=== PATIENT | female | born 1960 | race Hispanic/Latino ===

== ENCOUNTER 2018-12-27 07:14 | Emergency (ER) | payer OTHER ==
--- OUTSIDE RECORDS SUMMARY | 2018-12-27 07:17 | XMS REPORT | Clinical Summary ---
:1960 Author Organization [facility] Address [address] [place] [address] Care Team Providers Name Role Phone Terry Stapleton MD Primary Care Provider Allergies No Known Allergies Medications Medication Sig Dispensed Refills Start End Status Date Date insulin aspart U-100 Inject 15 Units 10 mL 0 Active (NOVOLOG) 100 unit/mL subcutaneously 3 018 injection (three) times daily before meals. metFORMIN (GLUCOPHAGE) Take 500 mg by 0 Active 500 MG tablet mouth 2 (two) times daily with breakfast and dinner. insulin glargine Inject 55 Units 45 mL 2 Active (LANTUS) 100 unit/mL subcutaneously 018 (3 mL) InPn every morning. zolpidem (AMBIEN) 10 Take 1 tablet (10 30 tablet 0 Active mg tablet mg total) by 018 mouth every night as needed for Insomnia. hydroCHLOROthiazide Take 1 tablet (25 90 tablet 0 12/23/2 12/23/ Active (HYDRODIURIL) 25 MG mg total) by 019 2020 tablet mouth daily. carvedilol (COREG) 25 Take 1 tablet (25 180 tablet 1 12/23/2 Active MG tablet mg total) by 019 mouth 2 (two) times daily with breakfast and dinner. valsartan (DIOVAN) 160 Take 1 tablet 90 tablet 0 12/23/2 Active MG tablet (160 mg total) by 019 mouth daily. isosorbide mononitrate Take 1 tablet (60 90 tablet 1 12/23/2 Active (IMDUR) 60 MG 24 hr mg total) by 019 tablet mouth daily. gabapentin (NEURONTIN) Take 1 capsule 90 capsule 0 Active 300 MG capsule (300 mg total) by 019 mouth 3 (three) times daily. glipiZIDE (GLUCOTROL Take 1 tablet (10 30 tablet 3 Active XL) 10 MG 24 hr tablet mg total) by 019 mouth daily. atorvastatin (LIPITOR) Take 1 tablet (20 90 tablet 3 Active 20 MG tablet mg total) by 019 mouth every evening. promethazine Take 1 tablet (25 15 tablet 0 12/28/11/23/ Discontinued (PHENERGAN) 25 MG mg total) by 2017 tablet mouth every 6 (six) hours as needed for Nausea for up to 15 doses. insulin aspart Inject 10 Units 10 mL 0 05/03/2 06/06/ Discontinued (NOVOLOG) 100 unit/mL subcutaneously 3 2017 injection (three) times daily before meals. insulin glargine Inject 45 Units 10 mL 0 05/03/2 06/06/ Discontinued (LANTUS) 100 unit/mL subcutaneously 2 2017 injection (two) times daily Use as directed. valsartan (DIOVAN) 160 Take 1 tablet 90 tablet 0 05/03/2 05/03/ MG tablet (160 mg total) by 2017 mouth daily. gabapentin (NEURONTIN) Take 1 capsule 90 capsule 0 07/30/2 02/15/ Discontinued 100 MG capsule (100 mg total) by 2017 mouth 3 (three) times daily. carvedilol (COREG) 25 Take 1 tablet (25 180 tablet 0 08/04/2 02/23/ Discontinued MG tablet mg total) by 2017 mouth 2 (two) times daily with breakfast and dinner. glipiZIDE (GLUCOTROL Take 1 tablet (10 30 tablet 3 08/04/2 02/03/ Discontinued XL) 10 MG 24 hr tablet mg total) by 2017 mouth daily. atorvastatin (LIPITOR) Take 1 tablet (20 90 tablet 3 06/06/ Discontinued 20 MG tablet mg total) by 2017 mouth every evening. torsemide (DEMADEX) 10 TAKE ONE TABLET 60 tablet 0 10/15/12/29/ Discontinued MG tablet BY MOUTH ONCE 2017 DAILY IN THE EVENING zolpidem (AMBIEN) 10 Take 1 tablet (10 30 tablet 0 10/18/01/24/ Discontinued mg tablet mg total) by 2017 mouth every night as needed for Insomnia. valsartan (DIOVAN) 160 TAKE ONE TABLET 90 tablet 0 11/03/2 01/27/ Discontinued MG tablet BY MOUTH ONCE 2017 DAILY isosorbide mononitrate TAKE ONE TABLET 90 tablet 0 11/15/2 02/05/ Discontinued (IMDUR) 60 MG 24 hr BY MOUTH ONCE 2017 tablet DAILY torsemide (DEMADEX) 10 TAKE ONE TABLET 60 tablet 0 01/03/2 03/04/ Discontinued MG tablet BY MOUTH ONCE 2017 DAILY IN THE EVENING benzonatate (TESSALON) Take 1 capsule 20 capsule 0 01/31/ 200 MG capsule (200 mg total) by 2017 mouth 3 (three) times daily as needed for Cough for up to 7 days. azithromycin Please give Z 6 tablet 0 06/06/ Discontinued (ZITHROMAX) 250 MG Pack. 2017 tablet mometasone (NASONEX) 2 sprays by Nasal 17 g 12 Discontinued 50 mcg/actuation nasal route daily. 2017 spray zolpidem (AMBIEN) 10 Take 1 tablet (10 30 tablet 0 06/06/ Discontinued mg tablet mg total) by 2017 mouth every night as needed for Insomnia. valsartan (DIOVAN) 160 TAKE ONE TABLET 90 tablet 0 01/27/2 04/26/ Discontinued MG tablet BY MOUTH ONCE 2017 DAILY glipiZIDE (GLUCOTROL Take 1 tablet (10 90 tablet 2 02/07/06/06/ Discontinued XL) 10 MG 24 hr tablet mg total) by 2017 mouth daily. isosorbide mononitrate TAKE ONE TABLET 90 tablet 0 02/07/04/07/ Discontinued (IMDUR) 60 MG 24 hr BY MOUTH ONCE 2017 tablet DAILY gabapentin (NEURONTIN) TAKE ONE CAPSULE 180 capsule 1 06/06/ Discontinued 100 MG capsule BY MOUTH THREE 2017 TIMES DAILY carvedilol (COREG) 25 Take 1 tablet (25 180 tablet 1 02/23/2 03/11/ Discontinued MG tablet mg total) by 2017 mouth 2 (two) times daily with breakfast and dinner. torsemide (DEMADEX) 10 TAKE 1 TABLET BY 60 tablet 0 03/08/2 06/06/ Discontinued MG tablet MOUTH ONCE DAILY 2017 IN THE EVENING carvedilol (COREG) 25 Take 1 tablet (25 180 tablet 1 06/06/ Discontinued MG tablet mg total) by 2017 mouth 2 (two) times daily with breakfast and dinner. isosorbide mononitrate TAKE 1 TABLET BY 90 tablet 0 2 06/06/ Discontinued (IMDUR) 60 MG 24 hr MOUTH ONCE DAILY 2017 tablet glipiZIDE (GLUCOTROL TAKE ONE TABLET 30 tablet 3 06/06/ Discontinued XL) 10 MG 24 hr tablet BY MOUTH ONCE 2017 DAILY valsartan (DIOVAN) 160 TAKE 1 TABLET BY 90 tablet 0 04/29/06/06/ Discontinued MG tablet MOUTH ONCE DAILY 2017 glipiZIDE (GLUCOTROL Take 1 tablet (10 30 tablet 3 12/23/ Discontinued XL) 10 MG 24 hr tablet mg total) by 2018 mouth daily. insulin glargine Inject 50 Units 10 mL 2 09/04/ (LANTUS) 100 unit/mL subcutaneously 2 2017 injection (two) times daily for 90 days Use as directed. carvedilol (COREG) 25 Take 1 tablet (25 180 tablet 1 12/23/ Discontinued MG tablet mg total) by 2018 mouth 2 (two) times daily with breakfast and dinner. valsartan (DIOVAN) 160 Take 1 tablet 90 tablet 0 10/26/ Discontinued MG tablet (160 mg total) by 2017 mouth daily. isosorbide mononitrate Take 1 tablet (60 90 tablet 0 10/17/ Discontinued (IMDUR) 60 MG 24 hr mg total) by 2017 tablet mouth daily. gabapentin (NEURONTIN) Take 1 capsule 180 capsule 1 09/16/ Discontinued 100 MG capsule (100 mg total) by 2017 mouth 3 (three) times daily. glipiZIDE (GLUCOTROL Take 1 tablet (10 90 tablet 2 09/16/ Discontinued XL) 10 MG 24 hr tablet mg total) by 2017 mouth daily. atorvastatin (LIPITOR) Take 1 tablet (20 90 tablet 3 12/23/ Discontinued 20 MG tablet mg total) by 2018 mouth every evening. torsemide (DEMADEX) 10 Take 1 tablet (10 90 tablet 2 11/23/ Discontinued MG tablet mg total) by 2017 mouth every evening. insulin aspart U-100 Inject 10 Units 10 mL 0 Discontinued (NOVOLOG) 100 unit/mL subcutaneously 3 2017 injection (three) times daily before meals. zolpidem (AMBIEN) 10 Take 1 tablet (10 30 tablet 0 11/23/ Discontinued mg tablet mg total) by 2017 mouth every night as needed for Insomnia. gabapentin (NEURONTIN) Take 1 capsule 90 capsule 0 Discontinued 300 MG capsule (300 mg total) by 2018 mouth 3 (three) times daily. metFORMIN (GLUCOPHAGE) Take 1 tablet 180 tablet 3 Discontinued 1000 MG tablet (1,000 mg total) 2017 by mouth 2 (two) times daily with breakfast and dinner. insulin glargine Inject 55 Units 0 Discontinued (LANTUS) 100 unit/mL subcutaneously 2 2017 (3 mL) InPn (two) times daily. insulin glargine Inject 55 Units 45 mL 2 Discontinued (LANTUS) 100 unit/mL subcutaneously 2 2017 (3 mL) InPn (two) times daily. isosorbide mononitrate Take 1 tablet (60 90 tablet 1 Discontinued (IMDUR) 60 MG 24 hr mg total) by 2018 tablet mouth daily. valsartan (DIOVAN) 160 Take 1 tablet 90 tablet 1 10/31/ Discontinued MG tablet (160 mg total) by 2017 mouth daily. valsartan (DIOVAN) 320 Take 0.5 tablets 90 tablet 0 11/23/ Discontinued MG tablet (160 mg total) by 2017 mouth daily. valsartan (DIOVAN) 160 Take 160 mg by 0 12/23/ Discontinued MG tablet mouth daily. 2019 Active Problems Problem Noted Date Chronic systolic congestive heart failure 01/10/2016 Ingrowing nail with infection 01/10/2016 Pancreatitis 12/06/2014 CHF (congestive heart failure) 07/05/2013 Chest pain 07/05/2013 HTN (hypertension) 07/05/2013 DM type 2 (diabetes mellitus, type 2) 07/05/2013 Encounters Date Type Specialty Care Team Description 12/23/2018 Office Visit Cardiology Sincere Monte MD 12/19/2018 Telephone Cardiology Eleanor Miner, RN 11/23/2018 Office Visit Cardiology Sincere Monte MD Type 2 diabetes mellitus without complication, with long-term current use of insulin (HCC) ( Primary Dx); Type 2 diabetes mellitus with complication, unspecified whether nursing home insulin use (HCC) 11/23/2018 Orders Only Cardiology Sincere Monte MD Type 2 diabetes mellitus with complication, unspecified whether rat exterminator insulin use (HCC) (Primary Dx) 10/31/2018 Refill Cardiology Sincere Monte MD 10/28/2018 Telephone Cardiology Eleanor Miner RN 10/26/2018 Refill Cardiology Sincere Monte MD 10/21/2018 Refill Cardiology Sincere Monte MD 10/17/2018 Refill Cardiology Sincere Monte MD 10/11/2018 Refill Cardiology Sincere Monte MD 09/19/2018 Telephone Cardiology Eleanor Miner, RN 09/16/2018 Office Visit Cardiology Sincere Monte MD Type 2 diabetes mellitus without complication, with long-term current use of insulin (HCC) ( Primary Dx); Essential hypertension with goal blood pressure less than 130/80; Obesity, unspecified obesity severity, unspecified obesity type; Chronic systolic congestive heart failure (HCC); MARITZA (obstructive sleep apnea) 09/15/2018 Abstract Cardiology Eleanor Miner, RN 06/06/2018 Office Visit Cardiology Sincere Monte MD Type 2 diabetes mellitus without complication, with long-term current use of insulin (HCC) ( Primary Dx); Essential hypertension with goal blood pressure less than 130/80; Obesity, unspecified obesity severity, unspecified obesity type; Chronic systolic congestive heart failure (HCC) 06/06/2018 Refill Cardiology Sincere Monte MD 06/03/2018 Refill Cardiology Sincere Monte MD 05/24/2018 Refill Cardiology Sincere Monte MD 04/26/2018 Refill Cardiology Sincere Monte MD 04/19/2018 Refill Cardiology Sincere Monte MD 04/07/2018 Refill Cardiology Sincere Monte MD 03/18/2018 Refill Cardiology Sincere Monte MD 03/11/2018 Refill Cardiology Sincere Monte MD 03/04/2018 Refill Cardiology Sincere Monte MD 02/23/2018 Refill Cardiology Sincere Monte MD 02/15/2018 Refill Cardiology Sincere Monte MD 02/05/2018 Refill Cardiology Sincere Monte MD 02/03/2018 Refill Cardiology Sincere Monte MD 01/27/2018 Refill Cardiology Sincere Monte MD 01/24/2018 Office Visit Cardiology Sincere Monte MD Type 2 diabetes mellitus without complication, without long-term current use of insulin (HCC) ( Primary Dx); Essential hypertension with goal blood pressure less than 130/80; Obesity, unspecified obesity severity, unspecified obesity type; MARITZA (obstructive sleep apnea); Chronic systolic congestive heart failure (HCC) 12/29/2017 Refill Cardiology Sincere Monte MD after 12/26/2017 Immunizations Name Dates Previously Given Next Due Influenza TIV (IM) 09/14/2018, 10/30/2017 Pneumococcal Polysaccharide (Pneumovax) 09/14/2018, 12/07/2014 Family History Medical History Relation Name Comments Diabetes Brother Diabetes Father Heart disease Father Diabetes Sister Relation Name Status Comments Brother Father Sister Social History Tobacco Use Types Packs/Day Years Used Date Never Smoker Smokeless Tobacco: Never Used Alcohol Use Drinks/Week oz/Week Comments No Sex Assigned at Date Recorded Not on file Job Start Date Occupation Industry Not on file Not on file Not on file Travel History Travel Start Travel End No recent travel history available. Last Filed Vital Signs Vital Sign Reading Time Taken Blood Pressure 178/84 12/23/2018 10:41 AM [employer] Pulse 66 12/23/2018 9:52 AM [employer] Temperature 36.9 C (98.4 F) 12/23/2018 9:52 AM [employer]ER Respiratory Rate 14 12/23/2018 9:52 AM [employer] DES[employer]ER Oxygen Saturation 97% 12/23/2018 9:52 AM [employer] DES[employer]ER Inhaled Oxygen Concentration - - Weight 105.7 kg (233 lb) 12/23/2018 9:52 AM [employer] Height 165.1 cm (5' 5") 12/23/2018 9:52 AM [employer] Body Mass Index 38.77 12/23/2018 9:52 AM [employer] Plan of Treatment Date Type Specialty Care Team Description 02/20/2019 Office Visit Cardiology Sincere Monte MD [address] [facility] [place] [address] Health Maintenance Due Date Last Done Comments INFLUENZA VACCINE 08/29/2018 Procedures Procedure Name Priority Date/Time Associated Comments Diagnosis HEMOGLOBIN A1C STAT 11/23/2018 9:50 Type 2 diabetes Results for this AM [employer] mellitus with procedure are in complication, the results unspecified whether section. rat exterminator insulin use ([facility]) COMPREHENSIVE STAT 06/06/2018 11:29 Type 2 diabetes Results for this METABOLIC PANEL AM CDT mellitus without procedure are in complication, with the results long-term current section. use of insulin ([facility]) LIPID PANEL STAT 06/06/2018 11:29 Type 2 diabetes Results for this AM CDT mellitus without procedure are in complication, with the results long-term current section. use of insulin ([facility]) HEMOGLOBIN A1C Routine 06/06/2018 11:29 Type 2 diabetes Results for this AM CDT mellitus without procedure are in complication, with the results long-term current section. use of insulin ([facility]) TSH/FREE T4 IF Routine 06/06/2018 11:29 Type 2 diabetes Results for this INDICATED AM CDT mellitus without procedure are in complication, with the results long-term current section. use of insulin ([facility]) HEMOGLOBIN A1C Routine 01/24/2018 11:41 Type 2 diabetes Results for this AM [employer] mellitus without procedure are in complication, the results without long-term section. 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 Hemoglobin A1C 8.5 (H) 4.3 - 6.1 % [facility] Specimen Blood Performing Organization Address City/State/Zipcode Phone Number [address] [address] [place] TSH/Free T4 If Indicated (06/06/2018 11:29 AM CDT) TSH 2.33 0.35 - 4.94 uIU/mL [facility] Specimen Blood Performing Organization Address City/[facility] Phone Number [address] [address] [place] Lipid panel (06/06/2018 11:29 AM CDT) Triglycerides 116 mg/dL [facility] Cholesterol 130 mg/dL [facility] HDL 34 mg/dL [facility] LDL Calculated 73 mg/dL [facility] Specimen Blood Narrative Performed At [facility] Triglyceride Reference Range: Low Risk <150 [id number] High Risk 200-499 Very High Risk>=500 Cholesterol Reference Range: Low Risk <200 [id number] High Risk>240 HDL Cholesterol Reference Range: Low Risk >=60 High Risk <40 LDL Cholesterol Reference Range: Optimal<100 Near [id number] Very High >=190 Performing Organization Address City/[facility] Phone Number [address] [address] [phone] [place] Comprehensive metabolic panel (06/06/2018 11:29 AM CDT) Protein, Total 7.2 6.0 - 8.3 gm/dL [facility] Albumin 3.8 3.5 - 5.0 g/dL [facility] Alkaline Phosphatase 141 40 - 150 U/L [facility] Total Bilirubin 0.7 0.2 - 1.2 mg/dL [facility] Sodium 133 (L) 136 - 145 meq/L [facility] Potassium 4.1 3.5 - 5.1 meq/L [facility] Chloride 100 98 - 107 meq/L [facility] CO2 27 22 - 29 meq/L [facility] BUN 21 7 - 21 mg/dL [facility] Creatinine 1.22 0.57 - 1.25 mg/dL [facility] Glucose 293 (H) 70 - 105 mg/dL [facility] Calcium 9.3 8.4 - 10.2 mg/dL [facility] AST 16 5 - 34 U/L [facility] ALT 16 6 - 55 U/L [facility] EGFR 45Comment: ESTIMATED GFR mL/min/1.73 sq m [facility] IS NOT ACCURATE [facility] CREATININE CLEARANCE IN PREDICTING GLOMERULAR FILTRATION RATE. ESTIMATED GFR IS NOT APPLICABLE FOR DIALYSIS PATIENTS. Specimen Blood Performing Organization Address City/State/Zipcode Phone Number [facility] [address] [place] [phone] CENTER after 12/26/2017 Insurance Payer Benefit Plan / Group Subscriber ID Type Phone Address MEDICARE MEDICARE A B xxxxxxxxxxx Medicare Advance Directives For more information, please contact:[address] [phone] Code Status Date Activated Date Inactivated Comments Full Code 12/06/2014 8:09 AM 12/11/2014 5:51 PM This code status was determined by: Patient Code ONE 07/05/2013 10:30 AM 07/07/2013 6:37 PM All possible means of support, including: cardiac massage, mechanical ventilation, and defibrillation will be used to support life.
--- OUTSIDE RECORDS SUMMARY | 2018-12-27 07:18 | XMS REPORT ---
:1960 Author Organization [facility] Address [address] [place] [address] Dr. Paredes [address] [place] [id number] Care Team Providers Name Role Phone RADHA WADE Unavailable Unavailable ELSA AVITIA Unavailable Unavailable Problems This patient has no known problems. Allergies, Adverse Reactions, Alerts This patient has no known allergies or adverse reactions. Medications This patient has no known medications. Results Test Description Test Time Test Comments Text Results Atomic Results Result Comments HEMOGLOBIN A1C 2018-11-23 11:30:00 Test Item Value Reference Range Comments HEMOGLOBIN A1C (BEAKER) (test tgfj=251) 8.5 % 4.3-6.1 HEMOGLOBIN [id number] 13:33:00 Test Item Value Reference Range Comments HEMOGLOBIN A1C (BEAKER) (test fycs=723) 10.9 % 4.3-6.1 TSH/FREE T4 IF [id number] 12:27:00 Test Item Value Reference Range Comments THYROID STIMULATING HORMONE (BEAKER) (test 2.33 uIU/mL 0.35-4.94 chom=874) LIPID [id number] 12:10:00 Test Item Value Reference Range Comments TRIGLYCERIDES (BEAKER) (test octi=072) 116 mg/dL CHOLESTEROL (BEAKER) (test mtkr=060) 130 mg/dL HDL CHOLESTEROL (BEAKER) (test kfde=597) 34 mg/dL LDL CHOLESTEROL CALCULATED (BEAKER) (test 73 mg/dL gtrq=163) Triglyceride Reference Range: Low Risk <150 Borderline 150- 199 High Risk 200-499 Very High Risk >=500Cholesterol Reference Range: Low Risk <200 Borderline 200-239 High Risk > 240HDL Cholesterol Reference Range: Low Risk >=60 High Risk <40LDL Cholesterol Reference Range: Optimal <100 Near Optimal 100-129 Borderline 130-159 High 160-189 Very High >=190COMPREHENSIVE METABOLIC [id number] 12:10:00 Test Item Value Reference Range Comments TOTAL PROTEIN (BEAKER) 7.2 gm/dL 6.0-8.3 (test uftb=128) ALBUMIN (BEAKER) (test 3.8 g/dL 3.5-5.0 irti=2028) ALKALINE PHOSPHATASE 141 U/L 40-150 (BEAKER) (test fjej=555) BILIRUBIN TOTAL (BEAKER) 0.7 mg/dL 0.2-1.2 (test sjnd=691) SODIUM (BEAKER) (test 133 meq/L 136-145 hizp=538) POTASSIUM (BEAKER) (test 4.1 meq/L 3.5-5.1 ylvz=189) CHLORIDE (BEAKER) (test 100 meq/L 98-107 thiu=186) CO2 (BEAKER) (test 27 meq/L 22-29 rghs=703) BLOOD UREA NITROGEN 21 mg/dL 7-21 (BEAKER) (test mhlv=505) CREATININE (BEAKER) (test 1.22 mg/dL 0.57-1.25 bagd=058) GLUCOSE RANDOM (BEAKER) 293 mg/dL 70-105 (test zqpl=583) CALCIUM (BEAKER) (test 9.3 mg/dL 8.4-10.2 tcwo=398) AST (SGOT) (BEAKER) (test 16 U/L 5-34 urpe=769) ALT (SGPT) (BEAKER) (test 16 U/L 6-55 dmrh=470) EGFR (BEAKER) (test 45 mL/min/1.73 sq m ESTIMATED GFR IS NOT dqma=1134) ACCURATE CREATININE CLEARANCE IN PREDICTING GLOMERULAR FILTRATION RATE. ESTIMATED GFR IS NOT APPLICABLE FOR DIALYSIS PATIENTS. HEMOGLOBIN [id number] 13:44:00 Test Item Value Reference Range Comments HEMOGLOBIN A1C (BEAKER) (test tmda=393) 10.8 % 4.3-6.1 HEMOGLOBIN [id number] 09:58:00 Test Item Value Reference Range Comments HEMOGLOBIN A1C (BEAKER) (test wpsp=445) 8.3 % 4.3-6.1 TSH/FREE T4 IF [id number] 13:49:00 Test Item Value Reference Range Comments THYROID STIMULATING HORMONE (BEAKER) (test 1.94 uIU/mL 0.35-4.94 guui=518) HEMOGLOBIN [id number] 12:27:00 Test Item Value Reference Range Comments HEMOGLOBIN A1C (BEAKER) (test hbcw=244) 11.3 % 4.3-6.1 LIPID [id number] 11:56:00 Test Item Value Reference Range Comments TRIGLYCERIDES (BEAKER) (test ical=520) 162 mg/dL CHOLESTEROL (BEAKER) (test xpno=134) 136 mg/dL HDL CHOLESTEROL (BEAKER) (test vuyg=805) 33 mg/dL LDL CHOLESTEROL CALCULATED (BEAKER) (test 71 mg/dL ubjb=553) Triglyceride Reference Range: Low Risk <150 Borderline 150- 199 High Risk 200-499 Very High Risk >=500Cholesterol Reference Range: Low Risk <200 Borderline 200-239 High Risk > 240HDL Cholesterol Reference Range: Low Risk >=60 High Risk <40LDL Cholesterol Reference Range: Optimal <100 Near Optimal 100-129 Borderline 130-159 High 160-189 Very High >=190COMPREHENSIVE METABOLIC [id number] 11:56:00 Test Item Value Reference Range Comments TOTAL PROTEIN (BEAKER) 6.8 gm/dL 6.0-8.3 (test tfmm=967) ALBUMIN (BEAKER) (test 3.6 g/dL 3.5-5.0 ovvh=6190) ALKALINE PHOSPHATASE 138 U/L 40-150 (BEAKER) (test gfwk=790) BILIRUBIN TOTAL (BEAKER) 0.5 mg/dL 0.2-1.2 (test zvwb=981) SODIUM (BEAKER) (test 135 meq/L 136-145 jbjr=085) POTASSIUM (BEAKER) (test 4.5 meq/L 3.5-5.1 biby=401) CHLORIDE (BEAKER) (test 103 meq/L 98-107 meot=992) CO2 (BEAKER) (test 25 meq/L 22-29 jfnb=459) BLOOD UREA NITROGEN 25 mg/dL 7-21 (BEAKER) (test qpqv=042) CREATININE (BEAKER) (test 1.16 mg/dL 0.57-1.25 kceq=194) GLUCOSE RANDOM (BEAKER) 341 mg/dL 70-105 (test nzmr=234) CALCIUM (BEAKER) (test 8.8 mg/dL 8.4-10.2 axbv=101) AST (SGOT) (BEAKER) (test 15 U/L 5-34 jmoi=106) ALT (SGPT) (BEAKER) (test 15 U/L 6-55 xyyn=437) EGFR (BEAKER) (test 48 mL/min/1.73 sq m ESTIMATED GFR IS NOT zjzg=5423) ACCURATE CREATININE CLEARANCE IN PREDICTING GLOMERULAR FILTRATION RATE. ESTIMATED GFR IS NOT APPLICABLE FOR DIALYSIS PATIENTS. [id number] 09:01:00 Test Item Value Reference Range Comments D-DIMER QUANTITATIVE (BEAKER) (test owdw=643) < MG/L FEU <0.50 Intended Use: The D-Dimer Assay can be used to aid in the diagnosis of Deep Vein Thrombosis (DVT) and Pulmonary Embolism Disease (PED).In patients with low pre-test probability, various studies concerning STA Liatest D-dimer test have reported that with a cutoff value of 0.50 MG/L FEU, the Negative Predictive Value (NPV) regarding the exclusion of thrombosis is within 95-100% range.CREATINE KINASE (CK), TOTAL AND [id number] 09:01:00 Test Item Value Reference Range Comments CREATINE KINASE TOTAL (BEAKER) (test jggf=474) 43 U/L 29-200 CREATINE KINASE-MB (BEAKER) (test zkfw=803) 0.7 ng/mL 0.0-6.6 CREATINE KINASE-MB INDEX (BEAKER) (test buvk=979) 1.6 % Effective 10/16/2014: CK-MB Reference Range ChangeNew: 0.0-6.6 Previous: 0.0- 4.9CK-MB Reference Range:<6.7 Normal6.7-10.0 Borderline>10.0 AbnormalTROPONIN [id number] 09:01:00 Test Item Value Reference Range Comments TROPONIN I (BEAKER) (test ulsz=338) 0.02 ng/mL 0.00-0.03 Effective 10/16/2014: Reference Range ChangeNew: 0.00-0.03 Previous 0.00- 0.15Troponin I (TnI) levels must be interpreted in the context of the presenting symptoms and the clinical findings. Elevated TnI levels indicate myocardial damage, but are not specific for ischemic heart disease. Elevated TnI levels are seen in patients with other cardiac conditions (including myocarditis and congestive heartfailure), and slight TnI elevations occur in patients with other conditions, including sepsis, renalfailure, acidosis, acute neurological disease, and persistent tachyarrhythmia.BASIC METABOLIC [id number] 08:53:00 Test Item Value Reference Range Comments SODIUM (BEAKER) (test 136 meq/L 136-145 zioz=486) POTASSIUM (BEAKER) (test 4.1 meq/L 3.5-5.1 ssqp=959) CHLORIDE (BEAKER) (test 102 meq/L 98-107 pgrg=473) CO2 (BEAKER) (test 25 meq/L 22-29 ohfw=816) BLOOD UREA NITROGEN 16 mg/dL 7-21 (BEAKER) (test qemw=133) CREATININE (BEAKER) (test 1.00 mg/dL 0.57-1.25 bkvq=354) GLUCOSE RANDOM (BEAKER) 186 mg/dL 70-105 (test tkjh=852) CALCIUM (BEAKER) (test 9.4 mg/dL 8.4-10.2 unpl=949) EGFR (BEAKER) (test 57 mL/min/1.73 sq m ESTIMATED GFR IS NOT paan=6717) ACCURATE CREATININE CLEARANCE IN PREDICTING GLOMERULAR FILTRATION RATE. ESTIMATED GFR IS NOT APPLICABLE FOR DIALYSIS PATIENTS. CBC W/PLT COUNT & AUTO [id number] 08:30:00 Test Item Value Reference Range Comments WHITE BLOOD CELL COUNT (BEAKER) (test crdb=314) 9.2 K/ L 4.0-10.0 RED BLOOD CELL COUNT (BEAKER) (test xvkz=673) 4.74 M/ L 4.00-5.00 HEMOGLOBIN (BEAKER) (test ctbc=734) 14.5 GM/DL 12.0-15.0 HEMATOCRIT (BEAKER) (test kknj=293) 43.7 % 36.0-45.0 MEAN CORPUSCULAR VOLUME (BEAKER) (test kqot=746) 92.2 fL 82.0-99.0 MEAN CORPUSCULAR HEMOGLOBIN (BEAKER) (test 30.7 pg 27.0-33.0 pltx=371) MEAN CORPUSCULAR HEMOGLOBIN CONC (BEAKER) (test 33.3 GM/DL 32.0-36.0 gwya=676) RED CELL DISTRIBUTION WIDTH (BEAKER) (test 12.0 % 10.3-14.2 jmaq=044) PLATELET COUNT (BEAKER) (test gtzb=364) 247 K/CU MM 150-430 MEAN PLATELET VOLUME (BEAKER) (test wvqx=045) 7.8 fL 6.5-10.5 NUCLEATED RED BLOOD CELLS (BEAKER) (test 0 /100 WBC 0-0 fkny=313) NEUTROPHILS RELATIVE PERCENT (BEAKER) (test 57 % tulj=127) LYMPHOCYTES RELATIVE PERCENT (BEAKER) (test 35 % vtra=512) MONOCYTES RELATIVE PERCENT (BEAKER) (test 6 % ztjr=922) EOSINOPHILS RELATIVE PERCENT (BEAKER) (test 2 % aqeo=806) BASOPHILS RELATIVE PERCENT (BEAKER) (test 0 % zing=678) NEUTROPHILS ABSOLUTE COUNT (BEAKER) (test 5.30 K/ L 1.80-8.00 uzuj=983) LYMPHOCYTES ABSOLUTE COUNT (BEAKER) (test 3.21 K/ L 1.48-4.50 sdri=685) MONOCYTES ABSOLUTE COUNT (BEAKER) (test 0.51 K/ L 0.00-1.30 hvzs=455) EOSINOPHILS ABSOLUTE COUNT (BEAKER) (test 0.19 K/ L 0.00-0.50 xlxr=018) BASOPHILS ABSOLUTE COUNT (BEAKER) (test 0.03 K/ L 0.00-0.20 bovc=555) 0.00
[2018-12-27] MEDS ORDERED: METOCLOPRAMIDE 10 MG/2mL INJ ONE (07:45)
[2018-12-27] MEDS ORDERED: KETOROLAC 30 MG/ML INJ ONE (07:46)
[2018-12-27] MEDS ORDERED: NA CHLORIDE 0.9% 1,000 ML ONE (07:46)
[2018-12-27] MEDS ORDERED: DIPHENHYDRAMINE 50 MG/ML VIAL ONE (07:46)
--- NOTE | 2018-12-27 08:52 | EDPHYS ---
Physician Documentation [facility] Name: Terese Alaniz Age: 58 yrs Sex: Female : 1960 Arrival Date: 12/27/2018 Time: 07:18 Bed 7 Private MD: Out, of [facility], [facility] ED Physician Tahira De Los Santos HPI: 12/27 07:33 This 58 yrs old Female presents to ER via Ambulatory with complaints of High ma2 Blood Pressure. 07:33 The patient has elevated blood pressure and discovered this at home. Modifying factors: ma2 The symptoms are alleviated by remaining still, OTC meds, prescription meds. Associated signs and symptoms: Pertinent positives: mild constant headache that is gradual x 1 week has had this before no other symptoms no weakness . Severity of symptoms: At its worst the blood pressure was moderate, in the emergency department the blood pressure is unchanged. The patient has experienced similar episodes in the past. Historical: - Allergies: 07:28 No Known Allergies; ss - PMHx: 07:20 CHF; Hypertension; tw2 07:28 High Cholesterol; Diabetes - IDDM; ss - PSHx: 07:20 ; Cholecystectomy; tw2 - Immunization history:: Adult Immunizations. - Social history:: Smoking status: Patient/guardian denies using alcohol, street drugs, The patient lives with family. - Ebola Screening: : Patient denies travel to an Ebola-affected area in the 21 days before illness onset. - Family history:: not pertinent. ROS: 07:33 Constitutional: Negative for fever, chills, and weight loss, Cardiovascular: Negative ma2 for chest pain, palpitations, and edema, Respiratory: Negative for shortness of breath, cough, wheezing, and pleuritic chest pain, Back: Negative for injury and pain. 07:33 Neuro: Positive for headache, Negative for altered mental status, dizziness, gait disturbance, hearing loss, loss of consciousness, numbness, seizure activity, speech changes, syncope, near syncope, tinnitus, tremor, visual changes. 07:33 All other systems are negative. Exam: 07:33 Constitutional: This is a well developed, well nourished patient who is awake, alert, ma2 and in no acute distress. Chest/axilla: Normal chest wall appearance and motion. Nontender with no deformity. No lesions are appreciated. Cardiovascular: Regular rate and rhythm with a normal S1 and S2. No gallops, murmurs, or rubs. Normal PMI, no JVD. No pulse deficits. Respiratory: Lungs have equal breath sounds bilaterally, clear to auscultation and percussion. No rales, rhonchi or wheezes noted. No increased work of breathing, no retractions or nasal flaring. Abdomen/GI: Soft, non-tender, with normal bowel sounds. No distension or tympany. No guarding or rebound. No evidence of tenderness throughout. MS/ Extremity: Pulses equal, no cyanosis. Neurovascular intact. Full, normal range of motion. Neuro: Awake and alert, GCS 15, oriented to person, place, time, and situation. Cranial nerves II-XII grossly intact. Motor strength 5/5 in all extremities. Sensory grossly intact. Cerebellar exam normal. Normal gait. Vital Signs: 07:22 BP 180 / 91; Pulse 69; Resp 17; Pulse Ox 99% on R/A; tw2 07:25 Temp 97.5(O); Weight 104.33 kg; Height 5 ft. 5 in. (165.10 cm); Pain 7/10; ss 07:57 BP 175 / 87; Pulse 70; Resp 17; Pulse Ox 100% on R/A; tw2 08:54 BP 152 / 77; Pulse 69; Resp 17; Pulse Ox 98% on R/A; tw2 09:45 BP 147 / 68; Pulse 63; Resp 17; Pulse Ox 99% on R/A; tw2 07:25 Body Mass Index 38.27 (104.33 kg, 165.10 cm) ss MDM: 07:24 Patient medically screened. cp 07:33 Differential diagnosis: migraine headache vs tension vs cluster headache. [facility] 08:51 Data reviewed: vital signs, nurses notes. Counseling: I had a detailed discussion with [facility] the patient and/or guardian regarding: the historical points, exam findings, and any diagnostic results supporting the discharge/admit diagnosis, the presence of at least one elevated blood pressure reading (>120/80) during this emergency department visit, the need for outpatient follow up. Response to treatment: the patient's symptoms have resolved after treatment. 12/27 07:45 Order name: IV Start; Complete Time: 07:56 tw2 Administered Medications: 07:52 Drug: Benadryl 50 mg Route: IVP; Site: right wrist; jl7 08:30 Follow up: Response: No adverse reaction; Pain is decreased jl7 07:55 Drug: Reglan 10 mg Route: IVP; Site: right wrist; jl7 08:30 Follow up: Response: No adverse reaction; Pain is decreased jl7 07:55 Drug: TORadol 30 mg Route: IVP; Site: right wrist; jl7 08:30 Follow up: Response: No adverse reaction; Pain is decreased jl7 07:56 Drug: NS 0.9% 1000 ml Route: IV; Rate: 1 bolus; Site: right wrist; jl7 09:50 Follow up: Response: No adverse reaction; IV Status: Completed infusion; IV Intake: tw2 1000ml Disposition: 12/27/18 08:52 Discharged to Home. Impression: Tension-type headache. - Condition is Stable. - Discharge Instructions: General Headache Without Cause. - Prescriptions for Reglan 10 mg Oral Tablet - take 1 tablet by ORAL route every 6 hours take 30 minutes before meals and at bedtime; 20 tablet. - Medication Reconciliation Form, Thank You Letter, Antibiotic Education, Prescription Opioid Use form. - Follow up: Private Physician; When: Tomorrow; Reason: If symptoms return, Continuance of care. Signatures: Clotilde Miguel RN RN Akash Sevilla PA PA cp Wise, Tara, RN RN tw2 Alva Greenwood RN RN jl7 Tahira De Los Santos MD MD ma2 Corrections: (The following items were deleted from the chart) 07:28 07:20 PMHx: Diabetes - NIDDM; tw2 09:49 08:52 12/27/2018 08:52 Discharged to Home. Impression: Tension-type headache. Condition tw2 is Stable. Forms are Medication Reconciliation Form, Thank You Letter, Antibiotic Education, Prescription Opioid Use. Follow up: Private Physician; When: Tomorrow; Reason: If symptoms return, Continuance of care. ma2
--- NOTE | 2018-12-27 08:52 | ER ---
Nurse's Notes [facility] Name: Terese Alaniz Age: 58 yrs Sex: Female : 1960 Arrival Date: 12/27/2018 Time: 07:18 Bed 7 Private MD: Out, [facility] Diagnosis: Tension-type headache Presentation: 12/27 07:21 Initial Sepsis Screen: Does the patient meet any 2 criteria? No. Patient's initial tw2 sepsis screen is negative. Does the patient have a suspected source of infection? No. Patient's initial sepsis screen is negative. 07:22 Risk Assessment: Do you want to hurt yourself or someone else? Patient reports no tw2 desire to harm self or others. 07:22 Acuity: VISHUN 3 tw2 07:25 Presenting complaint: Patient states: High blood pressure x several days despite taking ss medication. Pt also c/o headache that began last night, 06/07. Transition of care: patient was not received from another setting of care. Onset of symptoms is unknown. Care prior to arrival: None. 07:25 Method Of Arrival: Ambulatory ss 07:25 Note Pt reports she has not taken her daily medication yet today. ss Historical: - Allergies: 07:28 No Known Allergies; ss - PMHx: 07:20 CHF; Hypertension; tw2 07:28 High Cholesterol; Diabetes - IDDM; ss - PSHx: 07:20 ; Cholecystectomy; tw2 - Immunization history:: Adult Immunizations. - Social history:: Smoking status: Patient/guardian denies using alcohol, street drugs, The patient lives with family. - Ebola Screening: : Patient denies travel to an Ebola-affected area in the 21 days before illness onset. - Family history:: not pertinent. Screenin:20 Abuse screen: Denies threats or abuse. Nutritional screening: No deficits noted. tw2 Tuberculosis screening: No symptoms or risk factors identified. Fall Risk None identified. Assessment: 07:25 Reassessment: Dr. De Los Santos at bedside at this time. General: Appears in no apparent tw2 distress. obese, Behavior is calm, cooperative, appropriate for age. Pain: Complains of pain in "headache". Neuro: Level of Consciousness is awake, alert, obeys commands, Oriented to person, place, time, situation. Cardiovascular: Heart tones S1 S2 Patient's skin is warm and dry. Respiratory: Airway is patent Respiratory effort is even, unlabored, Respiratory pattern is regular, symmetrical, Breath sounds are clear bilaterally. GI: No signs and/or symptoms were reported involving the gastrointestinal system. Abdomen is round non-distended, obese, Bowel sounds present X 4 quads. : No signs and/or symptoms were reported regarding the genitourinary system. EENT: No signs and/or symptoms were reported regarding the EENT system. Derm: No signs and/or symptoms reported regarding the dermatologic system. Musculoskeletal: Range of motion: intact in all extremities. 08:54 Reassessment: Patient appears in no apparent distress at this time. Patient and/or tw2 family updated on plan of care and expected duration. Pain level reassessed. Patient is alert, oriented x 3, equal unlabored respirations, skin warm/dry/pink. 09:46 Reassessment: Patient appears in no apparent distress at this time. Patient and/or tw2 family updated on plan of care and expected duration. Pain level reassessed. Patient is alert, oriented x 3, equal unlabored respirations, skin warm/dry/pink. Vital Signs: 07:22 BP 180 / 91; Pulse 69; Resp 17; Pulse Ox 99% on R/A; tw2 07:25 Temp 97.5(O); Weight 104.33 kg; Height 5 ft. 5 in. (165.10 cm); Pain 7/10; ss 07:57 BP 175 / 87; Pulse 70; Resp 17; Pulse Ox 100% on R/A; tw2 08:54 BP 152 / 77; Pulse 69; Resp 17; Pulse Ox 98% on R/A; tw2 09:45 BP 147 / 68; Pulse 63; Resp 17; Pulse Ox 99% on R/A; tw2 07:25 Body Mass Index 38.27 (104.33 kg, 165.10 cm) ss ED Course: 07:18 Patient arrived in ED. dl4 07:19 Out, [facility] is Private Physician. dl4 07:19 Bobbi Esposito, JEWELL is Primary Nurse. tw2 07:19 Arm band placed on. tw2 07:20 Bed in low position. Call light in reach. residential monitor on. Pulse ox on. NIBP on. tw2 07:22 Triage completed. tw2 07:24 Akash Sevilla PA is PHCP. cp 07:31 Tahira De Los Santos MD is Attending Physician. ma2 07:42 No provider procedures requiring assistance completed. Missed attempt(s): 22 gauge in tw2 left antecubital area. Bleeding controlled, band aid applied, catheter tip intact. Missed attempt(s): 24 gauge in left hand. Bleeding controlled, band aid applied, catheter tip intact. Missed attempt(s): 24 gauge in right hand. per JEWELL Calle. Bleeding controlled, band aid applied, catheter tip intact. 07:47 Missed attempt(s): 22 gauge in right forearm. per Astrid Mcnamara. Bleeding controlled, band tw2 aid applied, catheter tip intact. 07:50 Inserted saline lock: 22 gauge in right wrist, using aseptic technique. ms 08:55 Awaiting: completion of IV fluids PRIOR to discharge. tw2 09:49 IV discontinued, intact, bleeding controlled, No redness/swelling at site. Pressure tw2 dressing applied. Administered Medications: 07:52 Drug: Benadryl 50 mg Route: IVP; Site: right wrist; jl7 08:30 Follow up: Response: No adverse reaction; Pain is decreased jl7 07:55 Drug: Reglan 10 mg Route: IVP; Site: right wrist; jl7 08:30 Follow up: Response: No adverse reaction; Pain is decreased jl7 07:55 Drug: TORadol 30 mg Route: IVP; Site: right wrist; jl7 08:30 Follow up: Response: No adverse reaction; Pain is decreased jl7 07:56 Drug: NS 0.9% 1000 ml Route: IV; Rate: 1 bolus; Site: right wrist; jl7 09:50 Follow up: Response: No adverse reaction; IV Status: Completed infusion; IV Intake: tw2 1000ml Intake: 09:50 IV: 1000ml; Total: 1000ml. tw2 Outcome: 08:52 Discharge ordered by . ma2 09:49 Discharged to home ambulatory, with family. tw2 09:49 Condition: stable 09:49 Discharge instructions given to patient, family, Instructed on discharge instructions, follow up and referral plans. no drinking with medication, no driving heavy equipment, medication usage, Demonstrated understanding of instructions, follow-up care, medications, Prescriptions given X 1. 09:49 Patient left the ED. tw2 Signatures: Naima Mcginnis ms, Shelby, RN RN ss Akash Sevilla PA PA cp Wise, Tara, RN RN tw2 Alva Greenwood RN RN jl7 Tahira De Los Santos MD MD ma2 Obinna Posey dl4 Corrections: (The following items were deleted from the chart) 07:20 PMHx: Diabetes - NIDDM; tw2 ss
== END 2018-12-27 09:49 | disposition home or self-care (01) ==
LOC: ER 07:14
DX: G44.209 Tension-type headache, unspecified, not intractable (principal); R03.0 Elevated blood-pressure reading, without diagnosis of hypertension; E78.00 Pure hypercholesterolemia, unspecified; E11.9 Type 2 diabetes mellitus without complications; Z79.4 Long term (current) use of insulin
CPT/HCPCS: 96361; 96374; 96375; 99284; J2765; J7030

== ENCOUNTER 2019-06-04 17:46 | Emergency (ER) | payer OTHER ==
--- OUTSIDE RECORDS SUMMARY | 2019-06-04 17:49 | XMS REPORT | Clinical Summary ---
:1960 Author Organization [facility] Address [address] [place] [address] Care Team Providers Name Role Phone Terry [...] subcutaneously 018 (3 mL) InPn every morning. carvedilol (COREG) 25 Take 1 tablet (25 180 tablet 1 02/20/2 Active MG tablet mg total) by 019 mouth 2 (two) times daily with breakfast and dinner. isosorbide mononitrate Take 1 tablet (60 90 tablet 1 02/20/2 Active (IMDUR) 60 MG 24 hr mg total) by 019 tablet mouth daily. gabapentin (NEURONTIN) Take 1 capsule 90 capsule 0 02/20/2 Active 300 MG capsule (300 mg total) by 019 mouth 3 (three) times daily. atorvastatin (LIPITOR) Take 1 tablet (20 90 tablet 3 02/20/2 Active 20 MG tablet mg total) by 019 mouth every evening. glipiZIDE (GLUCOTROL Take 1 tablet (10 90 tablet 1 02/20/2 Active XL) 10 MG 24 hr tablet mg total) by 019 mouth daily. ENTRESTO 49-51 mg Tab Take 1 tablet by 0 05/18/2 Active mouth 2 (two) 019 times daily. torsemide (DEMADEX) 10 Take 10 mg by 2 Active MG tablet mouth daily. 019 spironolactone Take 25 mg by 3 Active (ALDACTONE) 25 MG mouth daily. 019 tablet promethazine Take 1 tablet (25 15 tablet 0 12/28/11/23/ Discontinued (PHENERGAN) 25 MG mg total) by 2017 tablet mouth every 6 (six) hours as needed for Nausea for up to 15 doses. insulin aspart Inject 10 Units 10 mL 0 06/06/ Discontinued (NOVOLOG) 100 unit/mL subcutaneously 3 2017 injection (three) times daily before meals. insulin glargine Inject 45 Units 10 mL 0 06/06/ Discontinued (LANTUS) 100 unit/mL subcutaneously 2 2017 injection (two) times daily Use as directed. atorvastatin (LIPITOR) Take 1 tablet (20 90 tablet 3 06/06/ Discontinued 20 MG tablet mg total) by 2017 mouth every evening. azithromycin Please give Z 6 tablet 0 06/06/ Discontinued (ZITHROMAX) 250 MG Pack. 2017 tablet mometasone (NASONEX) 2 sprays by Nasal 17 g 12 Discontinued 50 mcg/actuation nasal route daily. 2017 spray zolpidem (AMBIEN) 10 Take 1 tablet (10 30 tablet 0 06/06/ Discontinued mg tablet mg total) by 2017 mouth every night as needed for Insomnia. glipiZIDE (GLUCOTROL Take 1 tablet (10 90 tablet 2 06/06/ Discontinued XL) 10 MG 24 hr tablet mg total) by 2017 mouth daily. gabapentin (NEURONTIN) TAKE ONE CAPSULE 180 capsule 1 06/06/ Discontinued 100 MG capsule BY MOUTH THREE 2017 TIMES DAILY torsemide (DEMADEX) 10 TAKE 1 TABLET BY 60 tablet 0 06/06/ Discontinued MG tablet MOUTH ONCE DAILY 2017 IN THE EVENING carvedilol (COREG) 25 Take 1 tablet (25 180 tablet 1 06/06/ Discontinued MG tablet mg total) by 2017 mouth 2 (two) times daily with breakfast and dinner. isosorbide mononitrate TAKE 1 TABLET BY 90 tablet 0 04/08/2 06/06/ Discontinued (IMDUR) 60 MG 24 hr MOUTH ONCE DAILY 2017 tablet glipiZIDE (GLUCOTROL TAKE ONE TABLET 30 tablet 3 04/29/2 06/06/ Discontinued XL) 10 MG 24 hr tablet BY MOUTH ONCE 2017 DAILY valsartan (DIOVAN) 160 TAKE 1 TABLET BY 90 tablet 0 04/29/2 06/06/ Discontinued MG tablet MOUTH ONCE DAILY [...] Take 1 tablet (10 90 tablet 2 2 11/23/ Discontinued MG tablet mg total) by 2017 mouth every evening. insulin aspart U-100 Inject 10 Units 10 mL 0 09/16/ Discontinued (NOVOLOG) 100 unit/mL subcutaneously 3 2017 [...] (GLUCOPHAGE) Take 1 tablet 180 tablet 3 11/23/ Discontinued 1000 MG tablet (1,000 mg total) [...] Take 1 tablet (60 90 tablet 1 12/23/ Discontinued (IMDUR) 60 MG 24 hr mg [...] 12/23/ Discontinued MG tablet mouth daily. 2019 zolpidem (AMBIEN) 10 Take 1 tablet (10 30 tablet 0 02/20/ Discontinued mg tablet mg total) by 2018 mouth every night as needed for Insomnia. hydroCHLOROthiazide Take 1 tablet (25 90 tablet 0 12/23/2 02/20/ Discontinued (HYDRODIURIL) 25 MG mg total) by 2018 tablet mouth daily. carvedilol (COREG) 25 Take 1 tablet (25 180 tablet 1 12/23/2 02/20/ Discontinued MG tablet mg total) by 2018 mouth 2 (two) times daily with breakfast and dinner. valsartan (DIOVAN) 160 Take 1 tablet 90 tablet 0 12/23/2 02/20/ Discontinued MG tablet (160 mg total) by 2018 mouth daily. isosorbide mononitrate Take 1 tablet (60 90 tablet 1 12/23/2 02/20/ Discontinued (IMDUR) 60 MG 24 hr mg total) by 2018 tablet mouth daily. gabapentin (NEURONTIN) Take 1 capsule 90 capsule 0 12/23/2 02/20/ Discontinued 300 MG capsule (300 mg total) by 2018 mouth 3 (three) times daily. glipiZIDE (GLUCOTROL Take 1 tablet (10 30 tablet 3 12/23/2 02/20/ Discontinued XL) 10 MG 24 hr tablet mg total) by 2018 mouth daily. atorvastatin (LIPITOR) Take 1 tablet (20 90 tablet 3 12/23/2 02/20/ Discontinued 20 MG tablet mg total) by 2018 mouth every evening. amLODIPine (NORVASC) Take 1 tablet (10 90 tablet 0 12/28/2 02/20/ Discontinued 10 MG tablet mg total) by 2018 mouth daily. hydroCHLOROthiazide Take 1 tablet (25 90 tablet 0 02/20/2 05/03/ Discontinued (HYDRODIURIL) 25 MG mg total) by 2018 tablet mouth daily. valsartan (DIOVAN) 160 Take 1 tablet 90 tablet 0 02/20/2 05/01/ Discontinued MG tablet (160 mg total) by 2018 mouth daily. glipiZIDE (GLUCOTROL Take 1 tablet (10 30 tablet 3 02/20/2 02/20/ Discontinued XL) 10 MG 24 hr tablet mg total) by 2018 mouth daily. zolpidem (AMBIEN) 10 Take 1 tablet (10 60 tablet 0 02/20/2 04/21/ mg tablet mg total) by 2018 mouth every night as needed for Insomnia for up to 60 days. valsartan (DIOVAN) 320 Take 1 tablet 0 05/01/2 05/26/ Discontinued MG tablet (320 mg total) by 2018 mouth daily. azithromycin Please give Z 6 tablet 0 05/01/2 05/06/ (ZITHROMAX) 250 MG pack. 2018 tablet benzonatate (TESSALON) Take 1 capsule 20 capsule 0 2 05/08/ 100 MG capsule (100 mg total) by 019 2019 mouth 3 (three) times daily as needed for Cough for up to 7 days. Active Problems Problem Noted Date Chronic systolic congestive heart failure 01/10/2016 Ingrowing nail with infection 01/10/2016 Pancreatitis 12/06/2014 CHF (congestive heart failure) 07/05/2013 Chest pain 07/05/2013 HTN (hypertension) 07/05/2013 DM type 2 (diabetes mellitus, type 2) 07/05/2013 Encounters Date Type Specialty Care Team Description 05/26/2019 Orders Only Cardiology Sincere Monte MD 05/03/2019 Telephone Cardiology Sincere Monte MD 05/01/2019 Office Visit Cardiology Sincere Monte, Type 2 diabetes mellitus without complication, with long-term current use of insulin (HCC) ( Primary Dx); Essential hypertension with goal blood pressure less than 130/80; Obesity, unspecified obesity severity, unspecified obesity type; MARITZA (obstructive sleep apnea); Chronic systolic congestive heart failure (HCC) 03/02/2019 Orders Only Masood Ospina Pre-operative cardiovascular examination (Primary Dx); MD Robert Chronic systolic heart failure (HCC); Angina decubitus (HCC) 02/20/2019 Office Visit Cardiology Sincere Monte, Type 2 diabetes mellitus without complication, with long-term current use of insulin (HCC) ( Primary Dx); Type 2 diabetes mellitus with complication, unspecified whether natural gas inspector insulin use (HCC); Essential hypertension with goal blood pressure less than 130/80; Obesity, unspecified obesity severity, unspecified obesity type; MARITZA (obstructive sleep apnea) 02/20/2019 Refill Cardiology Sincere Monte MD 02/20/2019 Refill Cardiology Sincere Monte MD 01/27/2019 Telephone Cardiology Eleanor Miner RN 01/02/2019 Telephone Cardiology Eleanor Miner RN 12/29/2018 Telephone Cardiology Elenaor Miner RN 12/28/2018 Orders Only Sincere Mckeon MD 12/23/2018 Office Visit Cardiology Sincere Monte, Type 2 diabetes mellitus with complication, unspecified whether senior living insulin use (HCC) ( Primary Dx); Essential hypertension with goal blood pressure less than 130/80; Obesity, unspecified obesity severity, unspecified obesity type; Chronic systolic congestive heart failure (HCC); MARITZA (obstructive sleep apnea) 12/19/2018 Telephone Cardiology Eleanor Miner, RN 11/23/2018 Office Visit Cardiology Sincere Monte, Type 2 diabetes mellitus without complication, with long-term current use of insulin (HCC) ( Primary Dx); Type 2 diabetes mellitus with complication, unspecified whether natural gas inspector insulin use (HCC) 11/23/2018 Orders Only Cardiology Sincere Monte, Type 2 diabetes mellitus with MD complication, unspecified whether natural gas inspector insulin use (HCC) (Primary Dx) 10/31/2018 Refill Cardiology Sincere Monte MD 10/28/2018 Telephone Cardiology Eleanor Miner RN 10/26/2018 Refill Cardiology Sincere Monte MD 10/21/2018 Refill Cardiology Sincere Monte MD 10/17/2018 Refill Cardiology Sincere Monte MD 10/11/2018 Refill Cardiology Sincere Monte MD 09/19/2018 Telephone Cardiology Eleanor Miner RN 09/16/2018 Office Visit Cardiology Sincere Monte, Type 2 diabetes mellitus without complication, with long-term current use of insulin (HCC) ( Primary Dx); Essential hypertension with goal blood pressure less than 130/80; Obesity, unspecified obesity severity, unspecified obesity type; Chronic systolic congestive heart failure (HCC); MARITZA (obstructive sleep apnea) 09/15/2018 Abstract Cardiology Eleanor Miner RN 06/06/2018 Office Visit Cardiology Sincere Monte, Type 2 diabetes mellitus without complication, with long-term current use of insulin (HCC) ( Primary Dx); Essential hypertension with goal blood pressure less than 130/80; Obesity, unspecified obesity severity, unspecified obesity type; Chronic systolic congestive heart failure (HCC) 06/06/2018 Refill Cardiology Sincere Monte MD 06/03/2018 Refill Cardiology Sincere Monte MD after 06/03/2018 Immunizations Name Dates Previously Given Next Due [...] Vital Sign Reading Time Taken Blood Pressure 163/72 05/01/2019 10:34 AM CDT Pulse 48 05/01/2019 10:34 AM CDT Temperature 36.3 C (97.3 F) 05/01/2019 10:34 AM CDT Respiratory Rate 14 05/01/2019 10:34 AM CDT Oxygen Saturation 98% 05/01/2019 10:34 AM CDT Inhaled Oxygen Concentration - - Weight 105.7 kg (233 lb) 05/01/2019 10:34 AM CDT Height 165.1 cm (5' 5") 05/01/2019 10:34 AM CDT Body Mass Index 38.77 05/01/2019 10:34 AM CDT Plan of Treatment Not on file Procedures Procedure Name Priority Date/Time Associated Diagnosis Comments CBC W/PLT COUNT & Routine 03/02/2019 1:18 Pre-operative Results for this AUTO DIFFERENTIAL PM CDT cardiovascular procedure are in examination the results Chronic systolic heart section. failure (HCC) Angina decubitus (HCC) CBC W/PLT COUNT & Routine 03/02/2019 1:18 Pre-operative Results for this AUTO DIFFERENTIAL PM CDT cardiovascular procedure are in examination the results Chronic systolic heart section. failure (HCC) Angina decubitus (HCC) BASIC METABOLIC PANEL Routine 03/02/2019 1:18 Pre-operative Results for this (7) PM CDT cardiovascular procedure are in examination the results Chronic systolic heart section. failure (HCC) Angina decubitus (HCC) CBC W/PLT COUNT & STAT 02/20/2019 10:46 Type 2 diabetes Results for this AUTO DIFFERENTIAL AM CDT mellitus without procedure are in complication, with the results long-term current use section. of insulin (HCC) LIPID PANEL STAT 02/20/2019 10:46 Type 2 diabetes Results for this AM CDT mellitus without procedure are in complication, with the results long-term current use section. of insulin ([facility]) COMPREHENSIVE STAT 02/20/2019 10:46 Type 2 diabetes Results for this METABOLIC PANEL AM CDT mellitus without procedure are in complication, with the results long-term current use section. of insulin ([facility]) CBC W/PLT COUNT & STAT 02/20/2019 10:46 Type 2 diabetes Results for this AUTO DIFFERENTIAL AM CDT mellitus without procedure are in complication, with the results long-term current use section. of insulin ([facility]) HEMOGLOBIN A1C Routine 02/20/2019 10:46 Type 2 diabetes Results for this AM CDT mellitus without procedure are in complication, with the results long-term current use section. of insulin ([facility]) TSH/FREE T4 IF Routine 02/20/2019 10:46 Type 2 diabetes Results for this INDICATED AM CDT mellitus without procedure are in complication, with the results long-term current use section. of insulin ([facility]) HEMOGLOBIN A1C STAT 11/23/2018 9:50 Type 2 diabetes Results for this AM ENDOSCOPY REGISTERED NURSE mellitus with procedure are in complication, the results unspecified whether section. natural gas inspector insulin use ([facility]) COMPREHENSIVE STAT 06/06/2018 11:29 Type 2 diabetes Results for this METABOLIC PANEL AM CDT mellitus without procedure are in complication, with the results long-term current use section. of insulin ([facility]) LIPID PANEL STAT 06/06/2018 11:29 Type 2 diabetes Results for this AM CDT mellitus without procedure are in complication, with the results long-term current use section. of insulin ([facility]) HEMOGLOBIN A1C Routine 06/06/2018 11:29 Type 2 diabetes Results for this AM CDT mellitus without procedure are in complication, with the results long-term current use section. of insulin ([facility]) TSH/FREE T4 IF Routine 06/06/2018 11:29 Type 2 diabetes Results for this INDICATED AM CDT mellitus without procedure are in complication, with the results long-term current use section. of insulin ([facility]) after 06/03/2018 Results CBC with platelet count + automated diff (03/02/2019 1:18 PM CDT)Only the most recent of2 resultswithin the time period is included. WBC 10.1 3.5 - 10.5 K/L [facility] RBC 3.86 (L) 3.93 - 5.22 M/L [facility] Hemoglobin 11.7 11.2 - 15.7 GM/DL [facility] Hematocrit 36.0 34.1 - 44.9 % [facility] MCV 93.3 79.4 - 94.8 fL [facility] MCH 30.3 25.6 - 32.2 pg [facility] MCHC 32.5 32.2 - 35.5 GM/DL [facility] RDW 12.8 11.7 - 14.4 % [facility] Platelets 235 150 - 450 K/CU MM [facility] MPV 10.7 9.4 - 12.3 fL [facility] nRBC 0 0 - 0 /100 WBC [facility] % Neutros 61 % [facility] % Lymphs 27 % [facility] % Monos 8 % [facility] % Eos 3 % [facility] % Baso 1 % [facility] # Neutros 6.17 (H) 1.56 - 6.13 K/L [facility] # Lymphs 2.71 1.18 - 3.74 K/L [facility] # Monos 0.82 (H) 0.24 - 0.36 K/L [facility] # Eos 0.31 0.04 - 0.36 K/L [facility] # Baso 0.05 0.01 - 0.08 K/L [facility] Immature Granulocytes-Relative 0 0 - 1 % [facility] Specimen Blood Performing Organization Address City/State/Zipcode Phone Number [address] [address] CENTER Basic Metabolic Panel (03/02/2019 1:18 PM CDT) Sodium 138 136 - 145 meq/L [facility] Potassium 4.7 3.5 - 5.1 meq/L [facility] Chloride 106 98 - 107 meq/L [facility] CO2 24 22 - 29 meq/L [facility] BUN 35 (H) 7 - 21 mg/dL [facility] Creatinine 1.44 (H) 0.57 - 1.25 mg/dL [facility] Glucose 146 (H) 70 - 105 mg/dL [facility] Calcium 9.3 8.4 - 10.2 mg/dL [facility] EGFR 37Comment: ESTIMATED GFR IS mL/min/1.73 sq m [facility] NOT ACCURATE [facility] CLEARANCE IN PREDICTING GLOMERULAR FILTRATION RATE. ESTIMATED GFR IS NOT APPLICABLE FOR DIALYSIS PATIENTS. Specimen Blood Performing Organization Address City/[facility]/Zipcode Phone Number [address] [address] [place] TSH/Free T4 If Indicated (02/20/2019 10:46 AM CDT)Only the most recent of2 resultswithin the time period is included. TSH 2.71 0.35 - 4.94 uIU/mL [facility] Specimen Blood Performing Organization Address City/State/Zipcode Phone Number [address] [phone] CENTER Hemoglobin A1c (02/20/2019 10:46 AM CDT)Only the most recent of3 resultswithin the time period is included. Hemoglobin A1C 7.9 (H) 4.3 - 6.1 % [facility] Specimen Blood Performing Organization Address City/State/Zipcode Phone Number [facility] [address] [place] [address] [phone] [place] Lipid panel (02/20/2019 10:46 AM CDT)Only the most recent of2 resultswithin the time period is included. Triglycerides 158 mg/dL [facility] Cholesterol 108 mg/dL [facility] HDL 27 mg/dL [facility] LDL Calculated 49 mg/dL [facility] Specimen Blood Narrative Performed At Triglyceride Reference Range: [facility] Low Risk <150 [id number] High Risk 200-499 Very High Risk>=500 Cholesterol Reference Range: Low Risk <200 [id number] High Risk>240 HDL Cholesterol Reference Range: Low Risk >=60 High Risk <40 LDL Cholesterol Reference Range: Optimal<100 Near [id number] Very High >=190 Performing Organization Address City/State/[facility] Phone Number [facility] [address] [place] [address] [place] Comprehensive metabolic panel (02/20/2019 10:46 AM CDT)Only the most recent of2 resultswithin the time period is included. Protein, Total 7.2 6.0 - 8.3 gm/dL [facility] Albumin 3.9 3.5 - 5.0 g/dL [facility] Alkaline Phosphatase 113 40 - 150 U/L [facility] Total Bilirubin 0.4 0.2 - 1.2 mg/dL [facility] Sodium 135 (L) 136 - 145 meq/L [facility] Potassium 4.4 3.5 - 5.1 meq/L [facility] Chloride 102 98 - 107 meq/L [facility] CO2 24 22 - 29 meq/L [facility] BUN 51 (H) 7 - 21 mg/dL [facility] Creatinine 1.30 (H) 0.57 - 1.25 mg/dL [facility] Glucose 247 (H) 70 - 105 mg/dL [facility] Calcium 9.9 8.4 - 10.2 mg/dL [facility] AST 15 5 - 34 U/L [facility] ALT 24 6 - 55 U/L [facility] EGFR 42Comment: ESTIMATED GFR mL/min/1.73 sq m [facility] IS NOT ACCURATE [facility] CREATININE CLEARANCE IN PREDICTING GLOMERULAR FILTRATION RATE. ESTIMATED GFR IS NOT APPLICABLE FOR DIALYSIS PATIENTS. Specimen Blood Performing Organization Address City/State/Zipcode Phone Number [facility] [address] [place], [place] [phone] CENTER after 06/03/2018 Insurance Payer Benefit Plan / Group Subscriber ID Type Phone Address MEDICARE MEDICARE A B xxxxxxxxxxx Medicare Advance Directives For more information, please contact:[facility] [place], [place] [phone] Code Status Date Activated Date Inactivated Comments Full Code 12/06/2014 8:09 AM 12/11/2014 5:51 PM This code status was determined by: Patient Code ONE 07/05/2013 10:30 AM 07/07/2013 6:37 PM All possible means of support, including: cardiac massage, mechanical ventilation, and defibrillation will be used to support life.
--- OUTSIDE RECORDS SUMMARY | 2019-06-04 17:50 | XMS REPORT ---
:1960 [facility] Address [address] [place] [address] Care Team Providers Name Role Phone MARYSOLMOUSTAPHA POWELL GUSTAVO Unavailable Unavailable RADHA WADE Unavailable Unavailable ELSA AVITIA Unavailable Unavailable Problems This patient has no known problems. Allergies, Adverse Reactions, Alerts This patient has no known allergies or adverse reactions. Medications This patient has no known medications. Results Test Description Test Time Test Comments Text Results Atomic Results Result Comments BASIC METABOLIC PANEL 2019-03-02 13:57:00 Test Item Value Reference Range Comments SODIUM (BEAKER) (test 138 meq/L 136-145 yigd=530) POTASSIUM (BEAKER) (test 4.7 meq/L 3.5-5.1 tctt=270) CHLORIDE (BEAKER) (test 106 meq/L 98-107 whko=022) CO2 (BEAKER) (test xkau=437) 24 meq/L 22-29 BLOOD UREA NITROGEN (BEAKER) 35 mg/dL 7-21 (test mzrh=794) CREATININE (BEAKER) (test 1.44 mg/dL 0.57-1.25 dgah=608) GLUCOSE RANDOM (BEAKER) 146 mg/dL 70-105 (test fjng=617) CALCIUM (BEAKER) (test 9.3 mg/dL 8.4-10.2 hdhh=369) EGFR (BEAKER) (test 37 mL/min/1.73 sq m ESTIMATED GFR IS NOT rtje=4480) ACCURATE CREATININE CLEARANCE IN PREDICTING GLOMERULAR FILTRATION RATE. ESTIMATED GFR IS NOT APPLICABLE FOR DIALYSIS PATIENTS. CBC W/PLT COUNT & AUTO [id number] 13:35:00 Test Item Value Reference Range Comments WHITE BLOOD CELL COUNT (BEAKER) (test innf=254) 10.1 K/ L 3.5-10.5 RED BLOOD CELL COUNT (BEAKER) (test uycr=795) 3.86 M/ L 3.93-5.22 HEMOGLOBIN (BEAKER) (test soca=905) 11.7 GM/DL 11.2-15.7 HEMATOCRIT (BEAKER) (test oygp=246) 36.0 % 34.1-44.9 MEAN CORPUSCULAR VOLUME (BEAKER) (test whic=845) 93.3 fL 79.4-94.8 MEAN CORPUSCULAR HEMOGLOBIN (BEAKER) (test 30.3 pg 25.6-32.2 trvf=168) MEAN CORPUSCULAR HEMOGLOBIN CONC (BEAKER) (test 32.5 GM/DL 32.2-35.5 rfca=684) RED CELL DISTRIBUTION WIDTH (BEAKER) (test 12.8 % 11.7-14.4 tpik=918) PLATELET COUNT (BEAKER) (test wzak=196) 235 K/CU MM 150-450 MEAN PLATELET VOLUME (BEAKER) (test ixzz=036) 10.7 fL 9.4-12.3 NUCLEATED RED BLOOD CELLS (BEAKER) (test 0 /100 WBC 0-0 qgyy=104) NEUTROPHILS RELATIVE PERCENT (BEAKER) (test 61 % pygf=213) LYMPHOCYTES RELATIVE PERCENT (BEAKER) (test 27 % vhjz=568) MONOCYTES RELATIVE PERCENT (BEAKER) (test 8 % pyfu=057) EOSINOPHILS RELATIVE PERCENT (BEAKER) (test 3 % plgu=278) BASOPHILS RELATIVE PERCENT (BEAKER) (test 1 % ruyd=059) NEUTROPHILS ABSOLUTE COUNT (BEAKER) (test 6.17 K/ L 1.56-6.13 qncd=253) LYMPHOCYTES ABSOLUTE COUNT (BEAKER) (test 2.71 K/ L 1.18-3.74 kvkq=893) MONOCYTES ABSOLUTE COUNT (BEAKER) (test 0.82 K/ L 0.24-0.36 mfzm=991) EOSINOPHILS ABSOLUTE COUNT (BEAKER) (test 0.31 K/ L 0.04-0.36 sdcw=417) BASOPHILS ABSOLUTE COUNT (BEAKER) (test 0.05 K/ L 0.01-0.08 ogie=566) IMMATURE GRANULOCYTES-RELATIVE PERCENT (BEAKER) 0 % 0-1 (test arxx=9710) HEMOGLOBIN [id number] 13:45:00 Test Item Value Reference Range Comments HEMOGLOBIN A1C (BEAKER) (test fzpr=757) 7.9 % 4.3-6.1 TSH/FREE T4 IF [id number] 12:54:00 Test Item Value Reference Range Comments THYROID STIMULATING HORMONE (BEAKER) (test 2.71 uIU/mL 0.35-4.94 rclb=566) LIPID [id number] 11:16:00 Test Item Value Reference Range Comments TRIGLYCERIDES (BEAKER) (test jlpj=188) 158 mg/dL CHOLESTEROL (BEAKER) (test obrg=316) 108 mg/dL HDL CHOLESTEROL (BEAKER) (test djum=818) 27 mg/dL LDL CHOLESTEROL CALCULATED (BEAKER) (test 49 mg/dL lpta=951) Triglyceride Reference Range: Low Risk <150 Borderline 150- 199 High Risk 200-499 Very High Risk >=500Cholesterol Reference Range: Low Risk <200 Borderline 200-239 High Risk > 240HDL Cholesterol Reference Range: Low Risk >=60 High Risk <40LDL Cholesterol Reference Range: Optimal <100 Near Optimal 100-129 Borderline 130-159 High 160-189 Very High >=190COMPREHENSIVE METABOLIC [id number] 11:16:00 Test Item Value Reference Range Comments TOTAL PROTEIN (BEAKER) 7.2 gm/dL 6.0-8.3 (test ulcu=070) ALBUMIN (BEAKER) (test 3.9 g/dL 3.5-5.0 lqbg=0368) ALKALINE PHOSPHATASE 113 U/L 40-150 (BEAKER) (test jmor=407) BILIRUBIN TOTAL (BEAKER) 0.4 mg/dL 0.2-1.2 (test ankh=355) SODIUM (BEAKER) (test 135 meq/L 136-145 oqsn=300) POTASSIUM (BEAKER) (test 4.4 meq/L 3.5-5.1 jpbt=178) CHLORIDE (BEAKER) (test 102 meq/L 98-107 mpep=368) CO2 (BEAKER) (test 24 meq/L 22-29 awzh=533) BLOOD UREA NITROGEN 51 mg/dL 7-21 (BEAKER) (test dngv=512) CREATININE (BEAKER) (test 1.30 mg/dL 0.57-1.25 fidt=730) GLUCOSE RANDOM (BEAKER) 247 mg/dL 70-105 (test uwyk=718) CALCIUM (BEAKER) (test 9.9 mg/dL 8.4-10.2 wyoz=925) AST (SGOT) (BEAKER) (test 15 U/L 5-34 ojyb=119) ALT (SGPT) (BEAKER) (test 24 U/L 6-55 uent=363) EGFR (BEAKER) (test 42 mL/min/1.73 sq m ESTIMATED GFR IS NOT tkgy=9327) ACCURATE CREATININE CLEARANCE IN PREDICTING GLOMERULAR FILTRATION RATE. ESTIMATED GFR IS NOT APPLICABLE FOR DIALYSIS PATIENTS. CBC W/PLT COUNT & AUTO [id number] 10:52:00 Test Item Value Reference Range Comments WHITE BLOOD CELL COUNT (BEAKER) (test qtph=644) 9.0 K/ L 3.5-10.5 RED BLOOD CELL COUNT (BEAKER) (test cjfr=941) 3.89 M/ L 3.93-5.22 HEMOGLOBIN (BEAKER) (test jakk=343) 12.0 GM/DL 11.2-15.7 HEMATOCRIT (BEAKER) (test smki=935) 35.5 % 34.1-44.9 MEAN CORPUSCULAR VOLUME (BEAKER) (test lsfa=682) 91.3 fL 79.4-94.8 MEAN CORPUSCULAR HEMOGLOBIN (BEAKER) (test 30.8 pg 25.6-32.2 fijy=844) MEAN CORPUSCULAR HEMOGLOBIN CONC (BEAKER) (test 33.8 GM/DL 32.2-35.5 pqzd=015) RED CELL DISTRIBUTION WIDTH (BEAKER) (test 12.4 % 11.7-14.4 rxfm=301) PLATELET COUNT (BEAKER) (test smfc=527) 221 K/CU MM 150-450 MEAN PLATELET VOLUME (BEAKER) (test vcil=519) 10.7 fL 9.4-12.3 NUCLEATED RED BLOOD CELLS (BEAKER) (test 0 /100 WBC 0-0 fjjv=093) NEUTROPHILS RELATIVE PERCENT (BEAKER) (test 59 % ccjg=017) LYMPHOCYTES RELATIVE PERCENT (BEAKER) (test 33 % nfvm=055) MONOCYTES RELATIVE PERCENT (BEAKER) (test 4 % bvav=104) EOSINOPHILS RELATIVE PERCENT (BEAKER) (test 2 % cfwf=426) BASOPHILS RELATIVE PERCENT (BEAKER) (test 0 % ocxd=650) NEUTROPHILS ABSOLUTE COUNT (BEAKER) (test 5.31 K/ L 1.56-6.13 deja=205) LYMPHOCYTES ABSOLUTE COUNT (BEAKER) (test 2.99 K/ L 1.18-3.74 siii=061) MONOCYTES ABSOLUTE COUNT (BEAKER) (test 0.39 K/ L 0.24-0.36 jyga=695) EOSINOPHILS ABSOLUTE COUNT (BEAKER) (test 0.21 K/ L 0.04-0.36 mjsn=184) BASOPHILS ABSOLUTE COUNT (BEAKER) (test 0.03 K/ L 0.01-0.08 fitj=411) IMMATURE GRANULOCYTES-RELATIVE PERCENT (BEAKER) 1 % 0-1 (test dirp=6771) HEMOGLOBIN [id number] 11:30:00 Test Item Value Reference Range Comments HEMOGLOBIN A1C (BEAKER) (test iiul=747) 8.5 % 4.3-6.1 HEMOGLOBIN [id number] 13:33:00 Test Item Value Reference Range Comments HEMOGLOBIN A1C (BEAKER) (test bcgj=932) 10.9 % 4.3-6.1 TSH/FREE T4 IF [id number] 12:27:00 Test Item Value Reference Range Comments THYROID STIMULATING HORMONE (BEAKER) (test 2.33 uIU/mL 0.35-4.94 pbnw=663) LIPID [id number] 12:10:00 Test Item Value Reference Range Comments TRIGLYCERIDES (BEAKER) (test xmfr=231) 116 mg/dL CHOLESTEROL (BEAKER) (test vajd=940) 130 mg/dL HDL CHOLESTEROL (BEAKER) (test jyty=431) 34 mg/dL LDL CHOLESTEROL CALCULATED (BEAKER) (test 73 mg/dL sgur=686) Triglyceride Reference Range: Low Risk <150 Borderline 150- 199 High Risk 200-499 Very High Risk >=500Cholesterol Reference Range: Low Risk <200 Borderline 200-239 High Risk > 240HDL Cholesterol Reference Range: Low Risk >=60 High Risk <40LDL Cholesterol Reference Range: Optimal <100 Near Optimal 100-129 Borderline 130-159 High 160-189 Very High >=190COMPREHENSIVE METABOLIC [id number] 12:10:00 Test Item Value Reference Range Comments TOTAL PROTEIN (BEAKER) 7.2 gm/dL 6.0-8.3 (test mfog=307) ALBUMIN (BEAKER) (test 3.8 g/dL 3.5-5.0 duck=7838) ALKALINE PHOSPHATASE 141 U/L 40-150 (BEAKER) (test fuzw=942) BILIRUBIN TOTAL (BEAKER) 0.7 mg/dL 0.2-1.2 (test lfqw=620) SODIUM (BEAKER) (test 133 meq/L 136-145 akmx=924) POTASSIUM (BEAKER) (test 4.1 meq/L 3.5-5.1 liwu=041) CHLORIDE (BEAKER) (test 100 meq/L 98-107 jrcw=252) CO2 (BEAKER) (test 27 meq/L 22-29 lkdk=166) BLOOD UREA NITROGEN 21 mg/dL 7-21 (BEAKER) (test eahd=561) CREATININE (BEAKER) (test 1.22 mg/dL 0.57-1.25 ofpa=082) GLUCOSE RANDOM (BEAKER) 293 mg/dL 70-105 (test jmcx=046) CALCIUM (BEAKER) (test 9.3 mg/dL 8.4-10.2 xtof=196) AST (SGOT) (BEAKER) (test 16 U/L 5-34 jhht=146) ALT (SGPT) (BEAKER) (test 16 U/L 6-55 nswy=463) EGFR (BEAKER) (test 45 mL/min/1.73 sq m ESTIMATED GFR IS NOT xudl=5357) ACCURATE CREATININE CLEARANCE IN PREDICTING GLOMERULAR FILTRATION RATE. ESTIMATED GFR IS NOT APPLICABLE FOR DIALYSIS PATIENTS. HEMOGLOBIN [id number] 13:44:00 Test Item Value Reference Range Comments HEMOGLOBIN A1C (BEAKER) (test rtky=919) 10.8 % 4.3-6.1 HEMOGLOBIN [id number] 09:58:00 Test Item Value Reference Range Comments HEMOGLOBIN A1C (BEAKER) (test zrqs=028) 8.3 % 4.3-6.1 TSH/FREE T4 IF [id number] 13:49:00 Test Item Value Reference Range Comments THYROID STIMULATING HORMONE (BEAKER) (test 1.94 uIU/mL 0.35-4.94 wxlr=302) HEMOGLOBIN [id number] 12:27:00 Test Item Value Reference Range Comments HEMOGLOBIN A1C (BEAKER) (test hymp=125) 11.3 % 4.3-6.1 LIPID [id number] 11:56:00 Test Item Value Reference Range Comments TRIGLYCERIDES (BEAKER) (test ccme=331) 162 mg/dL CHOLESTEROL (BEAKER) (test xlci=752) 136 mg/dL HDL CHOLESTEROL (BEAKER) (test xkic=036) 33 mg/dL LDL CHOLESTEROL CALCULATED (BEAKER) (test 71 mg/dL dtre=871) Triglyceride Reference Range: Low Risk <150 Borderline 150- 199 High Risk 200-499 Very High Risk >=500Cholesterol Reference Range: Low Risk <200 Borderline 200-239 High Risk > 240HDL Cholesterol Reference Range: Low Risk >=60 High Risk <40LDL Cholesterol Reference Range: Optimal <100 Near Optimal 100-129 Borderline 130-159 High 160-189 Very High >=190COMPREHENSIVE METABOLIC [id number] 11:56:00 Test Item Value Reference Range Comments TOTAL PROTEIN (BEAKER) 6.8 gm/dL 6.0-8.3 (test bvch=705) ALBUMIN (BEAKER) (test 3.6 g/dL 3.5-5.0 tgdv=0309) ALKALINE PHOSPHATASE 138 U/L 40-150 (BEAKER) (test ewnu=372) BILIRUBIN TOTAL (BEAKER) 0.5 mg/dL 0.2-1.2 (test tgkc=825) SODIUM (BEAKER) (test 135 meq/L 136-145 scqk=866) POTASSIUM (BEAKER) (test 4.5 meq/L 3.5-5.1 sfkp=922) CHLORIDE (BEAKER) (test 103 meq/L 98-107 qcyf=695) CO2 (BEAKER) (test 25 meq/L 22-29 vxri=824) BLOOD UREA NITROGEN 25 mg/dL 7-21 (BEAKER) (test aotj=055) CREATININE (BEAKER) (test 1.16 mg/dL 0.57-1.25 daba=431) GLUCOSE RANDOM (BEAKER) 341 mg/dL 70-105 (test qkfo=754) CALCIUM (BEAKER) (test 8.8 mg/dL 8.4-10.2 izek=195) AST (SGOT) (BEAKER) (test 15 U/L 5-34 kmxq=981) ALT (SGPT) (BEAKER) (test 15 U/L 6-55 suan=467) EGFR (BEAKER) (test 48 mL/min/1.73 sq m ESTIMATED GFR IS NOT gbds=4002) ACCURATE CREATININE CLEARANCE IN PREDICTING GLOMERULAR FILTRATION RATE. ESTIMATED GFR IS NOT APPLICABLE FOR DIALYSIS PATIENTS. [id number] 09:01:00 Test Item Value Reference Range Comments D-DIMER QUANTITATIVE (LetsmakeAKER) (test obuo=135) < MG/L FEU <0.50 Intended Use: The [...] within 95-100% range.CREATINE KINASE (CK), TOTAL AND [id number] 09:01:00 Test Item Value Reference Range Comments CREATINE KINASE TOTAL (LetsmakeAKER) (test anyf=694) 43 U/L 29-200 CREATINE KINASE-MB (BEAKER) (test ucbn=658) 0.7 ng/mL 0.0-6.6 CREATINE KINASE-MB INDEX (BEAKER) (test isxj=138) 1.6 % Effective 10/16/2014: CK-MB Reference Range ChangeNew: 0.0-6.6 Previous: 0.0- 4.9CK-MB Reference Range:<6.7 Normal6.7-10.0 Borderline>10.0 AbnormalTROPONIN [id number] 09:01:00 Test Item Value Reference Range Comments TROPONIN I (BEAKER) (test gedq=255) 0.02 ng/mL 0.00-0.03 Effective 10/16/2014: Reference Range [...] acute neurological disease, and persistent tachyarrhythmia.BASIC METABOLIC [id number] 08:53:00 Test Item Value Reference Range Comments SODIUM (BEAKER) (test 136 meq/L 136-145 yvwx=358) POTASSIUM (BEAKER) (test 4.1 meq/L 3.5-5.1 vsfo=238) CHLORIDE (BEAKER) (test 102 meq/L 98-107 lske=452) CO2 (BEAKER) (test 25 meq/L 22-29 fsov=643) BLOOD UREA NITROGEN 16 mg/dL 7-21 (BEAKER) (test ixke=669) CREATININE (BEAKER) (test 1.00 mg/dL 0.57-1.25 zang=914) GLUCOSE RANDOM (BEAKER) 186 mg/dL 70-105 (test lgzk=156) CALCIUM (BEAKER) (test 9.4 mg/dL 8.4-10.2 jzdx=582) EGFR (BEAKER) (test 57 mL/min/1.73 sq m ESTIMATED GFR IS NOT vtcg=2537) ACCURATE CREATININE CLEARANCE IN PREDICTING GLOMERULAR FILTRATION RATE. ESTIMATED GFR IS NOT APPLICABLE FOR DIALYSIS PATIENTS. CBC W/PLT COUNT & AUTO [id number] 08:30:00 Test Item Value Reference Range Comments WHITE BLOOD CELL COUNT (BEAKER) (test hkkn=301) 9.2 K/ L 4.0-10.0 RED BLOOD CELL COUNT (BEAKER) (test upbv=100) 4.74 M/ L 4.00-5.00 HEMOGLOBIN (BEAKER) (test kbbg=039) 14.5 GM/DL 12.0-15.0 HEMATOCRIT (BEAKER) (test fwkl=500) 43.7 % 36.0-45.0 MEAN CORPUSCULAR VOLUME (BEAKER) (test yvyr=154) 92.2 fL 82.0-99.0 MEAN CORPUSCULAR HEMOGLOBIN (BEAKER) (test 30.7 pg 27.0-33.0 tedg=971) MEAN CORPUSCULAR HEMOGLOBIN CONC (BEAKER) (test 33.3 GM/DL 32.0-36.0 jkvr=912) RED CELL DISTRIBUTION WIDTH (BEAKER) (test 12.0 % 10.3-14.2 gdye=682) PLATELET COUNT (BEAKER) (test xcwr=738) 247 K/CU MM 150-430 MEAN PLATELET VOLUME (BEAKER) (test bgec=375) 7.8 fL 6.5-10.5 NUCLEATED RED BLOOD CELLS (BEAKER) (test 0 /100 WBC 0-0 dykk=115) NEUTROPHILS RELATIVE PERCENT (BEAKER) (test 57 % mifk=325) LYMPHOCYTES RELATIVE PERCENT (BEAKER) (test 35 % ctwk=123) MONOCYTES RELATIVE PERCENT (BEAKER) (test 6 % pxnb=829) EOSINOPHILS RELATIVE PERCENT (BEAKER) (test 2 % mfro=308) BASOPHILS RELATIVE PERCENT (BEAKER) (test 0 % ucgd=180) NEUTROPHILS ABSOLUTE COUNT (BEAKER) (test 5.30 K/ L 1.80-8.00 axkf=113) LYMPHOCYTES ABSOLUTE COUNT (BEAKER) (test 3.21 K/ L 1.48-4.50 ngvo=354) MONOCYTES ABSOLUTE COUNT (BEAKER) (test 0.51 K/ L 0.00-1.30 qzaj=760) EOSINOPHILS ABSOLUTE COUNT (BEAKER) (test 0.19 K/ L 0.00-0.50 uzya=722) BASOPHILS ABSOLUTE COUNT (BEAKER) (test 0.03 K/ L 0.00-0.20 qscb=736) 0.00
[2019-06-04] MEDS ORDERED: NA CHLORIDE 0.9% 0 ML ONE (18:26)
[2019-06-04 18:31] LABS: Absolute Lymphocytes (CBC) 2.5 K/uL (0.7-4.9); Basophils % 0.5 % (0-1.3); Eosinophils % 2.5 % (0-4.4); Hematocrit 38.7 % (36.0-45.0); MPV 9.7 fL (7.6-11.3); Monocytes % 6.9 % (3.3-12.3)
[2019-06-04 18:51] LABS: ALT/SGPT 16 U/L (12-78); AST/SGOT 11 U/L (15-37); Albumin 3.6 g/dL (3.4-5.0); Alkaline Phosphatase 120 U/L (45-117); BUN Blood Urea Nitrogen 40 mg/dL (7-18); Bicarbonate 27 mmol/L (21-32); Bilirubin Direct 0.1 mg/dL (0-0.2); Bilirubin Total 0.4 mg/dL (0.2-1.0); Glucose Level 148 mg/dL (74-106); Magnesium 2.1 mg/dL (1.8-2.4); NT PRO-BNP 1282 pg/mL (<125); Potassium 4.8 mmol/L (3.5-5.1); Protein, Total 7.6 g/dL (6.4-8.2); Sodium Level 136 mmol/L (136-145); Troponin (Emerg Dept Use Only) < 0.02 ng/mL (0.0-0.045)
[2019-06-04] MEDS ORDERED: PROMETHAZINE 25 MG/ML VIAL ONE (19:26)
[2019-06-04] MEDS ORDERED: NA CHLORIDE 0.9% 1,000 ML ONE (19:26)
--- NOTE | 2019-06-04 19:53 | RAD REPORT ---
EXAM DESCRIPTION: RAD - Chest Single View - 06/04/2019 7:32 pm CLINICAL HISTORY: Abdominal pain COMPARISON: September 2017 TECHNIQUE: AP portable chest image was obtained 1929 hours . FINDINGS: Lungs are clear. Heart and vasculature are normal. No measurable pleural effusion and no p neumothorax. No acute bony abnormality seen. No acute aortic findings suspected. IMPRESSION: No acute cardiopulmonary process.
--- NOTE | 2019-06-04 19:53 | RAD REPORT ---
EXAM DESCRIPTION: CT - Stone Protocol - 06/04/2019 7:24 pm CLINICAL HISTORY: Abdominal pain, nausea, diarrhea COMPARISON: None. TECHNIQUE: Axial 5 mm thick images were obtained without oral or IV contrast. The kphif-dc-vlxr span s the entirety of the system including uppermost abdomen and lung bases. All CT scans are performed using dose optimization technique as appropriate and may include automated exposure control or mA/KV adjustment according to patient size. FINDINGS: No hydronephrosis is present and no obstructing ureteral calculi. No suspicious renal mass es. Isodense masses and pyelonephritis are not excluded on a stone protocol CT scan. No urinary bladd er suspicious finding. No significant adrenal finding. Patient has an enlarged lobulated multi fibroid uterus. Fibroids are partially calcified and measure up to 6 cm in size. No suspicion for an ovarian process. Imaged portions of the liver, spleen and pancreas show no suspicious findings on non-contrast imaging . Cholecystectomy clips are present. No biliary tree dilatation. No suspicious bowel findings. No appendicitis. No hernia, mass or bulky lymphadenopathy noted. No free air, free fluid or inflammatory stranding. No significant bony abnormality. IMPRESSION: Noncontrast CT abdomen and pelvis imaging shows no acute finding. Nonacute findings are detailed in the body of the report. Isodense masses and pyelonephritis are not excluded on noncontrast imaging. Overall exam sensitivity is diminished in the absence of contrast.
[2019-06-04 19:55] LABS: Urine Blood NEGATIVE (NEG); Urine Glucose NEGATIVE (NEG); Urine Protein TRACE (NEG); Urine Specific Gravity <1.005 (1.005-1.030); Urine pH 5.5 (5.0-7.0)
[2019-06-04 19:57] LABS: Urine Bacteria <20 /HPF (<20); Urine Culture Reflex Order NOT NEEDED; Urine RBC NONE SEEN /HPF (NONE SEEN)
[2019-06-04 20:02] LABS: Protime INR 0.95
--- NOTE | 2019-06-04 21:40 | ER ---
Nurse's Notes [facility] Name: Terese Alaniz Age: 59 yrs Sex: Female : 1960 Arrival Date: 06/04/2019 Time: 17:49 Bed 5 Private MD: Diagnosis: Hypoglycemia, unspecified;Diarrhea, unspecified;Volume depletion Presentation: 06/04 17:55 Presenting complaint: Patient states: I have been having nausea, diarrhea, and low la1 blood sugar since yesterday, BGL in the 60s to 80s, feeling lightheaded. Transition of care: patient was not received from another setting of care. Onset of symptoms was June 04, 2019. Risk Assessment: Do you want to hurt yourself or someone else? Patient reports no desire to harm self or others. Initial Sepsis Screen: Does the patient meet any 2 criteria? No. Patient's initial sepsis screen is negative. Does the patient have a suspected source of infection? No. Patient's initial sepsis screen is negative. Care prior to arrival: None. 17:55 Method Of Arrival: Ambulatory la1 17:55 Acuity: VISHNU 2 la1 Historical: - Allergies: 17:56 No Known Allergies; la1 - PMHx: 17:56 Diabetes - IDDM; CHF; High Cholesterol; Hypertension; la1 - Immunization history:: Adult Immunizations up to date. - Social history:: Smoking status: Patient/guardian denies using tobacco. - Ebola Screening: : No symptoms or risks identified at this time. Screenin:25 Abuse screen: Denies threats or abuse. Denies injuries from another. Nutritional aj screening: No deficits noted. Tuberculosis screening: No symptoms or risk factors identified. Fall Risk None identified. Assessment: 18:25 General: Appears in no apparent distress. comfortable, obese, Behavior is calm, aj cooperative, appropriate for age. Pain: Denies pain. Neuro: Level of Consciousness is awake, alert, obeys commands, Oriented to person, place, time, situation, Appropriate for age. Respiratory: Airway is patent Respiratory effort is even, unlabored, Respiratory pattern is regular, symmetrical. GI: Abdomen is obese. GI: Reports diarrhea. Derm: Skin is intact, is healthy with good turgor, Skin is pink, warm \\T\\ dry. normal. 19:24 Reassessment: Patient appears in no apparent distress at this time. Patient and/or ch family updated on plan of care and expected duration. Pain level reassessed. Patient is alert, oriented x 3, equal unlabored respirations, skin warm/dry/pink. pt c/o nausea, pt medicated per orders. no s/s of distress. provider reviews pt tele rhythm with me, pt rhythm remains unchanged during her stay. pt has pvc, uni and multi focal that cause some sindi. pt states "I have and irregular heart rhythm.". Pain: Denies pain. Neuro: No deficits noted. Cardiovascular: Heart tones S1 S2 present Capillary refill < 3 seconds in bilateral fingers Clubbing of nail beds is absent Patient's skin is warm and dry. Pulses are all present. Rhythm is irregular. Respiratory: Airway is patent Respiratory effort is even, unlabored, Respiratory pattern is regular, symmetrical, Breath sounds are clear bilaterally. GI: Abdomen is non-distended, obese, Bowel sounds present X 4 quads. Abd is soft and non tender X 4 quads. Reports diarrhea, nausea, upset stomach. : EENT: No signs and/or symptoms were reported regarding the EENT system. Musculoskeletal: Circulation, motion, and sensation intact. 20:37 Reassessment: Patient appears in no apparent distress at this time. Patient and/or ch family updated on plan of care and expected duration. Pain level reassessed. Patient is alert, oriented x 3, equal unlabored respirations, skin warm/dry/pink. Patient states feeling better. Patient states symptoms have improved. Vital Signs: 17:56 BP 138 / 77; Pulse 48; Resp 16; Temp 97.2; Pulse Ox 98% on R/A; Weight 93.44 kg; Height la1 5 ft. 4 in. (162.56 cm); 18:28 BP 154 / 71; Pulse 76; Resp 19; Pulse Ox 96% on R/A; aj 19:15 BP 140 / 75; Pulse 64; Resp 15; Pulse Ox 98% on R/A; lp1 20:00 BP 122 / 54; Pulse 77; Resp 18; Pulse Ox 99% on R/A; lp1 20:30 BP 150 / 76; Pulse 75; Resp 14; Pulse Ox 98% on R/A; Pain 0/10; lp1 17:56 Body Mass Index 35.36 (93.44 kg, 162.56 cm) la1 ED Course: 17:49 Patient arrived in ED. mr 17:56 Triage completed. la1 17:57 Arm band placed on left wrist. la1 18:01 Apolonia Navarro F[facility]-C [facility]. snw 18:01 Tahira De Los Santos MD is Attending Physician. snw 18:09 EKG done, by ED staff, reviewed by Apolonia GAMEZ. dh3 18:10 Marily England, RN is Primary Nurse. aj 18:25 Patient has correct armband on for positive identification. aj 18:25 Inserted saline lock: 20 gauge in right antecubital area, using aseptic technique. aj Blood collected. 19:25 CT Stone Protocol In Process Unspecified. EDMS 19:26 CT completed. Patient tolerated procedure well. Patient moved to radiology. mw3 19:31 Chest Single View XRAY In Process Unspecified. EDMS 19:40 Urine collected: clean catch specimen, clear, helen colored. jp3 19:55 Urine Culture Sent. jp3 19:55 Urine Culture Sent. jp3 19:55 Urine Microscopic Only Sent. jp3 22:08 Primary Nurse role handed off by Marily England, RN 22:08 Ann Marie Epps, RN is Primary Nurse. Administered Medications: 18:27 Drug: NS 0.9% 1000 ml Route: IV; Rate: 50 ml/hr; Site: left antecubital; aj 19:45 Follow up: Rate change 75 ml/hr lp1 19:18 Drug: Phenergan 6.25 mg Route: IVP; Site: right antecubital; lp1 20:39 Follow up: Response: Nausea is decreased lp1 19:45 Drug: NS 0.9% 1000 ml Route: IV; Rate: 75 ml/hr; Site: right antecubital; lp1 21:08 Drug: NS 0.9% 500 ml Volume: 500 ml; Route: IV; Rate: 1 bolus; Site: right antecubital; lp1 21:49 Follow up: IV Status: Completed infusion; IV Intake: 500ml lp1 Point of Care Testing: Blood Glucose: 18:09 Blood Glucose: 158 mg/dL; la1 20:46 Blood Glucose: 139 mg/dL; lp1 Ranges: Intake: 21:49 IV: 500ml; Total: 500ml. lp1 Outcome: 21:39 Discharge ordered by MD. batres 22:09 Patient left the ED. Signatures: Dispatcher [employer] EDMS Ann Marie Epps, RN Marily Blank ch, RN RN aj Therrien, Shelly, GREEN END WORKER-C [facility] Tish Tellez mr CaiYi RN RN lp1 Link Jackson RN RN sd1 Brandy Crowder 3 Cathy Burk 3 Hugo Duffy 3
--- NOTE | 2019-06-04 21:41 | EDPHYS ---
Physician Documentation [facility] Name: Terese Alaniz Age: 59 yrs Sex: Female : 1960 Arrival Date: 06/04/2019 Time: 17:49 Bed 5 Private MD: ED Physician Tahira De Los Santos HPI: 06/04 18:39 This 59 yrs old Female presents to ER via Ambulatory with complaints of Low snw Blood Sugar, Diarrhea. 18:39 The patient or guardian reports hypoglycemia, that was potentially precipitated by snw Nausea and diarrhea. Onset: The symptoms/episode began/occurred suddenly, last night, x 3 episodes. Associated signs and symptoms: Pertinent positives: diarrhea, nausea. Current symptoms: In the emergency department the patient's symptoms have improved. sees PCP and Cardiology in [place] at [facility]. Historical: - Allergies: 17:56 No Known Allergies; la1 - PMHx: 17:56 Diabetes - IDDM; CHF; High Cholesterol; Hypertension; la1 - Immunization history:: Adult Immunizations up to date. - Social history:: Smoking status: Patient/guardian denies using tobacco. - Ebola Screening: : No symptoms or risks identified at this time. ROS: 18:38 Constitutional: Negative for fever, chills, and weight loss, Eyes: Negative for injury, snw pain, redness, and discharge, ENT: Negative for injury, pain, and discharge, Neck: Negative for injury, pain, and swelling, Cardiovascular: Negative for chest pain, palpitations, and edema, Respiratory: Negative for shortness of breath, cough, wheezing, and pleuritic chest pain, Back: Negative for injury and pain, : Negative for injury, bleeding, discharge, and swelling, MS/Extremity: Negative for injury and deformity, Skin: Negative for injury, rash, and discoloration, Neuro: Negative for headache, weakness, numbness, tingling, and seizure. 18:38 Abdomen/GI: Positive for nausea, diarrhea, Negative for vomiting, hematemesis, black/tarry stool, rectal pain, rectal bleeding. Exam: 18:37 Constitutional: This is a well developed, well nourished patient who is awake, alert, snw and in no acute distress. Head/Face: Normocephalic, atraumatic. Eyes: Pupils equal round and reactive to light, extra-ocular motions intact. Lids and lashes normal. Conjunctiva and sclera are non-icteric and not injected. Cornea within normal limits. Periorbital areas with no swelling, redness, or edema. ENT: Nares patent. No nasal discharge, no septal abnormalities noted. Tympanic membranes are normal and external auditory canals are clear. Oropharynx with no redness, swelling, or masses, exudates, or evidence of obstruction, uvula midline. Mucous membranes moist. Neck: Trachea midline, no thyromegaly or masses palpated, and no cervical lymphadenopathy. Supple, full range of motion without nuchal rigidity, or vertebral point tenderness. No Meningismus. Chest/axilla: Normal chest wall appearance and motion. Nontender with no deformity. No lesions are appreciated. Cardiovascular: Regular rate and rhythm with a normal S1 and S2. No gallops, murmurs, or rubs. Normal PMI, no JVD. No pulse deficits. Respiratory: Lungs have equal breath sounds bilaterally, clear to auscultation and percussion. No rales, rhonchi or wheezes noted. No increased work of breathing, no retractions or nasal flaring. Abdomen/GI: Soft, non-tender, with normal bowel sounds. No distension or tympany. No guarding or rebound. No evidence of tenderness throughout. describes nausea Back: No spinal tenderness. No costovertebral tenderness. Full range of motion. Skin: Warm, dry with normal turgor. Normal color with no rashes, no lesions, and no evidence of cellulitis. MS/ Extremity: Pulses equal, no cyanosis. Neurovascular intact. Full, normal range of motion. Neuro: Awake and alert, GCS 15, oriented to person, place, time, and situation. Cranial nerves II-XII grossly intact. Motor strength 5/5 in all extremities. Sensory grossly intact. Cerebellar exam normal. Normal gait. Psych: Awake, alert, with orientation to person, place and time. Behavior, mood, and affect are within normal limits. Vital Signs: 17:56 BP 138 / 77; Pulse 48; Resp 16; Temp 97.2; Pulse Ox 98% on R/A; Weight 93.44 kg; Height la1 5 ft. 4 in. (162.56 cm); 18:28 BP 154 / 71; Pulse 76; Resp 19; Pulse Ox 96% on R/A; aj 19:15 BP 140 / 75; Pulse 64; Resp 15; Pulse Ox 98% on R/A; lp1 20:00 BP 122 / 54; Pulse 77; Resp 18; Pulse Ox 99% on R/A; lp1 20:30 BP 150 / 76; Pulse 75; Resp 14; Pulse Ox 98% on R/A; Pain 0/10; lp1 17:56 Body Mass Index 35.36 (93.44 kg, 162.56 cm) la1 MDM: 18:01 Patient medically screened. snw 21:40 Data reviewed: vital signs, nurses notes. Data interpreted: Pulse oximetry: on room air snw is 98 %. Interpretation: normal. Counseling: I had a detailed discussion with the patient and/or guardian regarding: the historical points, exam findings, and any diagnostic results supporting the discharge/admit diagnosis, the presence of at least one elevated blood pressure reading (>120/80) during this emergency department visit, lab results, radiology results, the need for outpatient follow up, to return to the emergency department if symptoms worsen or persist or if there are any questions or concerns that arise at home. Special discussion: Based on the history and exam findings, there is no indication for further emergent testing or inpatient evaluation. I discussed with the patient/guardian the need to see the primary care provider for further evaluation of the symptoms. 21:43 Response to treatment: the patient's symptoms have markedly improved after treatment. snw 21:44 Special discussion: I have referred the patient to see his PCP for further evaluation snw of high blood pressure. 06/04 18:03 Order name: Chem 7; Complete Time: 19:02 snw 06/04 18:03 Order name: CBC with Diff; Complete Time: 18:36 snw 06/04 18:03 Order name: TSH; Complete Time: 19:02 snw 06/04 18:03 Order name: Blood Culture Adult (2) snw 06/04 18:13 Order name: PT-INR; Complete Time: 20:03 snw 06/04 18:16 Order name: Glucose, Ancillary Testing; Complete Time: 18:19 EDMS 06/04 18:29 Order name: Liver (Hepatic) Function; Complete Time: 19:02 EDMS 06/04 18:29 Order name: Troponin (Emerg Dept Use Only); Complete Time: 19:02 EDMS 06/04 18:29 Order name: NT PRO-BNP; Complete Time: 19:02 EDMS 06/04 18:29 Order name: Magnesium; Complete Time: 19:02 EDMS 06/04 18:02 Order name: EKG; Complete Time: 18:04 la1 06/04 18:02 Order name: EKG - Nurse/Tech; Complete Time: 18:09 la1 06/04 18:02 Order name: Blood Glucose Level; Complete Time: 18:09 nm1 06/04 18:03 Order name: FSBS; Complete Time: 18:09 snw 06/04 18:13 Order name: Cardiac monitoring; Complete Time: 18:14 snw 06/04 18:13 Order name: IV Saline Lock; Complete Time: 18:27 snw 06/04 19:03 Order name: Chest Single View XRAY; Complete Time: 20:01 snw 06/04 19:03 Order name: Urine Culture [facility] 06/04 19:03 Order name: Urine Microscopic Only; Complete Time: 20:01 snw 06/04 19:04 Order name: Urine Culture [facility] 06/04 19:05 Order name: CT Stone Protocol; Complete Time: 20:01 snw 06/04 19:49 Order name: Urine Dipstick--Ancillary (enter results); Complete Time: 20:01 ar5 06/04 18:13 Order name: Labs collected and sent; Complete Time: 18:27 snw 06/04 18:13 Order name: O2 Per Protocol; Complete Time: 18:27 snw 06/04 18:13 Order name: O2 Sat Monitoring; Complete Time: 18:27 snw 06/04 19:03 Order name: Urine Dipstick-Ancillary (obtain specimen); Complete Time: 19:55 snw Administered Medications: 18:27 Drug: NS 0.9% 1000 ml Route: IV; Rate: 50 ml/hr; Site: left antecubital; aj 19:45 Follow up: Rate change 75 ml/hr lp1 19:18 Drug: Phenergan 6.25 mg Route: IVP; Site: right antecubital; lp1 20:39 Follow up: Response: Nausea is decreased lp1 19:45 Drug: NS 0.9% 1000 ml Route: IV; Rate: 75 ml/hr; Site: right antecubital; lp1 21:08 Drug: NS 0.9% 500 ml Volume: 500 ml; Route: IV; Rate: 1 bolus; Site: right antecubital; lp1 21:49 Follow up: IV Status: Completed infusion; IV Intake: 500ml lp1 Point of Care Testing: Blood Glucose: 18:09 Blood Glucose: 158 mg/dL; la1 20:46 Blood Glucose: 139 mg/dL; lp1 Ranges: Critical Glucose Levels:Adult <50 mg/dl or >400 mg/dl <40 mg/dl or >180 mg/dl Disposition: 06/04/19 21:39 Discharged to Home. Impression: Hypoglycemia, unspecified, Diarrhea, unspecified, Volume depletion. - Condition is Stable. - Discharge Instructions: Food Choices to Help Relieve Diarrhea, Adult, Diarrhea, Adult, Hypoglycemia, Blood Glucose Monitoring, Adult, Rehydration, Adult. - Medication Reconciliation Form, Thank You Letter, Antibiotic Education, Prescription Opioid Use form. - Follow up: Private Physician; When: 1 - 2 days; Reason: Recheck today's complaints, Continuance of care, Re-evaluation by your physician. Follow up: Emergency Department; When: As needed; Reason: Worsening of condition. Addendum: 06/08/2019 02:13 Co-signature as Attending Physician, Tahira De Los Santos MD. m a2 Signatures: Dispatcher [employer] EDAnn Marie Egan RN RN ch Myers, Amanda RN Apolonia Shabazz, INTEGRATION ANALYST-C INTEGRATION ANALYST-Csnw Yi Cai RN RN [facility] Link Jackson RN RN [facility] Tahira De Los Santos MD MD ia2 Corrections: (The following items were deleted from the chart) 06/04 18:29 18:22 PROBNP+C.LAB.BRZ ordered. EDLA EDMS 18:29 18:22 TROPONIN (EMERG DEPT USE ONLY)+C.LAB.BRZ ordered. EDLA EDMS 18:29 18:22 MAGNESIUM+C.LAB.BRZ ordered. EDLA EDMS 18:29 18:22 HEPATIC FUNCTION+C.LAB.BRZ ordered. EDLA EDMS 22:09 21:39 06/04/2019 21:39 Discharged to Home. Impression: Hypoglycemia, unspecified; ch Diarrhea, unspecified; Volume depletion. Condition is Stable. Forms are Medication Reconciliation Form, Thank You Letter, Antibiotic Education, Prescription Opioid Use. Follow up: Private Physician; When: 1 - 2 days; Reason: Recheck today's complaints, Continuance of care, Re-evaluation by your physician. Follow up: Emergency Department; When: As needed; Reason: Worsening of condition. snw
--- NOTE | 2019-06-05 12:53 | EKG ---
Test Date: 2019-06-04 Test Time: 18:07:22 Fretted Instrument Inspector: BLANCA MEASUREMENT RESULTS: Intervals: Rate: 72 MO: 184 QRSD: 124 QT: 450 QTc: 492 [place]: P: 38 MO: 184 QRS: -52 T: 78 INTERPRETIVE STATEMENTS: Sinus rhythm with occasional premature ventricular complexes Left axis deviation Anteroseptal infarct, age undetermined Abnormal ECG Compared to ECG 10/03/2017 09:12:35 Ventricular premature complex(es) now present T-wave abnormality no longer present Possible ischemia no longer present Myocardial infarct finding still present Electronically Signed On 06-05-19 12:49:48 CDT by Demetrius Reyes
== END 2019-06-04 22:09 | disposition home or self-care (01) ==
LOC: ER 17:46
DX: E86.9 Volume depletion, unspecified (principal); R19.7 Diarrhea, unspecified; I10 Essential (primary) hypertension
CPT/HCPCS: 96361; 93005; 87040 ×2; 87088; 85025; 87086; 80048; 36415; 83735; 85610; 82962 ×2; 80076; 84443; 84484; 83880; 76377; 74176; 71045; 96374; 99284; J2550; J7030; 81003; 81015

== ENCOUNTER 2021-03-27 07:17 | Emergency (ER) | payer OTHER ==
--- OUTSIDE RECORDS SUMMARY | 2021-03-27 07:24 | XMS REPORT | Continuity of Care Document ---
:1960 Author Organization [facility] t Address [address] [place] [address] Care Team Providers Name Role Phone Terry Stapleton MD Primary Care Physician Sincere Wade MD Attending Clinician SINCERE WADE Attending Clinician Unavailable Pcp, Patient Does Not Have A Attending Clinician [phone] Cam CASTAÑEDA, A Attending Clinician Lab, Fam Pob I Attending Clinician Unavailable Kristofer CORCORAN, S Attending Clinician Unavailable Zeus GILLESPIE, E Attending Clinician Pob, Lab Main Attending Clinician Unavailable Doctor Unassigned, Name Attending Clinician Unavailable Nellie GILLESPIE Attending Clinician Anam GILLESPIE, R Attending Clinician Al GILLESPIE, Siomara Attending Clinician Anna GILLESPIE Attending Clinician Yfn Henriquez MD Attending Clinician ZEINALI Attending Clinician Unavailable Lb Mcgrath MD Attending Clinician Only, Test Attending Clinician Unavailable GUSTAVO KENNEDY Attending Clinician Unavailable Jose AVITIA Attending Clinician Unavailable SIOMARA MELENDEZ Admitting Clinician Unavailable Lb Mcgrath MD Admitting Clinician Payers Payer Name Policy Type Policy Effective Date Expiration Date Sour ce Number MEDICAREMEDICARE A [id number] [address] [facility] [id number] 2011[facility]P 00[facility]00[facility] Problems Condition Condition Condition Status Onset Resolution Last Treating Co mments Source Name Details Category Date Date Treatment Clinician Date Acute deep Acute deep Disease Active [facility] 8 [facility] - thrombosis thrombosis 00:00: Me dical (DVT) of (DVT) of 00 Center left lower left lower extremity, extremity, unspecifie unspecifie d vein d vein Chronic Chronic Disease Active [facility] systolic systolic 212 [facility] - congestive congestive 00:00: Me dical heart heart 00 Center failure failure Ingrowing Ingrowing Disease Active [facility] nail with nail with 2-12 [facility] - infection infection 00:00: Medi vidhya 00 Center Pancreatit Pancreatit Disease Active [facility] is is 1-08 [facility] - 00:00: Medical 00 Center CHF CHF Disease Active [facility] (congestiv (congestiv 07-05 [facility] - e heart e heart 00:00: Medical failure) failure) 00 Center Chest pain Chest pain Disease Active [facility] - 00:[facility] Medical 00 Center HTN HTN Disease Active [facility] (hypertens (hypertens 8- [facility] - ion) ion) 00:00: Medical 00 Center DM type 2 DM type [address] [facility] (diabetes (diabetes 07-05 [facility] - mellitus, mellitus, 00:00: Medi vidhya type 2) type 2) 00 Center Allergies, Adverse Reactions, Alerts This patient has no known allergies or adverse reactions. Family History Family Member Diagnosis Comments Start Date Stop Date Source Natural brother Diabetes [facility] Natural father Diabetes [facility] Natural father Heart disease [facility] Natural sister Diabetes [facility] Social History Social Habit Start Date Stop Date Quantity Comments Source Sex Assigned At [facility] Tobacco use and 2020-12-18 2020-12-18 Never used [facility] - exposure 00:00:00 00:00:00 [facility] Alcohol intake 2020-12-18 2020-12-[address] [facility] 00:00:00 00:00:00 non-drinker of Medical Ce nter alcohol (finding) Smoking Status Start Date Stop Date Source Never smoker [facility] Medications Ordered Filled Start Stop Current Ordering Indication Dosage Frequency Signature Comments Components Source Medication Medication Date Date Medication? Clinician (SIG) Name Name zolpidem Yes TAKE [address] [facility] [address] (AMBIEN) 10 4-15 TABLET BY [facility] - mg tablet 00:00: MOUTH AT [facility] 00 NIGHT Center NEEDED FOR INSOMNIA , MAX 10 MG PER DAY carvediloL Yes TAKE 1 [facility] (COREG) 25 4-09 TABLET BY [facility] - MG tablet 00:00: [facility] 00 TWICE Center DAILY WITH BREAKFAST AND DINNER Entresto Yes Take [address] [facility] 97-103 mg 3-05 tablet by [facility] - Tab 00:00: [facility] 00 twice Center daily Eliquis 5 Yes TAKE [address] [facility] MG tablet 2-03 TABLET BY [facility] - 00:00: [facility] 00 TWICE Center DAILY FOR 6 DAYS, THEN TAKE 1 TABLET TWICE A DAY insulin Yes 60U Q.5D Inject 60 [facility] glargine 1-20 Units [facility] - (LANTUS) 10:16: subcutaneo Med ical 100 unit/mL 54 usly 2 Center injection (two) times daily. SITagliptin No 100mg QD Take [address] (Januvia) 1-20 04-20 tablet [facility] - 100 MG 00:00: 23:59 (100 mg Medical tablet 00 :00 total) by Center mouth daily for 90 days. zolpidem 2020- No 10mg Take [address] [facility] (AMBIEN) 10 1-20 04-15 tablet (10 L [facility] - mg tablet 00:00: 00:00 mg total) Me dical 00 :00 by mouth Center every night as needed for Insomnia. Max Daily Amount: 10 mg glipiZIDE Yes Take [address] [facility] (GLUCOTROL 1-13 tablet by [facility] - XL) 10 MG 00:00: mouth once Me dical 24 hr 00 daily Center tablet glipiZIDE 2020- No 10mg QD Take 1 [facility] (GLUCOTROL 1-13 01-20 tablet (10 [facility] - XL) 10 MG 00:00: 00:00 mg total) Me dical 24 hr 00 :00 by mouth Center tablet daily. glipiZIDE No 10mg QD Take 1 [facility] (GLUCOTROL 1-12 01-20 tablet (10 [facility] - XL) 10 MG 00:00: 00:00 mg total) Me dical 24 hr 00 :00 by mouth Center tablet daily. zolpidem 2019-11 10mg Take [address] [facility] (AMBIEN) 10 2-21 -20 tablet (10 [facility] - mg tablet 00:00: 00:00 mg total) Me dical 00 :00 by mouth Center every night as needed for Insomnia. Max Daily Amount: 10 mg Ventolin 2019-11 Yes INHALE 1 [facility] HFA 90 2-20 TO 2 PUFFS [facility] - mcg/actuati 00:00: BY MOUTH Me dical on inhaler 00 EVERY [address] 6 HOURS NEEDED FOR DIFFICULY BREATHING Entresto 2019-11- No Take [address] [facility] 97-103 mg 2-07 03-05 tablet by Luke [facility] - Tab 00:00: 00:00 mouth Medical 00 :00 twice Center daily apixaban 2019-11 No 5mg Q.5D Take [address] [facility] (ELIQUIS) 5 0-07 02-03 tablet (5 [facility] - mg Tab 00:00: 00:00 mg total) Medic al tablet 00 :00 by mouth 2 Center (two) times daily 10mg twice a day for 6 days then 5mg twice a day AFTER THAT. metoclopram No 10mg Take [address] mallorie HCl 07-29 08- by mouth 4 [facility] - (REGLAN) 10 10:23: 00:00 (four) Med ical MG tablet 58 :00 times Center daily as needed for Nausea. sacubitriL- 2019-0 2020- No chronic 1{tbl} Q.5D Take [address] [facility] valsartan 07-29 08-31 heart tablet by [facility] - (ENTRESTO) 10:23: 00:00 failure mouth 2 Medical 97-103 mg 58 :00 (two) Center Tab times daily. metFORMIN 2019-0 2020- No 500mg Take [address] (GLUCOPHAGE 8 08-31 mg by [facility] - ) 500 MG 10:19: 00:00 mouth 2 Medic al tablet 34 :00 (two) Center times daily with breakfast and dinner. isosorbide 2020-0 Yes 60mg QD Take 1 [facility] mononitrate 8-31 tablet (60 [facility] - (IMDUR) 60 00:00: mg total) Me dical MG 24 hr 00 by mouth Center tablet daily. gabapentin 2020-0 Yes 300mg [id number] Take [address] [facility] (NEURONTIN) 8 [id number] capsule [facility] - 300 MG 00:00: 3D (300 mg Medical capsule 00 total) by Center mouth 3 (three) times daily. atorvastati 2020-0 Yes 20mg QD Take [address] [facility] n (LIPITOR) 8- tablet (20 [facility] - 20 MG 00:00: mg total) Medical tablet 00 by mouth Center every evening. torsemide 2020-0 Yes 10mg QD Take [address] [facility] (DEMADEX) 8-31 tablet (10 [facility] - 10 MG 00:00: mg total) Medical tablet 00 by mouth Center every evening. metoclopram 2020-0 Yes 10mg Take [address] [facility] mallorie HCl 8-31 tablet (10 [facility] - (REGLAN) 10 00:00: mg total) M edical MG tablet 00 by mouth 4 Cent er (four) times daily as needed for Nausea. insulin 2019-0 Yes 15U Inject 15 [facility] aspart 8- Units [facility] - U-100 00:00: subcutaneo Medica l (NOVOLOG) 00 usly 3 Center 100 unit/mL (three) injection times daily before meals. carvediloL 2019-0 2020- No 25mg Take [address] [facility] (COREG) 25 8 04-09 tablet (25 [facility] - MG tablet 00:00: 00:00 mg total) Me dical 00 :00 by mouth 2 Center (two) times daily with breakfast and dinner BREAKFAST AND DINNER. glipiZIDE No 10mg QD Take 1 [facility] (GLUCOTROL 07-29 01-12 tablet (10 [facility] - XL) 10 MG 00:00: 00:00 mg total) Me dical 24 hr 00 :00 by mouth Center tablet daily. zolpidem 2019- No 10mg Take [address] [facility] (AMBIEN) 10 07-29 12-18 tablet (10 [facility] - mg tablet 00:00: 00:00 mg total) Me dical 00 :00 by mouth Center every night as needed for Insomnia. Max Daily Amount: 10 mg sacubitriL- 2019- No chronic 1{tbl} Q.5D Take [address] [facility] valsartan 07-29 heart tablet by [facility] - (ENTRESTO) 00:00: 00:00 failure mouth 2 Medical 97-103 mg 00 :00 (two) Center Tab times daily for 90 days. insulin 2019- No 60U QD Inject [address] [address] glargine 07-29 11-29 Units [facility]ukes - (LANTUS) 00:00: 23:59 subcutaneo Me dical 100 unit/mL 00 :00 usly every Ce nter (3 mL) InPn morning for 90 days. cyclobenzap 2019- No 10mg Take [address] [facility] rine 07-29 09-10 tablet (10 [facility] - (FLEXERIL) 00:00: 23:59 mg total) M edical 10 MG 00 :00 by mouth 3 Center tablet (three) times daily as needed for Muscle spasms for up to 10 days. mupirocin 2019-2019- No 1g Q.5D Apply [address] (BACTROBAN) 07-29 topically [facility] - 2 % 00:00: 23:59 2 (two) Medical ointment 00 :00 times Center daily for 7 days. apixaban 2019-2019- No 10mg Q.5D Take [address] [facility] [address] (ELIQUIS) 5 07-20 10-07 tablets [facility] - mg Tab 00:00: 00:00 (10 mg Medical tablet 00 :00 total) by Center mouth 2 (two) times daily 10mg twice a day for 6 days then 5mg twice a day AFTER THAT. rivaroxaban 2020- No 15mg Take [address] [facility] (XARELTO) 07-20 tablet (15 [facility] - 15 mg Tab 00:00: 00:00 mg total) Me dical tablet 00 :00 by mouth 2 Center (two) times daily with breakfast and dinner for 21 days. rivaroxaban 2019- No 20mg Take [address] [facility] (XARELTO) 07-20 tablet (20 [facility] - 20 mg Tab 00:00: 00:00 mg total) Me dical tablet 00 :00 by mouth Center daily with dinner for 30 days. rivaroxaban 2019- No 15mg PO [facility] (XARELTO) 07-20 twice a [facility] - 15 mg (42)- 00:00: 00:00 day for 21 Medical 20 mg (9) 00 :00 DAYS then Cente r DsPk 20mg ONCE A DAY WITH DINNER AFTER THAT. enoxaparin 2019- No 110mg Inject 0.[address] [facility] (LOVENOX) 07-20 mLs (110 [facility] - 120 mg/0.8 00:00: 00:00 mg total) M edical mL Syrg 00 :00 subcutaneo Center usly every 12 (twelve) hours for 30 days. gabapentin 2019- No 300mg Q.[id number] Take [address] [facility] (NEURONTIN) 07-04- [id number] capsule [facility] - 300 MG 00:00: 00:00 3D (300 mg Medical capsule 00 :00 total) by Center mouth 3 (three) times daily. zolpidem 2019- No TAKE [address] [facility] (AMBIEN) 10 7-06 05- TABLET BY [facility] - mg tablet 00:00: 00:00 MOUTH AT Med ical 00 :00 NIGHT Center NEEDED FOR INSOMNIA MAX DAILY AMOUNT 10 MG insulin 2019- No 15U Inject [address] [facility] aspart 5-11 08-31 Units [facility]ukes - U-100 00:00: 00:00 subcutaneo Medic al (NOVOLOG) 00 :00 usly 3 Center 100 unit/mL (three) injection times daily before meals. carvediloL 2019-2019- No 25mg Take [address] [facility] (COREG) 25 04-08 tablet (25 [facility] - MG tablet 00:00: 00:00 mg total) Me dical 00 :00 by mouth 2 Center (two) times daily with breakfast and dinner BREAKFAST AND DINNER. isosorbide 2019- No 60mg QD Take [address] [facility] [address] mononitrate 04-08 tablet (60 [facility] - (IMDUR) 60 00:00: 00:00 mg total) M edical MG 24 hr 00 :00 by mouth Center tablet daily. glipiZIDE 2019- No 10mg QD Take 1 [facility] (GLUCOTROL 04-08 tablet (10 [facility] - XL) 10 MG 00:00: 00:00 mg total) Me dical 24 hr 00 :00 by mouth Center tablet daily. atorvastati 2019-2019- No 20mg QD Take [address] [facility] [address] n (LIPITOR) 04-08 tablet (20 [facility]kes - 20 MG 00:00: 00:00 mg total) Medica l tablet 00 :00 by mouth Center every evening. torsemide 2019-2019- No 10mg QD Take 1 [facility] (DEMADEX) 04-08 tablet (10 [facility] - 10 MG 00:00: 00:00 mg total) Medica l tablet 00 :00 by mouth Center every evening. insulin 2019-2019- No 55U QD Inject [address] glargine 04-08-31 Units [facility]ukes - (LANTUS) 00:00: 00:00 subcutaneo Me dical 100 unit/mL 00 :00 usly every Ce nter (3 mL) InPn morning. spironolact 2019- 2020- No 25mg QD Take [address] [facility] one 04-08- tablet (25 [facility] - (ALDACTONE) 00:00: 23:59 mg total) Medical 25 MG 00 :00 by mouth Center tablet daily for 90 days. ENTRESTO 2019- 2020- No 1{tbl} Q.5D Take [address] [facility] 97-103 mg 04-08- tablet by Luke [facility] - Tab 00:00: 23:59 mouth 2 Medical 00 :00 (two) Center times daily for 90 days. gabapentin 2019- 300mg Q.[id number] Take [address] [facility] (NEURONTIN) 5-11 08-06 [id number] capsule [facility] - 300 MG 00:00: 00:00 3D (300 mg Medical capsule 00 :00 total) by Center mouth 3 (three) times daily. zolpidem 2019- No 10mg Take [address] [facility] (AMBIEN) 10 5-11 07-07 tablet (10 L [facility]kes - mg tablet 00:00: 00:00 mg total) Me dical 00 :00 by mouth Center every night as needed for Insomnia. Max Daily Amount: 10 mg ENTRESTO 2019- No 1{tbl} Q.5D Take [address] [facility] 97-103 mg 4-29 05-11 tablet by [facility] - Tab 00:00: 00:00 mouth 2 Medical 00 :00 (two) Center times daily. zolpidem 2019- No TAKE [address] [facility] (AMBIEN) 10 4-22 05-11 TABLET BY [facility] - mg tablet 00:00: 00:00 MOUTH ONCE M edical 00 :00 DAILY AT Center NIGHT NEEDED FOR INSOMNIA carvediloL 2019- No TAKE [address] [facility] (COREG) 25 4-13 05-11 TABLET BY [facility] - MG tablet 00:00: 00:00 MOUTH Medica l 00 :00 TWICE Center DAILY WITH BREAKFAST AND DINNER glipiZIDE 2019- No Take 1 [facility] (GLUCOTROL 3-29 05-11 tablet by [facility] - XL) 10 MG 00:00: 00:00 mouth once M edical 24 hr 00 :00 daily Center tablet gabapentin 2019- No TAKE [address] [facility] (NEURONTIN) 1-24 05-11 CAPSULE BY L ukes - 300 MG 00:00: 00:00 MOUTH Medical capsule 00 :00 THREE Center TIMES DAILY metFORMIN 2018-11- No TAKE 1 [facility] (GLUCOPHAGE 2-06 05-11 TABLET BY [facility] - ) 1000 MG 00:00: 00:00 MOUTH Medica l tablet 00 :00 TWICE Center DAILY WITH BREAKFAST AND DINNER gabapentin 2019- No TAKE [address] [facility] [address] (NEURONTIN) 9-16 05-11 CAPSULE BY L ukes - 300 MG 00:00: 00:00 MOUTH Medical capsule 00 :00 THREE Center TIMES DAILY torsemide 2020- No TAKE 1 [facility] (DEMADEX) 7-12 05-11 TABLET BY [facility] - 10 MG 00:00: 00:00 MOUTH IN Medical tablet 00 :00 THE Center EVENING spironolact 2020- No 25mg QD Take [address] one 6-19 05-11 by mouth [facility] - (ALDACTONE) 00:00: 00:00 daily. Med ical 25 MG 00 :00 Center tablet ENTRESTO 2020- No 1{tbl} Q.5D Take [address] [facility] 49-51 mg 5-18 05-11 tablet by [facility] - Tab 00:00: 00:00 mouth 2 Medical 00 :00 (two) Center times daily. isosorbide 2019- No 60mg QD Take [address] [facility] mononitrate 3-25 05-11 tablet (60 [facility] - (IMDUR) 60 00:00: 00:00 mg total) M edical MG 24 hr 00 :00 by mouth Center tablet daily. atorvastati 2019- No 20mg QD Take [address] [facility] n (LIPITOR) 3-25 05-11 tablet (20 [facility] - 20 MG 00:00: 00:00 mg total) Medica l tablet 00 :00 by mouth Center every evening. insulin 2017-11- No 55U QD Inject [address] glargine 2-26 05-11 Units [facility]ukes - (LANTUS) 00:00: 00:00 subcutaneo Me dical 100 unit/mL 00 :00 usly every Ce nter (3 mL) InPn morning. insulin 2017-11- No 15U Inject [address] [facility] aspart 0-19 05-11 Units [facility]ukes - U-100 00:00: 00:00 subcutaneo Medic al (NOVOLOG) 00 :00 usly 3 Center 100 unit/mL (three) injection times daily before meals. Immunizations Ordered Immunization Filled Immunization Date Status Commen ts Source Name Name (Shingrix, 2020-10-[address] [facility] - Recombinant, 00:00:00 Medical Cent er Adjuvanted) Zoster Vaccine IM Influenza TIV (IM) 2020-07-[address] [facility] - 00:[facility]:00 Medical Center SHINGLES VARICELLA 2020-06-[address] [facility] - (ZOSTAVAX) ZOSTER 00:00:00 [facility] Influenza TIV (IM) 2018-09-[address] [facility] - 00:00:00 [facility] Pneumococcal 2018-09-[address] [facility] - Polysaccharide 00:00:00 Medical Ce nter (Pneumovax) Influenza TIV (IM) 2017-10-[address] [facility] - 00:00:00 [facility] Pneumococcal 2014-12-[address] [facility] - Polysaccharide 00:00:00 Medical Ce nter (Pneumovax) Vital Signs Vital Name Observation Time Observation Value Comments Source Systolic blood 2020-12-18 10:03:00 144 mm[Hg] [facility] Diastolic blood 2020-12-18 10:03:00 64 mm[Hg] [facility] Heart rate 2020-12-18 10:03:00 94 /min [facility] Body temperature 2020-12-18 10:03:00 36.11 Debbi [facility] Respiratory rate 2020-12-18 10:03:00 18 /min [facility] Body height 2020-12-18 10:03:00 160 cm [facility] Body weight 2020-12-18 10:03:00 122.063 kg [facility] BMI 2020-12-18 10:03:00 47.67 kg/m2 [facility] Oxygen saturation in 2020-12-18 10:03:00 96 /min room air [facility] Arterial blood by Medical Ce nter Pulse oximetry Procedures Procedure Date / Time Performed Performing Clinician Sourlester e VITAMIN D, 25-HYDROXY 2020-12-18 10:56:00 Sincere Wade [facility] BASIC METABOLIC PANEL (7) 2020-12-18 10:56:00 Sincere Wade [facility] CBC W/PLT COUNT & AUTO 2020-11-15 11:16:00 Sincere Wade CH I [facility] COMPREHENSIVE METABOLIC 2020-11-15 11:16:00 Sincere Wade [facility] HEMOGLOBIN A1C 2020-11-15 11:16:00 Sincere Wade [facility] IRON, TIBC, % SAT. 2020-11-15 11:15:00 Sincere Wade [facility] (WITHOUT FERRITIN) [facility] B12 AND FOLATE 2020-11-15 11:15:00 Sincere Wade CH [facility] B-TYPE NATRIURETIC FACTOR 2020-11-15 11:15:00 Sincere Wade [facility] (BNP) [facility] TSH/FREE T4 IF INDICATED 2020-11-15 11:15:00 Sincere Wade [facility] CT LOWER EXTREMITY 2020-07-29 13:51:00 Sincere Wade [facility] WITHOUT IV CONTRAST [facility] CARDIAC CATH REPORT - 2020-07-23 10:40:10 Provider, Default [facility] SCAN [facility] VASCULAR DIAGRAM -SCAN 2020-07-23 10:40:08 Provider, Default [facility] POCT-GLUCOSE METER 2020-07-20 11:38:00 Adan Castillo [facility] POCT-GLUCOSE METER 2020-07-20 07:41:00 Anna [facility] B-TYPE NATRIURETIC FACTOR 2020-07-20 04:21:00 Bucky Alaniz [facility] (BNP) [facility] CALCIUM, IONIZED 2020-07-20 04:21:00 Bucky Alaniz [facility] CBC W/PLT COUNT & AUTO 2020-07-20 04:21:00 Bucky Alaniz [facility] DIFFERENTIAL [facility] MAGNESIUM 2020-07-20 04:21:00 Bucky Alaniz [facility] PHOSPHORUS 2020-07-20 04:21:00 Bucky Alaniz [facility] COMPREHENSIVE METABOLIC 2020-07-20 04:21:00 Murphy Osullivan [facility] FACTOR 5 LEIDEN PCR 2020-07-20 04:21:00 Omari Barrientos [facility] (THROMBOTIC RISK) [facility] PROTHROMBIN GENE MUTATION 2020-07-20 04:21:[address] [facility] POCT-GLUCOSE METER 2020-07-19 21:05:00 Anna [facility] POCT-GLUCOSE METER 2020-07-19 16:58:00 Anna [facility] BASIC METABOLIC PANEL (7) 2020-07-19 12:53:00 Bucky Alaniz [facility] CALCIUM, IONIZED 2020-07-19 12:53:00 Bucky Alaniz [facility] CBC W/PLT COUNT & AUTO 2020-07-19 12:53:00 Bucky Alaniz [facility] MAGNESIUM 2020-07-19 12:53:00 Bucky Alaniz [facility] PHOSPHORUS 2020-07-19 12:53:00 Bucky Alaniz [facility] POCT-GLUCOSE METER 2020-07-19 12:05:00 Anna [facility] POCT-GLUCOSE METER 2020-07-19 10:40:00 Anna [facility] POCT-ACT 2020-07-19 09:26:00 Anna [facility] POCT-ACT 2020-07-19 08:31:00 Anna [facility] THROMBOLYSIS VENOUS - 2020-07-19 07:11:00 Terry Henriquez [facility] - INITIAL DAY [facility] - [facility] C enter PROC ONLY POCT-GLUCOSE METER 2020-07-18 21:14:00 Anna [facility] SARS-COV2/RT-PCR ([facility] & 2020-07-18 16:36:00 Terry Henriquez [facility] - REF LABS) [facility] POCT-GLUCOSE METER 2020-07-18 15:52:00 [facility] APTT 2020-07-18 14:38:00 Tonie Melendez [facility] POCT-GLUCOSE METER 2020-07-18 11:22:00 Anna [facility] POCT-GLUCOSE METER 2020-07-18 07:47:00 Anna [facility] CBC W/PLT COUNT & AUTO 2020-07-18 05:55:00 Bucky Alaniz CH I [facility] MAGNESIUM 2020-07-18 05:55:00 Bucky Alaniz [facility] PHOSPHORUS 2020-07-18 05:55:00 Rochelle Alanizo A [facility] CALCIUM, IONIZED 2020-07-18 05:55:00 Abran [facility] COMPREHENSIVE METABOLIC 2020-07-18 05:55:00 [facility]INR 2020-07-18 05:55:00 Al [facility] APTT 2020-07-18 05:55:00 Anny Mendieta [facility] APTT 2020-07-17 22:15:00 [facility]17 20:27[facility]00 [facility] PO[facility]UCOSE METER 2020-07-17 19:57:00 Anna [facility] CT ABDOMEN/PELVIS WITH & 2020-07-17 16:51:00 Anna [facility] WITHOUT IV CONTRAST Medical Cent er POCT-GLUCOSE METER 2020-07-17 15:24:00 Anna [facility] APTT 2020-07-17 12:24:00 Anny Mendieta [facility] POCT-GLUCOSE METER 2020-07-17 11:21:00 Anna [facility] POCT-GLUCOSE METER 2020-07-17 07:29:00 Anna [facility] B-TYPE NATRIURETIC FACTOR 2020-07-17 06:21:00 Bucky Alaniz [facility] (BNP) [facility] CALCIUM, IONIZED 2020-07-17 06:21:00 Bucky Alaniz [facility] CBC W/PLT COUNT & AUTO 2020-07-17 06:21:00 Bucky Alaniz I [facility] MAGNESIUM 2020-07-17 06:21:00 Bucky Alaniz [facility] PHOSPHORUS 2020-07-17 06:21:00 Bucky Alaniz [facility] CREATINE KINASE (CK) 2020-07-17 06:21:00 Bucky Alaniz [facility] URIC ACID 2020-07-17 06:21:00 Rochelle Alanizo A [facility] COMPREHENSIVE METABOLIC 2020-07-17 06:21:00 Murphy Osullivan [facility] PROTHROMBIN TIME/INR 2020-07-17 06:21:00 Tonie Melendez [facility] APTT 2020-07-17 06:21:00 Anny Mendieta [facility] APTT 2020-07-16 22:45:00 Anny Mendieta [facility] POCT-GLUCOSE METER 2020-07-16 20:41:00 Adan Castillo [facility] US RENAL COMPLETE 2020-07-16 19:27:[address] [facility] POCT-GLUCOSE METER 2020-07-16 16:48:00 Adan Castillo [facility] CREATININE, RANDOM URINE 2020-07-16 16:29:00 Bucky Alaniz [facility] SODIUM, RANDOM URINE 2020-07-16 16:29:00 Bucky Alaniz [facility] PROTEIN, RANDOM URINE 2020-07-16 16:29:00 Bucky Alaniz [facility] URINALYSIS W/ MICROSCOPIC 2020-07-16 16:29:00 Bucky Alaniz [facility] APTT 2020-07-16 16:28:00 Anny Mendieta [facility] XR CHEST 1 VIEW 2020-07-16 15:36:00 Bucky Alaniz [facility] PORTABLE/BEDSIDE Medical Center POCT-GLUCOSE METER 2020-07-16 13:18:00 Adan Castillo [facility] 2D ECHO W/ DOPPLER 2020-07-16 11:58:12 [facility] NM LUNG PERFUSION SCAN 2020-07-16 11:36:00 [facility] 2020-07-16 09:18:00 Anny Mendieta [facility] POCT-GLUCOSE METER 2020-07-16 07:39:00 [facility] 2020-07-16 06:47:00 Al [facility] CBC (HEMOGRAM ONLY) 2020-07-16 05:18:00 Anny Mendieta [facility] APTT 2020-07-16 05:18:00 Anny Mendieta [facility] BASIC METABOLIC PANEL (7) 2020-07-16 05:18:00 Tonie Melendez [facility] HEMOGLOBIN A1C 2020-07-16 05:18:00 Al [facility] CBC W/PLT COUNT & AUTO 2020-07-16 05:18:00 Tonie Melendez [facility] PROTHROMBIN TIME/INR 2020-07-16 05:18:00 Al [facility] SODIUM, RANDOM URINE 2020-07-16 03:05:00 Al [facility] CREATININE, RANDOM URINE 2020-07-16 03:05:00 [facility] 2020-07-15 21:07:56 Anny Mendieta [facility] VENOUS DOPPLER LEG, LEFT 2020-07-15 18:20:00 Anny Mendieta [facility] CBC W/PLT COUNT & AUTO 2020-07-15 15:07:[address] [facility] PROTHROMBIN TIME/INR 2020-07-15 15:07:00 Anny Mendieta [facility] APTT 2020-07-15 15:07:00 Anny Mendieta [facility] COMPREHENSIVE METABOLIC 2020-07-15 15:07:00 Anny Mendieta [facility] HEMOGLOBIN A1C 2020-04-08 11:19[facility]00 [facility]FREE T4 IF INDICATED 2020-04-08 11:19:00 Sincere Wade [facility] COMPREHENSIVE METABOLIC 2020-04-08 11:19:00 Sincere Wade [facility] LIPID PANEL 2020-04-08 11:19:00 [facility] Plan of Care Planned Activity Planned Date Details Comments Source Future Scheduled 2023-04-[address] [facility]00 (procedure) [code = [facility] 76183119] Future Scheduled 2021-02-[address] [facility] [facility] (procedure) [code = 19287622] Future Scheduled 2020-12-10 SHINGLES VACCINES ([address] [facility] - Test 00:00:00 of 3) [code = [facility] SHINGLES VACCINES (3 of 3)] Future Scheduled 2020-11-[address] [facility] - Test 00:00:00 (12+) [code = [facility] DEPRESSION SCREENING (12+)] Future Scheduled 2013-02-[address] [facility] [facility] - Test 00:00:00 WELLNESS (YEAR 2 or Medical Center FIRST YEAR if no IPPE) [code = MEDICARE ANNUAL WELLNESS (YEAR 2 or FIRST YEAR if no IPPE)] Future Scheduled [address] [facility] 00:[facility]:00 malignant neoplasm of [facility] Center cervix (procedure) [code = 393037861] Future Scheduled 1977 DTAP/TDAP/TD VACCINES [facility] Test 00:[facility]:00 (1 - Tdap) [code = Medical C enter DTAP/TDAP/TD VACCINES (1 - Tdap)] Future Scheduled 1976 HEPATITIS C [facility]CRE[facility]ING [facility] Test 00:[facility]:00 [code = HEPATITIS C Medical Center SCREENING] Future Scheduled 1968 DIABETIC EYE EXAM [facility] - Test 00:00:00 [code = DIABETIC EYE Medical Center EXAM] Future Scheduled [address] [facility]:00 examination Medical Center (regime/therapy) [code = 443940408] Future Scheduled 1968 Urine screening for [facility] Test 00:00:00 protein (procedure) [facility] Center [code = 199575533] Future Scheduled [address] [facility] 00:00:00 [facility] breast (procedure) [code = 283220225] Future Scheduled [address] [facility] Test 00:00:00 [facility] colon (procedure) [code = 337979420] Encounters Start End Encounter Admission Attending Care Care Encounter Source Date/Time Date/Time Type Type Clinicians Facility Department ID 2020-12-11 2020-12-11 Letter Pcp, [facility] 1.2.840.114 [id number] 00:00:00 00:00:00 (Out) Patient Health [id number] Does Not [place] 4.2.7.2.686 Have A Professio [phone] nal 0[address] One 2020-12-09 2020-12-09 Telephone Cam, [facility] [id number] 00:00:00 00:00:00 Martita A Health [id number] [place] 4.2.7.2.686 Professio [phone] nal 044 Office Building One 2020-12-04 2020-12-04 Laboratory Lab, [facility] 1.2.840.114 [id number] 09:55:41 10:15:41 Only Fam Pob I Health [id number] [place] 4.2.7.2.686 Professio [phone] nal 044 Office Building One 2020-10-28 2020-10-28 Office Link, [facility] 1.2.840.114 [id number] 12:18:08 12:48:08 Visit Lb Bowman AMBULATOR 350.1.13.21 Y 0.2.7.2.686 [id number] 2020-08-30 2020-08-30 Wastewater Engineer Roddy, Adc [facility] 1.2.840.114 [id number] 10:48:02 11:03:02 Visit Lab Main [place] 350.1.13.10 [place] 4.2.7.2.686 Professio [phone] [address] 2020-08-30 2020-08-30 Orders Doctor LAYLA 1.2.840.114 [id number] 00:00:00 00:00:00 Only Unassigned, ALEYDA 350.1.13.10 [facility] 4.2.7.2.686 [id number] [id number] 2020-08-27 2020-08-27 Wastewater Engineer Roddy, Adc [facility] 1.2.840.114 [id number] 13:39:21 13:54:21 Visit Lab Main [place] 350.1.13.10 [place] 4.2.7.2.686 Professio [phone] [address] 2020-08-22 2020-08-22 Wastewater Engineer Roddy, Adc [facility] 1.2.840.114 [id number] 15:26:34 15:41:34 Visit Lab Main [place] 350.1.13.10 [place] 4.2.7.2.686 Professio [phone] [address] 2020-08-20 2020-08-20 Wastewater Engineer Roddy, Adc [facility] 1.2.840.114 [id number] 10:58:50 11:13:50 Visit Lab Main [place] 350.1.13.10 [place] 4.2.7.2.686 Professio [phone] [address] 2020-08-20 2020-08-20 Orders Doctor LAYLA 1.2.840.114 [id number] 00:00:00 00:00:00 Only Unassigned, ALEYDA 350.1.13.10 [place] [facility] 4.2.7.2.686 [phone] 009 2020-05-09 2020-05-09 [facility], [facility] 1.2.840.114 [id number] 07:32:53 09:40:00 Encounter Mack Meza 350.1.13.10 Lb [place] 4.2.7.2.686 Surgical [phone] [place] 071 2020-05-08 2020-05-08 Laboratory Only, [facility] 1.2.840.114 [id number] 11:03:41 11:18:41 Only Test Derrick 350.1.13.10 Ren[place] 4.2.7.2.686 [place] [phone] 353 2020-04-25 2020-04-25 [facility] 1.2.840.114 [id number] 07:13:00 09:44:00 Encounter Mack Meza 350.1.13.10 Lb [place] 4.2.7.2.686 Surgical [phone] [place] 07 2020-04-25 2020-04-25 Orders Doctor LAYLA 1.2.840.114 [id number] 00:00:00 00:00:00 Only Unassigned, ALEYDA 350.1.13.10 [place] [facility] 4.2.7.2.686 [id number] 009 2020-04-24 2020-04-24 Laboratory Only, [facility] 1.2.840.114 [id number] 15:22:54 15:37:54 Only Test Derrick 350.1.13.10 [place] 4.2.7.2.686 Professio [phone] [facility] [address] [facility] 2020-04-18 2020-04-18 Wastewater Engineer Roddy, [facility] 1.2.840.114 [id number] 16:47:22 17:02:22 Visit Lab Main Derrick 350.1.13.10 [place] 4.2.7.2.686 Professio [phone] [facility] 353 [facility] Results Test Description Test Time Test Comments Results Result Comments Source Vitamin D 2020-12-18 11:46:00 Test Item Value Reference Range Interpretation Comme nts Vitamin D 25-Hydroxy (test code = 15.9 ng/mL 6.6-49.9 2764) ANTHONY (test code = ANTHONY) Effective 09/08/2017: Reference Range ChangeNew: 6.6-49.9 ng/mL Previous: 13.0-47.8 ng/mL Recommended Vitamin D Target Range: 30.0-40.0 ng/mLOperator CARRIE Hernandez Lab Interpretation (test code = Normal 54574-5) [facility] [id number] 11:46:00 Test Item Value Reference Range Interpretation Comments VITAMIN D 25-OH (BEAKER) (test 15.9 ng/mL 6.6-49.9 code = 2764) Effective 09/08/2017: Reference Range ChangeNew: 6.6-49.9 ng/mL Previous: 13.0-47.8 ng/mLRecommended Vitamin D Target Range: 30.0-40.0 ng/mLOperator CARRIE MELGARasic Metabolic [id number] 11:28:00 Test Item Value Reference Range Interpretation Comments Sodium (test code = 136 meq/L 892-463 4809-2) Potassium (test code = 4.3 meq/L 3.5-5.1 2823-3) Chloride (test code = 101 meq/L 98-107 2075-0) CO2 (test code = 30 meq/L 22-29 H 2028-9) BUN (test code = 19 mg/dL 7-21 3094-0) Creatinine (test code 1.34 mg/dL 0.57-1.25 H = 2160-0) Glucose (test code = 339 mg/dL 70-105 H 2345-7) Calcium (test code = 9.0 mg/dL 8.4-10.2 40543-4) EGFR (test code = 40 mL/min/1.73 [place] [address]-7) NOT ACCURATE CREATININE CLEARANCE IN PREDICTING GLOMERULAR FILTRATION RATE . ESTIMATED GFR I S NOT APPLICABLE FOR DIALYSIS PATIENTS. ANTHONY (test code = ANTHONY) Document Clerk CARRIE Hernandez Lab Interpretation Abnormal (test code = 56735-8) [facility] [id number] 11:28:00 Test Item Value Reference Range Interpretation Comments SODIUM (BEAKER) 136 meq/L 136-145 (test code = 381) POTASSIUM (BEAKER) 4.3 meq/L 3.5-5.1 (test code = 379) CHLORIDE (BEAKER) 101 meq/L 98-107 (test code = 382) CO2 (BEAKER) (test 30 meq/L 22-29 H code = 355) BLOOD UREA NITROGEN 19 mg/dL 7-21 (BEAKER) (test code = 354) CREATININE (BEAKER) 1.34 mg/dL 0.57-1.25 H (test code = 358) GLUCOSE RANDOM 339 mg/dL 70-105 H (BEAKER) (test code = 652) CALCIUM (BEAKER) 9.0 mg/dL 8.4-10.2 (test code = 697) EGFR (BEAKER) (test 40 mL/min/1.73 [place] GFR IS code = 1092) sq m NOT ACCURATE CREATININE CLEARANCE IN PREDICTING GLOMERULAR FILTRATION RATE . ESTIMATED GFR I S NOT APPLICABLE FOR DIALYSIS PATIEN TS. Document Clerk ID - [place] FB-type Natriuretic Factor (BNP)2020-11-15 14:51:00 Test Item Value Reference Range Interpretation Comments BNP (test code = 29688-7) 119 pg/mL 0-100 H Lab Interpretation (test code = Abnormal 97903-0) [facility] NATRIURET[facility] FACTOR (BNP)2020-11-15 14:51:00 Test Item Value Reference Range Interpretation Comments B-TYPE NATRIURETIC PEPTIDE (BEAKER) 119 pg/mL 0-100 H (test code = 700) TSH/Free T4 If [id number] 12:42:00 Test Item Value Reference Range Interpretation Comments TSH (test code = 2.524 See_Comment [Automated 38268-6) message] The system which generated this result transmit layne reference range : 0.350 - 4.940 uIU/mL. The reference range was not used to interpret this result as normal/abnormal . ANTHONY (test code = ANTOHNY) Document Clerk ID - ADMIN Lab Interpretation Normal (test code = 21621-6) [facility]12 and [id number] 12:42:00 Test Item Value Reference Range Interpretation Comments Vitamin B12 (test 307 pg/mL 213-816 code = 2132-9) Folate (test code = 11.90 ng/mL See_Comment [Automa layne 2284-8) message] The system which generated this result transmit layne reference range : >=7.00. The reference range was not used to interpret this result as normal/abnormal . ANTHONY (test code = ANTHONY) Document Clerk ID - ADMIN Lab Interpretation Normal (test code = 97363-6) [facility] T4 IF [id number] 12:42:00 Test Item Value Reference Range Interpretation Comments THYROID STIMULATING HORMONE 2.524 uIU/mL 0.350-4.940 (BEAKER) (test code = 772) Document Clerk ID - ADMINVITAMIN B12 AND [id number] 12:42:00 Test Item Value Reference Range Interpretation Comments VITAMIN B12 (BEAKER) (test code = 307 pg/mL 213-816 774) FOLATE (BEAKER) (test code = 362) 11.90 ng/mL >=7.00 Document Clerk ID - ADMINHemoglobin [id number] 12:22:00 Test Item Value Reference Range Interpretation Comments Hemoglobin A1C (test code = 4548-4) 9.7 % 4.3-6.1 H Lab Interpretation (test code = Abnormal 73414-2) [facility] [id number] 12:22:00 Test Item Value Reference Range Interpretation Comments HEMOGLOBIN A1C (BEAKER) (test code = 9.7 % 4.3-6.1 H 368) Iron, TIBC, % sat. (without ferritin)2020-11-15 12:07:00 Test Item Value Reference Range Interpretation Comments Iron (test code = 2498-4) 33.0 ug/dL 40-160 L TIBC (test code = 2500-7) 286 ug/dL 250-450 Iron % Saturation (test 12 % 20-55 L code = 2502-3) ANTHONY (test code = ANTHONY) Document Clerk ID - ADMIN Lab Interpretation (test Abnormal code = 82321-7) [facility], % SAT. (WITHOUT FERRITIN)2020-11-15 12:07:00 Test Item Value Reference Range Interpretation Comments IRON (BEAKER) (test code = 547) 33.0 ug/dL 40.0-160.0 L TOTAL IRON BINDING CAPACITY 286 ug/dL 250-450 (BEAKER) (test code = 769) IRON % SATURATION (2) (BEAKER) 12 % 20-55 L (test code = 2590) Document Clerk ID - ADMINComprehensive metabolic [id number] 11:41:00 Test Item Value Reference Range Interpretation Comments Protein, Total (test 6.8 See_Comment [Autom ated code = 2885-2) message] The system which generated this result transmit layne reference range : 6.0 - 8.3 gm/dL . The reference range was not u sed to interpret th is result as normal/abnormal . Albumin (test code = 3.5 g/dL 3.5-5 25057-7) Alkaline Phosphatase 123 U/L 40-150 (test code = 6768-6) Total Bilirubin (test 0.3 mg/dL 0.2-1.2 code = 1975-2) Sodium (test code = 134 meq/L 136-145 L 2951-2) Potassium (test code 4.4 meq/L 3.5-5.1 = 2823-3) Chloride (test code = 103 meq/L 98-107 2075-0) CO2 (test code = 22 meq/L 22-29 2028-9) BUN (test code = 32 mg/dL 7-21 H 3094-0) Creatinine (test code 1.40 mg/dL 0.57-1.25 H = 2160-0) Glucose (test code = 312 mg/dL 70-105 H 2345-7) Calcium (test code = 8.9 mg/dL 8.4-10.2 93943-1) AST (test code = 19 U/L 5-34 1920-8) ALT (test code = 21 U/L 6-55 1742-6) EGFR (test code = 38 mL/min/1.[place] [address]-2) NOT ACCURATE CREATININE CLEARANCE IN PREDICTING GLOMERULAR FILTRATION RATE . ESTIMATED GFR I S NOT APPLICABLE FOR DIALYSIS PATIEN TSShmuel ANTHONY (test code = ANTHONY) Document Clerk ID - PIAYA L Lab Interpretation Abnormal (test code = 45511-6) [facility] [id number] 11:41:00 Test Item Value Reference Range Interpretation Comments TOTAL PROTEIN 6.8 gm/dL 6.0-8.3 (BEAKER) (test code = 770) ALBUMIN (BEAKER) 3.5 g/dL 3.5-5.0 (test code = 1145) ALKALINE PHOSPHATASE 123 U/L 40-150 (BEAKER) (test code = 346) BILIRUBIN TOTAL 0.3 mg/dL 0.2-1.2 (BEAKER) (test code = 377) SODIUM (BEAKER) (test 134 meq/L 136-145 L code = 381) POTASSIUM (BEAKER) 4.4 meq/L 3.5-5.1 (test code = 379) CHLORIDE (BEAKER) 103 meq/L 98-107 (test code = 382) CO2 (BEAKER) (test 22 meq/L 22-29 code = 355) BLOOD UREA NITROGEN 32 mg/dL 7-21 H (BEAKER) (test code = 354) CREATININE (BEAKER) 1.40 mg/dL 0.57-1.25 H (test code = 358) GLUCOSE RANDOM 312 mg/dL 70-105 H (BEAKER) (test code = 652) CALCIUM (BEAKER) 8.9 mg/dL 8.4-10.2 (test code = 697) AST (SGOT) (BEAKER) 19 U/L 5-34 (test code = 353) ALT (SGPT) (BEAKER) 21 U/L 6-55 (test code = 347) EGFR (BEAKER) (test 38 mL/min/1.73 ESTIMA LAYNE GFR IS code = 1092) sq m NOT ACCURATE CREATININE CLEARANCE IN PREDICTING GLOMERULAR FILTRATION RATE . ESTIMATED GFR I S NOT APPLICABLE FOR DIALYSIS PATIEN TS. Document Clerk ID - PIAYA LCBC with platelet count + automated [id number] 11:22:00 Test Item Value Reference Range Interpretation Comments WBC (test code = 6690-2) 5.9 See_Comment [A utomated message] The system [employer] generated this result transmitted ref erence range: 3.5 - 10 .5 K/L. The refe rence range was not u sed to interpret this result as normal/abnor mal. RBC (test code = 789-8) 4.34 See_Comment [Au tomated message] The system [employer] generated this result transmitted ref erence range: 3.93 - 5 .22 M/L. The refe rence range was not u sed to interpret this result as normal/abnor mal. MCHC (test code = 786-4) 32.2 See_Comment [A utomated message] The system [employer] generated this result transmitted ref erence range: 32.2 - 3 5.5 GM/DL. The refe rence range was not u sed to interpret this result as normal/abnor mal. Hematocrit (test code = 40.4 % 34.1-44.9 4544-3) MCV (test code = 787-2) 93.1 fL 79.4-94.8 MCH (test code = 785-6) 30.0 pg 25.6-32.2 RDW (test code = 788-0) 12.9 % 11.7-14.4 Platelets (test code = 154 See_Comment [Aut omated message] 777-3) The system [employer] generated this result transmitted ref erence range: 150 - 45 0 K/CU MM. The referen ce range was not u sed to interpret this result as normal/abnor mal. MPV (test code = 10.4 fL 9.4-12.3 98403-1) nRBC (test code = 413) 0 See_Comment [Aut omated message] The system [employer] generated this result transmitted ref erence range: 0 - 0 /1 00 WBC. The refere nce range was not u sed to interpret this result as normal/abnor mal. % Neutros (test code = 68 % 429) % Lymphs (test code = 23 % 430) % Monos (test code = 7 % 431) % Eos (test code = 432) 2 % % Baso (test code = 437) 0 % # Neutros (test code = 3.99 See_Comment [Aut omated message] 670) The system [employer] generated this result transmitted ref erence range: 1.56 - 6 .13 K/L. The refe rence range was not u sed to interpret this result as normal/abnor mal. # Lymphs (test code = 1.34 See_Comment [Auto mated message] 414) The system [employer] generated this result transmitted ref erence range: 1.18 - 3 .74 K/L. The refe rence range was not u sed to interpret this result as normal/abnor mal. # Monos (test code = 0.42 See_Comment H [Autom ated message] 415) The system [employer] generated this result transmitted ref erence range: 0.24 - 0 .36 K/L. The refe rence range was not u sed to interpret this result as normal/abnor mal. # Eos (test code = 416) 0.10 See_Comment [Au tomated message] The system [employer] generated this result transmitted ref erence range: 0.04 - 0 .36 K/L. The refe rence range was not u sed to interpret this result as normal/abnor mal. # Baso (test code = 417) 0.01 See_Comment [A utomated message] The system [employer] generated this result transmitted ref erence range: 0.01 - 0 .08 K/L. The refe rence range was not u sed to interpret this result as normal/abnor mal. Immature 0 % 0-1 Granulocytes-Relative (test code = 2801) Lab Interpretation (test Abnormal code = 62871-7) [facility] W/PLT COUNT & AUTO [id number] 11:22:00 Test Item Value Reference Range Interpretation Comments WHITE BLOOD CELL COUNT (BEAKER) 5.9 K/ L 3.5-10.5 (test code = 775) RED BLOOD CELL COUNT (BEAKER) 4.34 M/ L 3.93-5.22 (test code = 761) HEMOGLOBIN (BEAKER) (test code = 13.0 GM/DL 11.2-15.7 410) HEMATOCRIT (BEAKER) (test code = 40.4 % 34.1-44.9 411) MEAN CORPUSCULAR VOLUME (BEAKER) 93.1 fL 79.4-94.8 (test code = 753) MEAN CORPUSCULAR HEMOGLOBIN 30.0 pg 25.6-32.2 (BEAKER) (test code = 751) MEAN CORPUSCULAR HEMOGLOBIN CONC 32.2 GM/DL 32.2-35.5 (BEAKER) (test code = 752) RED CELL DISTRIBUTION WIDTH 12.9 % 11.7-14.4 (BEAKER) (test code = 412) PLATELET COUNT (BEAKER) (test 154 K/CU MM 150-450 code = 756) MEAN PLATELET VOLUME (BEAKER) 10.4 fL 9.4-12.3 (test code = 754) NUCLEATED RED BLOOD CELLS 0 /100 WBC 0-0 (BEAKER) (test code = 413) NEUTROPHILS RELATIVE PERCENT 68 % (BEAKER) (test code = 429) LYMPHOCYTES RELATIVE PERCENT 23 % (BEAKER) (test code = 430) MONOCYTES RELATIVE PERCENT 7 % (BEAKER) (test code = 431) EOSINOPHILS RELATIVE PERCENT 2 % (BEAKER) (test code = 432) BASOPHILS RELATIVE PERCENT 0 % (BEAKER) (test code = 437) NEUTROPHILS ABSOLUTE COUNT 3.99 K/ L 1.56-6.13 (BEAKER) (test code = 670) LYMPHOCYTES ABSOLUTE COUNT 1.34 K/ L 1.18-3.74 (BEAKER) (test code = 414) MONOCYTES ABSOLUTE COUNT (BEAKER) 0.42 K/ L 0.24-0.36 H (test code = 415) EOSINOPHILS ABSOLUTE COUNT 0.10 K/ L 0.04-0.36 (BEAKER) (test code = 416) BASOPHILS ABSOLUTE COUNT (BEAKER) 0.01 K/ L 0.01-0.08 (test code = 417) IMMATURE GRANULOCYTES-RELATIVE 0 % 0-1 PERCENT (BEAKER) (test code = 2801) CT, EXTREMITY, LOWER WITHOUT CONTRAST, [id number] 15:05:00Unlisted Reason for Exam - Click Yes and Enter Reason Below->YesUnlisted Reason for Exam->right thigh hematomaFINAL REPORT CT of the right thigh without contrast History: Unlisted Reasonfor Examright thigh hematoma Comparisons: No priors Technique: CT of the right thigh was performed without contrast. Axial images were generated as were multiplanar reformatted images in the coronal and sagittal planes. This exam was performed according to our departmental dose optimization program which includes automated exposure control, adjustment of the mA and/or kV according to patient's size and/or use of iterative reconstructive technique. Findings: No evidence of acute fracture, or dislocation. Degenerative changes are noted in the lower lumbar spine. No suspicious bony lesion is identified. There is mild degenerative change at the right knee and symphysis pubis. No significant right hip,or knee joint effusion. There is full-thickness versus high-grade partial thickness tear of the right hamstring tendon from the ischial tuberosity, with a small amount of adjacent fluid as well as mildfat stranding. The right thigh musculature demonstrates normal bulk, and appearance. There is mild peripheral vascular calcification. No discrete hematoma is identified. Within the partially imaged pelvis, uterus contains multiple calcified fibroids. Bladder is unremarkable. No mass, lymphadenopathy, or ascites. IMPRESSION: Full-thickness versus high-grade partial thickness tear of the right hamstring tendons from ischial tuberosity, associated with a small amount of adjacent fluid. Mild osteoarthritis. Fibroid uterus. Signed: Thang Obrieneport Verified Date/Time: 07/29/2020 15:05:00 Reading Location: [facility] C013X Ortho Consult Reading Room CT lower extremity without IV contrast [id number] 15:05:00Interface, External Ris In - 07/29/2020 3:[address] of the right thigh without contrast History: Unlisted Reason for Examright thigh hematoma Comparisons: No priors Technique: CT of the right thigh was performed without contrast. Axial images were generated as were multiplanar reformatted images in the coronal and sagittal planes. This exam was performed according to our departmental dose optimization program which includes automated exposure control, adjustment of the mA and/or kV according to patient's size and/or use of iterative reconstructive technique. Findings: No evidence of acute fracture, or dislocation. Degenerative changes are noted in the lower lumbar spine. No suspicious bony lesion is identified. There is mild degenerative change at the rightknee and symphysis pubis. No significant right hip, or knee joint effusion. There is full-thickness versus high-grade partial thickness tear of the right hamstring tendon from the ischial tuberosity, with a small amount of adjacent fluid as well as mild fat stranding. The right thigh musculature demonstrates normal bulk, and appearance. There is mild peripheral vascular calcification. No discrete hematoma is identified. Within the partially imaged pelvis, uterus contains multiple calcified fibroids.Bladder is unremarkable. No mass, lymphadenopathy, or ascites. IMPRESSION: Full-thickness versus high-grade partial thickness tear of the right hamstring tendons from ischial tuberosity, associated with a small amount of adjacent fluid. Mild osteoarthritis. Fibroid uterus. Signed: Thang Obrieneport Verified Date/Time: 07/29/2020 15:05:00 Reading Location: [facility] B1 C013X Ortho Consult Reading Room [facility] Prothrombin Gene [id number] 20:10:00 Test Item Value Reference Interpretation Comments Range PROTHROMBIN GENE SEE BELOW RESULT: G20 210A ANALYSIS (test code variant not detected = [id number]) Interpretation SEE BELOW INTERPRETATIO N: This (test code = individual is n egative [id number]) (normal) for th e D68193H variant in the Prothrombin/Fac tor II gene. Increased risk of thrombophili a can becaused by a v ariety of genetic and non-genetic fac tors not screened fo r bythis assay. Laboratory test ing supervised and results monitored by Zonia Vyas, Ph.D.,D [facility]. The G20 210A mutation [AF478 696.1: g.45708J>A (c.* 97G>A)] in theProthrombin/ Factor II gene is the second most common inh erited risk factorfor thrombosis occu rring in approximatel y 2% of Caucasians. Pre sence of themutation is associated with an elevation of prothrombin lev els to about 30%above normal in heterozygote s and to 70% above no rmal in homozygotes. Prothrombin (G2 0210A) mutations are d etected by amplificatio n of theirselected g glen regions by poly merase chain reaction (PCR) and fluorescent probe hybridization t o the targeted region , followed by joao ting curveanalysis w ith a real time PCR s ystem. Although rare, false positive or falsenegative r esults may occur. All results should be inter preted in context ofcl inical findings, relev ant history, and ot her laboratory data . Health care pro viders, please contact your local [facility] geneticcounselo r or call [phone] [employer] ([phone]) for assistance withinterpretat ion of these results. This test was shalondao gregg and its analytical performance characteristics havebeen determ ined by [facility] [place] .It has not been cleare d or approved by FDA . This assay has been validatedpursua nt to the CLIA regula tions and is used for clinical purpos es. ANTHONY (test code = Performing Lab ANTHONY) EZ [facility] [address] [address] Evan Gonzalez MD, PhD, KATHIE [facility]ano[facility] 5 Leiden PCR (thrombotic risk)2020-07-24 18:04:00 Test Item Value Reference Interpretation Comments Range Factor V Leiden SEE BELOW RESULT: FACT OR V Mutation (test code LEIDEN ( R506Q) VARIANT = [id number]) NOT DETECTED Interpretation SEE BELOW INTERPRETATIO N: This (test code = individual is n egative [id number]) (normal) for th e Factor V Leiden (R506Q) variant in the Factor V gene. Increas ed risk of thrombophili a can becaused by a v ariety of genetic and non-genetic fac tors not screened fo r bythis assay. Laboratory test ing supervised and results monitored by Francnie Mejia MD, PhD, FACMG, [facility]. MUTATI ON ANALYSIS:The Fa ctor V Leiden (R506Q) mutation [NM 00 0130.2: c.1601G>A (p.R5 34Q)] inthe Factor V gene is one of the most common causes of inheritedthromb ophilia . This mutation causes resistance to degradation of activatedFactor V protein by acti vated protein C (APC) . The Factor V Leiden (R506Q)mutation is detected by amplification o f the selected region of Factor V geneby polymerase maddie n reaction (PCR) and fluorescent pro be hybridization t o thetargeted reg ion, followed by joao ting curve analysis with a real time PCRsy stem. Although rare, false positive or fal se negative result s may occur.All resul ts should be inter preted in context of c linical findings, relevanthistory , and other laborator y data. This test was developed and i ts analytical perf ormance characteristics havebeen determ ined by [facility] [employer] te [place] .It has not been cleare d or approved by FDA . This assay has been validatedpursua nt to the CLIA regula tions and is used for clinical purpos es. Health care pro viders, please contact your local [facility] geneticcounselo r or call [phone] [employer] ([phone]) for assistance withinterpretat ion of these results. ANTHONY (test code = Performing Lab ANTHONY) EZ [facility] [address] [place] [address] Evan Gonzalez MD, PhD, KATHIE [facility] DelanoPOC-Glucose [id number] 12:07:00 Test Item Value Reference Range Interpretation Comments POC-Glucose Meter (test 259 mg/dL 70-110 H : TE STED AT [facility] code = 1538) 6720 [facility], 770 30: Document Clerk/Techni kate ID = [id number] for CORONA DUMONT Lab Interpretation (test Abnormal code = 51296-6) [facility]anoPOCT-GLUCOSE [id number] 12:07:00 Test Item Value Reference Range Interpretation Comments POC-GLUCOSE METER 259 mg/dL 70-110 H : [facility] (BEAKER[facility] (test code = [facility], 1538) [address]: Document Clerk/Techni kate ID = [id number] for [place]ONA VILLA POCT-GLUCOSE [id number] 08:02:00 Test Item Value Reference Range Interpretation Comments POC-GLUCOSE METER 206 mg/dL 70-110 H : TESTED A T [facility] 6720 (BEAKER) (test code = [facility], 1538) [address]: Document Clerk/Techni kate ID = [id number] for [place]A [id number] 05:38:00 Test Item Value Reference Range Interpretation Comments Magnesium (test code = 1.8 mg/dL 1.6-2.6 37127-6) ANTHONY (test code = ANTHONY) Document Clerk ID - AMIRAH M Lab Interpretation (test Normal code = 58731-9) [facility]ano[facility]osphorus2020-08-22 05:38:00 Test Item Value Reference Range Interpretation Comments Phosphorus (test code = 2.8 mg/dL 2.3-4.7 2777-1) ANTHONY (test code = ANTHONY) Document Clerk ID - AMIRAH M Lab Interpretation (test Normal code = 45807-0) [facility]anoPHOSPHORUS2020-08-22 05:38:00 Test Item Value Reference Range Interpretation Comments PHOSPHORUS (BEAKER) (test code = 2.8 mg/dL 2.3-4.7 604) Document Clerk ID - AMIRAH [id number] 05:38:00 Test Item Value Reference Range Interpretation Comments MAGNESIUM (BEAKER) (test code = 1.8 mg/dL 1.6-2.6 627) Document Clerk ID - AMIRAH MCOMPREHENSIVE METABOLIC [id number] 05:38:00 Test Item Value Reference Range Interpretation Comments TOTAL PROTEIN 6.7 gm/dL 6.0-8.3 (BEAKER) (test code = 770) ALBUMIN (BEAKER) 3.7 g/dL 3.5-5.0 (test code = 1145) ALKALINE PHOSPHATASE 120 U/L 40-150 (BEAKER) (test code = 346) BILIRUBIN TOTAL 0.6 mg/dL 0.2-1.2 (BEAKER) (test code = 377) SODIUM (BEAKER) (test 136 meq/L 136-145 code = 381) POTASSIUM (BEAKER) 4.5 meq/L 3.5-5.1 (test code = 379) CHLORIDE (BEAKER) 107 meq/L 98-107 (test code = 382) CO2 (BEAKER) (test 20 meq/L 22-29 L code = 355) BLOOD UREA NITROGEN 22 mg/dL 7-21 H (BEAKER) (test code = 354) CREATININE (BEAKER) 1.22 mg/dL 0.57-1.25 (test code = 358) GLUCOSE RANDOM 217 mg/dL 70-105 H (BEAKER) (test code = 652) CALCIUM (BEAKER) 9.2 mg/dL 8.4-10.2 (test code = 697) AST (SGOT) (BEAKER) 18 U/L 5-34 (test code = 353) ALT (SGPT) (BEAKER) 21 U/L 6-55 (test code = 347) EGFR (BEAKER) (test 45 mL/min/1.73 ESTIMA LAYNE GFR IS code = 1092) sq m NOT ACCURATE CREATININE CLEARANCE IN PREDICTING GLOMERULAR FILTRATION RATE . ESTIMATED GFR I S NOT APPLICABLE FOR DIALYSIS PATIEN TS. Document Clerk ID - AMIRAH MB-TYPE NATRIURETIC FACTOR (BNP)2020-07-20 05:34:00 Test Item Value Reference Range Interpretation Comments B-TYPE NATRIURETIC PEPTIDE (BEAKER) 213 pg/mL 0-100 H (test code = 700) Document Clerk ID - AMIRAH MCBC W/PLT COUNT & AUTO [id number] 05:16:00 Test Item Value Reference Range Interpretation Comments WHITE BLOOD CELL COUNT (BEAKER) 9.9 K/ L 3.5-10.5 (test code = 775) RED BLOOD CELL COUNT (BEAKER) 3.52 M/ L 3.93-5.22 L (test code = 761) HEMOGLOBIN (BEAKER) (test code = 11.1 GM/DL 11.2-15.7 L 410) HEMATOCRIT (BEAKER) (test code = 32.9 % 34.1-44.9 L 411) MEAN CORPUSCULAR VOLUME (BEAKER) 93.5 fL 79.4-94.8 (test code = 753) MEAN CORPUSCULAR HEMOGLOBIN 31.5 pg 25.6-32.2 (BEAKER) (test code = 751) MEAN CORPUSCULAR HEMOGLOBIN CONC 33.7 GM/DL 32.2-35.5 (BEAKER) (test code = 752) RED CELL DISTRIBUTION WIDTH 12.9 % 11.7-14.4 (BEAKER) (test code = 412) PLATELET COUNT (BEAKER) (test 198 K/CU MM 150-450 code = 756) MEAN PLATELET VOLUME (BEAKER) 11.2 fL 9.4-12.3 (test code = 754) NUCLEATED RED BLOOD CELLS 0 /100 WBC 0-0 (BEAKER) (test code = 413) NEUTROPHILS RELATIVE PERCENT 64 % (BEAKER) (test code = 429) LYMPHOCYTES RELATIVE PERCENT 25 % (BEAKER) (test code = 430) MONOCYTES RELATIVE PERCENT 7 % (BEAKER) (test code = 431) EOSINOPHILS RELATIVE PERCENT 3 % (BEAKER) (test code = 432) BASOPHILS RELATIVE PERCENT 1 % (BEAKER) (test code = 437) NEUTROPHILS ABSOLUTE COUNT 6.31 K/ L 1.56-6.13 H (BEAKER) (test code = 670) LYMPHOCYTES ABSOLUTE COUNT 2.49 K/ L 1.18-3.74 (BEAKER) (test code = 414) MONOCYTES ABSOLUTE COUNT (BEAKER) 0.71 K/ L 0.24-0.36 H (test code = 415) EOSINOPHILS ABSOLUTE COUNT 0.27 K/ L 0.04-0.36 (BEAKER) (test code = 416) BASOPHILS ABSOLUTE COUNT (BEAKER) 0.06 K/ L 0.01-0.08 (test code = 417) IMMATURE GRANULOCYTES-RELATIVE 1 % 0-1 PERCENT (BEAKER) (test code = 2801) Calcium, [id number] 04:56:00 Test Item Value Reference Range Interpretation Comments Calcium, Ion (test code = 1993-3) 1.16 mmol/L 1.12-1.27 pH, Blood (test code = 68248-8) 7.37 [facility] [id number] 04:56:00 Test Item Value Reference Range Interpretation Comments CALCIUM IONIZED (BEAKER) (test 1.16 mmol/L 1.12-1.27 code = 698) PH, BLOOD (BEAKER) (test code = 7.37 1810) POCT-GLUCOSE [id number] 21:18:00 Test Item Value Reference Range Interpretation Comments POC-GLUCOSE METER 333 mg/dL 70-110 H : TESTED A T [facility] 6720 (BEAKER) (test code = [facility], 1538) [address]: Document Clerk/Techni kate ID = [id number] for MAYELA DEMARCO POCT-GLUCOSE [id number] 17:10:00 Test Item Value Reference Range Interpretation Comments POC-GLUCOSE METER 286 mg/dL 70-110 H : TESTED A T [facility] 6720 (BEAKER) (test code = [facility], 1538) [address]: Document Clerk/Techni kate ID = [id number] for [place] [id number] 14:08:00 Test Item Value Reference Range Interpretation Comments PHOSPHORUS (BEAKER) (test code = 2.9 mg/dL 2.3-4.7 604) Document Clerk ID - [id number] 14:08:00 Test Item Value Reference Range Interpretation Comments MAGNESIUM (BEAKER) (test code = 1.9 mg/dL 1.6-2.6 627) Document Clerk ID - NTPBASIC METABOLIC [id number] 14:08:00 Test Item Value Reference Range Interpretation Comments SODIUM (BEAKER) 135 meq/L 136-145 L (test code = 381) POTASSIUM (BEAKER) 4.8 meq/L 3.5-5.1 (test code = 379) CHLORIDE (BEAKER) 107 meq/L 98-107 (test code = 382) CO2 (BEAKER) (test 20 meq/L 22-29 L code = 355) BLOOD UREA NITROGEN 21 mg/dL 7-21 (BEAKER) (test code = 354) CREATININE (BEAKER) 1.23 mg/dL 0.57-1.25 (test code = 358) GLUCOSE RANDOM 206 mg/dL 70-105 H (BEAKER) (test code = 652) CALCIUM (BEAKER) 8.9 mg/dL 8.4-10.2 (test code = 697) EGFR (BEAKER) (test 44 mL/min/1.73 ESTIMA LAYNE GFR IS code = 1092) sq m NOT ACCURATE CREATININE CLEARANCE IN PREDICTING GLOMERULAR FILTRATION RATE . ESTIMATED GFR I S NOT APPLICABLE FOR DIALYSIS PATIEN TS. Document Clerk ID - NTPCALCIUM, [id number] 13:10:00 Test Item Value Reference Range Interpretation Comments CALCIUM IONIZED (BEAKER) (test 1.15 mmol/L 1.12-1.27 code = 698) PH, BLOOD (BEAKER) (test code = 7.37 1810) CBC W/PLT COUNT & AUTO [id number] 13:10:00 Test Item Value Reference Range Interpretation Comments WHITE BLOOD CELL COUNT (BEAKER) 10.5 K/ L 3.5-10.5 (test code = 775) RED BLOOD CELL COUNT (BEAKER) 3.88 M/ L 3.93-5.22 L (test code = 761) HEMOGLOBIN (BEAKER) (test code = 12.2 GM/DL 11.2-15.7 410) HEMATOCRIT (BEAKER) (test code = 36.7 % 34.1-44.9 411) MEAN CORPUSCULAR VOLUME (BEAKER) 94.6 fL 79.4-94.8 (test code = 753) MEAN CORPUSCULAR HEMOGLOBIN 31.4 pg 25.6-32.2 (BEAKER) (test code = 751) MEAN CORPUSCULAR HEMOGLOBIN CONC 33.2 GM/DL 32.2-35.5 (BEAKER) (test code = 752) RED CELL DISTRIBUTION WIDTH 13.0 % 11.7-14.4 (BEAKER) (test code = 412) PLATELET COUNT (BEAKER) (test 204 K/CU MM 150-450 code = 756) MEAN PLATELET VOLUME (BEAKER) 11.1 fL 9.4-12.3 (test code = 754) NUCLEATED RED BLOOD CELLS 0 /100 WBC 0-0 (BEAKER) (test code = 413) NEUTROPHILS RELATIVE PERCENT 66 % (BEAKER) (test code = 429) LYMPHOCYTES RELATIVE PERCENT 26 % (BEAKER) (test code = 430) MONOCYTES RELATIVE PERCENT 6 % (BEAKER) (test code = 431) EOSINOPHILS RELATIVE PERCENT 2 % (BEAKER) (test code = 432) BASOPHILS RELATIVE PERCENT 1 % (BEAKER) (test code = 437) NEUTROPHILS ABSOLUTE COUNT 6.86 K/ L 1.56-6.13 H (BEAKER) (test code = 670) LYMPHOCYTES ABSOLUTE COUNT 2.69 K/ L 1.18-3.74 (BEAKER) (test code = 414) MONOCYTES ABSOLUTE COUNT (BEAKER) 0.58 K/ L 0.24-0.36 H (test code = 415) EOSINOPHILS ABSOLUTE COUNT 0.24 K/ L 0.04-0.36 (BEAKER) (test code = 416) BASOPHILS ABSOLUTE COUNT (BEAKER) 0.05 K/ L 0.01-0.08 (test code = 417) IMMATURE GRANULOCYTES-RELATIVE 0 % 0-1 PERCENT (BEAKER) (test code = 2801) POCT-GLUCOSE [id number] 12:39:00 Test Item Value Reference Range Interpretation Comments POC-GLUCOSE METER 152 mg/dL 70-110 H : TESTED A T [facility] 6720 ([facility]) (test code = [facility], 1538) [address]: Document Clerk/Techni kate ID = [id number] for [place] V[place]A POCT-GLUCOSE [id number] 10:52:00 Test Item Value Reference Range Interpretation Comments POC-GLUCOSE METER 164 mg/dL 70-110 H : TESTED A T [facility] 6720 ([facility]) (test code = [facility], 153) [address]: Document Clerk/Techni kate ID = [id number] for IRINEO ROONEY POC ACTIVATED CLOTTING [id number] 09:42:00 Test Item Value Reference Range Interpretation Comments Activated Clotting Time 219 sec : 74 -137 seconds, (test code = 441) Baseline: TESTED AT [facility] 6720 [facility], 770 30: Document Clerk/Techni kate ID = [id number] for HI ZAINABMARINO [facility]PO[facility][id number] 09:42:00 Test Item Value Reference Range Interpretation Comments ACTIVATED CLOTTING TIME 219 sec : 74 -137 seconds, (BEAKER) (test code = Baseli ne: TESTED AT 441) [facility] [address] [place] [address], 770 30: Document Clerk/Techni kate ID = [id number] for HI MARINO LAMB [id number] 08:51:00 Test Item Value Reference Range Interpretation Comments ACTIVATED CLOTTING TIME 263 sec : 74 -137 seconds, (BEAKER) (test code = Baseli ne: TESTED AT 441) [address], 770 30: Document Clerk/Techni kate ID = [id number] for MARINO OLMEDO SARS-CoV2/RT-PCR (Asymptomatic ONLY)2020-07-19 00:30:00 Test Item Value Reference Range Interpretation Comments SARS-COV2/RT-PCR Negative Not Detected, (test code = Negative, See 40551-0) external report for linked test SARS-COV-2 [facility] KAY PERFORMING LAB (test code = 00098-5) ANTHONY (test code = Negative result for this ANTHONY) test determines that SARS-CoV-2 RNA was not present in the specimen above the Limit of Detection (LOD). However, Negative results do not preclude SARS-CoV-2 infection and should not be used as the sole basis for treatment or patient management decisions. Negative results must be combined with clinical observations, patient history, and epidemiological information. A false negative result may occur if a specimen is improperly collected, transported or handled. A false negative result should be considered if patient's recent exposures or clinical presentation indicate that COVID-19 (SARS-CoV-2) is likely and diagnostic tests for other causes of illness are negative. Re-testing should be considered in cases of suspected false negatives. The limit of detection for this assay is 800 copies/mL. This SARS CoV-2 test is a real-time RT-PCR test intended for the qualitative detection of nucleic acid from SARS-CoV-2 in a nasopharyngeal swab specimen collected from individuals suspected of COVID-19 by their healthcare provider. This test has not been Food and Drug Administration (FDA) cleared or approved. This is a modified version of an approved Emergency Use Authorization (EUA) and is in the process of review by the FDA. Once authorized by the FDA, the issued EUA will be effective until the declaration that circumstances exist justifying the authorization of the emergency use of in vitro diagnostic tests for detection and/or diagnosis of COVID-19 is terminated under Section 564(b)(2) of the Act or the EUA is revoked under Section 564(g) of the Act. Fact Sheet for Healthcare Providers:https://www.Badoo/sites/default/f arnoldo/product/documents/F act_Sheet_HC_Providers_L wbo_AYMJ-IhO-7.pdf Fact Sheet for Healthcare Patients:https://www.Collaaj/sites/default/fi les/product/documents/Fa ct_Sheet_Patients_Lyra_S ARS-CoV-2.pdf Performing Laboratory:[facility]ARS-COV2/RT-PCR ([facility])2020-07-19 00:30:00 Test Item Value Reference Range Interpretation Comments SARS-COV2/RT-PCR (test Negative Not Detected, Negative, code = 7419740) See external report for linked test SARS-COV-2 PERFORMING LAB [facility] KAY (test code = 8264199) Negative result for this test determines that SARS-CoV-2 RNA was not present in the specimen above the Limit of Detection (LOD). However, Negative results do not preclude SARS-CoV-2 infection and should not be used as the sole basis for treatment or patient management decisions. Negative results mustbe combined with clinical observations, patient history, and epidemiological information. A false negative result may occur if a specimen is improperly collected, transported or handled. A false negative result should be considered if patient's recent exposures or clinical presentation indicate that COVID-19 (SARS-CoV-2) is likely and diagnostic tests for other causes of illness are negative. Re-testing should be considered in cases of suspected false negatives.The limit of detection for this assay is 800 copies/mL.This SARS CoV-2 test is a real-time RT-PCR test intended for the qualitative detection of nucleic acid from SARS-CoV-2 in a nasopharyngeal swab specimen collected from individuals susp ected of COVID-19 by their healthcare provider.This test has not been Food and Drug Administration (FDA) cleared or approved. This is a modified version of an approved Emergency Use Authorization (EUA) and is in the process of review by the FDA. Once authorized by the FDA, the issued EUA will be effective until the declaration that circumstances exist justifying the authorization of the emergency use of in vitro diagnostic tests for detection and/or diagnosis of COVID-19 is terminated under Section 564(b)(2) of the Act or the EUA is revoked under Section 564(g) of the Act.Fact Sheet for Healthcare Providers:https://www.Tristar/sites/default/files/product/documents/Fact_Shee c_BX_Fexiglwjy_Xvwx_VWHQ-OrY-9.pdfFact Sheet for Healthcare Patients:https://www.Tristar/sites/default/files/product/ documents/Zbyz_Udtmc_Fedwghgc_Avgj_COYV-OpO-9.pdfPerforming Laboratory:[facility], [place] [address]UFIC-CWFKMES METER 2020-07-18 21:25:00 Test Item Value Reference Range Interpretation Comments POC-GLUCOSE METER 111 mg/dL 70-110 H : TESTED A T [facility] 6720 (BEAKER) (test code = [facility] Deonte [facility], 1538) [address]: Document Clerk/Techni kate ID = [id number] for LORI CALLAHAN POCT-GLUCOSE [id number] 16:05:00 Test Item Value Reference Range Interpretation Comments POC-GLUCOSE METER 265 mg/dL 70-110 H : TESTED A T [facility] 6720 (BEAKER) (test code = [facility] Deonte [facility], 1538) [address]: Document Clerk/Techni kate ID = [id number] for QUEEN WHITING [id number] 15:06:00 Test Item Value Reference Range Interpretation Comments PTT (test code = 57.6 See_Comment H [Automated message] 96321-5) The system [employer] Inside generated this result transmitted ref erence range: 22.5 - 3 6.0 seconds. The reference range was not used to int erpret this result as normal/abnormal . Lab Interpretation (test Abnormal code = 59802-3) [facility]APTT2020-[facility] 15:06:00 Test Item Value Reference Range Interpretation Comments PARTIAL THROMBOPLASTIN TIME 57.6 seconds 22.5-36.0 H (BEAKER) (test code = 760) POCT-GLUCOSE [id number] 11:35:00 Test Item Value Reference Range Interpretation Comments POC-GLUCOSE METER 255 mg/dL 70-110 H : TESTED A T [facility] 6720 (BEAKER) (test code = [facility], 1538) [address]: Document Clerk/Techni kate ID = [id number] for QUEEN WHITING CT, [id number] 09:48:00Unlisted Reason for Exam - Click Yes and Enter Reason Below->Yesextensive DVTUnlisted Reason for Exam->extensive DVT, extent of clot, any cause for extensive DVT?Addendum BeginsREPORT STATUS:A I agree with the nonvascular findings detailedby Dr. Schafer. Additional nonvascular finding includes: 1.5 x 1.4 cm hypodense parapelvic lesion in the anterior right interpolar region with apparent enhancement is suspicious for renal neoplasm such as renal cell carcinoma. Abdomen MRI with and without intravenous contrast (renal mass protocol) may be obtained for further evaluation. Signed: Steven Benites MDReport Verified Date/Time: 07/18/2020 09:48:22 Reading Location: [address] Radiology Reading RoomAddendum EndsFINAL REPORT CT venography of the abdominal aorta and pelvic arteries, 17-Jul-20 INDICATION: This is a 60 year old female with DVT, presents for assessment, to assess the extent of the thrombus in the deep veins. TECHNIQUE: Spiral acquisition before and during intravenous contrast administration using a Siemens multidetector CT scanner. Images were obtained before and during the dynamic passage of intravenous contrast material. Multi-planar 3-D volume-rendering reconstruction was performed using an Oravel workstation interactively by the interpreting physician as well as the 3-D specialist for optimal visualisation of the abdominal aorta, pelvic arteries, and its proximal branches. Please referto the contrast sheet scanned in the EPIC system for the amount and route of contrast given. This exam was performed according to our departmental dose-optimisation programme, which includes automated exposure control, adjustment of the mA and/or kV according to patient size and/or use of iterative reconstruction technique. Dose modulation, iterative reconstruction, and/or weight based adjustment of the mA/kV was utilized to reduce the radiation dose to as low as reasonably achievable. FINDINGS: VASCULAR: The abdominal aorta is normal in course, calibre and contour. Scattered calcification is seen. No ectasia or aneurysmal dilation is identified. There is no evidence of acute aortic pathology, specifically, there is no dissection, intramural hematoma, or contained rupture. Quantitative dimensions of the abdominal aorta are as follows: 2.3 cm at the mesenteric segment; 1.9 cm at the renal segment,; and 1.5 cm at the aortic bifurcation. The common iliac, external iliac, common femoral, and the visualised superficial femoral arteries are widely patent. Minimal calcification is seen in the common iliac level, bilaterally. In the available images, the coeliac axis and SMA are patent. The IMAis also patent. Single left and right renal arteries are seen in eccentric nonobstructive calcific lesion is seen at takeoff of the left renal artery. Single left and right renal veins are seen draining normally into the IVC. Of note, the left renal vein is circumaortic, a normal anatomical variant. No venous thrombus is identified. The associated mesenteric veins also patent with no venous thrombusidentified. In the second dynamic data set, the IVC is well enhanced by contrast with no venous thrombus identified. This examination, this study is negative for May Thurner syndrome where at the distal left common unit vein is not being compressed by the vertebral body and the origin of the right common iliac artery. In the right, the right common iliac, right external iliac and the right common femoral vein are seen to be patent. By Hounsfield unit measurement, adequate enhancement is seen, and nothrombus is identified. In contrary, persistent reduction in enhancement is identified in the LEFT common femoral vein and the left external iliac vein when compared to the right counterpart, raised concern for venous thrombus despite the veins are not dilated and no obvious inflammatory changes are seen. Adequate enhancement is identified in the left common iliac vein indicating the absence of thrombus. NON-VASCULAR: Lung bases are unremarkable. No pleural effusion is identified. In the abdomen, the liver and spleen appears unremarkable. The liver edge is smooth. No abnormal enhancing structure isidentified. Patient is post cholecystectomy. The adrenal glands are not enlarged. The pancreas appears unremarkable. No acute renal pathology seen and no hydronephrosis or perirenal fluid collection is identified. Subcentimeter hypodensities are seen in the left kidney, too small to characterise. Hypodensities are seen in the right kidney with no enhancement after contrast demonstration indicating simple in nature. The largest one is identified at image 101, measure 12 mm in diameter. Bowel is not well assessed by CT angiography as enteric contrast is not given. No obvious bowel dilation is identified. The uterus is present. At least 3-4 uterine fibroids are seen, and the largest one at image 23 measures at least 5.6 x 5.1 cm in diameter. The uterus is not compressing the adjacent pelvic veins. No abnormal and axial mass is seen. The bladder appears grossly unremarkable. No free air or free fluid is identified abdomen and pelvis and no significant retroperitoneal adenopathy is identified. Small lymph nodes are seen in both groins, considered nonspecific in nature. In the bony windows, no acute bony pathology is identified. Some degenerative changes is noted. Sclerotic focus is identified in the right femoral head at image 234, suggesting bone island. Small lymph nodes are seen in both groins with fatty hilum, consider nonspecific in nature. CONCLUSIONS: 1. The abdominal aorta is normal in course, calibre and contour. There is no evidence of acute aortic pathology, specifically, there is no dissection, intramural hematoma, or contained rupture. Quantitative dimension of the abdominalaorta are as noted. The pelvic arteries, bilaterally, widely patent. 2. Patient has known DVT. 3. The IVC is unremarkable; no venous thrombus is identified. The right pelvic veins are determined to be u nremarkable. Suboptimal enhancement is identified in the LEFT EXTERNAL ILIAC and the LEFT COMMON FEMORAL vein, when compared to the adjacent right pelvic veins, suggesting the presence of venous thrombus, despite the absence of obvious inflammatory changes of venous dilation. The left common iliac vein has adequate enhancement and no thrombus is present. This study is negative for May Thurner syndrome. The uterus is not compressing the pelvic veins. 4. Other findings as described above. 5. An addendum will be dictated regarding the non-vascular findings by the Pick Pulling Machine Operator Radiologist. Pertinent findings were discussed with the Pick Pulling Machine Operator Chain Mender at the time of dictation. Signed: Hanh Trenton MDReport Verified Date/Time: 07/17/2020 17:23:49 Reading Location: [address] Reading Room CALCIUM, [id number] 08:20:00 Test Item Value Reference Range Interpretation Comments CALCIUM IONIZED (BEAKER) (test 1.15 mmol/L 1.12-1.27 code = 698) PH, BLOOD (BEAKER) (test code = 7.34 1810) POCT-GLUCOSE [id number] 08:01:00 Test Item Value Reference Range Interpretation Comments POC-GLUCOSE METER 184 mg/dL 70-110 H : TESTED A T [facility] 6720 (BEAKER) (test code = [place], 1538) [id number]: Document Clerk/Techni kate ID = [id number] for QUEEN WHITING CBC W/PLT COUNT & AUTO [id number] 07:17:00 Test Item Value Reference Range Interpretation Comments WHITE BLOOD CELL COUNT (BEAKER) 9.0 K/ L 3.5-10.5 (test code = 775) RED BLOOD CELL COUNT (BEAKER) 3.47 M/ L 3.93-5.22 L (test code = 761) HEMOGLOBIN (BEAKER) (test code = 10.6 GM/DL 11.2-15.7 L 410) HEMATOCRIT (BEAKER) (test code = 32.8 % 34.1-44.9 L 411) MEAN CORPUSCULAR VOLUME (BEAKER) 94.5 fL 79.4-94.8 (test code = 753) MEAN CORPUSCULAR HEMOGLOBIN 30.5 pg 25.6-32.2 (BEAKER) (test code = 751) MEAN CORPUSCULAR HEMOGLOBIN CONC 32.3 GM/DL 32.2-35.5 (BEAKER) (test code = 752) RED CELL DISTRIBUTION WIDTH 13.0 % 11.7-14.4 (BEAKER) (test code = 412) PLATELET COUNT (BEAKER) (test 181 K/CU MM 150-450 code = 756) MEAN PLATELET VOLUME (BEAKER) 11.6 fL 9.4-12.3 (test code = 754) NUCLEATED RED BLOOD CELLS 0 /100 WBC 0-0 (BEAKER) (test code = 413) NEUTROPHILS RELATIVE PERCENT 61 % (BEAKER) (test code = 429) LYMPHOCYTES RELATIVE PERCENT 28 % (BEAKER) (test code = 430) MONOCYTES RELATIVE PERCENT 7 % (BEAKER) (test code = 431) EOSINOPHILS RELATIVE PERCENT 3 % (BEAKER) (test code = 432) BASOPHILS RELATIVE PERCENT 1 % (BEAKER) (test code = 437) NEUTROPHILS ABSOLUTE COUNT 5.42 K/ L 1.56-6.13 (BEAKER) (test code = 670) LYMPHOCYTES ABSOLUTE COUNT 2.55 K/ L 1.18-3.74 (BEAKER) (test code = 414) MONOCYTES ABSOLUTE COUNT (BEAKER) 0.63 K/ L 0.24-0.36 H (test code = 415) EOSINOPHILS ABSOLUTE COUNT 0.29 K/ L 0.04-0.36 (BEAKER) (test code = 416) BASOPHILS ABSOLUTE COUNT (BEAKER) 0.05 K/ L 0.01-0.08 (test code = 417) IMMATURE GRANULOCYTES-RELATIVE 0 % 0-1 PERCENT (BEAKER) (test code = 2801) [id number] 07:07:00 Test Item Value Reference Range Interpretation Comments PHOSPHORUS (BEAKER) (test code = 3.0 mg/dL 2.3-4.7 604) Document Clerk ID - [id number] 07:07:00 Test Item Value Reference Range Interpretation Comments MAGNESIUM (BEAKER) (test code = 1.8 mg/dL 1.6-2.6 627) Document Clerk ID - EDASICOMPREHENSIVE METABOLIC [id number] 07:07:00 Test Item Value Reference Range Interpretation Comments TOTAL PROTEIN 6.7 gm/dL 6.0-8.3 (BEAKER) (test code = 770) ALBUMIN (BEAKER) 3.7 g/dL 3.5-5.0 (test code = 1145) ALKALINE PHOSPHATASE 110 U/L 40-150 (BEAKER) (test code = 346) BILIRUBIN TOTAL 0.6 mg/dL 0.2-1.2 (BEAKER) (test code = 377) SODIUM (BEAKER) (test 135 meq/L 136-145 L code = 381) POTASSIUM (BEAKER) 4.1 meq/L 3.5-5.1 (test code = 379) CHLORIDE (BEAKER) 107 meq/L 98-107 (test code = 382) CO2 (BEAKER) (test 20 meq/L 22-29 L code = 355) BLOOD UREA NITROGEN 30 mg/dL 7-21 H (BEAKER) (test code = 354) CREATININE (BEAKER) 1.17 mg/dL 0.57-1.25 (test code = 358) GLUCOSE RANDOM 137 mg/dL 70-105 H (BEAKER) (test code = 652) CALCIUM (BEAKER) 8.9 mg/dL 8.4-10.2 (test code = 697) AST (SGOT) (BEAKER) 13 U/L 5-34 (test code = 353) ALT (SGPT) (BEAKER) 10 U/L 6-55 (test code = 347) EGFR (BEAKER) (test 47 mL/min/1.73 ESTIMA LAYNE GFR IS code = 1092) sq m NOT ACCURATE CREATININE CLEARANCE IN PREDICTING GLOMERULAR FILTRATION RATE . ESTIMATED GFR I S NOT APPLICABLE FOR DIALYSIS PATIEN TS. Document Clerk ID - [id number] 06:26:00 Test Item Value Reference Range Interpretation Comments PARTIAL THROMBOPLASTIN TIME 60.2 seconds 22.5-36.0 H (BEAKER) (test code = 760) While on warfarin.Daily Prothrombin time/INR while on [id number] 06:24:00 Test Item Value Reference Interpretation Comments Range Protime (test code = 14.2 See_Comment [Autom ated 3322-2) message] The system which generated this result transmitted reference range : 11.9 - 14.2 seconds. The reference range was not used to interpret this result as normal/abnormal . INR (test code = 1.14 See_Comment [Automated 3761-6) message] The system which generated this result transmitted reference range : <=5.90. The reference range was not used to interpret this result as normal/abnormal . ANTHONY (test code = Effective 04/26/2019: ANTHONY) PT Reference Range ChangeNew: 11.9-14.2 Previous: 11.7-14.7 RECOMMENDED COUMADIN/WARFARIN INR THERAPY RANGESSTANDARD DOSE: 2.0-3.0 Includes: PROPHYLAXIS for venous thrombosis, systemic embolization; TREATMENT for venous thrombosis and/or pulmonary embolus.HIGH RISK: Target INR is 2.5-3.5 for patients wiht mechanical heart valves. While on warfarin. Lab Interpretation Normal (test code = 53571-5) [facility]anoPROTHROMBIN TIME/[id number] 06:24:00 Test Item Value Reference Range Interpretation Comments PROTIME (BEAKER) (test code = 14.2 seconds 11.9-14.2 759) INR (BEAKER) (test code = 370) 1.14 <=5.90 Effective 04/26/2019: PT Reference Range ChangeNew: 11.9-14.2 Previous: 11.7- 14.7RECOMMENDED COUMADIN/WARFARIN INR THERAPY RANGESSTANDARD DOSE: 2.0-3.0 Includes: PROPHYLAXIS for venous thrombosis, systemic embolization; TREATMENT for venous thrombosis and/or pulmonary embolus.HIGH RISK: Target INR is2.5-3.5 for patients wiht mechanical heart valves.While on warfarin.[id number] 23:06:00 Test Item Value Reference Range Interpretation Comments PARTIAL THROMBOPLASTIN TIME 49.8 seconds 22.5-36.0 H (BEAKER) (test code = 760) [id number] 21:00:00 Test Item Value Reference Range Interpretation Comments PARTIAL THROMBOPLASTIN TIME 117.2 seconds 22.5-36.0 H (BEAKER) (test code = 760) POCT-GLUCOSE [id number] 20:08:00 Test Item Value Reference Range Interpretation Comments POC-GLUCOSE METER 182 mg/dL 70-110 H : TESTED A T [facility] 6720 (BEAKER) (test code = [place], 1538) [address]: Document Clerk/Techni kate ID = [id number] for LUCIE OLIVEIRAA CT abdomen/pelvis without & with IV [id number] 17:23:00Interface, External Ris In - 07/18/2020 9:50 AM CDTAddendum BeginsREPORT STATUS:A I agree with the nonvascular findings detailed by Dr. Schafer. Additional nonvascular finding includes: 1.5 x 1.4 cm hypodense parapelvic lesion in the anterior right interpolar region with apparent enhancement is suspicious for renal neoplasm such as renal cell carcinoma. Abdomen MRI with and without intravenous contrast (renal mass protocol) may be obtained for further evaluation. Signed: Steven Benites MDReport Verified Date/Time: 07/18/2020 09:48:22 Reading Location: [address] Radiology Reading RoomAddendum EndsFINAL REPORT CT venography of the abdominal aorta and pelvic arteries, 17-Jul-20 INDICATION: This is a 60 year old female with DVT, presents for assessment, to assess the extent of the thrombus in the deep veins. TECHNIQUE: Spiral acquisition before andduring intravenous contrast administration using a Siemens multidetector CT scanner. Images were obtained before and during the dynamic passage of intravenous contrast material. Multi- planar 3-D volume-rendering reconstruction was performed using an independent workstation interactively by the interpreting physician as well as the 3-D specialist for optimal visualisation of the abdominal aorta, pelvic arteries, and its proximal branches. Please refer to the contrast sheet scanned in the EPIC systemfor the amount and route of contrast given. This exam was performed according to our departmental dose-optimisation programme, which includes automated exposure control, adjustment of the mA and/or kV according to patient size and/or use of iterative reconstruction technique. Dose modulation, iterative reconstruction, and/or weight based adjustment of the mA/kV was utilized to reduce the radiation dose to as low as reasonably achievable. FINDINGS: VASCULAR: The abdominal aorta is normal in course, calibre and contour. Scattered calcification is seen. No ectasia or aneurysmal dilation is identified. There is no evidence of acute aortic pathology, specifically, there is no dissection, intramural hematoma, or contained rupture. Quantitative dimensions of the abdominal aorta are as follows: 2.3 cm at the mesenteric segment; 1.9 cm at the renal segment,; and 1.5 cm at the aortic bifurcation. The common iliac, external iliac, common femoral, and the visualised superficial femoral arteries are widely patent. Minimal calcification is seen in the common iliac level, bilaterally. In the available images, the coeliac axis and SMA are patent. The SERGE is also patent. Single left and right renal arteries are seen in eccentric nonobstructive calcific lesion is seen at takeoff of the left renal artery. Single left and right renal veins are seen draining normally into the IVC. Of note, the left renalvein is circumaortic, a normal anatomical variant. No venous thrombus is identified. The associated mesenteric veins also patent with no venous thrombus identified. In the second dynamic data set, the IVC is well enhanced by contrast with no venous thrombus identified. This examination, this study is negative for May Thurner syndrome where at the distal left common unit vein is not being compressed by the vertebral body and the origin of the right common iliac artery. In the right, the right common iliac, right external iliac and the right common femoral vein are seen to be patent. By Hounsfield uni t measurement, adequate enhancement is seen, and no thrombus is identified. In contrary, persistent reduction in enhancement is identified in the LEFT common femoral vein and the left external iliac vein when compared to the right counterpart, raised concern for venous thrombus despite the veins are not dilated and no obvious inflammatory changes are seen. Adequate enhancement is identified in the left common iliac vein indicating the absence of thrombus. NON-VASCULAR: Lung bases are unremarkable. No pleural effusion is identified. In the abdomen, the liver and spleen appears unremarkable. The liver edge is smooth. No abnormal enhancing structure is identified. Patient is post cholecystectomy. The adrenal glands are not enlarged. The pancreas appears unremarkable. No acute renal pathology seen and no hydronephrosis or perirenal fluid collection is identified. Subcentimeter hypodensities are seen in the left kidney, too small to characterise. Hypodensities are seen in the right kidney with no enhancement after contrast demonstration indicating simple in nature. The largest one is identified atimage 101, measure 12 mm in diameter. Bowel is not well assessed by CT angiography as enteric contrast is not given. No obvious bowel dilation is identified. The uterus is present. At least 3-4 uterine fibroids are seen, and the largest one at image 23 measures at least 5.6 x 5.1 cm in diameter. The uterus is not compressing the adjacent pelvic veins. No abnormal and axial mass is seen. The bladder appears grossly unremarkable. No free air or free fluid is identified abdomen and pelvis and no significant retroperitoneal adenopathy is identified. Small lymph nodes are seen in both groins, considerednonspecific in nature. In the bony windows, no acute bony pathology is identified. Some degenerativechanges is noted. Sclerotic focus is identified in the right femoral head at image 234, suggesting bone island. Small lymph nodes are seen in both groins with fatty hilum, consider nonspecific in nature. CONCLUSIONS: 1. The abdominal aorta is normal in course, calibre and contour. There is no evidence of acute aortic pathology, specifically, there is no dissection, intramural hematoma, or contained rupture. Quantitative dimension of the abdominal aorta are as noted. The pelvic arteries, bilaterally, widely patent. 2. Patient has known DVT. 3. The IVC is unremarkable; no venous thrombus is identified. The right pelvic veins are determined to be unremarkable. Suboptimal enhancement is identified in the LEFT EXTERNAL ILIAC and the LEFT COMMON FEMORAL vein, when compared to the adjacent right pelvic veins, suggesting the presence of venous thrombus, despite the absence of obvious inflammatory changes of venous dilation. The left common iliac vein has adequate enhancement and no thrombus is present. This study is negative for May Thurner syndrome. The uterus is not compressing the pelvic veins. 4. Other findings as described above. 5. An addendum will be dictated regarding the non- vascular findings by the Pick Pulling Machine Operator Radiologist. Pertinent findings were discussed with the Pick Pulling Machine Operator Chain Mender at the time of dictation. Signed: Trenton Schafer Verified Date/Time: 07/17/2020 17:23:49 Reading Location: [place] [address] [address] Reading Room [facility] 2020-07-17 15:38:00 Test Item Value Reference Range Interpretation Comments POC-GLUCOSE METER 233 mg/dL 70-110 H : [facility] (test code = [facility]) [address]: Document Clerk/Techni kate ID = [id number] for QUEEN WHITING [id number] 12:55:00 Test Item Value Reference Range Interpretation Comments PARTIAL THROMBOPLASTIN TIME 98.3 seconds 22.5-36.0 H (AKER) (test code = 760) POCT-GLUCOSE [id number] 11:33:00 Test Item Value Reference Range Interpretation Comments POC-GLUCOSE METER 253 mg/dL 70-110 H : TESTED A T [facility] 6720 ([facility]) (test code = [facility], 1538) [address]: Document Clerk/Techni kate ID = [id number] for QUEEN WHITING ECG 12 [id number] 08:31:32Interface, External Ris In - 07/17/2020 8:31 AM CDTVentricular Rate 69 BPMAtrial Rate 69 BPMP-R Interval 188 msQRS Duration 120 msQ-T Interval 444 msQTC Calculation(Bazett) 475 msP [place] 12 degreesR [place] -48 degreesT [place] 84 degreesSinus rhythm with frequent Premature ventricular complexesLeft axis deviationLeft bundle branch blockAbnormal ECGWhen compared with ECG of 25-FEB-2017 07:18,Premature ventricular complexes are now PresentQRS duration has decreasedAnterolateral infarct is now PresentT waveinversion no longer evident in Inferior leadsLeft axis deviation now presentConfirmed by Michael Coyle ([id number]) on 07/17/2020 8:31:30 [facility] [id number] 07:41:00 Test Item Value Reference Range Interpretation Comments POC-GLUCOSE METER 203 mg/dL 70-110 H : TESTED A T [facility] 6720 (BEAKER) (test code = [place], 1538) [address]: Document Clerk/Techni kate ID = [id number] for [place] BRIAN LEROY Creatine Kinase (CK)2020-07-17 07:18:00 Test Item Value Reference Range Interpretation Comments Total CK (test code = 48 U/L 29-200 2157-6) ANTHONY (test code = ANTHONY) Document Clerk ID - NTP Lab Interpretation (test Normal code = 66132-1) [facility]anoUric [id number] 07:18:00 Test Item Value Reference Range Interpretation Comments Uric Acid (test code = 9.5 mg/dL 2.6-7.2 H 3084-1) ANTHONY (test code = ANTHONY) Document Clerk ID - NTP Lab Interpretation (test Abnormal code = 80935-0) [facility]anoURIC [id number] 07:18:00 Test Item Value Reference Range Interpretation Comments URIC ACID (BEAKER) (test code = 9.5 mg/dL 2.6-7.2 H 773) Document Clerk ID - [id number] 07:18:00 Test Item Value Reference Range Interpretation Comments MAGNESIUM (BEAKER) (test code = 1.8 mg/dL 1.6-2.6 627) Document Clerk ID - [id number] 07:18:00 Test Item Value Reference Range Interpretation Comments PHOSPHORUS (BEAKER) (test code = 3.2 mg/dL 2.3-4.7 604) Document Clerk ID - NTPCOMPREHENSIVE METABOLIC [id number] 07:18:00 Test Item Value Reference Range Interpretation Comments TOTAL PROTEIN 6.9 gm/dL 6.0-8.3 (BEAKER) (test code = 770) ALBUMIN (BEAKER) 3.8 g/dL 3.5-5.0 (test code = 1145) ALKALINE PHOSPHATASE 115 U/L 40-150 (BEAKER) (test code = 346) BILIRUBIN TOTAL 0.7 mg/dL 0.2-1.2 (BEAKER) (test code = 377) SODIUM (BEAKER) (test 134 meq/L 136-145 L code = 381) POTASSIUM (BEAKER) 4.2 meq/L 3.5-5.1 (test code = 379) CHLORIDE (BEAKER) 104 meq/L 98-107 (test code = 382) CO2 (BEAKER) (test 22 meq/L 22-29 code = 355) BLOOD UREA NITROGEN 46 mg/dL 7-21 H (BEAKER) (test code = 354) CREATININE (BEAKER) 1.60 mg/dL 0.57-1.25 H (test code = 358) GLUCOSE RANDOM 219 mg/dL 70-105 H (BEAKER) (test code = 652) CALCIUM (BEAKER) 8.7 mg/dL 8.4-10.2 (test code = 697) AST (SGOT) (BEAKER) 9 U/L 5-34 (test code = 353) ALT (SGPT) (BEAKER) 9 U/L 6-55 (test code = 347) EGFR (BEAKER) (test 33 mL/min/1.73 ESTIMA LAYNE GFR IS code = 1092) sq m NOT ACCURATE CREATININE CLEARANCE IN PREDICTING GLOMERULAR FILTRATION RATE . ESTIMATED GFR I S NOT APPLICABLE FOR DIALYSIS PATIEN TS. Document Clerk ID - NTPCREATINE KINASE (CK)2020-07-17 07:18:00 Test Item Value Reference Range Interpretation Comments CREATINE KINASE TOTAL (BEAKER) (test 48 U/L 29-200 code = 380) Document Clerk ID - NTPB-TYPE NATRIURETIC FACTOR (BNP)2020-07-17 07:05:00 Test Item Value Reference Range Interpretation Comments B-TYPE NATRIURETIC PEPTIDE (BEAKER) 55 pg/mL 0-100 (test code = 700) Document Clerk ID - NTPCALCIUM, [id number] 06:53:00 Test Item Value Reference Range Interpretation Comments CALCIUM IONIZED (BEAKER) (test 1.17 mmol/L 1.12-1.27 code = 698) PH, BLOOD (BEAKER) (test code = 7.33 1810) [id number] 06:41:00 Test Item Value Reference Range Interpretation Comments PARTIAL THROMBOPLASTIN TIME 84.5 seconds 22.5-36.0 H (BEAKER) (test code = 760) While on warfarin.PROTHROMBIN TIME/[id number] 06:40:00 Test Item Value Reference Range Interpretation Comments PROTIME (BEAKER) (test code = 14.6 seconds 11.9-14.2 H 759) INR (BEAKER) (test code = 370) 1.17 <=5.90 Effective 04/26/2019: PT Reference Range ChangeNew: 11.9-14.2 Previous: 11.7- 14.7RECOMMENDED COUMADIN/WARFARIN INR THERAPY RANGESSTANDARD DOSE: 2.0-3.0 Includes: PROPHYLAXIS for venous thrombosis, systemic embolization; TREATMENT for venous thrombosis and/or pulmonary embolus.HIGH RISK: Target INR is2.5-3.5 for patients wiht mechanical heart valves.While on warfarin.CBC W/PLT COUNT & AUTO [id number] 06:34:00 Test Item Value Reference Range Interpretation Comments WHITE BLOOD CELL COUNT (BEAKER) 8.9 K/ L 3.5-10.5 (test code = 775) RED BLOOD CELL COUNT (BEAKER) 3.54 M/ L 3.93-5.22 L (test code = 761) HEMOGLOBIN (BEAKER) (test code = 10.8 GM/DL 11.2-15.7 L 410) HEMATOCRIT (BEAKER) (test code = 33.0 % 34.1-44.9 L 411) MEAN CORPUSCULAR VOLUME (BEAKER) 93.2 fL 79.4-94.8 (test code = 753) MEAN CORPUSCULAR HEMOGLOBIN 30.5 pg 25.6-32.2 (BEAKER) (test code = 751) MEAN CORPUSCULAR HEMOGLOBIN CONC 32.7 GM/DL 32.2-35.5 (BEAKER) (test code = 752) RED CELL DISTRIBUTION WIDTH 12.7 % 11.7-14.4 (BEAKER) (test code = 412) PLATELET COUNT (BEAKER) (test 185 K/CU MM 150-450 code = 756) MEAN PLATELET VOLUME (BEAKER) 10.5 fL 9.4-12.3 (test code = 754) NUCLEATED RED BLOOD CELLS 0 /100 WBC 0-0 (BEAKER) (test code = 413) NEUTROPHILS RELATIVE PERCENT 62 % (BEAKER) (test code = 429) LYMPHOCYTES RELATIVE PERCENT 27 % (BEAKER) (test code = 430) MONOCYTES RELATIVE PERCENT 8 % (BEAKER) (test code = 431) EOSINOPHILS RELATIVE PERCENT 3 % (BEAKER) (test code = 432) BASOPHILS RELATIVE PERCENT 1 % (BEAKER) (test code = 437) NEUTROPHILS ABSOLUTE COUNT 5.50 K/ L 1.56-6.13 (BEAKER) (test code = 670) LYMPHOCYTES ABSOLUTE COUNT 2.39 K/ L 1.18-3.74 (BEAKER) (test code = 414) MONOCYTES ABSOLUTE COUNT (BEAKER) 0.68 K/ L 0.24-0.36 H (test code = 415) EOSINOPHILS ABSOLUTE COUNT 0.27 K/ L 0.04-0.36 (BEAKER) (test code = 416) BASOPHILS ABSOLUTE COUNT (BEAKER) 0.06 K/ L 0.01-0.08 (test code = 417) IMMATURE GRANULOCYTES-RELATIVE 0 % 0-1 PERCENT (BEAKER) (test code = 2801) [id number] 23:42:00 Test Item Value Reference Range Interpretation Comments PARTIAL THROMBOPLASTIN TIME 68.6 seconds 22.5-36.0 H (BEAKER) (test code = 760) POCT-GLUCOSE [id number] 20:54:00 Test Item Value Reference Range Interpretation Comments POC-GLUCOSE METER 206 mg/dL 70-110 H : [facility] ([facility]) (test code = [place], 1538) [address]: Document Clerk/Techni kate ID = [id number] for BELLA, FREDDIE TTE U/S, RENAL, [id number] 20:34:00Reason for exam:->AKIFINAL REPORT Ultrasound of the Kidneys Clinical History: ROBERT Comparison: None. Discussion: Sonographic evaluation of the kidneys was performed. Right kidney: 10.5 x 4.2 x 4 cm,with cortical thickness of 0.9 cm. Normal cortical echogenicity. No mass. No shadowing calculus. No hydronephrosis. Left kidney: 11.1 x 5 x 4.3 cm, with cortical thickness of 1.5 cm. Normal cortical echogenicity. No mass. No shadowing calculus. No hydronephrosis. Limited doppler evaluation of bilateral main renal arteries and veins demonstrate patency. Bladder: Underdistended but otherwise unremarkable. Impression: No hydronephrosis. Signed: Kiki Galo Verified Date/Time: 07/16/2020 20:34:22 US renal [id number] 20:34:00Interface, External Ris In - 07/16/2020 8:36 PM CDTFINAL REPORT Ultrasound of the Kidneys Clinical History: ROBERT Comparison: None. Discussion: Sonographic evaluation of the kidneys was performed. Right kidney: 10.5 x 4.2 x 4 cm, with cortical thickness of 0.9 cm. Normal cortical echogenicity. No mass. No shadowing calculus. No hydronephrosis. Left kidney: 11.1 x 5 x 4.3 cm, with cortical thickness of 1.5 cm. Normal cortical echogenicity. No mass. No shadowing calculus. No hydronephrosis. Limited doppler evaluation of bilateral main renal arteries and veins demonstrate patency. Bladder: Underdistended but otherwise unremarkable. Impression: No hydronephrosis. Signed: Kiki Galo Verified Date/Time: 07/16/2020 20:34:22 [facility] Creatinine, random [id number] 18:48:00 Test Item Value Reference Range Interpretation Comments Creatinine, Ur 180.8 mg/dL (test code = 2161-8) ANTHONY (test code = Reference Range: No ANTHONY) NormalsOperator ID - [facility]anoProtein, random [id number] 18:48:00 Test Item Value Reference Range Interpretation Comments Protein, Urine (test code = 27 mg/dL 0-14 H 2888-6) ANTHONY (test code = ANTHONY) Document Clerk ID - Lab Interpretation (test Abnormal code = 85152-1) [facility]odium, random [id number] 18:48:00 Test Item Value Reference Range Interpretation Comments Sodium Urine (test 28 meq/L code = 2955-3) ANTHONY (test code = Reference Range: No ANTHONY) NormalsOperator ID - [facility]anoCREATININE, RANDOM [id number] 18:48:00 Test Item Value Reference Range Interpretation Comments CREATININE URINE (BEAKER) (test 180.8 mg/dL code = 375) Reference Range: No NormalsOperator ID - ASPROTEIN, RANDOM [id number] 18:48:00 Test Item Value Reference Range Interpretation Comments PROTEIN, URINE (BEAKER) (test code = 27 mg/dL 0-14 H 1569) Document Clerk ID - ASSODIUM, RANDOM [id number] 18:48:00 Test Item Value Reference Range Interpretation Comments SODIUM URINE (BEAKER) (test code = 28 meq/L 243) Reference Range: No NormalsOperator ID - ASUrinalysis w/[id number] 17:19:00 Test Item Value Reference Range Interpretation Comments Color, UA (test code Yellow = 5778-6) Clarity, UA (test Clear code = 5767-9) Specific [place], UA 1.019 1.001-1.035 (test code = 5811-5) pH, UA (test code = 5.5 5.0-8.0 5803-2) Protein, UA (test 10 mg/dL Negative A code = 87662-4) Glucose, UA (test Negative Negative code = 365) Ketones, UA (test Negative Negative code = 2514-8) Bilirubin, UA (test Negative Negative code = 52024-9) Blood, UA (test code Negative Negative = 22641-9) Nitrite, UA (test Negative Negative code = 5802-4) Leukocytes, UA (test Negative Negative code = 5799-2) Urobilinogen, UA 0.2 mg/dL 0.2-1 (test code = 07316-4) RBC, UA (test code = <1 See_Comment [Autom ated 94897-0) message] The system which generated this result transmit layne reference range : /HPF. The reference range was not used to interpret this result as normal/abnormal . WBC, UA (test code = 1 See_Comment [Autom ated 5821-4) message] The system which generated this result transmit layne reference range : /HPF. The reference range was not used to interpret this result as normal/abnormal . Bacteria, UA (test Few code = 52871-3) Squam Epithel, UA 4 See_Comment [Automate d (test code = 93709-9) messag e] The system which generated this result transmit layne reference range : /HPF. The reference range was not used to interpret this result as normal/abnormal . Hyaline Casts, UA 7 See_Comment [Automate d (test code = 13884-7) messag e] The system which generated this result transmit layne reference range : /LPF. The reference range was not used to interpret this result as normal/abnormal . Specimen Source (test code = 2795) ANTHONY (test code = ANTHONY) Document Clerk ID - [auto]Document Clerk ID - nidia Lab Interpretation Abnormal (test code = 41781-5) [facility] [id number] 17:19:00 Test Item Value Reference Range Interpretation Comments COLOR (BEAKER) (test code = 470) Yellow CLARITY (BEAKER) (test code = 469) Clear SPECIFIC GRAVITY UA (BEAKER) (test 1.019 1.001-1.035 code = 468) PH UA (BEAKER) (test code = 467) 5.5 5.0-8.0 PROTEIN UA (BEAKER) (test code = 10 mg/dL Negative A 464) GLUCOSE UA (BEAKER) (test code = Negative Negative 365) KETONES UA (BEAKER) (test code = Negative Negative 371) BILIRUBIN UA (BEAKER) (test code = Negative Negative 462) BLOOD UA (BEAKER) (test code = 461) Negative Negative NITRITE UA (BEAKER) (test code = Negative Negative 465) LEUKOCYTE ESTERASE UA (BEAKER) Negative Negative (test code = 466) UROBILINOGEN UA (BEAKER) (test code 0.2 mg/dL 0.2-1.0 = 463) RBC UA (BEAKER) (test code = 519) < /HPF WBC UA (BEAKER) (test code = 520) 1 /HPF BACTERIA (BEAKER) (test code = 517) Few SQUAMOUS EPITHELIAL (BEAKER) (test 4 /HPF code = 516) HYALINE CASTS (BEAKER) (test code = 7 /LPF 514) SOURCE(BEAKER) (test code = 2795) Document Clerk ID - [auto]Document Clerk ID - [id number] 17:07:00 Test Item Value Reference Range Interpretation Comments PARTIAL THROMBOPLASTIN TIME 88.9 seconds 22.5-36.0 H (BEAKER) (test code = 760) POCT-GLUCOSE [id number] 16:59:00 Test Item Value Reference Range Interpretation Comments POC-GLUCOSE METER 199 mg/dL 70-110 H : TESTED A T [facility] 6720 (BEAKER) (test code = MENA Clemons [facility], 1538) [address]: Document Clerk/Techni kate ID = [id number] for BAHMAN KNAPP RAD, CHEST, 1 VIEW, NON [id number] 15:56:00Reason for exam:->Fluid overloadShould this be performed at the bedside?->YesFINAL REPORT CLINICAL HISTORY: Fluid overload TECHNIQUE: 1 view of the chest. COMPARISON: 02/25/2017 IMPRESSION: There are no focal infiltrates or effusions. The cardiomediastinal silhouette is magnified by technique. The osseous structures appear intact. Signed: Petar Sidhu MDReport Verified Date/Time: 07/16/2020 15:56:06 Reading Location: [facility] Reading Room XR chest 1 view portable / [id number] 15:56:00Interface, External Ris In - 07/16/2020 3:58 PM CDTFINAL REPORT CLINICAL HISTORY: Fluid overload TECHNIQUE: 1 view of the chest. COMPARISON: 02/25/2017 IMPRESSION: There are no focal infiltrates or effusions. The cardiomediastinal silhouette is magnified by technique. The osseous structures appear intact. Signed: Petar Sidhu MDReport Verified Date/Time: 07/16/2020 15:56:06 Reading Location: [facility] Reading [facility] [id number] 13:35:00 Test Item Value Reference Range Interpretation Comments POC-GLUCOSE METER 249 mg/dL 70-110 H : TESTED A T [facility] 6720 (BEAKER) (test code = [place], 1538) [address]: Document Clerk/Techni kate ID = [id number] for YENIFER MOSLEY 2D Echo W/Doppler(CW/PW/Color)2020-07-16 13:16:55Ejection FractionSLEH ECHO HEARTLAB MKCKESSON CPACSInterface, External Ris In - 07/16/2020 1:17 PM C DTTransthoracic Echocardiography Report (TTE) Demographics Patient Name SHELTON, Date of Study 07/16/2020 AME Gender Female Visit Number [id number] Race Unknown Room Number 914 Number Date of 1960 Referring Tonie Melendez MD Physician Age 60 year(s) Shake Out Worker Max Rascon, SANGEETHA, RDCS,RVT,RDMS Interpreting Michael Coyle MD Physician Procedure Type of Study TTE procedure:2DECHO W DOPPLER(CW/PW/COLOR) (Routine) Indications:Shortness of breath.Clinical HistoryHGB 11.4HCT 34.7 %DM, HTN, REMOTE HX R. DVT (2017), OBESE, MARITZA, CHRONIC HFrEFContrast Medium: Definity.Height: 63 inches Weight: 112.04 kg (247 lbs) BSA: 2.12 m^2 BMI: 43.75kg/m^2HR: 71 bpm BP: 120/60 mmHg Summary 1. The left ventricle is chamber size (by vol index) is normal with no evidence of LV hypertrophy. LVEF by Lara's method of disk assessment is mildly reduced (40- 44%) . Grade 2 diastolic dysfunction (moderately increased LA pressure). 2. Mild right ventricular dilation with normal systolic function. 3. LA size is moderately enlarged . 4. No significant valvular abnormality. 5. Estimated peak systolic PA pressure is 30-35 mmHg (normal range) . Previous Study In comparison with the prior exam11/2014 the following changes are noted: EF is now 40-44% . Signature Findings Rhy thm/BP Frequent ventricular ectopic beats present. Left Ventricle The left ventricle is chamber size (by vol index) is normal. No evidence of LV hypertrophy. All of the LV segments are mildly hypokinetic . LVEF by Lara's method of disk assessment is mildly reduced (40-44%) . Grade 2 diastolic dysfunction (moderately increased LA pressure). Left Atrium LA size is moderately enlarged . Right Ventricle Mild right ventricular dilation with normal systolic function. Right Atrium RA size is normal. Aortic Valve Mild AoV cusp thickening. Mitral Valve Mild MV leaflet thickening. Trace mitral regurgitation. Tricuspid Valve Normal TV structure and function by available views and Doppler. Mild tricuspid regurgitation. Estimated peak systolic PA pressure is 30-35 mmHg (normal range) . Pulmonic Valve Normal PV structure and function by limited views and Doppler. A trace ofpulmonary regurgitation. Aorta Aortic root size (SInus of Valsalva diameter) is normal . Pericardium No significant pericardial effusion is visualized. IVC/SVC/PA/PV/Pleural The estimated RA pressure by IVC dynamics 0-5mmHg . Chambers/Structures Left Atrium LA Volume: 91.66 ml LA Area: 26.97 cm^2 LA Vol. Index: 43 ml/m^2 Left Ventricle LVIDd: 5.11 cm LV Septum Diastolic: 0.97 cm LV PW Diastolic: 0.93 cm LVEDV Lara's:100.81 ml LVESV Lara's:54.51 ml LVEF Lara's: 42.9 % LVEDVI: 48 ml/m^2 LVESVI: 26 ml/m^2 LVOT Diameter: 2.01 cm Right Atrium RA Area: 17.26 cm^2 Right Ventricle RV Diast Dim.: 4.16 cm TAPSE: 1.75 cm Aorta Ao Root S of Joyce.: 3.16 cm Doppler/Quantitative Measurements Mitral Valve MV Peak E-Wave: 0.74 m/s MV Peak A-Wave: 0.98 m/s E/A Ratio: 0.75 Peak Gradient: 2.16 mmHg MV Vic. Peak: Tissue Doppler E' Lateral Velocity: 0.04 m/s E/E': 16.58 Aortic Valve Peak Velocity: 1.21 m/s Mean Velocity: 0.78 m/s Peak Gradient: 5.87 mmHg Mean Gradient: 2.97 mmHg AV Area (continuity): 1.77 cm^2 AV VTI: 20.68 cm AV DVI: 0.56 LVOT Peak Velocity: 0.7 m/s Peak Gradient: 1.98 mmHg Mean Velocity: 0.51 m/s Mean Gradient: 1.26 mmHg LVOT Diameter: 2.01 cm LVOT VTI: 11.53 cm LVOT Area: 3.17 cm^2 LVOT SV:36.57 ml LVOT CO: 2.6 l/min LVOT CI: 1.23 l/min/m^2 Tricuspid Valve TR Velocity: 2.58 m/s TR Gradient: 26.62 mmHgCHI Kentfield HospitalPUL PERF IMAGING, [id number] 11:47:00Unlisted Reason for Exam - Click Yes and Enter Reason Below->Yes Unlisted Reason for Exam->Positive extensive LLE DVT, dyspneaFINAL REPORT PROCEDURE: LUNG SCAN - perfusion only CPT CODE: 78012 INDICATION: PE suspected, high pretest probability, positive DVT, treated with heparin PROTOCOL: 2.17 mCi of Tc-99m MAA was injected intravenously, and static perfusion images were obtained in standard eight projections. Ventilation imaging was not performed due to Covid 19 precautions. FINDINGS: Tracer distribution is heterogeneous, worse in the lung bases.. IMPRESSION: Abnormal perfusion lung scan. The findings are atypical for acute pulmonary embolus but subacute embolus cannot be excluded Signed: Nicko Maynard MDReport Verified Date/Time: 07/16/2020 11:47:57 Reading Locat ion: [address] [address] [facility] [place] Electronically signed by: NICKO MAYNARD MD on07/16/2020 11:47 AMNM lung perfusion [id number] 11:47:00Interface, External Ris In - 07/16/2020 11:50 AM CDTFINAL REPORT PROCEDURE: LUNG SCAN - perfusion only CPT CODE: 47700 INDICATION: PE suspected, high pretest probability, positive DVT, treated with heparin PROTOCOL: 2.17 mCi of Tc-99m MAA was injected intravenously, and static perfusion images were obtained in standard eight projections. Ventilation imaging was not performed due to Covid 19 precautions. FINDINGS: Tracer distribution is heterogeneous, worse in the lung bases.. IMPRESSION: Abnormal perfusion lung scan. The findings are atypicalfor acute pulmonary embolus but subacute embolus cannot be excluded Signed: Nicko Maynard MDRkatrinort Verified Date/Time: 07/16/2020 11:47:57 Reading Location: [address] [address] [id number] 11:33:00 Test Item Value Reference Range Interpretation Comments HEMOGLOBIN A1C (BEAKER) (test code = 9.6 % 4.3-6.1 H 368) Venous doppler leg, [id number] 10:46:03Ejection FractionSLEH ECHO HEARTLAB MKCKESSON [facility] Left Impression1. There is total mildly echogenic and echolucent deep venous obstruction inthe common femoral, profunda femoral, femoral, popliteal, posterior tibialand peroneal veins.2. There is total echolucent superficial venous obstruction in thegreatsaphenous vein. Conclusions Summary Venous duplex imaging and compression of the left lower extremity were performed. The veins were adequately visualized. The left deep venous system was consistent with acute thrombus. The left superficial venous system was consistent with acute thrombus. Signature Velocities are measured in cm/s ; Diameters are measured in cm Interface, External Ris In - 07/16/2020 10:46 AM CDTPV LAB - Lower Extremities DVT Study Demographics Patient Name SHELTON, Date of Study 07/15/2020 AME Age 60 Visit Number [id number] Gender Female Accession Number [id number] Date of 1960 Referring Anny Mendieta Room Number 914 Physician Shake Out Worker Pineda Chua Interpreting Aurora Araiza MD RVS Physician ProcedureType of Study: Veins: Lower Extremities DVT Study, VENOUS DOPPLER LEG, LEFT. Indications for Study:Leg swelling and Redness .Patient Status:STAT.Study Location:Portable.Technical Quality:Adequate visualization. - Results were reported to: Dr. Mendieta @ 18:30.Risk FactorsHistory of Disease+ +----+------ +!Diagnosis !Date!Comments !+ +----+ +!Hi story/Risk ! !Previous history of DVT as per patient, !!Factors: ! !Morbid obesity !+ +----+ +ImpressionsLeft Impression1. There is total mildly echogenic and echolucent deepvenous obstruction inthe common femoral, profunda femoral, femoral, popliteal, posterior tibialand peroneal veins.2. There is total echolucent superficial venous obstruction in the greatsaphenous vein.Conclusions Summary Venous duplex imaging and compression of the left lower extremity were performed. The veins were adequately visualized. The left deep venous system was consistent with acute thrombus. The left superficial venous system was consistent with acute thrombus. Signature Velocities are measured in cm/s ; Diameters are measured in [facility]AP[facility] 2020-07-16 09:43:00 Test Item Value Reference Range Interpretation Comments PARTIAL THROMBOPLASTIN TIME 91.3 seconds 22.5-36.0 H (DiObex) (test code = 760) [id number] 08:48:00 Test Item Value Reference Range Interpretation Comments PARTIAL THROMBOPLASTIN TIME > seconds 22.5-36.0 HH (DiObex) (test code = 760) POCT-GLUCOSE [id number] 07:50:00 Test Item Value Reference Range Interpretation Comments POC-GLUCOSE METER 179 mg/dL 70-110 H : TESTED A T [facility] 6720 (DiObex) (test code = [place], 1538) [address]: Document Clerk/Techni kate ID = [id number] for BAHMAN KNAPP BASIC METABOLIC [id number] 06:44:00 Test Item Value Reference Range Interpretation Comments SODIUM (BEAKER) 132 meq/L 136-145 L (test code = 381) POTASSIUM (BEAKER) 4.6 meq/L 3.5-5.1 (test code = 379) CHLORIDE (BEAKER) 103 meq/L 98-107 (test code = 382) CO2 (BEAKER) (test 21 meq/L 22-29 L code = 355) BLOOD UREA NITROGEN 44 mg/dL 7-21 H (BEAKER) (test code = 354) CREATININE (BEAKER) 1.75 mg/dL 0.57-1.25 H (test code = 358) GLUCOSE RANDOM 182 mg/dL 70-105 H (BEAKER) (test code = 652) CALCIUM (BEAKER) 8.9 mg/dL 8.4-10.2 (test code = 697) EGFR (BEAKER) (test 29 mL/min/1.73 ESTIMA LAYNE GFR IS code = 1092) sq m NOT ACCURATE CREATININE CLEARANCE IN PREDICTING GLOMERULAR FILTRATION RATE . ESTIMATED GFR I S NOT APPLICABLE FOR DIALYSIS PATIEN TS. Document Clerk ID - [id number] 06:36:00 Test Item Value Reference Range Interpretation Comments PARTIAL THROMBOPLASTIN TIME > seconds 22.5-36.0 HH (BEAKER) (test code = 760) PROTHROMBIN TIME/[id number] 06:17:00 Test Item Value Reference Range Interpretation Comments PROTIME (BEAKER) (test code = 16.0 seconds 11.9-14.2 H 759) INR (BEAKER) (test code = 370) 1.32 <=5.90 Effective 04/26/2019: PT Reference Range ChangeNew: 11.9-14.2 Previous: 11.7- 14.7RECOMMENDED COUMADIN/WARFARIN INR THERAPY RANGESSTANDARD DOSE: 2.0-3.0 Includes: PROPHYLAXIS for venous thrombosis, systemic embolization; TREATMENT for venous thrombosis and/or pulmonary embolus.HIGH RISK: Target INR is2.5-3.5 for patients wiht mechanical heart valves.Prior to initiating heparinWhile on warfarin.CBC (Hemogram only)2020-07-16 05:37:00 Test Item Value Reference Range Interpretation Comments WBC (test code = 6690-2) 11.2 See_Comment H [A utomated message] The system [employer] generated this result transmitted ref erence range: 3.5 - 10 .5 K/L. The refe rence range was not u sed to interpret this result as normal/abnor mal. RBC (test code = 789-8) 3.73 See_Comment L [Au tomated message] The system [employer] generated this result transmitted ref erence range: 3.93 - 5 .22 M/L. The refe rence range was not u sed to interpret this result as normal/abnor mal. MCHC (test code = 786-4) 32.9 See_Comment [A utomated message] The system [employer] generated this result transmitted ref erence range: 32.2 - 3 5.5 GM/DL. The refe rence range was not u sed to interpret this result as normal/abnor mal. Hematocrit (test code = 34.7 % 34.1-44.9 4544-3) MCV (test code = 787-2) 93.0 fL 79.4-94.8 MCH (test code = 785-6) 30.6 pg 25.6-32.2 RDW (test code = 788-0) 12.8 % 11.7-14.4 Platelets (test code = 204 See_Comment [Aut omated message] 777-3) The system [employer] generated this result transmitted ref erence range: 150 - 45 0 K/CU MM. The referen ce range was not u sed to interpret this result as normal/abnor mal. MPV (test code = 10.5 fL 9.4-12.3 16928-0) nRBC (test code = 413) 0 See_Comment [Aut omated message] The system [employer] generated this result transmitted ref erence range: 0 - 0 /1 00 WBC. The refere nce range was not u sed to interpret this result as normal/abnor mal. Lab Interpretation (test Abnormal code = 55589-6) [facility] W/PLT COUNT & AUTO [id number] 05:37:00 Test Item Value Reference Range Interpretation Comments WHITE BLOOD CELL COUNT (BEAKER) 11.2 K/ L 3.5-10.5 H (test code = 775) RED BLOOD CELL COUNT (BEAKER) 3.73 M/ L 3.93-5.22 L (test code = 761) HEMOGLOBIN (BEAKER) (test code = 11.4 GM/DL 11.2-15.7 410) HEMATOCRIT (BEAKER) (test code = 34.7 % 34.1-44.9 411) MEAN CORPUSCULAR VOLUME (BEAKER) 93.0 fL 79.4-94.8 (test code = 753) MEAN CORPUSCULAR HEMOGLOBIN 30.6 pg 25.6-32.2 (BEAKER) (test code = 751) MEAN CORPUSCULAR HEMOGLOBIN CONC 32.9 GM/DL 32.2-35.5 (BEAKER) (test code = 752) RED CELL DISTRIBUTION WIDTH 12.8 % 11.7-14.4 (BEAKER) (test code = 412) PLATELET COUNT (BEAKER) (test 204 K/CU MM 150-450 code = 756) MEAN PLATELET VOLUME (BEAKER) 10.5 fL 9.4-12.3 (test code = 754) NUCLEATED RED BLOOD CELLS 0 /100 WBC 0-0 (BEAKER) (test code = 413) NEUTROPHILS RELATIVE PERCENT 64 % (BEAKER) (test code = 429) LYMPHOCYTES RELATIVE PERCENT 25 % (BEAKER) (test code = 430) MONOCYTES RELATIVE PERCENT 7 % (BEAKER) (test code = 431) EOSINOPHILS RELATIVE PERCENT 3 % (BEAKER) (test code = 432) BASOPHILS RELATIVE PERCENT 0 % (BEAKER) (test code = 437) NEUTROPHILS ABSOLUTE COUNT 7.17 K/ L 1.56-6.13 H (BEAKER) (test code = 670) LYMPHOCYTES ABSOLUTE COUNT 2.82 K/ L 1.18-3.74 (BEAKER) (test code = 414) MONOCYTES ABSOLUTE COUNT (BEAKER) 0.80 K/ L 0.24-0.36 H (test code = 415) EOSINOPHILS ABSOLUTE COUNT 0.35 K/ L 0.04-0.36 (BEAKER) (test code = 416) BASOPHILS ABSOLUTE COUNT (BEAKER) 0.05 K/ L 0.01-0.08 (test code = 417) IMMATURE GRANULOCYTES-RELATIVE 0 % 0-1 PERCENT (BEAKER) (test code = 2801) CBC (HEMOGRAM ONLY)2020-07-16 05:37:00 Test Item Value Reference Range Interpretation Comments WHITE BLOOD CELL COUNT (BEAKER) 11.2 K/ L 3.5-10.5 H (test code = 775) RED BLOOD CELL COUNT (BEAKER) 3.73 M/ L 3.93-5.22 L (test code = 761) HEMOGLOBIN (BEAKER) (test code = 11.4 GM/DL 11.2-15.7 410) HEMATOCRIT (BEAKER) (test code = 34.7 % 34.1-44.9 411) MEAN CORPUSCULAR VOLUME (BEAKER) 93.0 fL 79.4-94.8 (test code = 753) MEAN CORPUSCULAR HEMOGLOBIN 30.6 pg 25.6-32.2 (BEAKER) (test code = 751) MEAN CORPUSCULAR HEMOGLOBIN CONC 32.9 GM/DL 32.2-35.5 (BEAKER) (test code = 752) RED CELL DISTRIBUTION WIDTH 12.8 % 11.7-14.4 (BEAKER) (test code = 412) PLATELET COUNT (BEAKER) (test 204 K/CU MM 150-450 code = 756) MEAN PLATELET VOLUME (BEAKER) 10.5 fL 9.4-12.3 (test code = 754) NUCLEATED RED BLOOD CELLS 0 /100 WBC 0-0 (BEAKER) (test code = 413) CREATININE, RANDOM [id number] 04:55:00 Test Item Value Reference Range Interpretation Comments CREATININE URINE (BEAKER) (test 135.0 mg/dL code = 375) Reference Range: No NormalsOperator ID - DBSODIUM, RANDOM [id number] 04:55:00 Test Item Value Reference Range Interpretation Comments SODIUM URINE (BEAKER) (test code = 34 meq/L 243) Reference Range: No NormalsOperator ID - DBCOMPREHENSIVE METABOLIC PANEL 2020-07-15 15:31:00 Test Item Value Reference Range Interpretation Comments TOTAL PROTEIN 7.4 gm/dL 6.0-8.3 (BEAKER) (test code = 770) ALBUMIN (BEAKER) 4.2 g/dL 3.5-5.0 (test code = 1145) ALKALINE PHOSPHATASE 123 U/L 40-150 (BEAKER) (test code = 346) BILIRUBIN TOTAL 0.5 mg/dL 0.2-1.2 (BEAKER) (test code = 377) SODIUM (BEAKER) (test 133 meq/L 136-145 L code = 381) POTASSIUM (BEAKER) 5.3 meq/L 3.5-5.1 H (test code = 379) CHLORIDE (BEAKER) 104 meq/L 98-107 (test code = 382) CO2 (BEAKER) (test 18 meq/L 22-29 L code = 355) BLOOD UREA NITROGEN 41 mg/dL 7-21 H (BEAKER) (test code = 354) CREATININE (BEAKER) 1.71 mg/dL 0.57-1.25 H (test code = 358) GLUCOSE RANDOM 351 mg/dL 70-105 H (BEAKER) (test code = 652) CALCIUM (BEAKER) 9.2 mg/dL 8.4-10.2 (test code = 697) AST (SGOT) (BEAKER) 12 U/L 5-34 (test code = 353) ALT (SGPT) (BEAKER) 11 U/L 6-55 (test code = 347) EGFR (BEAKER) (test 30 mL/min/1.73 ESTIMA LAYNE GFR IS code = 1092) sq m NOT ACCURATE CREATININE CLEARANCE IN PREDICTING GLOMERULAR FILTRATION RATE . ESTIMATED GFR I S NOT APPLICABLE FOR DIALYSIS PATIEN TS. Document Clerk ID - [id number] 15:22:00 Test Item Value Reference Range Interpretation Comments PARTIAL THROMBOPLASTIN TIME 27.9 seconds 22.5-36.0 (BEAKER) (test code = 760) PROTHROMBIN TIME/[id number] 15:21:00 Test Item Value Reference Range Interpretation Comments PROTIME (BEAKER) (test code = 13.8 seconds 11.9-14.2 759) INR (BEAKER) (test code = 370) 1.09 <=5.90 Effective 04/26/2019: PT Reference Range ChangeNew: 11.9-14.2 Previous: 11.7- 14.7RECOMMENDED COUMADIN/WARFARIN INR THERAPY RANGESSTANDARD DOSE: 2.0-3.0 Includes: PROPHYLAXIS for venous thrombosis, systemic embolization; TREATMENT for venous thrombosis and/or pulmonary embolus.HIGH RISK: Target INR is2.5-3.5 for patients wiht mechanical heart valves.CBC W/PLT COUNT & AUTO [id number] 15:16:00 Test Item Value Reference Range Interpretation Comments WHITE BLOOD CELL COUNT (BEAKER) 11.3 K/ L 3.5-10.5 H (test code = 775) RED BLOOD CELL COUNT (BEAKER) 3.79 M/ L 3.93-5.22 L (test code = 761) HEMOGLOBIN (BEAKER) (test code = 11.8 GM/DL 11.2-15.7 410) HEMATOCRIT (BEAKER) (test code = 35.2 % 34.1-44.9 411) MEAN CORPUSCULAR VOLUME (BEAKER) 92.9 fL 79.4-94.8 (test code = 753) MEAN CORPUSCULAR HEMOGLOBIN 31.1 pg 25.6-32.2 (BEAKER) (test code = 751) MEAN CORPUSCULAR HEMOGLOBIN CONC 33.5 GM/DL 32.2-35.5 (BEAKER) (test code = 752) RED CELL DISTRIBUTION WIDTH 12.8 % 11.7-14.4 (BEAKER) (test code = 412) PLATELET COUNT (BEAKER) (test 219 K/CU MM 150-450 code = 756) MEAN PLATELET VOLUME (BEAKER) 11.1 fL 9.4-12.3 (test code = 754) NUCLEATED RED BLOOD CELLS 0 /100 WBC 0-0 (BEAKER) (test code = 413) NEUTROPHILS RELATIVE PERCENT 71 % (BEAKER) (test code = 429) LYMPHOCYTES RELATIVE PERCENT 21 % (BEAKER) (test code = 430) MONOCYTES RELATIVE PERCENT 5 % (BEAKER) (test code = 431) EOSINOPHILS RELATIVE PERCENT 3 % (BEAKER) (test code = 432) BASOPHILS RELATIVE PERCENT 0 % (BEAKER) (test code = 437) NEUTROPHILS ABSOLUTE COUNT 7.97 K/ L 1.56-6.13 H (BEAKER) (test code = 670) LYMPHOCYTES ABSOLUTE COUNT 2.36 K/ L 1.18-3.74 (BEAKER) (test code = 414) MONOCYTES ABSOLUTE COUNT (BEAKER) 0.58 K/ L 0.24-0.36 H (test code = 415) EOSINOPHILS ABSOLUTE COUNT 0.28 K/ L 0.04-0.36 (BEAKER) (test code = 416) BASOPHILS ABSOLUTE COUNT (BEAKER) 0.04 K/ L 0.01-0.08 (test code = 417) IMMATURE GRANULOCYTES-RELATIVE 0 % 0-1 PERCENT (BEAKER) (test code = 2801) HEMOGLOBIN [id number] 14:11:00 Test Item Value Reference Range Interpretation Comments HEMOGLOBIN A1C (BEAKER) (test code = 9.4 % 4.3-6.1 H 368) TSH/FREE T4 IF [id number] 12:24:00 Test Item Value Reference Range Interpretation Comments THYROID STIMULATING HORMONE 1.808 uIU/mL 0.350-4.940 (BEAKER) (test code = 772) Document Clerk ID - ADMINLipid [id number] 12:05:00 Test Item Value Reference Range Interpretation Comments Triglycerides (test 135 mg/dL code = 2571-8) Cholesterol (test code 111 mg/dL = 2093-3) HDL (test code = 31 mg/dL 2085-9) LDL Calculated (test 53 mg/dL code = 59902-2) ANTHONY (test code = ANTHONY) Triglyceride Reference Range: Low Risk <150 Borderline 150-199 High Risk 200-499 Very High Risk >=500 Cholesterol Reference Range: Low Risk <200 Borderline 200-239 High Risk >240 HDL Cholesterol Reference Range: Low Risk >=60 High Risk <40 LDL Cholesterol Reference Range: Optimal <100 Near Optimal 100-129 Borderline 130-159 High 160-189 Very High >=190 Document Clerk ID - ADMIN [facility]anoLIPID [id number] 12:05:00 Test Item Value Reference Range Interpretation Comments TRIGLYCERIDES (BEAKER) (test code = 135 mg/dL 540) CHOLESTEROL (BEAKER) (test code = 111 mg/dL 631) HDL CHOLESTEROL (BEAKER) (test code 31 mg/dL = 976) LDL CHOLESTEROL CALCULATED (BEAKER) 53 mg/dL (test code = 633) Triglyceride Reference Range: Low Risk <150 Borderline 150-199 High Risk 200-499 Very High Risk >=500Cholesterol Reference Range: Low Risk <200 Borderline 200-239 High Risk >240HDL Cholesterol Reference Range: Low Risk >=60 High Risk <40LDL Cholesterol Reference Range: Optimal <100 Near Optimal 100-129 Borderline 130-159 High 160-189 Very High >=190 Document Clerk ID - ADMINCOMPREHENSIVE METABOLIC [id number] 12:05:00 Test Item Value Reference Range Interpretation Comments TOTAL PROTEIN 6.8 gm/dL 6.0-8.3 (BEAKER) (test code = 770) ALBUMIN (BEAKER) 3.9 g/dL 3.5-5.0 (test code = 1145) ALKALINE PHOSPHATASE 112 U/L 40-150 (BEAKER) (test code = 346) BILIRUBIN TOTAL 0.4 mg/dL 0.2-1.2 (BEAKER) (test code = 377) SODIUM (BEAKER) (test 134 meq/L 136-145 L code = 381) POTASSIUM (BEAKER) 5.2 meq/L 3.5-5.1 H (test code = 379) CHLORIDE (BEAKER) 103 meq/L 98-107 (test code = 382) CO2 (BEAKER) (test 23 meq/L 22-29 code = 355) BLOOD UREA NITROGEN 35 mg/dL 7-21 H (BEAKER) (test code = 354) CREATININE (BEAKER) 1.56 mg/dL 0.57-1.25 H (test code = 358) GLUCOSE RANDOM 314 mg/dL 70-105 H (BEAKER) (test code = 652) CALCIUM (BEAKER) 9.0 mg/dL 8.4-10.2 (test code = 697) AST (SGOT) (BEAKER) 12 U/L 5-34 (test code = 353) ALT (SGPT) (BEAKER) 8 U/L 6-55 (test code = 347) EGFR (BEAKER) (test 34 mL/min/1.73 ESTIMA LAYNE GFR IS code = 1092) sq m NOT ACCURATE CREATININE CLEARANCE IN PREDICTING GLOMERULAR FILTRATION RATE . ESTIMATED GFR I S NOT APPLICABLE FOR DIALYSIS PATIEN TS. Document Clerk ID - ADMINHEMOGLOBIN [id number] 12:22:00 Test Item Value Reference Range Interpretation Comments HEMOGLOBIN A1C (BEAKER) (test code = 8.2 % 4.3-6.1 H 368) TSH/FREE T4 IF [id number] 11:50:00 Test Item Value Reference Range Interpretation Comments THYROID STIMULATING HORMONE 2.52 uIU/mL 0.35-4.94 (BEAKER) (test code = 772) COMPREHENSIVE METABOLIC [id number] 11:34:00 Test Item Value Reference Range Interpretation Comments TOTAL PROTEIN 8.0 gm/dL 6.0-8.3 (BEAKER) (test code = 770) ALBUMIN (BEAKER) 4.3 g/dL 3.5-5.0 (test code = 1145) ALKALINE PHOSPHATASE 123 U/L 40-150 (BEAKER) (test code = 346) BILIRUBIN TOTAL 0.7 mg/dL 0.2-1.2 (BEAKER) (test code = 377) SODIUM (BEAKER) (test 137 meq/L 136-145 code = 381) POTASSIUM (BEAKER) 5.1 meq/L 3.5-5.1 (test code = 379) CHLORIDE (BEAKER) 103 meq/L 98-107 (test code = 382) CO2 (BEAKER) (test 26 meq/L 22-29 code = 355) BLOOD UREA NITROGEN 35 mg/dL 7-21 H (BEAKER) (test code = 354) CREATININE (BEAKER) 1.50 mg/dL 0.57-1.25 H (test code = 358) GLUCOSE RANDOM 148 mg/dL 70-105 H (BEAKER) (test code = 652) CALCIUM (BEAKER) 10.6 mg/dL 8.4-10.2 H (test code = 697) AST (SGOT) (BEAKER) 12 U/L 5-34 (test code = 353) ALT (SGPT) (BEAKER) 14 U/L 6-55 (test code = 347) EGFR (BEAKER) (test 35 mL/min/1.73 ESTIMA LAYNE GFR IS code = 1092) sq m NOT ACCURATE CREATININE CLEARANCE IN PREDICTING GLOMERULAR FILTRATION RATE . ESTIMATED GFR I S NOT APPLICABLE FOR DIALYSIS PATIEN TS. CBC W/PLT COUNT & AUTO [id number] 11:15:00 Test Item Value Reference Range Interpretation Comments WHITE BLOOD CELL COUNT (BEAKER) 9.7 K/ L 3.5-10.5 (test code = 775) RED BLOOD CELL COUNT (BEAKER) 4.16 M/ L 3.93-5.22 (test code = 761) HEMOGLOBIN (BEAKER) (test code = 13.0 GM/DL 11.2-15.7 410) HEMATOCRIT (BEAKER) (test code = 38.5 % 34.1-44.9 411) MEAN CORPUSCULAR VOLUME (BEAKER) 92.5 fL 79.4-94.8 (test code = 753) MEAN CORPUSCULAR HEMOGLOBIN 31.3 pg 25.6-32.2 (BEAKER) (test code = 751) MEAN CORPUSCULAR HEMOGLOBIN CONC 33.8 GM/DL 32.2-35.5 (BEAKER) (test code = 752) RED CELL DISTRIBUTION WIDTH 12.6 % 11.7-14.4 (BEAKER) (test code = 412) PLATELET COUNT (BEAKER) (test 234 K/CU MM 150-450 code = 756) MEAN PLATELET VOLUME (BEAKER) 10.3 fL 9.4-12.3 (test code = 754) NUCLEATED RED BLOOD CELLS 0 /100 WBC 0-0 (BEAKER) (test code = 413) NEUTROPHILS RELATIVE PERCENT 60 % (BEAKER) (test code = 429) LYMPHOCYTES RELATIVE PERCENT 31 % (BEAKER) (test code = 430) MONOCYTES RELATIVE PERCENT 6 % (BEAKER) (test code = 431) EOSINOPHILS RELATIVE PERCENT 3 % (BEAKER) (test code = 432) BASOPHILS RELATIVE PERCENT 1 % (BEAKER) (test code = 437) NEUTROPHILS ABSOLUTE COUNT 5.78 K/ L 1.56-6.13 (BEAKER) (test code = 670) LYMPHOCYTES ABSOLUTE COUNT 2.96 K/ L 1.18-3.74 (BEAKER) (test code = 414) MONOCYTES ABSOLUTE COUNT (BEAKER) 0.55 K/ L 0.24-0.36 H (test code = 415) EOSINOPHILS ABSOLUTE COUNT 0.28 K/ L 0.04-0.36 (BEAKER) (test code = 416) BASOPHILS ABSOLUTE COUNT (BEAKER) 0.06 K/ L 0.01-0.08 (test code = 417) IMMATURE GRANULOCYTES-RELATIVE 0 % 0-1 PERCENT (BEAKER) (test code = 2801) BASIC METABOLIC [id number] 13:57:00 Test Item Value Reference Range Interpretation Comments SODIUM (BEAKER) 138 meq/L 136-145 (test code = 381) POTASSIUM (BEAKER) 4.7 meq/L 3.5-5.1 (test code = 379) CHLORIDE (BEAKER) 106 meq/L 98-107 (test code = 382) CO2 (BEAKER) (test 24 meq/L 22-29 code = 355) BLOOD UREA NITROGEN 35 mg/dL 7-21 H (BEAKER) (test code = 354) CREATININE (BEAKER) 1.44 mg/dL 0.57-1.25 H (test code = 358) GLUCOSE RANDOM 146 mg/dL 70-105 H (BEAKER) (test code = 652) CALCIUM (BEAKER) 9.3 mg/dL 8.4-10.2 (test code = 697) EGFR (BEAKER) (test 37 mL/min/1.73 ESTIMA LAYNE GFR IS code = 1092) sq m NOT ACCURATE CREATININE CLEARANCE IN PREDICTING GLOMERULAR FILTRATION RATE . ESTIMATED GFR I S NOT APPLICABLE FOR DIALYSIS PATIEN TS. CBC W/PLT COUNT & AUTO [id number] 13:35:00 Test Item Value Reference Range Interpretation Comments WHITE BLOOD CELL COUNT (BEAKER) 10.1 K/ L 3.5-10.5 (test code = 775) RED BLOOD CELL COUNT (BEAKER) 3.86 M/ L 3.93-5.22 L (test code = 761) HEMOGLOBIN (BEAKER) (test code = 11.7 GM/DL 11.2-15.7 410) HEMATOCRIT (BEAKER) (test code = 36.0 % 34.1-44.9 411) MEAN CORPUSCULAR VOLUME (BEAKER) 93.3 fL 79.4-94.8 (test code = 753) MEAN CORPUSCULAR HEMOGLOBIN 30.3 pg 25.6-32.2 (BEAKER) (test code = 751) MEAN CORPUSCULAR HEMOGLOBIN CONC 32.5 GM/DL 32.2-35.5 (BEAKER) (test code = 752) RED CELL DISTRIBUTION WIDTH 12.8 % 11.7-14.4 (BEAKER) (test code = 412) PLATELET COUNT (BEAKER) (test 235 K/CU MM 150-450 code = 756) MEAN PLATELET VOLUME (BEAKER) 10.7 fL 9.4-12.3 (test code = 754) NUCLEATED RED BLOOD CELLS 0 /100 WBC 0-0 (BEAKER) (test code = 413) NEUTROPHILS RELATIVE PERCENT 61 % (BEAKER) (test code = 429) LYMPHOCYTES RELATIVE PERCENT 27 % (BEAKER) (test code = 430) MONOCYTES RELATIVE PERCENT 8 % (BEAKER) (test code = 431) EOSINOPHILS RELATIVE PERCENT 3 % (BEAKER) (test code = 432) BASOPHILS RELATIVE PERCENT 1 % (BEAKER) (test code = 437) NEUTROPHILS ABSOLUTE COUNT 6.17 K/ L 1.56-6.13 H (BEAKER) (test code = 670) LYMPHOCYTES ABSOLUTE COUNT 2.71 K/ L 1.18-3.74 (BEAKER) (test code = 414) MONOCYTES ABSOLUTE COUNT (BEAKER) 0.82 K/ L 0.24-0.36 H (test code = 415) EOSINOPHILS ABSOLUTE COUNT 0.31 K/ L 0.04-0.36 (BEAKER) (test code = 416) BASOPHILS ABSOLUTE COUNT (BEAKER) 0.05 K/ L 0.01-0.08 (test code = 417) IMMATURE GRANULOCYTES-RELATIVE 0 % 0-1 PERCENT (BEAKER) (test code = 2801) HEMOGLOBIN [id number] 13:45:00 Test Item Value Reference Range Interpretation Comments HEMOGLOBIN A1C (BEAKER) (test code = 7.9 % 4.3-6.1 H 368) TSH/FREE T4 IF [id number] 12:54:00 Test Item Value Reference Range Interpretation Comments THYROID STIMULATING HORMONE 2.71 uIU/mL 0.35-4.94 (BEAKER) (test code = 772) LIPID [id number] 11:16:00 Test Item Value Reference Range Interpretation Comments TRIGLYCERIDES (BEAKER) (test code = 158 mg/dL 540) CHOLESTEROL (BEAKER) (test code = 108 mg/dL 631) HDL CHOLESTEROL (BEAKER) (test code 27 mg/dL = 976) LDL CHOLESTEROL CALCULATED (BEAKER) 49 mg/dL (test code = 633) Triglyceride Reference Range: Low Risk <150 Borderline 150-199 High Risk 200-499 Very High Risk >=500Cholesterol Reference Range: Low Risk <200 Borderline 200-239 High Risk >240HDL Cholesterol Reference Range: Low Risk >=60 High Risk <40LDL Cholesterol Reference Range: Optimal <100 Near Optimal 100-129 Borderline 130-159 High 160-189 Very High >=190COMPREHENSIVE METABOLIC [id number] 11:16:00 Test Item Value Reference Range Interpretation Comments TOTAL PROTEIN 7.2 gm/dL 6.0-8.3 (BEAKER) (test code = 770) ALBUMIN (BEAKER) 3.9 g/dL 3.5-5.0 (test code = 1145) ALKALINE PHOSPHATASE 113 U/L 40-150 (BEAKER) (test code = 346) BILIRUBIN TOTAL 0.4 mg/dL 0.2-1.2 (BEAKER) (test code = 377) SODIUM (BEAKER) (test 135 meq/L 136-145 L code = 381) POTASSIUM (BEAKER) 4.4 meq/L 3.5-5.1 (test code = 379) CHLORIDE (BEAKER) 102 meq/L 98-107 (test code = 382) CO2 (BEAKER) (test 24 meq/L 22-29 code = 355) BLOOD UREA NITROGEN 51 mg/dL 7-21 H (BEAKER) (test code = 354) CREATININE (BEAKER) 1.30 mg/dL 0.57-1.25 H (test code = 358) GLUCOSE RANDOM 247 mg/dL 70-105 H (BEAKER) (test code = 652) CALCIUM (BEAKER) 9.9 mg/dL 8.4-10.2 (test code = 697) AST (SGOT) (BEAKER) 15 U/L 5-34 (test code = 353) ALT (SGPT) (BEAKER) 24 U/L 6-55 (test code = 347) EGFR (BEAKER) (test 42 mL/min/1.73 ESTIMA LAYNE GFR IS code = 1092) sq m NOT ACCURATE CREATININE CLEARANCE IN PREDICTING GLOMERULAR FILTRATION RATE . ESTIMATED GFR I S NOT APPLICABLE FOR DIALYSIS PATIEN TS. CBC W/PLT COUNT & AUTO [id number] 10:52:00 Test Item Value Reference Range Interpretation Comments WHITE BLOOD CELL COUNT (BEAKER) 9.0 K/ L 3.5-10.5 (test code = 775) RED BLOOD CELL COUNT (BEAKER) 3.89 M/ L 3.93-5.22 L (test code = 761) HEMOGLOBIN (BEAKER) (test code = 12.0 GM/DL 11.2-15.7 410) HEMATOCRIT (BEAKER) (test code = 35.5 % 34.1-44.9 411) MEAN CORPUSCULAR VOLUME (BEAKER) 91.3 fL 79.4-94.8 (test code = 753) MEAN CORPUSCULAR HEMOGLOBIN 30.8 pg 25.6-32.2 (BEAKER) (test code = 751) MEAN CORPUSCULAR HEMOGLOBIN CONC 33.8 GM/DL 32.2-35.5 (BEAKER) (test code = 752) RED CELL DISTRIBUTION WIDTH 12.4 % 11.7-14.4 (BEAKER) (test code = 412) PLATELET COUNT (BEAKER) (test 221 K/CU MM 150-450 code = 756) MEAN PLATELET VOLUME (BEAKER) 10.7 fL 9.4-12.3 (test code = 754) NUCLEATED RED BLOOD CELLS 0 /100 WBC 0-0 (BEAKER) (test code = 413) NEUTROPHILS RELATIVE PERCENT 59 % (BEAKER) (test code = 429) LYMPHOCYTES RELATIVE PERCENT 33 % (BEAKER) (test code = 430) MONOCYTES RELATIVE PERCENT 4 % (BEAKER) (test code = 431) EOSINOPHILS RELATIVE PERCENT 2 % (BEAKER) (test code = 432) BASOPHILS RELATIVE PERCENT 0 % (BEAKER) (test code = 437) NEUTROPHILS ABSOLUTE COUNT 5.31 K/ L 1.56-6.13 (BEAKER) (test code = 670) LYMPHOCYTES ABSOLUTE COUNT 2.99 K/ L 1.18-3.74 (BEAKER) (test code = 414) MONOCYTES ABSOLUTE COUNT (BEAKER) 0.39 K/ L 0.24-0.36 H (test code = 415) EOSINOPHILS ABSOLUTE COUNT 0.21 K/ L 0.04-0.36 (BEAKER) (test code = 416) BASOPHILS ABSOLUTE COUNT (BEAKER) 0.03 K/ L 0.01-0.08 (test code = 417) IMMATURE GRANULOCYTES-RELATIVE 1 % 0-1 PERCENT (BEAKER) (test code = 2806) HEMOGLOBIN [id number] 11:30:00 Test Item Value Reference Range Interpretation Comments HEMOGLOBIN A1C (BEAKER) (test code = 8.5 % 4.3-6.1 H 368) HEMOGLOBIN [id number] 13:33:00 Test Item Value Reference Range Interpretation Comments HEMOGLOBIN A1C (BEAKER) (test code = 10.9 % 4.3-6.1 H 368) TSH/FREE T4 IF [id number] 12:27:00 Test Item Value Reference Range Interpretation Comments THYROID STIMULATING HORMONE 2.33 uIU/mL 0.35-4.94 (BEAKER) (test code = 772) LIPID [id number] 12:10:00 Test Item Value Reference Range Interpretation Comments TRIGLYCERIDES (BEAKER) (test code = 116 mg/dL 540) CHOLESTEROL (BEAKER) (test code = 130 mg/dL 631) HDL CHOLESTEROL (BEAKER) (test code 34 mg/dL = 976) LDL CHOLESTEROL CALCULATED (BEAKER) 73 mg/dL (test code = 633) Triglyceride Reference Range: Low Risk <150 Borderline 150-199 High Risk 200-499 Very High Risk >=500Cholesterol Reference Range: Low Risk <200 Borderline 200-239 High Risk >240HDL Cholesterol Reference Range: Low Risk >=60 High Risk <40LDL Cholesterol Reference Range: Optimal <100 Near Optimal 100-129 Borderline 130-159 High 160-189 Very High >=190COMPREHENSIVE METABOLIC [id number] 12:10:00 Test Item Value Reference Range Interpretation Comments TOTAL PROTEIN 7.2 gm/dL 6.0-8.3 (BEAKER) (test code = 770) ALBUMIN (BEAKER) 3.8 g/dL 3.5-5.0 (test code = 1145) ALKALINE PHOSPHATASE 141 U/L 40-150 (BEAKER) (test code = 346) BILIRUBIN TOTAL 0.7 mg/dL 0.2-1.2 (BEAKER) (test code = 377) SODIUM (BEAKER) (test 133 meq/L 136-145 L code = 381) POTASSIUM (BEAKER) 4.1 meq/L 3.5-5.1 (test code = 379) CHLORIDE (BEAKER) 100 meq/L 98-107 (test code = 382) CO2 (BEAKER) (test 27 meq/L 22-29 code = 355) BLOOD UREA NITROGEN 21 mg/dL 7-21 (BEAKER) (test code = 354) CREATININE (BEAKER) 1.22 mg/dL 0.57-1.25 (test code = 358) GLUCOSE RANDOM 293 mg/dL 70-105 H (BEAKER) (test code = 652) CALCIUM (BEAKER) 9.3 mg/dL 8.4-10.2 (test code = 697) AST (SGOT) (BEAKER) 16 U/L 5-34 (test code = 353) ALT (SGPT) (BEAKER) 16 U/L 6-55 (test code = 347) EGFR (BEAKER) (test 45 mL/min/1.73 ESTIMA LAYNE GFR IS code = 1092) sq m NOT ACCURATE CREATININE CLEARANCE IN PREDICTING GLOMERULAR FILTRATION RATE . ESTIMATED GFR I S NOT APPLICABLE FOR DIALYSIS PATIEN TS. HEMOGLOBIN [id number] 13:44:00 Test Item Value Reference Range Interpretation Comments HEMOGLOBIN A1C (BEAKER) (test code = 10.8 % 4.3-6.1 H 368) HEMOGLOBIN [id number] 09:58:00 Test Item Value Reference Range Interpretation Comments HEMOGLOBIN A1C (BEAKER) (test code = 8.3 % 4.3-6.1 H 368) TSH/FREE T4 IF [id number] 13:49:00 Test Item Value Reference Range Interpretation Comments THYROID STIMULATING HORMONE 1.94 uIU/mL 0.35-4.94 (BEAKER) (test code = 772) HEMOGLOBIN [id number] 12:27:00 Test Item Value Reference Range Interpretation Comments HEMOGLOBIN A1C (BEAKER) (test code = 11.3 % 4.3-6.1 H 368) LIPID [id number] 11:56:00 Test Item Value Reference Range Interpretation Comments TRIGLYCERIDES (BEAKER) (test code = 162 mg/dL 540) CHOLESTEROL (BEAKER) (test code = 136 mg/dL 631) HDL CHOLESTEROL (BEAKER) (test code 33 mg/dL = 976) LDL CHOLESTEROL CALCULATED (BEAKER) 71 mg/dL (test code = 633) Triglyceride Reference Range: Low Risk <150 Borderline 150-199 High Risk 200-499 Very High Risk >=500Cholesterol Reference Range: Low Risk <200 Borderline 200-239 High Risk >240HDL Cholesterol Reference Range: Low Risk >=60 High Risk <40LDL Cholesterol Reference Range: Optimal <100 Near Optimal 100-129 Borderline 130-159 High 160-189 Very High >=190COMPREHENSIVE METABOLIC [id number] 11:56:00 Test Item Value Reference Range Interpretation Comments TOTAL PROTEIN 6.8 gm/dL 6.0-8.3 (BEAKER) (test code = 770) ALBUMIN (BEAKER) 3.6 g/dL 3.5-5.0 (test code = 1145) ALKALINE PHOSPHATASE 138 U/L 40-150 (BEAKER) (test code = 346) BILIRUBIN TOTAL 0.5 mg/dL 0.2-1.2 (BEAKER) (test code = 377) SODIUM (BEAKER) (test 135 meq/L 136-145 L code = 381) POTASSIUM (BEAKER) 4.5 meq/L 3.5-5.1 (test code = 379) CHLORIDE (BEAKER) 103 meq/L 98-107 (test code = 382) CO2 (BEAKER) (test 25 meq/L 22-29 code = 355) BLOOD UREA NITROGEN 25 mg/dL 7-21 H (BEAKER) (test code = 354) CREATININE (BEAKER) 1.16 mg/dL 0.57-1.25 (test code = 358) GLUCOSE RANDOM 341 mg/dL 70-105 H (BEAKER) (test code = 652) CALCIUM (BEAKER) 8.8 mg/dL 8.4-10.2 (test code = 697) AST (SGOT) (BEAKER) 15 U/L 5-34 (test code = 353) ALT (SGPT) (BEAKER) 15 U/L 6-55 (test code = 347) EGFR (BEAKER) (test 48 mL/min/1.73 ESTIMA LAYNE GFR IS code = 1092) sq m NOT ACCURATE CREATININE CLEARANCE IN PREDICTING GLOMERULAR FILTRATION RATE . ESTIMATED GFR I S NOT APPLICABLE FOR DIALYSIS PATIEN TS. [id number] 09:01:00 Test Item Value Reference Range Interpretation Comments D-DIMER QUANTITATIVE (BEAKER) < MG/L FEU <0.50 (test code = 671) Intended Use: The D-Dimer Assay can be used to aid in the diagnosis of Deep Vein Thrombosis (DVT) and Pulmonary Embolism Disease (PED).In patients with low pre- test probability, various studies concerning STA Liatest D-dimer test have reported that with a cutoff value of 0.50 MG/L FEU, the Negative Predictive Value (NPV) regarding the exclusion of thrombosis is within 95-100% range. CREATINE KINASE (CK), TOTAL AND [id number] 09:01:00 Test Item Value Reference Range Interpretation Comments CREATINE KINASE TOTAL (BEAKER) 43 U/L 29-200 (test code = 380) CREATINE KINASE-MB (BEAKER) (test 0.7 ng/mL 0.0-6.6 code = 750) CREATINE KINASE-MB INDEX (BEAKER) 1.6 % (test code = 395) Effective 10/16/2014: CK-MB Reference Range ChangeNew: 0.0-6.6 Previous: 0.0-4.9CK-MB Reference Range:<6.7 Normal6.7-10.0 Borderline>10.0 AbnormalTROPONIN [id number] 09:01:00 Test Item Value Reference Range Interpretation Comments TROPONIN I (BEAKER) (test code = 0.02 ng/mL 0.00-0.03 397) Effective 10/16/2014: Reference Range ChangeNew: 0.00-0.03 Previous [...] acute neurological disease, and persistent tachyarrhythmia.BASIC METABOLIC [id number] 08:53:00 Test Item Value Reference Range Interpretation Comments SODIUM (BEAKER) 136 meq/L 136-145 (test code = 381) POTASSIUM (BEAKER) 4.1 meq/L 3.5-5.1 (test code = 379) CHLORIDE (BEAKER) 102 meq/L 98-107 (test code = 382) CO2 (BEAKER) (test 25 meq/L 22-29 code = 355) BLOOD UREA NITROGEN 16 mg/dL 7-21 (BEAKER) (test code = 354) CREATININE (BEAKER) 1.00 mg/dL 0.57-1.25 (test code = 358) GLUCOSE RANDOM 186 mg/dL 70-105 H (BEAKER) (test code = 652) CALCIUM (BEAKER) 9.4 mg/dL 8.4-10.2 (test code = 697) EGFR (BEAKER) (test 57 mL/min/1.73 ESTIMA LAYNE GFR IS code = 1092) sq m NOT ACCURATE CREATININE CLEARANCE IN PREDICTING GLOMERULAR FILTRATION RATE . ESTIMATED GFR I S NOT APPLICABLE FOR DIALYSIS PATIEN TS. CBC W/PLT COUNT & AUTO [id number] 08:30:00 Test Item Value Reference Range Interpretation Comments WHITE BLOOD CELL COUNT (BEAKER) 9.2 K/ L 4.0-10.0 (test code = 775) RED BLOOD CELL COUNT (BEAKER) 4.74 M/ L 4.00-5.00 (test code = 761) HEMOGLOBIN (BEAKER) (test code = 14.5 GM/DL 12.0-15.0 410) HEMATOCRIT (BEAKER) (test code = 43.7 % 36.0-45.0 411) MEAN CORPUSCULAR VOLUME (BEAKER) 92.2 fL 82.0-99.0 (test code = 753) MEAN CORPUSCULAR HEMOGLOBIN 30.7 pg 27.0-33.0 (BEAKER) (test code = 751) MEAN CORPUSCULAR HEMOGLOBIN CONC 33.3 GM/DL 32.0-36.0 (BEAKER) (test code = 752) RED CELL DISTRIBUTION WIDTH 12.0 % 10.3-14.2 (BEAKER) (test code = 412) PLATELET COUNT (BEAKER) (test 247 K/CU MM 150-430 code = 756) MEAN PLATELET VOLUME (BEAKER) 7.8 fL 6.5-10.5 (test code = 754) NUCLEATED RED BLOOD CELLS 0 /100 WBC 0-0 (BEAKER) (test code = 413) NEUTROPHILS RELATIVE PERCENT 57 % (BEAKER) (test code = 429) LYMPHOCYTES RELATIVE PERCENT 35 % (BEAKER) (test code = 430) MONOCYTES RELATIVE PERCENT 6 % (BEAKER) (test code = 431) EOSINOPHILS RELATIVE PERCENT 2 % (BEAKER) (test code = 432) BASOPHILS RELATIVE PERCENT 0 % (BEAKER) (test code = 437) NEUTROPHILS ABSOLUTE COUNT 5.30 K/ L 1.80-8.00 (BEAKER) (test code = 670) LYMPHOCYTES ABSOLUTE COUNT 3.21 K/ L 1.48-4.50 (BEAKER) (test code = 414) MONOCYTES ABSOLUTE COUNT (BEAKER) 0.51 K/ L 0.00-1.30 (test code = 415) EOSINOPHILS ABSOLUTE COUNT 0.19 K/ L 0.00-0.50 (BEAKER) (test code = 416) BASOPHILS ABSOLUTE COUNT (BEAKER) 0.03 K/ L 0.00-0.20 (test code = 417) 0.00
[2021-03-27] MEDS ORDERED: METHYLPREDNISOLONE 125 MG INJ ONE (08:05)
[2021-03-27] MEDS ORDERED: KETOROLAC 30 MG/ML INJ ONE (08:05)
--- NOTE | 2021-03-27 11:00 | RAD REPORT ---
EXAM DESCRIPTION: MRI - Lumbar Spine Rohan Marquez- 03/27/2021 10:48 am CLINICAL HISTORY: sciatic pain on right;Pain COMPARISON: No comparisons FINDINGS: Vertebral body heights are within normal limits. No aggressive marrow pattern is observed. No fracture is suspected. The conus medullaris terminates at a normal level. No thickening of the cauda equina or clumping of n erve roots seen. L1-2 level: Mild posterior disc bulge. L2-3 level: Mild posterior disc bulge. L3-4 level: Mild posterior disc bulge. L4-5 level: There is a significant disc protrusion with significant facet hypertrophy present resulti ng in significant central canal stenosis. Anterior inferior aspect of right left exit foramen is narr owed. L5-S1 level: Mild posterior disc bulge mild facet hypertrophy results in mild central canal narrowing . No significant exit foraminal stenosis. IMPRESSION: Significant spondylosis with central canal stenosis at L4-5.
--- NOTE | 2021-03-27 11:15 | ER ---
Nurse's Notes [facility] Name: Tersee Alaniz Age: 61 yrs Sex: Female : 1960 Arrival Date: 03/27/2021 Time: 07:22 Bed 4 Private MD: Diagnosis: Sciatica;Sciatica, right side Presentation: 03/27 07:40 Chief complaint: Patient states: RLE pain for about a week. Was seen at [facility] last sv week and was told it was arthritis and sent home with Tylenol prescription. Pt has reports at bedside for a CT, xray and US done at [facility]. Coronavirus screen: Client denies travel out of the [place] in the last 14 days. At this time, the client does not indicate any symptoms associated with coronavirus-19. Ebola Screen: No symptoms or risks identified at this time. Initial Sepsis Screen: Does the patient meet any 2 criteria? No. Patient's initial sepsis screen is negative. Does the patient have a suspected source of infection? No. Patient's initial sepsis screen is negative. Risk Assessment: Do you want to hurt yourself or someone else? Patient reports no desire to harm self or others. Onset of symptoms was February 2021. 07:40 Method Of Arrival: Wheelchair sv 07:40 Acuity: VISHNU 4 sv Triage Assessment: 07:40 General: Appears in no apparent distress. uncomfortable, obese, well developed, sv Behavior is calm, cooperative, appropriate for age. Pain: Complains of pain in right leg Pain currently is 9 out of 10 on a pain scale. Pain began about a week Is continuous. Neuro: Level of Consciousness is awake, alert, obeys commands, Oriented to person, place, time, situation, Moves all extremities. Full function Gait is steady. Respiratory: Respiratory effort is even, unlabored, Respiratory pattern is regular, symmetrical. Derm: Skin is intact, Skin is pink, warm \T\ dry. Historical: - Allergies: 07:42 No Known Allergies; sv - PMHx: :42 CHF; Diabetes - IDDM; High Cholesterol; Hypertension; sv - Immunization history:: Adult Immunizations. - Social history:: Smoking status: . Screenin:42 Abuse screen: Denies threats or abuse. Denies injuries from another. Nutritional sv screening: No deficits noted. Tuberculosis screening: No symptoms or risk factors identified. Fall Risk None identified. Assessment: 09:30 Reassessment: Patient appears in no apparent distress at this time. Patient and/or hb family updated on plan of care and expected duration. Pain level reassessed. Patient is alert, oriented x 3, equal unlabored respirations, skin warm/dry/pink. 10:13 Reassessment: Patient appears in no apparent distress at this time. Patient and/or sv family updated on plan of care and expected duration. Pain level reassessed. Patient is alert, oriented x 3, equal unlabored respirations, skin warm/dry/pink. 11:04 Reassessment: Patient appears in no apparent distress at this time. Patient and/or hb family updated on plan of care and expected duration. Pain level reassessed. Patient is alert, oriented x 3, equal unlabored respirations, skin warm/dry/pink. Vital Signs: 07:40 BP 139 / 107; Pulse 69; Resp 18; Temp 97.4; Pulse Ox 99% ; Weight 108.86 kg; Height 5 sv ft. 4 in. (162.56 cm); Pain 9/10; 07:53 BP 155 / 90; Pulse 86; Resp 20; Pulse Ox 98% ; sv 08:42 BP 140 / 50; Pulse 71; Resp 20; Pulse Ox 97% ; sv 11:04 BP 154 / 90; Pulse 73; Resp 16; Pulse Ox 100% ; hb 07:40 Body Mass Index 41.20 (108.86 kg, 162.56 cm) sv ED Course: 07:22 Patient arrived in ED. ds1 07:31 Carito Hionjosa RN is Primary Nurse. sv 07:36 Malcolm Ibarra MD is Attending Physician. kdr 07:42 Triage completed. sv 07:42 ED physician to see patient. sv 07:42 Arm band placed on. sv 07:42 Patient has correct armband on for positive identification. Bed in low position. Call sv light in reach. Side rails up X 1. Adult w/ patient. Pulse ox on. NIBP on. Door closed. Head of bed elevated. 07:45 Inserted saline lock: 20 gauge in right antecubital area, using aseptic technique. sv Flushed right antecubital with 2 ml normal saline. 08:00 Awaiting: MRI. sv 10:13 Patient moved to MRI via wheelchair. sv 10:27 MRI Lumbar Spine wo Con In Process Unspecified. EDMS 11:30 No provider procedures requiring assistance completed. IV discontinued, intact, sv bleeding controlled, No redness/swelling at site. Pressure dressing applied. Administered Medications: 07:51 Drug: SOLU-Medrol (methylPrednisoLONE) 125 mg Route: IVP; Site: right antecubital; sv 10:14 Follow up: Response: No adverse reaction sv 07:53 Drug: TORadol - (ketorolac) 15 mg Route: IVP; Site: right antecubital; sv 10:14 Follow up: Response: No adverse reaction sv Outcome: 11:14 Discharge ordered by . kdr 11:30 Discharged to home via wheelchair, with family. sv 11:30 Condition: stable 11:30 Condition: improved 11:30 Discharge instructions given to patient, family, Instructed on discharge instructions, follow up and referral plans. medication usage, Demonstrated understanding of instructions, follow-up care, medications, Prescriptions given X 3. 11:31 Patient left the ED. sv Signatures: Dispatcher [employer] EDCarito Louis, RN RN sv Malcolm Ibarra MD MD kdr Sanford, Demi ds1 Yodit Hoang RN RN
--- NOTE | 2021-03-27 11:15 | EDPHYS ---
Physician Documentation [facility] Name: Terese Alaniz Age: 61 yrs Sex: Female : 1960 Arrival Date: 03/27/2021 Time: 07:22 Bed 4 Private MD: ED Physician Malcolm Ibarra HPI: 03/27 07:42 This 61 yrs old Female presents to ER via Wheelchair with complaints of Leg kdr Pain. 07:42 The patient presents with an abrasion, pain, that is acute. The complaints affect the kdr right gluteal fold, right hamstring, posterior aspect of right knee, right calf, right Achilles and right heel. Context: The problem was sustained at home, resulted from an unknown cause, the patient can fully bear weight, the patient is able to ambulate, with mild difficulty, Problem is a result from a previous injury: No. Onset: The symptoms/episode began/occurred gradually, 1 week(s) ago. Modifying factors: The symptoms are alleviated by nothing. the symptoms are aggravated by movement, weight bearing. Associated signs and symptoms: The patient has no apparent associated signs or symptoms. Treatment prior to arrival includes: over the counter medications, Tylenol. Severity of symptoms: At their worst the symptoms were moderate, in the emergency department the symptoms are unchanged. The patient has not experienced similar symptoms in the past. The patient has been recently seen by a physician: Went to [place] last week and had full w/u and given Tylenol. Historical: - Allergies: 07:42 No Known Allergies; sv - PMHx: 07:42 CHF; Diabetes - IDDM; High Cholesterol; Hypertension; sv - Immunization history:: Adult Immunizations. - Social history:: Smoking status: . ROS: 07:42 Constitutional: Negative for fever, chills, and weight loss, Eyes: Negative for injury, kdr pain, redness, and discharge, ENT: Negative for injury, pain, and discharge, Neck: Negative for injury, pain, and swelling, Cardiovascular: Negative for chest pain, palpitations, and edema, Respiratory: Negative for shortness of breath, cough, wheezing, and pleuritic chest pain, Abdomen/GI: Negative for abdominal pain, nausea, vomiting, diarrhea, and constipation, Back: Negative for injury and pain, : Negative for injury, bleeding, discharge, and swelling, MS/Extremity: Negative for injury and deformity, Skin: Negative for injury, rash, and discoloration, Psych: Negative for depression, anxiety, suicide ideation, homicidal ideation, and hallucinations, Allergy/Immunology: Negative for hives, rash, and allergies, Endocrine: Negative for neck swelling, polydipsia, polyuria, polyphagia, and marked weight changes, Hematologic/Lymphatic: Negative for swollen nodes, abnormal bleeding, and unusual bruising. 07:42 Neuro: Positive for Pain from posterior buttock. Exam: 07:42 Constitutional: This is a well developed, well nourished patient who is awake, alert, kdr and in no acute distress. Head/Face: Normocephalic, atraumatic. Eyes: Pupils equal round and reactive to light, extra-ocular motions intact. Lids and lashes normal. Conjunctiva and sclera are non-icteric and not injected. Cornea within normal limits. Periorbital areas with no swelling, redness, or edema. Neck: Trachea midline, no thyromegaly or masses palpated, and no cervical lymphadenopathy. Supple, full range of motion without nuchal rigidity, or vertebral point tenderness. No Meningismus. Chest/axilla: Normal chest wall appearance and motion. Nontender with no deformity. No lesions are appreciated. Cardiovascular: Regular rate and rhythm with a normal S1 and S2. No gallops, murmurs, or rubs. Normal PMI, no JVD. No pulse deficits. Respiratory: Lungs have equal breath sounds bilaterally, clear to auscultation and percussion. No rales, rhonchi or wheezes noted. No increased work of breathing, no retractions or nasal flaring. Abdomen/GI: Soft, non-tender, with normal bowel sounds. No distension or tympany. No guarding or rebound. No evidence of tenderness throughout. Back: No spinal tenderness. No costovertebral tenderness. Full range of motion. Skin: Warm, dry with normal turgor. Normal color with no rashes, no lesions, and no evidence of cellulitis. MS/ Extremity: Pulses equal, no cyanosis. Neurovascular intact. Full, normal range of motion. Neuro: Awake and alert, GCS 15, oriented to person, place, time, and situation. Cranial nerves II-XII grossly intact. Motor strength 5/5 in all extremities. Sensory grossly intact. Cerebellar exam normal. Normal gait. Psych: Awake, alert, with orientation to person, place and time. Behavior, mood, and affect are within normal limits. Vital Signs: 07:40 BP 139 / 107; Pulse 69; Resp 18; Temp 97.4; Pulse Ox 99% ; Weight 108.86 kg; Height 5 sv ft. 4 in. (162.56 cm); Pain 9/10; 07:53 BP 155 / 90; Pulse 86; Resp 20; Pulse Ox 98% ; sv 08:42 BP 140 / 50; Pulse 71; Resp 20; Pulse Ox 97% ; sv 11:04 BP 154 / 90; Pulse 73; Resp 16; Pulse Ox 100% ; hb 07:40 Body Mass Index 41.20 (108.86 kg, 162.56 cm) sv MDM: 11:14 Patient medically screened. kdr 17:55 Data reviewed: vital signs, nurses notes, lab test result(s). Counseling: I had a kdr detailed discussion with the patient and/or guardian regarding: the historical points, exam findings, and any diagnostic results supporting the discharge/admit diagnosis, lab results, radiology results, the need for outpatient follow up. 03/27 07:42 Order name: MRI Lumbar Spine wo Con; Complete Time: 11:13 kdr Administered Medications: 07:51 Drug: SOLU-Medrol (methylPrednisoLONE) 125 mg Route: IVP; Site: right antecubital; sv 10:14 Follow up: Response: No adverse reaction sv 07:53 Drug: TORadol - (ketorolac) 15 mg Route: IVP; Site: right antecubital; sv 10:14 Follow up: Response: No adverse reaction sv Disposition: 03/27/21 11:14 Discharged to Home. Impression: Sciatica, Sciatica, right side. - Condition is Stable. - Discharge Instructions: Sciatica, [id number], Back Exercises, [id number], Radicular Pain. - Prescriptions for Ibuprofen 600 mg Oral Tablet - take 1 tablet by ORAL route every 6 hours As needed take with food; 30 tablet. Cyclobenzaprine 10 mg Oral Tablet - take 1 tablet by ORAL route every 8 hours As needed; 15 tablet. Medrol (Rodo) 4 mg Oral Tablets, Dose Pack - take 1 tablet by ORAL route as directed - follow package instructions; 1 packet. - Medication Reconciliation Form, Thank You Letter form. - Follow up: Private Physician; When: 2 - 3 days; Reason: If symptoms return, Further diagnostic work-up, Recheck today's complaints, Continuance of care, Re-evaluation by your physician. - Problem is an ongoing problem. - Symptoms have improved. Signatures: Dispatcher [employer] Carito Solitario RN RN Malcolm Ibarra MD MD [facility] Corrections: (The following items were deleted from the chart) 11:31 11:14 03/27/2021 11:14 Discharged to Home. Impression: Sciatica; Sciatica, right side. sv Condition is Stable. Forms are Medication Reconciliation Form, Thank You Letter, Antibiotic Education, Prescription Opioid Use. Follow up: Private Physician; When: 2 - 3 days; Reason: If symptoms return, Further diagnostic work-up, Recheck today's complaints, Continuance of care, Re-evaluation by your physician. Problem is an ongoing problem. Symptoms have improved. kdr
[2021-03-27 11:37] VITALS: TEMP 97.4
[2021-03-27 11:41] VITALS: BP 154/90; O2SAT 100
== END 2021-03-27 11:31 | disposition home or self-care (01) ==
LOC: ER 07:17
DX: M54.31 Sciatica, right side (principal); I10 Essential (primary) hypertension
CPT/HCPCS: 72148; 96375; 96374; 99284; J2930

== ENCOUNTER 2021-03-27 23:19 | Emergency (ER) | payer OTHER ==
--- OUTSIDE RECORDS SUMMARY | 2021-03-27 23:26 | XMS REPORT | Continuity of Care Document ---
:1960 Author Organization [facility] t Address [address] [place] [address] Care Team Providers Name Role Phone Terry [...] Expiration Date Sour ce Number MEDICAREMEDICARE A [id number] [id number]-P 00:00:00 - [facility] Problems Condition Condition Condition [...] Date Source Natural brother Diabetes [facility] Natural father Diabetes [facility] Natural father Heart disease [facility] Natural sister Diabetes [facility] Social History Social Habit Start Date Stop Date Quantity Comments Source Sex Assigned At [facility] Tobacco use and 2020-12-18 2020-12-18 Never used [facility] - exposure 00:00:00 00:00:00 [facility] Alcohol intake 2020-12-18 2020-12-18 Current [facility] 00:00:00 00:00:00 non-drinker of Medical Ce nter alcohol (finding) Smoking Status Start Date Stop Date Source Never smoker [facility] Medications Ordered Filled Start Stop Current Ordering Indication Dosage Frequency Signature Comments Components Source Medication Medication Date Date Medication? Clinician (SIG) Name Name insulin 60U Q.5D Inject [address] glargine 4-29 04-29 Units [facility]ukes - (LANTUS) 15:31: 00:00 subcutaneo Me dical 100 unit/mL 39 :00 usly 2 Center injection (two) times daily. insulin Yes 60U Q.5D Inject 60 [facility] glargine 4-29 [facility] - (LANTUS) 00:00: subcutaneo Med ical 100 unit/mL 00 usly 2 Center injection (two) times daily. zolpidem Yes TAKE [address] (AMBIEN) 10 4-15 TABLET BY Vipin es - mg tablet 00:00: MOUTH AT Medi vidhya 00 NIGHT Center NEEDED FOR INSOMNIA , MAX 10 MG PER DAY carvediloL Yes TAKE 1 [facility] (COREG) 25 4-09 TABLET BY Luke s - MG tablet 00:00: MOUTH Medical 00 TWICE Center DAILY WITH BREAKFAST AND DINNER Entresto Yes Take [address] [facility] 97-103 mg 3-05 tablet by [facility] - Tab 00:00: mouth Medical 00 twice Center daily Eliquis 5 Yes TAKE [address] [facility] [address] MG tablet 2-03 TABLET BY [facility] - 00:00: MOUTH Medical 00 TWICE Center DAILY FOR 6 DAYS, THEN TAKE 1 TABLET TWICE A DAY SITagliptin No 100mg QD Take 1 CH [...] by mouth Center tablet daily. zolpidem 2019-11 No 10mg Take [address] [facility] [address] (AMBIEN) 10 2-21 01-20 tablet (10 L ukes - mg tablet [...] Medical 00 :00 twice Center daily apixaban 2019-11- No 5mg Q.5D Take [address] (ELIQUIS) 5 0-07 02-03 tablet (5 Quin kes - mg Tab 00:00: 00:00 mg total) Medic al tablet 00 :00 by mouth 2 Center (two) times daily 10mg twice a day for 6 days then 5mg twice a day AFTER THAT. metoclopram 2020-0 2020- No 10mg Take [address] [address] mallorie HCl 8- 08-31 by mouth 4 [facility] - (REGLAN) 10 10:23: 00:00 (four) Med ical MG tablet 58 :00 times Center daily as needed for Nausea. sacubitriL- 2020-0 2020- No chronic 1{tbl} Q.5D Take 1 [...] [facility] t mononitrate 8-31 tablet (60 Uqin kes - (IMDUR) 60 00:00: mg total) Me dical MG 24 hr 00 by mouth Center tablet daily. gabapentin 2020-0 Yes 300mg [id number] Take [address] (NEURONTIN) 8- [id number] capsule [facility]ukes - 300 MG 00:00: 3D (300 mg Medical capsule 00 total) by Center mouth 3 (three) times daily. atorvastati 2020-0 Yes 20mg QD Take [address] [facility] n (LIPITOR) 8-31 tablet (20 Quin kes - 20 MG [...] times daily as needed for Nausea. insulin 2020-0 Yes 15U Inject 15 [facility] aspart 8-31 Units [facility]ukes - U-100 00:00: subcutaneo Medica l (NOVOLOG) 00 usly 3 Center 100 unit/mL (three) injection times daily before meals. carvediloL 2020- No 25mg Take [address] [facility] (COREG) 25 07-29 04-09 tablet (25 Quin kes - MG [...] times Center daily for 7 days. apixaban 2019- 2020- No 10mg Q.5D Take [address] (ELIQUIS) 5 07-20- tablets Luke s - mg Tab 00:00: 00:00 (10 mg Medical tablet 00 :00 total) by Center mouth 2 (two) times daily 10mg twice a day for 6 days then 5mg twice a day AFTER THAT. rivaroxaban 2019-0 2020- No 15mg Take [address] [facility] (XARELTO) 07-20 tablet (15 Vipin es - 15 mg Tab 00:00: 00:00 mg total) Me dical tablet 00 :00 by mouth 2 Center (two) times daily with breakfast and dinner for 21 days. rivaroxaban 2019-0 2020- No 20mg Take [address] [facility] (XARELTO) 07-20 tablet (20 Vipin es - 20 mg Tab 00:00: 00:00 mg total) Me dical tablet 00 :00 by mouth Center daily with dinner for 30 days. rivaroxaban 2019-0 2020- No 15mg PO [facility] (XARELTO) 07-20 twice a [facility]ukes - 15 mg (42)- 00:00: 00:00 day for 21 Medical 20 mg (9) 00 :00 DAYS then Cente r DsPk 20mg ONCE A DAY WITH DINNER AFTER THAT. enoxaparin 2019- 2020- No 110mg Inject 0.[address] (LOVENOX) 07-20 mLs (110 [facility]ukes - 120 mg/0.8 00:00: 00:00 mg total) M edical mL Syrg 00 :00 subcrustneo Center usly every 12 (twelve) hours for 30 days. gabapentin 2019- 2020- No 300mg Q.[id number] Take [address] (NEURONTIN) 07-04 [id number] capsule Lukes - 300 MG 00:00: 00:00 3D (300 mg Medical capsule 00 :00 total) by Center mouth 3 (three) times daily. zolpidem 2019-0 2020- No TAKE [address] [facility] (AMBIEN) 10 06-04 TABLET BY Quin kes - mg tablet 00:00: 00:00 MOUTH AT Med ical 00 :00 NIGHT Center NEEDED FOR INSOMNIA MAX DAILY AMOUNT 10 MG insulin 2019- No 55U QD Inject [address] glargine 04-08 Units [facility]ukes - (LANTUS) 00:00: 00:00 subcutaneo Me dical 100 unit/mL 00 :00 usly every Ce nter (3 mL) InPn morning. insulin 2019- No 15U Inject [address] aspart 04-08 Units [facility]ukes - U-100 00:00: 00:00 subcutaneo Medic al (NOVOLOG) 00 :00 usly 3 Center 100 unit/mL (three) injection times daily before meals. carvediloL 2019- No 25mg Take [address] [facility] (COREG) [...] 00 :00 by mouth Center every evening. spironolact 2019- No 25mg QD Take [address] [facility] one 04-08 tablet (25 [facility]ukes - (ALDACTONE) 00:00: 23:59 mg total) Medical 25 MG 00 :00 by mouth Center tablet daily for 90 days. ENTRESTO 2019- No 1{tbl} Q.5D Take [address] 97-103 mg 5-11 08-09 tablet by Luke s - Tab 00:00: 23:59 mouth 2 Medical 00 :00 (two) Center times daily for 90 days. gabapentin 2019- No 300mg Q.[id number] Take [address] (NEURONTIN) 5-11 08-06 [id number] capsule [facility]ukes - 300 MG 00:00: 00:00 [...] t (GLUCOPHAGE 2-06 05-11 TABLET BY Quin tolberts - ) 1000 MG 00:00: 00:00 MOUTH Medica l tablet 00 :00 TWICE Center DAILY WITH BREAKFAST AND DINNER gabapentin 2019- No TAKE [address] [facility] (NEURONTIN) 9-16 05-11 CAPSULE BY L ukes - 300 MG 00:00: 00:00 MOUTH Medical capsule 00 :00 THREE Center TIMES DAILY torsemide 2019- No TAKE 1 [facility] (DEMADEX) 7-12 05-11 TABLET BY Donaldo s - 10 MG 00:00: 00:00 MOUTH [...] :00 by mouth Center every evening. insulin 2017-11 2020- No 55U QD Inject [address] [...] ts Source Name Name (Shingrix, 2020-10-15 [facility] Medical Cent er Adjuvanted) Zoster Vaccine IM Influenza TIV (IM) 2020-07-[address] [facility] - 00:00:00 [facility] SHINGLES VARICELLA 2020-06-[address] [facility] - (ZOSTAVAX) ZOSTER 00:00:00 [facility] Influenza TIV (IM) 2018-09-[address] [facility] - 00:00:00 [facility] Pneumococcal 2018-09-[address] [facility] - Polysaccharide 00:00:00 Medical Ce nter (Pneumovax) Influenza TIV (IM) 2017-10-[address] [facility] - 00:00:00 [facility] Pneumococcal 2014-12-[address] [facility] - Polysaccharide 00:00:00 Medical Ce nter (Pneumovax) Vital Signs Vital Name Observation Time Observation Value Comments Source Systolic blood 2020-12-18 10:03:00 144 mm[Hg] [facility] Diastolic blood 2020-12-18 10:03:00 64 mm[Hg] [facility] Heart rate 2020-12-18 10:03:00 94 /min [facility] Body temperature 2020-12-18 10:03:00 36.11 Debbi [facility] Respiratory rate 2020-12-18 10:03:00 18 /min [facility] Body height 2020-12-18 10:03:00 160 cm [facility] Body weight 2020-12-18 10:03:00 122.063 kg [facility] BMI 2020-12-18 10:03:00 47.67 kg/m2 [facility] Oxygen saturation in 2020-12-18 10:03:00 96 /min room air [facility] Arterial blood by Medical Ce nter Pulse oximetry Procedures Procedure Date / Time Performed Performing Clinician [place] hu VITAMIN D, 25-HYDROXY 2020-12-18 10:56:00 Sincere Wade [facility] BASIC METABOLIC PANEL (7) 2020-12-18 10:56:00 Sincere Wade [facility] CBC W/PLT COUNT & AUTO 2020-11-15 11:16:[address] [facility] COMPREHENSIVE METABOLIC 2020-11-15 11:16:00 Sincere Wade [facility] HEMOGLOBIN A1C 2020-11-15 11:16:00 Sincere Wade [facility] IRON, TIBC, % SAT. 2020-11-15 11:15:[address] [facility]WITHOUT FERRITIN[facility] FOLATE 2020-11-15 11:15:00 Sincere Wade [facility] B-TYPE NATRIURETIC FACTOR 2020-11-15 11:15:00 [facility] TSH/FREE T4 IF INDICATED 2020-11-15 11:15:00 Sincere Wade [facility] CT LOWER EXTREMITY 2020-07-29 13:51:[address] [facility] WITHOUT IV CONTRAST RIGHT [facility] CARDIAC CATH REPORT - 2020-07-23 10:40:10 Provider, Default [facility] VASCULAR DIAGRAM -SCAN 2020-07-23 10:40:08 Provider, Default [facility] POCT-GLUCOSE METER 2020-07-20 11:38:00 Adan Castillo [facility] POCT-GLUCOSE METER 2020-07-20 07:41:00 Anna [facility] B-TYPE NATRIURETIC FACTOR 2020-07-20 04:21:[address] [facility] (BNP) [facility] CALCIUM, IONIZED 2020-07-20 04:21:00 Bucky Alaniz [facility] CBC W/PLT COUNT & AUTO 2020-07-20 04:21:00 Bucky Alaniz [facility] MAGNESIUM 2020-07-20 04:21:00 Bucky Alaniz [facility] PHOSPHORUS 2020-07-20 04:21:00 Bucky Alaniz [facility] COMPREHENSIVE METABOLIC 2020-07-20 04:21:00 Murphy Osullivan [facility] FACTOR 5 LEIDEN PCR 2020-07-20 04:21:00 Omari Barrienots [facility] (THROMBOTIC RISK) [facility] PROTHROMBIN GENE MUTATION 2020-07-20 04:21:00 Omari Barrientos [facility] POCT-GLUCOSE METER 2020-07-19 21:05:00 Anna [facility] POCT-GLUCOSE METER 2020-07-19 16:58:00 Anna [facility] BASIC METABOLIC PANEL (7) 2020-07-19 12:53:00 Bucky Alaniz [facility] CALCIUM, IONIZED 2020-07-19 12:53:00 Bucky Alaniz [facility] CBC W/PLT COUNT & AUTO 2020-07-19 12:53:[address] [facility] MAGNESIUM 2020-07-19 12:53:00 Bucky Alaniz [facility] PHOSPHORUS 2020-07-19 12:53:00 Bucky Alaniz [facility] POCT-GLUCOSE METER 2020-07-19 12:05:00 Anna [facility] POCT-GLUCOSE METER 2020-07-19 10:40:00 Anna [facility] POCT-ACT 2020-07-19 09:26:00 Anna [facility] POCT-ACT 2020-07-19 08:31:00 Anna [facility] THROMBOLYSIS VENOUS - 2020-07-19 07:11:00 Terry Henriquez [facility] - INITIAL DAY [facility] - [facility] C enter PROC ONLY POCT-GLUCOSE METER 2020-07-18 21:14:00 Anna [facility] SARS-COV2/RT-PCR ([facility] & 2020-07-18 16:36:00 Terry Henriquez [facility] - REF LABS) [facility] POCT-GLUCOSE METER 2020-07-18 15:52:00 Anna [facility] APTT 2020-07-18 14:38:00 Al [facility] POCT-GLUCOSE METER 2020-07-18 11:22:00 Anna [facility] POCT-GLUCOSE METER 2020-07-18 07:47:00 Anna [facility] CBC W/PLT COUNT & AUTO 2020-07-18 05:55:[address] [facility] MAGNESIUM 2020-07-18 05:55:00 Bucky Alaniz [facility] PHOSPHORUS 2020-07-18 05:55:00 Bucky Alaniz [facility] CALCIUM, IONIZED 2020-07-18 05:55:00 Abran [facility] COMPREHENSIVE METABOLIC 2020-07-18 05:55:00 Abran [facility] PROTHROMBIN TIME/INR 2020-07-18 05:55:00 Al [facility] APTT 2020-07-18 05:55:00 Anny Mendieta [facility] APTT 2020-07-17 22:15:00 Anny Mendieta [facility] APTT 2020-07-17 20:27:00 Anny Mendieta [facility] POCT-GLUCOSE METER 2020-07-17 19:57:00 Anna [facility] CT ABDOMEN/PELVIS WITH & 2020-07-17 16:51:00 Anna [facility] - WITHOUT IV CONTRAST Medical Cent er POCT-GLUCOSE METER 2020-07-17 15:24:00 Anna [facility] APTT 2020-07-17 12:24:00 Anny Mendieta [facility] POCT-GLUCOSE METER 2020-07-17 11:21:00 Anna [facility] POCT-GLUCOSE METER 2020-07-17 07:29:00 Anna Adan [facility] B-TYPE NATRIURETIC FACTOR 2020-07-17 06:21:[address] [facility] (BNP) [facility] CALCIUM, IONIZED 2020-07-17 06:21:00 Bucky Alaniz [facility] CBC W/PLT COUNT & AUTO 2020-07-17 06:21:[address] [facility] MAGNESIUM 2020-07-17 06:21:00 Bucky Alaniz [facility] PHOSPHORUS 2020-07-17 06:21:00 Bucky Alaniz [facility] CREATINE KINASE (CK) 2020-07-17 06:21:00 Bucky Alaniz [facility] URIC ACID 2020-07-17 06:21:00 Bucky Alaniz [facility] COMPREHENSIVE METABOLIC 2020-07-17 06:21:00 Murphy Osullivan [facility] PROTHROMBIN TIME/INR 2020-07-17 06:21:00 Tonie Melendez [facility] APTT 2020-07-17 06:21:00 Socorro Mendietaha Deonte [facility] APTT 2020-07-16 22:45:00 Anny Mendieta [facility] POCT-GLUCOSE METER 2020-07-16 20:41:00 Anna Adan [facility] US RENAL COMPLETE 2020-07-16 19:27:00 Tonie Melendez [facility] POCT-GLUCOSE METER 2020-07-16 16:48:00 Adan Castillo [facility] CREATININE, RANDOM URINE 2020-07-16 16:29:00 Bucky Alnaiz [facility] SODIUM, RANDOM URINE 2020-07-16 16:29:00 Bucky Alaniz [facility] PROTEIN, RANDOM URINE 2020-07-16 16:29:00 Bucky Alaniz [facility] URINALYSIS W/ MICROSCOPIC 2020-07-16 16:29:00 Bucky Alaniz [facility] APTT 2020-07-16 16:28:00 Anny Mendieta [facility] XR CHEST 1 VIEW 2020-07-16 15:36:[address] [facility] PORTABLE/BEDSIDE Medical Center POCT-GLUCOSE METER 2020-07-16 13:18:00 Adan Castillo [facility] 2D ECHO W/ DOPPLER 2020-07-16 11:58:12 Al [facility] (CW/PW/COLOR) [facility] NM LUNG PERFUSION SCAN 2020-07-16 11:36:00 Tonie Melendez [facility] APTT 2020-07-16 09:18:00 Anny Mendieta [facility] POCT-GLUCOSE METER 2020-07-16 07:39:00 [facility] 2020-07-16 06:47:00 Al [facility] CBC (HEMOGRAM ONLY) 2020-07-16 05:18:00 Anny Mendieta [facility] APTT 2020-07-16 05:18:00 Anny Mendieta [facility] BASIC METABOLIC PANEL (7) 2020-07-16 05:18:[address] [facility] HEMOGLOBIN A1C 2020-07-16 05:18:00 [facility] CBC W/PLT COUNT & AUTO 2020-07-16 05:18:00 Tonie Melendez [facility] PROTHROMBIN TIME/INR 2020-07-16 05:18:00 Tonie Melendez [facility] SODIUM, RANDOM URINE 2020-07-16 03:05:00 Tonie Melendez [facility] CREATININE, RANDOM URINE 2020-07-16 03:05:00 Tonie Melendez [facility] ECG 12-LEAD 2020-07-15 21:07:56 Anny Mendieta [facility] VENOUS DOPPLER LEG, LEFT 2020-07-15 18:20:00 Anny Mendieta [facility] CBC W/PLT COUNT & AUTO 2020-07-15 15:07:00 Anny Mendieta [facility] PROTHROMBIN TIME/INR 2020-07-15 15:07:00 Anny Mendieta [facility] APTT 2020-07-15 15:07:00 Anny Mendieta [facility] COMPREHENSIVE METABOLIC 2020-07-15 15:07:00 Anny Mendieta [facility] HEMOGLOBIN A1C 2020-04-08 11:19:00 [facility] TSH/FREE T4 IF INDICATED 2020-04-08 11:19:00 Sincere Wade [facility] COMPREHENSIVE METABOLIC 2020-04-08 11:19:00 Sincere Wade [facility] LIPID PANEL 2020-04-08 11:19:00 [facility] Sincere [facility] Plan of Care Planned Activity Planned Date Details Comments Source Future Scheduled 2023-04-[address] [facility] - Test 00:00:00 (procedure) [code = [facility] 67659594] Future Scheduled 2021-02-[address] [facility] - Test 00:00:00 measurement [facility] Center (procedure) [code = 86923975] Future Scheduled 2020-12-10 SHINGLES VACCINES ([address] [facility] - Test 00:00:00 of 3) [code = [facility] SHINGLES VACCINES (3 of 3)] Future Scheduled 2020-11-[address] [facility] - Test 00:00:00 (12+) [code = Medical Center DEPRESSION SCREENING (12+)] Future Scheduled 2013-02-[address] [facility] - Test 00:00:00 WELLNESS (YEAR 2 or Medical Center FIRST YEAR if no IPPE) [code = MEDICARE ANNUAL WELLNESS (YEAR 2 or FIRST YEAR if no IPPE)] Future Scheduled [address] [facility] - Test 00:00:[address] [facility] cervix (procedure) [code = 601835904] Future Scheduled 1977 DTAP/TDAP/TD VACCINES CH I [...] 00:00:00 examination Medical Center (regime/therapy) [code = 762827467] Future Scheduled 1968 Urine screening for [facility] - Test 00:00:00 protein (procedure) Medical Center [code = 988808253] Future Scheduled [address] [facility] - Test 00:00:[address] [facility] breast (procedure) [code = 416428876] Future Scheduled [address] [facility] - Test 00:00:[address] [facility] colon (procedure) [code = 312345850] Encounters Start End Encounter Admission Attending Care Care Encounter Source Date/Time Date/Time Type Type Clinicians Facility Department ID 2020-12-11 2020-12-11 Letter [facility], [facility] [id number] 00:00:00 00:00:00 (Out) Patient Health [id number] Does Not [place] [id number] Have A Professio [phone] nal [address] 2020-12-09 2020-12-09 Telephone Cam, [facility] [id number] 00:00:00 00:00:00 Martita A Health [id number] [place] [id number] Professio [phone] nal [address] 2020-12-04 2020-12-04 Laboratory Lab, Adc [facility] [id number] 09:55:41 10:15:41 Only Fam Pob I Health [id number] [place] [id number] Professio [phone] formerly [facility] [address] 2020-10-28 2020-10-28 Office Link, [facility] [id number] 12:18:08 12:48:08 Visit Lb Hu AMBULATOR [id number] Y 0.2.7.2.686 [id number] [id number] 2020-08-30 2020-08-30 Base Brander Roddy, [facility] [id number] 10:48:02 11:03:02 Visit Lab Main [place] [id number] [place] [id number] Professio [phone] [address] 2020-08-30 2020-08-30 Orders Doctor LAYLA [id number] 00:00:00 00:00:00 Only Unassigned, ALEYDA [id number] [facility] 4.2.7.2.686 [phone] 009 2020-08-27 2020-08-27 Base Brander Roddy, [facility] [id number] 13:39:21 13:54:21 Visit Lab Main [place] [id number] [place] [id number] Professio [id number] [address] 2020-08-22 2020-08-22 Base Brander Roddy, [facility] [id number] 15:26:34 15:41:34 Visit Lab Main [place] [id number] [place] [id number] Professio [phone] [address] 2020-08-20 2020-08-20 Base Brander Roddy, [facility] [id number] 10:58:50 11:13:50 Visit Lab Main [place] [id number] [place] [id number] Professio [phone] [address] 2020-08-20 2020-08-20 Orders Doctor LAYLA [id number] 00:00:00 00:00:00 Only Unassigned, ALEYDA [id number] [place] [facility] 4.2.7.2.686 [id number] 009 2020-05-09 2020-05-09 [facility] [id number] 07:32:53 09:40:00 Encounter Mack Derrick [id number] [place] 4.2.7.2.686 Surgical [id number] [place] [address] 2020-05-08 2020-05-08 Laboratory Only, [facility] [id number] 11:03:41 11:18:41 Only Test [place] [id number] [place] 4.2.7.2.686 [place] [phone] [facility] 2020-04-25 2020-04-25 [facility] [id number] 07:13:00 09:44:00 Encounter Mack Derrick [id number] [place] 4.2.7.2.686 Surgical [id number] [place] [address] 2020-04-25 2020-04-25 Orders Doctor LAYLA [id number] 00:00:00 00:00:00 Only Unassigned, ALEYDA [id number] [place] [facility] 4.2.7.2.686 [phone] 009 2020-04-24 2020-04-24 Laboratory Only, [facility] [id number] 15:22:54 15:37:54 Only Test [place] [id number] [place] 4.2.7.2.686 Professio [phone] [address] 2020-04-18 2020-04-18 Base Brander Roddy, [facility] [id number] 16:47:22 17:02:22 Visit Lab Main [place] [id number] René 4.2.7.2.686 Professio [phone] [address] Results Test Description Test Time Test Comments Results Result Comments Source Vitamin D 2020-12-18 11:46:00 Test Item Value Reference Range Interpretation Comme nts Vitamin D 25-Hydroxy (test code = 15.9 ng/mL 6.6-49.9 2764) ANTHONY (test code = ANTHONY) Effective 09/08/2017: Reference Range ChangeNew: 6.6-49.9 ng/mL Previous: 13.0-47.8 ng/mL Recommended Vitamin D Target Range: 30.0-40.0 ng/mLOperator ID [employer] Lab Interpretation (test code = Normal 97812-4) [facility], [id number] 11:46:00 Test Item Value Reference Range Interpretation Comments VITAMIN D 25-OH (BEAKER) (test 15.9 ng/mL 6.6-49.9 code = 2764) Effective 09/08/2017: Reference Range ChangeNew: 6.6-49.9 ng/mL Previous: 13.0-47.8 ng/mLRecommended Vitamin D Target Range: 30.0-40.0 ng/mLOperator [place] [employer] SARANYA FBasic Metabolic [id number] 11:28:00 Test Item Value Reference Range Interpretation Comments Sodium (test code = 136 meq/L 980-399 2183-2) Potassium (test code = 4.3 meq/L 3.5-5.1 2823-3) Chloride (test code = 101 meq/L 98-107 2075-0) CO2 (test code = 30 meq/L 22-29 H 2028-9) BUN (test code = 19 mg/dL 7-21 3094-0) Creatinine (test code 1.34 mg/dL 0.57-1.25 H = 2160-0) Glucose (test code = 339 mg/dL 70-105 H 2345-7) Calcium (test code = 9.0 mg/dL 8.4-10.2 48388-8) EGFR (test code = 40 mL/min/1.73 [place] [address]-7) NOT ACCURATE CREATININE CLEARANCE IN PREDICTING GLOMERULAR FILTRATION RATE . ESTIMATED GFR I S NOT APPLICABLE FOR DIALYSIS PATIENTS. ANTHONY (test code = ANTHONY) [facility]y M[facility] ID [employer] [facility] Hernandez Lab Interpretation Abnormal (test code = 33299-4) [facility]OLIC [id number] 11:28:00 Test Item Value Reference Range Interpretation [...] S NOT APPLICABLE FOR DIALYSIS PATIEN TS. Hosiery Mater ID - [place] FB-type Natriuretic Factor (BNP)2020-11-15 14:51:00 Test Item Value Reference Range Interpretation Comments BNP (test code = 60519-0) 119 pg/mL 0-100 H Lab Interpretation (test code = Abnormal 00497-2) [facility] NAT[facility] FACTOR (BNP)2020-11-15 14:51:00 Test Item Value Reference Range Interpretation Comments B-TYPE NATRIURETIC PEPTIDE (BEAKER) 119 pg/mL 0-100 H (test code = 700) TSH/Free T4 If [id number] 12:42:00 Test Item Value Reference Range Interpretation Comments TSH (test code = 2.524 See_Comment [Automated 93244-0) message] The system which generated this result transmit layne reference range : 0.350 - 4.940 uIU/mL. The reference range was not used to interpret this result as normal/abnormal . ANTHONY (test code = ANTHONY) Hosiery Mater ID - ADMIN Lab Interpretation Normal (test code = 55417-1) [facility] and [id number] 12:42:00 Test Item Value Reference Range Interpretation Comments Vitamin B12 (test 307 pg/mL 213-816 code = 2132-9) Folate (test code = 11.90 ng/mL See_Comment [Automa layne 2284-8) message] The system which generated this result transmit layne reference range : >=7.00. The reference range was not used to interpret this result as normal/abnormal . ANTHONY (test code = ANTHONY) Hosiery Mater ID - ADMIN Lab Interpretation Normal (test code = 29083-4) [facility] T4 IF [id number] 12:42:00 Test Item Value Reference Range Interpretation Comments THYROID STIMULATING HORMONE 2.524 uIU/mL 0.350-4.940 (BEAKER) (test code = 772) Hosiery Mater ID - ADMINVITAMIN B12 AND [id number] 12:42:00 Test Item Value Reference Range Interpretation Comments VITAMIN B12 (BEAKER) (test code = 307 pg/mL 213-816 774) FOLATE (BEAKER) (test code = 362) 11.90 ng/mL >=7.00 Hosiery Mater ID - ADMINHemoglobin [id number] 12:22:00 Test Item Value Reference Range Interpretation Comments Hemoglobin A1C (test code = 4548-4) 9.7 % 4.3-6.1 H Lab Interpretation (test code = Abnormal 10519-1) [facility]HEMOGLOBIN [id number] 12:22:00 Test Item Value Reference Range Interpretation [...] = 2502-3) ANTHONY (test code = ANTHONY) Hosiery Mater ID - ADMIN Lab Interpretation (test Abnormal code = 21921-0) [facility] Center[facility], TIBC, % SAT. (WITHOUT FERRITIN)2020-11-15 12:07:00 Test Item Value Reference Range Interpretation Comments IRON (BEAKER) (test code = 547) 33.0 ug/dL 40.0-160.0 L TOTAL IRON BINDING CAPACITY 286 ug/dL 250-450 (BEAKER) (test code = 769) IRON % SATURATION (2) (BEAKER) 12 % 20-55 L (test code = 2590) Hosiery Mater ID - ADMINComprehensive metabolic [id number] 11:41:00 Test Item Value Reference Range Interpretation Comments Protein, Total (test 6.8 See_Comment [Autom ated code = 2885-2) message] The system which generated this result transmit layne reference range : 6.0 - 8.3 gm/dL . The reference range was not u sed to interpret th is result as normal/abnormal . Albumin (test code = 3.5 g/dL 3.5-5 03612-2) Alkaline Phosphatase 123 U/L 40-150 (test code [...] Calcium (test code = 8.9 mg/dL 8.4-10.2 57358-4) AST (test code = 19 U/L 5-34 1920-8) ALT (test code = 21 U/L 6-55 1742-6) EGFR (test code = 38 mL/min/1.73 [place] [address]-9) NOT ACCURATE CREATININE CLEARANCE IN PREDICTING GLOMERULAR FILTRATION RATE . ESTIMATED GFR I S NOT APPLICABLE FOR DIALYSIS PATIEN ANTHONY (test code = ANTHONY) Hosiery Mater ID - PIAYA L Lab Interpretation Abnormal (test code = 33225-5) [facility] CenterCOMPREHENSIVE METABOLIC [id number] 11:41:00 Test Item Value Reference Range Interpretation [...] S NOT APPLICABLE FOR DIALYSIS PATIEN TS. Hosiery Mater ID - PIAYA LCBC with platelet count + automated [id number] 11:22:00 Test Item Value Reference Range Interpretation Comments WBC (test code = 6690-2) 5.9 See_Comment [A utomated message] The system CloudBase[employer] generated this result transmitted ref erence range: 3.5 - 10 .5 K/L. The refe rence range was not u sed to interpret this result as normal/abnor mal. RBC (test code = 789-8) 4.34 See_Comment [Au tomated message] The system [employer]Base[employer] generated this result transmitted ref erence range: 3.93 - 5 .22 M/L. The refe rence range was not u sed to interpret this result as normal/abnor mal. MCHC (test code = 786-4) 32.2 See_Comment [A utomated message] The system CloudBase[employer] generated this result transmitted ref erence range: [...] See_Comment [Aut omated message] 777-3) The system [employer]Base[employer] generated this result transmitted ref erence range: 150 - 45 0 K/CU MM. The referen ce range was not u sed to interpret this result as normal/abnor mal. MPV (test code = 10.4 fL 9.4-12.3 21780-2) nRBC (test code = 413) 0 See_Comment [Aut omated message] The system [employer]Base3 generated this result transmitted ref erence range: [...] See_Comment [Aut omated message] 670) The system CloudBase3 generated this result transmitted ref erence range: 1.56 - 6 .13 K/L. The refe rence range was not u sed to interpret this result as normal/abnor mal. # Lymphs (test code = 1.34 See_Comment [Auto mated message] 414) The system [employer]Base3 generated this result transmitted ref erence range: 1.18 - 3 .74 K/L. The refe rence range was not u sed to interpret this result as normal/abnor mal. # Monos (test code = 0.42 See_Comment H [Autom ated message] 415) The system CloudBase3 generated this result transmitted ref erence range: 0.24 - 0 .36 K/L. The refe rence range was not u sed to interpret this result as normal/abnor mal. # Eos (test code = 416) 0.10 See_Comment [Au tomated message] The system CloudBase3 generated this result transmitted ref erence range: 0.04 - 0 .36 K/L. The refe rence range was not u sed to interpret this result as normal/abnor mal. # Baso (test code = 417) 0.01 See_Comment [A utomated message] The system CloudBase3 generated this result transmitted ref erence range: 0.01 - 0 .08 K/L. The refe rence range was not u sed to interpret this result as normal/abnor mal. Immature 0 % 0-1 Granulocytes-Relative (test code = 2801) Lab Interpretation (test Abnormal code = 47998-7) [facility] W/PLT COUNT & AUTO [id number] 11:22:00 Test Item Value Reference Range Interpretation [...] = 2801) CT, EXTREMITY, LOWER WITHOUT CONTRAST, [id number] 15:05:00Unlisted Reason for Exam - Click Yes [...] fluid. Mild osteoarthritis. Fibroid uterus. Signed: Thang Obrien MDReport Verified Date/Time: 07/29/2020 15:05:00 Reading Location: [facility] B1 C013X Ortho Consult Reading Room CT lower extremity without IV contrast [id number] 15:05:00Interface, External Ris In - 07/29/2020 3:07 [...] fluid. Mild osteoarthritis. Fibroid uterus. Signed: Thang Obrien MDReport Verified Date/Time: 07/29/2020 15:05:00 Reading Location: [facility] B1 C013X Ortho Consult Reading Room [facility] Prothrombin Gene [id number] 20:10:00 Test Item Value Reference Interpretation Comments Range PROTHROMBIN GENE SEE BELOW RESULT: G20 210A ANALYSIS (test code variant not detected = [id number]) Interpretation SEE BELOW INTERPRETATIO N: This (test code = individual is n egative 4863300) (normal) for th e [id number] variant in the Prothrombin/Fac tor II gene. Increased risk of thrombophili a can becaused by a v ariety of genetic and non-genetic fac tors not screened fo r bythis assay. Laboratory test ing supervised and results monitored by Zonia Vyas, Ph.D.,D ABMGG, [facility]. 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 Although rare, false positive or falsenegative r esults may occur. All results should be inter preted in context ofcl inical findings, relev ant history, and ot her laboratory data . Health care pro viders, please contact your local [employer]' geneticcounselo r or call [phone] ([phone]) for assistance withinterpretat ion of these results. This test was develo ped and its analytical performance characteristics havebeen determ ined by [employer] [facility] .It has not been cleare d or approved by FDA . This assay has been validatedpursua nt to the CLIA regula tions and is used for clinical purpos es. ANTHONY (test code = Performing Lab ANTHONY) EZ [employer] [facility] [address] [address] Eusebia Gonzalez MD, PhD, KATHIE [facility] CenterFactor 5 Leiden PCR (thrombotic risk)2020-07-24 18:04:00 Test Item Value Reference Interpretation Comments Range Factor V Leiden SEE BELOW RESULT: FACT OR V Mutation (test code LEIDEN ( R506Q) VARIANT = [id number]) NOT DETECTED Interpretation SEE BELOW INTERPRETATIO N: This (test code = individual is n egative 8673739) (normal) for th e Factor V Leiden (R506Q) variant in the Factor V gene. Increas ed risk of thrombophili a can becaused by a v ariety of genetic and non-genetic fac tors not screened fo r bythis assay. Laboratory test ing supervised and results monitored by Francine Mejia MD, PhD, FACMG, CGMBS. MUTATI ON ANALYSIS:The Fa ctor V Leiden [...] perf ormance characteristics havebeen determ ined by [employer] [facility] .It has not been cleare d or approved by FDA . This assay has been validatedpursua nt to the CLIA regula tions and is used for clinical purpos es. Health care pro viders, please contact your local [employer] geneticcounselo r or call [phone] ([phone]) for assistance withinterpretat ion of these results. ANTHONY (test code = Performing Lab ANTHONY) [employer] [facility] [address] [place] [address] Eusebia Gonzalez MD, PhD, KATHIE [facility] CenterPOC-Glucose [id number] 12:07:00 Test Item Value Reference Range Interpretation Comments POC-Glucose Meter (test 259 mg/dL 70-110 H : TE STED AT [facility] code = 1538) [address] [facility], 770 30: Hosiery Mater/Techni kate ID = [id number] for CORONA DUMONT Lab Interpretation (test Abnormal code = 37839-9) [facility] CenterPOCT-GLUCOSE [id number] 12:07:00 Test Item Value Reference Range Interpretation Comments POC-GLUCOSE METER 259 mg/dL 70-110 H : [facility] (BEAKER[facility] (test code = [facility], 1538) 227[address]: Hosiery Mater/Techni kate ID = [id number] for [place] POCT-GLUCOSE [id number] 08:02:00 Test Item Value Reference Range Interpretation Comments POC-GLUCOSE METER 206 mg/dL 70-110 H : TESTED A T [facility] 6720 (BEAKER) (test code = [facility], 1538) 30968: Hosiery Mater/Techni kate ID = [id number] for [place] [id number] 05:38:00 Test Item Value Reference Range Interpretation Comments Magnesium (test code = 1.8 mg/dL 1.6-2.6 51280-5) ANTHONY (test code = ANTHONY) Hosiery Mater ID - AMIRAH Das Lab Interpretation (test Normal code = 64495-9) [facility] Center[facility]osphorus2020-08-22 05:38:00 Test Item Value Reference Range Interpretation Comments Phosphorus (test code = 2.8 mg/dL 2.3-4.7 2777-1) ANTHONY (test code = ANTHONY) Hosiery Mater ID - AMIRAH Das Lab Interpretation (test Normal code = 83338-2) [facility] CenterPHOSPHORUS2020-08-22 05:38:00 Test Item Value Reference Range Interpretation Comments PHOSPHORUS (BEAKER) (test code = 2.8 mg/dL 2.3-4.7 604) Hosiery Mater ID - AMIRAH [id number] 05:38:00 Test Item Value Reference Range Interpretation Comments MAGNESIUM (BEAKER) (test code = 1.8 mg/dL 1.6-2.6 627) Hosiery Mater ID - AMIRAH MCOMPREHENSIVE METABOLIC [id number] 05:38:00 Test Item Value Reference Range Interpretation [...] S NOT APPLICABLE FOR DIALYSIS PATIEN TS. Hosiery Mater ID - AMIRAH MB-TYPE NATRIURETIC FACTOR (BNP)2020-07-20 05:34:00 Test Item Value Reference Range Interpretation Comments B-TYPE NATRIURETIC PEPTIDE (BEAKER) 213 pg/mL 0-100 H (test code = 700) Hosiery Mater ID - AMIRAH [facility] W/PLT COUNT & AUTO [id number] 05:16:00 Test Item Value Reference Range Interpretation [...] PERCENT (BEAKER) (test code = 2801) Calcium, [id number] 04:56:00 Test Item Value Reference Range Interpretation Comments Calcium, Ion (test code = 1993-) 1.16 mmol/L 1.12-1.27 pH, Blood (test code = 81957-3) 7.37 [facility], [id number] 04:56:00 Test Item Value Reference Range Interpretation Comments CALCIUM IONIZED (BEAKER) (test 1.16 mmol/L 1.12-1.27 code = 698) PH, BLOOD (BEAKER) (test code = 7.37 1810) POCT-GLUCOSE [id number] 21:18:00 Test Item Value Reference Range Interpretation Comments POC-GLUCOSE METER 333 mg/dL 70-110 H : TESTED A T [facility] 6720 (BEAKER) (test code = [facility], 153) 616[address]: Hosiery Mater/Techni kate ID = [id number] for SANDOVAL DEMARCOU POCT-GLUCOSE [id number] 17:10:00 Test Item Value Reference Range Interpretation Comments POC-GLUCOSE METER 286 mg/dL 70-110 H : TESTED A T [facility] 6720 (BEAKER) (test code = [facility], 153) 33946: Hosiery Mater/Techni kate ID = [id number] for [place] [id number] 14:08:00 Test Item Value Reference Range Interpretation Comments PHOSPHORUS (BEAKER) (test code = 2.9 mg/dL 2.3-4.7 604) Hosiery Mater ID - [id number] 14:08:00 Test Item Value Reference Range Interpretation Comments MAGNESIUM (BEAKER) (test code = 1.9 mg/dL 1.6-2.6 627) Hosiery Mater ID - NTPBASIC METABOLIC [id number] 14:08:00 Test Item Value Reference Range Interpretation [...] S NOT APPLICABLE FOR DIALYSIS PATIEN TS. Hosiery Mater ID - NTPCALCIUM, [id number] 13:10:00 Test Item Value Reference Range Interpretation Comments CALCIUM IONIZED (BEAKER) (test 1.15 mmol/L 1.12-1.27 code = 698) PH, BLOOD (BEAKER) (test code = 7.37 1810) CBC W/PLT COUNT & AUTO [id number] 13:10:00 Test Item Value Reference Range Interpretation [...] PERCENT (BEAKER) (test code = 2801) POCT-GLUCOSE [id number] 12:39:00 Test Item Value Reference Range Interpretation Comments POC-GLUCOSE METER 152 mg/dL 70-110 H : [facility] T [facility] (Growlife) (test code = [facility] 1538) [address]: Hosiery Mater/Techni kate ID = [id number] for [place] POCT-GLUCOSE [id number] 10:52:00 Test Item Value Reference Range Interpretation Comments POC-GLUCOSE METER 164 mg/dL 70-110 H : TESTED A T [facility] 6720 (Growlife) (test code = MENA Clemons [facility], 1538) [address]: Hosiery Mater/Techni kate ID = [id number] for IRINEO ROONEY POC ACTIVATED CLOTTING [id number] 09:42:00 Test Item Value Reference Range Interpretation Comments Activated Clotting Time 219 sec : 74 -137 seconds, (test code = 441) Baseline: TESTED AT [facility] [address] [place] [address], 770 [address]: Hosiery Mater/Techni kate ID = [id number] for MARINO OLMEDO [facility]POCT-[id number] 09:42:00 Test Item Value Reference Range Interpretation Comments ACTIVATED CLOTTING TIME 219 sec : 74 -137 seconds, (BEAKER) (test code = Baseli ne: TESTED AT 441) [address], 770 [address]: Hosiery Mater/Techni kate ID = [id number] for AMRINO OLMEDO [id number] 08:51:00 Test Item Value Reference Range Interpretation Comments ACTIVATED CLOTTING TIME 263 sec : 74 -137 seconds, (BEAKER) (test code = Baseli ne: TESTED AT 441) [address], 770 30: Hosiery Mater/Techni kate ID = [id number] for MARINO OLMEDO SARS-CoV2/RT-PCR (Asymptomatic ONLY)2020-07-19 00:30:00 Test Item Value Reference Range Interpretation Comments SARS-COV2/RT-PCR Negative Not Detected, (test code = Negative, See 42081-2) external report for linked test SARS-COV-2 [facility] KAY PERFORMING LAB (test code = 64612-6) ANTHONY (test code = Negative result for [...] of the Act. Fact Sheet for Healthcare Providers:https://www.[employer]/sites/default/f arnoldo/product/documents/F act_Sheet_HC_Providers_L tll_LXTM-ErZ-5.pdf Fact Sheet for Healthcare Patients:https://www.[employer]/sites/default/fi les/product/documents/Fa ct_Sheet_Patients_Lyra_S ARS-CoV-2.pdf Performing Laboratory:[place] [address] [address]ARS-[address]OV2/RT-PCR ([facility])2020-07-19 00:30:00 Test Item Value Reference Range Interpretation Comments SARS-COV2/RT-PCR (test Negative Not Detected, Negative, code = 5004264) See external report for linked test SARS-COV-[address] [facility] KAY (test code = 6990232) Negative result for this test determines that [...] 564(g) of the Act.Fact Sheet for Healthcare Providers:https://www.[employer].Parrut/sites/default/files/product/documents/Fact_Shee u_BM_Pqguccqvt_Avfj_EGBO-TxR-2.pdfFact Sheet for Healthcare Patients:https://www.[employer]arrut/sites/default/files/product/ documents/Bbht_Mbxsb_Ociybexa_Mnjc_ATJD-XfX-0.pdfPerforming Laboratory:[facility], [place] [address]MWSU-RJIKDTR METER 2020-07-18 21:25:00 Test Item Value Reference Range Interpretation Comments POC-GLUCOSE METER 111 mg/dL 70-110 H : TESTED A T [facility] 6720 (BEAKER) (test code = [facility], 153) [address]: Hosiery Mater/Techni kate ID = [id number] for LORI CALLAHAN POCT-GLUCOSE [id number] 16:05:00 Test Item Value Reference Range Interpretation Comments POC-GLUCOSE METER 265 mg/dL 70-110 H : TESTED A T [facility] 6720 (BEAKER) (test code = [facility], 153) [address]: Hosiery Mater/Techni kate ID = [id number] for FATOUMATA QUEEN TORRES [id number] 15:06:00 Test Item Value Reference Range Interpretation Comments PTT (test code = 57.6 See_Comment H [Automated message] 04823-0) The system CloudBase3 generated this result transmitted ref erence range: 22.5 - 3 6.0 seconds. The reference range was not used to int erpret this result as normal/abnormal . Lab Interpretation (test Abnormal code = 52126-1) [facility] CenterAPTT2020-[facility] 15:06:00 Test Item Value Reference Range Interpretation Comments PARTIAL THROMBOPLASTIN TIME 57.6 seconds 22.5-36.0 H (BEAKER) (test code = 760) POCT-GLUCOSE [id number] 11:35:00 Test Item Value Reference Range Interpretation Comments POC-GLUCOSE METER 255 mg/dL 70-110 H : TESTED A T [facility] 6720 (TIANAAKER) (test code = [place], 1538) [address]: Hosiery Mater/Techni kate ID = [id number] for QUEEN WHITING CT, [id number] 09:48:00Unlisted Reason for Exam - Click Yes [...] MDReport Verified Date/Time: 07/18/2020 09:48:22 Reading Location: [address] Radiology Reading RoomAddendum EndsFINAL REPORT CT [...] 3-D volume-rendering reconstruction was performed using an ind epForkforce workstation interactively by the interpreting physician as [...] dictated regarding the non-vascular findings by the Training And Development Manager Radiologist. Pertinent findings were discussed with the Training And Development Manager Ux Developer at the time of dictation. Signed: Trenton Schafer MDReport Verified Date/Time: 07/17/2020 17:23:49 Reading Location: [place] [address] [address] Reading Room CALCIUM, [id number] 08:20:00 Test Item Value Reference Range Interpretation Comments CALCIUM IONIZED (BEAKER) (test 1.15 mmol/L 1.12-1.27 code = 698) PH, BLOOD (BEAKER) (test code = 7.34 1810) POCT-GLUCOSE [id number] 08:01:00 Test Item Value Reference Range Interpretation Comments POC-GLUCOSE METER 184 mg/dL 70-110 H : TESTED A T [facility] 6720 (BEAKER) (test code = [facility], 1538) [address]: Hosiery Mater/Techni kate ID = [id number] for QUEEN WHITING CBC W/PLT COUNT & AUTO [id number] 07:17:00 Test Item Value Reference Range Interpretation [...] 0-1 PERCENT (BEAKER) (test code = 2801) [id number] 07:07:00 Test Item Value Reference Range Interpretation Comments PHOSPHORUS (BEAKER) (test code = 3.0 mg/dL 2.3-4.7 604) Hosiery Mater ID - [id number] 07:07:00 Test Item Value Reference Range Interpretation Comments MAGNESIUM (BEAKER) (test code = 1.8 mg/dL 1.6-2.6 627) Hosiery Mater ID - EDASICOMPREHENSIVE METABOLIC [id number] 07:07:00 Test Item Value Reference Range Interpretation [...] S NOT APPLICABLE FOR DIALYSIS PATIEN TS. Hosiery Mater ID - [id number] 06:26:00 Test Item Value Reference Range Interpretation Comments PARTIAL THROMBOPLASTIN TIME 60.2 seconds 22.5-36.0 H (BEAKER) (test code = 760) While on warfarin.Daily Prothrombin time/INR while on [id number] 06:24:00 Test Item Value Reference Interpretation Comments Range Protime (test code = 14.2 See_Comment [Autom ated 1252-2) message] The system which generated this result transmitted reference range : 11.9 - 14.2 seconds. The reference range was not used to interpret this result as normal/abnormal . INR (test code = 1.14 See_Comment [Automated 8311-6) message] The system which generated this result [...] warfarin. Lab Interpretation Normal (test code = 84349-0) [facility] CenterPROTHROMBIN TIME/[id number] 06:24:00 Test Item Value Reference Range Interpretation [...] for patients wiht mechanical heart valves.While on warfarin.[id number] 23:06:00 Test Item Value Reference Range Interpretation Comments PARTIAL THROMBOPLASTIN TIME 49.8 seconds 22.5-36.0 H (BEAKER) (test code = 760) [id number] 21:00:00 Test Item Value Reference Range Interpretation Comments PARTIAL THROMBOPLASTIN TIME 117.2 seconds 22.5-36.0 H (BEAKER) (test code = 760) POCT-GLUCOSE [id number] 20:08:00 Test Item Value Reference Range Interpretation Comments POC-GLUCOSE METER 182 mg/dL 70-110 H : TESTED A T [facility] 6720 (BEAKER) (test code = [facility] [place], 1538) [address]: Hosiery Mater/Techni kate ID = [id number] for [place] LMORE, KHALIDA CT abdomen/pelvis without & with IV [id number] 17:23:00Interface, External Ris In - 07/18/2020 9:50 [...] may be obtained for further evaluation. Signed: Lee Anneusebia Chemayong MDReport Verified Date/Time: 07/18/2020 09:48:22 Reading Location: [address] Radiology Reading RoomAddendum EndsFINAL REPORT CT [...] regarding the non- vascular findings by the Training And Development Manager Radiologist. Pertinent findings were discussed with the Training And Development Manager Ux Developer at the time of dictation. Signed: Trenton Schafer Verified Date/Time: 07/17/2020 17:23:49 Reading Location: [place] [address] [address] Reading Room [facility] 2020-07-17 15:38:00 Test Item Value Reference Range Interpretation Comments POC-GLUCOSE METER 233 mg/dL 70-110 H : TESTED A T [facility] 6720 (BEAKER) (test code = [facility]SELMODAILY Clemons [facility], 1538) [address]: Hosiery Mater/Techni kate ID = [id number] for QUEEN WHITING [id number] 12:55:00 Test Item Value Reference Range Interpretation Comments PARTIAL THROMBOPLASTIN TIME 98.3 seconds 22.5-36.0 H (BEAKER) (test code = 760) POCT-GLUCOSE [id number] 11:33:00 Test Item Value Reference Range Interpretation Comments POC-GLUCOSE METER 253 mg/dL 70-110 H : TESTED A T [facility] 6720 (BEAKER) (test code = [place], 1538) [address]: Hosiery Mater/Techni kate ID = [id number] for QUEEN WHITING ECG 12 [id number] 08:31:32Interface, External Ris In - 07/17/2020 8:31 AM CDTVentricular Rate 69 BPMAtrial Rate 69 BPMP-R Interval 188 msQRS Duration 120 msQ-T Interval 444 msQTC Calculation(Bazett) 475 msP [place] 12 degreesR [place] -48 degreesT [place] 84 degreesSinus rhythm with frequent Premature ventricular complexesLeft axis deviationLeft bundle branch blockAbnormal ECGWhen compared with ECG of 25-FEB-2017 07:18,Premature ventricular complexes are now PresentQRS duration has decreasedAnterolateral infarct is now PresentT waveinversion no longer evident in Inferior leadsLeft axis deviation now presentConfirmed by Michael Coyle ([id number]) on 07/17/2020 8:31:30 [facility] CenterPO[facility]- GLUCOSE [id number] 07:41:00 Test Item Value Reference Range Interpretation Comments POC-GLUCOSE METER 203 mg/dL 70-110 H : TESTED A T [facility] 6720 (TIANAAKER) (test code = [place], 1538) [address]: Hosiery Mater/Techni kate ID = [id number] for QUEEN WHITING Creatine Kinase (CK)2020-07-17 07:18:00 Test Item Value Reference Range Interpretation Comments Total CK (test code = 48 U/L 29-200 2157-6) ANTHONY (test code = ANTHONY) Hosiery Mater ID - NTP Lab Interpretation (test Normal code = 49829-2) [facility] CenterUric [id number] 07:18:00 Test Item Value Reference Range Interpretation Comments Uric Acid (test code = 9.5 mg/dL 2.6-7.2 H 3084-1) ANTHONY (test code = ANTHONY) Hosiery Mater ID - NTP Lab Interpretation (test Abnormal code = 78826-9) [facility] CenterURIC [id number] 07:18:00 Test Item Value Reference Range Interpretation Comments URIC ACID (BEAKER) (test code = 9.5 mg/dL 2.6-7.2 H 773) Hosiery Mater ID - [id number] 07:18:00 Test Item Value Reference Range Interpretation Comments MAGNESIUM (BEAKER) (test code = 1.8 mg/dL 1.6-2.6 627) Hosiery Mater ID - [id number] 07:18:00 Test Item Value Reference Range Interpretation Comments PHOSPHORUS (BEAKER) (test code = 3.2 mg/dL 2.3-4.7 604) Hosiery Mater ID - NTPCOMPREHENSIVE METABOLIC [id number] 07:18:00 Test Item Value Reference Range Interpretation [...] S NOT APPLICABLE FOR DIALYSIS PATIEN TS. Hosiery Mater ID - NTPCREATINE KINASE (CK)2020-07-17 07:18:00 Test Item Value Reference Range Interpretation Comments CREATINE KINASE TOTAL (BEAKER) (test 48 U/L 29-200 code = 380) Hosiery Mater ID - NTPB-TYPE NATRIURETIC FACTOR (BNP)2020-07-17 07:05:00 Test Item Value Reference Range Interpretation Comments B-TYPE NATRIURETIC PEPTIDE (BEAKER) 55 pg/mL 0-100 (test code = 700) Hosiery Mater ID - NTPCALCIUM, [id number] 06:53:00 Test Item Value Reference Range Interpretation Comments CALCIUM IONIZED (BEAKER) (test 1.17 mmol/L 1.12-1.27 code = 698) PH, BLOOD (BEAKER) (test code = 7.33 1810) [id number] 06:41:00 Test Item Value Reference Range Interpretation Comments PARTIAL THROMBOPLASTIN TIME 84.5 seconds 22.5-36.0 H (BEAKER) (test code = 760) While on warfarin.PROTHROMBIN TIME/[id number] 06:40:00 Test Item Value Reference Range Interpretation [...] valves.While on warfarin.CBC W/PLT COUNT & AUTO [id number] 06:34:00 Test Item Value Reference Range Interpretation [...] 0-1 PERCENT (BEAKER) (test code = 2801) [id number] 23:42:00 Test Item Value Reference Range Interpretation Comments PARTIAL THROMBOPLASTIN TIME 68.6 seconds 22.5-36.0 H (BEAKER) (test code = 760) POCT-GLUCOSE [id number] 20:54:00 Test Item Value Reference Range Interpretation Comments POC-GLUCOSE METER 206 mg/dL 70-110 H : TESTED A T [facility] 6720 (RAQUEL) (test code = [place], 1538) [address]: Hosiery Mater/Techni kate ID = [id number] for FREDDIE BELLA TTE U/S, RENAL, [id number] 20:34:00Reason for exam:->AKIFINAL REPORT Ultrasound of the [...] Galo Verified Date/Time: 07/16/2020 20:34:22 US renal [id number] 20:34:00Interface, External Ris In - 07/16/2020 8:36 [...] Signed: Kiki Galo Verified Date/Time: 07/16/2020 20:34:22 [facility] Creatinine, random [id number] 18:48:00 Test Item Value Reference Range Interpretation Comments Creatinine, Ur 180.8 mg/dL (test code = 2161-8) ANTHONY (test code = Reference Range: No ANTHONY) NormalsOperator ID - [facility] CenterProtein, random [id number] 18:48:00 Test Item Value Reference Range Interpretation Comments Protein, Urine (test code = 27 mg/dL 0-14 H 2888-6) ANTHONY (test code = ANTHONY) Hosiery Mater ID - Lab Interpretation (test Abnormal code = 83985-6) [facility] [id number] 18:48:00 Test Item Value Reference Range Interpretation Comments Sodium Urine (test 28 meq/L code = 2955-3) ANTHONY (test code = Reference Range: No ANTHONY) NormalsOperator ID - [facility] CenterCREATININE, RANDOM [id number] 18:48:00 Test Item Value Reference Range Interpretation Comments CREATININE URINE (BEAKER) (test 180.8 mg/dL code = 375) Reference Range: No NormalsOperator ID - ASPROTEIN, RANDOM [id number] 18:48:00 Test Item Value Reference Range Interpretation Comments PROTEIN, URINE (BEAKER) (test code = 27 mg/dL 0-14 H 1569) Hosiery Mater ID - ASSODIUM, RANDOM [id number] 18:48:00 Test Item Value Reference Range Interpretation Comments SODIUM URINE (BEAKER) (test code = 28 meq/L 243) Reference Range: No NormalsOperator ID - ASUrinalysis w/[id number] 17:19:00 Test Item Value Reference Range Interpretation Comments Color, UA (test code Yellow = 5778-6) Clarity, UA (test Clear code = 5767-9) Specific [place], UA 1.019 1.001-1.035 (test code = 5811-5) pH, UA (test code = 5.5 5.0-8.0 5803-2) Protein, UA (test 10 mg/dL Negative A code = 99155-5) Glucose, UA (test Negative Negative code = 365) Ketones, UA (test Negative Negative code = 2514-8) Bilirubin, UA (test Negative Negative code = 35101-1) Blood, UA (test code Negative Negative = 72937-6) Nitrite, UA (test Negative Negative code = 5802-4) Leukocytes, UA (test Negative Negative code = 5799-2) Urobilinogen, UA 0.2 mg/dL 0.2-1 (test code = 36809-4) RBC, UA (test code = <1 See_Comment [Autom ated 81959-8) message] The system which generated this result [...] . Bacteria, UA (test Few code = 22071-6) Squam Epithel, UA 4 See_Comment [Automate d (test code = 84455-1) messag e] The system which generated this result transmit layne reference range : /HPF. The reference range was not used to interpret this result as normal/abnormal . Hyaline Casts, UA 7 See_Comment [Automate d (test code = 70212-9) messag e] The system which generated this result transmit layne reference range : /LPF. The reference range was not used to interpret this result as normal/abnormal . Specimen Source (test code = 2795) ANTHONY (test code = ANTHONY) Hosiery Mater ID - [auto]Hosiery Mater ID - nidia Lab Interpretation Abnormal (test code = 24912-0) [facility] CenterURINALYSIS W/ [id number] 17:19:00 Test Item Value Reference Range Interpretation [...] /LPF 514) SOURCE(BEAKER) (test code = 2795) Hosiery Mater ID - [auto]Hosiery Mater ID - [id number] 17:07:00 Test Item Value Reference Range Interpretation Comments PARTIAL THROMBOPLASTIN TIME 88.9 seconds 22.5-36.0 H (BEAKER) (test code = 760) POCT-GLUCOSE [id number] 16:59:00 Test Item Value Reference Range Interpretation Comments POC-GLUCOSE METER 199 mg/dL 70-110 H : TESTED A T [facility] 6720 (BEAKER) (test code = [place] [facility], 1538) [address]: Hosiery Mater/Techni kate ID = [id number] for BAHMAN KNAPP RAD, CHEST, 1 VIEW, NON [id number] 15:56:00Reason for exam:->Fluid overloadShould this be performed at the bedside?->YesFINAL REPORT CLINICAL HISTORY: Fluid overload TECHNIQUE: 1 view of the chest. COMPARISON: 02/25/2017 IMPRESSION: There are no focal infiltrates or effusions. The cardiomediastinal silhouette is magnified by technique. The osseous structures appear intact. Signed: Petar Sidhueport Verified Date/Time: 07/16/2020 15:56:06 Reading Location: [facility] Radiology Reading Room XR chest 1 view portable / [id number] 15:56:00Interface, External Ris In - 07/16/2020 3:58 PM CDTFINAL REPORT CLINICAL HISTORY: Fluid overload TECHNIQUE: 1 view of the chest. COMPARISON: 02/25/2017 IMPRESSION: There are no focal infiltrates or effusions. The cardiomediastinal silhouette is magnified by technique. The osseous structures appear intact. Signed: Petar Sidhu MDReport Verified Date/Time: 07/16/2020 15:56:06 Reading Location: [facility] Radiology Reading Room [facility] CenterPOCT- GLU[facility]SE [id number] 13:35:00 Test Item Value Reference Range Interpretation Comments POC-GLUCOSE METER 249 mg/dL 70-110 H : TESTED A T [facility] 6720 ([employer]) (test code = MENA [place] [facility], 1538) [address]: Hosiery Mater/Techni kate ID = [id number] for YENIFER MOSLEY 2D Echo W/Doppler(CW/PW/Color)2020-07-16 13:16:55Ejection FractionSLEH ECHO HEARTLAB MKCKESSON CPACSInterface, External Ris In - 07/16/2020 1:17 PM C DTTransthoracic Echocardiography Report (TTE) Demographics Patient Name SHELTON, Date of Study 07/16/2020 AME Gender Female Visit Number [id number] Race Unknown Room Number 914 Number Date of 1960 Referring Tonie Melendez MD Physician Age 60 year(s) [employer] Worker SANGEETHA Christianson, RDCS,RVT,RDMS Interpreting Michael Coyle MD Physician Procedure [...] Velocity: 2.58 m/s TR Gradient: 26.62 mmHgCHI Woodland [facility] HospitalPUL PERF IMAGING, [id number] 11:47:00Unlisted Reason for Exam - Click Yes and Enter Reason Below->Yes Unlisted Reason for Exam->Positive extensive LLE DVT, dyspneaFINAL REPORT PROCEDURE: LUNG SCAN - perfusion only CPT CODE: 27368 INDICATION: PE suspected, high pretest probability, positive [...] embolus cannot be excluded Signed: Nicko Maynard MDRdaniel Verified Date/Time: 07/16/2020 11:47:57 Reading Locat ion: [address] [address] Med Reading Room Electronically signed by: NICKO MAYNARD MD on07/16/2020 11:47 AMNM lung perfusion [id number] 11:47:00Interface, External Ris In - 07/16/2020 11:50 AM CDTFINAL REPORT PROCEDURE: LUNG SCAN - perfusion only CPT CODE: 51449 INDICATION: PE suspected, high pretest probability, positive [...] embolus cannot be excluded Signed: Nicko Maynard Verified Date/Time: 07/16/2020 11:47:57 Reading Location: [address] Med Reading Room [facility]HEMO[facility] [id number] 11:33:00 Test Item Value Reference Range Interpretation Comments HEMOGLOBIN A1C (BEAKER) (test code = 9.6 % 4.3-6.1 H 368) Venous doppler leg, [id number] 10:46:03Ejection FractionSLEH ECHO HEARTLAB MKCKESSON CPACS Left Impression1. There is total mildly echogenic [...] Study 07/15/2020 AME Age 60 Visit Number [id number] Gender Female Accession Number [id number] Date of 1960 Referring Anny Mendieta Room Number 914 Physician Bridge [employer] Worker Pineda Chua Interpreting Aurora Araiza MD RVS Physician ProcedureType of Study: Veins: Lower Extremities DVT Study, VENOUS DOPPLER LEG, LEFT. Indications for Study:Leg swelling and Redness .Patient Status:STAT.Study Location:Portable.Technical Quality:Adequate visualization. - Results were reported to: Dr. Mendieta @ 18:30.Risk FactorsHistory of Disease+ +----+------ +!Diagnosis !Date!Comments !+ +----+ +!Hi story/Risk ! !Previous history of DVT'2008 as per patient, !!Factors: ! !Morbid obesity [...] in cm/s ; [facility] 2020-[facility]-16 09:43:00 Test Item Value Reference Range Interpretation Comments PARTIAL THROMBOPLASTIN TIME 91.3 seconds 22.5-36.0 H (BEAKER) (test code = 760) [id number] 08:48:00 Test Item Value Reference Range Interpretation Comments PARTIAL THROMBOPLASTIN TIME > seconds 22.5-36.0 HH (BEAKER) (test code = 760) POCT-GLUCOSE [id number] 07:50:00 Test Item Value Reference Range Interpretation Comments POC-GLUCOSE METER 179 mg/dL 70-110 H : TESTED A T [facility] 6720 (BEAKER) (test code = [place], 1538) [address]: Hosiery Mater/Techni kate ID = [id number] for BAHMAN KNAPP BASIC METABOLIC [id number] 06:44:00 Test Item Value Reference Range Interpretation [...] S NOT APPLICABLE FOR DIALYSIS PATIEN TS. Hosiery Mater ID - [id number] 06:36:00 Test Item Value Reference Range Interpretation Comments PARTIAL THROMBOPLASTIN TIME > seconds 22.5-36.0 HH (BEAKER) (test code = 760) PROTHROMBIN TIME/[id number] 06:17:00 Test Item Value Reference Range Interpretation [...] See_Comment H [A utomated message] The system [employer] generated this result transmitted ref erence range: 3.5 - 10 .5 K/L. The refe rence range was not u sed to interpret this result as normal/abnor mal. RBC (test code = 789-8) 3.73 See_Comment L [Au tomated message] The system [employer] generated this result transmitted ref erence range: 3.93 - 5 .22 M/L. The refe rence range was not u sed to interpret this result as normal/abnor mal. MCHC (test code = 786-4) 32.9 See_Comment [A utomated message] The system [employer] generated this result transmitted ref erence range: [...] See_Comment [Aut omated message] 777-3) The system [employer] generated this result transmitted ref erence range: 150 - 45 0 K/CU MM. The referen ce range was not u sed to interpret this result as normal/abnor mal. MPV (test code = 10.5 fL 9.4-12.3 32887-7) nRBC (test code = 413) 0 See_Comment [Aut omated message] The system [employer] generated this result transmitted ref erence range: 0 - 0 /1 00 WBC. The refere nce range was not u sed to interpret this result as normal/abnor mal. Lab Interpretation (test Abnormal code = 73393-3) [facility] W/PLT COUNT & AUTO [id number] 05:37:00 Test Item Value Reference Range Interpretation [...] (BEAKER) (test code = 413) CREATININE, RANDOM [id number] 04:55:00 Test Item Value Reference Range Interpretation Comments CREATININE URINE (BEAKER) (test 135.0 mg/dL code = 375) Reference Range: No NormalsOperator ID - DBSODIUM, RANDOM [id number] 04:55:00 Test Item Value Reference Range Interpretation [...] S NOT APPLICABLE FOR DIALYSIS PATIEN TS. Hosiery Mater ID - [id number] 15:22:00 Test Item Value Reference Range Interpretation Comments PARTIAL THROMBOPLASTIN TIME 27.9 seconds 22.5-36.0 (BEAKER) (test code = 760) PROTHROMBIN TIME/[id number] 15:21:00 Test Item Value Reference Range Interpretation [...] mechanical heart valves.CBC W/PLT COUNT & AUTO [id number] 15:16:00 Test Item Value Reference Range Interpretation [...] PERCENT (BEAKER) (test code = 2801) HEMOGLOBIN [id number] 14:11:00 Test Item Value Reference Range Interpretation Comments HEMOGLOBIN A1C (BEAKER) (test code = 9.4 % 4.3-6.1 H 368) TSH/FREE T4 IF [id number] 12:24:00 Test Item Value Reference Range Interpretation Comments THYROID STIMULATING HORMONE 1.808 uIU/mL 0.350-4.940 (BEAKER) (test code = 772) Hosiery Mater ID - ADMINLipid [id number] 12:05:00 Test Item Value Reference Range Interpretation Comments Triglycerides (test 135 mg/dL code = 2571-8) Cholesterol (test code 111 mg/dL = 2093-3) HDL (test code = 31 mg/dL 5-9) LDL Calculated (test 53 mg/dL code = 18000-9) ANTHONY (test code = ANTHONY) Triglyceride Reference Range: Low Risk <150 Borderline 150-199 High Risk 200-499 Very High Risk >=500 Cholesterol Reference Range: Low Risk <200 Borderline 200-239 High Risk >240 HDL Cholesterol Reference Range: Low Risk >=60 High Risk <40 LDL Cholesterol Reference Range: Optimal <100 Near Optimal 100-129 Borderline 130-159 High 160-189 Very High >=190 Hosiery Mater ID - ADMIN [facility] CenterLIPID [id number] 12:05:00 Test Item Value Reference Range Interpretation [...] Borderline 130-159 High 160-189 Very High >=190 Hosiery Mater ID - ADMINCOMPREHENSIVE METABOLIC [id number] 12:05:00 Test Item Value Reference Range Interpretation [...] S NOT APPLICABLE FOR DIALYSIS PATIEN TS. Hosiery Mater ID - ADMINHEMOGLOBIN [id number] 12:22:00 Test Item Value Reference Range Interpretation Comments HEMOGLOBIN A1C (BEAKER) (test code = 8.2 % 4.3-6.1 H 368) TSH/FREE T4 IF [id number] 11:50:00 Test Item Value Reference Range Interpretation Comments THYROID STIMULATING HORMONE 2.52 uIU/mL 0.35-4.94 (BEAKER) (test code = 772) COMPREHENSIVE METABOLIC [id number] 11:34:00 Test Item Value Reference Range Interpretation [...] PATIEN TS. CBC W/PLT COUNT & AUTO [id number] 11:15:00 Test Item Value Reference Range Interpretation [...] (BEAKER) (test code = 2801) BASIC METABOLIC [id number] 13:57:00 Test Item Value Reference Range Interpretation [...] PATIEN TS. CBC W/PLT COUNT & AUTO [id number] 13:35:00 Test Item Value Reference Range Interpretation [...] PERCENT (BEAKER) (test code = 2801) HEMOGLOBIN [id number] 13:45:00 Test Item Value Reference Range Interpretation Comments HEMOGLOBIN A1C (BEAKER) (test code = 7.9 % 4.3-6.1 H 368) TSH/FREE T4 IF [id number] 12:54:00 Test Item Value Reference Range Interpretation Comments THYROID STIMULATING HORMONE 2.71 uIU/mL 0.35-4.94 (BEAKER) (test code = 772) LIPID [id number] 11:16:00 Test Item Value Reference Range Interpretation [...] 130-159 High 160-189 Very High >=190COMPREHENSIVE METABOLIC [id number] 11:16:00 Test Item Value Reference Range Interpretation [...] PATIEN TS. CBC W/PLT COUNT & AUTO [id number] 10:52:00 Test Item Value Reference Range Interpretation [...] PERCENT (BEAKER) (test code = 2801) HEMOGLOBIN [id number] 11:30:00 Test Item Value Reference Range Interpretation Comments HEMOGLOBIN A1C (BEAKER) (test code = 8.5 % 4.3-6.1 H 368) HEMOGLOBIN [id number] 13:33:00 Test Item Value Reference Range Interpretation Comments HEMOGLOBIN A1C (BEAKER) (test code = 10.9 % 4.3-6.1 H 368) TSH/FREE T4 IF [id number] 12:27:00 Test Item Value Reference Range Interpretation Comments THYROID STIMULATING HORMONE 2.33 uIU/mL 0.35-4.94 (BEAKER) (test code = 772) LIPID [id number] 12:10:00 Test Item Value Reference Range Interpretation [...] 130-159 High 160-189 Very High >=190COMPREHENSIVE METABOLIC [id number] 12:10:00 Test Item Value Reference Range Interpretation [...] NOT APPLICABLE FOR DIALYSIS PATIEN TS. HEMOGLOBIN [id number] 13:44:00 Test Item Value Reference Range Interpretation Comments HEMOGLOBIN A1C (BEAKER) (test code = 10.8 % 4.3-6.1 H 368) HEMOGLOBIN [id number] 09:58:00 Test Item Value Reference Range Interpretation Comments HEMOGLOBIN A1C (BEAKER) (test code = 8.3 % 4.3-6.1 H 368) TSH/FREE T4 IF [id number] 13:49:00 Test Item Value Reference Range Interpretation Comments THYROID STIMULATING HORMONE 1.94 uIU/mL 0.35-4.94 (BEAKER) (test code = 772) HEMOGLOBIN [id number] 12:27:00 Test Item Value Reference Range Interpretation Comments HEMOGLOBIN A1C (BEAKER) (test code = 11.3 % 4.3-6.1 H 368) LIPID [id number] 11:56:00 Test Item Value Reference Range Interpretation [...] 130-159 High 160-189 Very High >=190COMPREHENSIVE METABOLIC [id number] 11:56:00 Test Item Value Reference Range Interpretation [...] S NOT APPLICABLE FOR DIALYSIS PATIEN TS. [id number] 09:01:00 Test Item Value Reference Range Interpretation [...] 95-100% range. CREATINE KINASE (CK), TOTAL AND [id number] 09:01:00 Test Item Value Reference Range Interpretation Comments CREATINE KINASE TOTAL (BEAKER) 43 U/L 29-200 (test code = 380) CREATINE KINASE-MB (BEAKER) (test 0.7 ng/mL 0.0-6.6 code = 750) CREATINE KINASE-MB INDEX (BEAKER) 1.6 % (test code = 395) Effective 10/16/2014: CK-MB Reference Range ChangeNew: 0.0-6.6 Previous: 0.0-4.9CK-MB Reference Range:<6.7 Normal6.7-10.0 Borderline>10.0 AbnormalTROPONIN [id number] 09:01:00 Test Item Value Reference Range Interpretation [...] acute neurological disease, and persistent tachyarrhythmia.BASIC METABOLIC [id number] 08:53:00 Test Item Value Reference Range Interpretation [...] PATIEN TS. CBC W/PLT COUNT & AUTO [id number] 08:30:00 Test Item Value Reference Range Interpretation [...]
[2021-03-28 02:30] LABS: Absolute Lymphocytes (CBC) 1.3 K/uL (0.7-4.9); Basophils % 0.2 % (0-1.3); Hematocrit 38.6 % (36.0-45.0); Lymphocytes % 10.9 % (15.3-44.8); MPV 9.5 fL (7.6-11.3); RBC Red Blood Cell Count 4.24 M/uL (3.86-4.86)
[2021-03-28 02:31] LABS: Protime INR 0.95
[2021-03-28 03:26] LABS: ALT/SGPT 24 U/L (12-78); AST/SGOT 16 U/L (15-37); Albumin 3.5 g/dL (3.4-5.0); Alkaline Phosphatase 120 U/L (45-117); BUN Blood Urea Nitrogen 32 mg/dL (7-18); Bicarbonate 27 mmol/L (21-32); Bilirubin Direct 0.1 mg/dL (0-0.2); Bilirubin Total 0.4 mg/dL (0.2-1.0); Magnesium 2.5 mg/dL (1.8-2.4); NT PRO-BNP 1204 pg/mL (<125); Potassium 4.3 mmol/L (3.5-5.1); Protein, Total 7.4 g/dL (6.4-8.2); Sodium Level 133 mmol/L (136-145); Troponin (Emerg Dept Use Only) < 0.02 ng/mL (0.0-0.045)
[2021-03-28 03:30] LABS: Glucose Level 425 mg/dL (74-106)
[2021-03-28] MEDS ORDERED: INSULIN -REGULAR HUMAN 50 UNIT/0.5 ML ML ONE (04:09)
[2021-03-28 05:12] LABS: Urine Blood Trace-intact (Negative); Urine Glucose 2+ (Negative); Urine Protein 2+ (Negative); Urine Specific Gravity 1.015 (1.005-1.030); Urine pH 5.5 (5.0-7.0)
--- NOTE | 2021-03-28 06:00 | EDPHYS ---
Physician Documentation [facility] – [place], [place] Name: Terese Alaniz Age: 61 yrs Sex: Female : 1960 Arrival Date: 03/27/2021 Time: 23:22 Bed 28 Private MD: ED Physician Hilario Francis HPI: 03/28 05:30 This 61 yrs old Female presents to ER via Ambulatory with complaints of High mh7 Blood Sugar. 05:30 The patient or guardian reports hyperglycemia, that was potentially precipitated by mh7 steroid medication, with the patient's symptoms witnessed by family, Treatment prior to arrival includes:. Onset: The symptoms/episode began/occurred last night. 05:31 Associated signs and symptoms: Pertinent positives: polydipsia, polyuria, Pertinent mh7 negatives: anorexia, constipation, decreased urine output, diaphoresis, diarrhea, dry skin, hair loss, ketones in urine, nausea, polyphagia, seizure activity, skin flushing, urinary incontinence, vomiting. Current symptoms: In the emergency department the patient's symptoms have improved, moderately. The patient has been recently seen at the [facility] Emergency Department, yesterday. Historical: - Allergies: 00:04 No Known Allergies; jb4 - PMHx: 00:04 CHF; Diabetes - IDDM; High Cholesterol; Hypertension; jb4 - Immunization history:: Adult Immunizations up to date. - Social history:: Smoking status: Patient denies any tobacco usage or history of. Patient/guardian denies using alcohol, street drugs. ROS: 05:31 Constitutional: Negative for fever, chills, and weight loss, Eyes: Negative for injury, mh7 pain, redness, and discharge, ENT: Negative for injury, pain, and discharge, Neck: Negative for injury, pain, and swelling, Cardiovascular: Negative for chest pain, palpitations, and edema, Respiratory: Negative for shortness of breath, cough, wheezing, and pleuritic chest pain, Abdomen/GI: Negative for abdominal pain, nausea, vomiting, diarrhea, and constipation, Back: Negative for injury and pain, : Negative for injury, bleeding, discharge, and swelling, MS/Extremity: Negative for injury and deformity, Skin: Negative for injury, rash, and discoloration, Neuro: Negative for headache, weakness, numbness, tingling, and seizure, Psych: Negative for depression, anxiety, suicide ideation, homicidal ideation, and hallucinations, Allergy/Immunology: Negative for hives, rash, and allergies, Hematologic/Lymphatic: Negative for swollen nodes, abnormal bleeding, and unusual bruising. Exam: 05:31 Constitutional: This is a well developed, well nourished patient who is awake, alert, mh7 and in no acute distress. Head/Face: Normocephalic, atraumatic. Eyes: Pupils equal round and reactive to light, extra-ocular motions intact. Lids and lashes normal. Conjunctiva and sclera are non-icteric and not injected. Cornea within normal limits. Periorbital areas with no swelling, redness, or edema. Neck: Trachea midline, no thyromegaly or masses palpated, and no cervical lymphadenopathy. Supple, full range of motion without nuchal rigidity, or vertebral point tenderness. No Meningismus. Chest/axilla: Normal chest wall appearance and motion. Nontender with no deformity. No lesions are appreciated. Cardiovascular: Regular rate and rhythm with a normal S1 and S2. No gallops, murmurs, or rubs. Normal PMI, no JVD. No pulse deficits. Respiratory: Lungs have equal breath sounds bilaterally, clear to auscultation and percussion. No rales, rhonchi or wheezes noted. No increased work of breathing, no retractions or nasal flaring. Abdomen/GI: Soft, non-tender, with normal bowel sounds. No distension or tympany. No guarding or rebound. No evidence of tenderness throughout. Back: No spinal tenderness. No costovertebral tenderness. Full range of motion. Skin: Warm, dry with normal turgor. Normal color with no rashes, no lesions, and no evidence of cellulitis. MS/ Extremity: Pulses equal, no cyanosis. Neurovascular intact. Full, normal range of motion. Neuro: Awake and alert, GCS 15, oriented to person, place, time, and situation. Cranial nerves II-XII grossly intact. Motor strength 5/5 in all extremities. Sensory grossly intact. Cerebellar exam normal. Normal gait. Psych: Awake, alert, with orientation to person, place and time. Behavior, mood, and affect are within normal limits. Vital Signs: 00:02 BP 144 / 69; Pulse 73; Resp 20; Temp 98.0(O); Pulse Ox 93% on R/A; Weight 108.86 kg; jb4 Height 5 ft. 4 in. (162.56 cm) (R); Pain 0/10; 02:42 BP 140 / 74; Pulse 74; Resp 22; Pulse Ox 95% on R/A; jm8 05:45 BP 133 / 50; Pulse 72; Resp 18; Pulse Ox 95% on 2 lpm NC; 8 00:02 Body Mass Index 41.20 (108.86 kg, 162.56 cm) jb4 MDM: 05:58 Differential diagnosis: DKA, hyperglycemia. Data reviewed: vital signs, nurses notes, [address] medical records, lab test result(s), cardiac enzymes, CBC, electrolytes, EKG, radiologic studies, plain films. Data interpreted: Pulse oximetry: on room air is 96 %. Interpretation: normal. Counseling: I had a detailed discussion with the patient and/or guardian regarding: the historical points, exam findings, and any diagnostic results supporting the discharge/admit diagnosis, lab results, radiology results, the need for outpatient follow up, to return to the emergency department if symptoms worsen or persist or if there are any questions or concerns that arise at home. Response to treatment: the patient's symptoms have markedly improved after treatment. 05:59 Patient medically screened. [facility] 03/28 01:03 Order name: Basic Metabolic Panel [facility] 03/28 01:03 Order name: CBC with Diff [facility] 03/28 01:03 Order name: LFT's [facility] 03/28 01:03 Order name: Magnesium [facility] 03/28 01:03 Order name: NT PRO-BNP [facility] 03/28 01:03 Order name: PT-INR; Complete Time: 03:32 [facility] 03/28 01:03 Order name: Troponin (emerg Dept Use Only); Complete Time: 03:32 [facility] 03/28 01:03 Order name: Basic Metabolic Panel; Complete Time: 03:32 [facility] 03/28 01:03 Order name: CBC with Automated Diff; Complete Time: 03:32 [facility] 03/28 01:03 Order name: Liver (Hepatic) Function; Complete Time: 03:32 [facility] 03/28 01:03 Order name: Magnesium; Complete Time: 03:32 [facility] 03/28 01:03 Order name: NT PRO-BNP; Complete Time: 03:32 [facility] 03/28 02:14 Order name: Glucose, Ancillary Testing; Complete Time: 02:30 EDMS 03/28 03:34 Order name: Ketone, Serum; Complete Time: 04:20 7 03/28 01:03 Order name: XRAY Chest (1 view) [facility] 03/28 01:03 Order name: EKG; Complete Time: 01:04 7 03/28 01:03 Order name: Cardiac monitoring; Complete Time: :58 7 03/28 01:03 Order name: EKG - Nurse/Tech; Complete Time: :58 7 03/28 01:03 Order name: IV Saline Lock; Complete Time: 02:31 7 03/28 01:03 Order name: Labs collected and sent; Complete Time: : 7 03/28 01:03 Order name: O2 Per Protocol; Complete Time: 01:13 7 03/28 01:03 Order name: O2 Sat Monitoring; Complete Time: 01:13 7 03/28 01:03 Order name: Accucheck Blood Glucose; Complete Time: 02:32 7 03/28 03:33 Order name: Urine Dipstick-Ancillary (obtain specimen); Complete Time: 05:12 7 03/28 05:12 Order name: Urine Dipstick-Ancillary; Complete Time: 05:28 MS 03/28 06:05 Order name: Glucose, Ancillary Testing [facility] Administered Medications: 03:51 Drug: Insulin Regular Human 10 units {Co-Signature: cr4 (Suellen Nicole RN).} Route: [facility] Sub-Q; Site: abdomen; 06:10 Follow up: Response: No adverse reaction; Blood sugar is lowered alfred Disposition: 03/28/21 05:59 Discharged to Home. Impression: Diabetes with Hyperglycemia. - Condition is Stable. - Discharge Instructions: Hyperglycemia, Wyzd-[id number], Type 2 Diabetes Mellitus, Diagnosis, Adult, Hhga-vp-Cuor. - Medication Reconciliation Form, Thank You Letter, Antibiotic Education, Prescription Opioid Use form. - Follow up: Private Physician; When: 1 - 2 days; Reason: Worsening of condition, Recheck today's complaints, Continuance of care, Re-evaluation by your physician. - Problem is new. - Symptoms have improved. Signatures: Dis[facility] Link Jackson FNP-C FNP-Cla1 Ministerio Craft, RN RN jb4 Hilario Francis MD MD mh7 Sharan Alonso, RN RN jm8 Suellen Nicole RN cr4 Corrections: (The following items were deleted from the chart) 06:13 05:59 03/28/2021 05:59 Discharged to Home. Impression: Diabetes with Hyperglycemia. jm8 Condition is Stable. Forms are Medication Reconciliation Form, Thank You Letter, Antibiotic Education, Prescription Opioid Use. Follow up: Private Physician; When: 1 - 2 days; Reason: Worsening of condition, Recheck today's complaints, Continuance of care, Re-evaluation by your physician. Problem is new. Symptoms have improved. mh7
--- NOTE | 2021-03-28 06:00 | ER ---
Nurse's Notes [facility] Name: Terese Alaniz Age: 61 yrs Sex: Female : 1960 Arrival Date: 03/27/2021 Time: 23:22 Bed 28 Private MD: Diagnosis: Diabetes with Hyperglycemia Presentation: 03/28 00:02 Chief complaint: Patient states: I was here earlier today for my leg and they gave me a jb4 medication and told me it would make my sugar go higher. I was not expecting it to go this high, my monitor at home says over 500. Coronavirus screen: Client denies travel out of the [place] in the last 14 days. At this time, the client does not indicate any symptoms associated with coronavirus-19. Ebola Screen: No symptoms or risks identified at this time. Initial Sepsis Screen: Does the patient meet any 2 criteria? No. Patient's initial sepsis screen is negative. Does the patient have a suspected source of infection? No. Patient's initial sepsis screen is negative. Risk Assessment: Do you want to hurt yourself or someone else? Patient reports no desire to harm self or others. Onset of symptoms was March 28, 2021. Transition of care: patient was not received from another setting of care. 00:02 Method Of Arrival: Ambulatory jb4 00:02 Acuity: VISHNU 3 jb4 Historical: - Allergies: 00:04 No Known Allergies; jb4 - PMHx: 00:04 CHF; Diabetes - IDDM; High Cholesterol; Hypertension; jb4 - Immunization history:: Adult Immunizations up to date. - Social history:: Smoking status: Patient denies any tobacco usage or history of. Patient/guardian denies using alcohol, street drugs. Screenin:41 Abuse screen: Denies threats or abuse. Denies injuries from another. Nutritional jm8 screening: No deficits noted. Tuberculosis screening: No symptoms or risk factors identified. Fall Risk None identified. Assessment: 01:39 General: Appears in no apparent distress. Behavior is calm, cooperative, appropriate jm8 for age. Pain: Denies pain. Neuro: No deficits noted. Level of Consciousness is awake, alert, obeys commands, Oriented to person, place, time. Cardiovascular: No deficits noted. Respiratory: No deficits noted. Airway is patent Trachea midline Respiratory effort is even, unlabored. GI: Reports high blood sugar this evening. : No deficits noted. EENT: No deficits noted. Derm: No deficits noted. Musculoskeletal: No deficits noted. Vital Signs: 00:02 BP 144 / 69; Pulse 73; Resp 20; Temp 98.0(O); Pulse Ox 93% on R/A; Weight 108.86 kg; jb4 Height 5 ft. 4 in. (162.56 cm) (R); Pain 0/10; 02:42 BP 140 / 74; Pulse 74; Resp 22; Pulse Ox 95% on R/A; jm8 05:45 BP 133 / 50; Pulse 72; Resp 18; Pulse Ox 95% on 2 lpm NC; jm8 00:02 Body Mass Index 41.20 (108.86 kg, 162.56 cm) jb4 ED Course: 03/27 23:22 Patient arrived in ED. es 03/28 00:04 Triage completed. jb4 00:04 Arm band placed on right wrist. jb4 00:44 Hilario Francis MD is Attending Physician. 7 01:30 Missed attempt(s): 20 gauge in right antecubital area. jm8 01:35 Missed attempt(s): 20 gauge in left antecubital area. jm8 01:41 Patient has correct armband on for positive identification. Bed in low position. Call [facility] light in reach. Side rails up X2. 01:41 No provider procedures requiring assistance completed. jm8 01:43 Missed attempt(s): 22 gauge in left forearm. sf 01:48 XRAY Chest (1 view) In Process Unspecified. EDMS 02:15 Initial lab(s) drawn, by me, sent to lab. Inserted saline lock: 18 gauge in right bb antecubital area, using aseptic technique. Blood collected. 06:08 IV discontinued, intact, bleeding controlled, No redness/swelling at site. [facility] Administered Medications: 03:51 Drug: Insulin Regular Human 10 units {Co-Signature: cr4 (Suellen Nicole RN).} Route: [facility] Sub-Q; Site: abdomen; 06:10 Follow up: Response: No adverse reaction; Blood sugar is lowered [facility] Outcome: 05:59 Discharge ordered by . [facility] 06:10 Discharged to home [facility] 06:10 Condition: good 06:10 Discharge instructions given to 06:10 Discharge instructions given to patient, Instructed on discharge instructions, follow up and referral plans. medication usage, Demonstrated understanding of instructions, follow-up care. 06:13 Patient left the ED. alfred Signatures: Dispatcher [employer] Caren Choudhary Brenda RN RN Ministerio Mcpherson RN RN jb4 Hilario Francis MD MD mh7 Ronny Otoole RN RN sf Malcaba, Joseph, RN RN jm8 Suellen Nicole RN cr4 Corrections: (The following items were deleted from the chart) 02:22 02:14 Inserted saline lock: 18 gauge in right antecubital area, using aseptic bb technique. alfred 06:09 05:34 heart tones: HR 148 alfred simon
[2021-03-28 06:20] VITALS: TEMP 98
[2021-03-28 06:21] VITALS: O2SAT 95
[2021-03-28 06:22] VITALS: BP 133/50
--- NOTE | 2021-03-28 08:44 | RAD REPORT ---
EXAM DESCRIPTION: RAD - Chest Single View - 03/28/2021 1:48 am CLINICAL HISTORY: CONGESTION Chest pain. COMPARISON: Chest Single View dated 06/04/2019; Chest Pa And Lat (2 Views) dated 10/03/2017; CHEST SING LE VIEW dated 12/29/2015; CHEST SINGLE VIEW dated 09/13/2009; Lumbar Spine Wo Con dated 03/27/2021 FINDINGS: Portable technique limits examination quality. The lungs are grossly clear. The heart is normal in size. No displaced fractures. IMPRESSION: No acute intrathoracic process suspected.
--- NOTE | 2021-03-29 07:25 | EKG ---
Test Date: 2021-03-28 Test Time: 01:52:12 Swing Saw Operator: JEWELL MEASUREMENT RESULTS: Intervals: Rate: 72 OK: 188 QRSD: 126 QT: 458 QTc: 501 [place]: P: 35 OK: 188 QRS: -55 T: 48 INTERPRETIVE STATEMENTS: * Pediatric ECG analysis * Sinus bradycardia with 1st degree AV block with premature atrial complexes with aberrant conduction Left axis deviation Left bundle branch block Compared to ECG 06/04/2019 18:07:22 Atrial premature complex(es) now present First degree AV block now present Aberrant conduction of supraventricular beat(s) now present Left bundle-branch block now present Sinus rhythm no longer present Ventricular premature complex(es) no longer present Myocardial infarct finding no longer present Electronically Signed On 03-29-21 07:22:15 CDT by Demetrius Reyes
== END 2021-03-28 06:13 | disposition home or self-care (01) ==
LOC: ER 23:19
DX: E11.65 Type 2 diabetes mellitus with hyperglycemia (principal); Z79.4 Long term (current) use of insulin; I11.0 Hypertensive heart disease with heart failure; I50.9 Heart failure, unspecified; E78.00 Pure hypercholesterolemia, unspecified
CPT/HCPCS: 36415; 71045; 80048; 80076; 81003; 82010; 82947; 83735; 83880; 84484; 85025; 85610; 93005; 96372; 99284

== ENCOUNTER 2023-07-02 10:51 | Emergency (ER) | payer OTHER ==
--- OUTSIDE RECORDS SUMMARY | 2023-07-02 11:05 | XMS REPORT | Continuity of Care Document ---
:1960 Author Organization [facility] t Address [address] [facility] [address] [place] [address] Care Team Providers Name Role Phone SINCERE WADE Primary Care Physician Unavailable VENITA MARES Attending Clinician Unavailable SINCERE WADE Attending Clinician Unavailable Moustapha Espinosa MD Attending Clinician Venita Dejesus MD Attending Clinician VENITA DEJESUS Attending Clinician Unavailable MAURA SCHMDI Attending Clinician Unavailable JEANE GODOY Attending Clinician Unavailable STEPHANIE DIXON Attending Clinician Unavailable KAT RANGEL Attending Clinician Unavailable Sincere Wade MD Attending Clinician Eleanor Miner RN Attending Clinician Unavailable Steffanie Puente MD Attending Clinician Aretha GILLESPIE, Shawn Gonzalez Attending Clinician [phone] Julia Cochran MD Attending Clinician [phone] JULIA COCHRAN Attending Clinician Unavailable Cindy Davis Attending Clinician Unavailable Iveth Aguayo Attending Clinician Unavailable Pranav Bradford Attending Clinician Unavailable PRITESH ROCKWELL Attending Clinician Unavailable Nurse, Adc Pob Immunization Attending Clinician Unavailable Pritesh Rockwell DO Attending Clinician Citlaly GILLESPIE, Aneta Burgos Attending Clinician Екатерина GILLESPIE, Stephanie Younger Attending Clinician Mike GILLESPIE, Keke Prabhakar Attending Clinician Jana Valdovinos MD Attending Clinician GUSTAVO ESPINOSA Attending Clinician Unavailable Elier GILLESPIE, Gavin Kay Attending Clinician PENG TAVARES Attending Clinician Unavailable Pcp, Patient Does Not Have A Attending Clinician [phone] Martita Hutson Attending Clinician Lab, Adc Fam Pob I Attending Clinician Unavailable Pob, Adc Lab Main Attending Clinician Unavailable Doctor Unassigned, [place] Attending Clinician Unavailable BRIAN HART Attending Clinician Unavailable Venita Mares MD Attending Clinician Only, Adc Test Attending Clinician Unavailable MOUSTAPHA ESPINOSA Attending Clinician Unavailable ELSA AVITIA Attending Clinician Unavailable VENITA MARES Admitting Clinician Unavailable VENITA DEJESUS Admitting Clinician Unavailable MAURA SCHMID Admitting Clinician Unavailable EVON HENSLEY Admitting Clinician Unavailable JULIA COCHRAN Admitting Clinician Unavailable JANA VALDOVINOS Admitting Clinician Unavailable ANDREW CHRISTIANSON Admitting Clinician Unavailable Venita Mares MD Admitting Clinician Payers Payer Name Policy Type Policy Number Effective Date Expiration Date S nikos MEDICARE PART A [id number] 2012 \\T\\ B 00:00:00 MEDICARE A B [id number] 2012 00:00:00 MEDICAID OF [place] [id number] 2023 00:00:00 CDC REVIEW [id number] 2020 00:00:00 Problems Condition Condition Condition Status Onset Resolution Last Treating Co mments Source Name Details Category Date Date Treatment Clinician Date History of History of Disease Active M ethodi cardiac cardiac 6-[address] [facility] radiofrequ radiofrequ 00:00: Ho spita ency ency 00 l ablation ablation (RFA) (RFA) PVC PVC Disease Active [facility] (premature (premature 6-[address] ventricula ventricula 00:00: Ho spita r r 00 l contractio contractio n) n) Hyperglyce Hyperglyce Disease Recurre 2021-[address] [facility] [address] alejandro due to alejandro due to nce 2-16 [facility] diabetes diabetes 00:00: Medica l mellitus mellitus 00 Center Hypotensio Hypotensio Disease Active 2021-[address] n n 2-16 [facility] Center Hyponatrem Hyponatrem Disease Active 2021-[address] ia ia 2-16 [facility] 00:[facility]: Medical 00 [place] Essential Essential Disease Active 2021-11 [facility] hypertensi hypertensi 0-14 st on on 00:00: Hospita 00 l Chronic Chronic Disease Active 2021-11 [facility] systolic systolic 0-14 st heart heart 00:00: Hospita failure failure 00 l 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 [facility] hyperlipid hyperlipid 0-14 st emia emia 00:00: Hospita 00 l Acute Acute Disease Recurre [facility] hypoxemic hypoxemic nce 5-15 [facility] respirator respirator 00:00: Me dical y failure y failure 00 Cent er ROBERT (acute ROBERT (acute Disease Recurre [facility] kidney kidney nce 5-15 [facility] injury) injury) 00:00: Medical 00 Center Stage 3 Stage [address] [facility] chronic chronic nce 5-15 [facility] kidney kidney 00:00: Medical disease disease 00 Center Chronic Chronic Disease Recurre [facility] combined combined nce 5-15 [facility] systolic systolic 00:00: Medica l (congestiv (congestiv 00 Ce nter e) and e) and diastolic diastolic (congestiv (congestiv e) heart e) heart failure failure Bilateral Bilateral Disease Active [facility] leg edema leg edema 5-14 [facility] 00:00: Medical 00 Center Lumbar Lumbar Disease Active [facility] stenosis stenosis 5-05 st with with 00:00: Hospita neurogenic neurogenic 00 l claudicati claudicati on on BMI BMI Disease Active [facility] 45.0-49.9, 45.0-49.9, 5-05 st adult adult 00:00: Hospita 00 l Acute deep Acute deep Disease Recurre [facility] vein vein nce 8-17 [facility] thrombosis thrombosis 00:00: Me dical (DVT) of (DVT) of 00 Center left lower left lower extremity, extremity, unspecifie unspecifie d vein d vein Chronic Chronic Disease Active [facility] systolic systolic 2-12 [facility] congestive congestive 00:00: Me dical heart heart 00 Center failure failure Ingrowing Ingrowing Disease Active [facility] nail with nail with 2-12 [facility] infection infection 00:00: Medi vidhya 00 Center Pancreatit Pancreatit Disease Active [facility] is is 1-08 [facility] 00:[facility]: Medical 00 Center CHF CHF Disease Active [facility] (congestiv (congestiv 8-07 [facility] e heart e heart 00:00: Medical failure) failure) 00 Center Chest pain Chest pain Disease Active [facility] 8[facility]07 [facility] 00[facility] Medical 00 Center HTN HTN Disease Active [facility] (hypertens (hypertens 8-07 [facility] ion) ion) 00:00: Medical 00 Center Type 2 Type 2 [address] [facility] diabetes diabetes nce 8-07 [facility] mellitus mellitus 00:00: Medica l with with 00 Center diabetic diabetic nephropath nephropath y y No known No known Disease Unive rs active active ity of problems problems [facility] Allergies, Adverse Reactions, Alerts Allergy Allergy Status Severity Reaction(s) Onset Inactive Treating Comm ents Source Name Type Date Date Clinician NO KNOWN Drug Active Univers ALLERGIE Class ity of S [facility] NO KNOWN Allergy Active [facility] ALLERGIE [facility] Family History Family Member Diagnosis Comments Start Date Stop Date Source Natural father Diabetes [facility] Natural father Heart attack [facility] Natural father Heart disease [facility] Natural father Diabetes [facility] Natural father Heart disease [facility] mother [facility] Natural brother Diabetes [facility] Natural sister Diabetes [facility] Social History Social Habit Start Date Stop Date Quantity Comments Source [facility] Exposure to Not sure University SARS-CoV-2 (event) [facility] Alcohol intake 2023-05-27 2023-05-27 Lifetime [facility] 00:[facility]:00 00:00:00 non-drinker Hospital (finding) History of Social 2023-05-27 2023-05-[address] function 00:00:00 00:00:00 Hospital Tobacco use and 2023-03-01 2023-03-[address] [facility] [facility] exposure 00:00:00 00:00:00 tobacco non-user [facility] Sex Assigned At [birth year] [facility] Smoking Status Start Date Stop Date Source Never smoked tobacco [facility] Unknown if ever smoked [facility] Medications Ordered Filled Start Stop Current Ordering Indication Dosage Frequency Signature Comments Components Source Medication Medication Date Date Medication? Clinician (SIG) Name Name calcium 2022- No 1{tbl} Q7D Take 1 Metho di carbonate-v 05-[address] itamin D3 11:38: 00:00 mouth once H ospita 500 mg-200 31 :00 a week. l unit per tablet aspirin Yes 81mg Take 1 [facility] (ECOTRIN) - tablet (81 st 81 MG 10:45: mg total) Hospita enteric 29 by mouth. l coated tablet metoprolol Yes TAKE 1 [facility]o di tartrate 75 6-[address] mg tablet 00:00: MOUTH IN Hosp evelin 00 THE l MORNING AND 1 BEFORE BEDTIME sildenafil, Yes 20mg Q8H Take 1 Meth mg for 6-19 tablet (20 st pulmonary 00:00: mg total) Hos fabiola hypertensio 00 by mouth l n, every 8 (REVATIO) (eight) 20 mg hours. tablet insulin Yes type 2 40U Q.5D Inject [address] glargine 4-03 diabetes Units [facility] (LANTUS, 11:01: mellitus subcutailo Medical [facility]) 29 usly in Center 100 unit/mL the injection morning and 40 Units before bedtime. Use as directed. cyclobenzap 2022- No 10mg Take [address] [facility] rine 4-03 04-03 by mouth 3 [facility] (FLEXERIL) 11:01: 00:00 (three) Med ical 10 MG 16 :00 times Center tablet daily as needed for Muscle spasms. acetaminoph 0 Yes 1{tbl} Take [address] en-codeine 4-03 tablet by Donaldo s (TYLENOL 10:57: mouth Medical #3) 300-30 54 every 4 Center mg per (four) tablet hours as needed for Pain. dapaglifloz 0 Yes 10mg QD Take [address] [facility] [facility] in 4-03 tablet (10 [facility] (FARXIGA) 10:57: mg total) Med ical 10 mg 54 by mouth Center tablet in the morning. metOLazone 0 Yes peripheral 2.5mg Take [address] (ZAROXOLYN) 03 edema due tablet L ukes 2.5 MG 10:57: to chronic (2.5 mg Me dical tablet 54 heart total) by Center failure mouth as needed Twice a week as needed, Wednesday and . pregabalin 0 Yes 75mg Take 1 Metho di (LYRICA) 75 4-[address] MG capsule 00:00: (75 mg Hospi ta 00 total) by l mouth. pregabalin 2022-0 2022- No 75mg Q.5D Take [address] (Lyrica) 75 4- 07-02 capsule [facility] MG capsule 00:00: 23:59 (75 mg Medi vidhya 00 :00 total) by Center mouth in the morning and 1 capsule (75 mg total) before bedtime. Do all this for 90 days. Max Daily Amount: 150 mg. semaglutide 0 2022- No 2mg Inject [address] (Ozempic) 2 4- 07-02 mg [facility] mg/dose (8 00:00: 23:59 subcutaneo Medical mg/3 mL) 00 :00 usly every Cente r PnIj 7 days for 90 days. Constulose 0 Yes TAKE [address] 10 gram/15 3-27 BY MOUTH [facility] mL solution 00:00: THREE Medic al 00 TIMES Center DAILY NEEDED zolpidem 2022-0 Yes 10mg Take [address] [facility] [address] (AMBIEN) 10 2-25 tablet (10 [facility] mg tablet 00:00: mg total) Med ical 00 by mouth Center every night as needed for Insomnia. Max Daily Amount: 10 mg zolpidem 2022- No TAKE [address] [facility] (AMBIEN) 10 2-25 04-03 TABLET BY [facility] mg tablet 00:00: 00:00 MOUTH Medica l 00 :00 NIGHTLY Center NEEDED FOR INSOMNIA carvediloL Yes TAKE 1 [facility] (COREG) 25 2-07 TABLET BY [facility] MG tablet 00:00: MOUTH Medical 00 TWICE Center DAILY WITH BREAKFAST AND WITH DINNER gabapentin Yes TAKE 1 [facility] (NEURONTIN) 1-23 CAPSULE BY [facility] 300 MG 00:00: MOUTH Medical capsule 00 THREE Center TIMES DAILY Constulose 2022- No TAKE [address] 10 gram/15 12-21 03-27 BY MOUTH [facility] mL solution 00:00: 14:47 THREE Medi vidhya 00 :57 TIMES Center DAILY NEEDED torsemide 2021-11 Yes 20mg QD Take [address] [facility] (DEMADEX) 2-19 tablet (20 [facility] 20 MG 00:00: mg total) Medical tablet 00 by mouth Center daily. insulin 2021-11- No 40U Q.5D Inject [address] glargine 12-21 04-03 Units [facility] (Basaglar 00:00: 00:00 subcutaneo M edical KwikPen 00 :00 usly 2 Center U-100 (two) Insulin) times 100 unit/mL daily. (3 mL) InPn lactulose 2021-11- No 10g Take [address] [facility] (Constulose 12-21-23 mLs (10 g [facility] ) 10 00:00: 00:00 total) by Medical gram/15 mL 00 :00 mouth 3 Center solution (three) times daily as needed. torsemide 2021-11 Yes 40mg Q.5D Take 2 Method i (DEMADEX) 1-[address] 20 MG 00:00: (40 mg Hospita tablet 00 total) by l mouth 2 (two) times a day. torsemide 2021-11- No 40mg Q.5D Take 2 Metho di (DEMADEX) 1-22 11-[address] 20 MG 00:00: 00:00 (40 mg Hospita tablet 00 :00 total) by l mouth 2 (two) times a day. metoclopram 2021-11 Yes 10mg Take [address] mallorie HCl -21 tablet (10 [facility] (REGLAN) 10 00:00: mg total) M edical MG tablet 00 by mouth 4 Cent er (four) times daily as needed for Nausea. insulin 2021-11 Yes 15U Inject 15 [facility] aspart -21 Units [facility] U-100 00:00: subcutaneo Medica l (NovoLOG) 00 usly 3 Center 100 unit/mL (three) injection times daily before meals. torsemide 2021-11- No 40mg QD Take 2 [facility] (DEMADEX) -18 11-19 tablets [facility] 20 MG 00:00: 00:00 (40 mg Medical tablet 00 :00 total) by Center mouth daily. sacubitriL- 2021-11- No 1{tbl} Q.5D Take [address] valsartan 12-19- tablet by [facility] (Entresto) 00:00: 00:00 mouth 2 Med ical 97-103 mg 00 :00 (two) Center tablet times daily. insulin 2021-11- No 40U Q.5D Inject [address] glargine 12-19-22 Units [facility] (LANTUS, 00:00: 00:00 subcutaneo Me dical SEMGLEE) 00 :00 usly 2 Center 100 unit/mL (two) injection times daily for 30 days. zolpidem 2021-11- No TAKE [address] [facility] (AMBIEN) 10 12-08 02-24 TABLET BY [facility] mg tablet 00:00: 00:00 MOUTH Medica l 00 :00 NIGHTLY Center NEEDED FOR INSOMNIA metOLazone 2021-11- No 2.5mg QD Take 1 Met hodi (ZAROXOLYN) 12-07- tablet st 2.5 MG 00:00: 05:59 (2.5 mg Hospita tablet 00 :00 total) by l mouth daily. Take 1/2 hour prior to morning torsemide. metOLazone 2021-11- No pulmonary 2.5mg Q.5W Take 2.[address] (ZAROXOLYN) 12-07 edema due mg by L ukes 2.5 MG 00:00: 00:00 to chronic mouth Med ical tablet 00 :00 heart twice a Center failure week Mondays and . torsemide 2021-11- No 40mg Q.5D Take 2 Metho di (DEMADEX) 0-14 11-[address] 20 MG 00:00: 00:00 (40 mg Hospita tablet 00 :00 total) by l mouth 2 (two) times a day. Farxiga 10 Yes 10mg QD Take 1 Metho di mg tablet 08-17 tablet (10 st 00:00: mg total) Hospita 00 by mouth l daily. gabapentin 2022- No TAKE [address] [facility] (NEURONTIN) 08-17 CAPSULE BY L ukes 300 MG 00:00: 00:00 MOUTH Medical capsule 00 :00 THREE Center TIMES DAILY zolpidem 2021- No TAKE [address] [facility] [facility] (AMBIEN) 10 08-17 11-10 TABLET BY [facility] mg tablet 00:00: 00:00 MOUTH Medica l 00 :00 NIGHTLY Center NEEDED FOR INSOMNIA torsemide 2021- No 40mg Q.5D Take 2 Metho di (DEMADEX) 08-16 10-[address] 20 MG 00:00: 00:00 (40 mg Hospita tablet 00 :00 total) by l mouth 2 (two) times a day. lactulose 2022- No once as Meth mg (CHRONULAC) 08-[address] 10 gram/15 00:00: 00:00 Hospit a mL solution 00 :00 l Constulose 2021- No TAKE 15ML [facility] 10 gram/15 08-04 BY MOUTH [facility] mL solution 00:00: 00:00 THREE Medi vidhya 00 :00 TIMES A Center DAY NEEDED sacubitriL- 2022- No 1{tbl} Q.5D Take 1 M ethodi valsartan 07-[address] (Entresto) 00:00: 00:00 mouth 2 Hos fabiola 97-103 mg 00 :00 (two) l tablet per times a tablet day. Entresto 2021- No Take [address] [facility] [facility] 97-103 mg 8- 12-16 tablet by [facility] tablet 00:00: 00:00 mouth Medical 00 :00 twice Center daily sacubitriL- 2021- No 1{tbl} Q.5D Take [address] valsartan 07-20 11-21 tablet by [facility] (Entresto) 00:00: 00:00 mouth 2 Med ical 97-103 mg 00 :00 (two) Center tablet times daily. sacubitriL- 2021- No 1{tbl} Q.5D Take [address] valsartan 8-21 tablet by Luke [facility] (Entresto) 00:00: 00:00 mouth 2 Med ical 97-103 mg 00 :00 (two) Center tablet times daily. zolpidem 2021- No TAKE [address] [facility] (AMBIEN) 10 -18 08-19 TABLET BY [facility] mg tablet 00:00: 00:00 MOUTH Medica l 00 :00 NIGHTLY Center NEEDED FOR INSOMNIA Constulose 2021- No TAKE [address] 10 gram/15 -18 08-06 (10 G [facility] mL solution 00:00: 00:00 TOTAL) BY Medical 00 :00 MOUTH Center THREE TIMES DAILY NEEDED FOR UP TO 10 DAYS torsemide 2021- No 40mg QD Take 2 [facility] (DEMADEX) 05-20-21 tablets [facility] 20 MG 00:00: 00:00 (40 mg Medical tablet 00 :00 total) by Center mouth daily. gabapentin 2021- No TAKE [address] [facility] (NEURONTIN) -20 08- CAPSULE BY L ukes 300 MG 00:00: 00:00 MOUTH Medical capsule 00 :00 THREE Center TIMES DAILY atorvastati 2021- Yes 20mg QD Take [address] [facility] [facility] n (LIPITOR) 5-27 tablet (20 [facility] 20 MG 00:00: mg total) Medical tablet 00 by mouth Center every evening. carvediloL 2022- No 25mg Take [address] [facility] (COREG) 25 5-27 02-07 tablet (25 [facility] MG tablet 00:00: 00:00 mg total) Me dical 00 :00 by mouth 2 Center (two) times daily with breakfast and dinner. isosorbide 2021- No 60mg QD Take [address] mononitrate 04-24 12-19 tablet (60 L [facility] (IMDUR) 60 00:00: 00:00 mg total) M edical MG 24 hr 00 :00 by mouth Center tablet daily. torsemide 2021- No 40mg QD Take 2 [facility] (DEMADEX) 04-24 06-22 tablets [facility] 20 MG 00:00: 00:00 (40 mg Medical tablet 00 :00 total) by Center mouth daily. Entresto 2021- No Take [address] [facility] 97-103 mg 04-20 08-22 tablet by [facility] Tab 00:00: 00:00 mouth Medical 00 :00 twice Center daily lactulose 2021- No 10g Take [address] [facility] (CHRONULAC) -20 07-20 mLs (10 g [facility] 10 gram/15 00:00: 00:00 total) by M edical mL solution 00 :00 mouth 3 Cente r (three) times daily as needed for up to 10 days. HYDROcodone 2021- No 1{tbl} Take [address] -acetaminop 04-09- tablet by Ronen sotelo hen ([facility]) 00:00: 23:59 mouth Medi vidhya 7.5-325 mg 00 :00 every 6 Center per tablet (six) hours as needed for Pain for up to 10 days. Max Daily Amount: 4 tablets lactulose 2021- No 10g [id number] Take [address] [facility] (CEPHULAC) 5-12 05-20 [id number] packet (10 [facility] 10 gram 00:00: 00:00 3D g total) Medic al packet 00 :00 by mouth 3 Center (three) times daily for 10 days. zolpidem 2021- No TAKE [address] [facility] [address] (AMBIEN) 10 5-11 07-20 TABLET BY [facility] mg tablet 00:00: 00:00 MOUTH Medica l 00 :00 NIGHTLY Center NEEDED FOR INSOMNIA zolpidem 2021- No TAKE [address] [facility] [address] (AMBIEN) 10 3-24 05-11 TABLET BY [facility] mg tablet 00:00: 00:00 MOUTH Medica l 00 :00 NIGHTLY Center NEEDED FOR INSOMNIA MAX DAILY AMOUNT 10 MG gabapentin 2021- No TAKE [address] [facility] (NEURONTIN) 3- 06-22 CAPSULE BY L ukes 300 MG 00:00: 00:00 MOUTH Medical capsule 00 :00 THREE Center TIMES DAILY zolpidem Yes TAKE [address] [facility] (AMBIEN) 10 -27 TABLET BY Vipin es mg tablet 00:00: MOUTH ONCE Me dical 00 NIGHTLY Center NEEDED FOR INSOMNIA. MAX DAILY AMOUNT: 10 MG Entresto Yes Take [address] [facility] 97-103 mg 1-22 tablet by [facility] Tab 00:00: mouth Medical 00 twice Center daily Entresto 2021- No Take [address] [facility] 97-103 mg -19 04-23 tablet by [facility] Tab 00:00: 00:00 mouth Medical 00 :00 twice Center daily gabapentin 2020-11 Yes TAKE 1 [facility] (NEURONTIN) 1-17 CAPSULE BY [facility]es 300 MG 00:00: MOUTH Medical capsule 00 THREE Center TIMES DAILY carvediloL 2020-11 Yes TAKE 1 [facility] (COREG) 25 1-02 TABLET BY [facility] MG tablet 00:00: MOUTH Medical 00 TWICE Center DAILY WITH BREAKFAST AND WITH SUPPER carvediloL 2020-11- No TAKE [address] [facility] [address] (COREG) 25 1- 05-27 TABLET BY Vipin es MG tablet 00:00: 00:00 MOUTH Medica l 00 :00 TWICE Center DAILY WITH BREAKFAST AND WITH SUPPER carvediloL 2020-11 Yes 25mg Take 1 [facility] (COREG) 25 1- tablet (25 Vipin es MG tablet 00:00: mg total) Med ical 00 by mouth 2 Center (two) times daily with breakfast and dinner. carvediloL 2020-11- No 25mg Take [address] [facility] (COREG) 25 1- 05-27 tablet (25 [facility] MG tablet 00:00: 00:00 mg total) Me dical 00 :00 by mouth 2 Center (two) times daily with breakfast and dinner. zolpidem 2021- No 10mg Take [address] [facility] (AMBIEN) 10 8-23 01-27 tablet (10 L [facility] mg tablet 00:00: 00:00 mg total) Me dical 00 :00 by mouth Center every night as needed for Insomnia. Max Daily Amount: 10 mg gabapentin 2020- No TAKE [address] [facility] (NEURONTIN) 07-15 CAPSULE BY L ukes 300 MG 00:00: 19:28 MOUTH Medical capsule 00 :14 THREE Center TIMES DAILY Entresto 2021- No Take [address] [facility] 97-103 mg 06-23 tablet by Luke s Tab 00:00: 00:00 mouth Medical 00 :00 twice Center daily carvediloL 2020- No TAKE [address] [facility] (COREG) 06-23 TABLET BY Vipin es MG tablet 00:00: 00:00 MOUTH Medica l 00 :00 TWICE Center DAILY WITH BREAKFAST AND WITH SUPPER acetaminoph 2020- No 2{tbl} 2 tablet, Univers en-codeine 7-04 07-04 Oral, ity of (TYLENOL 08:15: 07:35 ONCE, 1 [place] #3) 300-30 00 :00 dose, Sun Medi vidhya mg tablet 2 06/01/21 at [facility] tablet 0315, KEVIN acetaminoph Yes 4647 1{tbl} Take 1 Un anni en-codeine 7-04 tablet by ity of (TYLENOL-CO 00:00: mouth [place] DEINE #3) 00 every 6 Medical 300-30 mg (six) Branch tablet hours as needed for Pain (scale 7-10). Indication s: acute pain acetaminoph 0 Yes 4647 1{tbl} Take 1 Un anni en-codeine 7-04 tablet by ity of (TYLENOL-CO 00:00: mouth [place] DEINE #3) 00 every 6 Medical 300-30 mg (six) Branch tablet hours as needed for Pain (scale 7-10). Indication s: acute pain acetaminoph Yes 4647 1{tbl} Take 1 Un anni en-codeine 7-04 tablet by ity of (TYLENOL-CO 00:00: mouth [place] DEINE #3) 00 every 6 Medical 300-30 mg (six) Branch tablet hours as needed for Pain (scale 7-10). Indication s: acute pain insulin Yes 30U Q.5D Inject 30 [facility] glargine 6-01 [facility] (LANTUS) 00:00: subcutaneo Med ical 100 unit/mL 00 usly 2 Center injection (two) times daily. insulin 2021- No 30U Q.5D Inject [address] glargine 04-29 11-21 [facility] (LANTUS) 00:00: 00:00 subcutaneo Me dical 100 unit/mL 00 :00 usly 2 Center injection (two) times daily. acetaminoph Yes 1{tbl} Take [address] en-codeine 5-18 tablet by Donaldo burgos (TYLENOL 17:48: mouth Medical #3) 300-30 07 every 4 Center mg per (four) tablet hours as needed for Pain. cyclobenzap Yes 10mg Take [address] [facility] rine 5-18 by mouth 3 [facility] (FLEXERIL) 17:48: (three) Medi vidhya 10 MG 07 times Center tablet daily as needed for Muscle spasms. ibuprofen 2020- No 600mg Take [address] (ADVIL,MOTR 5-18 05-18 mg by [facility] IN) 600 MG 12:37: 00:00 mouth Medic al tablet 53 :00 every 6 Center (six) hours as needed for Pain. metOLazone 2020- No 5mg QD Take [address] (ZAROXOLYN) 5-18 05-18 by mouth Vipin es 5 MG tablet 12:34: 00:00 daily. Med ical 18 :00 Center isosorbide Yes 60mg QD Take 1 [facility] mononitrate 5-18 tablet (60 [facility] (IMDUR) 60 00:00: mg total) Me dical MG 24 hr 00 by mouth Center tablet daily. torsemide Yes 40mg QD Take [address] (DEMADEX) 5-18 tablets [facility] 20 MG 00:00: (40 mg Medical tablet 00 total) by Center mouth daily. isosorbide 0 2021- No 60mg QD Take [address] mononitrate 5-18 05-27 tablet (60 L ukes (IMDUR) 60 00:00: 00:00 mg total) M edical MG 24 hr 00 :00 by mouth Center tablet daily. torsemide 2021- No 40mg QD Take 2 [facility] (DEMADEX) 04-15 05-27 tablets [facility] 20 MG 00:00: 00:00 (40 mg Medical tablet 00 :00 total) by Center mouth daily. insulin 2020- No 30U Q.5D Inject [address] glargine 04-15 06- Units [facility] (LANTUS) 00:00: 00:00 subcutaneo Me dical 100 unit/mL 00 :00 usly 2 Center injection (two) times daily. gabapentin 2020- No TAKE [address] [facility] (NEURONTIN) 04-06-17 CAPSULE BY L ukes 300 MG 00:00: 00:00 MOUTH Medical capsule 00 :00 THREE Center TIMES DAILY insulin Yes 40U Q.5D Inject 0.4 Meth mg GLARGINE 4-30 mL (40 st (LANTUS) 00:00: Units Hospita 100 unit/mL 00 total) l injection under the (vial) skin 2 (two) times a day. insulin Yes 70U Inject 70 Metho di GLARGINE 4-[address] (LANTUS) 00:00: under the Hosp evelin 100 unit/mL 00 skin. l injection (vial) insulin Yes 70U Inject 70 Metho di GLARGINE 4-[address] (LANTUS) 00:00: under the Hosp evelin 100 unit/mL 00 skin. l injection (vial) SITagliptin 2020- No 100mg Take 100 [facility]i (JANUVIA) 4-30 07-[address] 100 MG 00:00: 04:59 mouth. Hospita tablet 00 :00 l torsemide 2020- No 20mg Take 20 mg M ethodi (DEMADEX) 4-30 07-[address] 20 MG 00:00: 04:59 Hospita tablet 00 :00 l SITagliptin 2020- No 100mg Take 100 [facility] (JANUVIA) 4-30 07-[address] 100 MG 00:00: 04:59 mouth. Hospita tablet 00 :00 l torsemide 2020- No 20mg Take 20 mg M ethodi (DEMADEX) 03-28-[address] 20 MG 00:00: 04:59 Hospita tablet 00 :00 l insulin 2020- No 70U Q.5D Inject [address] glargine 30 05-18 Units [facility] (LANTUS) 00:00: 00:00 subcutaneo Me dical 100 unit/mL 00 :00 usly 2 Center injection (two) times daily. SITagliptin 2020- No 100mg QD Take [address] (JANUVIA) 03-28-18 tablet [facility] 100 MG 00:00: 00:00 (100 mg Medical tablet 00 :00 total) by Center mouth daily for 90 days. torsemide 2020- No 20mg QD Take 1 [facility] (DEMADEX) 03-28-18 tablet (20 Vipin es 20 MG 00:00: 00:00 mg total) Medica l tablet 00 :00 by mouth Center daily for 90 days. traMADoL 2020- No 50mg Take 50 mg Me thodi (ULTRAM) 50 4- 05-[address] mg tablet 00:00: 04:59 Hospita 00 :00 l traMADoL 2020- No 50mg Take 50 mg Me thodi (ULTRAM) 50 4-30 05-[address] mg tablet 00:00: 04:59 Hospita 00 :00 l traMADoL 2020- No 50mg Take [address] [facility] [facility] (ULTRAM) 50 4-30 05-10 tablet (50 L ukes mg tablet 00:00: 23:59 mg total) Me dical 00 :00 by mouth Center every 6 (six) hours as needed for Pain for up to 10 days. Max Daily Amount: 200 mg insulin 2020- No 60U Q.5D Inject [address] [facility] glargine 429 04-29 [facility] (LANTUS) 15:31: 00:00 subcutaneo Me dical 100 unit/mL 39 :00 usly 2 Center injection (two) times daily. insulin 2020- No 60U Q.5D Inject [address] [facility] glargine 4-29 04-30 [facility] (LANTUS) 00:00: 00:00 subcutaneo Me dical 100 unit/mL 00 :00 usly 2 Center injection (two) times daily. zolpidem 2020- No TAKE [address] [facility] (AMBIEN) 10 4-15 05-14 TABLET BY Ronen kes mg tablet 00:00: 00:00 MOUTH AT Med ical 00 :00 NIGHT Center NEEDED FOR INSOMNIA , MAX 10 MG PER DAY carvediloL 2020- No TAKE [address] [facility] (COREG) 25 4-09 07-26 TABLET BY Vipin es MG tablet 00:00: 00:00 MOUTH Medica l 00 :00 TWICE Center DAILY WITH BREAKFAST AND DINNER Entresto 2020- No Take [address] [facility] 97-103 mg 3-05 05-18 tablet by Luke s Tab 00:00: 00:00 mouth Medical 00 :00 twice Center daily Eliquis 5 2020- No TAKE 2 [facility] MG tablet 2-03 04-30 TABLET BY Luke s 00:00: 00:00 MOUTH Medical 00 :00 TWICE Center DAILY FOR 6 DAYS, THEN TAKE 1 TABLET TWICE A DAY SITagliptin 2020- No 100mg QD Take [address] (Januvia) 1-20 04-20 tablet [facility] 100 MG 00:00: 23:59 (100 mg Medical tablet 00 :00 total) by Center mouth daily for 90 days. zolpidem 2020- No 10mg Take [address] [facility] (AMBIEN) 10 1-20 04-15 tablet (10 L ukes mg tablet 00:00: 00:00 mg total) Me dical 00 :00 by mouth Center every night as needed for Insomnia. Max Daily Amount: 10 mg glipiZIDE 2020- No Take 1 [facility] (GLUCOTROL 1-13 05-18 tablet by Vipin es XL) 10 MG 00:00: 00:00 mouth once M edical 24 hr 00 :00 daily Center tablet Ventolin 2019-11 Yes INHALE 1 [facility] HFA 90 2-20 TO 2 [facility]S [facility] mcg/actuati 00:00: BY MOUTH Me dical on inhaler 00 EVERY [address] 6 HOURS NEEDED FOR DIFFICULY BREATHING albuterol 2019-11 Yes INHALE 1 Meth mg (PROAIR 2-[address] HFA) 90 00:00: BY MOUTH Hospit a mcg/actuati 00 EVERY 4 TO l on inhaler 6 HOURS NEEDED FOR DIFFICULY BREATHING albuterol 2019-11 Yes INHALE 1 Meth mg (Ventolin 2-[address] HFA) 90 00:00: BY MOUTH Hospit a mcg/actuati 00 EVERY 4 TO l on inhaler 6 HOURS NEEDED FOR DIFFICULY BREATHING albuterol 2019-11 Yes INHALE 1 Meth mg (Ventolin 2-[address] HFA) 90 00:00: BY MOUTH Hospit a mcg/actuati 00 EVERY 4 TO l on inhaler 6 HOURS NEEDED FOR DIFFICULY BREATHING Ventolin 2019-11- No INHALE [address] [facility] HFA 90 2-20 04-03 TO 2 PUFFS [facility] mcg/actuati 00:00: 00:00 BY MOUTH [place] villalobos on inhaler 00 :00 EVERY [address] 6 HOURS NEEDED FOR DIFFICULY BREATHING Entresto 2019-11- No Take [address] [facility] St 97-103 mg 2-07 03-05 tablet by Luke s Tab 00:00: 00:00 mouth Medical 00 :00 twice Center daily sacubitriL- 2019-11 Yes Take 1 Meth mg valsartan 1-[address] ([facility]) 00:00: mouth Hospit a 97-103 mg 00 twice l tablet per daily tablet sacubitriL- 2019-11 Yes Take 1 Meth mg valsartan 1-[address] ([facility]) 00:00: mouth Hospit a 97-103 mg 00 twice l tablet per daily tablet sacubitriL- 2019-2021- No Take 1 Met hodi valsartan 1-04 08-23 tablet by ([facility]) 00:00: 00:00 mouth Hospi ta 97-103 mg 00 :00 twice l tablet per daily tablet atorvastati 2020-0 Yes 20mg QD Take [address] [facility] St n (LIPITOR) 8-31 tablet (20 Ronen kes 20 MG 00:00: mg total) Medical tablet 00 by mouth Center every evening. metoclopram 2020-0 Yes 10mg Take [address] [facility] [address] mallorie HCl -31 tablet (10 [facility] (REGLAN) 10 00:00: mg total) M edical MG tablet 00 by mouth 4 Cent er (four) times daily as needed for Nausea. insulin 2019-0 Yes 15U Inject 15 [facility] aspart -31 Units [facility] U-100 00:00: subcutaneo Medica l (NOVOLOG) 00 usly 3 Center 100 unit/mL (three) injection times daily before meals. metoclopram 2021- No 10mg Take [address] [facility] [address] mallorie HCl 07-29 11-21 tablet (10 [facility] (REGLAN) 10 00:00: 00:00 mg total) Medical MG tablet 00 :00 by mouth 4 Cent er (four) times daily as needed for Nausea. insulin 2021- No 15U Inject [address] [facility] [address] aspart 07-29 11-21 Units [facility] U-100 00:00: 00:00 subcutaneo Medic al (NOVOLOG) 00 :00 usly 3 Center 100 unit/mL (three) injection times daily before meals. atorvastati 2021- No 20mg QD Take [address] [facility] [address] n (LIPITOR) 07-29 05-27 tablet (20 L ukes 20 MG 00:00: 00:00 mg total) Medica l tablet 00 :00 by mouth Center every evening. isosorbide 2020- No 60mg QD Take [address] [facility] [address] mononitrate 07-29 05-18 tablet (60 L ukes (IMDUR) 60 00:00: 00:00 mg total) M edical MG 24 hr 00 :00 by mouth Center tablet daily. gabapentin 2020- No 300mg [id number] Take [address] [facility] (NEURONTIN) 07-29 05-09 [id number] capsule [facility] 300 MG 00:00: 00:00 3D (300 mg Medical capsule 00 :00 total) by Center mouth 3 (three) times daily. torsemide 2020- No 10mg QD Take 1 [facility] (DEMADEX) 07-29 04-30 tablet (10 Vipin es 10 MG 00:00: 00:00 mg total) Medica l tablet 00 :00 by mouth Center every evening. carvediloL 2020- No 25mg Take [address] [facility] (COREG) 25 8-31 04-09 tablet (25 Ronen kes MG tablet 00:00: 00:00 mg total) Me dical 00 :00 by mouth 2 Center (two) times daily with breakfast and dinner BREAKFAST AND DINNER. metFORMIN 2020-0 Yes 500mg Take 500 Uni vers 500 mg 6-11 mg by ity of tablet 16:02: mouth. [address] metFORMIN 2020-0 Yes 500mg Take 500 Uni vers 500 mg 6-11 mg by ity of tablet 16:02: mouth. [address] metFORMIN 2020-0 Yes 500mg Take 500 Uni vers 500 mg 6-11 mg by ity of tablet 16:02: mouth. [address] metFORMIN 2020-0 Yes 500mg Take 500 Uni vers 500 mg 6-11 mg by ity of tablet 16:02: mouth. [address] metFORMIN 2020-0 Yes 500mg Take 500 Uni vers 500 mg 6-11 mg by ity of tablet 16:02: mouth. [address] metFORMIN 2020-0 Yes 500mg Take 500 Uni vers 500 mg 6-11 mg by ity of tablet 16:02: mouth. [address] metFORMIN 2020-0 Yes 500mg Take 500 Uni vers 500 mg 6-11 mg by ity of tablet 16:02: mouth. [address] metFORMIN 2020-0 Yes 500mg Take 500 Uni vers 500 mg 6-11 mg by ity of tablet 16:02: mouth. [address] metFORMIN 2020-0 Yes 500mg Take 500 Uni vers 500 mg 6-11 mg by ity of tablet 16:02: mouth. [address] metFORMIN 2020-0 Yes 500mg Take 500 Uni vers 500 mg 6-11 mg by ity of tablet 16:02: mouth. [address] metFORMIN 2020-0 Yes 500mg Take 500 Uni vers 500 mg 6-11 mg by ity of tablet 16:02: mouth. [address] lactated 2020-0 Yes 1000mL at 75 Univer s ringers IV 6-11 mL/hr, ity of infusion 14:15: 1,000 [place] 1[place]000 [place] 00 IV Medical Infusion, Branch CONTINUOUS , Starting Anya 05/09/20 at 0915, Until Discontinu ed, Routine, PACU water for 2020-0 Yes PRN, Univers irrigation 6-11 Starting ity o f irrigation 13:54: Anya [place] solution 00 6/11/20 at Medic al 0854, [place] Until Discontinu ed, Routine, Intra-op NaCl 0.9% 2020-0 Yes PRN, Univers (NS) 05-09 Starting ity of injection 13:54: Anya [place] 00 05/09/20 at [facility] 0854, Branch Until Discontinu ed, Routine, Intra-op neomycin-po 2020-0 Yes PRN, Univer s lymyxin-dex 05-09 Starting ity of amethasone 13:53: Anya [place] (MAXITROL) 05/09/20 at [facility] ical 3.5 0853, [place] mg/g-10,000 Until unit/g-0.1 Discontinu % ed, ophthalmic Routine, ointment Intra-op gentamicin 2020-0 Yes PRN, Univers injection 05-09 Starting ity of 13:53: Anya [place] 00 05/09/20 at [facility] 0853, [place] Until Discontinu ed, KEVIN, Intra-op EPINEPHrine 2020-0 Yes PRN, Univer s (PF) 05-09 Starting ity of 1:1,000 (1 13:53: Anya [place] mg/mL) 05/09/20 at [facility] (ADRENALIN 0853, [place] (PF)) Until injection Discontinu ed, Routine, Intra-op DUOVISC 2020-0 Yes PRN, Univers (DUOVISC 05-09 Starting ity of VISCO 13:53: Anya [place] ELASTIC) 3 05/09/20 at [facility] ical %-4 %(0.5 0853, [place] mL) 1 % Until (0.55 mL) Discontinu intraocular ed, injection Routine, Intra-op dexamethaso 2020-0 Yes PRN, Univer s ne 05-09 Starting ity of (DECADRON) 13:52: Anya [place] injection 05/09/20 at [facility] 0852, [place] Until Discontinu ed, Routine, Intra-op ceFAZolin 2020-0 Yes PRN, Univers (ANCEF) 05-09 Starting ity of injection 13:51: Anya [place] 05/09/20 at [facility] 0851, [place] Until Discontinu ed, KEVIN, Intra-op bupivacaine 2020-0 Yes PRN, Univer s (PF) 0.25% 05-09 Starting ity o f 5 13:51: Anya [place] mL-lidocain 00 05/09/20 at [place] dical e 2% (PF) 5 0851, [place] mL (EYE Until BLOCK) Discontinu syringe 10 ed, mL Intra-op balanced 2020-0 Yes PRN, Univers salt soln 05-09 Starting ity of no.2 irrig. 13:50: Anya [place] (BSS) 00 05/09/20 at [facility] ophthalmic 0850, [place] solution Until Discontinu ed, Routine, Intra-op tetracaine 2020-0 Yes PRN, [facility] (PONTOCAINE 05-09 Starting ity of ) 0.5 % 13:38: Anya [place] ophthalmic 00 05/09/20 at Med ical drops 0838, [place] Until Discontinu ed, Routine, Intra-op mydriatic 2020-0 2020- No .5mL 0.5 mL, [facility] ers #5 05-09 Left Eye, ity of ophthalmic 13:15: 13:01 ONCE, 1 Elder as solution 00 :00 dose, Anya Medica l 0.5 mL 05/09/20 at [place] syringe 0815, Routine, DSU Pre-op lactated 2020-0 2020- No 1000mL at 20 Unive rs ringers IV 05-09 06-11 mL/hr, ity of infusion 13:00: 13:09 1,000 mL, Elder as 1,000 mL 00 :00 IV Medical Infusion, [place] ONCE, 1 dose, Anya 05/09/20 at 0800, Routine, DSU Pre-op metFORMIN 2020-0 Yes 500mg Take 500 Uni vers 500 mg 6-11 mg by ity of tablet 11:02: mouth. [address] metFORMIN 2020-0 Yes 500mg Take 500 Uni vers 500 mg 6-11 mg by ity of tablet 11:02: mouth. [address] metFORMIN 2020-0 Yes 500mg Take 500 Uni vers 500 mg 5-28 mg by ity of tablet 14:49: mouth. [address] metFORMIN 2020-0 Yes 500mg Take 500 Uni vers 500 mg 5-28 mg by ity of tablet 14:49: mouth. [address] metFORMIN 2020-0 Yes 500mg Take 500 Uni vers 500 mg 5-28 mg by ity of tablet 14:49: mouth. [address] lactated 2020-0 Yes 500mL at 75 Univers ringers IV 5-28 mL/hr, 500 ity of infusion 14:15: mL, IV [place] 500 mL 00 Infusion, Medical CONTINUOUS Branch , Starting Anya 04/25/20 at 0915, Until Discontinu ed, Routine, PACU tetracaine 2020-0 Yes PRN, Univers (PONTOCAINE 04-25 Starting ity of ) 0.5 % 13:50: Anya [place] ophthalmic 04/25/20 at [facility] ical drops 0850, [place] Until Discontinu ed, Routine, Intra-op water for 2020-0 Yes PRN, Univers irrigation 04-25 Starting ity o f irrigation 13:50: Anya [place] solution 00 04/25/20 at Medic al 0850, [place] Until Discontinu ed, Routine, Intra-op NaCl 0.9% 2019-0 Yes PRN, Univers (NS) 04-25 Starting ity of injection 13:50: Anya [place] 00 04/25/20 at [facility] 0850, Branch Until Discontinu ed, Routine, Intra-op neomycin-po 2020-0 Yes PRN, Univer s lymyxin-dex 04-25 Starting ity of amethasone 13:50: Anya [place] (MAXITROL) 04/25/20 at [facility] ical 3.5 0850, [place] mg/g-10,000 Until unit/g-0.1 Discontinu % ed, ophthalmic Routine, ointment Intra-op gentamicin 2019-0 Yes PRN, Univers injection 04-25 Starting ity of 13:49: Anya [place] 00 04/25/20 at [facility] 0849, Branch Until Discontinu ed, KEVIN, Intra-op EPINEPHrine 2020-0 Yes PRN, Univer s (PF) 04-25 Starting ity of 1:1,000 (1 13:49: Anya [place] mg/mL) 04/25/20 at [facility] (ADRENALIN 0849, Branch (PF)) Until injection Discontinu ed, Routine, Intra-op DUOVISC 2020-0 Yes PRN, Univers (DUOVISC 04-25 Starting ity of VISCO 13:49: Anya [place] ELASTIC) 3 04/25/20 at [facility] %-4 %(0.5 0849, Branch mL) 1 % Until (0.55 mL) Discontinu intraocular ed, injection Routine, Intra-op ceFAZolin 2020-0 Yes PRN, Univers (ANCEF) 04-25 Starting ity of injection 13:48: Anya [place] 04/25/20 at [facility] 0848, Branch Until Discontinu ed, KEVIN, Intra-op bupivacaine 2020-0 Yes PRN, Univer s (PF) 0.25% 04-25 Starting ity o f 5 13:48: Anya [place] mL-lidocain 00 04/25/20 at [place] dical e 2% (PF) 5 847, Branch mL (EYE Until BLOCK) Discontinu syringe 10 ed, mL Intra-op balanced 2020-0 Yes PRN, Univers salt soln 04-25 Starting ity of no.2 irrig. 13:48: Anya [place] (BSS) 00 04/25/20 at [place] [facility] 0848, Branch solution Until Discontinu ed, Routine, Intra-op mydriatic 2019-0 2020- No .5mL 0.5 mL, Univ ers #5 04-25 Right Eye, ity of ophthalmic 12:15: 12:58 ONCE, 1 [facility] as solution 00 :00 dose, Anya Medica l 0.5 mL 04/25/20 at [place] syringe 0715, Routine, DSU Pre-op lactated 2020-0 2020- No 500[facility] 04-25 mL/hr, 500 it y of infusion 12:15: 12:43 mL, IV [place] 500 mL 00 :00 Infusion, [facility] ONCE, 1 Branch dose, Anya 04/25/20 at 0715, Routine, DSU Pre-op metFORMIN 2020-0 Yes 500mg Take 500 Uni vers 500 mg 5-26 mg by ity of tablet 17:58: mouth. [place] 45 [facility] ILEVRO 0.3 2020-0 Yes Univers % DrpS 5-21 ity of 00:00: 00 [facility] ofloxacin 2020-0 Yes Univers 0.3 % 5-21 ity of ophthalmic 00:00: [place] solution 00 [facility] DUREZOL 2020-0 Yes Univers 0.05 % Drop 5-21 ity of 00:00: 00 [facility] ILEVRO 0.3 2020-0 Yes Univers % DrpS 5-21 ity of 00:00: 00 [facility] ofloxacin 2020-0 Yes Univers 0.3 % 5-21 ity of ophthalmic 00:00: [place] solution 00 Medical Branch DUREZOL 2020-0 Yes Univers 0.05 % Drop 5-21 ity of 00:00: [place] 00 Medical Branch ILEVRO 0.3 2020-0 Yes Univers % DrpS 5-21 ity of 00:00: [place] 00 Medical Branch ofloxacin 2020-0 Yes Univers 0.3 % 5-21 ity of ophthalmic 00:00: [place] solution 00 Medical Branch DUREZOL 2020-0 Yes Univers 0.05 % Drop 5-21 ity of 00:00: [place] 00 Medical Branch ILEVRO 0.3 2020-0 Yes Univers % DrpS 5-21 ity of 00:00: [place] 00 Medical Branch ofloxacin 2020-0 Yes Univers 0.3 % 5-21 ity of ophthalmic 00:00: [place] solution 00 Medical Branch DUREZOL 2020-0 Yes Univers 0.05 % Drop 5-21 ity of 00:00: [place] 00 Medical Branch ILEVRO 0.3 2020-0 Yes Univers % DrpS 5-21 ity of 00:00: [place] 00 Medical Branch ofloxacin 2020-0 Yes Univers 0.3 % 5-21 ity of ophthalmic 00:00: [place] solution Medical Branch DUREZOL 2020-0 Yes Univers 0.05 % Drop 5-21 ity of 00:00: [place] 00 Medical Branch ILEVRO 0.3 2020-0 Yes Univers % DrpS 5-21 ity of 00:00: [place] 00 Medical Branch ofloxacin 2020-0 Yes Univers 0.3 % 5-21 ity of ophthalmic 00:00: [place] solution 00 Medical Branch DUREZOL 2020-0 Yes Univers 0.05 % Drop 5-21 ity of 00:00: [place] 00 Medical Branch ILEVRO 0.3 2020-0 Yes Univers % DrpS 5-21 ity of 00:00: [place] 00 Medical Branch ofloxacin 2020-0 Yes Univers 0.3 % 5-21 ity of ophthalmic 00:00: [place] solution 00 Medical Branch DUREZOL 2020-0 Yes Univers 0.05 % Drop 5-21 ity of 00:00: [place] 00 Medical Branch ILEVRO 0.3 2020-0 Yes Univers % DrpS 5-21 ity of 00:00: [place] 00 Medical Branch ofloxacin 2020-0 Yes Univers 0.3 % 5-21 ity of ophthalmic 00:00: [place] solution 00 Medical Branch DUREZOL 2020-0 Yes Univers 0.05 % Drop 5-21 ity of 00:00: [place] 00 Medical Branch ILEVRO 0.3 2020-0 Yes Univers % DrpS 5-21 ity of 00:00: [place] 00 Medical Branch ofloxacin 2020-0 Yes Univers 0.3 % 5-21 ity of ophthalmic 00:00: [place] solution 00 Medical Branch DUREZOL 2020-0 Yes Univers 0.05 % Drop 5-21 ity of 00:00: [place] 00 Medical Branch ILEVRO 0.3 2020-0 Yes Univers % DrpS 5-21 ity of 00:00: [place] 00 Medical Branch ofloxacin 2020-0 Yes Univers 0.3 % 5-21 ity of ophthalmic 00:00: [place] solution 00 Medical Branch DUREZOL 2020-0 Yes Univers 0.05 % Drop 5-21 ity of 00:00: [place] 00 Medical Branch ILEVRO 0.3 2020-0 Yes Univers % DrpS 5-21 ity of 00:00: [place] 00 Medical Branch ofloxacin 2020-0 Yes Univers 0.3 % 5-21 ity of ophthalmic 00:00: [place] solution Medical Branch DUREZOL 2020-0 Yes Univers 0.05 % Drop 5-21 ity of 00:00: [place] 00 Medical Branch ILEVRO 0.3 2020-0 Yes Univers % DrpS 5-21 ity of 00:00: [place] 00 Medical Branch ofloxacin 2020-0 Yes Univers 0.3 % 5-21 ity of ophthalmic 00:00: [place] solution 00 Medical Branch DUREZOL 2020-0 Yes Univers 0.05 % Drop 5-21 ity of 00:00: [place] 00 Medical Branch ILEVRO 0.3 2020-0 Yes Univers % DrpS 5-21 ity of 00:00: [place] 00 Medical Branch ofloxacin 2020-0 Yes Univers 0.3 % 5-21 ity of ophthalmic 00:00: [place] solution 00 Medical Branch DUREZOL 2020-0 Yes Univers 0.05 % Drop 5-21 ity of 00:00: [place] 00 Medical Branch ILEVRO 0.3 2020-0 Yes Univers % DrpS 5-21 ity of 00:00: [place] 00 Medical Branch ofloxacin 2020-0 Yes Univers 0.3 % 5-21 ity of ophthalmic 00:00: [place] solution 00 Medical Branch DUREZOL 2020-0 Yes Univers 0.05 % Drop 5-21 ity of 00:00: [place] 00 Medical Branch ILEVRO 0.3 2020-0 Yes Univers % DrpS 5-21 ity of 00:00: Medical Branch ofloxacin 2020-0 Yes Univers 0.3 % 5-21 ity of ophthalmic 00:00: [place] solution 00 Medical Branch DUREZOL 2020-0 Yes Univers 0.05 % Drop 5-21 ity of 00:00: Medical Branch ILEVRO 0.3 2020-0 Yes Univers % DrpS 5-21 ity of 00:00: Medical Branch ofloxacin 2020-0 Yes Univers 0.3 % 5-21 ity of ophthalmic 00:00: [place] solution Medical Branch DUREZOL 2020-0 Yes Univers 0.05 % Drop 5-21 ity of 00:00: Medical Branch ILEVRO 0.3 2020-0 Yes Univers % DrpS 5-21 ity of 00:00: Medical Branch ofloxacin 2020-0 Yes Univers 0.3 % 5-21 ity of ophthalmic 00:00: solution Medical Branch DUREZOL 2020-0 Yes Univers 0.05 % Drop 5-21 ity of 00:00: Medical Branch atorvastati 2019-0 Yes 20mg QD Take 1 Meth mg n (LIPITOR) 5-11 tablet (20 st 20 mg 00:00: mg total) Hospita tablet 00 by mouth l daily. insulin 2019-0 Yes 15U Q.5D Inject [facility] ASPART 5-[address] (NovoLOG) 00:00: (15 Units Hos fabiola 100 unit/mL 00 total) l injection under the skin 2 (two) times a day. zolpidem 2019-0 Yes TAKE 1 [facility] (AMBIEN) 10 5-[address] mg tablet 00:00: MOUTH AT Hosp evelin 00 NIGHT l NEEDED FOR INSOMNIA , MAX 10 MG PER DAY atorvastati 2019-0 Yes 20mg Take 20 mg Methodi n (LIPITOR) 5-[address] 20 mg 00:00: Hospita tablet 00 l glipiZIDE 2019-0 Yes Take 1 Method i (GLUCOTROL) 5-[address] 10 MG 24 hr 00:00: mouth once Hospita tablet 00 daily l carvediloL 2019-0 Yes TAKE 1 [facility]o di (COREG) 25 5-[address] MG tablet 00:00: MOUTH Hospita 00 TWICE l DAILY WITH BREAKFAST AND DINNER isosorbide 2020-0 Yes 60mg Take 60 mg M ethodi mononitrate 5-[address] (IMDUR) 60 00:00: Hospita MG 24 hr 00 l tablet gabapentin 2020-0 Yes 300mg Take 300 Un anni 300 mg 5-11 mg by ity of capsule 00:00: mouth. [place] [facility] glipiZIDE 2020-0 Yes 10mg Take 10 mg Un anni XL 10 mg 24 5-11 by mouth. ity of hr tablet 00:00: [place] [facility] insulin 2020-0 Yes 15U inject 15 Unive rs aspart 5-11 Units ity of RAPID 100 00:00: under the Elder as unit/mL 00 skin. Medical injection Branch isosorbide 2020-0 Yes 60mg Take 60 mg U nivers mononitrate 5-11 by mouth. ity of 60 mg 24 hr 00:00: [place] [address] Medical Branch torsemide 2020-0 Yes 10mg Take 10 mg Un anni 10 mg 5-11 by mouth. ity of tablet 00:00: [place] [facility] zolpidem 10 2020-0 Yes 10mg Take 10 mg Univers mg tablet 5-11 by mouth. ity o f 00:00: [place] [facility] atorvastati 2020-0 Yes 20mg Take 20 mg Univers n 20 mg 5-11 by mouth. ity of tablet 00:00: [place] [facility] carvediloL 2020-0 Yes 25mg Take 25 mg U nivers 25 mg 5-11 by mouth. ity of tablet 00:00: [place] [facility] gabapentin 2020-0 Yes 300mg Take 300 Un anni 300 mg 5-11 mg by ity of capsule 00:00: mouth. [place] [facility] glipiZIDE 2020-0 Yes 10mg Take 10 mg Un anni XL 10 mg 24 5-11 by mouth. ity of hr tablet 00:00: [place] [facility] insulin 2020-0 Yes 15U Inject 15 Metho di ASPART 5-[address] (NovoLOG) 00:00: under the Hos fabiola 100 unit/mL 00 skin. l injection insulin 2020-0 Yes 15U inject 15 Unive rs aspart 5-11 Units ity of RAPID 100 00:00: under the Elder as unit/mL 00 skin. Medical injection Branch isosorbide 2020-0 Yes 60mg Take 60 mg U nivers mononitrate 5-11 by mouth. ity of 60 mg 24 hr 00:00: [place] tablet Medical Branch torsemide 2020-0 Yes 10mg Take 10 mg Un anni 10 mg 5-11 by mouth. ity of tablet 00:00: Medical Branch zolpidem 10 2020-0 Yes 10mg Take 10 mg Univers mg tablet 5-11 by mouth. ity o f 00:00: Medical Branch atorvastati 2019-0 Yes 20mg Take 20 mg Univers n 20 mg 5-11 by mouth. ity of tablet 00:00: Medical Branch carvediloL 2019-0 Yes 25mg Take 25 mg U nivers 25 mg 5-11 by mouth. ity of tablet 00:00: Medical Branch gabapentin 2020-0 Yes 300mg Take 300 Un anni 300 mg 5-11 mg by ity of capsule 00:00: mouth. Medical Branch glipiZIDE 2019-0 Yes 10mg Take 10 mg Un anni XL 10 mg 24 5-11 by mouth. ity of hr tablet 00:00: Medical Branch insulin 2019-0 Yes 15U inject 15 Unive rs aspart 5-11 Units ity of RAPID 100 00:00: under the [facility] as unit/mL 00 skin. Medical injection Branch isosorbide 2020-0 Yes 60mg Take 60 mg U nivers mononitrate 5-11 by mouth. ity of 60 mg 24 hr 00:00: [place] tablet Medical Branch zolpidem 2020-0 Yes TAKE 1 [facility] (AMBIEN) 10 5-[address] mg tablet 00:00: MOUTH AT Hosp evelin 00 NIGHT l NEEDED FOR INSOMNIA , MAX 10 MG PER DAY torsemide 2020-0 Yes 10mg Take 10 mg Un anni 10 mg 5-11 by mouth. ity of tablet 00:00: Medical Branch zolpidem 10 2020-0 Yes 10mg Take 10 mg Univers mg tablet 5-11 by mouth. ity o f 00:00: Medical Branch atorvastati 2020-0 Yes 20mg Take 20 mg Univers n 20 mg 5-11 by mouth. ity of tablet 00:00: Medical Branch carvediloL 2020-0 Yes 25mg Take 25 mg U nivers 25 mg 5-11 by mouth. ity of tablet 00:00: [place] [facility] gabapentin 2020-0 Yes 300mg Take 300 Un anni 300 mg 5-11 mg by ity of capsule 00:00: mouth. [place] [facility] glipiZIDE 2020-0 Yes 10mg Take 10 mg Un anni XL 10 mg 24 5-11 by mouth. ity of hr tablet 00:00: Medical Branch insulin 2020-0 Yes 15U inject 15 Unive rs aspart 5-11 Units ity of RAPID 100 00:00: under the [facility] as unit/mL 00 skin. Medical injection Branch isosorbide 2020-0 Yes 60mg Take 60 mg U nivers mononitrate 5-11 by mouth. ity of 60 mg 24 hr 00:00: [facility] 00 Medical Branch torsemide 2020-0 Yes 10mg Take 10 mg Un anni 10 mg 5-11 by mouth. ity of tablet 00:00: [place] [facility] zolpidem 10 2019-0 Yes 10mg Take 10 mg Univers mg tablet 5-11 by mouth. ity o f 00:00: [place] [facility] atorvastati 2020-0 Yes 20mg Take 20 mg Methodi n (LIPITOR) 5-[address] 20 mg 00:00: Hospita tablet 00 l atorvastati 2020-0 Yes 20mg Take 20 mg Univers n 20 mg 5-11 by mouth. ity of tablet 00:00: [place] [facility] carvediloL 2020-0 Yes 25mg Take 25 mg U nivers 25 mg 5-11 by mouth. ity of tablet 00:00: [place] [facility] gabapentin 2020-0 Yes 300mg Take 300 Un anni 300 mg 5-11 mg by ity of capsule 00:00: mouth. [place] [facility] glipiZIDE 2020-0 Yes 10mg Take 10 mg Un anni XL 10 mg 24 5-11 by mouth. ity of hr tablet 00:00: [place] [facility] insulin 2020-0 Yes 15U inject 15 Unive rs aspart 5-11 Units ity of RAPID 100 00:00: under the [facility] as unit/mL 00 skin. Medical injection Branch isosorbide 2020-0 Yes 60mg Take 60 mg U nivers mononitrate 5-11 by mouth. ity of 60 mg 24 hr 00:00: [place] tablet 00 Medical Branch torsemide 2020-0 Yes 10mg Take 10 mg Un anni 10 mg 5-11 by mouth. ity of tablet 00:00: Medical Branch zolpidem 10 2020-0 Yes 10mg Take 10 mg Univers mg tablet 5-11 by mouth. ity o f 00:00: Medical Branch atorvastati 2020-0 Yes 20mg Take 20 mg Univers n 20 mg 5-11 by mouth. ity of tablet 00:00: Medical Branch carvediloL 2020-0 Yes 25mg Take 25 mg U nivers 25 mg 5-11 by mouth. ity of tablet 00:00: Medical Branch glipiZIDE 2019-0 Yes Take 1 [facility] i (GLUCOTROL) 5-[address] 10 MG 24 hr 00:00: mouth once Hospita tablet 00 daily l gabapentin 2020-0 Yes 300mg Take 300 Un anni 300 mg 5-11 mg by ity of capsule 00:00: mouth. Medical Branch glipiZIDE 2019-0 Yes 10mg Take 10 mg Un anni XL 10 mg 24 5-11 by mouth. ity of hr tablet 00:00: Medical Branch insulin 2019-0 Yes 15U inject 15 Unive rs aspart 5-11 Units ity of RAPID 100 00:00: under the [place] as unit/mL 00 skin. Medical injection Branch isosorbide 2019-0 Yes 60mg Take 60 mg U nivers mononitrate 5-11 by mouth. ity of 60 mg 24 hr 00:00: tablet Medical Branch torsemide 2020-0 Yes 10mg Take 10 mg Un anni 10 mg 5-11 by mouth. ity of tablet 00:00: [facility] Branch zolpidem 10 2019-0 Yes 10mg Take 10 mg [facility] mg tablet 5-11 by mouth. ity o f 00:00: [facility] atorvastati 2020-0 Yes 20mg Take 20 mg Univers n 20 mg 5-11 by mouth. ity of tablet 00:00: [facility] Branch carvediloL 2020-0 Yes 25mg Take 25 mg U nivers 25 mg 5-11 by mouth. ity of tablet 00:00: [facility] gabapentin 2020-0 Yes 300mg Take 300 Un anni 300 mg 5-11 mg by ity of capsule 00:00: mouth. [place] [facility] glipiZIDE 2020-0 Yes 10mg Take 10 mg Un anni XL 10 mg 24 5-11 by mouth. ity of hr tablet 00:00: [place] [facility] carvediloL 2020-0 Yes TAKE 1 Metho di (COREG) 25 5-[address] MG tablet 00:00: MOUTH [facility] 00 TWICE l DAILY WITH BREAKFAST AND DINNER insulin 2020-0 Yes 15U inject 15 Unive rs aspart 5-11 Units ity of RAPID 100 00:00: under the [facility] as unit/mL 00 skin. Medical injection Branch isosorbide 2020-0 Yes 60mg Take 60 mg U nivers mononitrate 5-11 by mouth. ity of 60 mg 24 hr 00:00: [place] tablet [facility] torsemide 2020-0 Yes 10mg Take 10 mg Un anni 10 mg 5-11 by mouth. ity of tablet 00:00: [place] [facility] zolpidem 10 2019-0 Yes 10mg Take 10 mg [facility] mg tablet 5-11 by mouth. ity o f 00:00: [place] [facility] atorvastati 2019-0 Yes 20mg Take 20 mg Univers n 20 mg 5-11 by mouth. ity of tablet 00:00: [place] [facility] carvediloL 2020-0 Yes 25mg Take 25 mg U nivers 25 mg 5-11 by mouth. ity of tablet 00:00: [place] [facility] gabapentin 2020-0 Yes 300mg Take 300 Un anni 300 mg 5-11 mg by ity of capsule 00:00: mouth. [place] [facility] glipiZIDE 2020-0 Yes 10mg Take 10 mg Un anni XL 10 mg 24 5-11 by mouth. ity of hr tablet 00:00: [place] [facility] insulin 2020-0 Yes 15U inject 15 Unive rs aspart 5-11 Units ity of RAPID 100 00:00: under the [facility] as unit/mL 00 skin. Medical injection Branch isosorbide 2020-0 Yes 60mg Take 60 mg U nivers mononitrate 5-11 by mouth. ity of 60 mg 24 hr 00:00: [place] tablet 00 [facility] Branch isosorbide 2020-0 Yes 60mg Take 60 mg M ethodi mononitrate 5-[address] (IMDUR) 60 00:00: [facility] MG 24 hr 00 l tablet torsemide 2020-0 Yes 10mg Take 10 mg Un anni 10 mg 5-11 by mouth. ity of tablet 00:00: [facility] zolpidem 10 2020-0 Yes 10mg Take 10 mg [facility] mg tablet 5-11 by mouth. ity o f 00:00: [facility] atorvastati 2020-0 Yes 20mg Take 20 mg [facility] n 20 mg 5-11 by mouth. ity of tablet 00:00: [facility] carvediloL 2020-0 Yes 25mg Take 25 mg U nivers 25 mg 5-11 by mouth. ity of tablet 00:00: [facility] gabapentin 2020-0 Yes 300mg Take 300 Un anni 300 mg 5-11 mg by ity of capsule 00:00: mouth. [facility] glipiZIDE 2020-0 Yes 10mg Take 10 mg Un anni XL 10 mg 24 5-11 by mouth. ity of hr tablet 00:00: [facility] insulin 2020-0 Yes 15U inject 15 Unive rs aspart 5-11 Units ity of RAPID 100 00:00: under the [facility] as unit/mL 00 skin. Medical injection Branch isosorbide 2020-0 Yes 60mg Take 60 mg U nivers mononitrate 5-11 by mouth. ity of 60 mg 24 hr 00:00: [facility] 00 Medical Branch torsemide 2020-0 Yes 10mg Take 10 mg Un anni 10 mg 5-11 by mouth. ity of tablet 00:00: [facility] Branch zolpidem 10 2020-0 Yes 10mg Take 10 mg Univers mg tablet 5-11 by mouth. ity o f 00:00: Medical Branch insulin 2020-0 Yes 15U Inject 15 Metho di ASPART 5-[address] (NovoLOG) 00:00: under the [facility] fabiola 100 unit/mL 00 skin. l injection atorvastati 2020-0 Yes 20mg Take 20 mg Univers n 20 mg 5-11 by mouth. ity of tablet 00:00: [facility] Branch carvediloL 2020-0 Yes 25mg Take 25 mg U nivers 25 mg 5-11 by mouth. ity of tablet 00:00: [facility] Branch gabapentin 2020-0 Yes 300mg Take 300 Un anni 300 mg 5-11 mg by ity of capsule 00:00: mouth. [facility] glipiZIDE 2020-0 Yes 10mg Take 10 mg Un anni XL 10 mg 24 5-11 by mouth. ity of hr tablet 00:00: [facility] insulin 2020-0 Yes 15U inject 15 Unive rs aspart 5-11 Units ity of RAPID 100 00:00: under the [facility] as unit/mL 00 skin. Medical injection Branch isosorbide 2020-0 Yes 60mg Take 60 mg U nivers mononitrate 5-11 by mouth. ity of 60 mg 24 hr 00:00: [place] tablet Medical [facility] torsemide 2020-0 Yes 10mg Take 10 mg Un anni 10 mg 5-11 by mouth. ity of tablet 00:00: [place] [facility] zolpidem 10 2020-0 Yes 10mg Take 10 mg [facility] mg tablet 5-11 by mouth. ity o f 00:00: [place] [facility] atorvastati 2020-0 Yes 20mg Take 20 mg Univers n 20 mg 5-11 by mouth. ity of tablet 00:00: [facility] carvediloL 2020-0 Yes 25mg Take 25 mg U nivers 25 mg 5-11 by mouth. ity of tablet 00:00: [place] [facility] zolpidem 2020-0 Yes TAKE 1 Methodi (AMBIEN) 10 5-[address] mg tablet 00:00: MOUTH AT [facility]osp evelin 00 NIGHT l NEEDED FOR INSOMNIA , MAX 10 MG PER DAY gabapentin 2020-0 Yes 300mg Take 300 Un anni 300 mg 5-11 mg by ity of capsule 00:00: mouth. [facility] Branch glipiZIDE 2020-0 Yes 10mg Take 10 mg Un anni XL 10 mg 24 5-11 by mouth. ity of hr tablet 00:00: [place] [facility] insulin 2020-0 Yes 15U inject 15 Unive rs aspart 5-11 Units ity of RAPID 100 00:00: under the [facility] as unit/mL 00 skin. Medical injection Branch isosorbide 2020-0 Yes 60mg Take 60 mg U nivers mononitrate 5-11 by mouth. ity of 60 mg 24 hr 00:00: [place] tablet 00 Medical Branch torsemide 2020-0 Yes 10mg Take 10 mg Un anni 10 mg 5-11 by mouth. ity of tablet 00:00: [facility] zolpidem 10 2020-0 Yes 10mg Take 10 mg [facility] mg tablet 5-11 by mouth. ity o f 00:00: [facility] atorvastati 2020-0 Yes 20mg Take 20 mg Univers n 20 mg 5-11 by mouth. ity of tablet 00:00: [facility] Branch carvediloL 2020-0 Yes 25mg Take 25 mg U nivers 25 mg 5-11 by mouth. ity of tablet 00:00: [facility] Branch gabapentin 2020-0 Yes 300mg Take 300 Un anni 300 mg 5-11 mg by ity of capsule 00:00: mouth. [facility] Branch glipiZIDE 2020-0 Yes 10mg Take 10 mg Un anni XL 10 mg 24 5-11 by mouth. ity of hr tablet 00:00: Medical Branch insulin 2020-0 Yes 15U inject 15 Unive rs aspart 5-11 Units ity of RAPID 100 00:00: under the [facility] as unit/mL 00 skin. Medical injection Branch isosorbide 2020-0 Yes 60mg Take 60 mg U nivers mononitrate 5-11 by mouth. ity of 60 mg 24 hr 00:00: [facility] 00 Medical Branch torsemide 2020-0 Yes 10mg Take 10 mg Un anni 10 mg 5-11 by mouth. ity of tablet 00:00: Medical Branch zolpidem 10 2020-0 Yes 10mg Take 10 mg Univers mg tablet 5-11 by mouth. ity o f 00:00: Medical Branch atorvastati 2020-0 Yes 20mg Take 20 mg Univers n 20 mg 5-11 by mouth. ity of tablet 00:00: Medical Branch atorvastati 2020-0 Yes 20mg Take 20 mg Univers n 20 mg 5-11 by mouth. ity of tablet 00:00: Medical Branch carvediloL 2020-0 Yes 25mg Take 25 mg U nivers 25 mg 5-11 by mouth. ity of tablet 00:00: Medical Branch gabapentin 2020-0 Yes 300mg Take 300 Un anni 300 mg 5-11 mg by ity of capsule 00:00: mouth. Medical Branch glipiZIDE 2020-0 Yes 10mg Take 10 mg Un anni XL 10 mg 24 5-11 by mouth. ity of hr tablet 00:00: Medical Branch carvediloL 2020-0 Yes 25mg Take 25 mg U nivers 25 mg 5-11 by mouth. ity of tablet 00:00: Medical Branch insulin 2020-0 Yes 15U inject 15 Unive rs aspart 5-11 Units ity of RAPID 100 00:00: under the [facility] as unit/mL 00 skin. Medical injection Branch isosorbide 2020-0 Yes 60mg Take 60 mg U nivers mononitrate 5-11 by mouth. ity of 60 mg 24 hr 00:00: [place] tablet Medical Branch torsemide 2020-0 Yes 10mg Take 10 mg Un anni 10 mg 5-11 by mouth. ity of tablet 00:00: Medical Branch zolpidem 10 2020-0 Yes 10mg Take 10 mg Univers mg tablet 5-11 by mouth. ity o f 00:00: [place] [facility] gabapentin 2020-0 Yes 300mg Take 300 Un anni 300 mg 5-11 mg by ity of capsule 00:00: mouth. [place] [facility] glipiZIDE 2020-0 Yes 10mg Take 10 mg Un anni XL 10 mg 24 5-11 by mouth. ity of hr tablet 00:00: Medical Branch insulin 2020-0 Yes 15U inject 15 Unive rs aspart 5-11 Units ity of RAPID 100 00:00: under the [facility] as unit/mL 00 skin. Medical injection Branch isosorbide 2020-0 Yes 60mg Take 60 mg U nivers mononitrate 5-11 by mouth. ity of 60 mg 24 hr 00:00: [place] tablet 00 Medical Branch atorvastati 2020-0 Yes 20mg Take 20 mg Univers n 20 mg 5-11 by mouth. ity of tablet 00:00: Medical Branch carvediloL 2020-0 Yes 25mg Take 25 mg U nivers 25 mg 5-11 by mouth. ity of tablet 00:00: Medical Branch gabapentin 2020-0 Yes 300mg Take 300 Un anni 300 mg 5-11 mg by ity of capsule 00:00: mouth. Medical Branch glipiZIDE 2020-0 Yes 10mg Take 10 mg Un anni XL 10 mg 24 5-11 by mouth. ity of hr tablet 00:00: Medical Branch insulin 2020-0 Yes 15U inject 15 Unive rs aspart 5-11 Units ity of RAPID 100 00:00: under the [facility] as unit/mL 00 skin. Medical injection Branch isosorbide 2020-0 Yes 60mg Take 60 mg U nivers mononitrate 5-11 by mouth. ity of 60 mg 24 hr 00:00: tablet 00 Medical Branch torsemide 2020-0 Yes 10mg Take 10 mg Un anni 10 mg 5-11 by mouth. ity of tablet 00:00: Medical Branch torsemide 2020-0 Yes 10mg Take 10 mg Un anni 10 mg 5-11 by mouth. ity of tablet 00:00: Medical Branch zolpidem 10 2020-0 Yes 10mg Take 10 mg Univers mg tablet 5-11 by mouth. ity o f 00:00: Medical Branch zolpidem 10 2020-0 Yes 10mg Take 10 mg Univers mg tablet 5-11 by mouth. ity o f 00:00: Medical Branch atorvastati 2020-0 Yes 20mg Take 20 mg Univers n 20 mg 5-11 by mouth. ity of tablet 00:00: Medical Branch carvediloL 2020-0 Yes 25mg Take 25 mg U nivers 25 mg 5-11 by mouth. ity of tablet 00:00: Medical Branch gabapentin 2020-0 Yes 300mg Take 300 Un anni 300 mg 5-11 mg by ity of capsule 00:00: mouth. Medical Branch glipiZIDE 2020-0 Yes 10mg Take 10 mg Un anni XL 10 mg 24 5-11 by mouth. ity of hr tablet 00:00: Medical Branch insulin 2020-0 Yes 15U inject 15 Unive rs aspart 5-11 Units ity of RAPID 100 00:00: under the [facility] as unit/mL 00 skin. Medical injection Branch isosorbide 2020-0 Yes 60mg Take 60 mg U nivers mononitrate 5-11 by mouth. ity of 60 mg 24 hr 00:00: [place] tablet 00 Medical Branch torsemide 2020-0 Yes 10mg Take 10 mg Un anni 10 mg 5-11 by mouth. ity of tablet 00:00: Medical Branch zolpidem 10 2020-0 Yes 10mg Take 10 mg Univers mg tablet 5-11 by mouth. ity o f 00:00: Medical Branch atorvastati 2020-0 Yes 20mg Take 20 mg Univers n 20 mg 5-11 by mouth. ity of tablet 00:00: Medical Branch carvediloL 2020-0 Yes 25mg Take 25 mg U nivers 25 mg 5-11 by mouth. ity of tablet 00:00: Medical Branch gabapentin 2020-0 Yes 300mg Take 300 Un anni 300 mg 5-11 mg by ity of capsule 00:00: mouth. [place] [facility] glipiZIDE 2020-0 Yes 10mg Take 10 mg Un anni XL 10 mg 24 5-11 by mouth. ity of hr tablet 00:00: Medical Branch insulin 2019-0 Yes 15U inject 15 Unive rs aspart 5-11 Units ity of RAPID 100 00:00: under the [facility] as unit/mL 00 skin. Medical injection Branch isosorbide 2019-0 Yes 60mg Take 60 mg U nivers mononitrate 5-11 by mouth. ity of 60 mg 24 hr 00:00: [facility] 00 Medical Branch torsemide 2019-0 Yes 10mg Take 10 mg Un anni 10 mg 5-11 by mouth. ity of tablet 00:00: Medical Branch zolpidem 10 2019-0 Yes 10mg Take 10 mg Univers mg tablet 5-11 by mouth. ity o f 00:00: Medical Branch atorvastati 2019-0 Yes 20mg Take 20 mg Univers n 20 mg 5-11 by mouth. ity of tablet 00:00: Medical Branch carvediloL 2020-0 Yes 25mg Take 25 mg U nivers 25 mg 5-11 by mouth. ity of tablet 00:00: Medical Branch glipiZIDE 2019-0 2022- No Take 1 Metho di (GLUCOTROL) 04-[address] 10 MG 24 hr 00:00: 00:00 mouth once [facility]ospita tablet 00 :00 daily l carvediloL 2019-2022- No TAKE 1 Meth mg (COREG) 25 04-[address] MG tablet 00:00: 00:00 MOUTH Hospit a 00 :00 TWICE l DAILY WITH BREAKFAST AND DINNER isosorbide 2019-2022- No 60mg QD Take 1 Meth mg mononitrate 04-08 tablet (60 s t (IMDUR) 60 00:00: 00:00 mg total) H [facility]spita MG 24 hr 00 :00 by mouth l tablet daily. gabapentin 2019-2022- No 300mg [id number] Take 1 [facility] (NEURONTIN) 04-[id number] 300 mg 00:00: 00:00 3D (300 mg Hospita capsule 00 :00 total) by l mouth 3 (three) times a day. sacubitril- 2020-0 2020- No 1{tbl} Take 1 U nivers valsartan - 08-10 tablet by ity of (ENTRESTO) 00:00: 04:[place] 97[place]103 [place] 00 :00 Medical tablet Branch spironolact 2019-0 2020- No 25mg Take 25 mg Univers one 25 mg 04-08 08-10 by mouth. ity of tablet 00:00: 04:59 [place] 00 :00 Medical Branch sacubitril- 2020-0 2020- No 1{tbl} Take 1 U nivers valsartan 5-11 08-10 tablet by ity of (ENTRESTO) 00:00: 04:[place] 97[place] 00 :00 Medical tablet Branch spironolact 2019-0 2020- No 25mg Take 25 mg Univers one 25 mg 04-08 08-10 by mouth. ity of tablet 00:00: 04:59 [place] 00 :00 Medical Branch sacubitril- 2020-0 2020- No 1{tbl} Take 1 U nivers valsartan 5-11 08-10 tablet by ity of (ENTRESTO) 00:00: 04:59 [place]. [place] 97[place] 00 :00 Medical tablet Branch spironolact 2019-0 2020- No 25mg Take 25 mg Univers one 25 mg 04-08 08-10 by mouth. ity of tablet 00:00: 04:59 [place] 00 :00 Medical Branch sacubitril- 2020-0 2020- No 1{tbl} Take 1 U nivers valsartan 5-11 08-10 tablet by ity of (ENTRESTO) 00:00: 04:59 [place]. [place] 97[place]103 mg 00 :00 Medical tablet Branch spironolact 2020-0 2020- No 25mg Take 25 mg Univers one 25 mg 04-08-10 by mouth. ity of tablet 00:00: 04:59 [place] 00 :00 Medical Branch sacubitril- 2020-0 2020- No 1{tbl} Take 1 U nivers valsartan 04-08-10 tablet by ity of (ENTRESTO) 00:00: 04:59 [place]. [place] 97[place]103 mg 00 :00 Medical tablet Branch spironolact 2019- No 25mg Take 25 mg Univers one 25 mg 04-08-10 by mouth. ity of tablet 00:00: 04:59 [place] 00 :00 Medical Branch acetaminoph 2017-11 Yes 1{tbl} Take 1 Un anni en-codeine 0-26 tablet by ity of (TYLENOL-CO 00:00: mouth [place] DEINE #3) 00 every 6 Medical 300-30 mg (six) Branch tablet hours as needed for Pain (scale 4-6). acetaminoph 2017-11 Yes 1{tbl} Take 1 Un anni en-codeine 0-26 tablet by ity of (TYLENOL-CO 00:00: mouth [place] DEINE #3) 00 every 6 Medical 300-30 mg (six) Branch tablet hours as needed for Pain (scale 4-6). acetaminoph 2017-11 Yes 1{tbl} Take 1 Un anni en-codeine 0-26 tablet by ity of (TYLENOL-CO 00:00: mouth [place] DEINE #3) 00 every 6 Medical 300-30 mg (six) Branch tablet hours as needed for Pain (scale 4-6). acetaminoph 2017-11 Yes 1{tbl} Take 1 Un anni en-codeine 0-26 tablet by ity of (TYLENOL-CO 00:00: mouth [place] DEINE #3) 00 every 6 Medical 300-30 mg (six) Branch tablet hours as needed for Pain (scale 4-6). acetaminoph 2017-11 Yes 1{tbl} Take 1 Un anni en-codeine 0-26 tablet by ity of (TYLENOL-CO 00:00: mouth [place] DEINE #3) 00 every 6 Medical 300-30 mg (six) Branch tablet hours as needed for Pain (scale 4-6). acetaminoph 2017-11 Yes 1{tbl} Take 1 Un anni en-codeine 0-26 tablet by ity of (TYLENOL-CO 00:00: mouth [place] DEINE #3) 00 every 6 Medical 300-30 mg (six) Branch tablet hours as needed for Pain (scale 4-6). acetaminoph 2017-11 Yes 1{tbl} Take 1 Un anni en-codeine 0-26 tablet by ity of (TYLENOL-CO 00:00: mouth [place] DEINE #3) 00 every 6 Medical 300-30 mg (six) Branch tablet hours as needed for Pain (scale 4-6). acetaminoph 2017-11 Yes 1{tbl} Take 1 Un anni en-codeine 0-26 tablet by ity of (TYLENOL-CO 00:00: mouth [place] DEINE #3) 00 every 6 Medical 300-30 mg (six) Branch tablet hours as needed for Pain (scale 4-6). acetaminoph 2017-11 Yes 1{tbl} Take 1 Un anni en-codeine 0-26 tablet by ity of (TYLENOL-CO 00:00: mouth [place] DEINE #3) 00 every 6 Medical 300-30 mg (six) Branch tablet hours as needed for Pain (scale 4-6). acetaminoph 2017-11 Yes 1{tbl} Take 1 Un anni en-codeine 0-26 tablet by ity of (TYLENOL-CO 00:00: mouth [place] DEINE #3) 00 every 6 Medical 300-30 mg (six) Branch tablet hours as needed for Pain (scale 4-6). acetaminoph 2017-11 Yes 1{tbl} Take 1 Un anni en-codeine 0-26 tablet by ity of (TYLENOL-CO 00:00: mouth [place] DEINE #3) 00 every 6 Medical 300-30 mg (six) Branch tablet hours as needed for Pain (scale 4-6). acetaminoph 2017-11 Yes 1{tbl} Take 1 Un anni en-codeine 0-26 tablet by ity of (TYLENOL-CO 00:00: mouth [place] DEINE #3) 00 every 6 Medical 300-30 mg (six) Branch tablet hours as needed for Pain (scale 4-6). acetaminoph 2017-11 Yes 1{tbl} Take 1 Un anni en-codeine 0-26 tablet by ity of (TYLENOL-CO 00:00: mouth [place] DEINE #3) 00 every 6 Medical 300-30 mg (six) Branch tablet hours as needed for Pain (scale 4-6). acetaminoph 2017-11 Yes 1{tbl} Take 1 Un anni en-codeine 0-26 tablet by ity of (TYLENOL-CO 00:00: mouth [place] DEINE #3) 00 every 6 Medical 300-30 mg (six) Branch tablet hours as needed for Pain (scale 4-6). acetaminoph 2017-11 Yes 1{tbl} Take 1 Un anni en-codeine 0-26 tablet by ity of (TYLENOL-CO 00:00: mouth [place] DEINE #3) 00 every 6 Medical 300-30 mg (six) Branch tablet hours as needed for Pain (scale 4-6). acetaminoph 2017-11 Yes 1{tbl} Take 1 Un anni en-codeine 0-26 tablet by ity of (TYLENOL-CO 00:00: mouth [place] DEINE #3) 00 every 6 Medical 300-30 mg (six) Branch tablet hours as needed for Pain (scale 4-6). acetaminoph 2017-11 Yes 1{tbl} Take 1 Un anni en-codeine 0-26 tablet by ity of (TYLENOL-CO 00:00: mouth [place] DEINE #3) 00 every 6 Medical 300-30 mg (six) Branch tablet hours as needed for Pain (scale 4-6). acetaminoph 2017-11 Yes 1{tbl} Take 1 Un anni en-codeine 0-26 tablet by ity of (TYLENOL-CO 00:00: mouth [place] DEINE #3) 00 every 6 Medical 300-30 mg (six) Branch tablet hours as needed for Pain (scale 4-6). Immunizations Ordered Immunization Filled Immunization Date Status Commen ts Source Name Name Influenza TIV (IM) 2022-08-20 Completed JAMES Renee 00:00:00 [facility] SARS-COV-2 COVID-19 2021-10-07 Completed Unive rsity of MODERNA BOOSTER 00:00:00 [facility] ica VACCINE Branch SARS-COV-2 COVID-19 2021-10-07 Completed Unive rsity of MODERNA 0.25ML 00:00:00 [facility] [place] [facility] VACCINE Branch Td 2021-06-01 Completed University 00:00:00 [facility] Td 2021-06-01 Completed University 00:00:00 [facility] TD, NOS 2021-06-01 Completed University of 00:00:00 [facility] SARS-COV-2 COVID-19 2021-01-28 Completed Unive rsity of MODERNA VACCINE 00:00:00 [facility] ical Branch SARS-COV-2 COVID-19 2021-01-28 Completed Unive rsity of MODERNA VACCINE 00:00:00 [facility] Branch SARS-COV-2 COVID-19 2021-01-28 Completed Unive rsity of MODERNA 12+ YRS 00:00:00 [facility] VACCINE Branch SARS-COV-2 COVID-19 2020-12-31 Completed Unive rsity of MODERNA VACCINE 00:00:00 [facility] SARS-COV-2 COVID-19 2020-12-31 Completed Unive rsity of MODERNA VACCINE 00:00:00 [facility] Branch SARS-COV-2 COVID-19 2020-12-31 Completed Unive rsity of MODERNA 12+ YRS 00:00:00 [facility] ical VACCINE Branch (Shingrix, 2020-10-[address] [facility] Recombinant, 00:00:00 [facility] Adjuvanted) Zoster Vaccine IM (Shingrix, 2020-10-[address] [facility] Recombinant, 00:00:00 [facility] Adjuvanted) Zoster Vaccine IM Influenza TIV (IM) 2020-07-[address] [facility] 00:00:00 [facility] Influenza TIV (IM) 2020-07-[address] [facility] 00:00:00 [facility] SHINGLES VARICELLA 2020-06-[address] [facility] (ZOSTAVAX) ZOSTER 00:00:00 [facility] SHINGLES VARICELLA 2020-06-[address] [facility] (ZOSTAVAX) ZOSTER 00:00:00 [facility] Influenza TIV (IM) 2018-09-[address] [facility] 00:00:00 [facility] Pneumococcal 2018-09-[address] [facility] Polysaccharide 00:00:00 Medical nter (Pneumovax) Influenza TIV (IM) 2018-09-[address] [facility] 00:00:00 [facility] Center Pneumococcal 2018-09-[address] [facility] Polysaccharide 00:00:00 Medical Ce nter (Pneumovax) Influenza TIV (IM) 2017-10-[address] [facility] 00:00:00 [facility] Influenza TIV (IM) 2017-10-[address] [facility] 00:00:00 [facility] Pneumococcal 2014-12-[address] [facility] Polysaccharide 00:00:00 Medical Ce nter (Pneumovax) Pneumococcal 2014-12-[address] [facility] Polysaccharide 00:00:00 Medical Ce nter (Pneumovax) Vital Signs Vital Name Observation Time Observation Value Comments Source HEIGHT 2023-06-11 10:49:00 157.5 cm WEIGHT 2023-06-11 10:49:00 115.667 kg HEIGHT 2023-04-02 05:33:00 157.5 cm WEIGHT 2023-04-02 05:33:00 115.214 kg HEIGHT 2023-04-02 05:33:00 157.5 cm WEIGHT 2023-04-02 05:33:00 115.214 kg WEIGHT 2023-03-30 03:39:00 117.482 kg WEIGHT 2023-03-29 06:27:00 117.618 kg WEIGHT 2023-03-28 06:47:00 116.983 kg WEIGHT 2023-03-27 11:00:00 117.346 kg WEIGHT 2023-03-26 04:50:00 116.166 kg WEIGHT 2023-03-25 05:48:00 118.026 kg WEIGHT 2023-03-24 09:51:00 118.071 kg WEIGHT 2023-03-22 06:45:00 115.577 kg WEIGHT 2023-03-21 10:00:00 121.11 kg WEIGHT 2023-03-19 05:00:00 124.059 kg WEIGHT 2023-03-18 11:00:00 123.56 kg HEIGHT 2023-03-16 10:00:00 157.5 cm WEIGHT 2023-03-16 10:00:00 123.242 kg WEIGHT 2023-03-13 04:00:00 123.197 kg WEIGHT 2023-03-30 03:39:00 117.482 kg WEIGHT 2023-03-29 06:27:00 117.618 kg WEIGHT 2023-03-28 06:47:00 116.983 kg WEIGHT 2023-03-27 11:00:00 117.346 kg WEIGHT 2023-03-26 04:50:00 116.166 kg WEIGHT 2023-03-25 05:48:00 118.026 kg WEIGHT 2023-03-24 09:51:00 118.071 kg WEIGHT 2023-03-22 06:45:00 115.577 kg WEIGHT 2023-03-21 10:00:00 121.11 kg WEIGHT 2023-03-19 05:00:00 124.059 kg WEIGHT 2023-03-18 11:00:00 123.56 kg HEIGHT 2023-03-16 10:00:00 157.5 cm WEIGHT 2023-03-16 10:00:00 123.242 kg WEIGHT 2023-03-13 04:00:00 123.197 kg HEIGHT 2023-03-12 11:05:00 160 cm WEIGHT 2023-03-12 11:05:00 122.925 kg HEIGHT 2023-03-09 10:14:00 160 cm WEIGHT 2023-03-09 10:14:00 122.471 kg HEIGHT 2023-03-09 10:14:00 160 cm WEIGHT 2023-03-09 10:14:00 122.471 kg HEIGHT 2023-03-01 10:45:00 160 cm WEIGHT 2023-03-01 10:45:00 123.378 kg HEIGHT 2023-03-01 10:45:00 160 cm WEIGHT 2023-03-01 10:45:00 123.378 kg WEIGHT 2022-11-16 05:00:00 120.43 kg WEIGHT 2022-11-15 03:00:00 119.75 kg WEIGHT 2022-11-14 05:00:00 119.795 kg HEIGHT 2022-11-13 23:31:00 160 cm WEIGHT 2022-11-13 23:31:00 119.795 kg WEIGHT 2022-11-13 12:01:00 119.75 kg WEIGHT 2022-11-16 05:00:00 120.43 kg WEIGHT 2022-11-15 03:00:00 119.75 kg WEIGHT 2022-11-14 05:00:00 119.795 kg HEIGHT 2022-11-13 23:31:00 160 cm WEIGHT 2022-11-13 23:31:00 119.795 kg WEIGHT 2022-11-13 12:01:00 119.75 kg HEIGHT 2022-11-13 10:59:00 160 cm WEIGHT 2022-11-13 10:59:00 119.75 kg HEIGHT 2022-11-13 10:59:00 160 cm WEIGHT 2022-11-13 10:59:00 119.75 kg HEIGHT 2022-10-19 10:39:00 160 cm WEIGHT 2022-10-19 10:39:00 124.286 kg HEIGHT 2022-10-19 10:39:00 160 cm WEIGHT 2022-10-19 10:39:00 124.286 kg HEIGHT 2022-04-03 10:42:00 160 cm WEIGHT 2022-04-03 10:42:00 124.059 kg HEIGHT 2022-04-03 10:42:00 160 cm WEIGHT 2022-04-03 10:42:00 124.059 kg Heart rate 2021-06-01 07:30:00 58 /min [facility] Respiratory rate 2021-06-01 07:30:00 21 /min [facility] Oxygen saturation in 2021-06-01 07:30:00 78 /min [facility] Arterial blood by [facility] Pulse oximetry Branch Systolic blood 2021-06-01 07:00:00 129 mm[Hg] Univer sity of pressure [facility] Diastolic blood 2021-06-01 07:00:00 49 mm[Hg] Unive rsity of pressure [facility] Body temperature 2021-06-01 04:47:00 37.22 Debbi [facility] Body height 2021-06-01 04:47:00 160 cm Universi ty [facility] Body weight 2021-06-01 04:47:00 118.389 kg Universi ty [facility] BMI 2021-06-01 04:47:00 [facility] 2021-04-14 06:00:00 120.9 kg WEIGHT 2021-04-12 06:00:00 119.1 kg HEIGHT 2021-04-11 03:06:00 160 cm WEIGHT 2021-04-11 03:06:00 113.399 kg WEIGHT 2021-04-14 06:00:00 120.9 kg WEIGHT 2021-04-12 06:00:00 119.1 kg HEIGHT 2021-04-11 03:06:00 160 cm WEIGHT 2021-04-11 03:06:00 113.399 kg HEIGHT 2021-03-28 12:03:00 160 cm WEIGHT 2021-03-28 12:03:00 124.83 kg HEIGHT 2021-03-28 12:03:00 160 cm WEIGHT 2021-03-28 12:03:00 124.83 kg HEIGHT 2020-12-18 10:03:00 160 cm WEIGHT 2020-12-18 10:03:00 122.063 kg HEIGHT 2020-12-18 10:03:00 160 cm WEIGHT 2020-12-18 10:03:00 122.063 kg HEIGHT 2020-11-15 09:59:00 160 cm WEIGHT 2020-11-15 09:59:00 118.389 kg HEIGHT 2020-11-15 09:59:00 160 cm WEIGHT 2020-11-15 09:59:00 118.389 kg HEIGHT 2020-07-29 00:00:00 160 cm WEIGHT 2020-07-29 00:00:00 114.306 kg WEIGHT 2020-07-15 00:00:00 112.3 kg HEIGHT 2020-07-15 00:00:00 160 cm WEIGHT 2020-07-15 00:00:00 112.3 kg HEIGHT 2020-07-15 00:00:00 160 cm Systolic blood 2020-05-09 14:25:00 109 mm[Hg] Univer sity of pressure [facility] Diastolic blood 2020-05-09 14:25:00 61 mm[Hg] Unive rsity of pressure [facility] Heart rate 2020-05-09 14:25:00 72 /min [facility] Respiratory rate 2020-05-09 14:25:00 18 /min [facility] Oxygen saturation in 2020-05-09 14:25:00 96 /min [facility] Arterial blood by [facility] Pulse oximetry Branch Body temperature 2020-05-09 14:03:00 35.72 Debbi [facility] Body height 2020-05-06 18:39:00 160 cm [facility] Body weight 2020-05-06 18:39:00 106.1 kg [facility] BMI 2020-05-06 18:39:00 41.45 kg/m2 [facility] Systolic blood 2020-05-09 14:25:00 109 mm[Hg] Univer [facility]ity of pressure [facility] Diastolic blood 2020-05-09 14:25:00 61 mm[Hg] Unive rsity of pressure [facility] Heart rate 2020-05-09 14:25:00 72 /min [facility] Respiratory rate 2020-05-09 14:25:00 18 /min [facility] Oxygen saturation in 2020-05-09 14:25:00 96 /min [facility] blood [facility] [place] [facility] P[facility] Body temperature 2020-05-09 14:03:00 35.72 Debib [facility] Body height 2020-05-06 18:39:00 160 cm [facility] Body weight 2020-05-06 18:39:00 106.1 kg [facility] BMI 2020-05-06 18:39:00 41.45 kg/m2 [facility] Systolic blood 2020-04-25 14:35:00 130 mm[Hg] Univer [facility]ity of [facility] Diastolic blood 2020-04-25 14:35:00 75 mm[Hg] Unive rsity of pressure [facility] Heart rate 2020-04-25 14:35:00 58 /min [facility] Respiratory rate 2020-04-25 14:35:00 13 /min [facility] Oxygen saturation in 2020-04-25 14:35:00 95 /min [facility] Arterial blood by [place] [facility] P[facility] oxim[facility] Body temperature 2020-04-25 14:07:00 36.17 Debbi [facility] Body height 2020-04-23 17:45:00 160 cm [facility] Body weight 2020-04-23 17:45:00 106.142 kg [facility] BMI 2020-04-23 17:45:00 41.45 kg/m2 Universi [facility] of [facility] Systolic blood 2020-04-25 14:35:00 130 mm[Hg] Univer sity of pressure [facility] Diastolic blood 2020-04-25 14:35:00 75 mm[Hg] Unive rsity of [facility] Heart rate 2020-04-25 14:35:00 58 /min Universi ty of [facility] Respiratory rate 2020-04-25 14:35:00 13 /min Univ [facility] Oxygen saturation in 2020-04-25 14:35:00 95 /min University Arterial blood by [facility] Pulse oximetry Branch Body temperature 2020-04-25 14:07:00 36.17 Debbi Univ [facility] Body height 2020-04-23 17:45:00 160 cm Universi ty [facility] Body weight 2020-04-23 17:45:00 106.142 [address] [facility] BMI 2020-04-23 17:45:00 41.45 kg/m2 [facility] HEIGHT 2020-04-08 00:00:00 165.1 cm WEIGHT 2020-04-08 00:00:00 106.414 kg HEIGHT 2020-04-08 00:00:00 165.1 cm WEIGHT 2020-04-08 00:00:00 106.414 kg Systolic blood 2023-05-27 15:34:00 117 mm[Hg] [facility] Diastolic blood 2023-05-27 15:34:00 63 mm[Hg] [facility] pressure Heart rate 2023-05-27 15:34:00 58 /min [facility] Respiratory rate 2023-05-27 15:34:00 12 /min [facility] Body height 2023-05-27 15:34:00 162.6 cm [facility] Body weight 2023-05-27 15:34:00 109.68 kg [facility] BMI 2023-05-27 15:34:00 41.50 kg/m2 [facility] Oxygen saturation in 2023-05-27 15:34:00 94 /min [facility] Arterial blood by Pulse oximetry Systolic blood 2023-03-01 10:45:00 135 mm[Hg] [facility] Diastolic blood 2023-03-01 10:45:00 63 mm[Hg] [facility] Heart rate 2023-03-01 10:45:00 44 /min [facility] Body temperature 2023-03-01 10:45:00 36 Debbi [facility] Respiratory rate 2023-03-01 10:45:00 20 /min [facility] Body height 2023-03-01 10:45:00 160 cm [facility] Body weight 2023-03-01 10:45:00 123.378 kg [facility] BMI 2023-03-01 10:45:00 48.18 kg/m2 [facility] Oxygen saturation in 2023-03-01 10:45:00 96 /min [facility] Arterial blood by Medical Ce nter Pulse oximetry Systolic blood 2021-04-15 14:51:00 115 mm[Hg] [facility] Diastolic blood 2021-04-15 14:51:00 56 mm[Hg] [facility] Heart rate 2021-04-15 14:51:00 69 /min [facility] Body temperature 2021-04-15 14:51:00 36 Debbi [facility] Respiratory rate 2021-04-15 14:51:00 18 /min [facility] Oxygen saturation in 2021-04-15 14:51:00 93 /min [facility] Arterial blood by Medical Ce nter Pulse oximetry Body weight 2021-04-14 06:00:00 120.9 kg [facility] BMI 2021-04-14 06:00:00 47.21 kg/m2 [facility] Body height 2021-04-11 03:06:00 160 cm [facility] Body height 2021-04-02 14:37:00 162.6 cm [facility] Body weight 2021-04-02 14:37:00 122.471 kg [facility] BMI 2021-04-02 14:37:00 46.35 kg/m2 [facility] Procedures Procedure Date / Time Performing Clinician Source Performed CV HOLTER MONITOR 48 HOUR 2023-06-04 18:05:19 [facility] 2023-05-27 15:49:00 Younis, [facility] POCT-GLUCOSE METER 2022-11-16 12:10:00 Sammie [facility] POCT-GLUCOSE METER 2022-11-16 06:17:00 Sammie [facility] BASIC METABOLIC PANEL 2022-11-16 04:29:00 Sammie [facility] POCT-GLUCOSE METER 2022-11-15 22:01:00 Sammie [facility] POCT-GLUCOSE METER 2022-11-15 16:51:00 Sammie, [facility] POCT-GLUCOSE METER 2022-11-15 11:01:00 Sammie [facility] BASIC METABOLIC PANEL 2022-11-15 08:59:00 Sammie [facility] POCT-GLUCOSE METER 2022-11-15 06:37:00 Sammie, [facility] POCT-GLUCOSE METER 2022-11-14 21:08:00 Sammie, [facility] 2D ECHO W/ DOPPLER 2022-11-14 17:03:33 Sen [facility] (CW/PW/COLOR) Jean-Pierre Sharif [place] POCT-GLUCOSE METER 2022-11-14 16:37:00 Sammie [facility] POCT-GLUCOSE METER 2022-11-14 10:53:00 Sammie [facility] POCT-GLUCOSE METER 2022-11-14 06:36:00 Shawn Carias [facility] CALCIUM, IONIZED 2022-11-14 04:31:00 Shawn Carias [facility] COMPREHENSIVE METABOLIC 2022-11-14 04:31:00 Shawn Carias [facility] PANEL [facility] MAGNESIUM 2022-11-14 04:31:00 Aretha, Shawn Wadesan [facility] PHOSPHORUS 2022-11-14 04:31:00 Aretha, Shawn [facility] CBC W/PLT COUNT & AUTO 2022-11-14 04:31:00 Aretha, Shawn [facility] DIFFERENTIAL [facility] CREATINE KINASE (CK) 2022-11-14 04:31:00 Aretha, [facility] CBC W/PLT COUNT & AUTO 2022-11-14 04:31:00 Aretha, Shawn [facility] PROTEIN, RANDOM URINE 2022-11-13 22:33:00 Aretha, [facility] CREATININE, RANDOM URINE 2022-11-13 22:33:00 Aretha, Shawndhiraj Brownn C [facility] US RENAL COMPLETE 2022-11-13 21:25:00 Aretha, Shawn [facility] POCT-GLUCOSE METER 2022-11-13 20:40:00 Aretha, [facility] SARS-COV2/INFLUENZA/RSV 2022-11-13 19:13:00 Steffanie Puente [facility] RT-PCR [facility] BLOOD GAS, VENOUS 2022-11-13 19:13:00 Steffanie Puente [facility] KETONE, BLOOD 2022-11-13 19:13:00 Steffanie Puente [facility] ED ECG INTERPRETATION 2022-11-13 18:19:20 Steffanie Puente [facility] URINALYSIS W/ REFLEX 2022-11-13 13:29:00 Steffanie Puente [facility] URINE CULTURE [facility] COMPREHENSIVE METABOLIC 2022-11-13 13:22:[address] [facility] PANEL [facility] MAGNESIUM 2022-11-13 13:22:00 Steffanie Puente JAMES [facility] PHOSPHORUS 2022-11-13 13:22:00 Steffanie Puente [facility] CBC W/PLT COUNT & AUTO 2022-11-13 13:21:00 Puente Steffanieanusha RAMIREZ [facility] DIFFERENTIAL [facility] HIGH SENSITIVITY TROPONIN 2022-11-13 13:21:00 Steffanie Puente CH I [facility] B-TYPE NATRIURETIC FACTOR 2022-11-13 13:21:[address] [facility] (BNP) [facility] CBC W/PLT COUNT & AUTO 2022-11-13 13:21:00 Puente Steffanie [facility] DIFFERENTIAL [facility] ECG 12-LEAD 2022-11-13 12:07:38 Unknown, [facility] ECG 12-LEAD 2022-11-13 12:07:38 Unknown, [facility] EKG-SCANNED 2022-11-13 00:00:00 Provider [facility] Scanning [place] B NATRIURETIC PEPTIDE 2022-10-09 14:39:00 [facility] HEM[facility] 2022-10-09 14:39:00 [facility] 2022-10-09 14:39:00 Taz [facility] PANEL TRANSTHORACIC 2022-10-08 16:41:[facility] W CONT STRAIN 3D IF NEEDED ECG 12-LEAD 2022-09-11 20:19:00 Jesús [facility] XR SHOULDER COMPLETE 2 2022-04-03 11:48:00 Sincere Wade CH, I [facility] MIN LEFT Center [facility] 2022-04-03 11:31:00 Sincere Wade [facility] HEMOGLOBIN A1C 2022-04-03 11:31:00 Sincere Wade [facility] CBC W/PLT COUNT & AUTO 2022-04-03 11:31:00 Sincere Wade CH, I [facility] TSH/FREE T4 IF INDICATED 2022-04-03 11:31:00 Sincere Wade [facility] URIC ACID 2022-04-03 11:31:00 Sincere Wade [facility] CBC W/PLT COUNT & AUTO 2022-04-03 11:31:00 Sincere Wade I [facility] SARS-COV-2 COVID-19 2021-10-07 17:00:36 Doctor Unassigned, [facility] VACCINE BOOSTER,0.25ML,IM [place] [facility] (MODERNA) CT KNEE RIGHT WO CONTRAST 2021-06-01 06:08:32 Aneta Boucher [facility] XR KNEE 3 VW RIGHT 2021-06-01 05:01:40 Aneta Boucher [facility] CONSENT/REFUSAL FOR 2021-06-01 04:40:38 Doctor Unassigned, [facility] DIAGNOSIS AND TREATMENT [place] [facility] POCT-GLUCOSE METER 2021-04-15 16:14:00 Jana Valdovinos [facility] POCT-GLUCOSE METER 2021-04-15 11:28:00 Jana Valdovinos [facility] POCT-GLUCOSE METER 2021-04-15 07:40:00 Jana Valdovinos [facility] BASIC METABOLIC PANEL (7) 2021-04-15 04:53:00 Jana Valdovinos [facility] MAGNESIUM 2021-04-15 04:53:00 Jana Valdovinos [facility] POCT-GLUCOSE METER 2021-04-14 19:54:00 Jana Valdovinos [facility] POCT-GLUCOSE METER 2021-04-14 16:17:00 Jana Valdovinos [facility] POCT-GLUCOSE METER 2021-04-14 11:25:00 Jana Valdovinos [facility] POCT-GLUCOSE METER 2021-04-14 07:38:00 Jana Valdovinos [facility] BASIC METABOLIC PANEL (7) 2021-04-14 03:43:00 Jana Valdovinos [facility] MAGNESIUM 2021-04-14 03:43:00 [facility] 2021-04-13 21:25:00 Jana Valdovinos [facility] POCT-GLUCOSE METER 2021-04-13 17:02:00 Jana Valdovinos [facility] URINE CULTURE 2021-04-13 12:57:00 [facility] POCT-GLUCOSE METER 2021-04-13 12:24:00 Jana Valdovinos [facility] POCT-GLUCOSE METER 2021-04-13 08:10:00 Jana Valdovinos [facility] CALCIUM, IONIZED 2021-04-13 04:49:00 [facility] COMPREHENSIVE METABOLIC 2021-04-13 04:49:00 [facility] PANEL Center MAGNESIUM 2021-04-13 04:49:00 [facility] PHOSPHORUS 2021-04-13 04:49:00 [facility] CBC W/PLT COUNT & AUTO 2021-04-13 04:49:00 [facility] DIFFERENTIAL [place] CBC W/PLT COUNT & AUTO 2021-04-13 04:49:00 [facility] POCT-GLUCOSE METER 2021-04-12 20:47:00 Jana Valdovinos [facility] POCT-GLUCOSE METER 2021-04-12 16:45:00 Jana Valdovinos [facility] POCT-GLUCOSE METER 2021-04-12 12:01:00 Jana Valdovinos [facility] 2D ECHO W/ DOPPLER 2021-04-12 10:13:56 Nicko Byrd [facility] (CW/PW/COLOR) Center APTT 2021-04-12 09:42:00 Jana Valdovinos [facility] POCT-GLUCOSE METER 2021-04-12 08:00:00 Jana Valdovinso [facility] MAGNESIUM 2021-04-12 04:02:00 Keke Mckeon [facility] PHOSPHORUS 2021-04-12 04:02:00 Keke Mckeon [facility] CBC W/PLT COUNT & AUTO 2021-04-12 04:02:00 Keke Mckeon CH [facility] CALCIUM, IONIZED 2021-04-12 04:02:00 [facility] COMPREHENSIVE METABOLIC 2021-04-12 04:02:00 [facility] CBC W/PLT COUNT & AUTO 2021-04-12 04:02:00 Keke Mckeon CH [facility] URINALYSIS W/ MICROSCOPIC 2021-04-12 01:59:00 Keke Mckeon [facility] SODIUM, RANDOM URINE 2021-04-12 01:59:00 Keke Mckeon [facility] CREATININE, RANDOM URINE 2021-04-12 01:59:00 Keke Mckeon [facility] PROTEIN, RANDOM URINE 2021-04-12 01:59:00 Keke Mckeon [facility] APTT 2021-04-11 23:33:00 Keke Mckeon [facility] APTT 2021-04-11 22:21:00 Keke Mckeon [facility] POCT-GLUCOSE METER 2021-04-11 21:33:00 Keke Mckeon [facility] VENOUS DOPPLER LEGS 2021-04-11 19:28:00 Keke Mckeon [facility] POCT-GLUCOSE METER 2021-04-11 17:08:00 Keke Mckeon [facility] CBC (HEMOGRAM ONLY) 2021-04-11 15:13:00 Keke Mckeon [facility] APTT 2021-04-11 15:13:00 Keke Mckeon [facility] NM LUNG PERFUSION SCAN 2021-04-11 13:12:00 Yi Luna [facility] POCT-GLUCOSE METER 2021-04-11 11:01:00 Keke Mckeon [facility] BLOOD GAS, ARTERIAL 2021-04-11 09:32:00 Keke Mckeon [facility] SARS-COV2/INFLUENZA/RSV 2021-04-11 08:26:00 Екатерина [facility] RT-PCR Center D-DIMER 2021-04-11 04:26:00 Екатерина analy [facility] XR CHEST 2 VIEWS 2021-04-11 03:49:00 Екатерина analy [facility] B-TYPE NATRIURETIC FACTOR 2021-04-11 03:32:00 Stephanie iDxon [facility] (BNP) Center CBC W/PLT COUNT & AUTO 2021-04-11 03:32:00 Stephanie Dixon [facility] DIFFERENTIAL [place] BASIC METABOLIC PANEL (7) 2021-04-11 03:32:[address] [facility] HIGH SENSITIVITY TROPONIN 2021-04-11 03:32:00 Stephanie Dixon [facility] I Center CBC W/PLT COUNT & AUTO 2021-04-11 03:32:00 Stephanie Dixon [facility] DIFFERENTIAL Center ECG 12-LEAD 2021-04-11 03:18:26 Dixon [facility] ECG 12-LEAD 2021-04-11 03:18:26 Unknown, Hl7 [facility] REPORT OF PROCEDURE - 2021-04-11 00:00:00 Provider, Kymberly [facility] ENDOSCOPY SCAN Scanning Center ASSIGNMENT OF BENEFITS 2020-08-30 15:44:02 Doctor Unassigned, [facility] [place] [facility] BASIC METABOLIC PANEL 2020-08-22 20:40:00 Venita Dejesus [facility] (NA, K, CL, CO2, GLUCOSE, Medica l Branch BUN, CREATININE, CA) ASSIGNMENT OF BENEFITS 2020-08-20 15:53:22 Doctor Unassigned, [facility] [place] [facility] CONSENT/REFUSAL FOR 2020-05-08 16:05:11 Doctor Unassalda, [facility] DIAGNOSIS AND TREATMENT [place] [facility] ASSIGNMENT OF BENEFITS 2020-05-08 16:04:49 Doctor Unassigned, [facility] [place] [facility] POTASSIUM SERUM 2020-04-25 12:38:00 Jose Marks [facility] [place] POCT GLUCOSE(AGE >30DAYS) 2020-04-25 12:32:00 Jose Marks [facility] [place] DAY SURGERY - ADC 2020-04-25 05:01:00 Doctor Min [facility] [place] [facility] CONSENT/REFUSAL FOR 2020-04-18 21:46:39 Doctor Unassalda, [facility] DIAGNOSIS AND TREATMENT [place] [facility] ASSIGNMENT OF BENEFITS 2020-04-18 21:44:48 Doctor Unassalda, [facility] [place] [facility] PHYSICIAN ORDERS 2020-04-18 05:01:00 Doctor Min [facility] [place] [facility] Plan of Care Planned Activity Planned Date Details Comments Source Future Scheduled 2023-11-[address] [facility] Test 00:00:00 Counseling and Medical Cente r Screening (12+) [code = Tobacco Cessation Counseling and Screening (12+)] Future Scheduled 2023-09-[address] [facility] Test 00:00:00 0-64 YRS (2 of 2 - Medical C enter PPSV23) [code = PNEUMOCOCCAL VACCINE 0-64 YRS (2 of 2 - PPSV23)] Future Scheduled 2023-06-05 Screening for [facility] Test 10:36:59 malignant neoplasm of colon (procedure) [code = 103831965] Future Scheduled 2023-06-05 Screening for [facility] Test 10:36:59 malignant neoplasm of colon (procedure) [code = 585905072] Future Scheduled 2023-06-05 65+ PNEUMOCOCCAL Methodi [facility] Test 10:36:59 VACCINE (3 - PCV) [code = 65+ PNEUMOCOCCAL VACCINE (3 - PCV)] Future Scheduled 2023-06-05 SHINGLES VACCINES (2 Met [facility] Test 10:36:59 of 3) [code = SHINGLES VACCINES (2 of 3)] Future Scheduled 2023-06-05 COVID-19 VACCINE (4 - [facility] Test 10:36:59 Moderna series) [code = COVID-19 VACCINE (4 - Moderna series)] Future Scheduled 2023-06-05 INFLUENZA VACCINE [facility] 10:36:59 [code = INFLUENZA VACCINE] Future Scheduled 2023-06-05 Screening for [facility] Test 10:36:59 malignant neoplasm of colon (procedure) [code = 655002742] Future Scheduled 2023-06-05 Screening for [facility] Test 10:36:59 malignant neoplasm of colon (procedure) [code = 808850993] Future Scheduled 2023-06-05 Screening for [facility] Test 10:36:59 malignant neoplasm of colon (procedure) [code = 056569779] Future Scheduled 2023-06-05 Hepatitis C screening [facility] Test 10:36:59 (procedure) [code = 713839327] Future Scheduled 2023-06-05 Screening for [facility] Test 10:36:59 malignant neoplasm of cervix (procedure) [code = 098137701] Future Scheduled 2023-06-05 BREAST CANCER [facility] Test 10:36:59 SCREENING [code = BREAST CANCER SCREENING] Future Scheduled 2023-04-[address] [facility] 00:[facility]:00 (procedure) [code = [facility] [id number]] Future Scheduled 2023-04-[address] [facility] Test 00:00:00 (procedure) [code = [facility] [id number]] Future Scheduled 2022-11-[address] [facility] Test 00:00:00 (12+) [code = [facility] DEPRESSION SCREENING (12+)] Future Scheduled 2021-12-02 COVID-19 VACCINE (4 - [facility]:00 Booster for [facility] series) [code = COVID-19 VACCINE (4 - Booster for Moderna series)] Future Scheduled 2021-11-20 Hepatitis C screening [facility] Test 13:15:23 (procedure) [code = 492006227] Future Scheduled 2021-11-20 Screening for [facility] Test 13:15:23 malignant neoplasm of cervix (procedure) [code = 958943458] Future Scheduled 2021-11-20 BREAST CANCER [facility] Test 13:15:23 SCREENING [code = BREAST CANCER SCREENING] Future Scheduled 2021-11-20 COLONOSCOPY SCREENING [facility] Test 13:15:23 [code = COLONOSCOPY SCREENING] Future Scheduled 2021-11-20 SHINGLES VACCINES (#2) [facility] Test 13:15:23 [code = SHINGLES VACCINES (#2)] Future Scheduled 2021-11-20 INFLUENZA VACCINE [facility] 13:15:23 [code = INFLUENZA VACCINE] Future Scheduled 2021-11-20 COVID-19 VACCINE (3 - [facility] Test 13:15:23 Booster for Moderna series) [code = COVID-19 VACCINE (3 - Booster for Moderna series)] Future Scheduled 2021-11-20 Hepatitis C screening [facility] Test 13:15:23 (procedure) [code = 685463127] Future Scheduled 2021-11-20 Screening for [facility] Test 13:15:23 malignant neoplasm of cervix (procedure) [code = 450971094] Future Scheduled 2021-11-20 BREAST CANCER [facility] Test 13:15:23 SCREENING [code = BREAST CANCER SCREENING] Future Scheduled 2021-11-20 COLONOSCOPY SCREENING [facility] Test 13:15:23 [code = COLONOSCOPY SCREENING] Future Scheduled 2021-11-20 SHINGLES VACCINES (#2) [facility] Test 13:15:23 [code = SHINGLES VACCINES (#2)] Future Scheduled 2021-11-20 INFLUENZA VACCINE [facility] Test 13:15:23 [code = INFLUENZA VACCINE] Future Scheduled 2021-11-20 COVID-19 VACCINE (3 - Me [facility] Test 13:15:23 Booster for Moderna series) [code = COVID-19 VACCINE (3 - Booster for Moderna series)] Future Scheduled 2021-07-30 INFLUENZA VACCINE (#1) [facility]00 [code = INFLUENZA Medical Ce nter VACCINE (#1)] Future Scheduled 2021-05-[address] [facility] Center (procedure) [code = 44551412] Future Scheduled 2021-02-[address] [facility] 00[facility]00 measurement Medical Center (procedure) [code = 63181735] Future Scheduled 2020-12-10 SHINGLES VACCINES ([address] [facility] Test 00:00:00 of 3) [code = SHINGLES Medic al Center VACCINES (3 of 3)] Future Scheduled 2020-12-10 SHINGLES VACCINES ([address] [facility] Test 00:00:00 of 3) [code = SHINGLES Medic al Center VACCINES (3 of 3)] Future Scheduled 2019-09-[address] [facility] Test 00:00:00 0-64 YRS (2 - PCV) Medical C enter [code = PNEUMOCOCCAL VACCINE 0-64 YRS (2 - PCV)] Future Scheduled 2013-02-[address] [facility] 00:00:00 WELLNESS (YEAR 2 or Medical Center FIRST YEAR if no IPPE) [code = MEDICARE ANNUAL WELLNESS (YEAR 2 or FIRST YEAR if no IPPE)] Future Scheduled 2013-02-[address] [facility] [facility] 00:00:00 WELLNESS (YEAR 2 or Medical Center FIRST YEAR if no IPPE) [code = MEDICARE ANNUAL WELLNESS (YEAR 2 or FIRST YEAR if no IPPE)] Future Scheduled [address] [facility] 00:[facility]00 [facility] (procedure) [code = 896270454] Future Scheduled [address] [facility] Test 00:00:00 malignant neoplasm of [facility] (procedure) [code = 314903067] Future Scheduled 1977 DTAP/TDAP/TD [facility]ACCINES [facility] 00:[facility]00 (1 - Tdap) [code = Medical C enter DTAP/TDAP/TD VACCINES (1 - Tdap)] Future Scheduled 1977 DTAP/TDAP/TD VACCINES [facility] 00:00:00 (1 - Tdap) [code = Medical C enter DTAP/TDAP/TD VACCINES (1 - Tdap)] Future Scheduled 1976 HEPATITIS C [facility]CRE[facility]ING [facility] 00:00[facility]00 [code = HEPATITIS C Medical Center SCREENING] Future Scheduled 1976 HEPATITIS C [facility] 00:00:00 [code = HEPATITIS C Medical Center SCREENING] Future Scheduled [address] DIABETIC EYE EXAM [facility] 00:00:00 [code = DIABETIC EYE Medical Center EXAM] Future Scheduled [address] [facility] examination Medical Center (regime/therapy) [code = 795247078] Future Scheduled 1968 Urine screening for [facility] 00:00:00 protein (procedure) [facility] Center [code = 539857469] Future Scheduled [address] DIABETIC EYE EXAM [facility] 00:00:00 [code = DIABETIC EYE Medical Center EXAM] Future Scheduled [address] [facility] 00[facility]:00 examination Medical Center (regime/therapy) [code = 096547355] Future Scheduled 1968 Urine screening for [facility] 00:00:00 protein (procedure) [facility] Center [code = 005060976] Future Scheduled [address] [facility] 00:[facility]:00 malignant neoplasm of [facility] breast (procedure) [code = 377133229] Future Scheduled [address] [facility] 00:00:00 malignant neoplasm of [facility] colon (procedure) [code = 880852017] Future Scheduled [address] [facility] 00:00:00 malignant neoplasm of [facility] breast (procedure) [code = 034838179] Future Scheduled [address] [facility] 00:00:00 (combo) [code = CT Medical C enter Colonography (combo)] Future Scheduled [address] [facility] 00:00:00 malignant neoplasm of [facility] colon (procedure) [code = 977436017] Future Scheduled [address] [facility] 00:00:00 malignant neoplasm of [facility] colon (procedure) [code = 400394441] Future Scheduled [address] [facility] 00:00:00 [facility] colon (procedure) [code = 827310652] Future Scheduled [address] [facility] 00:00:00 malignant neoplasm of [facility] colon (procedure) [code = 960684032] Future Scheduled 1958 Sigmoidoscopy [code = [facility] Sigmoidoscopy] Medical Cente r Encounters Start End Encounter Admission Attending Care Care Encounter Source Date/Time Date/Time Type Type Clinicians Facility Department ID 2021-09-29 Emergency [facility] [id number] Univers 05:48:34 [facility] 2021-09-26 Outpatient Deonte MARES [facility] YENNIFER [id number] Univers 00:01:23 [facility] 2021-09-25 Outpatient Deonte MARES [facility] YENNIFER [id number] Univers 21:30:16 [facility] 2023-06-11 2023-06-11 [facility] [id number] [facility] 10:39:25 10:39:25 S[facility] 2023-06-04 2023-06-04 Orders Younis, 1.2.840.1 [id number] Methodi 00:00:00 00:00:00 Only Moustapha Mckenzie 80371.1.[address] 3.430.2.7 Hospit a .3.573983 l .8 2023-05-27 2023-05-27 Office Younis, 1.2.840.1 [id number] 2099 [id number] Methodi 10:30:00 11:45:52 Visit Moustapha Mckenzie 02764.1.[address] 3.430.2.7 Hospit a .3.699359 l .8 2023-05-27 2023-05-27 Travel 1.2.840.1 1.2.147.977 9072 [id number] Methodi 00:00:00 00:00:[address] 3.430.2.7 0.2.7.3.698 Ho spita .3.821091 084.8 l .8 2023-05-27 2023-05-27 Outpatient YOUNIS, [facility] [id number] 00:00:00 00:00:00 MOUSTAPHA [address] 2023-05-27 2023-05-27 Outpatient [facility] [id number] 00:00:00 00:00:[address] 2023-05-10 2023-05-10 Travel 1.2.840.1 1.2.733.217 2592 [id number] Methodi 00:00:00 00:00:[address] 3.430.2.7 0.2.7.3.698 Ho spita .3.136226 084.8 l .8 2023-04-27 2023-04-27 [facility] MEAGHAN Dejesus 1.2.840.114 [id number] [facility] 16:36:00 23:59:00 Encounter Venita Clancy 350.1.13.10 ity [facility] 4.2.7.2.686 Elder as [phone] [address] 2023-04-27 2023-04-27 [facility] [id number] [facility] 00:00:00 23:59:00 VENITA turk [facility] 2023-04-02 2023-04-02 Outpatient MEEK [facility] Surgery [id number] SLE 05:14:00 15:12:00 MAURA WILDE 2023-03-12 2023-03-30 Inpatient ER JEANE GODOY [facility] Emergency [id number] SLE 12:21:00 14:49:00 2023-03-12 2023-03-12 Outpatient EL SHERI [facility] [id number] SLE 11:03:00 11:03:00 SINCERE 2023-03-09 2023-03-09 Emergency ER CLAIRE [facility] Emergency [id number] SLE 10:21:00 14:36:00 KAT 2023-03-01 2023-03-01 Office Sheri [facility] [id number] [facility] 11:15:00 11:30:00 Visit [facility] 2023-03-01 2023-03-01 Outpatient PIA WADE, [facility] SLE [id number] SLE 10:42:56 10:42:56 [facility] 2023-02-20 2023-02-20 Refill Karimerita, [facility] [id number] [id number] 00:00[facility]00 00:00:00 [facility] 2023-01-23 2023-01-23 Refill Karimerita, [facility] [id number] [id number] 00:00:00 00:00:00 [facility] 2023-01-22 2023-01-22 Refill Kristofer, [facility] [id number] 00:00:00 00:00:00 [facility] 2023-01-04 2023-01-04 Refill Sheri, [facility] [id number] 00:00:00 00:00:00 [facility] 2022-12-21 2022-12-21 Refill Sheri, [facility] [id number] [id number] 00:00:00 00:00:00 [facility] 2022-11-13 2022-11-16 Hospital ER Steffanie Puente [facility] [id number] 12:02:00 13:27:00 Encounter Shawn [facility] 2022-11-13 2022-11-16 [facility] [id number] SLE 12:02:00 13:27:00 [facility] 2022-11-14 2022-11-14 Travel [facility] [id number] [facility] 00:00:00 00:00:00 [facility] 2022-11-13 2022-11-13 Office Sheri, [facility] [id number] 11:00:00 11:15:00 Visit [facility] 2022-11-13 2022-11-13 Outpatient MOE JO SLE [id number] [id number] SLE 10:52:54 10:52:54 [facility] 2022-11-13 2022-11-13 Orders [facility] [id number] 00:00:00 00:00:00 Only [facility] 2022-11-13 2022-11-13 Travel [facility] [id number] [facility] 00:00:00 00:00:00 [facility] 2022-11-06 2022-11-06 Outpatient PIA WADE [facility] SLE 2052 [id number] SLE 00:00:00 00:00:00 [facility] 2022-10-21 2022-10-21 [facility] [id number] [facility] [address] 00:00:00 00:00:00 [facility] 2022-10-20 2022-10-20 Refbrianda Davis 1.2.840.1 [id number] 2100 [id number] Methodi 00:00:00 00:00:[address] 3.430.2.7 Hospit a .3.374198 l .8 2022-10-20 2022-10-20 Refill Kristofer [facility] [id number] [facility] St [facility]:00[facility] 2022-10-19 Office Sheri [facility] [id number] [id number] 10:30:00 10:45:00 Visit [facility] 2022-10-19 2022-10-19 Outpatient MOE JO SLE 2052 [id number] SLE 10:33:52 10:33:52 [facility] 2022-10-19 2022-10-19 Outpatient MOE JO SLE 2052 [id number] SLE 00:00:00 00:00:00 [facility] 2022-10-14 2022-10-14 Office Portia Espinosa2.840.1 [id number] 2100 [id number] Methodi 09:10:00 09:51:45 Visit Moustapha Mckenzie 29001.1.[address] 3.430.2.7 Hospit a .3.581351 l .8 2022-10-14 2022-10-14 Travel 1.2.840.1 1.2.732.992 7528 [id number] Methodi 00:00:00 00:00:[address] 3.430.2.7 0.2.7.3.698 Ho spita .3.178663 084.8 l .8 2022-10-14 2022-10-14 Outpatient YOUNIS, [facility] [id number] 00:00:00 00:00:00 MOUSTAPHA [facility] 2022-10-08 2022-10-08 Orders Younis, 1.2.840.1 [id number] 2099 [id number] Methodi 00:00:00 00:00:00 Only Moustapha Mckenzie 59201.1.[address] 3.430.2.7 Hospit a .3.624503 l .8 2022-10-08 2022-10-08 Refill Sheri, [facility] [id number] CHI 00:00:00 00:00:00 [facility] 2022-10-07 2022-10-07 Office Younis, 1.2.840.1 [id number] 2099 [id number] Methodi 11:10:00 12:11:21 Visit Moustapha Mckenzie 32046.1.[address] 3.430.2.7 Hospit a .3.412830 l .8 2022-10-07 2022-10-07 Travel 1.2.840.1 1.2.665.550 5429 [id number] Methodi 00:00:00 00:00:[address] 3.430.2.7 0.2.7.3.698 Ho spita .3.798306 084.8 l .8 2022-10-07 2022-10-07 Outpatient [facility] [id number] 00:00:00 00:00:[address] 2022-10-07 2022-10-07 Outpatient YOUNIS, [facility] [id number] 00:00:00 00:00:00 MOUSTAPHA [address] 2022-09-11 2022-09-11 Office Younis, 1.2.840.1 [id number] 2099 [id number] Methodi 14:50:00 16:06:05 Visit Moustapha MaiShmuel 85446.1.[address] 3.430.2.7 Hospit a .3.429787 l .8 2022-09-11 2022-09-11 Travel 1.2.840.1 1.2.971.418 7024 [id number] Methodi 00:00:00 00:00:[address] 3.430.2.7 0.2.7.3.698 Ho spita .3.074192 084.8 l .8 2022-09-11 2022-09-[address] [facility], [facility] [id number] 00:00:00 00:00:00 MOUSTAP[address] L[address] [facility] 2022-09-07 2022-09-07 Travel 1.2.840.1 1.2.847.187 8823 [id number] Methodi 00:00:00 00:00:[address] 3.430.2.7 0.2.7.3.698 Ho spita .3.718477 084.8 l .8 2022-08-19 2022-08-19 Travel 1.2.840.1 1.2.873.866 7312 170126 Methodi 00:00:00 00:00:[address] 3.430.2.7 0.2.7.3.698 Ho spita .3.620885 084.8 l .8 2022-08-16 2022-08-16 [facility] [id number] [id number] [facility] [address] 00:00:00 00:00:00 [facility] 2022-07-21 2022-07-21 RefIveth Adamson 1.2.840.1 [id number] [facility] 00:00:00 00:00:[address] [facility] st 3.430.2.7 Hospit a .3.607000 l .8 2022-07-21 2022-07-21 Refill Sheri, [facility] [id number] 00:00:00 00:00:00 [facility] 2022-07-20 2022-07-20 Refill Sheri, [facility] [id number] 00:00:00 00:00:00 [facility] 2022-07-17 2022-07-17 Refill Sheri, [facility] [id number] 00:00:00 00:00:00 [facility] 2022-07-14 2022-07-14 Refill Sheri, [facility] [id number] 00:00:00 00:00:00 [facility] 2022-06-16 2022-06-16 Refill Sheri, [facility] [id number] [id number] 00:00:00 00:00:00 [facility] 2022-05-20 2022-05-20 Refill Kristofer, [facility] [id number] 00:00:00 00:00:00 [facility] 2022-05-19 2022-05-19 Refill Sheri, [facility] [id number] [id number] 00:00:00 00:00:00 [facility] 2022-04-24 2022-04-24 Orders Miner, [facility] [id number] 00:00:00 00:00:00 Only [facility] 2022-04-17 2022-04-17 Refill Kristofer, [facility] [id number] 00:00:00 00:00:00 [facility] 2022-04-17 2022-04-17 Refill Kristofer, [facility] [id number] 00:00[facility]00 00:00[facility]00 [facility] 2022-04-16 2022-04-16 Refill Sheri, [facility] [id number] 00:00:00 00:00:00 [facility] 2022-04-09 2022-04-09 Telephone Sheri, [facility] [id number] 00:00:00 00:00:00 [facility] 2022-04-03 2022-04-03 [facility] [id number] 11:36:27 23:59:00 [facility] 2022-04-03 2022-04-03 Outpatient [facility] [id number] SLE 11:36:27 23:59:00 2022-04-03 2022-04-03 Office PIA Wade, [facility] [id number] 10:30:00 10:45:00 Visit [facility] 2022-04-03 2022-04-03 Outpatient PIA WADE [facility] [id number] SLE 10:29:07 10:29:07 [facility] 2022-04-03 2022-04-03 Orders Sanchez, [facility] [id number] 00:00:00 00:00:00 Only [facility] 2022-04-01 2022-04-01 Refill Sheri, [facility] [id number] [id number] 00:00:00 00:00:00 [facility] 2021-12-25 2021-12-25 Refill Sheri, [facility] [id number] 00:00:00 00:00:00 [facility] 2021-12-18 2021-12-18 Refill Ivanmagdalena, [facility] [id number] [id number] 00:00:00 00:00:00 [facility] 2021-10-14 2021-10-14 Uyen Wade [facility] [id number] 00:00:00 00:00:00 [facility] 2021-10-07 2021-10-07 Outpatient R RAYMUNDO, [facility] [id number] Univers 11:10:00 10:46:20 PRITESH turk [facility] 2021-10-07 2021-10-07 Imm/Inj Nurse, Adc Pob Immunization [facility] 1.2.840.114 [id number] Univers 10:46:10 10:46:20 Visit [facility]ritesh [facility].13 .[facility] 4.2.7.2.686 Elderpau burgos RILEY [phone] [address] 2021-09-29 2021-09-29 Refbrianda Miner [facility] [id number] [facility] 2021-09-28 2021-09-28 Refbrianda Wade, [facility] [id number] 00:00:00 00:00:00 [facility] 2021-07-17 2021-07-17 Uyen Wade, [facility] [id number] [id number] 00:00:00 00:00:00 [facility] 2021-07-15 2021-07-15 Refbrianda Wade, [facility] [id number] [id number] 00:00:00 00:00:00 [facility] 2021-07-09 2021-07-09 Uyen Wade, [facility] [id number] [id number] 00:00:00 00:00:00 [facility] 2021-06-21 2021-06-21 Uyen Wade [facility] [id number] [id number] 00:00:00 00:00:00 [facility] 2021-05-31 2021-06-01 Emergency [facility], [facility] 1.2.207.973 [id number] Univers 23:44:00 03:11:00 Aneta Meza 350.1.13.10 itEdgard 4.2.7.2.686 [facility] [phone] [facility] [address] 2021-05-20 2021-05-20 Travel 1.2.840.1 1.2.887.977 7866 [id number] Methodi 00:00:00 00:00:[address] 3.430.2.7 0.2.7.3.698 Ho spita .3.848080 084.8 l .8 2021-04-29 2021-04-29 [facility], [facility] [id number] 00:00:00 00:00:00 [facility] 2021-04-11 2021-04-15 [facility] [id number] 03:10:00 17:48:00 [facility] 2021-04-11 2021-04-11 Emergency ER [facility] Emergency [id number] [facility] 03:01:00 03:01:00 2021-04-11 2021-04-11 Outpatient [place] 9 [id number] [facility] 00:00:00 00:00:00 [facility] 2021-04-11 2021-04-11 Orders [facility] [id number] 00:00:00 00:00:00 Only [facility] 2021-04-11 2021-04-11 Travel [facility] [id number] [facility] 00:00:00 00:00:00 [facility] 2021-04-09 2021-04-09 Travel 1.2.840.1 1.2.199.115 [id number] Methodi 00:00:00 00:00:[address] 3.430.2.7 0.2.7.3.698 Ho spita .3.812447 084.8 l .8 2021-04-09 2021-04-09 Outpatient JESÚS, [facility] [id number] 00:00:00 00:00:00 GUSTAVO [address] 2021-04-03 2021-04-03 [facility] [id number] [id number] 00:00:00 00:00:00 [facility] 2021-04-02 2021-04-02 Office Elier, 1.2.840.1 [id number] Methodi 08:58:59 11:24:09 Visit Gavin Kay 53916.1.[address] 3.430.2.7 Hospit a .3.478335 l .8 2021-04-02 2021-04-02 Travel 1.2.840.1 1.2.464.550 6209 [id number] Methodi 00:00:00 00:00:[address] 3.430.2.7 0.2.7.3.698 Ho spita .3.071032 084.8 l .8 2021-03-28 2021-03-28 Office Sheri [facility] [id number] 12:00:47 12:15:47 Visit [facility] 2021-03-28 2021-03-28 [id number] [facility] 00:00:00 00:00:00 SINCERE 2021-03-27 2021-03-27 [facility] [id number] [id number] 00:00:00 00:00:00 [facility] 2021-03-12 2021-03-12 [facility] [id number] [id number] 00:00:00 00:00:00 [facility] 2021-03-04 2021-03-04 Uyen Wade [facility] [id number] [id number] 00:00:00 00:00:00 [facility] 2021-01-31 2021-01-31 Uyen Wade [facility] [id number] [id number] 00:00:00 00:00:00 [facility] 2021-01-28 2021-01-28 Outpatient Deonte TAVARES [facility] [id number] Univers 10:10:00 10:10:00 [facility] 2020-12-31 2020-12-31 [facility] [id number] Univers 10:10:00 10:10:00 [facility] 2020-12-18 2020-12-18 Outpatient PIA LEÓNSTORMY, [facility] [id number] [facility] 00:00:00 00:00:00 [facility] 2020-12-11 2020-12-11 Letter Pcp, [facility] 1.2.840.114 [id number] 00:00:00 00:00:00 (Out) Patient Health 350.1.13.10 Does Not [place] 4.2.7.2.686 Have A Professio [phone] [place] [address] [address] 2020-12-11 2020-12-11 Letter Pcp, [facility] 1.2.840.114 [id number] Univers 00:00:00 00:00:00 (Out) Patient Health 350.1.13.10 it y of Does Not [place] 4[place]2.7.2.686 [place] Have A Professio [phone] [place] dical [address] Office [address] [facility] 2020-12-09 2020-12-09 Telephone Cam, [facility] 1.2.904.601 [id number] 00:00:00 00:00:00 Martita A Health 350.1.13.10 [place] 4.2.7.2.686 Professio [phone] [place] [address] [address] 2020-12-09 2020-12-09 Telephone Cam, [facility] 1.2.554.654 [id number] Univers 00:00:00 00:00:00 Martita Mai Health 350.1.13.10 i ty of [place] 4.2.7.2.686 Elder as Professio [phone] [address] Office [facility] One 2020-12-04 2020-12-04 Laboratory Lab, [facility] 1.2.840.114 [id number] 09:55:41 10:15:41 Only Fam Pob I Health 350.1.13.10 [place] 4.2.7.2.686 Professio [phone] [place] [address] Office [facility] One 2020-12-04 2020-12-04 Laboratory Lab, [facility] Fam Pob I [facility] 1.2. 840.[id number] [facility] 09:55:41 10:15:41 Only Martita [facility] 350.1.13.10 ity of [place] 4.2.7.2.686 Elder as Professio [phone] [address] One 2020-12-04 2020-12-04 Outpatient R [facility] [id number] Univers 10:00:00 10:00:00 [facility] 2020-11-15 2020-11-15 Outpatient PIA WADE [facility] [id number] [facility] 00:00:00 00:00:00 SINCERE 2020-08-30 2020-08-30 Outpatient R ANJELICA [facility] [id number] Univers 11:15:00 11:15:00 VENITA [facility] 2020-08-30 2020-08-30 Boiler Tube Reamer Roddy, [facility] 1.2.840.114 [id number] 10:48:02 11:03:02 Visit Lab Main [place] 350.1.13.10 [place] 4.2.7.2.686 Professio [phone] [address] 2020-08-30 2020-08-30 Boiler Tube Reamer Roddy, [facility] Lab Main [facility] 1.2.8 40.[id number] [facility] 10:48:02 11:03:02 Visit Venita Dejesus 350.1.13.10 ity of [place] 4.2.7.2.686 [place] Professio [phone] Ok dic[address] 2020-08-30 2020-08-30 Orders Doctor LAYLA 1.2.840.114 [id number] 00:00:00 00:00:00 Only Unassigned, ALEYDA 350.1.13.10 [facility] 4.2.7.2.686 [phone] [facility] 2020-08-30 2020-08-30 Orders Doctor LAYLA 1.2.840.114 [id number] Univers 00:00:00 00:00:00 Only Unassigned, ALEYDA 350.1.13.10 ity of [place] [facility] 4.2.7.2.686 Elder as [phone] [address] 2020-08-27 2020-08-27 Outpatient Deonte DEJESUS, [facility] [id number] [facility] 14:15:00 14:15:00 VENITA turk [facility] 2020-08-27 2020-08-27 Boiler Tube Reamer Roddy, [facility] 1.2.840.114 [id number] 13:39:21 13:54:21 Visit Lab Main Derrick [id number] [place] [id number] Professio [phone] [address] 2020-08-27 2020-08-27 Boiler Tube Reamer Roddy, Adc Lab Main [facility] 1.2.8 40.114 [id number] [facility] 13:39:21 13:54:21 Visit Venita Dejesus 350.1.13.10 [facility] [place] 4.2.7.2.686 [place] [phone] [place] [address] 2020-08-22 2020-08-22 Boiler Tube Reamer Roddy, Adc [facility] 1.2.840.114 [id number] 15:26:34 15:41:34 Visit Lab Main [place] [id number] [place] 4.2.7.2.686 Professio [phone] [address] 2020-08-22 2020-08-22 Boiler Tube Reamer Roddy, Adc Lab Main [facility] 1.2.8 40.114 [id number] Univers 15:26:34 15:41:34 Visit Anjelica Venita Meza 350.1.13.10 [facility] [place] 4.2.7.2.686 [place] [phone] [address] 2020-08-22 2020-08-22 [facility] [id number] [facility] 15:30:00 15:30:00 VENITA turk [facility] 2020-08-20 2020-08-20 Boiler Tube Reamer Roddy, [facility] 1.2.840.114 [id number] 10:58:50 11:13:50 Visit Lab Main [place] [id number] [place] 4.2.7.2.686 Professio [phone] [address] 2020-08-20 2020-08-20 Boiler Tube Reamer Roddy, [facility] Lab Main [facility] 1.2.8 40.[id number] [facility] 10:58:50 11:13:50 Visit Alecashwinalyse Venita Meza [id number] [facility] [place] 4.2.7.2.686 [place] [phone] [address] 2020-08-20 2020-08-20 [facility] [id number] [facility] 11:00:00 11:00:00 VENITA turk [facility] 2020-08-20 2020-08-20 Orders Doctor RICH 1.2.840.114 [id number] 00:00:00 00:00:00 Only UnassignedALEYDA 350.1.13.10 [place] [facility] 4.2.7.2.686 [id number] [facility] 2020-08-20 2020-08-20 Orders Doctor RICH 1.2.840.[id number] [facility] 00:00:00 00:00:00 Only UnassignedALEYDA 350.1.13.10 ity of [place] [facility] 4.2.7.2.686 Elder as [id number] [address] 2020-07-29 2020-07-29 Outpatient SHERI [facility] [id number] [facility] 00:00:00 00:00:00 [place] 2020-07-29 2020-07-29 Outpatient PIA WADE, [facility] [id number] [facility] 00:00:00 00:00:00 [place] 2020-07-15 2020-07-15 Emergency ER [facility] Emergency [id number] [facility] 14:40:00 14:40:00 2020-05-09 2020-05-09 [facility] 1.2.840.114 [id number] 07:32:53 09:40:00 Encounter Venita Meza 350.1.13.10 [place] 4.2.7.2.686 Surgical [id number] [place] [address] 2020-05-09 2020-05-09 [facility] 1.2.840.114 [id number] [facility] 07:32:53 09:40:00 Encounter Venita Meza 350.1.13.10 ity of [place] 4.2.7.2.686 [place] [id number] [address] 2020-05-08 2020-05-08 Laboratory Only, [facility] 1.2.840.114 [id number] 11:03:41 11:18:41 Only Test Derrick 350.1.13.10 [place] 4.2.7.2.686 [place] [id number] [facility] 2020-05-08 2020-05-08 Laboratory Only, [facility] Test [facility] 1.2.840. [id number] [facility] 11:03:41 11:18:41 Only Venita Mares 350.1.1 3.10 ity joshua [place] 4.2.7.2.686 [place] [id number] [address] 2020-05-08 2020-05-08 Outpatient R [facility] [id number] [facility] 10:15:00 10:15:00 VENITA turk of [facility] 2020-04-25 2020-04-25 [facility] 1.2.840.114 [id number] 07:13:00 09:44:00 Encounter Venita Meza 350.1.13.10 [place] 4.2.7.2.686 Surgical [id number] [place] [address] 2020-04-25 2020-04-25 [facility] 1.2.840.114 [id number] Univers 07:13:00 09:44:00 Encounter Venita Meza 350.1.13.10 [place]y [place] 4[place]2.7.2.686 [place] [id number] [address] 2020-04-25 2020-04-25 Orders Doctor LAYLA 1.2.840.114 [id number] 00:00:00 00:00:00 Only Unassigned, ALEYDA 350.1.13.10 [place] [facility] 4.2.7.2.686 [id number] [facility] 2020-04-25 2020-04-25 Orders Doctor LAYLA 1.2.840.114 [id number] Univers 00:00:00 00:00:00 Only Unassigned, ALEYDA 350.1.13.10 ity of [place] [facility] 4.2.7.2.686 Elder as [id number] [address] 2020-04-24 2020-04-24 Laboratory Only, [facility] 1.2.840.114 7 [id number] 15:22:54 15:37:54 Only Test Derrick 350.1.13.10 René 4.2.7.2.686 Professio [id number] [address] 2020-04-24 2020-04-24 Laboratory Only, [facility] Test [facility] 1.2.840. 114 [id number] Univers 15:22:54 15:37:54 Only Suzan, Venita Meza 350.1.1 3.10 ity of [place] 4.2.7.2.686 [place] Profess[place] [id number] Ok dical [address] 2020-04-24 2020-04-24 Outpatient R [facility] [id number] Univers 15:30:00 15:30:00 ity of [facility] 2020-04-18 2020-04-18 Boiler Tube Reamer Josh Pereyra [facility] 1.2.840.114 [id number] 16:47:22 17:02:22 Visit Lab Main Derrick 350.1.13.10 René 4.2.7.2.686 Professio [id number] [address] 2020-04-18 2020-04-18 Boiler Tube Reamer Pob, Adc Lab Main [facility] 1.2.8 40.114 [id number] Univers 16:47:22 17:02:22 Visit Venita Mares 350.1.1 3.10 burke [facility] 4.2.7.2.686 Edwar Currie [id number] Ok dic[address] 2020-04-18 2020-04-18 Outpatient Deonte SUZAN [facility] [id number] Univers 17:00:00 17:00:00 VENITA itoumou [facility] 2020-04-08 2020-04-08 Outpatient [facility] [id number] 4-2 [facility] 00:00:00 00:00:00 [id number] 2020-04-08 2020-04-08 Outpatient PIA WADE, [facility] 2034 [id number] SLE 00:00:00 00:00:00 SINCERE 2020-04-08 2020-04-08 Outpatient EL [facility] [id number] SLE 00:00:00 00:00:00 Results Test Description Test Time Test Comments Results Result Comments Source POCT-ACT 2023-04-02 11:48:30 Test Item Value Reference Range Interpretation Comme nts ACTIVATED CLOTTING TIME ([facility] 161 sec : 74-137 seconds, Baseline: TESTED AT (test code = 441) [place] [id number]: Molasses Preparer/Techni kate ID = [id number] for Lexie Patrick POCT-GLUCOSE [id number] 11:11:46 Test Item Value Reference Range Interpretation Comments POC-GLUCOSE METER 165 mg/dL 70-110 H : Notified RN/MD: ([facility] (test code = TESTED AT [place] [address] 1538) [facility], [address]: Molasses Preparer/Techni kate ID = [id number] for JINA PATELMATILDADIMPLEIRINEO [id number] 10:16:09 Test Item Value Reference Range Interpretation Comments ACTIVATED CLOTTING TIME 305 sec : 74 -137 seconds, ([facility] (test code = Baseli ne: TESTED AT 441) [address], 770 30: Molasses Preparer/Techni kate ID = [id number] for CRISELDA COPELAND [id number] 09:54:59 Test Item Value Reference Range Interpretation Comments ACTIVATED CLOTTING TIME 317 sec : 74 -137 seconds, (BEAKER) (test code = Andrew ne: TESTED AT 441) [facility] [address] [place] [address], [facility] 30: Molasses Preparer/Techni kate ID = [id number] for CRISELDA COPELAND [id number] 09:54:58 Test Item Value Reference Range Interpretation Comments ACTIVATED CLOTTING TIME 287 sec : 74 -137 seconds, (BEAKER) (test code = Baseli ne: TESTED AT 441) [facility] [address] [place] [address], [facility] 30: Molasses Preparer/Techni kate ID = [id number] for CRISELDA COPELAND BASIC METABOLIC [id number] 07:12:47 Test Item Value Reference Range Interpretation Comments SODIUM (BEAKER) 134 meq/L 136-145 L (test code = 381) POTASSIUM 4.0 meq/L 3.5-5.1 Specimen slight ly (BEAKER) (test hemolyzed code = 379) CHLORIDE (BEAKER) 89 meq/L 98-107 L (test code = 382) CO2 (BEAKER) 31 meq/L 22-29 H (test code = 355) BLOOD UREA 61 mg/dL 7-21 H NITROGEN (BEAKER) (test code = 354) CREATININE 2.47 mg/dL 0.57-1.25 H Specimen slight ly (BEAKER) (test hemolyzed code = 358) GLUCOSE RANDOM 188 mg/dL 70-105 H (BEAKER) (test code = 652) CALCIUM (BEAKER) 10.3 mg/dL 8.4-10.2 H (test code = 697) EGFR (BEAKER) 21 Interpretatio n of eGFR (test code = mL/min/1.73 values Stage De scription 1092) sq m Result G1 Jade l or high >=90 G2 Mildly decreased 60-89 G3a Mildl y to moderately 45-5 9 G3b Moderately to s everely 30-44 G4 Severl y decreased 15-29 G5 Kidney failure <15Reported eGF R is based on the CKD-EPI 1 equation that d oes not use a race coefficientEsti mated GFR is not as accur ate as Creatinine Brenda gunnar in predicting glom erular filtration rate . Estimated GFR is not appl icable for dialysis patien ts Molasses Preparer ID - [id number] 07:09:36 Test Item Value Reference Range Interpretation Comments MAGNESIUM (BEAKER) 2.3 mg/dL 1.6-2.6 Specimen slightly (test code = 627) hemolyzed Molasses Preparer ID - [id number] 06:46:40 Test Item Value Reference Range Interpretation Comments PROTIME (BEAKER) (test code = 13.9 seconds 11.9-14.2 759) INR (BEAKER) (test code = 370) 1.13 <=5.90 RECOMMENDED COUMADIN/WARFARIN INR THERAPY RANGESSTANDARD DOSE: 2.0 - 3.0 Includes: PROPHYLAXIS for venous thrombosis, systemic embolization; TREATMENT for venous thrombosis and/or pulmonary embolus.HIGH RISK: Target INR is 2.5-3.5 for patients with mechanical heart valves.CBC W/PLT COUNT & AUTO [id number] 06:41:56 Test Item Value Reference Range Interpretation Comments WHITE BLOOD CELL COUNT (BEAKER) 9.0 K/ L 3.5-10.5 (test code = 775) RED BLOOD CELL COUNT (BEAKER) 4.34 M/ L 3.93-5.22 (test code = 761) HEMOGLOBIN (BEAKER) (test code = 13.5 GM/DL 11.2-15.7 410) HEMATOCRIT (BEAKER) (test code = 40.9 % 34.1-44.9 411) MEAN CORPUSCULAR VOLUME (BEAKER) 94 fL 79-95 (test code = 753) MEAN CORPUSCULAR HEMOGLOBIN 31.1 pg 25.6-32.2 (BEAKER) (test code = 751) MEAN CORPUSCULAR HEMOGLOBIN CONC 33.0 GM/DL 32.2-35.5 (BEAKER) (test code = 752) RED CELL DISTRIBUTION WIDTH 13.2 % 11.7-14.4 (BEAKER) (test code = 412) PLATELET COUNT (BEAKER) (test 267 K/CU MM 150-450 code = 756) MEAN PLATELET VOLUME (BEAKER) 11.1 fL 9.4-12.3 (test code = 754) NUCLEATED RED BLOOD CELLS 0 /100 WBC 0-0 (BEAKER) (test code = 413) NEUTROPHILS RELATIVE PERCENT 58 % (BEAKER) (test code = 429) LYMPHOCYTES RELATIVE PERCENT 28 % (BEAKER) (test code = 430) MONOCYTES RELATIVE PERCENT 10 % (BEAKER) (test code = 431) EOSINOPHILS RELATIVE PERCENT 2 % (BEAKER) (test code = 432) BASOPHILS RELATIVE PERCENT 1 % (BEAKER) (test code = 437) NEUTROPHILS ABSOLUTE COUNT 5.23 K/ L 1.56-6.13 (BEAKER) (test code = 670) LYMPHOCYTES ABSOLUTE COUNT 2.53 K/ L 1.18-3.74 (BEAKER) (test code = 414) MONOCYTES ABSOLUTE COUNT (BEAKER) 0.93 K/ L 0.24-0.36 H (test code = 415) EOSINOPHILS ABSOLUTE COUNT 0.22 K/ L 0.04-0.36 (BEAKER) (test code = 416) BASOPHILS ABSOLUTE COUNT (BEAKER) 0.07 K/ L 0.01-0.08 (test code = 417) IMMATURE GRANULOCYTES-RELATIVE 0.20 % 0.00-1.00 PERCENT (BEAKER) (test code = 2801) POCT-GLUCOSE [id number] 07:43:28 Test Item Value Reference Range Interpretation Comments POC-GLUCOSE METER 185 mg/dL 70-110 H : TESTED A T [facility] 6720 (BEAKER) (test code [facility], = 1538) [address]: Molasses Preparer/Techni kate ID = [id number] for Shameka (con tract)Janeen CALCIUM, [id number] 06:10:33 Test Item Value Reference Range Interpretation Comments CALCIUM IONIZED (BEAKER) (test 1.22 mmol/L 1.12-1.27 code = 698) PH, BLOOD (BEAKER) (test code = 7.35 1810) COMPREHENSIVE METABOLIC [id number] 04:23:46 Test Item Value Reference Range Interpretation Comments TOTAL PROTEIN 6.9 gm/dL 6.0-8.3 (BEAKER) (test code = 770) ALBUMIN (BEAKER) 3.5 g/dL 3.5-5.0 (test code = 1145) ALKALINE 96 U/L 40-150 PHOSPHATASE (BEAKER) (test code = 346) BILIRUBIN TOTAL 0.9 mg/dL 0.2-1.2 (BEAKER) (test code = 377) SODIUM (BEAKER) 132 meq/L 136-145 L (test code = 381) POTASSIUM (BEAKER) 3.9 meq/L 3.5-5.1 (test code = 379) CHLORIDE (BEAKER) 89 meq/L 98-107 L (test code = 382) CO2 (BEAKER) (test 31 meq/L 22-29 H code = 355) BLOOD UREA 55 mg/dL 7-21 H NITROGEN (BEAKER) (test code = 354) CREATININE 2.63 mg/dL 0.57-1.25 H (BEAKER) (test code = 358) GLUCOSE RANDOM 168 mg/dL 70-105 H (BEAKER) (test code = 652) CALCIUM (BEAKER) 10.5 mg/dL 8.4-10.2 H (test code = 697) AST (SGOT) 23 U/L 5-34 (BEAKER) (test code = 353) ALT (SGPT) 13 U/L 6-55 (BEAKER) (test code = 347) EGFR (BEAKER) 20 Interpretatio n of eGFR (test code = 1092) mL/min/1.[address] age Description sq m Result G1 Jade l or high >=90 G2 Mildly decreased 60-89 G3a Mildl y to moderately 45-5 9 G3b Moderately to s everely 30-44 G4 Severl y decreased 15-29 G5 Kidney failure <15Reported eGF R is based on the CKD-EPI 1 equation that d oes not use a race coefficientEsti mated GFR is not as accur ate as Creatinine Brenda maher in predicting glom erular filtration rate . Estimated GFR is not appl icable for dialysis patien ts Molasses Preparer ID Natalya BETHEA [id number] 04:22:53 Test Item Value Reference Range Interpretation Comments PHOSPHORUS (BEAKER) (test code = 4.5 mg/dL 2.3-4.7 604) Molasses Preparer ID Natalya BETHEA [id number] 04:22:52 Test Item Value Reference Range Interpretation Comments MAGNESIUM (BEAKER) (test code = 2.2 mg/dL 1.6-2.6 627) Molasses Preparer CARRIE BETHEA WCBC W/PLT COUNT & AUTO [id number] 04:01:13 Test Item Value Reference Range Interpretation Comments WHITE BLOOD CELL COUNT (BEAKER) 10.4 K/ L 3.5-10.5 (test code = 775) RED BLOOD CELL COUNT (BEAKER) 4.13 M/ L 3.93-5.22 (test code = 761) HEMOGLOBIN (BEAKER) (test code = 12.9 GM/DL 11.2-15.7 410) HEMATOCRIT (BEAKER) (test code = 39.9 % 34.1-44.9 411) MEAN CORPUSCULAR VOLUME (BEAKER) 97 fL 79-95 H (test code = 753) MEAN CORPUSCULAR HEMOGLOBIN 31.2 pg 25.6-32.2 (BEAKER) (test code = 751) MEAN CORPUSCULAR HEMOGLOBIN CONC 32.3 GM/DL 32.2-35.5 (BEAKER) (test code = 752) RED CELL DISTRIBUTION WIDTH 13.2 % 11.7-14.4 (BEAKER) (test code = 412) PLATELET COUNT (BEAKER) (test 252 K/CU MM 150-450 code = 756) MEAN PLATELET VOLUME (BEAKER) 10.8 fL 9.4-12.3 (test code = 754) NUCLEATED RED BLOOD CELLS 0 /100 WBC 0-0 (BEAKER) (test code = 413) NEUTROPHILS RELATIVE PERCENT 57 % (BEAKER) (test code = 429) LYMPHOCYTES RELATIVE PERCENT 31 % (BEAKER) (test code = 430) MONOCYTES RELATIVE PERCENT 9 % (BEAKER) (test code = 431) EOSINOPHILS RELATIVE PERCENT 3 % (BEAKER) (test code = 432) BASOPHILS RELATIVE PERCENT 1 % (BEAKER) (test code = 437) NEUTROPHILS ABSOLUTE COUNT 5.88 K/ L 1.56-6.13 (BEAKER) (test code = 670) LYMPHOCYTES ABSOLUTE COUNT 3.20 K/ L 1.18-3.74 (BEAKER) (test code = 414) MONOCYTES ABSOLUTE COUNT (BEAKER) 0.92 K/ L 0.24-0.36 H (test code = 415) EOSINOPHILS ABSOLUTE COUNT 0.28 K/ L 0.04-0.36 (BEAKER) (test code = 416) BASOPHILS ABSOLUTE COUNT (BEAKER) 0.07 K/ L 0.01-0.08 (test code = 417) IMMATURE GRANULOCYTES-RELATIVE 0.40 % 0.00-1.00 PERCENT (BEAKER) (test code = 2801) POCT-GLUCOSE [id number] 21:26:45 Test Item Value Reference Range Interpretation Comments POC-GLUCOSE METER 182 mg/dL 70-110 H : Notified RN/MD: ([facility] (test code = TESTED AT [facility] 6720 1538) [facility], [address]: Molasses Preparer/Techni kate ID = [id number] for Praneeth Lozada POCT-GLUCOSE [id number] 16:15:39 Test Item Value Reference Range Interpretation Comments POC-GLUCOSE METER 204 mg/dL 70-110 H : [facility] 6720 ([facility] (test code [facility], = 1538) [address]: Molasses Preparer/Techni kate ID = [id number] for Shameka (con tract), Janeen POCT-GLUCOSE [id number] 11:55:41 Test Item Value Reference Range Interpretation Comments POC-GLUCOSE METER 250 mg/dL 70-110 H : TESTED A T [facility] 6720 ([facility] (test code [facility], = 1538) [address]: Molasses Preparer/Techni kate ID = [id number] for Shameka (con tract), Janeen BASIC METABOLIC [id number] 08:57:34 Test Item Value Reference Range Interpretation Comments SODIUM (BEAKER) 132 meq/L 136-145 L (test code = 381) POTASSIUM 3.6 meq/L 3.5-5.1 (BEAKER) (test code = 379) CHLORIDE (BEAKER) 88 meq/L 98-107 L (test code = 382) CO2 (BEAKER) 36 meq/L 22-29 H (test code = 355) BLOOD UREA 55 mg/dL 7-21 H NITROGEN (BEAKER) (test code = 354) CREATININE 2.69 mg/dL 0.57-1.25 H (BEAKER) (test code = 358) GLUCOSE RANDOM 207 mg/dL 70-105 H (BEAKER) (test code = 652) CALCIUM (BEAKER) 10.2 mg/dL 8.4-10.2 (test code = 697) EGFR (BEAKER) 19 Interpretatio n of eGFR (test code = mL/min/1.73 values Stage De scription 1092) sq m Result G1 Jade l or high >=90 G2 Mildly decreased 60-89 G3a Mild ly to moderately 45-5 9 G3b Moderately to s everely 30-44 G4 Severl y decreased 15-29 G5 Kidney failure <15Reported eGF R is based on the CKD-EPI 2020 equation that d oes not use a race coefficientEsti mated GFR is not as accur ate as Creatinine Brenda gunnar in predicting glom erular filtration rate . Estimated GFR is not appl icable for dialysis patien ts Molasses Preparer ID - JSPOCT-GLUCOSE [id number] 07:43:39 Test Item Value Reference Range Interpretation Comments POC-GLUCOSE METER 213 mg/dL 70-110 H : TESTED A T [facility] 6720 ([place]) (test code [facility], = 1538) [address]: Molasses Preparer/Techni kate ID = [id number] for Shameka (con tract)Janeen POCT-GLUCOSE [id number] 21:32:40 Test Item Value Reference Range Interpretation Comments POC-GLUCOSE METER 169 mg/dL 70-110 H : TESTED A T [facility] 6720 ([place]) (test code = BANNERDAILY Clemons [facility], 1538) [address]: Molasses Preparer/Techni kate ID = [id number] for AVA SORENSON POCT-GLUCOSE [id number] 17:00:53 Test Item Value Reference Range Interpretation Comments POC-GLUCOSE METER 251 mg/dL 70-110 H : Notified RN/MD: (RAQUEL) (test code = TESTED AT [facility] 6720 1538) [facility], [address]: Molasses Preparer/Techni kate ID = [id number] for AN WHITLEY SILVA POCT-GLUCOSE [id number] 13:14:46 Test Item Value Reference Range Interpretation Comments POC-GLUCOSE METER 310 mg/dL 70-110 H : Notified RN/MD: ([facility] (test code = TESTED AT [facility] 6720 1538) [facility], [address]: Molasses Preparer/Techni kate ID = [id number] for AN WHITLEY SILVA BASIC METABOLIC [id number] 12:20:09 Test Item Value Reference Range Interpretation Comments [facility]UM [facility] 131 meq/L 136-145 L (test code = 381) POTASSIUM 3.4 meq/L 3.5-5.1 L Specimen slight ly (BEAKER) (test hemolyzed code = 379) CHLORIDE (BEAKER) 88 meq/L 98-107 L (test code = 382) CO2 (BEAKER) 30 meq/L 22-29 H (test code = 355) BLOOD UREA 51 mg/dL 7-21 H NITROGEN (BEAKER) (test code = 354) CREATININE 2.49 mg/dL 0.57-1.25 H Specimen slight ly (BEAKER) (test hemolyzed code = 358) GLUCOSE RANDOM 155 mg/dL 70-105 H (BEAKER) (test code = 652) CALCIUM (BEAKER) 9.8 mg/dL 8.4-10.2 (test code = 697) EGFR (BEAKER) 21 Interpretatio n of eGFR (test code = mL/min/1.73 values Stage De scription 1092) sq m Result G1 Jade l or high >=90 G2 Mildly decreased 60-89 G3a Mildl y to moderately 45-5 9 G3b Moderately to s everely 30-44 G4 Severl y decreased 15-29 G5 Kidney failure <15Reported eGF R is based on the CKD-EPI 2020 equation that d oes not use a race coefficientEsti mated GFR is not as accur ate as Creatinine Brenda maher in predicting glom erular filtration rate . Estimated GFR is not appl icable for dialysis patien ts Molasses Preparer ID - [id number] 12:18:19 Test Item Value Reference Range Interpretation Comments MAGNESIUM (BEAKER) 2.2 mg/dL 1.6-2.6 Specimen slightly (test code = 627) hemolyzed Molasses Preparer ID - EDPOCT-GLUCOSE [id number] 07:38:30 Test Item Value Reference Range Interpretation Comments POC-GLUCOSE METER 171 mg/dL 70-110 H : Notified RN/MD: (RAQUEL) (test code = TESTED AT [place] [address]) [facility], [address]: Molasses Preparer/Techni kate ID = [id number] for AN WHITLEY SILVA POCT-GLUCOSE [id number] 00:05:24 Test Item Value Reference Range Interpretation Comments POC-GLUCOSE METER 203 mg/dL 70-110 H : TESTED A T [facility] 6720 ([facility] (test code [facility], = 1538) [address]: Molasses Preparer/Techni kate ID = [id number] for Shameka (con tract)Janeen POCT-GLUCOSE [id number] 21:28:52 Test Item Value Reference Range Interpretation Comments POC-GLUCOSE METER 192 mg/dL 70-110 H : TESTED A T [facility] 6720 (BEAKER) (test code = [facility], 1538) [address]: Molasses Preparer/Techni kate ID = [id number] for Ts zoraida Malinda POCT-GLUCOSE [id number] 13:28:39 Test Item Value Reference Range Interpretation Comments POC-GLUCOSE METER 214 mg/dL 70-110 H : TESTED A T [facility] 6720 (BEAKER) (test code = [facility], 1538) [address]: Molasses Preparer/Techni kate ID = [id number] for Maia Jean POCT-GLUCOSE [id number] 07:48:12 Test Item Value Reference Range Interpretation Comments POC-GLUCOSE METER 146 mg/dL 70-110 H : TESTED A T [facility] 6720 (BEAKER) (test code = [facility], 1538) [address]: Molasses Preparer/Techni kate ID = [id number] for Robins rellmadeline COMPREHENSIVE METABOLIC [id number] 05:53:24 Test Item Value Reference Range Interpretation Comments TOTAL PROTEIN 7.1 gm/dL 6.0-8.3 (BEAKER) (test code = 770) ALBUMIN (BEAKER) 3.5 g/dL 3.5-5.0 (test code = 1145) ALKALINE 96 U/L 40-150 PHOSPHATASE (BEAKER) (test code = 346) BILIRUBIN TOTAL 0.9 mg/dL 0.2-1.2 (BEAKER) (test code = 377) SODIUM (BEAKER) 135 meq/L 136-145 L (test code = 381) POTASSIUM (BEAKER) 3.2 meq/L 3.5-5.1 L (test code = 379) CHLORIDE (BEAKER) 89 meq/L 98-107 L (test code = 382) CO2 (BEAKER) (test 33 meq/L 22-29 H code = 355) BLOOD UREA 47 mg/dL 7-21 H NITROGEN (BEAKER) (test code = 354) CREATININE 2.48 mg/dL 0.57-1.25 H (BEAKER) (test code = 358) GLUCOSE RANDOM 138 mg/dL 70-105 H (BEAKER) (test code = 652) CALCIUM (BEAKER) 9.8 mg/dL 8.4-10.2 (test code = 697) AST (SGOT) 21 U/L 5-34 (BEAKER) (test code = 353) ALT (SGPT) 11 U/L 6-55 (BEAKER) (test code = 347) EGFR (BEAKER) 21 Interpretatio n of eGFR (test code = 1092) mL/min/1.[address] age Description sq m Result G1 Jade l or high >=90 G2 Mildly decreased 60-89 G3a Mildl y to moderately 45-5 9 G3b Moderately to s everely 30-44 G4 Severl y decreased 15-29 G5 Kidney failure <15Reported eGF R is based on the CKD-EPI 2020 equation that d oes not use a race coefficientEsti mated GFR is not as accur ate as Creatinine Brenda gunnar in predicting glom erular filtration rate . Estimated GFR is not appl icable for dialysis patien ts Molasses Preparer ID - [id number] 05:52:38 Test Item Value Reference Range Interpretation Comments PHOSPHORUS (BEAKER) (test code = 4.3 mg/dL 2.3-4.7 604) Molasses Preparer ID - [id number] 05:52:37 Test Item Value Reference Range Interpretation Comments MAGNESIUM (BEAKER) (test code = 2.3 mg/dL 1.6-2.6 627) Molasses Preparer ID - ADMINCBC W/PLT COUNT & AUTO [id number] 05:25:03 Test Item Value Reference Range Interpretation Comments WHITE BLOOD CELL COUNT (BEAKER) 10.1 K/ L 3.5-10.5 (test code = 775) RED BLOOD CELL COUNT (BEAKER) 4.22 M/ L 3.93-5.22 (test code = 761) HEMOGLOBIN (BEAKER) (test code = 13.3 GM/DL 11.2-15.7 410) HEMATOCRIT (BEAKER) (test code = 40.5 % 34.1-44.9 411) MEAN CORPUSCULAR VOLUME (BEAKER) 96 fL 79-95 H (test code = 753) MEAN CORPUSCULAR HEMOGLOBIN 31.5 pg 25.6-32.2 (BEAKER) (test code = 751) MEAN CORPUSCULAR HEMOGLOBIN CONC 32.8 GM/DL 32.2-35.5 (BEAKER) (test code = 752) RED CELL DISTRIBUTION WIDTH 13.2 % 11.7-14.4 (BEAKER) (test code = 412) PLATELET COUNT (BEAKER) (test 266 K/CU MM 150-450 code = 756) MEAN PLATELET VOLUME (BEAKER) 10.6 fL 9.4-12.3 (test code = 754) NUCLEATED RED BLOOD CELLS 0 /100 WBC 0-0 (BEAKER) (test code = 413) NEUTROPHILS RELATIVE PERCENT 58 % (BEAKER) (test code = 429) LYMPHOCYTES RELATIVE PERCENT 32 % (BEAKER) (test code = 430) MONOCYTES RELATIVE PERCENT 7 % (BEAKER) (test code = 431) EOSINOPHILS RELATIVE PERCENT 2 % (BEAKER) (test code = 432) BASOPHILS RELATIVE PERCENT 1 % (BEAKER) (test code = 437) NEUTROPHILS ABSOLUTE COUNT 5.87 K/ L 1.56-6.13 (BEAKER) (test code = 670) LYMPHOCYTES ABSOLUTE COUNT 3.20 K/ L 1.18-3.74 (BEAKER) (test code = 414) MONOCYTES ABSOLUTE COUNT (BEAKER) 0.75 K/ L 0.24-0.36 H (test code = 415) EOSINOPHILS ABSOLUTE COUNT 0.18 K/ L 0.04-0.36 (BEAKER) (test code = 416) BASOPHILS ABSOLUTE COUNT (BEAKER) 0.07 K/ L 0.01-0.08 (test code = 417) IMMATURE GRANULOCYTES-RELATIVE 0.20 % 0.00-1.00 PERCENT (BEAKER) (test code = 2801) CALCIUM, [id number] 05:20:09 Test Item Value Reference Range Interpretation Comments CALCIUM IONIZED (BEAKER) (test 1.11 mmol/L 1.12-1.27 L code = 698) PH, BLOOD (BEAKER) (test code = 7.42 1810) POCT-GLUCOSE [id number] 22:04:28 Test Item Value Reference Range Interpretation Comments POC-GLUCOSE METER 135 mg/dL 70-110 H : TESTED A T [facility] 6720 (BEAKER) (test code = MENA Clemons [facility], 1538) [id number]: Molasses Preparer/Techni kate ID = [id number] for THOMAS JOHNSON RA POCT-GLUCOSE [id number] 17:36:31 Test Item Value Reference Range Interpretation Comments POC-GLUCOSE METER 210 mg/dL 70-110 H : TESTED A T [facility] 6720 (BEAKER) (test code TERESITA [facility], = 1538) [id number]: Molasses Preparer/Techni kate ID = [id number] for Hutchins (contract)Blanche ruben BASIC METABOLIC [id number] 16:14:58 Test Item Value Reference Range Interpretation Comments SODIUM (BEAKER) 136 meq/L 136-145 (test code = 381) POTASSIUM 3.6 meq/L 3.5-5.1 (BEAKER) (test code = 379) CHLORIDE (BEAKER) 88 meq/L 98-107 L (test code = 382) CO2 (BEAKER) 34 meq/L 22-29 H (test code = 355) BLOOD UREA 47 mg/dL 7-21 H NITROGEN (BEAKER) (test code = 354) CREATININE 2.31 mg/dL 0.57-1.25 H (BEAKER) (test code = 358) GLUCOSE RANDOM 192 mg/dL 70-105 H (BEAKER) (test code = 652) CALCIUM (BEAKER) 10.1 mg/dL 8.4-10.2 (test code = 697) EGFR (BEAKER) 23 Interpretatio n of eGFR (test code = mL/min/1.73 values Stage De scription 1092) sq m Result G1 Jade l or high >=90 G2 Mildly decreased 60-89 G3a Mildl y to moderately 45-5 9 G3b Moderately to s everely 30-44 G4 Severl y decreased 15-29 G5 Kidney failure <15Reported eGF R is based on the CKD-EPI 2021 equation that d oes not use a race coefficientEsti mated GFR is not as accur ate as Creatinine Brenda gunnar in predicting glom erular filtration rate . Estimated GFR is not appl icable for dialysis patien ts Molasses Preparer ID - MARCOPOCT-GLUCOSE [id number] 11:27:59 Test Item Value Reference Range Interpretation Comments POC-GLUCOSE METER 216 mg/dL 70-110 H : TESTED A T [facility] 6720 (BEAKER) (test code TERES[facility], = 1538) [address]: Molasses Preparer/Techni kate ID = [id number] for Cuong (contract)Blanche POCT-GLUCOSE [id number] 08:50:50 Test Item Value Reference Range Interpretation Comments POC-GLUCOSE METER 192 mg/dL 70-110 H : TESTED A T [facility] 6720 (BEAKER) (test code = MENA Clemons [facility], 1538) [address]: Molasses Preparer/Techni kate ID = [id number] for An Morales COMPREHENSIVE METABOLIC [id number] 04:24:05 Test Item Value Reference Range Interpretation Comments TOTAL PROTEIN 7.2 gm/dL 6.0-8.3 (BEAKER) (test code = 770) ALBUMIN (BEAKER) 3.6 g/dL 3.5-5.0 (test code = 1145) ALKALINE 100 U/L 40-150 PHOSPHATASE (BEAKER) (test code = 346) BILIRUBIN TOTAL 1.3 mg/dL 0.2-1.2 H (BEAKER) (test code = 377) SODIUM (BEAKER) 135 meq/L 136-145 L (test code = 381) POTASSIUM (BEAKER) 3.5 meq/L 3.5-5.1 (test code = 379) CHLORIDE (BEAKER) 89 meq/L 98-107 L (test code = 382) CO2 (BEAKER) (test 34 meq/L 22-29 H code = 355) BLOOD UREA 45 mg/dL 7-21 H NITROGEN (BEAKER) (test code = 354) CREATININE 2.42 mg/dL 0.57-1.25 H (BEAKER) (test code = 358) GLUCOSE RANDOM 187 mg/dL 70-105 H (BEAKER) (test code = 652) CALCIUM (BEAKER) 10.0 mg/dL 8.4-10.2 (test code = 697) AST (SGOT) 22 U/L 5-34 (BEAKER) (test code = 353) ALT (SGPT) 11 U/L 6-55 (BEAKER) (test code = 347) EGFR (BEAKER) 22 Interpretatio n of eGFR (test code = 1092) mL/min/1.[address] age Description sq m Result G1 Jade l or high >=90 G2 Mildly decreased 60-89 G3a Mildl y to moderately 45-5 9 G3b Moderately to s everely 30-44 G4 Severl y decreased 15-29 G5 Kidney failure <15Reported eGF R is based on the CKD-EPI 202 equation that d oes not use a race coefficientEsti mated GFR is not as accur ate as Creatinine Brenda maher in predicting glom erular filtration rate . Estimated GFR is not appl icable for dialysis patien ts Molasses Preparer ID - [id number] 04:22:34 Test Item Value Reference Range Interpretation Comments PHOSPHORUS (BEAKER) (test code = 4.1 mg/dL 2.3-4.7 604) Molasses Preparer ID - [id number] 04:22:33 Test Item Value Reference Range Interpretation Comments MAGNESIUM (BEAKER) (test code = 2.2 mg/dL 1.6-2.6 627) Molasses Preparer ID - MARCOCBC W/PLT COUNT & AUTO [id number] 04:07:09 Test Item Value Reference Range Interpretation Comments WHITE BLOOD CELL COUNT (BEAKER) 10.5 K/ L 3.5-10.5 (test code = 775) RED BLOOD CELL COUNT (BEAKER) 4.39 M/ L 3.93-5.22 (test code = 761) HEMOGLOBIN (BEAKER) (test code = 13.9 GM/DL 11.2-15.7 410) HEMATOCRIT (BEAKER) (test code = 42.3 % 34.1-44.9 411) MEAN CORPUSCULAR VOLUME (BEAKER) 96 fL 79-95 H (test code = 753) MEAN CORPUSCULAR HEMOGLOBIN 31.7 pg 25.6-32.2 (BEAKER) (test code = 751) MEAN CORPUSCULAR HEMOGLOBIN CONC 32.9 GM/DL 32.2-35.5 (BEAKER) (test code = 752) RED CELL DISTRIBUTION WIDTH 13.2 % 11.7-14.4 (BEAKER) (test code = 412) PLATELET COUNT (BEAKER) (test 266 K/CU MM 150-450 code = 756) MEAN PLATELET VOLUME (BEAKER) 10.9 fL 9.4-12.3 (test code = 754) NUCLEATED RED BLOOD CELLS 0 /100 WBC 0-0 (BEAKER) (test code = 413) NEUTROPHILS RELATIVE PERCENT 59 % (BEAKER) (test code = 429) LYMPHOCYTES RELATIVE PERCENT 29 % (BEAKER) (test code = 430) MONOCYTES RELATIVE PERCENT 9 % (BEAKER) (test code = 431) EOSINOPHILS RELATIVE PERCENT 2 % (BEAKER) (test code = 432) BASOPHILS RELATIVE PERCENT 1 % (BEAKER) (test code = 437) NEUTROPHILS ABSOLUTE COUNT 6.23 K/ L 1.56-6.13 H (BEAKER) (test code = 670) LYMPHOCYTES ABSOLUTE COUNT 3.09 K/ L 1.18-3.74 (BEAKER) (test code = 414) MONOCYTES ABSOLUTE COUNT (BEAKER) 0.91 K/ L 0.24-0.36 H (test code = 415) EOSINOPHILS ABSOLUTE COUNT 0.17 K/ L 0.04-0.36 (BEAKER) (test code = 416) BASOPHILS ABSOLUTE COUNT (BEAKER) 0.07 K/ L 0.01-0.08 (test code = 417) IMMATURE GRANULOCYTES-RELATIVE 0.40 % 0.00-1.00 PERCENT (BEAKER) (test code = 2801) CALCIUM, [id number] 03:52:07 Test Item Value Reference Range Interpretation Comments CALCIUM IONIZED (BEAKER) (test 1.09 mmol/L 1.12-1.27 L code = 698) PH, BLOOD (BEAKER) (test code = 7.43 1810) POCT-GLUCOSE [id number] 21:58:00 Test Item Value Reference Range Interpretation Comments POC-GLUCOSE METER 236 mg/dL 70-110 H : TESTED A T [facility] 6720 (BEAKER) (test code = MENA PINK [place], 1538) [address]: Molasses Preparer/Techni kate ID = [id number] for THOMAS JOHNSON RA BASIC METABOLIC [id number] 18:31:04 Test Item Value Reference Range Interpretation Comments SODIUM (BEAKER) 131 meq/L 136-145 L (test code = 381) POTASSIUM 4.5 meq/L 3.5-5.1 Specimen modera tely (BEAKER) (test hemolyzed code = 379) CHLORIDE (BEAKER) 89 meq/L 98-107 L (test code = 382) CO2 (BEAKER) 28 meq/L 22-29 (test code = 355) BLOOD UREA 41 mg/dL 7-21 H NITROGEN (BEAKER) (test code = 354) CREATININE 2.36 mg/dL 0.57-1.25 H Specimen modera tely (BEAKER) (test hemolyzed code = 358) GLUCOSE RANDOM 169 mg/dL 70-105 H (BEAKER) (test code = 652) CALCIUM (BEAKER) 9.7 mg/dL 8.4-10.2 (test code = 697) EGFR (BEAKER) 22 Interpretati on of eGFR (test code = mL/min/1.73 values Stage De scription 1092) sq m Result G1 Jade l or high >=90 G2 Mildly decreased 60-89 G3a Mildl y to moderately 45-5 9 G3b Moderately to s everely 30-44 G4 Severl y decreased 15-29 G5 Kidney failure <15Reported eGF R is based on the CKD-EPI 2020 equation that d oes not use a race coefficientEsti mated GFR is not as accur ate as Creatinine Brenda maher in predicting glom erular filtration rate . Estimated GFR is not appl icable for dialysis patien ts Molasses Preparer ID - ADMINPOCT-GLUCOSE [id number] 16:12:40 Test Item Value Reference Range Interpretation Comments POC-GLUCOSE METER 191 mg/dL 70-110 H : TESTED A T [facility] 6720 (BEAKER) (test code [facility], = 1538) [address]: Molasses Preparer/Techni kate ID = [id number] for Cuong (contract), LaT onya POCT-GLUCOSE [id number] 11:48:50 Test Item Value Reference Range Interpretation Comments POC-GLUCOSE METER 175 mg/dL 70-110 H : TESTED A T [facility] 6720 (BEAKER) (test code [facility], = 1538) [address]: Molasses Preparer/Techni kate ID = [id number] for Cuong (contract), LaT onya POCT-GLUCOSE [id number] 07:41:46 Test Item Value Reference Range Interpretation Comments POC-GLUCOSE METER 159 mg/dL 70-110 H : TESTED A T [facility] 6720 (BEAKER) (test code [facility], = 1538) [address]: Molasses Preparer/Techni kate ID = [id number] for Cuong (contract), LaT onya COMPREHENSIVE METABOLIC [id number] 04:27:57 Test Item Value Reference Range Interpretation Comments TOTAL PROTEIN 7.4 gm/dL 6.0-8.3 Specimen sligh tly (BEAKER) (test hemolyzed code = 770) ALBUMIN (BEAKER) 3.6 g/dL 3.5-5.0 Specimen sl ightly (test code = 1145) hemolyzed ALKALINE 100 U/L 40-150 PHOSPHATASE (BEAKER) (test code = 346) BILIRUBIN TOTAL 1.2 mg/dL 0.2-1.2 Specimen sli ghtly (BEAKER) (test hemolyzed code = 377) SODIUM (BEAKER) 136 meq/L 136-145 (test code = 381) POTASSIUM (BEAKER) 3.9 meq/L 3.5-5.1 Specimen slightly (test code = 379) hemolyzed CHLORIDE (BEAKER) 89 meq/L 98-107 L (test code = 382) CO2 (BEAKER) (test 34 meq/L 22-29 H code = 355) BLOOD UREA 41 mg/dL 7-21 H NITROGEN (BEAKER) (test code = 354) CREATININE 2.44 mg/dL 0.57-1.25 H Specimen slight ly (BEAKER) (test hemolyzed code = 358) GLUCOSE RANDOM 141 mg/dL 70-105 H (BEAKER) (test code = 652) CALCIUM (BEAKER) 10.0 mg/dL 8.4-10.2 (test code = 697) AST (SGOT) 30 U/L 5-34 Specimen slight ly (BEAKER) (test hemolyzed code = 353) ALT (SGPT) 11 U/L 6-55 Specimen slight ly (BEAKER) (test hemolyzed code = 347) EGFR (BEAKER) 21 Interpretatio n of eGFR (test code = 1092) mL/min/1.[address] age Description sq m Result G1 Jade l or high >=90 G2 Mildly decreased 60-89 G3a Mildl y to moderately 45-5 9 G3b Moderately to s everely 30-44 G4 Severl y decreased 15-29 G5 Kidney failure <15Reported eGF R is based on the CKD-EPI 2020 equation that d oes not use a race coefficientEsti mated GFR is not as accur ate as Creatinine Brenda maher in predicting glom erular filtration rate . Estimated GFR is not appl icable for dialysis patien ts Molasses Preparer ID - [id number] 04:27:08 Test Item Value Reference Range Interpretation Comments MAGNESIUM (BEAKER) 2.2 mg/dL 1.6-2.6 Specimen slightly (test code = 627) hemolyzed Molasses Preparer ID - [id number] 04:27:08 Test Item Value Reference Range Interpretation Comments PHOSPHORUS (BEAKER) 3.9 mg/dL 2.3-4.7 Specimen slightly (test code = 604) hemolyzed Molasses Preparer ID - MARCOCALCIUM, [id number] 04:13:07 Test Item Value Reference Range Interpretation Comments CALCIUM IONIZED (BEAKER) (test 1.15 mmol/L 1.12-1.27 code = 698) PH, BLOOD (BEAKER) (test code = 7.41 1810) CBC W/PLT COUNT & AUTO [id number] 04:06:02 Test Item Value Reference Range Interpretation Comments WHITE BLOOD CELL COUNT (BEAKER) 10.9 K/ L 3.5-10.5 H (test code = 775) RED BLOOD CELL COUNT (BEAKER) 4.60 M/ L 3.93-5.22 (test code = 761) HEMOGLOBIN (BEAKER) (test code = 14.4 GM/DL 11.2-15.7 410) HEMATOCRIT (BEAKER) (test code = 44.2 % 34.1-44.9 411) MEAN CORPUSCULAR VOLUME (BEAKER) 96 fL 79-95 H (test code = 753) MEAN CORPUSCULAR HEMOGLOBIN 31.3 pg 25.6-32.2 (BEAKER) (test code = 751) MEAN CORPUSCULAR HEMOGLOBIN CONC 32.6 GM/DL 32.2-35.5 (BEAKER) (test code = 752) RED CELL DISTRIBUTION WIDTH 13.2 % 11.7-14.4 (BEAKER) (test code = 412) PLATELET COUNT (BEAKER) (test 299 K/CU MM 150-450 code = 756) MEAN PLATELET VOLUME (BEAKER) 10.9 fL 9.4-12.3 (test code = 754) NUCLEATED RED BLOOD CELLS 0 /100 WBC 0-0 (BEAKER) (test code = 413) NEUTROPHILS RELATIVE PERCENT 59 % (BEAKER) (test code = 429) LYMPHOCYTES RELATIVE PERCENT 30 % (BEAKER) (test code = 430) MONOCYTES RELATIVE PERCENT 8 % (BEAKER) (test code = 431) EOSINOPHILS RELATIVE PERCENT 1 % (BEAKER) (test code = 432) BASOPHILS RELATIVE PERCENT 1 % (BEAKER) (test code = 437) NEUTROPHILS ABSOLUTE COUNT 6.46 K/ L 1.56-6.13 H (BEAKER) (test code = 670) LYMPHOCYTES ABSOLUTE COUNT 3.29 K/ L 1.18-3.74 (BEAKER) (test code = 414) MONOCYTES ABSOLUTE COUNT (BEAKER) 0.88 K/ L 0.24-0.36 H (test code = 415) EOSINOPHILS ABSOLUTE COUNT 0.15 K/ L 0.04-0.36 (BEAKER) (test code = 416) BASOPHILS ABSOLUTE COUNT (BEAKER) 0.07 K/ L 0.01-0.08 (test code = 417) IMMATURE GRANULOCYTES-RELATIVE 0.40 % 0.00-1.00 PERCENT (BEAKER) (test code = 2801) POCT-GLUCOSE [id number] 21:38:51 Test Item Value Reference Range Interpretation Comments POC-GLUCOSE METER 162 mg/dL 70-110 H : TESTED A T [facility] 6720 (BEAKER) (test code = [facility], 1538) [address]: Molasses Preparer/Techni kate ID = [id number] for TANGELA Kitchen BASIC METABOLIC [id number] 17:32:44 Test Item Value Reference Range Interpretation Comments SODIUM (BEAKER) 135 meq/L 136-145 L (test code = 381) POTASSIUM 4.6 meq/L 3.5-5.1 Specimen slight ly (BEAKER) (test hemolyzed code = 379) CHLORIDE (BEAKER) 91 meq/L 98-107 L (test code = 382) CO2 (BEAKER) 31 meq/L 22-29 H (test code = 355) BLOOD UREA 38 mg/dL 7-21 H NITROGEN (BEAKER) (test code = 354) CREATININE 2.46 mg/dL 0.57-1.25 H Specimen slight ly (BEAKER) (test hemolyzed code = 358) GLUCOSE RANDOM 176 mg/dL 70-105 H (BEAKER) (test code = 652) CALCIUM (BEAKER) 10.3 mg/dL 8.4-10.2 H (test code = 697) EGFR ([facility] 21 Interpretatio n of eGFR (test code = mL/min/1.73 values Stage De scription 1092) sq m Result G1 Jade l or high >=90 G2 Mildly decreased 60-89 G3a Mildl y to moderately 45-5 9 G3b Moderately to s everely 30-44 G4 Severl y decreased 15-29 G5 Kidney failure <15Reported eGF R is based on the CKD-EPI 2020 equation that d oes not use a race coefficientEsti mated GFR is not as accur ate as Creatinine Brenda gunnar in predicting glom erular filtration rate . Estimated GFR is not appl icable for dialysis patien ts Molasses Preparer ID - BSPOCT-GLUCOSE [id number] 16:47:27 Test Item Value Reference Range Interpretation Comments POC-GLUCOSE METER 200 mg/dL 70-110 H : Notified RN/MD: (RAQUEL) (test code = TESTED AT [place] [address] 153) [facility], [address]: Molasses Preparer/Techni kate ID = [id number] for AN WHITLEY SILVA POCT-GLUCOSE [id number] 12:07:51 Test Item Value Reference Range Interpretation Comments POC-GLUCOSE METER 267 mg/dL 70-110 H : Notified RN/MD: (RAQUEL) (test code = TESTED AT [place] [id number] 1538) [facility], [address]: Molasses Preparer/Techni kate ID = [id number] for AN WHITLEY SILVA POCT-GLUCOSE [id number] 08:38:05 Test Item Value Reference Range Interpretation Comments POC-GLUCOSE METER 192 mg/dL 70-110 H : TESTED A T [facility] 6720 ([facility] (test code = [facility], 1538) [address]: Molasses Preparer/Techni kate ID = [id number] for AN WHITLEY SILVA COMPREHENSIVE METABOLIC [id number] 06:53:24 Test Item Value Reference Range Interpretation Comments TOTAL PROTEIN 6.9 gm/dL 6.0-8.3 ([facility] (test code = 770) ALBUMIN ([facility] 3.5 g/dL 3.5-5.0 (test code = 1145) ALKALINE 95 U/L 40-150 PHOSPHATASE (BEAKER) (test code = 346) BILIRUBIN TOTAL 1.1 mg/dL 0.2-1.2 (BEAKER) (test code = 377) SODIUM (BEAKER) 134 meq/L 136-145 L (test code = 381) POTASSIUM (BEAKER) 3.5 meq/L 3.5-5.1 (test code = 379) CHLORIDE (BEAKER) 89 meq/L 98-107 L (test code = 382) CO2 (BEAKER) (test 34 meq/L 22-29 H code = 355) BLOOD UREA 37 mg/dL 7-21 H NITROGEN (BEAKER) (test code = 354) CREATININE 2.23 mg/dL 0.57-1.25 H (BEAKER) (test code = 358) GLUCOSE RANDOM 169 mg/dL 70-105 H (BEAKER) (test code = 652) CALCIUM (BEAKER) 9.7 mg/dL 8.4-10.2 (test code = 697) AST (SGOT) 21 U/L 5-34 (BEAKER) (test code = 353) ALT (SGPT) 10 U/L 6-55 (BEAKER) (test code = 347) EGFR (BEAKER) 24 Interpretatio n of eGFR (test code = 1092) mL/min/1.[address] age Description sq m Result G1 Jade l or high >=90 G2 Mildly decreased 60-89 G3a Mildl y to moderately 45-5 9 G3b Moderately to s everely 30-44 G4 Severl y decreased 15-29 G5 Kidney failure <15Reported eGF R is based on the CKD-EPI 202 equation that d oes not use a race coefficientEsti mated GFR is not as accur ate as Creatinine Brenda gunnar in predicting glom erular filtration rate . Estimated GFR is not appl icable for dialysis patien ts Molasses Preparer ID - [id number] 06:51:05 Test Item Value Reference Range Interpretation Comments MAGNESIUM (BEAKER) (test code = 2.1 mg/dL 1.6-2.6 627) Molasses Preparer ID - mmBLOOD GAS, [id number] 06:27:09 Test Item Value Reference Range Interpretation Comments PH VENOUS (BEAKER) (test code = 7.40 7.32-7.42 701) PCO2 VENOUS (BEAKER) (test code = 61 mm Hg 41-51 H 755) PO2 VENOUS (BEAKER) (test code = 73 mm Hg 25-40 H 702) O2 SATURATION VENOUS (BEAKER) 94.3 % 40.0-70.0 H (test code = 703) HCO3 VENOUS (BEAKER) (test code = 36 mmol/L 21-29 H 705) BASE EXCESS VENOUS (BEAKER) (test 9.2 mmol/L -2.0-3.0 H code = 704) PATIENT TEMPERATURE (BEAKER) (test 37.0 code = 1818) FIO2 (BEAKER) (test code = 1819) 21.0 CALCIUM, [id number] 06:25:33 Test Item Value Reference Range Interpretation Comments CALCIUM IONIZED (BEAKER) (test 1.15 mmol/L 1.12-1.27 code = 698) PH, BLOOD (BEAKER) (test code = 7.40 1810) CBC W/PLT COUNT & AUTO [id number] 06:22:42 Test Item Value Reference Range Interpretation Comments WHITE BLOOD CELL COUNT (BEAKER) 11.2 K/ L 3.5-10.5 H (test code = 775) RED BLOOD CELL COUNT (BEAKER) 4.29 M/ L 3.93-5.22 (test code = 761) HEMOGLOBIN (BEAKER) (test code = 13.6 GM/DL 11.2-15.7 410) HEMATOCRIT (BEAKER) (test code = 41.3 % 34.1-44.9 411) MEAN CORPUSCULAR VOLUME (BEAKER) 96 fL 79-95 H (test code = 753) MEAN CORPUSCULAR HEMOGLOBIN 31.7 pg 25.6-32.2 (BEAKER) (test code = 751) MEAN CORPUSCULAR HEMOGLOBIN CONC 32.9 GM/DL 32.2-35.5 (BEAKER) (test code = 752) RED CELL DISTRIBUTION WIDTH 13.3 % 11.7-14.4 (BEAKER) (test code = 412) PLATELET COUNT (BEAKER) (test 262 K/CU MM 150-450 code = 756) MEAN PLATELET VOLUME (BEAKER) 11.1 fL 9.4-12.3 (test code = 754) NUCLEATED RED BLOOD CELLS 0 /100 WBC 0-0 (BEAKER) (test code = 413) NEUTROPHILS RELATIVE PERCENT 59 % (BEAKER) (test code = 429) LYMPHOCYTES RELATIVE PERCENT 29 % (BEAKER) (test code = 430) MONOCYTES RELATIVE PERCENT 10 % (BEAKER) (test code = 431) EOSINOPHILS RELATIVE PERCENT 1 % (BEAKER) (test code = 432) BASOPHILS RELATIVE PERCENT 1 % (BEAKER) (test code = 437) NEUTROPHILS ABSOLUTE COUNT 6.62 K/ L 1.56-6.13 H (BEAKER) (test code = 670) LYMPHOCYTES ABSOLUTE COUNT 3.23 K/ L 1.18-3.74 (BEAKER) (test code = 414) MONOCYTES ABSOLUTE COUNT (BEAKER) 1.08 K/ L 0.24-0.36 H (test code = 415) EOSINOPHILS ABSOLUTE COUNT 0.16 K/ L 0.04-0.36 (BEAKER) (test code = 416) BASOPHILS ABSOLUTE COUNT (BEAKER) 0.06 K/ L 0.01-0.08 (test code = 417) IMMATURE GRANULOCYTES-RELATIVE 0.40 % 0.00-1.00 PERCENT (BEAKER) (test code = 2801) POCT-GLUCOSE [id number] 21:10:40 Test Item Value Reference Range Interpretation Comments POC-GLUCOSE METER 218 mg/dL 70-110 H : TESTED A T [facility] 6720 ([facility] (test code = BANNERDAILY Clemons [facility], 153) [address]: Molasses Preparer/Techni kate ID = [id number] for TANGELA Kitchen POCT-GLUCOSE [id number] 17:55:05 Test Item Value Reference Range Interpretation Comments POC-GLUCOSE METER 243 mg/dL 70-110 H : Notified RN/MD: ([facility] (test code = TESTED AT [facility] 6720 1538) [facility], [address]: Molasses Preparer/Techni kate ID = [id number] for WHITLEY COFFEY BASIC METABOLIC [id number] 17:06:19 Test Item Value Reference Range Interpretation Comments SODIUM (BEAKER) 133 meq/L 136-145 L (test code = 381) POTASSIUM 3.7 meq/L 3.5-5.1 (BEAKER) (test code = 379) CHLORIDE (BEAKER) 88 meq/L 98-107 L (test code = 382) CO2 (BEAKER) 35 meq/L 22-29 H (test code = 355) BLOOD UREA 33 mg/dL 7-21 H NITROGEN (BEAKER) (test code = 354) CREATININE 2.07 mg/dL 0.57-1.25 H (BEAKER) (test code = 358) GLUCOSE RANDOM 227 mg/dL 70-105 H (BEAKER) (test code = 652) CALCIUM (BEAKER) 10.4 mg/dL 8.4-10.2 H (test code = 697) EGFR (BEAKER) 26 Interpretatio n of eGFR (test code = mL/min/1.73 values Stage De scription 1092) sq m Result G1 Jade l or high >=90 G2 Mildly decreased 60-89 G3a Mild ly to moderately 45-5 9 G3b Moderately to s everely 30-44 G4 Severl y decreased 15-29 G5 Kidney failure <15Reported eGF R is based on the CKD-EPI 2020 equation that d oes not use a race coefficientEsti mated GFR is not as accur ate as Creatinine Brenda maher in predicting glom erular filtration rate . Estimated GFR is not appl icable for dialysis patien ts Molasses Preparer ID - BSPOCT-GLUCOSE [id number] 13:06:11 Test Item Value Reference Range Interpretation Comments POC-GLUCOSE METER 176 mg/dL 70-110 H : Notified RN/MD: (RAQUEL) (test code = TESTED AT [place] [address]38) [facility], [address]: Molasses Preparer/Techni kate ID = [id number] for AN WHITLEY SILVA POCT-GLUCOSE [id number] 09:02:49 Test Item Value Reference Range Interpretation Comments POC-GLUCOSE METER 178 mg/dL 70-110 H : Notified RN/MD: (RAQUEL) (test code = TESTED AT [facility] 67 1538) [facility], [address]: Molasses Preparer/Techni kate ID = [id number] for AN WHITLEY SLIVA COMPREHENSIVE METABOLIC [id number] 06:47:17 Test Item Value Reference Range Interpretation Comments TOTAL PROTEIN 7.0 gm/dL 6.0-8.3 ([facility] (test code = 770) ALBUMIN (AKER) 3.6 g/dL 3.5-5.0 (test code = 1145) ALKALINE 97 U/L 40-150 PHOSPHATASE (BEAKER) (test code = 346) BILIRUBIN TOTAL 1.0 mg/dL 0.2-1.2 (BEAKER) (test code = 377) SODIUM (BEAKER) 134 meq/L 136-145 L (test code = 381) POTASSIUM (BEAKER) 3.3 meq/L 3.5-5.1 L (test code = 379) CHLORIDE (BEAKER) 88 meq/L 98-107 L (test code = 382) CO2 (BEAKER) (test 35 meq/L 22-29 H code = 355) BLOOD UREA 31 mg/dL 7-21 H NITROGEN (BEAKER) (test code = 354) CREATININE 1.92 mg/dL 0.57-1.25 H (BEAKER) (test code = 358) GLUCOSE RANDOM 173 mg/dL 70-105 H (BEAKER) (test code = 652) CALCIUM (BEAKER) 9.9 mg/dL 8.4-10.2 (test code = 697) AST (SGOT) 21 U/L 5-34 (BEAKER) (test code = 353) ALT (SGPT) 11 U/L 6-55 (BEAKER) (test code = 347) EGFR (BEAKER) 29 Interpretatio n of eGFR (test code = 1092) mL/min/1.[address] age Description sq m Result G1 Jade l or high >=90 G2 Mildly decreased 60-89 G3a Mild ly to moderately 45-5 9 G3b Moderately to s everely 30-44 G4 Severl y decreased 15-29 G5 Kidney failure <15Reported eGF R is based on the CKD-EPI 202 equation that d oes not use a race coefficientEsti mated GFR is not as accur ate as Creatinine Brenda maher in predicting glom erular filtration rate . Estimated GFR is not appl icable for dialysis patien ts Molasses Preparer ID - [id number] 06:33:23 Test Item Value Reference Range Interpretation Comments MAGNESIUM (BEAKER) (test code = 2.1 mg/dL 1.6-2.6 627) Molasses Preparer ID - [id number] 06:33:23 Test Item Value Reference Range Interpretation Comments PHOSPHORUS (BEAKER) (test code = 3.7 mg/dL 2.3-4.7 604) Molasses Preparer ID - mmCBC W/PLT COUNT & AUTO [id number] 06:11:49 Test Item Value Reference Range Interpretation Comments WHITE BLOOD CELL COUNT (BEAKER) 9.9 K/ L 3.5-10.5 (test code = 775) RED BLOOD CELL COUNT (BEAKER) 4.30 M/ L 3.93-5.22 (test code = 761) HEMOGLOBIN (BEAKER) (test code = 13.6 GM/DL 11.2-15.7 410) HEMATOCRIT (BEAKER) (test code = 41.7 % 34.1-44.9 411) MEAN CORPUSCULAR VOLUME (BEAKER) 97 fL 79-95 H (test code = 753) MEAN CORPUSCULAR HEMOGLOBIN 31.6 pg 25.6-32.2 (BEAKER) (test code = 751) MEAN CORPUSCULAR HEMOGLOBIN CONC 32.6 GM/DL 32.2-35.5 (BEAKER) (test code = 752) RED CELL DISTRIBUTION WIDTH 13.3 % 11.7-14.4 (BEAKER) (test code = 412) PLATELET COUNT (BEAKER) (test 274 K/CU MM 150-450 code = 756) MEAN PLATELET VOLUME (BEAKER) 11.1 fL 9.4-12.3 (test code = 754) NUCLEATED RED BLOOD CELLS 0 /100 WBC 0-0 (BEAKER) (test code = 413) NEUTROPHILS RELATIVE PERCENT 62 % (BEAKER) (test code = 429) LYMPHOCYTES RELATIVE PERCENT 26 % (BEAKER) (test code = 430) MONOCYTES RELATIVE PERCENT 9 % (BEAKER) (test code = 431) EOSINOPHILS RELATIVE PERCENT 2 % (BEAKER) (test code = 432) BASOPHILS RELATIVE PERCENT 1 % (BEAKER) (test code = 437) NEUTROPHILS ABSOLUTE COUNT 6.13 K/ L 1.56-6.13 (BEAKER) (test code = 670) LYMPHOCYTES ABSOLUTE COUNT 2.56 K/ L 1.18-3.74 (BEAKER) (test code = 414) MONOCYTES ABSOLUTE COUNT (BEAKER) 0.90 K/ L 0.24-0.36 H (test code = 415) EOSINOPHILS ABSOLUTE COUNT 0.16 K/ L 0.04-0.36 (BEAKER) (test code = 416) BASOPHILS ABSOLUTE COUNT (BEAKER) 0.07 K/ L 0.01-0.08 (test code = 417) IMMATURE GRANULOCYTES-RELATIVE 0.50 % 0.00-1.00 PERCENT (BEAKER) (test code = 2801) CALCIUM, [id number] 06:10:48 Test Item Value Reference Range Interpretation Comments CALCIUM IONIZED (BEAKER) (test 1.13 mmol/L 1.12-1.27 code = 698) PH, BLOOD (BEAKER) (test code = 7.40 1810) POCT-GLUCOSE [id number] 22:03:13 Test Item Value Reference Range Interpretation Comments POC-GLUCOSE METER 181 mg/dL 70-110 H : TESTED A T [facility] 6720 (BEAKER) (test code = [place], 1538) [address]: Molasses Preparer/Techni kate ID = [id number] for THOMAS JOHNSON RA PROTEIN, RANDOM [id number] 19:55:44 Test Item Value Reference Range Interpretation Comments PROTEIN, URINE (BEAKER) (test code = < mg/dL 0-14 1569) Molasses Preparer ID - FSECREATININE, RANDOM [id number] 19:55:00 Test Item Value Reference Range Interpretation Comments CREATININE URINE (BEAKER) (test 28.5 mg/dL code = 375) Reference Range: No NormalsOperator ID - FSEBASIC METABOLIC [id number] 17:46:25 Test Item Value Reference Range Interpretation Comments SODIUM (BEAKER) 134 meq/L 136-145 L (test code = 381) POTASSIUM 3.9 meq/L 3.5-5.1 (BEAKER) (test code = 379) CHLORIDE (BEAKER) 91 meq/L 98-107 L (test code = 382) CO2 (BEAKER) 33 meq/L 22-29 H (test code = 355) BLOOD UREA 28 mg/dL 7-21 H NITROGEN (BEAKER) (test code = 354) CREATININE 1.88 mg/dL 0.57-1.25 H (BEAKER) (test code = 358) GLUCOSE RANDOM 179 mg/dL 70-105 H (BEAKER) (test code = 652) CALCIUM (BEAKER) 10.1 mg/dL 8.4-10.2 (test code = 697) EGFR (BEAKER) 29 Interpretati on of eGFR (test code = mL/min/1.73 values Stage De scription 1092) sq m Result G1 Jade l or high >=90 G2 Mildly decreased 60-89 G3a Mildl y to moderately 45-5 9 G3b Moderately to s everely 30-44 G4 Severl y decreased 15-29 G5 Kidney failure <15Reported eGF R is based on the CKD-EPI 1 equation that d oes not use a race coefficientEsti mated GFR is not as accur ate as Creatinine Brenda gunnar in predicting glom erular filtration rate . Estimated GFR is not appl icable for dialysis patien ts Molasses Preparer ID - MARIOPOCT-GLUCOSE [id number] 16:40:50 Test Item Value Reference Range Interpretation Comments POC-GLUCOSE METER 201 mg/dL 70-110 H : Notified RN/MD: (RAQUEL) (test code = TESTED AT [place] [address] 153) [facility], [address]: Molasses Preparer/Techni kate ID = [id number] for AN WHITLEY SILVA POCT-GLUCOSE [id number] 12:31:29 Test Item Value Reference Range Interpretation Comments POC-GLUCOSE METER 203 mg/dL 70-110 H : Notified RN/MD: (RAQUEL) (test code = TESTED AT [place] [address] 1538) [facility], [address]: Molasses Preparer/Techni kate ID = [id number] for AN WHITLEY SILVA URINALYSIS W/ [id number] 10:16:57 Test Item Value Reference Range Interpretation Comments COLOR (BEAKER) (test code Colorless = 470) CLARITY (BEAKER) (test Clear code = 469) SPECIFIC GRAVITY UA 1.007 1.001-1.035 (BEAKER) (test code = 468) PH UA (BEAKER) (test code 6.5 5.0-8.0 = 467) PROTEIN UA (BEAKER) (test Negative Negative code = 464) GLUCOSE UA (BEAKER) (test 200 mg/dL Negative A code = 365) KETONES UA (BEAKER) (test Negative Negative code = 371) BILIRUBIN UA (BEAKER) Negative Negative (test code = 462) BLOOD UA (BEAKER) (test Negative Negative code = 461) NITRITE UA (BEAKER) (test Negative Negative code = 465) LEUKOCYTE ESTERASE UA Negative Negative (BEAKER) (test code = 466) UROBILINOGEN UA (BEAKER) 0.2 0.2-1.0 (test code = 463) RBC UA (BEAKER) (test code 1 /HPF = 519) WBC UA (BEAKER) (test code 0 /HPF = 520) BACTERIA (BEAKER) (test Rare code = 517) SQUAMOUS EPITHELIAL 2 /HPF (BEAKER) (test code = 516) HYALINE CASTS (BEAKER) 1 /LPF (test code = 514) SOURCE(BEAKER) (test code Urine, Clean Catch = 2795) Molasses Preparer ID - [auto]Molasses Preparer ID - techPOCT-GLUCOSE [id number] 07:35:20 Test Item Value Reference Range Interpretation Comments POC-GLUCOSE METER 155 mg/dL 70-110 H : Notified RN/MD: (BEAKER) (test code = TESTED AT [facility] 6720 1385) [facility], [address]: Molasses Preparer/Techni kate ID = [id number] for AN WHITLEY SILVA BASIC METABOLIC [id number] 07:05:33 Test Item Value Reference Range Interpretation Comments SODIUM (BEAKER) 139 meq/L 136-145 (test code = 381) POTASSIUM 3.6 meq/L 3.5-5.1 (BEAKER) (test code = 379) CHLORIDE (BEAKER) 94 meq/L 98-107 L (test code = 382) CO2 (BEAKER) 34 meq/L 22-29 H (test code = 355) BLOOD UREA 27 mg/dL 7-21 H NITROGEN (BEAKER) (test code = 354) CREATININE 1.71 mg/dL 0.57-1.25 H (BEAKER) (test code = 358) GLUCOSE RANDOM 145 mg/dL 70-105 H (BEAKER) (test code = 652) CALCIUM (BEAKER) 9.7 mg/dL 8.4-10.2 (test code = 697) EGFR (BEAKER) 33 Interpretatio n of eGFR (test code = mL/min/1.73 values Stage De scription 1092) sq m Result G1 Jade l or high >=90 G2 Mildly decreased 60-89 G3a Mildl y to moderately 45-5 9 G3b Moderately to s everely 30-44 G4 Severl y decreased 15-29 G5 Kidney failure <15Reported eGF R is based on the CKD-EPI 2020 equation that d oes not use a race coefficientEsti mated GFR is not as accur ate as Creatinine Brenda maher in predicting glom erular filtration rate . Estimated GFR is not appl icable for dialysis patien ts Molasses Preparer ID - MARIOPOCT-GLUCOSE [id number] 21:48:45 Test Item Value Reference Range Interpretation Comments POC-GLUCOSE METER 155 mg/dL 70-110 H : TESTED A T [facility] 6720 (BEAKER) (test code = [facility], 1538) [address]: Molasses Preparer/Techni kate ID = [id number] for TANGELA Kitchen POCT-GLUCOSE [id number] 17:20:40 Test Item Value Reference Range Interpretation Comments POC-GLUCOSE METER 178 mg/dL 70-110 H : TESTED A T [facility] 6720 (BEAKER) (test code = [facility], 1538) [address]: Molasses Preparer/Techni kate ID = [id number] for Bobbi Lozada BASIC METABOLIC [id number] 17:01:44 Test Item Value Reference Range Interpretation Comments SODIUM (BEAKER) 134 meq/L 136-145 L (test code = 381) POTASSIUM 4.3 meq/L 3.5-5.1 Specimen slight ly (BEAKER) (test hemolyzed code = 379) CHLORIDE (BEAKER) 94 meq/L 98-107 L (test code = 382) CO2 (BEAKER) 29 meq/L 22-29 (test code = 355) BLOOD UREA 27 mg/dL 7-21 H NITROGEN (BEAKER) (test code = 354) CREATININE 1.81 mg/dL 0.57-1.25 H Specimen slight ly (BEAKER) (test hemolyzed code = 358) GLUCOSE RANDOM 188 mg/dL 70-105 H (BEAKER) (test code = 652) CALCIUM (BEAKER) 10.0 mg/dL 8.4-10.2 (test code = 697) EGFR (BEAKER) 31 Interpretatio n of eGFR (test code = mL/min/1.73 values Stage De scription 1092) sq m Result G1 Jade l or high >=90 G2 Mildly decreased 60-89 G3a Mildl y to moderately 45-5 9 G3b Moderately to s everely 30-44 G4 Severl y decreased 15-29 G5 Kidney failure <15Reported eGF R is based on the CKD-EPI 2020 equation that d oes not use a race coefficientEsti mated GFR is not as accur ate as Creatinine Brenda maher in predicting glom erular filtration rate . Estimated GFR is not appl icable for dialysis patien ts Molasses Preparer ID - RAMILA GPOCT-GLUCOSE [id number] 11:41:25 Test Item Value Reference Range Interpretation Comments POC-GLUCOSE METER 181 mg/dL 70-110 H : TESTED A T [facility] 6720 (BEAKER) (test code = [facility], 1538) [address]: Molasses Preparer/Techni kate ID = [id number] for Bobbi Lozada POCT-GLUCOSE [id number] 07:47:34 Test Item Value Reference Range Interpretation Comments POC-GLUCOSE METER 175 mg/dL 70-110 H : TESTED A T [facility] 6720 (BEAKER) (test code = [facility], 1538) [address]: Molasses Preparer/Techni kate ID = [id number] for Bobbi Lozada BASIC METABOLIC [id number] 05:34:08 Test Item Value Reference Range Interpretation Comments SODIUM (BEAKER) 135 meq/L 136-145 L (test code = 381) POTASSIUM 3.9 meq/L 3.5-5.1 (BEAKER) (test code = 379) CHLORIDE (BEAKER) 95 meq/L 98-107 L (test code = 382) CO2 (BEAKER) 30 meq/L 22-29 H (test code = 355) BLOOD UREA 28 mg/dL 7-21 H NITROGEN (BEAKER) (test code = 354) CREATININE 1.82 mg/dL 0.57-1.25 H (BEAKER) (test code = 358) GLUCOSE RANDOM 152 mg/dL 70-105 H (BEAKER) (test code = 652) CALCIUM (BEAKER) 9.7 mg/dL 8.4-10.2 (test code = 697) EGFR (BEAKER) 30 Interpretatio n of eGFR (test code = mL/min/1.73 values Stage De scription 1092) sq m Result G1 Jade l or high >=90 G2 Mildly decreased 60-89 G3a Mildl y to moderately 45-5 9 G3b Moderately to s everely 30-44 G4 Sever ly decreased 15-29 G5 Kidney failure <15Repo rted eGFR is based on the CKD-EPI 2020 equation t hat does not use a race coefficientEsti mated GFR is not as accur ate as Creatinine Brenda maher in predicting glom erular filtration rate . Estimated GFR is not appl icable for dialysis patien ts Molasses Preparer ID - RAMILA [id number] 05:34:08 Test Item Value Reference Range Interpretation Comments MAGNESIUM (BEAKER) (test code = 2.1 mg/dL 1.6-2.6 627) Molasses Preparer ID - RAMILA GCBC (HEMOGRAM ONLY)2023-03-21 04:58:49 Test Item Value Reference Range Interpretation Comments WHITE BLOOD CELL COUNT (BEAKER) 8.4 K/ L 3.5-10.5 (test code = 775) RED BLOOD CELL COUNT (BEAKER) 4.12 M/ L 3.93-5.22 (test code = 761) HEMOGLOBIN (BEAKER) (test code = 13.0 GM/DL 11.2-15.7 410) HEMATOCRIT (BEAKER) (test code = 40.8 % 34.1-44.9 411) MEAN CORPUSCULAR VOLUME (BEAKER) 99 fL 79-95 H (test code = 753) MEAN CORPUSCULAR HEMOGLOBIN 31.6 pg 25.6-32.2 (BEAKER) (test code = 751) MEAN CORPUSCULAR HEMOGLOBIN CONC 31.9 GM/DL 32.2-35.5 L (BEAKER) (test code = 752) RED CELL DISTRIBUTION WIDTH 13.3 % 11.7-14.4 (BEAKER) (test code = 412) PLATELET COUNT (BEAKER) (test 239 K/CU MM 150-450 code = 756) MEAN PLATELET VOLUME (BEAKER) 10.4 fL 9.4-12.3 (test code = 754) NUCLEATED RED BLOOD CELLS 0 /100 WBC 0-0 (BEAKER) (test code = 413) POCT-GLUCOSE [id number] 22:06:46 Test Item Value Reference Range Interpretation Comments POC-GLUCOSE METER 195 mg/dL 70-110 H : TESTED A T [facility] 6720 (BEAKER) (test code = [place], 1538) [address]: Molasses Preparer/Techni kate ID = [id number] for SUSU OROURKE BASIC METABOLIC [id number] 17:42:41 Test Item Value Reference Range Interpretation Comments SODIUM (BEAKER) 135 meq/L 136-145 L (test code = 381) POTASSIUM 4.0 meq/L 3.5-5.1 (BEAKER) (test code = 379) CHLORIDE (BEAKER) 92 meq/L 98-107 L (test code = 382) CO2 (BEAKER) 30 meq/L 22-29 H (test code = 355) BLOOD UREA 30 mg/dL 7-21 H NITROGEN (BEAKER) (test code = 354) CREATININE 1.93 mg/dL 0.57-1.25 H (BEAKER) (test code = 358) GLUCOSE RANDOM 173 mg/dL 70-105 H (BEAKER) (test code = 652) CALCIUM (BEAKER) 10.3 mg/dL 8.4-10.2 H (test code = 697) EGFR (BEAKER) 28 Interpretatio n of eGFR (test code = mL/min/1.73 values Stage De scription 1092) sq m Result G1 Jade l or high >=90 G2 Mildly decreased 60-89 G3a Mildl y to moderately 45-5 9 G3b Moderately to s everely 30-44 G4 Severl y decreased 15-29 G5 Kidney failure <15Reported eGF R is based on the CKD-EPI 2020 equation that d oes not use a race coefficientEsti mated GFR is not as accur ate as Creatinine Brenda gunnar in predicting glom erular filtration rate . Estimated GFR is not appl icable for dialysis patien ts Molasses Preparer ID - JUDYPOCT-GLUCOSE [id number] 16:13:27 Test Item Value Reference Range Interpretation Comments POC-GLUCOSE METER 193 mg/dL 70-110 H : TESTED A T [facility] 6720 (BEAKER) (test code = [facility], 1538) [address]: Molasses Preparer/Techni kate ID = [id number] for Bobbi Lozada POCT-GLUCOSE [id number] 11:56:21 Test Item Value Reference Range Interpretation Comments POC-GLUCOSE METER 175 mg/dL 70-110 H : TESTED A T [facility] 6720 (BEAKER) (test code = [facility], 1538) [address]: Molasses Preparer/Techni kate ID = [id number] for Bobbi Lozada POCT-GLUCOSE [id number] 08:03:43 Test Item Value Reference Range Interpretation Comments POC-GLUCOSE METER 148 mg/dL 70-110 H : TESTED A T [facility] 6720 (BEAKER) (test code = [place], 1538) [address]: Molasses Preparer/Techni kate ID = [id number] for Bobbi Lozada BASIC METABOLIC [id number] 06:26:05 Test Item Value Reference Range Interpretation Comments SODIUM (BEAKER) 133 meq/L 136-145 L (test code = 381) POTASSIUM 3.7 meq/L 3.5-5.1 (BEAKER) (test code = 379) CHLORIDE (BEAKER) 90 meq/L 98-107 L (test code = 382) CO2 (BEAKER) 34 meq/L 22-29 H (test code = 355) BLOOD UREA 29 mg/dL 7-21 H NITROGEN (BEAKER) (test code = 354) CREATININE 1.92 mg/dL 0.57-1.25 H (BEAKER) (test code = 358) GLUCOSE RANDOM 171 mg/dL 70-105 H (BEAKER) (test code = 652) CALCIUM (BEAKER) 9.5 mg/dL 8.4-10.2 (test code = 697) EGFR (BEAKER) 29 Interpretatio n of eGFR (test code = mL/min/1.73 values Stage De scription 1092) sq m Result G1 Jade l or high >=90 G2 Mildly decreased 60-89 G3a Mildl y to moderately 45-5 9 G3b Moderately to s everely 30-44 G4 Severl y decreased 15-29 G5 Kidney failure <15Reported eGF R is based on the CKD-EPI 2021 equation that d oes not use a race coefficientEsti mated GFR is not as accur ate as Creatinine Brenda maher in predicting glom erular filtration rate . Estimated GFR is not appl icable for dialysis patien ts Molasses Preparer ID - [id number] 06:10:39 Test Item Value Reference Range Interpretation Comments MAGNESIUM (BEAKER) (test code = 2.1 mg/dL 1.6-2.6 627) Molasses Preparer ID - ADMINPOCT-GLUCOSE [id number] 23:53:20 Test Item Value Reference Range Interpretation Comments POC-GLUCOSE METER 178 mg/dL 70-110 H : TESTED A T [facility] 6720 (BEAKER) (test code = MENA Clemons [facility], 1538) [address]: Molasses Preparer/Techni kate ID = [id number] for TANGELA Kitchen BASIC METABOLIC [id number] 16:49:22 Test Item Value Reference Range Interpretation Comments SODIUM (BEAKER) 135 meq/L 136-145 L (test code = 381) POTASSIUM 4.4 meq/L 3.5-5.1 (BEAKER) (test code = 379) CHLORIDE (BEAKER) 92 meq/L 98-107 L (test code = 382) CO2 (BEAKER) 32 meq/L 22-29 H (test code = 355) BLOOD UREA 28 mg/dL 7-21 H NITROGEN (BEAKER) (test code = 354) CREATININE 1.98 mg/dL 0.57-1.25 H (BEAKER) (test code = 358) GLUCOSE RANDOM 164 mg/dL 70-105 H (BEAKER) (test code = 652) CALCIUM (BEAKER) 10.1 mg/dL 8.4-10.2 (test code = 697) EGFR (BEAKER) 28 Interpretatio n of eGFR (test code = mL/min/1.73 values Stage De scription 1092) sq m Result G1 Jade l or high >=90 G2 Mildly decreased 60-89 G3a Mildl y to moderately 45-5 9 G3b Moderately to s everely 30-44 G4 Severl y decreased 15-29 G5 Kidney failure <15Reported eGF R is based on the CKD-EPI 1 equation that d oes not use a race coefficientEsti mated GFR is not as accur ate as Creatinine Brenda maher in predicting glom erular filtration rate . Estimated GFR is not appl icable for dialysis patien ts Molasses Preparer ID - JSPOCT-GLUCOSE [id number] 11:50:19 Test Item Value Reference Range Interpretation Comments POC-GLUCOSE METER 168 mg/dL 70-110 H : TESTED A T [facility] 6720 (BEAKER) (test code TERESITA [facility], = 1538) [address]: Molasses Preparer/Techni kate ID = [id number] for Cuong (contract), [facility] on POCT-GLUCOSE [id number] 07:36:28 Test Item Value Reference Range Interpretation Comments POC-GLUCOSE METER 124 mg/dL 70-110 H : TESTED A T [facility] 6720 (BEAKER) (test code TERESITA [facility], = 1538) [address]: Molasses Preparer/Techni kate ID = [id number] for Cuong (contract), [place] on[place] BASIC METABOLIC [id number] 05:07:47 Test Item Value Reference Range Interpretation Comments SODIUM (BEAKER) 138 meq/L 136-145 (test code = 381) POTASSIUM 4.2 meq/L 3.5-5.1 (BEAKER) (test code = 379) CHLORIDE (BEAKER) 96 meq/L 98-107 L (test code = 382) CO2 (BEAKER) 32 meq/L 22-29 H (test code = 355) BLOOD UREA 28 mg/dL 7-21 H NITROGEN (BEAKER) (test code = 354) CREATININE 1.78 mg/dL 0.57-1.25 H (BEAKER) (test code = 358) GLUCOSE RANDOM 121 mg/dL 70-105 H (BEAKER) (test code = 652) CALCIUM (BEAKER) 9.8 mg/dL 8.4-10.2 (test code = 697) EGFR (BEAKER) 31 Interpretatio n of eGFR (test code = mL/min/1.73 values Stage De scription 1092) sq m Result G1 Jade l or high >=90 G2 Mildly decreased 60-89 G3a Mildl y to moderately 45-5 9 G3b Moderately to s everely 30-44 G4 Sever ly decreased 15-29 G5 Kidney failure <15Repo rted eGFR is based on the CKD-EPI 2021 equation t hat does not use a race coefficientEsti mated GFR is not as accur ate as Creatinine Brenda maher in predicting glom erular filtration rate . Estimated GFR is not appl icable for dialysis patien ts Molasses Preparer ID - [id number] 05:07:47 Test Item Value Reference Range Interpretation Comments MAGNESIUM (BEAKER) (test code = 2.0 mg/dL 1.6-2.6 627) Molasses Preparer ID - marioPOCT-GLUCOSE [id number] 21:22:39 Test Item Value Reference Range Interpretation Comments POC-GLUCOSE METER 150 mg/dL 70-110 H : [facility] (test code = [facility], 1538) [address]: Molasses Preparer/Techni kate ID = [id number] for Praneeth Lozada POCT-GLUCOSE [id number] 17:31:26 Test Item Value Reference Range Interpretation Comments POC-GLUCOSE METER 179 mg/dL 70-110 H : Notified RN/MD: ([facility] (test code = TESTED AT [place] [id number] 1538) [facility], [address]: Molasses Preparer/Techni kate ID = [id number] for AN WHITLEY SILVA POCT-GLUCOSE [id number] 13:20:47 Test Item Value Reference Range Interpretation Comments POC-GLUCOSE METER 176 mg/dL 70-110 H : [facility] ([facility] (test code = [facility], 1538) [address]: Molasses Preparer/Techni kate ID = [id number] for AN WHITLEY SILVA B-TYPE NATRIURETIC FACTOR (BNP)2023-03-18 12:20:49 Test Item Value Reference Range Interpretation Comments B-TYPE NATRIURETIC PEPTIDE ([facility] 637 pg/mL 0-100 H (test code = 700) Molasses Preparer ID - ADMINPOCT-GLUCOSE [id number] 08:04:13 Test Item Value Reference Range Interpretation Comments POC-GLUCOSE METER 121 mg/dL 70-110 H : TESTED A T [facility] 6720 ([facility] (test code = [facility], 153) [address]: Molasses Preparer/Techni kate ID = [id number] for AN WHITLEY SILVA BASIC METABOLIC [id number] 04:53:40 Test Item Value Reference Range Interpretation Comments SODIUM (BEAKER) 136 meq/L 136-145 (test code = 381) POTASSIUM 4.9 meq/L 3.5-5.1 (BEAKER) (test code = 379) CHLORIDE (BEAKER) 98 meq/L 98-107 (test code = 382) CO2 (BEAKER) 28 meq/L 22-29 (test code = 355) BLOOD UREA 28 mg/dL 7-21 H NITROGEN (BEAKER) (test code = 354) CREATININE 1.75 mg/dL 0.57-1.25 H (BEAKER) (test code = 358) GLUCOSE RANDOM 100 mg/dL 70-105 (BEAKER) (test code = 652) CALCIUM (BEAKER) 9.7 mg/dL 8.4-10.2 (test code = 697) EGFR (BEAKER) 32 Interpretatio n of eGFR (test code = mL/min/1.73 values Stage De scription 1092) sq m Result G1 Jade l or high >=90 G2 Mildly decreased 60-89 G3a Mildl y to moderately 45-5 9 G3b Moderately to s everely 30-44 G4 Severl y decreased 15-29 G5 Kidney failure <15Reported eGF R is based on the CKD-EPI 2020 equation that d oes not use a race coefficientEsti mated GFR is not as accur ate as Creatinine Brenda gunnar in predicting glom erular filtration rate . Estimated GFR is not appl icable for dialysis patien ts Molasses Preparer ID - [id number] 04:53:40 Test Item Value Reference Range Interpretation Comments MAGNESIUM (BEAKER) (test code = 1.9 mg/dL 1.6-2.6 627) Molasses Preparer ID - ADMINCBC (HEMOGRAM ONLY)2023-03-18 04:32:37 Test Item Value Reference Range Interpretation Comments WHITE BLOOD CELL COUNT (BEAKER) 8.2 K/ L 3.5-10.5 (test code = 775) RED BLOOD CELL COUNT (BEAKER) 4.00 M/ L 3.93-5.22 (test code = 761) HEMOGLOBIN (BEAKER) (test code = 12.7 GM/DL 11.2-15.7 410) HEMATOCRIT (BEAKER) (test code = 39.5 % 34.1-44.9 411) MEAN CORPUSCULAR VOLUME (BEAKER) 99 fL 79-95 H (test code = 753) MEAN CORPUSCULAR HEMOGLOBIN 31.8 pg 25.6-32.2 (BEAKER) (test code = 751) MEAN CORPUSCULAR HEMOGLOBIN CONC 32.2 GM/DL 32.2-35.5 (BEAKER) (test code = 752) RED CELL DISTRIBUTION WIDTH 13.7 % 11.7-14.4 (BEAKER) (test code = 412) PLATELET COUNT (BEAKER) (test 262 K/CU MM 150-450 code = 756) MEAN PLATELET VOLUME (BEAKER) 10.9 fL 9.4-12.3 (test code = 754) NUCLEATED RED BLOOD CELLS 0 /100 WBC 0-0 ([facility] (test code = 413) POCT-GLUCOSE [id number] 21:49:26 Test Item Value Reference Range Interpretation Comments POC-GLUCOSE METER 139 mg/dL 70-110 H : [facility] ([facility] (test code = [facility], 153) [address]: Molasses Preparer/Techni kate ID = [id number] for TANGELA Kitchen POCT-GLUCOSE [id number] 18:03:00 Test Item Value Reference Range Interpretation Comments POC-GLUCOSE METER 155 mg/dL 70-110 H : [facility]ified RN/MD: [facility] (test code = TESTED AT [place] [address]37) [facility], [address]: Molasses Preparer/Techni kate ID = [id number] for AN WHITLEY SILVA POCT-GLUCOSE [id number] 11:34:28 Test Item Value Reference Range Interpretation Comments POC-GLUCOSE METER 160 mg/dL 70-110 H : Notified RN/MD: (RAQUEL) (test code = TESTED AT [place] [address] 1537) [facility], [address]: Molasses Preparer/Techni kate ID = [id number] for AN WHITLEY SILVA POCT-GLUCOSE [id number] 07:50:44 Test Item Value Reference Range Interpretation Comments POC-GLUCOSE METER 131 mg/dL 70-110 H : TESTED A T [facility] 6720 ([facility] (test code = [facility], 153) [address]: Molasses Preparer/Techni kate ID = [id number] for AN WHITLEY SILVA BASIC METABOLIC [id number] 06:13:40 Test Item Value Reference Range Interpretation Comments SODIUM (BEAKER) 138 meq/L 136-145 (test code = 381) POTASSIUM 5.0 meq/L 3.5-5.1 (BEAKER) (test code = 379) CHLORIDE (BEAKER) 100 meq/L 98-107 (test code = 382) CO2 (BEAKER) 30 meq/L 22-29 H (test code = 355) BLOOD UREA 27 mg/dL 7-21 H NITROGEN (BEAKER) (test code = 354) CREATININE 1.77 mg/dL 0.57-1.25 H (BEAKER) (test code = 358) GLUCOSE RANDOM 132 mg/dL 70-105 H (BEAKER) (test code = 652) CALCIUM (BEAKER) 9.7 mg/dL 8.4-10.2 (test code = 697) EGFR (BEAKER) 32 Interpretatio n of eGFR (test code = mL/min/1.73 values Stage De scription 1092) sq m Result G1 Jade l or high >=90 G2 Mildly decreased 60-89 G3a Mildl y to moderately 45-5 9 G3b Moderately to s everely 30-44 G4 Severl y decreased 15-29 G5 Kidney failure <15Reported eGF R is based on the CKD-EPI 2020 equation that d oes not use a race coefficientEsti mated GFR is not as accur ate as Creatinine Brenda gunnar in predicting glom erular filtration rate . Estimated GFR is not appl icable for dialysis patien ts Molasses Preparer ID - RAMILA [id number] 06:13:40 Test Item Value Reference Range Interpretation Comments MAGNESIUM (BEAKER) (test code = 2.0 mg/dL 1.6-2.6 627) Molasses Preparer ID - RAMILA GPOCT-GLUCOSE [id number] 21:06:45 Test Item Value Reference Range Interpretation Comments POC-GLUCOSE METER 177 mg/dL 70-110 H : TESTED A T [facility] ([place]) (test code = [facility], 153) [address]: Molasses Preparer/Techni kate ID = [id number] for EMILY QUINTERO HERLINDA POCT-GLUCOSE [id number] 16:59:00 Test Item Value Reference Range Interpretation Comments POC-GLUCOSE METER 147 mg/dL 70-110 H : TESTED A T [facility] ([place]) (test code = [facility], 1538) [address]: Molasses Preparer/Techni kate ID = [id number] for Zonia carrillo Mimi POCT-GLUCOSE [id number] 11:21:37 Test Item Value Reference Range Interpretation Comments POC-GLUCOSE METER 202 mg/dL 70-110 H : TESTED A T [facility] (test code = [facility] [place], 1538) [address]: Molasses Preparer/Techni kate ID = [id number] for We Brandy henriquez POCT-GLUCOSE [id number] 07:56:25 Test Item Value Reference Range Interpretation Comments POC-GLUCOSE METER 205 mg/dL 70-110 H : TESTED A T [facility] (BEAKER) (test code = [place], 1538) [address]: Molasses Preparer/Techni kate ID = [id number] for We Brandy henriquez [id number] 05:24:56 Test Item Value Reference Range Interpretation Comments MAGNESIUM (BEAKER) (test code = 2.1 mg/dL 1.6-2.6 627) Molasses Preparer ID - MARCOBASIC METABOLIC [id number] 05:24:55 Test Item Value Reference Range Interpretation Comments SODIUM (BEAKER) 139 meq/L 136-145 (test code = 381) POTASSIUM 4.4 meq/L 3.5-5.1 (BEAKER) (test code = 379) CHLORIDE (BEAKER) 98 meq/L 98-107 (test code = 382) CO2 (BEAKER) 31 meq/L 22-29 H (test code = 355) BLOOD UREA 29 mg/dL 7-21 H NITROGEN (BEAKER) (test code = 354) CREATININE 1.74 mg/dL 0.57-1.25 H (BEAKER) (test code = 358) GLUCOSE RANDOM 183 mg/dL 70-105 H (BEAKER) (test code = 652) CALCIUM (BEAKER) 9.8 mg/dL 8.4-10.2 (test code = 697) EGFR (BEAKER) 32 Interpretati on of eGFR (test code = mL/min/1.73 values Stage De scription 1092) sq m Result G1 Jade l or high >=90 G2 Mildly decreased 60-89 G3a Mildl y to moderately 45-5 9 G3b Moderately to s everely 30-44 G4 Severl y decreased 15-29 G5 Kidney failure <15Reported eGF R is based on the CKD-EPI 1 equation that d oes not use a race coefficientEsti mated GFR is not as accur ate as Creatinine Brenda gunnar in predicting glom erular filtration rate . Estimated GFR is not appl icable for dialysis patien ts Molasses Preparer ID - MARCOPOCT-GLUCOSE [id number] 21:27:31 Test Item Value Reference Range Interpretation Comments POC-GLUCOSE METER 180 mg/dL 70-110 H : TESTED A T [facility] 6720 (BEAKER) (test code = [facility], 1538) [address]: Molasses Preparer/Techni kate ID = [id number] for Malinda Haile POCT-GLUCOSE [id number] 17:56:46 Test Item Value Reference Range Interpretation Comments POC-GLUCOSE METER 202 mg/dL 70-110 H : TESTED A T [facility] 6720 (BEAKER) (test code = [facility], 1538) [address]: Molasses Preparer/Techni kate ID = [id number] for NAIMA CRYSTAL POCT-GLUCOSE [id number] 13:22:26 Test Item Value Reference Range Interpretation Comments POC-GLUCOSE METER 272 mg/dL 70-110 H : TESTED A T [facility] 6720 (BEAKER) (test code = [facility], 1538) [address]: Molasses Preparer/Techni kate ID = [id number] for NAIMA CRYSTAL POCT-GLUCOSE [id number] 08:22:48 Test Item Value Reference Range Interpretation Comments POC-GLUCOSE METER 197 mg/dL 70-110 H : TESTED A T [facility] 6720 (BEAKER) (test code = [facility], 1538) [address]: Molasses Preparer/Techni kate ID = [id number] for NAIMA CRYSTAL BASIC METABOLIC [id number] 04:26:11 Test Item Value Reference Range Interpretation Comments SODIUM (BEAKER) 138 meq/L 136-145 (test code = 381) POTASSIUM 3.9 meq/L 3.5-5.1 (BEAKER) (test code = 379) CHLORIDE (BEAKER) 97 meq/L 98-107 L (test code = 382) CO2 (BEAKER) 31 meq/L 22-29 H (test code = 355) BLOOD UREA 34 mg/dL 7-21 H NITROGEN (BEAKER) (test code = 354) CREATININE 1.95 mg/dL 0.57-1.25 H (BEAKER) (test code = 358) GLUCOSE RANDOM 206 mg/dL 70-105 H (BEAKER) (test code = 652) CALCIUM (BEAKER) 9.5 mg/dL 8.4-10.2 (test code = 697) EGFR (BEAKER) 28 Interpretatio n of eGFR (test code = mL/min/1.73 values Stage De scription 1092) sq m Result G1 Jade l or high >=90 G2 Mildly decreased 60-89 G3a Mildl y to moderately 45-5 9 G3b Moderately to s everely 30-44 G4 Severl y decreased 15-29 G5 Kidney failure <15Reported eGF R is based on the CKD-EPI 2020 equation that d oes not use a race coefficientEsti mated GFR is not as accur ate as Creatinine Brenda gunnar in predicting glom erular filtration rate . Estimated GFR is not appl icable for dialysis patien ts Molasses Preparer ID - MARCOCBC W/PLT COUNT & AUTO [id number] 04:04:24 Test Item Value Reference Range Interpretation Comments WHITE BLOOD CELL COUNT (BEAKER) 8.5 K/ L 3.5-10.5 (test code = 775) RED BLOOD CELL COUNT (BEAKER) 3.81 M/ L 3.93-5.22 L (test code = 761) HEMOGLOBIN (BEAKER) (test code = 12.3 GM/DL 11.2-15.7 410) HEMATOCRIT (BEAKER) (test code = 37.8 % 34.1-44.9 411) MEAN CORPUSCULAR VOLUME (BEAKER) 99 fL 79-95 H (test code = 753) MEAN CORPUSCULAR HEMOGLOBIN 32.3 pg 25.6-32.2 H (BEAKER) (test code = 751) MEAN CORPUSCULAR HEMOGLOBIN CONC 32.5 GM/DL 32.2-35.5 (BEAKER) (test code = 752) RED CELL DISTRIBUTION WIDTH 14.1 % 11.7-14.4 (BEAKER) (test code = 412) PLATELET COUNT (BEAKER) (test 233 K/CU MM 150-450 code = 756) MEAN PLATELET VOLUME (BEAKER) 10.7 fL 9.4-12.3 (test code = 754) NUCLEATED RED BLOOD CELLS 0 /100 WBC 0-0 (BEAKER) (test code = 413) NEUTROPHILS RELATIVE PERCENT 58 % (BEAKER) (test code = 429) LYMPHOCYTES RELATIVE PERCENT 30 % (BEAKER) (test code = 430) MONOCYTES RELATIVE PERCENT 9 % (BEAKER) (test code = 431) EOSINOPHILS RELATIVE PERCENT 2 % (BEAKER) (test code = 432) BASOPHILS RELATIVE PERCENT 1 % (BEAKER) (test code = 437) NEUTROPHILS ABSOLUTE COUNT 4.92 K/ L 1.56-6.13 (BEAKER) (test code = 670) LYMPHOCYTES ABSOLUTE COUNT 2.51 K/ L 1.18-3.74 (BEAKER) (test code = 414) MONOCYTES ABSOLUTE COUNT (BEAKER) 0.76 K/ L 0.24-0.36 H (test code = 415) EOSINOPHILS ABSOLUTE COUNT 0.18 K/ L 0.04-0.36 (BEAKER) (test code = 416) BASOPHILS ABSOLUTE COUNT (BEAKER) 0.07 K/ L 0.01-0.08 (test code = 417) IMMATURE GRANULOCYTES-RELATIVE 0.20 % 0.00-1.00 PERCENT (BEAKER) (test code = 2801) POCT-GLUCOSE [id number] 21:11:46 Test Item Value Reference Range Interpretation Comments POC-GLUCOSE METER 204 mg/dL 70-110 H : [facility] (test code = [facility], 153) [address]: Molasses Preparer/Techni kate ID = [id number] for Ts Malinda conway POCT-GLUCOSE [id number] 18:45:05 Test Item Value Reference Range Interpretation Comments POC-GLUCOSE METER 223 mg/dL 70-110 H : Notified RN/MD: ([facility] (test code = TESTED AT [place] [address] 153) [facility], [address]: Molasses Preparer/Techni kate ID = [id number] for AN WHITLEY SILVA POCT-GLUCOSE [id number] 12:23:39 Test Item Value Reference Range Interpretation Comments POC-GLUCOSE METER 175 mg/dL 70-110 H : [facility] ([facility] (test code = [facility], 153) [address]: Molasses Preparer/Techni kate ID = [id number] for AN WHITLEY SILVA POCT-GLUCOSE [id number] 07:37:40 Test Item Value Reference Range Interpretation Comments POC-GLUCOSE METER 161 mg/dL 70-110 H : [facility] ([facility] (test code = [facility], 1538) [address]: Molasses Preparer/Techni kate ID = [id number] for NAIMA CRYSTAL BASIC METABOLIC [id number] 06:11:37 Test Item Value Reference Range Interpretation Comments SODIUM (BEAKER) 136 meq/L 136-145 (test code = 381) POTASSIUM 3.4 meq/L 3.5-5.1 L (BEAKER) (test code = 379) CHLORIDE (BEAKER) 93 meq/L 98-107 L (test code = 382) CO2 (BEAKER) 31 meq/L 22-29 H (test code = 355) BLOOD UREA 37 mg/dL 7-21 H NITROGEN (BEAKER) (test code = 354) CREATININE 1.91 mg/dL 0.57-1.25 H (BEAKER) (test code = 358) GLUCOSE RANDOM 159 mg/dL 70-105 H (BEAKER) (test code = 652) CALCIUM (BEAKER) 9.3 mg/dL 8.4-10.2 (test code = 697) EGFR (BEAKER) 29 Interpretatio n of eGFR (test code = mL/min/1.73 values Stage D escription 1092) sq m Result G1 Jade l or high >=90 G2 Mildly decreased 60-89 G3a Mildl y to moderately 45-5 9 G3b Moderately to s everely 30-44 G4 Severl y decreased 15-29 G5 Kidney failure <15Reported eGF R is based on the CKD-EPI 2020 equation that d oes not use a race coefficientEsti mated GFR is not as accur ate as Creatinine Brenda maher in predicting glom erular filtration rate . Estimated GFR is not appl icable for dialysis patien ts Molasses Preparer ID - [id number] 06:10:07 Test Item Value Reference Range Interpretation Comments MAGNESIUM (BEAKER) (test code = 2.3 mg/dL 1.6-2.6 627) Molasses Preparer ID - BSCBC W/PLT COUNT & AUTO [id number] 05:35:38 Test Item Value Reference Range Interpretation Comments WHITE BLOOD CELL COUNT (BEAKER) 7.1 K/ L 3.5-10.5 (test code = 775) RED BLOOD CELL COUNT (BEAKER) 3.96 M/ L 3.93-5.22 (test code = 761) HEMOGLOBIN (BEAKER) (test code = 12.6 GM/DL 11.2-15.7 410) HEMATOCRIT (BEAKER) (test code = 38.4 % 34.1-44.9 411) MEAN CORPUSCULAR VOLUME (BEAKER) 97 fL 79-95 H (test code = 753) MEAN CORPUSCULAR HEMOGLOBIN 31.8 pg 25.6-32.2 (BEAKER) (test code = 751) MEAN CORPUSCULAR HEMOGLOBIN CONC 32.8 GM/DL 32.2-35.5 (BEAKER) (test code = 752) RED CELL DISTRIBUTION WIDTH 14.3 % 11.7-14.4 (BEAKER) (test code = 412) PLATELET COUNT (BEAKER) (test 245 K/CU MM 150-450 code = 756) MEAN PLATELET VOLUME (BEAKER) 10.6 fL 9.4-12.3 (test code = 754) NUCLEATED RED BLOOD CELLS 0 /100 WBC 0-0 (BEAKER) (test code = 413) NEUTROPHILS RELATIVE PERCENT 57 % (BEAKER) (test code = 429) LYMPHOCYTES RELATIVE PERCENT 30 % (BEAKER) (test code = 430) MONOCYTES RELATIVE PERCENT 10 % (BEAKER) (test code = 431) EOSINOPHILS RELATIVE PERCENT 2 % (BEAKER) (test code = 432) BASOPHILS RELATIVE PERCENT 1 % (BEAKER) (test code = 437) NEUTROPHILS ABSOLUTE COUNT 4.05 K/ L 1.56-6.13 (BEAKER) (test code = 670) LYMPHOCYTES ABSOLUTE COUNT 2.15 K/ L 1.18-3.74 (BEAKER) (test code = 414) MONOCYTES ABSOLUTE COUNT (BEAKER) 0.69 K/ L 0.24-0.36 H (test code = 415) EOSINOPHILS ABSOLUTE COUNT 0.13 K/ L 0.04-0.36 (BEAKER) (test code = 416) BASOPHILS ABSOLUTE COUNT (BEAKER) 0.05 K/ L 0.01-0.08 (test code = 417) IMMATURE GRANULOCYTES-RELATIVE 0.10 % 0.00-1.00 PERCENT (BEAKER) (test code = 2801) POCT-GLUCOSE [id number] 20:51:47 Test Item Value Reference Range Interpretation Comments POC-GLUCOSE METER 200 mg/dL 70-110 H : TESTED A T [facility] 6720 (BEAKER) (test code = MENA Clemons [facility], 1538) [address]: Molasses Preparer/Techni kate ID = [id number] for Ts Malinda conway POCT-GLUCOSE [id number] 16:50:37 Test Item Value Reference Range Interpretation Comments POC-GLUCOSE METER 201 mg/dL 70-110 H : Notified RN/MD: (BEAKER) (test code = TESTED AT [facility] 6720 1538) TERES[facility], [address]: Molasses Preparer/Techni kate ID = [id number] for WHITLEY COFFEY CBC W/PLT COUNT & AUTO [id number] 13:23:35 Test Item Value Reference Range Interpretation Comments WHITE BLOOD CELL COUNT (BEAKER) 7.2 K/ L 3.5-10.5 (test code = 775) RED BLOOD CELL COUNT (BEAKER) 3.88 M/ L 3.93-5.22 L (test code = 761) HEMOGLOBIN (BEAKER) (test code = 12.3 GM/DL 11.2-15.7 410) HEMATOCRIT (BEAKER) (test code = 37.3 % 34.1-44.9 411) MEAN CORPUSCULAR VOLUME (BEAKER) 96 fL 79-95 H (test code = 753) MEAN CORPUSCULAR HEMOGLOBIN 31.7 pg 25.6-32.2 (BEAKER) (test code = 751) MEAN CORPUSCULAR HEMOGLOBIN CONC 33.0 GM/DL 32.2-35.5 (BEAKER) (test code = 752) RED CELL DISTRIBUTION WIDTH 14.3 % 11.7-14.4 (BEAKER) (test code = 412) PLATELET COUNT (BEAKER) (test 243 K/CU MM 150-450 code = 756) MEAN PLATELET VOLUME (BEAKER) 10.4 fL 9.4-12.3 (test code = 754) NUCLEATED RED BLOOD CELLS 0 /100 WBC 0-0 (BEAKER) (test code = 413) NEUTROPHILS RELATIVE PERCENT 59 % (BEAKER) (test code = 429) LYMPHOCYTES RELATIVE PERCENT 28 % (BEAKER) (test code = 430) MONOCYTES RELATIVE PERCENT 10 % (BEAKER) (test code = 431) EOSINOPHILS RELATIVE PERCENT 2 % (BEAKER) (test code = 432) BASOPHILS RELATIVE PERCENT 1 % (BEAKER) (test code = 437) NEUTROPHILS ABSOLUTE COUNT 4.25 K/ L 1.56-6.13 (BEAKER) (test code = 670) LYMPHOCYTES ABSOLUTE COUNT 1.99 K/ L 1.18-3.74 (BEAKER) (test code = 414) MONOCYTES ABSOLUTE COUNT (BEAKER) 0.71 K/ L 0.24-0.36 H (test code = 415) EOSINOPHILS ABSOLUTE COUNT 0.16 K/ L 0.04-0.36 (BEAKER) (test code = 416) BASOPHILS ABSOLUTE COUNT (BEAKER) 0.05 K/ L 0.01-0.08 (test code = 417) IMMATURE GRANULOCYTES-RELATIVE 0.10 % 0.00-1.00 PERCENT (BEAKER) (test code = 2801) POCT-GLUCOSE [id number] 12:36:59 Test Item Value Reference Range Interpretation Comments POC-GLUCOSE METER 213 mg/dL 70-110 H : Notified RN/MD: ([facility]) (test code = TESTED AT [facility] 5182 5758) [facility], [address]: Molasses Preparer/Techni kate ID = [id number] for AN WHITLEY SILVA PUL PERF IMAGING, [id number] 11:43:00Unlisted Reason for Exam - Click Yes and Enter Reason Below->No [facility] 1960 Sex: FFINAL REPORT PROCEDURE: LUNG SCAN - perfusion only CPT CODE: 34027 INDICATION: Nonspecific chest pain PROTOCOL: 5.4 mCi of Tc-99m MAA was injected intravenously, and static perfusion images were obtained in multiple projections. Ventilation imaging was not performed due to COVID precautions. FINDINGS: Tracer distribution is mildly irregular in the lower lung good. There is mild prominence of the left oblique fissure. IMPRESSION: 1. Very low probability of acute pulmonary embolization.2. Mild parenchymal and/or pleural changes.3. There is no significant change from the study of 04/11/2021. Signed: Dean Molina MDReport Verified Date/Time: 03/13/2023 11:43:29 Electronically signedby: DEAN MOLINA MD on 03/13/2023 11:43 AMPROCALCITONIN 2023-03-13 10:49:19 Test Item Value Reference Range Interpretation Comments PROCALCITONIN (BEAKER) (test code 0.07 ng/mL <0.05 H = 3036) SEPSIS RISK (ng/mL)Low: 0.05-0.50Intermediate: 0.51-2.00High: >=2.01BASIC METABOLIC [id number] 10:38:03 Test Item Value Reference Range Interpretation Comments SODIUM (BEAKER) 135 meq/L 136-145 L (test code = 381) POTASSIUM 3.3 meq/L 3.5-5.1 L (BEAKER) (test code = 379) CHLORIDE (BEAKER) 91 meq/L 98-107 L (test code = 382) CO2 (BEAKER) 32 meq/L 22-29 H (test code = 355) BLOOD UREA 37 mg/dL 7-21 H NITROGEN (BEAKER) (test code = 354) CREATININE 2.03 mg/dL 0.57-1.25 H (BEAKER) (test code = 358) GLUCOSE RANDOM 185 mg/dL 70-105 H (BEAKER) (test code = 652) CALCIUM (BEAKER) 9.7 mg/dL 8.4-10.2 (test code = 697) EGFR (BEAKER) 27 Interpretatio n of eGFR (test code = mL/min/1.73 values Stage De scription 1092) sq m Result G1 Jade l or high >=90 G2 Mildly decreased 60-89 G3a Mildl y to moderately 45-5 9 G3b Moderately to s everely 30-44 G4 Severl y decreased 15-29 G5 Kidney failure <15Reported eGF R is based on the CKD-EPI 2020 equation that d oes not use a race coefficientEsti mated GFR is not as accur ate as Creatinine Brenda gunnar in predicting glom erular filtration rate . Estimated GFR is not appl icable for dialysis patien ts Molasses Preparer ID - MMC-REACTIVE [id number] 10:31:41 Test Item Value Reference Range Interpretation Comments C-REACTIVE PROTEIN (BEAKER) (test 5.95 mg/dL 0.00-0.50 H code = 676) Molasses Preparer ID - MMHEPATIC FUNCTION [id number] 10:31:40 Test Item Value Reference Range Interpretation Comments TOTAL PROTEIN (BEAKER) (test code = 6.9 gm/dL 6.0-8.3 770) ALBUMIN (BEAKER) (test code = 1145) 3.6 g/dL 3.5-5.0 BILIRUBIN TOTAL (BEAKER) (test code 1.2 mg/dL 0.2-1.2 = 377) BILIRUBIN DIRECT (BEAKER) (test 0.5 mg/dL 0.1-0.5 code = 706) ALKALINE PHOSPHATASE (BEAKER) (test 98 U/L 40-150 code = 346) AST (SGOT) (BEAKER) (test code = 26 U/L 5-34 353) ALT (SGPT) (BEAKER) (test code = 16 U/L 6-55 347) Molasses Preparer ID - [id number] 10:27:59 Test Item Value Reference Range Interpretation Comments D-DIMER QUANTITATIVE (BEAKER) 1.91 MG/L FEU <0.50 H (test code = 671) Intended Use: The [...] exclusion of thrombosis is within 95-100% range. HEMOGLOBIN [id number] 09:02:21 Test Item Value Reference Range Interpretation Comments HEMOGLOBIN A1C 10.6 % See_Comment H [Automated m essage] ELECTROPHORESIS (BEAKER) The system which (test code = 3811) generated this result transmitted ref erence range: <=5.6%. The reference range was not used to int erpret this result as normal/abnormal . "The A1c is measured using a NGSP-certified method. HbA1c value equal to or greater than 6.5% as thediagnosis cutoff for diabetes. An HbA1c value of 5.7- 6.4% indicates increased risk for diabetes (prediabetes)."Molasses Preparer ID - ADMPOCT- GLUCOSE [id number] 08:55:22 Test Item Value Reference Range Interpretation Comments POC-GLUCOSE METER 175 mg/dL 70-110 H : TESTED A T [facility] 6720 (BEAKER) (test code = [facility], 1538) [address]: Molasses Preparer/Techni kate ID = [id number] for WHITLEY COFFEY POCT-GLUCOSE [id number] 21:51:30 Test Item Value Reference Range Interpretation Comments POC-GLUCOSE METER 185 mg/dL 70-110 H : TESTED A T [facility] 6720 (BEAKER) (test code = [facility], 1538) [address]: Molasses Preparer/Techni kate ID = [id number] for AVA SORENSON POCT-GLUCOSE [id number] 19:20:32 Test Item Value Reference Range Interpretation Comments POC-GLUCOSE METER 198 mg/dL 70-110 H : TESTED A T [facility] 6720 (BEAKER) (test code = [facility], 1538) [address]: Molasses Preparer/Techni kate ID = [id number] for Ec by (contract)Kayla lsa HIGH SENSITIVITY TROPONIN [id number] 13:40:19 Test Item Value Reference Range Interpretation Comments HIGH SENSITIVITY TROPONIN I (test 15 pg/ml <=17 code = 6587017) Molasses Preparer ID - Will TUB OPERATOR STAT High Sensitivity Troponin-I results should be used in conjunction with other diagnostic information such as ECG, clinical observations and information, and patientsymptoms to aid in the diagnosis of CO. B-TYPE NATRIURETIC FACTOR (BNP)2023-03-12 13:38:20 Test Item Value Reference Range Interpretation Comments B-TYPE NATRIURETIC PEPTIDE (BEAKER) 360 pg/mL 0-100 H (test code = 700) Molasses Preparer ID - JAZMINERAD, CHEST, 1 VIEW, NON [id number] 13:36:00Reason for exam:- >SHORTNESS OF BREATHShould this be performed at the bedside?->Yes [facility] 1960 Sex: FFINAL REPORT INDICATION: SHORTNESS OF BREATH COMPARISON: None TECHNIQUE: Single frontal view of the chest. FINDINGS: Lungs and pleura: Clear lungs. No effusion.Heart and mediastinum: Normal heart size. Unremarkable mediastinal contours.Osseous structures: No acute abnormality.Other: None. IMPRESSION: No acute intrathoracic abnormality. Signed: [facility] Verified Date/Time: 03/12/2023 13:36:31 Reading Location: [address] Reading Room BASI METABOLIC [id number] 13:32:35 Test Item Value Reference Range Interpretation Comments SODIUM (BEAKER) 133 meq/L 136-145 L (test code = 381) POTASSIUM 3.1 meq/L 3.5-5.1 L (BEAKER) (test code = 379) CHLORIDE (BEAKER) 85 meq/L 98-107 L (test code = 382) CO2 (BEAKER) 38 meq/L 22-29 H (test code = 355) BLOOD UREA 39 mg/dL 7-21 H NITROGEN (BEAKER) (test code = 354) CREATININE 2.25 mg/dL 0.57-1.25 H (BEAKER) (test code = 358) GLUCOSE RANDOM 283 mg/dL 70-105 H (BEAKER) (test code = 652) CALCIUM (BEAKER) 9.5 mg/dL 8.4-10.2 (test code = 697) EGFR (BEAKER) 24 Interpretatio n of eGFR (test code = mL/min/1.73 values Stage De scription 1092) sq m Result G1 Jade l or high >=90 G2 Mildly decreased 60-89 G3a Mildl y to moderately 45-5 9 G3b Moderately to s everely 30-44 G4 Severl y decreased 15-29 G5 Kidney failure <15Reported eGF R is based on the CKD-EPI 2020 equation that d oes not use a race coefficientEsti mated GFR is not as accur ate as Creatinine Brenda gunnar in predicting glom erular filtration rate . Estimated GFR is not appl icable for dialysis patien ts Molasses Preparer ID - [id number] 13:32:03 Test Item Value Reference Range Interpretation Comments MAGNESIUM (BEAKER) (test code = 2.3 mg/dL 1.6-2.6 627) Molasses Preparer ID - MARIOLACTIC ACID, [id number] 13:27:54 Test Item Value Reference Range Interpretation Comments LACTATE BLOOD VENOUS 1.86 mmol/L 0.50-2.00 Specime n slightly (2) (BEAKER) (test hemolyzed code = 3052) Molasses Preparer ID - MARIOBLOOD GAS, [id number] 13:18:47 Test Item Value Reference Range Interpretation Comments PH VENOUS (BEAKER) (test code = 7.38 7.32-7.42 701) PCO2 VENOUS (BEAKER) (test code = 63 mm Hg 41-51 H 755) PO2 VENOUS (BEAKER) (test code = 34 mm Hg 25-40 702) O2 SATURATION VENOUS (BEAKER) 61.6 % 40.0-70.0 (test code = 703) HCO3 VENOUS (BEAKER) (test code = 37 mmol/L 21-29 H 705) BASE EXCESS VENOUS (BEAKER) (test 9.2 mmol/L -2.0-3.0 H code = 704) PATIENT TEMPERATURE (BEAKER) (test 37.0 code = 1818) FIO2 (BEAKER) (test code = 1819) 28.0 CBC W/PLT COUNT & AUTO [id number] 13:15:19 Test Item Value Reference Range Interpretation Comments WHITE BLOOD CELL COUNT (BEAKER) 8.3 K/ L 3.5-10.5 (test code = 775) RED BLOOD CELL COUNT (BEAKER) 4.11 M/ L 3.93-5.22 (test code = 761) HEMOGLOBIN (BEAKER) (test code = 13.4 GM/DL 11.2-15.7 410) HEMATOCRIT (BEAKER) (test code = 39.9 % 34.1-44.9 411) MEAN CORPUSCULAR VOLUME (BEAKER) 97 fL 79-95 H (test code = 753) MEAN CORPUSCULAR HEMOGLOBIN 32.6 pg 25.6-32.2 H (BEAKER) (test code = 751) MEAN CORPUSCULAR HEMOGLOBIN CONC 33.6 GM/DL 32.2-35.5 (BEAKER) (test code = 752) RED CELL DISTRIBUTION WIDTH 14.4 % 11.7-14.4 (BEAKER) (test code = 412) PLATELET COUNT (BEAKER) (test 252 K/CU MM 150-450 code = 756) MEAN PLATELET VOLUME (BEAKER) 10.4 fL 9.4-12.3 (test code = 754) NUCLEATED RED BLOOD CELLS 0 /100 WBC 0-0 (BEAKER) (test code = 413) NEUTROPHILS RELATIVE PERCENT 64 % (BEAKER) (test code = 429) LYMPHOCYTES RELATIVE PERCENT 25 % (BEAKER) (test code = 430) MONOCYTES RELATIVE PERCENT 8 % (BEAKER) (test code = 431) EOSINOPHILS RELATIVE PERCENT 1 % (BEAKER) (test code = 432) BASOPHILS RELATIVE PERCENT 1 % (BEAKER) (test code = 437) NEUTROPHILS ABSOLUTE COUNT 5.33 K/ L 1.56-6.13 (BEAKER) (test code = 670) LYMPHOCYTES ABSOLUTE COUNT 2.12 K/ L 1.18-3.74 (BEAKER) (test code = 414) MONOCYTES ABSOLUTE COUNT (BEAKER) 0.68 K/ L 0.24-0.36 H (test code = 415) EOSINOPHILS ABSOLUTE COUNT 0.11 K/ L 0.04-0.36 (BEAKER) (test code = 416) BASOPHILS ABSOLUTE COUNT (BEAKER) 0.06 K/ L 0.01-0.08 (test code = 417) IMMATURE GRANULOCYTES-RELATIVE 0.50 % 0.00-1.00 PERCENT (BEAKER) (test code = 2801) RAD, FOOT, MIN 3 VIEWS, [id number] 15:10:00Reason for exam:->[facility] : 1960 Sex: FFINAL REPORT RAD, FOOT, MIN 3 VIEWS, RIGHT HISTORY: FOOT PAIN COMPARISON: None IMPRESSION: Three radiographs of the right foot submitted for review 1.No acute osseous abnormality of theright foot. 2.Mild polyarticular degenerative changes most notable at the first metatarsophalangeal joint. Small plantar calcaneal enthesophyte3.No radiopaque foreign body. Vascular calcifications Signed: Tavon Head Verified Date/Time: 03/09/2023 15:10:01 SENSITIVITY TROPONIN [id number] 14:11:41 Test Item Value Reference Range Interpretation Comments HIGH SENSITIVITY TROPONIN I (test 17 pg/ml <=17 code = 8060902) Molasses Preparer ID - Vimal TUB OPERATOR STAT High Sensitivity Troponin-I results should be used in conjunction with other diagnostic information such as ECG, clinical observations and information, and patientsymptoms to aid in the diagnosis of CO. B-TYPE NATRIURETIC FACTOR (BNP)2023-03-09 14:11:02 Test Item Value Reference Range Interpretation Comments B-TYPE NATRIURETIC PEPTIDE (BEAKER) 107 pg/mL 0-100 H (test code = 700) Molasses Preparer ID - MARCOCOMPREHENSIVE METABOLIC [id number] 14:07:39 Test Item Value Reference Range Interpretation Comments TOTAL PROTEIN 7.1 gm/dL 6.0-8.3 Specimen sligh tly (BEAKER) (test hemolyzed code = 770) ALBUMIN (BEAKER) 3.7 g/dL 3.5-5.0 Specimen sl ightly (test code = 1145) hemolyzed ALKALINE 96 U/L 40-150 PHOSPHATASE (BEAKER) (test code = 346) BILIRUBIN TOTAL 1.3 mg/dL 0.2-1.2 H Specimen sli ghtly (BEAKER) (test hemolyzed code = 377) SODIUM (BEAKER) 131 meq/L 136-145 L (test code = 381) POTASSIUM (BEAKER) 3.0 meq/L 3.5-5.1 L Specimen slightly (test code = 379) hemolyzed CHLORIDE (BEAKER) 86 meq/L 98-107 L (test code = 382) CO2 (BEAKER) (test 31 meq/L 22-29 H code = 355) BLOOD UREA 35 mg/dL 7-21 H NITROGEN (BEAKER) (test code = 354) CREATININE 2.38 mg/dL 0.57-1.25 H Specimen slight ly (BEAKER) (test hemolyzed code = 358) GLUCOSE RANDOM 331 mg/dL 70-105 H (BEAKER) (test code = 652) CALCIUM (BEAKER) 9.4 mg/dL 8.4-10.2 (test code = 697) AST (SGOT) 27 U/L 5-34 Specimen slight ly (BEAKER) (test hemolyzed code = 353) ALT (SGPT) 19 U/L 6-55 Specimen slight ly (BEAKER) (test hemolyzed code = 347) EGFR (BEAKER) 22 Interpretatio n of eGFR (test code = 1092) mL/min/1.[address] age Description sq m Result G1 Jade l or high >=90 G2 Mildly decreased 60-89 G3a Mildl y to moderately 45-5 9 G3b Moderately to s everely 30-44 G4 Severl y decreased 15-29 G5 Kidney failure <15Reported eGF R is based on the CKD-EPI 2021 equation that d oes not use a race coefficientEsti mated GFR is not as accur ate as Creatinine Brenda maher in predicting glom erular filtration rate . Estimated GFR is not appl icable for dialysis patien ts Molasses Preparer ID - ARACELID, FOOT, MIN 3 VIEWS, [id number] 12:57:00Reason for exam:->FOOT PAIN [facility] : 1960 Sex: FFINAL REPORT RAD, FOOT, MIN 3 VIEWS, LEFT INDICATION: FOOT PAIN COMPARISON: None TECHNIQUE: AP, lateral and oblique radiographs of the left foot FINDINGS/IMPRESSION:No acute fracture ormalalignment Signed: Shani Valdes Verified Date/Time: 03/09/2023 12:57:29 Reading Location: [address] Reading Room CBC W/PLT COUNT & AUTO [id number] 12:28:36 Test Item Value Reference Range Interpretation Comments WHITE BLOOD CELL COUNT (BEAKER) 12.7 K/ L 3.5-10.5 H (test code = 775) RED BLOOD CELL COUNT (BEAKER) 4.56 M/ L 3.93-5.22 (test code = 761) HEMOGLOBIN (BEAKER) (test code = 14.4 GM/DL 11.2-15.7 410) HEMATOCRIT (BEAKER) (test code = 43.0 % 34.1-44.9 411) MEAN CORPUSCULAR VOLUME (BEAKER) 94 fL 79-95 (test code = 753) MEAN CORPUSCULAR HEMOGLOBIN 31.6 pg 25.6-32.2 (BEAKER) (test code = 751) MEAN CORPUSCULAR HEMOGLOBIN CONC 33.5 GM/DL 32.2-35.5 (BEAKER) (test code = 752) RED CELL DISTRIBUTION WIDTH 15.1 % 11.7-14.4 H (BEAKER) (test code = 412) PLATELET COUNT (BEAKER) (test 296 K/CU MM 150-450 code = 756) MEAN PLATELET VOLUME (BEAKER) 10.6 fL 9.4-12.3 (test code = 754) NUCLEATED RED BLOOD CELLS 0 /100 WBC 0-0 (BEAKER) (test code = 413) NEUTROPHILS RELATIVE PERCENT 68 % (BEAKER) (test code = 429) LYMPHOCYTES RELATIVE PERCENT 22 % (BEAKER) (test code = 430) MONOCYTES RELATIVE PERCENT 8 % (BEAKER) (test code = 431) EOSINOPHILS RELATIVE PERCENT 1 % (BEAKER) (test code = 432) BASOPHILS RELATIVE PERCENT 1 % (BEAKER) (test code = 437) NEUTROPHILS ABSOLUTE COUNT 8.59 K/ L 1.56-6.13 H (BEAKER) (test code = 670) LYMPHOCYTES ABSOLUTE COUNT 2.85 K/ L 1.18-3.74 (BEAKER) (test code = 414) MONOCYTES ABSOLUTE COUNT (BEAKER) 1.03 K/ L 0.24-0.36 H (test code = 415) EOSINOPHILS ABSOLUTE COUNT 0.12 K/ L 0.04-0.36 (BEAKER) (test code = 416) BASOPHILS ABSOLUTE COUNT (BEAKER) 0.07 K/ L 0.01-0.08 (test code = 417) IMMATURE GRANULOCYTES-RELATIVE 0.30 % 0.00-1.00 PERCENT (BEAKER) (test code = 2801) POC-Glucose [id number] 12:24:16 Test Item Value Reference Range Interpretation Comments POC-Glucose Meter (test 202 mg/dL 70-110 H : TE STED AT [facility] code = 1538) [address] [facility], 770 30: Molasses Preparer/Techni kate ID = [id number] for Daisy Cotter Lab Interpretation (test Abnormal code = 76656-5) [facility] [id number] 12:24:16 Test Item Value Reference Range Interpretation Comments POC-GLUCOSE METER 202 mg/dL 70-110 H : TESTED A T [facility] 6720 (BEAKER) (test code = MENA Clemons [facility], 1538) 44208: Molasses Preparer/Techni kate ID = [id number] for Nolvia Dias POCT-GLUCOSE [id number] 06:28:47 Test Item Value Reference Range Interpretation Comments POC-GLUCOSE METER 183 mg/dL 70-110 H : TESTED A T [facility] 6720 (BEAKER) (test code = MENA Clemons [facility], 153) 18968: Molasses Preparer/Techni kate ID = [id number] for Naima Tirado BASIC METABOLIC [id number] 05:39:57 Test Item Value Reference Range Interpretation Comments SODIUM (BEAKER) 136 meq/L 136-145 (test code = 381) POTASSIUM 3.9 meq/L 3.5-5.1 (BEAKER) (test code = 379) CHLORIDE (BEAKER) 100 meq/L 98-107 (test code = 382) CO2 (BEAKER) 23 meq/L 22-29 (test code = 355) BLOOD UREA 103 mg/dL 7-21 H NITROGEN (BEAKER) (test code = 354) CREATININE 2.03 mg/dL 0.57-1.25 H (BEAKER) (test code = 358) GLUCOSE RANDOM 186 mg/dL 70-105 H (BEAKER) (test code = 652) CALCIUM (BEAKER) 9.6 mg/dL 8.4-10.2 (test code = 697) EGFR (BEAKER) 27 Interpretatio n of eGFR (test code = mL/min/1.73 values Stage De scription 1092) sq m Result G1 Jade l or high >=90 G2 Mildly decreased 60-89 G3a Mildl y to moderately 45-5 9 G3b Moderately to s everely 30-44 G4 Severl y decreased 15-29 G5 Kidney failure <15Reported eGF R is based on the CKD-EPI 2020 equation that d oes not use a race coefficientEsti mated GFR is not as accur ate as Creatinine Brenda maher in predicting glom erular filtration rate . Estimated GFR is not appl icable for dialysis patien ts Molasses Preparer ID - PIAYA LPOCT-GLUCOSE [id number] 22:16:48 Test Item Value Reference Range Interpretation Comments POC-GLUCOSE METER 192 mg/dL 70-110 H : TESTED A T [facility] 6720 (BEAKER) (test code = MENA Clemons [facility], 153) 09293: Molasses Preparer/Techni kate ID = [id number] for Naima Tirado POCT-GLUCOSE [id number] 17:03:00 Test Item Value Reference Range Interpretation Comments POC-GLUCOSE METER 141 mg/dL 70-110 H : TESTED A T [facility] 6720 (BEAKER) (test code = MENA Clemons [facility], 1538) 66366: Molasses Preparer/Techni kate ID = [id number] for Preethi Blum 2D Echo W/Doppler(CW/PW/Color)2022-11-15 14:12:59Ejection FractionSLEH ECHO HEARTLAB MKCKESSON CPACommun[facility]ovisPOCT-GLUCOSE [id number] 11:22:28 Test Item Value Reference Range Interpretation Comments POC-GLUCOSE METER 219 mg/dL 70-110 H : TESTED A T [facility] 6720 (BEAKER) (test code = MENA Clemons [facility], 1538) 972[address]: Molasses Preparer/Techni kate ID = [id number] for Preethi Blum BASIC METABOLIC [id number] 09:56:16 Test Item Value Reference Range Interpretation Comments SODIUM (BEAKER) 135 meq/L 136-145 L (test code = 381) POTASSIUM 3.3 meq/L 3.5-5.1 L Specimen slight ly (BEAKER) (test hemolyzed code = 379) CHLORIDE (BEAKER) 95 meq/L 98-107 L (test code = 382) CO2 (BEAKER) 26 meq/L 22-29 (test code = 355) BLOOD UREA 111 mg/dL 7-21 H NITROGEN (BEAKER) (test code = 354) CREATININE 2.48 mg/dL 0.57-1.25 H Specimen slight ly (BEAKER) (test hemolyzed code = 358) GLUCOSE RANDOM 218 mg/dL 70-105 H (BEAKER) (test code = 652) CALCIUM (BEAKER) 9.9 mg/dL 8.4-10.2 (test code = 697) EGFR (BEAKER) 21 Interpretatio n of eGFR (test code = mL/min/1.73 values Stage De scription 1092) sq m Result G1 Jade l or high >=90 G2 Mildly decreased 60-89 G3a Mildl y to moderately 45-5 9 G3b Moderately to s everely 30-44 G4 Severl y decreased 15-29 G5 Kidney failure <15Reported eGF R is based on the CKD-EPI 2020 equation that d oes not use a race coefficientEsti mated GFR is not as accur ate as Creatinine Brenda gunnar in predicting glom erular filtration rate . Estimated GFR is not appl icable for dialysis patien ts Molasses Preparer ID - D WALKEROperator ID - D WALKERPOCT-GLUCOSE [id number] 06:49:15 Test Item Value Reference Range Interpretation Comments POC-GLUCOSE METER 165 mg/dL 70-110 H : TESTED A T [facility] 6720 (BEAKER) (test code [facility], = 1538) 60887: Molasses Preparer/Techni kate ID = [id number] for Maynard , Netta POCT-GLUCOSE [id number] 21:20:09 Test Item Value Reference Range Interpretation Comments POC-GLUCOSE METER 175 mg/dL 70-110 H : TESTED A T [facility] 6720 (BEAKER) (test code [facility], = 1538) 00718: Molasses Preparer/Techni kate ID = [id number] for Maynard , Netta POCT-GLUCOSE [id number] 16:51:04 Test Item Value Reference Range Interpretation Comments POC-GLUCOSE METER 179 mg/dL 70-110 H : TESTED A T [facility] 6720 (BEAKER) (test code = [facility], 1538) 72994: Molasses Preparer/Techni kate ID = [id number] for Blum, Colmar POCT-GLUCOSE [id number] 11:07:41 Test Item Value Reference Range Interpretation Comments POC-GLUCOSE METER 199 mg/dL 70-110 H : TESTED A T [facility] 6720 (BEAKER) (test code = [facility], 1538) 62870: Molasses Preparer/Techni kate ID = [id number] for Blum, Preethi POCT-GLUCOSE [id number] 06:48:15 Test Item Value Reference Range Interpretation Comments POC-GLUCOSE METER 223 mg/dL 70-110 H : TESTED A T [facility] 6720 (BEAKER) (test code [facility], = 1538) 79442: Molasses Preparer/Techni kate ID = [id number] for Maynard , Netta COMPREHENSIVE METABOLIC [id number] 05:56:06 Test Item Value Reference Range Interpretation Comments TOTAL PROTEIN 6.9 gm/dL 6.0-8.3 (BEAKER) (test code = 770) ALBUMIN (BEAKER) 3.7 g/dL 3.5-5.0 (test code = 1145) ALKALINE 89 U/L 40-150 PHOSPHATASE (BEAKER) (test code = 346) BILIRUBIN TOTAL 0.4 mg/dL 0.2-1.2 (BEAKER) (test code = 377) SODIUM (BEAKER) 136 meq/L 136-145 (test code = 381) POTASSIUM (BEAKER) 3.4 meq/L 3.5-5.1 L (test code = 379) CHLORIDE (BEAKER) 94 meq/L 98-107 L (test code = 382) CO2 (BEAKER) (test 26 meq/L 22-29 code = 355) BLOOD UREA 122 mg/dL 7-21 H NITROGEN (BEAKER) (test code = 354) CREATININE 2.68 mg/dL 0.57-1.25 H (BEAKER) (test code = 358) GLUCOSE RANDOM 259 mg/dL 70-105 H (BEAKER) (test code = 652) CALCIUM (BEAKER) 10.1 mg/dL 8.4-10.2 (test code = 697) AST (SGOT) 18 U/L 5-34 (BEAKER) (test code = 353) ALT (SGPT) 18 U/L 6-55 (BEAKER) (test code = 347) EGFR (BEAKER) 19 Interpretatio n of eGFR (test code = 1092) mL/min/1.[address] age Description sq m Result G1 Jade l or high >=90 G2 Mildly decreased 60-89 G3a Mildl y to moderately 45-5 9 G3b Moderately to s everely 30-44 G4 Severl y decreased 15-29 G5 Kidney failure <15Reported eGF R is based on the CKD-EPI 2020 equation that d oes not use a race coefficientEsti mated GFR is not as accur ate as Creatinine Brenda maher in predicting glom erular filtration rate . Estimated GFR is not appl icable for dialysis patien ts Molasses Preparer ID - MARCOOperator ID - [id number] 05:54:31 Test Item Value Reference Range Interpretation Comments PHOSPHORUS (BEAKER) (test code = 5.7 mg/dL 2.3-4.7 H 604) Molasses Preparer ID - MARCOCREATINE KINASE (CK)2022-11-14 05:54:31 Test Item Value Reference Range Interpretation Comments CREATINE KINASE TOTAL (BEAKER) (test 31 U/L 29-200 code = 380) Molasses Preparer ID - [id number] 05:54:30 Test Item Value Reference Range Interpretation Comments MAGNESIUM (BEAKER) (test code = 2.4 mg/dL 1.6-2.6 627) Molasses Preparer ID - CHRISTINOCALCIUM, [id number] 05:40:18 Test Item Value Reference Range Interpretation Comments CALCIUM IONIZED (BEAKER) (test 1.07 mmol/L 1.12-1.27 L code = 698) PH, BLOOD (BEAKER) (test code = 7.39 1810) CBC W/PLT COUNT & AUTO [id number] 05:32:16 Test Item Value Reference Range Interpretation Comments WHITE BLOOD CELL COUNT (BEAKER) 9.0 K/ L 3.5-10.5 (test code = 775) RED BLOOD CELL COUNT (BEAKER) 4.21 M/ L 3.93-5.22 (test code = 761) HEMOGLOBIN (BEAKER) (test code = 13.8 GM/DL 11.2-15.7 410) HEMATOCRIT (BEAKER) (test code = 40.3 % 34.1-44.9 411) MEAN CORPUSCULAR VOLUME (BEAKER) 96 fL 79-95 H (test code = 753) MEAN CORPUSCULAR HEMOGLOBIN 32.8 pg 25.6-32.2 H (BEAKER) (test code = 751) MEAN CORPUSCULAR HEMOGLOBIN CONC 34.2 GM/DL 32.2-35.5 (BEAKER) (test code = 752) RED CELL DISTRIBUTION WIDTH 12.4 % 11.7-14.4 (BEAKER) (test code = 412) PLATELET COUNT (BEAKER) (test 225 K/CU MM 150-450 code = 756) MEAN PLATELET VOLUME (BEAKER) 12.0 fL 9.4-12.3 (test code = 754) NUCLEATED RED BLOOD CELLS 0 /100 WBC 0-0 (BEAKER) (test code = 413) NEUTROPHILS RELATIVE PERCENT 58 % (BEAKER) (test code = 429) LYMPHOCYTES RELATIVE PERCENT 31 % (BEAKER) (test code = 430) MONOCYTES RELATIVE PERCENT 8 % (BEAKER) (test code = 431) EOSINOPHILS RELATIVE PERCENT 2 % (BEAKER) (test code = 432) BASOPHILS RELATIVE PERCENT 0 % (BEAKER) (test code = 437) NEUTROPHILS ABSOLUTE COUNT 5.24 K/ L 1.56-6.13 (BEAKER) (test code = 670) LYMPHOCYTES ABSOLUTE COUNT 2.81 K/ L 1.18-3.74 (BEAKER) (test code = 414) MONOCYTES ABSOLUTE COUNT (BEAKER) 0.73 K/ L 0.24-0.36 H (test code = 415) EOSINOPHILS ABSOLUTE COUNT 0.14 K/ L 0.04-0.36 (BEAKER) (test code = 416) BASOPHILS ABSOLUTE COUNT (BEAKER) 0.04 K/ L 0.01-0.08 (test code = 417) IMMATURE GRANULOCYTES-RELATIVE 0.20 % 0.00-1.00 PERCENT (BEAKER) (test code = 2801) POCT-GLUCOSE [id number] 01:39:21 Test Item Value Reference Range Interpretation Comments POC-GLUCOSE METER 286 mg/dL 70-110 H : TESTED A T [facility] 6720 (BEAKER) (test code = [facility], 1538) [address]: Molasses Preparer/Techni kate ID = [id number] for Ng analy, Tram Protein, random [id number] 23:22:35 Test Item Value Reference Range Interpretation Comments Protein, Urine (test code 0-14 = 2888-6) ANTHONY (test code = ANTHONY) Molasses Preparer CARRIE Narayanan Lab Interpretation (test Normal code = 79929-7) [facility] R[facility]OM [id number] 23:22:35 Test Item Value Reference Range Interpretation Comments PROTEIN, URINE (BEAKER) (test code = < mg/dL 0-14 1569) Molasses Preparer CARRIE GAMEZ LCreatinine, random [id number] 23:17:55 Test Item Value Reference Range Interpretation Comments Creatinine, Ur 72.4 mg/dL (test code = 2161-8) ANTHONY (test code = Reference Range: No ANTHONY) NormalsOperator CARRIE GAMEZ L [facility] HospitalCREATININE, RANDOM [id number] 23:17:55 Test Item Value Reference Range Interpretation Comments CREATININE URINE (BEAKER) (test 72.4 mg/dL code = 375) Reference Range: No NormalsOperator CARRIE GAMEZ RONEN/S, RENAL, [id number] 21:47:00Reason for exam:->DIZZINESS [facility]ENTER[facility]: [facility]LES : 1960 Sex: FFINAL REPORT EXAM/TECHNIQUE: Retroperitoneal ultrasound. INDICATION: Dizziness. COMPARISON: None. FINDINGS: Right kidney: The right kidney measures 8.5 x 4.7 x 5.8 cm. No hydronephrosis. Normal echotexture.Left kidney: The left kidney measures 10.4 x 5.6 x 5.0 cm. No hydronephrosis. Normal echotexture. Bladder: Unremarkable. Impression: No hydronephrosis. Signed: Emilio Puga MDReport Verified Date/Time: 11/13/2022 21:47:51 SARS-CoV2/Influenza/RSV RT-PCR 2022-11-13 21:00:13 Test Item Value Reference Interpretation Comments Range SARS-COV2/RT-PCR Negative Negative The SARS-Co V-2 (test code = target nucleic 17434-8) acids are not detected in [facility] specimen. Negat flash results do not preclude SARS-C oV-2 infection and should not be u sed as the sole bas is for patient management decisions. Nega tive results must be combined with clinical observations, patient history , and epidemiolog ical information. A false negative result may occu r if a specimen is improperly collected, transported or handled. This S ARS CoV-2 test is a rapid, real-elaina e RT-PCR test intended for e qualitative detection of nucleic acid fr om SARS-CoV-2 in a [facility]opharyngeal [facility]ab [facility] from individual s suspected of COVID-19 by the ir healthcare provider. Influenza A RT-PCR Negative Negative The Flu A target (test code = [place] 99247-1) not detected in this specimen. Influenza B RT-PCR Negative Negative The Flu B target (test code = [place] 33129-1) not detected in this specimen. RSV by RT-PCR (test Negative Negative The RSV target code = 77640-1) nucleic acid s are not detected in this specimen. ANTHONY (test code = The presence of ANTHONY) SARS-CoV-2/FLU/RSV viral nucleic acids cannot rule out co-infections or disease caused by other viral or bacterial pathogens. As with any molecular test, mutations within the target regions of the Xpert Xpress SARS-CoV-2/Flu/RSV test could affect primer and/or probe binding resulting in failure to detect the presence of virus or the virus being detected less predictably. False negative results may occur if the virus is present at levels below the analytical limit of detection in this specimen. This Xpert Xpress SARS-CoV-2/Flu/RSV test is a rapid, real-time RT-PCR test intended for the qualitative detection of nucleic acid from Xpert Xpress SARS-CoV-2/Flu/RSV in a nasopharyngeal swab specimen collected from individuals suspected of Xpert Xpress SARS-CoV-2/Flu/RSV by their healthcare provider. Results from [facility] Xpert Xpress SARS-CoV-2/Flu/RSV test should be correlated with the clinical history, epidemiological data, and other data available to the clinician evaluating the patient. Viral nucleic acid may persist in vivo, independent of virus viability. Detection of analyte target(s) does not imply that the corresponding virus(es) are infectious or are the causative agents for clinical symptoms. This test has not been Food and Drug Administration (FDA) cleared or approved and has been authorized by FDA under an Emergency Use Authorization (EUA). This EUA will be effective until the declaration that circumstances exist justifying the authorization of the emergency use of in vitro diagnostic tests for detection and/or diagnosis of COVID-19 is terminated under Section 564(b)(2) of the Act or the EUA is revoked under Section 564(g) of the Act. Fact Sheet for Healthcare Providers:https://w ww.[employer]/Docu ments/Xpert%20Xpres s%20SARS%20CoV-2/Fa ct%20Sheets/302-390 2%37MLRX-SJA-4%20HE ALTHCARE%20PROVIDER S%20FACT%20SHEET.pd f Fact Sheet for Healthcare Patients:https://ww w.[employer]/Docum ents/Xpert%20Xpress %20SARS%20Cov-2/Fac t%20Sheets/302-3801 %61KMRW-UFI-9%20PAT IENT%20FACT%20SHEET .pdf Lab Interpretation Normal (test code = 17750-7) [facility]/INFLUENZA/RSV [id number] 21:00:13 Test Item Value Reference Range Interpretation Comments SARS-COV2/RT-PCR Negative Negative The SARS-Co V-2 target (test code = nucleic acids a re not 6235484) detected in thi s specimen. Negat flash results do not preclude SARS-CoV-2 infe ction and should not be u sed as the sole basis for patient management deci sions. Negative result s must be combined with c linical observations, p atient history, and epidemiological information. A false negative result may occur if a specimen i s improperly jaycob ected, transported or handled. This SARS CoV-2 test is a rapid, real-elaina e RT-PCR test intended f or the qualitative det ection of nucleic acid fr om SARS-CoV-2 in a nasopharyngeal swab specimen collec lay[facility] from individuals monique pected of COVID-[facility] by [facility] ide. INFLUENZA A RT-PCR Negative Negative The Flu A target nucleic (test code = acids are not d etected in 1010779) this specimen. INFLUENZA B RT-PCR Negative Negative The Flu B target nucleic (test code = acids are not d etected in 0324088) this specimen. RSV RT-PCR (test Negative Negative The RSV tar get nucleic code = 5077665) acids are no t detected in this specimen. The presence of SARS-CoV-2/FLU/RSV viral nucleic acids cannot rule out co- infections or disease caused by other viral or bacterial pathogens. As with any molecular test, mutations within the target regions of the Xpert Xpress SARS-CoV-2/Flu/RSV test could affect primer and/or probe binding resulting in failure to detect the presence of virus or the virus being detected less predictably. False negative results may occur if the virus is present at levels below the analytical limit of detection in thisspecimen.This Xpert Xpress SARS-CoV-2/Flu/RSV test is a rapid, real-time RT-PCR test intended for the qualitative detection of nucleic acid from Xpert Xpress SARS-CoV-2/Flu/RSV in a nasopharyngeal swabspecimen collected from individuals suspected of Xpert Xpress SARS-CoV-2/Flu/RSV by their healthcareprovider. Results from [facility] Xpert Xpress SARS-CoV-2/Flu/RSV test should be correlated with the clinical history, epidemiological data, and other data available to the clinician evaluating the patient. Viral nucleic acid may persist in vivo, independent of virus viability. Detection of analyte target(s)does not imply that the corresponding virus(es) are infectious or are the causative agents for clinical symptoms.This test has not been Food and Drug Administration (FDA) cleared or approved and has been authorized by FDA under an Emergency Use Authorization (EUA). This EUA will be effective until thedeclaration that circumstances exist justifying the authorization of the emergency use of in vitro diagnostic tests for detection and/or diagnosis of COVID-19 is terminated under Section 564(b)(2) of the Act or the EUA is revoked under Section 564(g) of the Act.Fact Sheet for Healthcare Providers:https ://www.[employer]/Documents/Xpert%20Xpress%20SARS%20CoV-2/Fact%20Sheets/302-390 2%09BUGI-IAB-2%20HEALTHCARE%20PROVIDERS%20FACT%20SHEET.pdfFact Sheet for Healthcare Patients:https://www.[employer]/Docum ents/Xpert%20Xpress%20SARS%20Cov-2/Fact%20Sheets/3023801%10MESY-UAE-8%20PATIENT %20FACT%20SHEET.pdfBLOOD GAS, [id number] 19:28:27 Test Item Value Reference Range Interpretation Comments PH VENOUS (BEAKER) (test code = 7.41 7.32-7.42 701) PCO2 VENOUS (BEAKER) (test code = 50 mm Hg 41-51 755) PO2 VENOUS (BEAKER) (test code = 37 mm Hg 25-40 702) O2 SATURATION VENOUS (BEAKER) 70.3 % 40.0-70.0 H (test code = 703) HCO3 VENOUS (BEAKER) (test code = 31 mmol/L 21-29 H 705) BASE EXCESS VENOUS (BEAKER) (test 5.5 mmol/L -2.0-3.0 H code = 704) PATIENT TEMPERATURE (BEAKER) (test 37.0 code = 1818) FIO2 (BEAKER) (test code = 1819) 21.0 KETONE, [id number] 19:24:07 Test Item Value Reference Range Interpretation Comments KETONES, BLOOD (BEAKER) (test code 0.1 mmol/L <0.4 = 1103) ECG/EKG [id number] 18:19:20 Test Item Value Reference Range Interpretation Comments ANTHONY (test code = ANTHONY) Steffanie Puente MD 11/13/2022 7:52 PMECG/EKG Interpretation Date/Time: 11/13/2022 6:19 PMPerformed by: Steffanie Puente MDAuthorized by: Steffanie Puente MD The ECG is interpreted as sinus rhythm. Abnormal conduction noted: left bundle branch block.ST segments normal. T waves normal. [place] is left. Clinical Impression: abnormal ECGECG reviewed and does not meet STEMI criteria. Patient tolerance: patient tolerated the procedure well with no immediate complications Lab Interpretation Abnormal (test code = 17564-9) [facility]inal[facility]/Microscopic + Reflex to Culture 2022-11-13 15:35:18 Test Item Value Reference Range Interpretation Comments Color, UA (test code Light Yellow = 5778-6) Clarity, UA (test Clear code = 5767-9) Specific [place], UA 1.013 1.001-1.035 (test code = 5811-5) pH, UA (test code = 6.0 5.0-8.0 5803-2) Protein, UA (test Negative Negative code = 70326-5) Glucose, UA (test 300 mg/dL Negative A code = 365) Ketones, UA (test Negative Negative code = 2514-8) Bilirubin, UA (test Negative Negative code = 65667-7) Blood, UA (test code Negative Negative = 87003-2) Nitrite, UA (test Negative Negative code = 5802-4) Leukocytes, UA (test Small Negative A code = 5799-2) Urobilinogen, UA 0.2 0.2-1.0 (test code = 37177-1) RBC, UA (test code = 1 See_Comment [Autom ated 87934-0) message] The system which generated this result transmit layne reference range : /HPF. The reference range was not used to interpret this result as normal/abnormal . WBC, UA (test code = 2 See_Comment [Autom ated 5821-4) message] The system which generated this result transmit layne reference range : /HPF. The reference range was not used to interpret this result as normal/abnormal . Squam Epithel, UA 9 See_Comment [Automate d (test code = 27382-6) messag e] The system which generated this result transmit layne reference range : /HPF. The reference range was not used to interpret this result as normal/abnormal . Specimen Source (test code = 2795) ANTHONY (test code = ANTHONY) Molasses Preparer ID - [auto]Molasses Preparer ID - tech Lab Interpretation Abnormal (test code = 53568-6) [facility]/ REFLEX URINE [id number] 15:35:18 Test Item Value Reference Range Interpretation Comments COLOR (BEAKER) (test code = 470) Light Yellow CLARITY (BEAKER) (test code = Clear 469) SPECIFIC GRAVITY UA (BEAKER) 1.013 1.001-1.035 (test code = 468) PH UA (BEAKER) (test code = 467) 6.0 5.0-8.0 PROTEIN UA (BEAKER) (test code = Negative Negative 464) GLUCOSE UA (BEAKER) (test code = 300 mg/dL Negative A 365) KETONES UA (BEAKER) (test code = Negative Negative 371) BILIRUBIN UA (BEAKER) (test code Negative Negative = 462) BLOOD UA (BEAKER) (test code = Negative Negative 461) NITRITE UA (BEAKER) (test code = Negative Negative 465) LEUKOCYTE ESTERASE UA (BEAKER) Small Negative A (test code = 466) UROBILINOGEN UA (BEAKER) (test 0.2 0.2-1.0 code = 463) RBC UA (BEAKER) (test code = 1 /HPF 519) WBC UA (BEAKER) (test code = 2 /HPF 520) SQUAMOUS EPITHELIAL (BEAKER) 9 /HPF (test code = 516) SOURCE(BEAKER) (test code = 2795) Molasses Preparer ID - [auto]Molasses Preparer ID - techCOMPREHENSIVE METABOLIC [id number] 14:03:30 Test Item Value Reference Range Interpretation Comments TOTAL PROTEIN 7.6 gm/dL 6.0-8.3 Specimen moder ately (BEAKER) (test hemolyzed code = 770) ALBUMIN (BEAKER) 3.9 g/dL 3.5-5.0 Specimen mo derately (test code = 1145) hemolyzed ALKALINE 90 U/L 40-150 PHOSPHATASE (BEAKER) (test code = 346) BILIRUBIN TOTAL 0.5 mg/dL 0.2-1.2 Specimen mod erately (BEAKER) (test hemolyzed code = 377) SODIUM (BEAKER) 132 meq/L 136-145 L (test code = 381) POTASSIUM (BEAKER) 4.9 meq/L 3.5-5.1 Specimen moderately (test code = 379) hemolyzed CHLORIDE (BEAKER) 94 meq/L 98-107 L (test code = 382) CO2 (BEAKER) (test 20 meq/L 22-29 L code = 355) BLOOD UREA 121 mg/dL 7-21 H NITROGEN (BEAKER) (test code = 354) CREATININE 2.85 mg/dL 0.57-1.25 H Specimen modera tely (BEAKER) (test hemolyzed code = 358) GLUCOSE RANDOM 304 mg/dL 70-105 H (BEAKER) (test code = 652) CALCIUM (BEAKER) 10.0 mg/dL 8.4-10.2 (test code = 697) AST (SGOT) 32 U/L 5-34 Specimen modera tely (BEAKER) (test hemolyzed code = 353) ALT (SGPT) 19 U/L 6-55 Specimen modera tely (BEAKER) (test hemolyzed code = 347) EGFR (BEAKER) 18 Interpretatio n of eGFR (test code = 1092) mL/min/1.[address] age Description sq m Result G1 Jade l or high >=90 G2 Mildly decreased 60-89 G3a Mildl y to moderately 45-5 9 G3b Moderately to s everely 30-44 G4 Sever ly decreased 15-29 G5 Kidney failure <15Repo rted eGFR is based on the CKD-EPI 2020 equation t hat does not use a race coefficientEsti mated GFR is not as accur ate as Creatinine Brenda gunnar in predicting glom erular filtration rate . Estimated GFR is not appl icable for dialysis patien ts Molasses Preparer ID - MARCOOperator ID - [id number] 14:03:19 Test Item Value Reference Range Interpretation Comments MAGNESIUM (BEAKER) 2.4 mg/dL 1.6-2.6 Specimen moderately (test code = 627) hemolyzed Molasses Preparer ID - [id number] 14:03:19 Test Item Value Reference Range Interpretation Comments PHOSPHORUS (BEAKER) 5.4 mg/dL 2.3-4.7 H Specimen moderately (test code = 604) hemolyzed Molasses Preparer ID - CHRISTINOB-TYPE NATRIURETIC FACTOR (BNP)2022-11-13 14:01:56 Test Item Value Reference Range Interpretation Comments B-TYPE NATRIURETIC PEPTIDE (BEAKER) 71 pg/mL 0-100 (test code = 700) Molasses Preparer ID - CHRISTINOHIGH SENSITIVITY TROPONIN [id number] 14:01:33 Test Item Value Reference Range Interpretation Comments HIGH SENSITIVITY 8 pg/ml See_Comment [Automated message] TROPONIN I (test code = The system which 6599741) generated this result transmitted ref erence range: <=17. Th e reference range was not used to interpr et this result as normal/abnormal . Molasses Preparer ID - CHRISTINOThgracie TUB OPERATOR STAT High Sensitivity Troponin-I results should be used in conjunction with other diagnostic information such as ECG, clinical observations and information, and patientsymptoms to aid in the diagnosis of CO. CBC W/PLT COUNT & AUTO [id number] 13:40:28 Test Item Value Reference Range Interpretation Comments WHITE BLOOD CELL COUNT (BEAKER) 9.1 K/ L 3.5-10.5 (test code = 775) RED BLOOD CELL COUNT (BEAKER) 3.68 M/ L 3.93-5.22 L (test code = 761) HEMOGLOBIN (BEAKER) (test code = 12.1 GM/DL 11.2-15.7 410) HEMATOCRIT (BEAKER) (test code = 34.9 % 34.1-44.9 411) MEAN CORPUSCULAR VOLUME (BEAKER) 95 fL 79-95 (test code = 753) MEAN CORPUSCULAR HEMOGLOBIN 32.9 pg 25.6-32.2 H (BEAKER) (test code = 751) MEAN CORPUSCULAR HEMOGLOBIN CONC 34.7 GM/DL 32.2-35.5 (BEAKER) (test code = 752) RED CELL DISTRIBUTION WIDTH 12.4 % 11.7-14.4 (BEAKER) (test code = 412) PLATELET COUNT (BEAKER) (test 205 K/CU MM 150-450 code = 756) MEAN PLATELET VOLUME (BEAKER) 11.6 fL 9.4-12.3 (test code = 754) NUCLEATED RED BLOOD CELLS 0 /100 WBC 0-0 (BEAKER) (test code = 413) NEUTROPHILS RELATIVE PERCENT 67 % (BEAKER) (test code = 429) LYMPHOCYTES RELATIVE PERCENT 24 % (BEAKER) (test code = 430) MONOCYTES RELATIVE PERCENT 7 % (BEAKER) (test code = 431) EOSINOPHILS RELATIVE PERCENT 2 % (BEAKER) (test code = 432) BASOPHILS RELATIVE PERCENT 1 % (BEAKER) (test code = 437) NEUTROPHILS ABSOLUTE COUNT 6.10 K/ L 1.56-6.13 (BEAKER) (test code = 670) LYMPHOCYTES ABSOLUTE COUNT 2.13 K/ L 1.18-3.74 (BEAKER) (test code = 414) MONOCYTES ABSOLUTE COUNT (BEAKER) 0.61 K/ L 0.24-0.36 H (test code = 415) EOSINOPHILS ABSOLUTE COUNT 0.15 K/ L 0.04-0.36 (BEAKER) (test code = 416) BASOPHILS ABSOLUTE COUNT (BEAKER) 0.05 K/ L 0.01-0.08 (test code = 417) IMMATURE GRANULOCYTES-RELATIVE 0.30 % 0.00-1.00 PERCENT (BEAKER) (test code = 2801) Comprehensive metabolic [id number] 23:40:00 Test Item Value Reference Interpretation Comments Range Glucose (test code 104 mg/dL 65-99 H Fasting reference = 2345-7) interval For so toribio without known diabetes, a glu cose valuebetween 10 0 and 125 mg/dL is consistent withprediabetes and should be confi rmed with afollow-up test. BUN (test code = 33 mg/dL 7-25 H 3094-0) Creatinine (test 1.58 mg/dL 0.50-1.05 H code = 2160-0) eGFR (test code = 36 See_Comment L The eGFR i s based on 8257) the CKD-EPI 202 1 equation. To calculate the n ew eGFR from a pre vious Creatinine or Cystatin Cresul t, go to [email or web address] rg/professional s/kdo qi/[email or web address] ator [Automated mess age] The system [employer] generated this result transmit layne reference range : > OR = 60 mL/min/1.73m2. The reference range was not used to interpret this result as normal/abnormal . BUN/creatinine 21 See_Comment [Automated m essage] ratio (test code = The [employer] which 3097-3) generated this result transmit layne reference range : 6 - 22 (calc). The reference range was not used to interpret this result as normal/abnormal . Sodium (test code = 142 mmol/L 508-628 6574-2) Potassium (test 4.7 mmol/L 3.5-5.3 code = 2823-3) Chloride (test code 102 mmol/L 98-110 = 2075-0) CO2 (test code = 31 mmol/L 20-32 2027-9) Calcium (test code 9.6 mg/dL 8.6-10.4 = 04614-4) Protein (test code 6.7 g/dL 6.1-8.1 = 2885-2) Albumin, S (test 3.8 g/dL 3.6-5.1 code = 1751-7) Globulin, total 2.9 See_Comment [Automated message] (test code = The system [employer] 99624-6) generated this result transmit layne reference range : 1.9 - 3.7 g/dL (vidhya c). The reference r yamileth was not used to interpret this result as normal/abnormal . Albumin/globulin 1.3 See_Comment [Automated message] ratio (test code = The [employer] which 1759-0) generated this result transmit layne reference range : 1.0 - 2.5 (calc). T he reference range was not used to interpret this result as normal/abnormal . Total bilirubin 0.6 mg/dL 0.2-1.2 (test code = 1975-2) Alkaline 94 U/L 37-153 phosphatase (test code = 6768-6) AST (test code = 16 U/L 10-35 1920-8) ALT (test code = 24 U/L 6-29 1742-6) ANTHONY (test code = FASTING:YES ANTHONY) FASTING: YES RAC (test code = Performing RAC) Organization Information: Site ID: [facility] Name: [facility] Address: [address] [place] [id number] Director: Franco Gerardo Lab Interpretation Abnormal (test code = 01742-3) [facility] natriuretic [id number] 23:40:00 Test Item Value Reference Interpretation Comments Range BNP (test code = 209 pg/mL See_Comment [place] [address]-9) with age in the generalpopulati on with the highes t values seen inindividuals g reater than 75 years o f age.Reference: J. Am. Jaycob. Cardiol. 2002; 40:976-982. [Automated mess age] The system ic h generated this result transmitted ref erence range: <=100. T he reference range was not used to int erpret this result as normal/abnormal . ANTHONY (test code = FASTING:YES ANTHONY) FASTING: YES RAC (test code = Performing RAC) Organization Information: Site ID: [facility] Name: [facility] Address: [address] [place] [id number] Director: Franco Gerardo Lab Interpretation Abnormal (test code = 03436-1) [facility] [id number] 23:40:00 Test Item Value Reference Range Interpretation Comments WBC (test code = 7.1 See_Comment [Automated 0790-2) message] The system which generated this result transmit layne reference range : 3.8 - 10.8 Thousand/uL. Th e reference range was not used to interpret this result as normal/abnormal . RBC (test code = 4.37 See_Comment [Automated 179-8) message] The system which generated this result transmit layne reference range : 3.80 - 5.10 Million/uL. The reference range was not used to interpret this result as normal/abnormal . HGB (test code = 14.4 g/dL 11.7-15.5 718-7) HCT (test code = 42.1 % 35.0-45.0 4544-3) MCV (test code = 96.3 fL 80.0-100.0 787-2) MCH (test code = 33.0 pg 27.0-33.0 785-6) MCHC (test code 34.2 g/dL 32.0-36.0 = 786-4) RDW (test code = 14.7 % 11.0-15.0 788-0) Platelet count 239 See_Comment [Automated (test code = message] The 777-3) system which generated this result transmit layne reference range : 140 - 400 Thousand/uL. Th e reference range was not used to interpret this result as normal/abnormal . MPV (test code = 10.0 fL 7.5-12.5 776-5) ANTHONY (test code = FASTING:YES FASTING: ANTHONY) YES RAC (test code = Performing RAC) Organization Information: Site ID: [facility] Address: [address] [place] [phone] Director: Franco Gerardo [facility] [id number] 12:38:24 Test Item Value Reference Range Interpretation Comments HEMOGLOBIN A1C 7.5 % See_Comment H [Automated m essage] ELECTROPHORESIS ([place]) The system which (test code = 3811) generated this result transmitted ref erence range: <=5.6%. The reference range was not used to int erpret this result as normal/abnormal . "The A1c is measured using a NGSP-certified method. HbA1c value equal to or greater than 6.5% as thediagnosis cutoff for diabetes. An HbA1c value of 5.7- 6.4% indicates increased risk for diabetes (prediabetes)."Molasses Preparer ID - ADM TSH/FREE T4 IF [id number] 12:27:05 Test Item Value Reference Range Interpretation Comments THYROID STIMULATING HORMONE 3.432 uIU/mL 0.350-4.940 ([place]) (test code = 772) Molasses Preparer ID - DBRAD, SHOULDER, COMPLETE (MIN 2 VIEWS), [id number] 12:26:00 Reason for Exam:->left shoulder pain [facility] CENTERName: AME PEOPLES : 1960 Sex: FFINAL REPORT CLINICAL HISTORY: left shoulder pain TECHNIQUE: Three views of the leftshoulder COMPARISON: None FINDINGS: No acute fracture or malalignment. No radiopaque foreign body inthe soft tissues. No significant soft tissues swelling. IMPRESSION: No acute fracture or malalignment. Signed: Kate Ayoub MDReport Verified Date/Time: 04/03/2022 12:26:55 Reading Location: [facility] Reading Room COMPREHENSIVE METABOLIC [id number] 12:07:37 Test Item Value Reference Range Interpretation Comments TOTAL PROTEIN 7.1 gm/dL 6.0-8.3 (BEAKER) (test code = 770) ALBUMIN (BEAKER) 4.0 g/dL 3.5-5.0 (test code = 1145) ALKALINE PHOSPHATASE 156 U/L 40-150 H (BEAKER) (test code = 346) BILIRUBIN TOTAL 0.9 mg/dL 0.2-1.2 (BEAKER) (test code = 377) SODIUM (BEAKER) (test 139 meq/L 136-145 code = 381) POTASSIUM (BEAKER) 4.2 meq/L 3.5-5.1 (test code = 379) CHLORIDE (BEAKER) 98 meq/L 98-107 (test code = 382) CO2 (BEAKER) (test 32 meq/L 22-29 H code = 355) BLOOD UREA NITROGEN 30 mg/dL 7-21 H (BEAKER) (test code = 354) CREATININE (BEAKER) 1.69 mg/dL 0.57-1.25 H (test code = 358) GLUCOSE RANDOM 187 mg/dL 70-105 H (BEAKER) (test code = 652) CALCIUM (BEAKER) 9.3 mg/dL 8.4-10.2 (test code = 697) AST (SGOT) (BEAKER) 11 U/L 5-34 (test code = 353) ALT (SGPT) (BEAKER) 10 U/L 6-55 (test code = 347) EGFR (BEAKER) (test 30 mL/min/1.73 ESTIMA LAYNE GFR IS code = 1092) sq m NOT ACCURATE CREATININE CLEARANCE IN PREDICTING GLOMERULAR FILTRATION RATE . ESTIMATED GFR I S NOT APPLICABLE FOR DIALYSIS PATIEN TS. Molasses Preparer ID - DBURIC [id number] 12:07:37 Test Item Value Reference Range Interpretation Comments URIC ACID (BEAKER) (test code = 10.1 mg/dL 2.6-7.2 H 773) Molasses Preparer ID - DBCBC W/PLT COUNT & AUTO [id number] 11:45:09 Test Item Value Reference Range Interpretation Comments WHITE BLOOD CELL COUNT (BEAKER) 6.2 K/ L 3.5-10.5 (test code = 775) RED BLOOD CELL COUNT (BEAKER) 4.09 M/ L 3.93-5.22 (test code = 761) HEMOGLOBIN (BEAKER) (test code = 11.9 GM/DL 11.2-15.7 410) HEMATOCRIT (BEAKER) (test code = 38.7 % 34.1-44.9 411) MEAN CORPUSCULAR VOLUME (BEAKER) 94.6 fL 79.4-94.8 (test code = 753) MEAN CORPUSCULAR HEMOGLOBIN 29.1 pg 25.6-32.2 (BEAKER) (test code = 751) MEAN CORPUSCULAR HEMOGLOBIN CONC 30.7 GM/DL 32.2-35.5 L (BEAKER) (test code = 752) RED CELL DISTRIBUTION WIDTH 13.2 % 11.7-14.4 (BEAKER) (test code = 412) PLATELET COUNT (BEAKER) (test 181 K/CU MM 150-450 code = 756) MEAN PLATELET VOLUME (BEAKER) 10.4 fL 9.4-12.3 (test code = 754) NUCLEATED RED BLOOD CELLS 0 /100 WBC 0-0 (BEAKER) (test code = 413) NEUTROPHILS RELATIVE PERCENT 65 % (BEAKER) (test code = 429) LYMPHOCYTES RELATIVE PERCENT 25 % (BEAKER) (test code = 430) MONOCYTES RELATIVE PERCENT 6 % (BEAKER) (test code = 431) EOSINOPHILS RELATIVE PERCENT 3 % (BEAKER) (test code = 432) BASOPHILS RELATIVE PERCENT 0 % (BEAKER) (test code = 437) NEUTROPHILS ABSOLUTE COUNT 3.98 K/ L 1.56-6.13 (BEAKER) (test code = 670) LYMPHOCYTES ABSOLUTE COUNT 1.55 K/ L 1.18-3.74 (BEAKER) (test code = 414) MONOCYTES ABSOLUTE COUNT (BEAKER) 0.38 K/ L 0.24-0.36 H (test code = 415) EOSINOPHILS ABSOLUTE COUNT 0.21 K/ L 0.04-0.36 (BEAKER) (test code = 416) BASOPHILS ABSOLUTE COUNT (BEAKER) 0.02 K/ L 0.01-0.08 (test code = 417) IMMATURE GRANULOCYTES-RELATIVE 0 % 0-1 PERCENT (BEAKER) (test code = 2801) POC-Glucose [id number] 16:25:00 Test Item Value Reference Range Interpretation Comments POC-Glucose Meter (test 285 mg/dL 70-110 H : TE STED AT [facility] code = 1538) [address] [facility], 770 30: Molasses Preparer/Techni kate ID = [id number] for GRACIELA ROBB IE Lab Interpretation (test Abnormal code = 42992-2) [facility] [id number] 16:25:00 Test Item Value Reference Range Interpretation Comments POC-GLUCOSE METER 285 mg/dL 70-110 H : TESTED A T [facility] [address] (BEAKER) (test code [facility], = 1538) [address]: Molasses Preparer/Techni kate ID = [id number] for CARMINA BROWN POCT-GLUCOSE [id number] 11:39:00 Test Item Value Reference Range Interpretation Comments POC-GLUCOSE METER 382 mg/dL 70-110 H : TESTED A T [facility] [address] (BEAKER) ([facility] = [facility]) [address]: Molasses Preparer/Techni kate ID = [id number] for CARMINA BROWN Urine [id number] 08:15:00 Test Item Value Reference Range Interpretation Comments Result (test code = See comment 6463-4) ANTHONY (test code = 50-59,000 col/mL enteric ANTHONY) organisms of >2 types. No further workup performed. Multiple organisms suggestive of colonization or contamination. Repeat collection recommended. [facility] [id number] 08:15:00 Test Item Value Reference Range Interpretation Comments CULTURE (BEAKER) (test code = See comment 1095) 50-59,000 col/mL enteric organisms of >2 types. No further workup performed. Multiple organisms suggestive of colonization or contamination. Repeat collection recommended.POCT-GLUCOSE [id number] 07:51:00 Test Item Value Reference Range Interpretation Comments POC-GLUCOSE METER 194 mg/dL 70-110 H : TESTED Pau T [facility] [address] ([place]) (test code = MENA Clemons [facility], 1538) [address]: Molasses Preparer/Techni kate ID = [id number] for FREDDIE BELLA TTGracie Basic Metabolic [id number] 05:59:00 Test Item Value Reference Range Interpretation Comments Sodium (test code = 135 meq/L 136-145 L 2951-2) Potassium (test code = 4.2 meq/L 3.5-5.1 2823-3) Chloride (test code = 96 meq/L 98-107 L 2075-0) CO2 (test code = 28 meq/L 22-29 2028-9) BUN (test code = 51 mg/dL 7-21 H 3094-0) Creatinine (test code 1.81 mg/dL 0.57-1.25 H = 2160-0) Glucose (test code = 221 mg/dL 70-105 H 2345-7) Calcium (test code = 9.9 mg/dL 8.4-10.2 49514-4) EGFR (test code = 28 mL/min/1.73 [place] [address]-1) NOT ACCURATE CREATININE CLEARANCE IN PREDICTING GLOMERULAR FILTRATION RATE . ESTIMATED GFR I S NOT APPLICABLE FOR DIALYSIS PATIENTS. ANTHONY (test code = ANTHONY) Molasses Preparer ID - AMIRAH M Lab Interpretation Abnormal (test code = 85806-6) [facility] [id number] 05:59:00 Test Item Value Reference Range Interpretation Comments SODIUM (BEAKER) 135 meq/L 136-145 L (test code = 381) POTASSIUM (BEAKER) 4.2 meq/L 3.5-5.1 (test code = 379) CHLORIDE (BEAKER) 96 meq/L 98-107 L (test code = 382) CO2 (BEAKER) (test 28 meq/L 22-29 code = 355) BLOOD UREA NITROGEN 51 mg/dL 7-21 H (BEAKER) (test code = 354) CREATININE (BEAKER) 1.81 mg/dL 0.57-1.25 H (test code = 358) GLUCOSE RANDOM 221 mg/dL 70-105 H (BEAKER) (test code = 652) CALCIUM (BEAKER) 9.9 mg/dL 8.4-10.2 (test code = 697) EGFR (BEAKER) (test 28 mL/min/1.73 ESTIMA LAYNE GFR IS code = 1092) sq m NOT ACCURATE CREATININE CLEARANCE IN PREDICTING GLOMERULAR FILTRATION RATE . ESTIMATED GFR I S NOT APPLICABLE FOR DIALYSIS PATIEN TS. Molasses Preparer ID - AMIRAH [id number] 05:57:00 Test Item Value Reference Range Interpretation Comments Magnesium (test code = 1.8 mg/dL 1.6-2.6 47062-6) ANTHONY (test code = ANTHONY) Molasses Preparer ID - AMIRAH M Lab Interpretation (test Normal code = 12453-4) [facility] 05:57:00 Test Item Value Reference Range Interpretation Comments MAGNESIUM (BEAKER) (test code = 1.8 mg/dL 1.6-2.6 627) Molasses Preparer ID - AMIRAH MPOCT-GLUCOSE [id number] 20:06:00 Test Item Value Reference Range Interpretation Comments POC-GLUCOSE METER 296 mg/dL 70-110 H : TESTED A T [facility] 67[address] (BEAKER) (test code = [place], 1538) [address]: Molasses Preparer/Techni kate ID = [id number] for KHALIDA OLIVEIRA POCT-GLUCOSE [id number] 16:29:00 Test Item Value Reference Range Interpretation Comments POC-GLUCOSE METER 202 mg/dL 70-110 H : TESTED A T [facility] 67[address] (BEAKER) (test code = [facility], 1538) [address]: Molasses Preparer/Techni kate ID = [id number] for FREDDIE BELLA TTE POCT-GLUCOSE [id number] 11:36:00 Test Item Value Reference Range Interpretation Comments POC-GLUCOSE METER 256 mg/dL 70-110 H : TESTED A T [facility] 67[address] (BEAKER) (test code = [facility], 1538) 51985: Molasses Preparer/Techni kate ID = [id number] for BELLAFREDDIE TTE POCT-GLUCOSE [id number] 07:49:00 Test Item Value Reference Range Interpretation Comments POC-GLUCOSE METER 226 mg/dL 70-110 H : TESTED A T [facility] [address] (BEAKER) (test code = [facility], 1538) 97[address]: Molasses Preparer/Techni kate ID = [id number] for BELLAFREDDIE TTE BASIC METABOLIC [id number] 04:56:00 Test Item Value Reference Range Interpretation Comments SODIUM (BEAKER) 136 meq/L 136-145 (test code = 381) POTASSIUM (BEAKER) 3.9 meq/L 3.5-5.1 (test code = 379) CHLORIDE (BEAKER) 95 meq/L 98-107 L (test code = 382) CO2 (BEAKER) (test 29 meq/L 22-29 code = 355) BLOOD UREA NITROGEN 47 mg/dL 7-21 H (BEAKER) (test code = 354) CREATININE (BEAKER) 1.74 mg/dL 0.57-1.25 H (test code = 358) GLUCOSE RANDOM 265 mg/dL 70-105 H (BEAKER) (test code = 652) CALCIUM (BEAKER) 9.8 mg/dL 8.4-10.2 (test code = 697) EGFR (BEAKER) (test 30 mL/min/1.73 ESTIMA LAYNE GFR IS code = 1092) sq m NOT ACCURATE CREATININE CLEARANCE IN PREDICTING GLOMERULAR FILTRATION RATE . ESTIMATED GFR I S NOT APPLICABLE FOR DIALYSIS PATIEN TS. Molasses Preparer ID - NEEMA [id number] 04:56:00 Test Item Value Reference Range Interpretation Comments MAGNESIUM (BEAKER) (test code = 2.2 mg/dL 1.6-2.6 627) Molasses Preparer ID - NEEMA WPOCT-GLUCOSE [id number] 21:37:00 Test Item Value Reference Range Interpretation Comments POC-GLUCOSE METER 341 mg/dL 70-110 H : TESTED A T [facility] 67[address] (BEAKER) (test code = [facility], 1538) [address]: Molasses Preparer/Techni kate ID = [id number] for CR ISARCENIO, TIA POCT-GLUCOSE [id number] 17:17:00 Test Item Value Reference Range Interpretation Comments POC-GLUCOSE METER 348 mg/dL 70-110 H : TESTED A T [facility] 67[address] (BEAKER) (test code = [facility], 1538) [address]: Molasses Preparer/Techni kate ID = [id number] for WI LLIS, KARELY POCT-GLUCOSE [id number] 12:40:00 Test Item Value Reference Range Interpretation Comments POC-GLUCOSE METER 223 mg/dL 70-110 H : TESTED A T [facility] 6720 (BEAKER) (test code = [facility], 1538) 15576: Molasses Preparer/Techni kate ID = [id number] for WI LLIS, KARELY POCT-GLUCOSE [id number] 08:48:00 Test Item Value Reference Range Interpretation Comments POC-GLUCOSE METER 188 mg/dL 70-110 H : TESTED A T [facility] 67[address] (BEAKER) (test code = [facility], 1538) [address]1979: Molasses Preparer/Techni kate ID = [id number] for WI LLIS, KARELY Comprehensive metabolic [id number] 06:10:00 Test Item Value Reference Range Interpretation Comments Protein, Total (test 6.5 See_Comment [Autom ated code = 2885-2) message] The system which generated this result transmit layne reference range : 6.0 - 8.3 gm/dL . The reference range was not u sed to interpret th is result as normal/abnormal . Albumin (test code = 3.6 g/dL 3.5-5.0 42199-8) Alkaline Phosphatase 94 U/L 40-150 (test code = 6768-6) Total Bilirubin (test 0.6 mg/dL 0.2-1.2 code = 1975-2) Sodium (test code = 136 meq/L 013-127 8119-2) Potassium (test code 3.9 meq/L 3.5-5.1 = 2823-3) Chloride (test code = 97 meq/L 98-107 L 5-0) CO2 (test code = 27 meq/L 22-29 8-9) BUN (test code = 48 mg/dL 7-21 H 3094-0) Creatinine (test code 1.99 mg/dL 0.57-1.25 H = 2160-0) Glucose (test code = 242 mg/dL 70-105 H 2345-7) Calcium (test code = 9.2 mg/dL 8.4-10.2 59851-9) AST (test code = 16 U/L 5-34 1920-8) ALT (test code = 15 U/L 6-55 1742-6) EGFR (test code = 25 mL/min/1.73 sq m [facility] [place] [address]-7) NOT ACCURATE CREATININE CLEARANCE IN PREDICTING GLOMERULAR FILTRATION RATE . ESTIMATED GFR I S NOT APPLICABLE FOR DIALYSIS PATIEN TS. ANTHONY (test code = ANTHONY) Molasses Preparer ID Natalya BETHEA W Lab Interpretation Abnormal (test code = 59853-8) [facility] 06:10:00 Test Item Value Reference Range Interpretation Comments Phosphorus (test code = 3.6 mg/dL 2.3-4.7 2777-1) ANTHONY (test code = ANTHONY) Molasses Preparer ID Natalya BETHEA W Lab Interpretation (test Normal code = 45503-5) [facility] Test Item Value Reference Range Interpretation Comments MAGNESIUM (BEAKER) (test code = 1.9 mg/dL 1.6-2.6 627) Molasses Preparer ID Natalya BETHEA [id number] 06:10:00 Test Item Value Reference Range Interpretation Comments PHOSPHORUS (BEAKER) (test code = 3.6 mg/dL 2.3-4.7 604) Molasses Preparer CARRIE BETHEA WCOMPREHENSIVE METABOLIC [id number] 06:10:00 Test Item Value Reference Range Interpretation Comments TOTAL PROTEIN 6.5 gm/dL 6.0-8.3 (BEAKER) (test code = 770) ALBUMIN (BEAKER) 3.6 g/dL 3.5-5.0 (test code = 1145) ALKALINE PHOSPHATASE 94 U/L 40-150 (BEAKER) (test code = 346) BILIRUBIN TOTAL 0.6 mg/dL 0.2-1.2 (BEAKER) (test code = 377) SODIUM (BEAKER) (test 136 meq/L 136-145 code = 381) POTASSIUM (BEAKER) 3.9 meq/L 3.5-5.1 (test code = 379) CHLORIDE (BEAKER) 97 meq/L 98-107 L (test code = 382) CO2 (BEAKER) (test 27 meq/L 22-29 code = 355) BLOOD UREA NITROGEN 48 mg/dL 7-21 H (BEAKER) (test code = 354) CREATININE (BEAKER) 1.99 mg/dL 0.57-1.25 H (test code = 358) GLUCOSE RANDOM 242 mg/dL 70-105 H (BEAKER) (test code = 652) CALCIUM (BEAKER) 9.2 mg/dL 8.4-10.2 (test code = 697) AST (SGOT) (BEAKER) 16 U/L 5-34 (test code = 353) ALT (SGPT) (BEAKER) 15 U/L 6-55 (test code = 347) EGFR (BEAKER) (test 25 mL/min/1.73 ESTIMA LAYNE GFR IS code = 1092) sq m NOT ACCURATE CREATININE CLEARANCE IN PREDICTING GLOMERULAR FILTRATION RATE . ESTIMATED GFR I S NOT APPLICABLE FOR DIALYSIS PATIEN TS. Molasses Preparer ID - NEEMA WCBC with platelet count + automated [id number] 05:23:00 Test Item Value Reference Range Interpretation Comments WBC (test code = 6690-2) 8.5 See_Comment [A utomated message] The system [employer] generated this result transmitted ref erence range: 3.5 - 10 .5 K/L. The refe rence range was not u sed to interpret this result as normal/abnor mal. RBC (test code = 789-8) 4.09 See_Comment [Au tomated message] The system [employer] generated this result transmitted ref erence range: 3.93 - 5 .22 M/L. The refe rence range was not u sed to interpret this result as normal/abnor mal. MCHC (test code = 786-4) 33.5 See_Comment [A utomated message] The system [employer] generated this result transmitted ref erence range: 32.2 - 3 5.5 GM/DL. The refe rence range was not u sed to interpret this result as normal/abnor mal. Hematocrit (test code = 36.7 % 34.1-44.9 4544-3) MCV (test code = 787-2) 89.7 fL 79.4-94.8 MCH (test code = 785-6) 30.1 pg 25.6-32.2 RDW (test code = 788-0) 12.9 % 11.7-14.4 Platelets (test code = 246 See_Comment [Aut omated message] 777-3) The system [employer] generated this result transmitted ref erence range: 150 - 45 0 K/CU MM. The referen ce range was not u sed to interpret this result as normal/abnor mal. MPV (test code = 10.9 fL 9.4-12.3 41844-0) nRBC (test code = 413) 0 See_Comment [Aut omated message] The system [employer] generated this result transmitted ref erence range: 0 - 0 /1 00 WBC. The refere nce range was not u sed to interpret this result as normal/abnor mal. % Neutros (test code = 64 % 429) % Lymphs (test code = 27 % 430) % Monos (test code = 8 % 431) % Eos (test code = 432) 1 % % Baso (test code = 437) 1 % # Neutros (test code = 5.42 See_Comment [Aut omated message] 670) The system [employer] generated this result transmitted ref erence range: 1.56 - 6 .13 K/L. The refe rence range was not u sed to interpret this result as normal/abnor mal. # Lymphs (test code = 2.28 See_Comment [Auto mated message] 414) The system [employer] generated this result transmitted ref erence range: 1.18 - 3 .74 K/L. The refe rence range was not u sed to interpret this result as normal/abnor mal. # Monos (test code = 0.64 See_Comment H [Autom ated message] 415) The system [employer] generated this result transmitted ref erence range: 0.24 - 0 .36 K/L. The refe rence range was not u sed to interpret this result as normal/abnor mal. # Eos (test code = 416) 0.09 See_Comment [Au tomated message] The system [employer] generated this result transmitted ref erence range: 0.04 - 0 .36 K/L. The refe rence range was not u sed to interpret this result as normal/abnor mal. # Baso (test code = 417) 0.06 See_Comment [A utomated message] The system [employer] generated this result transmitted ref erence range: 0.01 - 0 .08 K/L. The refe rence range was not u sed to interpret this result as normal/abnor mal. Immature 0 % 0-1 Granulocytes-Relative (test code = 2801) Lab Interpretation (test Abnormal code = 53441-9) [facility] W/PLT COUNT & AUTO [id number] 05:23:00 Test Item Value Reference Range Interpretation Comments WHITE BLOOD CELL COUNT (BEAKER) 8.5 K/ L 3.5-10.5 (test code = 775) RED BLOOD CELL COUNT (BEAKER) 4.09 M/ L 3.93-5.22 (test code = 761) HEMOGLOBIN (BEAKER) (test code = 12.3 GM/DL 11.2-15.7 410) HEMATOCRIT (BEAKER) (test code = 36.7 % 34.1-44.9 411) MEAN CORPUSCULAR VOLUME (BEAKER) 89.7 fL 79.4-94.8 (test code = 753) MEAN CORPUSCULAR HEMOGLOBIN 30.1 pg 25.6-32.2 (BEAKER) (test code = 751) MEAN CORPUSCULAR HEMOGLOBIN CONC 33.5 GM/DL 32.2-35.5 (BEAKER) (test code = 752) RED CELL DISTRIBUTION WIDTH 12.9 % 11.7-14.4 (BEAKER) (test code = 412) PLATELET COUNT (BEAKER) (test 246 K/CU MM 150-450 code = 756) MEAN PLATELET VOLUME (BEAKER) 10.9 fL 9.4-12.3 (test code = 754) NUCLEATED RED BLOOD CELLS 0 /100 WBC 0-0 (BEAKER) (test code = 413) NEUTROPHILS RELATIVE PERCENT 64 % (BEAKER) (test code = 429) LYMPHOCYTES RELATIVE PERCENT 27 % (BEAKER) (test code = 430) MONOCYTES RELATIVE PERCENT 8 % (BEAKER) (test code = 431) EOSINOPHILS RELATIVE PERCENT 1 % (BEAKER) (test code = 432) BASOPHILS RELATIVE PERCENT 1 % (BEAKER) (test code = 437) NEUTROPHILS ABSOLUTE COUNT 5.42 K/ L 1.56-6.13 (BEAKER) (test code = 670) LYMPHOCYTES ABSOLUTE COUNT 2.28 K/ L 1.18-3.74 (BEAKER) (test code = 414) MONOCYTES ABSOLUTE COUNT (BEAKER) 0.64 K/ L 0.24-0.36 H (test code = 415) EOSINOPHILS ABSOLUTE COUNT 0.09 K/ L 0.04-0.36 (BEAKER) (test code = 416) BASOPHILS ABSOLUTE COUNT (BEAKER) 0.06 K/ L 0.01-0.08 (test code = 417) IMMATURE GRANULOCYTES-RELATIVE 0 % 0-1 PERCENT (BEAKER) (test code = 2801) Calcium, [id number] 05:17:00 Test Item Value Reference Range Interpretation Comments Calcium, Ion (test code = 1993-) 1.08 mmol/L 1.12-1.27 L pH, Blood (test code = 04592-8) 7.45 Lab Interpretation (test code = Abnormal 25507-3) [facility] [id number] 05:17:00 Test Item Value Reference Range Interpretation Comments CALCIUM IONIZED (BEAKER) (test 1.08 mmol/L 1.12-1.27 L code = 698) PH, BLOOD (BEAKER) (test code = 7.45 1810) POCT-GLUCOSE [id number] 20:58:00 Test Item Value Reference Range Interpretation Comments POC-GLUCOSE METER 195 mg/dL 70-110 H : TESTED A T [facility] 6720 (BEAKER) (test code = [place], 1538) 365[address]: Molasses Preparer/Techni kate ID = [id number] for JENNIFER GREER POCT-GLUCOSE [id number] 16:56:00 Test Item Value Reference Range Interpretation Comments POC-GLUCOSE METER 239 mg/dL 70-110 H : TESTED A T [facility] 6720 ([facility] (test code = [facility], 1538) 93068: Molasses Preparer/Techni kate ID = [id number] for BAHMAN KNAPP Venous doppler legs [id number] 16:19:49Ejection FractionSLEH ECHO HEART[facility]2D Echo W/Doppler(CW/PW/Color)2021-04-12 14:19:29Ejection FractionSLEH ECHO [facility] [id number] 12:12:00 Test Item Value Reference Range Interpretation Comments POC-GLUCOSE METER 273 mg/dL 70-110 H : TESTED A T [facility] 6720 ([facility] (test code = [facility], 153) 30123: Molasses Preparer/Techni kate ID = [id number] for BAHMAN KNAPP [id number] 10:00:00 Test Item Value Reference Range Interpretation Comments PTT (test code = 96.2 See_Comment H [Automated message] 48693-5) The system [employer] generated this result transmitted ref erence range: 22.5 - 3 6.0 seconds. The reference range was not used to int erpret this result as normal/abnormal . Lab Interpretation (test Abnormal code = 39689-4) [facility] 10:00:00 Test Item Value Reference Range Interpretation Comments PARTIAL THROMBOPLASTIN TIME 96.2 seconds 22.5-36.0 H (BEAKER) (test code = 760) POCT-GLUCOSE [id number] 08:11:00 Test Item Value Reference Range Interpretation Comments POC-GLUCOSE METER 145 mg/dL 70-110 H : TESTED A T [facility] 6720 ([facility] (test code = [facility], 1538) 66289: Molasses Preparer/Techni kate ID = [id number] for BAHMAN KNAPP [id number] 05:18:00 Test Item Value Reference Range Interpretation Comments MAGNESIUM (BEAKER) (test code = 1.8 mg/dL 1.6-2.6 627) Molasses Preparer ID - [id number] 05:18:00 Test Item Value Reference Range Interpretation Comments PHOSPHORUS (BEAKER) (test code = 4.3 mg/dL 2.3-4.7 604) Molasses Preparer ID - EDASICOMPREHENSIVE METABOLIC [id number] 05:18:00 Test Item Value Reference Range Interpretation Comments TOTAL PROTEIN 6.9 gm/dL 6.0-8.3 (BEAKER) (test code = 770) ALBUMIN (BEAKER) 3.8 g/dL 3.5-5.0 (test code = 1145) ALKALINE PHOSPHATASE 100 U/L 40-150 (BEAKER) (test code = 346) BILIRUBIN TOTAL 0.9 mg/dL 0.2-1.2 (BEAKER) (test code = 377) SODIUM (BEAKER) (test 139 meq/L 136-145 code = 381) POTASSIUM (BEAKER) 3.6 meq/L 3.5-5.1 (test code = 379) CHLORIDE (BEAKER) 96 meq/L 98-107 L (test code = 382) CO2 (BEAKER) (test 30 meq/L 22-29 H code = 355) BLOOD UREA NITROGEN 41 mg/dL 7-21 H (BEAKER) (test code = 354) CREATININE (BEAKER) 2.45 mg/dL 0.57-1.25 H (test code = 358) GLUCOSE RANDOM 153 mg/dL 70-105 H (BEAKER) (test code = 652) CALCIUM (BEAKER) 9.8 mg/dL 8.4-10.2 (test code = 697) AST (SGOT) (BEAKER) 20 U/L 5-34 (test code = 353) ALT (SGPT) (BEAKER) 17 U/L 6-55 (test code = 347) EGFR (BEAKER) (test 20 mL/min/1.73 ESTIMA LAYNE GFR IS code = 1092) sq m NOT ACCURATE CREATININE CLEARANCE IN PREDICTING GLOMERULAR FILTRATION RATE . ESTIMATED GFR I S NOT APPLICABLE FOR DIALYSIS PATIEN TS. Molasses Preparer ID - EDASICALCIUM, [id number] 05:08:00 Test Item Value Reference Range Interpretation Comments CALCIUM IONIZED (BEAKER) (test 1.15 mmol/L 1.12-1.27 code = 698) PH, BLOOD (BEAKER) (test code = 7.31 1810) CBC W/PLT COUNT & AUTO [id number] 04:38:00 Test Item Value Reference Range Interpretation Comments WHITE BLOOD CELL COUNT (BEAKER) 8.5 K/ L 3.5-10.5 (test code = 775) RED BLOOD CELL COUNT (BEAKER) 4.43 M/ L 3.93-5.22 (test code = 761) HEMOGLOBIN (BEAKER) (test code = 13.4 GM/DL 11.2-15.7 410) HEMATOCRIT (BEAKER) (test code = 39.9 % 34.1-44.9 411) MEAN CORPUSCULAR VOLUME (BEAKER) 90.1 fL 79.4-94.8 (test code = 753) MEAN CORPUSCULAR HEMOGLOBIN 30.2 pg 25.6-32.2 (BEAKER) (test code = 751) MEAN CORPUSCULAR HEMOGLOBIN CONC 33.6 GM/DL 32.2-35.5 (BEAKER) (test code = 752) RED CELL DISTRIBUTION WIDTH 13.0 % 11.7-14.4 (BEAKER) (test code = 412) PLATELET COUNT (BEAKER) (test 267 K/CU MM 150-450 code = 756) MEAN PLATELET VOLUME (BEAKER) 11.0 fL 9.4-12.3 (test code = 754) NUCLEATED RED BLOOD CELLS 0 /100 WBC 0-0 (BEAKER) (test code = 413) NEUTROPHILS RELATIVE PERCENT 55 % (BEAKER) (test code = 429) LYMPHOCYTES RELATIVE PERCENT 33 % (BEAKER) (test code = 430) MONOCYTES RELATIVE PERCENT 9 % (BEAKER) (test code = 431) EOSINOPHILS RELATIVE PERCENT 3 % (BEAKER) (test code = 432) BASOPHILS RELATIVE PERCENT 1 % (BEAKER) (test code = 437) NEUTROPHILS ABSOLUTE COUNT 4.66 K/ L 1.56-6.13 (BEAKER) (test code = 670) LYMPHOCYTES ABSOLUTE COUNT 2.80 K/ L 1.18-3.74 (BEAKER) (test code = 414) MONOCYTES ABSOLUTE COUNT (BEAKER) 0.75 K/ L 0.24-0.36 H (test code = 415) EOSINOPHILS ABSOLUTE COUNT 0.22 K/ L 0.04-0.36 (BEAKER) (test code = 416) BASOPHILS ABSOLUTE COUNT (BEAKER) 0.05 K/ L 0.01-0.08 (test code = 417) IMMATURE GRANULOCYTES-RELATIVE 0 % 0-1 PERCENT (BEAKER) (test code = 2801) Creatinine, random [id number] 02:58:00 Test Item Value Reference Range Interpretation Comments Creatinine, Ur 246.4 mg/dL (test code = 2161-8) ANTHONY (test code = Reference Range: No ANTHONY) NormalsOperator ID - AMIRAH Pippa [facility] HospitalCREATININE, RANDOM [id number] 02:58:00 Test Item Value Reference Range Interpretation Comments CREATININE URINE (BEAKER) (test 246.4 mg/dL code = 375) Reference Range: No NormalsOperator ID - AMIRAH MUrinalysis w/Microscopic 2021-04-12 02:48:00 Test Item Value Reference Range Interpretation Comments Color, UA (test code Yellow = 5778-6) Clarity, UA (test Hazy code = 5767-9) Specific [place], UA 1.015 1.001-1.035 (test code = 5811-5) pH, UA (test code = 5.5 5.0-8.0 5803-2) Protein, UA (test 20 mg/dL Negative A code = 73023-9) Glucose, UA (test Negative Negative code = 365) Ketones, UA (test Negative Negative code = 2514-8) Bilirubin, UA (test Negative Negative code = 87835-3) Blood, UA (test code Negative Negative = 18566-0) Nitrite, UA (test Negative Negative code = 5802-4) Leukocytes, UA (test Negative Negative code = 5799-2) Urobilinogen, UA 2.0 mg/dL 0.2-1.0 H (test code = 89187-3) RBC, UA (test code = 2 See_Comment [Autom ated 49609-2) message] The system which generated this result transmitted reference range : /HPF. The reference range was not used to interpret this result as normal/abnormal . WBC, UA (test code = 21 See_Comment [Autom ated 5821-4) message] The system which generated this result transmitted reference range : /HPF. The reference range was not used to interpret this result as normal/abnormal . Bacteria, UA (test Occasional code = 77451-9) Mucus (test code = Rare 8247-9) Squam Epithel, UA 7 See_Comment [Automate d (test code = 16764-9) messag e] The system which generated this result transmitted reference range : /HPF. The reference range was not used to interpret this result as normal/abnormal . Hyaline Casts, UA 51 See_Comment [Automate d (test code = 44685-9) messag e] The system which generated this result transmitted reference range : /LPF. The reference range was not used to interpret this result as normal/abnormal . Yeast (test code = Occasional 10890-5) Specimen Source (test code = 2795) ANTHONY (test code = ANTHONY) Molasses Preparer ID - [auto]Molasses Preparer ID - tech Lab Interpretation Abnormal (test code = 15878-1) [facility]/ [id number] 02:48:00 Test Item Value Reference Range Interpretation Comments COLOR (BEAKER) (test code = 470) Yellow CLARITY (BEAKER) (test code = 469) Hazy SPECIFIC GRAVITY UA (BEAKER) (test 1.015 1.001-1.035 code = 468) PH UA (BEAKER) (test code = 467) 5.5 5.0-8.0 PROTEIN UA (BEAKER) (test code = 20 mg/dL Negative A 464) GLUCOSE UA (BEAKER) (test code = Negative Negative 365) KETONES UA (BEAKER) (test code = Negative Negative 371) BILIRUBIN UA (BEAKER) (test code = Negative Negative 462) BLOOD UA (BEAKER) (test code = Negative Negative 461) NITRITE UA (BEAKER) (test code = Negative Negative 465) LEUKOCYTE ESTERASE UA (BEAKER) Negative Negative (test code = 466) UROBILINOGEN UA (BEAKER) (test 2.0 mg/dL 0.2-1.0 H code = 463) RBC UA (BEAKER) (test code = 519) 2 /HPF WBC UA (BEAKER) (test code = 520) 21 /HPF BACTERIA (BEAKER) (test code = Occasional 517) MUCUS (BEAKER) (test code = 1574) Rare SQUAMOUS EPITHELIAL (BEAKER) (test 7 /HPF code = 516) HYALINE CASTS (BEAKER) (test code 51 /LPF = 514) YEAST (BEAKER) (test code = 1585) Occasional SOURCE(BEAKER) (test code = 2795) Molasses Preparer ID - [auto]Molasses Preparer ID - techProtein, random [id number] 02:37:00 Test Item Value Reference Range Interpretation Comments Protein, Urine (test code 29 mg/dL 0-14 H = 2888-6) ANTHONY (test code = ANTHONY) Molasses Preparer ID - AMIRAH Das Lab Interpretation (test Abnormal code = 86995-0) [facility], random [id number] 02:37:00 Test Item Value Reference Range Interpretation Comments Sodium Urine (test 41 meq/L code = 2955-3) ANTHONY (test code = Reference Range: No ANTHONY) NormalsOperator ID - AMIRAH Das [facility] HospitalPROTEIN, RANDOM [id number] 02:37:00 Test Item Value Reference Range Interpretation Comments PROTEIN, URINE (BEAKER) (test code = 29 mg/dL 0-14 H 1569) Molasses Preparer ID - AMIRAH MSODIUM, RANDOM [id number] 02:37:00 Test Item Value Reference Range Interpretation Comments SODIUM URINE (BEAKER) (test code = 41 meq/L 243) Reference Range: No NormalsOperator ID - AMIRAH [id number] 00:21:00 Test Item Value Reference Range Interpretation Comments PARTIAL THROMBOPLASTIN TIME 118.1 seconds 22.5-36.0 H (BEAKER) (test code = 760) [id number] 23:19:00 Test Item Value Reference Range Interpretation Comments PARTIAL THROMBOPLASTIN TIME 169.7 seconds 22.5-36.0 HH (BEAKER) (test code = 760) POCT-GLUCOSE [id number] 21:46:00 Test Item Value Reference Range Interpretation Comments POC-GLUCOSE METER 174 mg/dL 70-110 H : TESTED A T [facility] 6720 (BEAKER) (test code = [place], 1538) 86244: Molasses Preparer/Techni kate ID = [id number] for CR JENNIFER FU POCT-GLUCOSE [id number] 17:19:00 Test Item Value Reference Range Interpretation Comments POC-GLUCOSE METER 195 mg/dL 70-110 H : TESTED A T [facility] 6720 (BEAKER) (test code = [place], 1538) 78531: Molasses Preparer/Techni kate ID = [id number] for BAHMAN KNAPP [id number] 15:38:00 Test Item Value Reference Range Interpretation Comments PARTIAL THROMBOPLASTIN TIME 30.3 seconds 22.5-36.0 (BEAKER) (test code = 760) CBC (Hemogram only)2021-04-11 15:28:00 Test Item Value Reference Range Interpretation Comments WBC (test code = 6690-2) 9.0 See_Comment [A utomated message] The system [employer] generated this result transmitted ref erence range: 3.5 - 10 .5 K/L. The refe rence range was not u sed to interpret this result as normal/abnor mal. RBC (test code = 789-8) 4.31 See_Comment [Au tomated message] The system [employer] generated this result transmitted ref erence range: 3.93 - 5 .22 M/L. The refe rence range was not u sed to interpret this result as normal/abnor mal. MCHC (test code = 786-4) 33.2 See_Comment [A utomated message] The system [employer] generated this result transmitted ref erence range: 32.2 - 3 5.5 GM/DL. The refe rence range was not u sed to interpret this result as normal/abnor mal. Hematocrit (test code = 39.1 % 34.1-44.9 4544-3) MCV (test code = 787-2) 90.7 fL 79.4-94.8 MCH (test code = 785-6) 30.2 pg 25.6-32.2 RDW (test code = 788-0) 12.8 % 11.7-14.4 Platelets (test code = 274 See_Comment [Aut omated message] 917-3) The system [employer] generated this result transmitted ref erence range: 150 - 45 0 K/CU MM. The referen ce range was not u sed to interpret this result as normal/abnor mal. MPV (test code = 31375-2) 10.6 fL 9.4-12.3 nRBC (test code = 413) 0 See_Comment [Aut omated message] The system [employer] generated this result transmitted ref erence range: 0 - 0 /1 00 WBC. The refere nce range was not u sed to interpret this result as normal/abnor mal. Lab Interpretation (test Normal code = 05542-6) [facility] (HEMOGRAM ONLY)2021-04-11 15:28:00 Test Item Value Reference Range Interpretation Comments WHITE BLOOD CELL COUNT (BEAKER) 9.0 K/ L 3.5-10.5 (test code = 775) RED BLOOD CELL COUNT (BEAKER) 4.31 M/ L 3.93-5.22 (test code = 761) HEMOGLOBIN (BEAKER) (test code = 13.0 GM/DL 11.2-15.7 410) HEMATOCRIT (BEAKER) (test code = 39.1 % 34.1-44.9 411) MEAN CORPUSCULAR VOLUME (BEAKER) 90.7 fL 79.4-94.8 (test code = 753) MEAN CORPUSCULAR HEMOGLOBIN 30.2 pg 25.6-32.2 (BEAKER) (test code = 751) MEAN CORPUSCULAR HEMOGLOBIN CONC 33.2 GM/DL 32.2-35.5 (BEAKER) (test code = 752) RED CELL DISTRIBUTION WIDTH 12.8 % 11.7-14.4 (BEAKER) (test code = 412) PLATELET COUNT (BEAKER) (test 274 K/CU MM 150-450 code = 756) MEAN PLATELET VOLUME (BEAKER) 10.6 fL 9.4-12.3 (test code = 754) NUCLEATED RED BLOOD CELLS 0 /100 WBC 0-0 (BEAKER) (test code = 413) PUL PERF IMAGING, [id number] 14:11:00Unlisted Reason for Exam - Click Yes and Enter Reason Below->No [facility] 1960 Sex: FFINAL REPORT PROCEDURE: LUNG SCAN - perfusion only CPT CODE: 14910 INDICATION: PE issuspected, positive D-dimer PROTOCOL: 2.2 mCi of Tc-99m MAA was injected intravenously, and static perfusion images were obtained in anterior and anterior-oblique projections. Ventilation imaging was not performed due to COVID-19 precautions. FINDINGS: Tracer distribution is near normal. IMPRESSION: Very low limited perfusion lung scan. Signed: Nicko Maynard Verified Date/Time: 04/11/2021 14:11:55 Reading Location: [address] Reading Room POCT-GLUCOSE [id number] 11:13:00 Test Item Value Reference Range Interpretation Comments POC-GLUCOSE METER 153 mg/dL 70-110 H : TESTED A T [facility] (test code = MENA Clemons [facility], 1538) [address]: Molasses Preparer/Techni kate ID = [id number] for Tonya Hensley SARS-CoV2/Influenza/RSV RT-PCR (Symptomatic ONLY)2021-04-11 10:06:00 Test Item Value Reference Range Interpretation Comments SARS-COV2/RT-PCR (test Negative Negative code = 31874-6) Influenza A RT-PCR Negative Negative (test code = 48669-7) Influenza B RT-PCR Negative Negative (test code = 07357-6) RSV by RT-PCR (test Negative Negative Performa nce of the code = 08236-0) Xpert Xpress SARS-CoV-2/Flu/ RSV test has only been established in nasopharyngeal swab specimens. Use of the Xpert Xpress SARS-CoV-2/Flu/ RSV test with other spec imen types has not b een assessed and performance characteristics are unknown. As wit h any molecular test, mutations withi n the targeted geneti c regions identif ied by the Xpert Xpres s SARS-CoV-2/Flu/ RSV test could affect pr julianne and/or probe bi nding resulting in fa ilure to detect the pres ence of virus or the vi carisa being detected less predictably.Neg ative results do not preclude SARS-CoV-2, Inf luenza A/B, or RSV inf ection and should not be used as the sole bas is for treatment or ot her patient managem ent decisions. Resu lts from the Xpert Xpres s SARS-CoV-2/Flu/ RSV test should be corre lated with the clinic al history, epidemiological data, and other data available to th e clinician evalu ating the patient. In valid test results ma y occur from improper s pecimen collection; lilibeth lure to follow the chela mmended sample collecti on, handling, and s torage procedures; clarissa hnical error. False ne gative results may occ ur if virus is presen t at levels below th e analytical limi t of detection (LOD: 131 copies/mL). Vir al nucleic acid ma y persist in vivo , independent of virus viability. Dete ction of analyte target( s) does not imply that the corresponding v irus(es) are infectious or are the causative a gents for clinical sy mptoms. Recent patient exposure to FluMist or other live attenuated influenza vacci guy may cause inaccurat e positive result s.This test has been authorized by David HUGGINS under an EUA for use by authorized laboratories. T his test is only authori zed for the duration of the declaration ace t circumstances e xist justifying the authorization o f emergency use o f in vitro diagnosti c tests for detection a nd/or diagnosis of CO VID-19 under Section 5 64(b)(1) of the Federal Food, Drug and Cosmet ic Act, 21 U.S.C. 360bbb-3(b)(1), unless the authorizati on is terminated or r evoked sooner. Fact Sh eet for Healthcare Prov iders: https://www.[employer].com /Documents/Xper t%20Xpre ss%19KNSK-KqV-5 -Flu-RSV /302-4508%20Rev .%20B%20 HCP%20Fact%20Sh eet.pdf Fact Sheet for Healthcare Katerine ents: https://www.[employer] /Documents/Xper t%20Xpre ss%81PEGT-KxH-9 -Flu-RSV /302-4507%20Rev .%20B%20 Patient%20Fact% 20Sheet. pdf Lab Interpretation Normal (test code = 82376-5) [facility]FLU[facility]ZA/RSV [id number] 10:06:00 Test Item Value Reference Range Interpretation Comments SARS-COV2/RT-PCR Negative Negative (test code = 2879769) INFLUENZA A RT-PCR Negative Negative (test code = 9092654) INFLUENZA B RT-PCR Negative Negative (test code = 4389717) RSV RT-PCR (test Negative Negative Performance of the Xpert code = 2347365) Xpress SARS- CoV-2/Flu/RSV test has only b een established in nasopharyngeal swab specimens. Use of the Xpert Xpress SARS-CoV-2/Flu/ RSV test with other spec imen types has not been as sessed and performance characteristics are unknown. As wit h any molecular test, mutations within the targ eted genetic regions identified by Xpert Xpress SARS-CoV -2/Flu/RSV test could affe ct primer and/or probe bi nding resulting in fa ilure to detect the pres ence of virus or the vi carisa being detected less predictably.Neg ative results do not preclude SARS-CoV-2, Inf luenza A/B, or RSV inf ection and should not be u sed as the sole basis for treatment or other patien t management deci sions. Results from e Xpert Xpress SARS-CoV -2/Flu/RSV test should be correlated with the clinic al history, epidem iological data, and other data available to e clinician evalu ating the patient. Invali d test results may occ ur from improper specim en collection; lilibeth lure to follow the chela mmended sample collecti on, handling, and s torage procedures; clarissa hnical error. False ne gative results may occ ur if virus is presen t at levels below e analytical limi t of detection (LOD: 131 copies/mL). Vir al nucleic acid may persis t in vivo, independent of virus viability. Dete ction of analyte target( s) does not imply that the corresponding v irus(es) are infectious or are the causative agent s for clinical sympto ms. Recent patient exposur e to FluMist or othe r live attenuated infl uenza vaccines may ca use inaccurate posi tive results.This te st has been authorized by FDA under an EUA fo r use by authorized labo ratories. This test is on ly authorized for the duration of the declaration ace t circumstances e xist justifying the authorization o f emergency use o f in vitro diagnostic test s for detection and/o r diagnosis of CO VID-19 under Section 5 64(b)(1) of the Federal Food, Drug and Cosmetic Ac t, 21 U.S.C. 360bbb-3 (b)(1), unless the auth orization is terminated o r revoked sooner.Fact She et for Healthcare Prov iders: https://www.Sano/D ocuments/Xpert% 20Xpress%2 0NZYP-RtQ-8-Flu -RSV/302-4 508%20Rev.%20B% 20HCP%20Fa ct%20Sheet.pdfF act Sheet for Healthcare Patients: https://www.Sano/D ocuments/Xpert% 20Xpress%2 5DQTQ-ZkP-3-Flu -RSV/302-4 507%20Rev.%20B% 20Patient% 20Fact%20Sheet. pdf Blood gas, [id number] 09:43:00 Test Item Value Reference Range Interpretation Comments pH, Arterial (test code 7.43 7.35-7.45 = 2744-1) pCO2, Arterial (test 43 See_Comment [Autom ated message] code = 2019-8) The system [employer] generated this result transmit layne reference range : 35 - 45 mm Hg. The reference range was not used to interpret this result as normal/abnormal . pO2, Arterial (test 113 See_Comment H [Automa layne message] code = 2703-7) The system [employer] generated this result transmit layne reference range : 80 - 90 mm Hg. The reference range was not used to interpret this result as normal/abnormal . O2 Sat, Arterial (test 98.2 % 96.0-97.0 H code = 2708-6) HCO3, Arterial (test 28 mmol/L 21-29 code = 1960-4) Base Excess, Arterial 3.3 mmol/L -2.0-3.0 H (test code = 1925-7) Patient Temperature 37.0 (test code = 8310-5) FIO2 (test code = 1819) 28 Lab Interpretation Abnormal (test code = 49843-0) [facility] [id number] 09:43:00 Test Item Value Reference Range Interpretation Comments PH ARTERIAL (BEAKER) (test code = 7.43 7.35-7.45 383) PCO2 ARTERIAL (BEAKER) (test code 43 mm Hg 35-45 = 384) PO2 ARTERIAL (BEAKER) (test code = 113 mm Hg 80-90 H 385) O2 SATURATION ARTERIAL (BEAKER) 98.2 % 96.0-97.0 H (test code = 386) HCO3 ARTERIAL (BEAKER) (test code 28 mmol/L 21-29 = 388) BASE EXCESS ARTERIAL (BEAKER) 3.3 mmol/L -2.0-3.0 H (test code = 387) PATIENT TEMPERATURE (BEAKER) (test 37.0 code = 1818) FIO2 (BEAKER) (test code = 1819) 28.0 D-dimer, [id number] 04:55:00 Test Item Value Reference Range Interpretation Comments D-Dimer, Quant (test 1.33 See_Comment H [Autom ated code = 65397-1) message] The system which generated this result transmitted reference range : <0.50 MG/L FEU. The reference range was not used to interpr et this result as normal/abnormal . ANTHONY (test code = ANTHONY) Intended Use: The D-Dimer Assay can be used to aid in the diagnosis of Deep Vein Thrombosis (DVT) and Pulmonary Embolism Disease (PED).In patients with low pre-test probability, various studies concerning STA Liatest D-dimer test have reported that with a cutoff value of 0.50 MG/L FEU, the Negative Predictive Value (NPV) regarding the exclusion of thrombosis is within 95-100% range. Lab Interpretation Abnormal (test code = 78539-3) [id number] 04:55:00 Test Item Value Reference Range Interpretation Comments D-DIMER QUANTITATIVE (BEAKER) 1.33 MG/L FEU <0.50 H (test code = 671) Intended Use: The [...] the exclusion of thrombosis is within 95-100% range.B-type Natriuretic Factor (BNP)2021-04-11 04:09:00 Test Item Value Reference Range Interpretation Comments BNP (test code = 20436-7) 94 pg/mL 0-100 ANTHONY (test code = ANTHONY) Molasses Preparer ID - EDASI Lab Interpretation (test Normal code = 41322-7) [facility] ([facility])2021-04-11 04:09:00 Test Item Value Reference Range Interpretation Comments Troponin I HS (test 8 pg/ml See_Comment [Automa layne code = 52082-6) message] The system which generated this result transmitted reference range : <=17. The reference range was not used to interpret this result as normal/abnormal . ANTHONY (test code = Molasses Preparer ID - ANTHONY) EDASIThe TUB OPERATOR STAT High Sensitivity Troponin-I results should be used in conjunction with other diagnostic information such as ECG, clinical observations and information, and patient symptoms to aid in the diagnosis of CO. Lab Interpretation Normal (test code = 78347-1) [facility] TROPONIN [id number] 04:09:00 Test Item Value Reference Range Interpretation Comments HIGH SENSITIVITY 8 pg/ml See_Comment [Automated message] TROPONIN I (test code = The system which 4090388) generated this result transmitted ref erence range: <=17. Th e reference range was not used to interpr et this result as normal/abnormal . Molasses Preparer ID - EDASIThe TUB OPERATOR STAT High Sensitivity Troponin-I results should be used in conjunction with other diagnostic information such as ECG, clinical observations and information, and patientsymptoms to aid in the diagnosis of CO. B-TYPE NATRIURETIC FACTOR (BNP)2021-04-11 04:09:00 Test Item Value Reference Range Interpretation Comments B-TYPE NATRIURETIC PEPTIDE (BEAKER) 94 pg/mL 0-100 (test code = 700) Molasses Preparer ID - EDASIBASIC METABOLIC [id number] 04:03:00 Test Item Value Reference Range Interpretation Comments SODIUM (BEAKER) 138 meq/L 136-145 (test code = 381) POTASSIUM (BEAKER) 3.9 meq/L 3.5-5.1 (test code = 379) CHLORIDE (BEAKER) 100 meq/L 98-107 (test code = 382) CO2 (BEAKER) (test 27 meq/L 22-29 code = 355) BLOOD UREA NITROGEN 33 mg/dL 7-21 H (BEAKER) (test code = 354) CREATININE (BEAKER) 1.96 mg/dL 0.57-1.25 H (test code = 358) GLUCOSE RANDOM 159 mg/dL 70-105 H (BEAKER) (test code = 652) CALCIUM (BEAKER) 9.3 mg/dL 8.4-10.2 (test code = 697) EGFR (BEAKER) (test 26 mL/min/1.73 ESTIMA LAYNE GFR IS code = 1092) sq m NOT ACCURATE CREATININE CLEARANCE IN PREDICTING GLOMERULAR FILTRATION RATE . ESTIMATED GFR I S NOT APPLICABLE FOR DIALYSIS PATIEN TS. Molasses Preparer ID - EDASIRAD, CHEST, 2 [id number] 03:54:00Reason for exam:- >LEG SWELLINGReason for exam:->SHORTNESS OF BREATH [facility] : 1960 Sex: FFINAL REPORT CLINICAL HISTORY: Leg swelling and shortness of breath Two views of thechest are submitted. COMPARISON:07/16/2020 The cardiomediastinal and hilar contours are unremarkable.There is no focal consolidation, pleural effusion, pneumothorax or evidence of overt pulmonary edema. There is no acute bony abnormality. IMPRESSION: No acute abnormality. Signed: Nguyen Juan MDReport Verified Date/Time: 04/11/2021 03:54:10 CBC W/PLT COUNT & AUTO DIFFERENTIAL 2021-04-11 03:46:00 Test Item Value Reference Range Interpretation Comments WHITE BLOOD CELL COUNT (BEAKER) 8.3 K/ L 3.5-10.5 (test code = 775) RED BLOOD CELL COUNT (BEAKER) 4.20 M/ L 3.93-5.22 (test code = 761) HEMOGLOBIN (BEAKER) (test code = 12.5 GM/DL 11.2-15.7 410) HEMATOCRIT (BEAKER) (test code = 38.4 % 34.1-44.9 411) MEAN CORPUSCULAR VOLUME (BEAKER) 91.4 fL 79.4-94.8 (test code = 753) MEAN CORPUSCULAR HEMOGLOBIN 29.8 pg 25.6-32.2 (BEAKER) (test code = 751) MEAN CORPUSCULAR HEMOGLOBIN CONC 32.6 GM/DL 32.2-35.5 (BEAKER) (test code = 752) RED CELL DISTRIBUTION WIDTH 12.8 % 11.7-14.4 (BEAKER) (test code = 412) PLATELET COUNT (BEAKER) (test 255 K/CU MM 150-450 code = 756) MEAN PLATELET VOLUME (BEAKER) 10.4 fL 9.4-12.3 (test code = 754) NUCLEATED RED BLOOD CELLS 0 /100 WBC 0-0 (BEAKER) (test code = 413) NEUTROPHILS RELATIVE PERCENT 61 % (BEAKER) (test code = 429) LYMPHOCYTES RELATIVE PERCENT 28 % (BEAKER) (test code = 430) MONOCYTES RELATIVE PERCENT 9 % (BEAKER) (test code = 431) EOSINOPHILS RELATIVE PERCENT 2 % (BEAKER) (test code = 432) BASOPHILS RELATIVE PERCENT 0 % (BEAKER) (test code = 437) NEUTROPHILS ABSOLUTE COUNT 5.08 K/ L 1.56-6.13 (BEAKER) (test code = 670) LYMPHOCYTES ABSOLUTE COUNT 2.29 K/ L 1.18-3.74 (BEAKER) (test code = 414) MONOCYTES ABSOLUTE COUNT (BEAKER) 0.73 K/ L 0.24-0.36 H (test code = 415) EOSINOPHILS ABSOLUTE COUNT 0.19 K/ L 0.04-0.36 (BEAKER) (test code = 416) BASOPHILS ABSOLUTE COUNT (BEAKER) 0.03 K/ L 0.01-0.08 (test code = 417) IMMATURE GRANULOCYTES-RELATIVE 0 % 0-1 PERCENT (BEAKER) (test code = 2801) VITAMIN D, [id number] 11:46:00 Test Item Value Reference Range Interpretation Comments VITAMIN D 25-OH (BEAKER) (test 15.9 ng/mL 6.6-49.9 code = 2764) Effective 09/08/2017: Reference Range ChangeNew: 6.6-49.9 ng/mL Previous: 13.0- 47.8 ng/mLRecommendedVitamin D Target Range: 30.0-40.0 ng/mLOperator CARRIE MELGARASIC METABOLIC [id number] 11:28:00 Test Item Value Reference Range Interpretation [...] S NOT APPLICABLE FOR DIALYSIS PATIEN TS. Molasses Preparer CARRIE BEAVER FB-TYPE NATRIURETIC FACTOR (BNP)2020-11-15 14:51:00 Test Item Value Reference Range Interpretation Comments B-TYPE NATRIURETIC PEPTIDE (BEAKER) 119 pg/mL 0-100 H (test code = 700) TSH/FREE T4 IF [id number] 12:42:00 Test Item Value Reference Range Interpretation Comments THYROID STIMULATING HORMONE 2.524 uIU/mL 0.350-4.940 (BEAKER) (test code = 772) Molasses Preparer ID - ADMINVITAMIN B12 AND [id number] 12:42:00 Test Item Value Reference Range Interpretation Comments VITAMIN B12 (BEAKER) (test code = 307 pg/mL 213-816 774) FOLATE (BEAKER) (test code = 362) 11.90 ng/mL >=7.00 Molasses Preparer ID - ADMINHEMOGLOBIN [id number] 12:22:00 Test Item Value Reference Range Interpretation Comments HEMOGLOBIN A1C (BEAKER) (test code = 9.7 % 4.3-6.1 H 368) IRON, TIBC, % SAT. (WITHOUT FERRITIN)2020-11-15 12:07:00 Test Item Value Reference Range Interpretation Comments IRON (BEAKER) (test code = 547) 33.0 ug/dL 40.0-160.0 L TOTAL IRON BINDING CAPACITY 286 ug/dL 250-450 (BEAKER) (test code = 769) IRON % SATURATION (2) (BEAKER) 12 % 20-55 L (test code = 2590) Molasses Preparer ID - ADMINCOMPREHENSIVE METABOLIC [id number] 11:41:00 Test Item Value Reference Range Interpretation [...] S NOT APPLICABLE FOR DIALYSIS PATIEN TS. Molasses Preparer ID - PIAYA LCBC W/PLT COUNT & AUTO [id number] 11:22:00 Test Item Value Reference Range Interpretation [...] (BEAKER) (test code = 2801) BASIC METABOLIC PANEL (NA, K, CL, CO2, GLUCOSE, BUN, CREATININE, CA)2020-08-22 21:32:00 Test Item Value Reference Range Interpretation Comments NA (test code = 134 mmol/L 135-145 L 1243674092) K (test code = 5.6 mmol/L 3.5-5 H 7141162908) CL (test code = 99 mmol/L 98-108 6219381247) CO2 TOTAL (test code = 26 mmol/L 23-31 7988727078) AGAP (test code = 2-16 6738602516) BUN (test code = 30 mg/dL 7-23 H 6481140540) GLUCOSE (test code = 337 mg/dL 70-110 H 0049652905) CREATININE (test code = 1.41 mg/dL 0.5-1.04 H 1835625178) CALCIUM (test code = 9.0 mg/dL 8.6-10.6 5446127815) eGFR Calculation mL/min/1.73m2 (Non-) (test code = 6133291232) eGFR Calculation mL/min/1.73m2 () (test code = 3065119897) ANTHONY (test code = ANTHONY) Association of Glomerular Filtration Rate (GFR) and Staging of Kidney Disease* + --+ --+ ------+| GFR (mL/min/1.73 m2) ?| With Kidney Damage ?| ?Without Kidney Damage+ --------+ --------+ +| ?>90 ?| ?Stage one ?| ? Normal ?+ ---+ ---+ -------+| ?60-89 ?| ?Stage two ?| ? Decreased GFR ? + --+ --+ ------+| ?30-59 ?| ?Stage three ?| ? Stage three ? + --+ --+ ------+| ?15-29 ?| ?Stage four ? | ? Stage four ?+ ---+ ---+ -------+| ?<15 (or dialysis) ? ?| ?Stage five ? | ? Stage five ?+ ---+ ---+ -------+ *Each stage assumes the associated GFR level has been in effect for at least three months. ?Stages 1 to 5, with or without kidney disease, indicate chronic kidney disease. Notes: Determination of stages one and two (with eGFR >59mL/min/1.73 m2) requires estimation of kidney damage for at least three months as defined by structural or functional abnormalities of the kidney, manifested by either:Pathological abnormalities or Markers of kidney damage (including abnormalities in the composition of the blood or urine or abnormalities in imaging tests). Lab Interpretation Abnormal (test code = 00248-7) [facility], [facility]OWER WITHOUT CONTRAST, RIGHT 2020-07-29 15:05:00Unlisted Reason for Exam - Click Yes and Enter Reason Below- >YesUnlisted Reason for Exam->right thigh hematomaFINAL REPORT CT of the right thigh without contrast History: Unlisted Reason for Examright thigh hematoma Comparisons: No priors Technique: CT of the right thigh was performed without contrast. Axial images were generated as were multiplanar reformatted images in the coronal and sagittal planes. This exam was performed according to our departmental dose optimization program whichincludes automated exposure control, adjustment of the mA and/or kV according to patient's size and/or use of iterative reconstructive technique. Findings: No evidence of acute fracture, or dislocation. Degenerative changes are noted in the lower lumbar spine. No suspicious bony lesion is identified. There is mild degenerative change at the right knee and symphysis pubis. No significant right hip, orknee joint effusion. There is full-thickness versus high-grade [...] Mild osteoarthritis. Fibroid uterus. Signed: Thang Obrien Verified Date/Time: 07/29/2020 15:05:00 Reading Location:[facility] C013X Ortho Consult Reading Room POCT-GLUCOSE [id number] 12:07:00 Test Item Value Reference Range Interpretation Comments POC-GLUCOSE METER 259 mg/dL 70-110 H : TESTED A T [facility] 6720 (BEAKER) (test code = [facility], 1538) 36885: Molasses Preparer/Techni kate ID = [id number] for [place] POCT-GLUCOSE [id number] 08:02:00 Test Item Value Reference Range Interpretation Comments POC-GLUCOSE METER 206 mg/dL 70-110 H : TESTED A T [facility] 6720 (BEAKER) (test code = [facility], 1538) 74291: Molasses Preparer/Techni kate ID = [id number] for [place] [id number] 05:38:00 Test Item Value Reference Range Interpretation Comments PHOSPHORUS (BEAKER) (test code = 2.8 mg/dL 2.3-4.7 604) Molasses Preparer ID - AMIRAH [id number] 05:38:00 Test Item Value Reference Range Interpretation Comments MAGNESIUM (BEAKER) (test code = 1.8 mg/dL 1.6-2.6 627) Molasses Preparer ID - AMIRAH MCOMPREHENSIVE METABOLIC [id number] 05:38:00 Test Item Value Reference Range Interpretation [...] S NOT APPLICABLE FOR DIALYSIS PATIEN TS. Molasses Preparer ID - AMIRAH MB-TYPE NATRIURETIC FACTOR (BNP)2020-07-20 05:34:00 Test Item Value Reference Range Interpretation Comments B-TYPE NATRIURETIC PEPTIDE (BEAKER) 213 pg/mL 0-100 H (test code = 700) Molasses Preparer ID - AMIRAH MCBC W/PLT COUNT & AUTO [id number] 05:16:00 Test Item Value Reference Range Interpretation [...] 0-1 PERCENT (BEAKER) (test code = 2801) CALCIUM, [id number] 04:56:00 Test Item Value Reference Range Interpretation Comments CALCIUM IONIZED (BEAKER) (test 1.16 mmol/L 1.12-1.27 code = 698) PH, BLOOD (BEAKER) (test code = 7.37 1810) POCT-GLUCOSE [id number] 21:18:00 Test Item Value Reference Range Interpretation Comments POC-GLUCOSE METER 333 mg/dL 70-110 H : TESTED A T [facility] 6720 (BEAKER) (test code = [facility], 1538) 06112: Molasses Preparer/Techni kate ID = [id number] for MAYELA DEMARCO POCT-GLUCOSE [id number] 17:10:00 Test Item Value Reference Range Interpretation Comments POC-GLUCOSE METER 286 mg/dL 70-110 H : TESTED A T [facility] 6720 (BEAKER) (test code = [facility], 1538) 45963: Molasses Preparer/Techni kate ID = [id number] for [place] [id number] 14:08:00 Test Item Value Reference Range Interpretation Comments PHOSPHORUS (BEAKER) (test code = 2.9 mg/dL 2.3-4.7 604) Molasses Preparer ID - [id number] 14:08:00 Test Item Value Reference Range Interpretation Comments MAGNESIUM (BEAKER) (test code = 1.9 mg/dL 1.6-2.6 627) Molasses Preparer ID - NTPBASIC METABOLIC [id number] 14:08:00 Test Item Value Reference Range Interpretation [...] S NOT APPLICABLE FOR DIALYSIS PATIEN TS. Molasses Preparer ID - NTPCALCIUM, [id number] 13:10:00 Test Item Value Reference Range Interpretation Comments CALCIUM IONIZED (BEAKER) (test 1.15 mmol/L 1.12-1.27 code = 698) PH, BLOOD (BEAKER) (test code = 7.37 1810) CBC W/PLT COUNT & AUTO [id number] 13:10:00 Test Item Value Reference Range Interpretation [...] PERCENT (BEAKER) (test code = 2801) POCT-GLUCOSE [id number] 12:39:00 Test Item Value Reference Range Interpretation Comments POC-GLUCOSE METER 152 mg/dL 70-110 H : TESTED A T [facility] 6720 (BEAKER) (test code = [facility], 153) 40315: Molasses Preparer/Techni kate ID = [id number] for [place] POCT-GLUCOSE [id number] 10:52:00 Test Item Value Reference Range Interpretation Comments POC-GLUCOSE METER 164 mg/dL 70-110 H : TESTED A T [facility] 6720 (BEAKER) (test code = [facility], 153) 25420: Molasses Preparer/Techni kate ID = [id number] for IRINEO ROONEY [id number] 09:42:00 Test Item Value Reference Range Interpretation Comments ACTIVATED CLOTTING TIME 219 sec : 74 -137 seconds, (BEAKER) (test code = Baseli ne: TESTED AT 441) [facility] 6720 [facility], 770 30: Molasses Preparer/Techni kate ID = [id number] for WANDA LAMB, MARINO [id number] 08:51:00 Test Item Value Reference Range Interpretation Comments ACTIVATED CLOTTING TIME 263 sec : 74 -137 seconds, (BEAKER) (test code = Baseli ne: TESTED AT 441) [facility] 6720 [facility], [facility] 30: Molasses Preparer/Techni kate ID = [id number] for HI GUY, MARINO SARS-COV2/RT-PCR ([facility])2020-07-19 00:30:00 Test Item Value Reference Range Interpretation Comments SARS-COV2/RT-PCR (test Negative Not Detected, Negative, code = 8015337) See external report for linked test SARS-COV-2 PERFORMING LAB [facility] KYA (test code = 9468549) Negative result for this test determines that [...] individuals suspected of COVID-19 by their healthcare provider.This test [...] justifying the authorization of the emergency use ofin vitro diagnostic tests for detection and/or diagnosis of COVID-19 is terminated under Section 564(b)(2) of the Act or the EUA is revoked under Section 564(g) of the Act.Fact Sheet for Healthcare Prov iders:https://www.[employer]eler[employer]/sites/default/files/product/documents/Fact_Sheet_HC _Qgksyklbo_Hsrq_QBVJ-WxH-2.pdfFact Sheet for Healthcare Patients:https://www.[employer]eler[employer]/sites/default/files/product/docume nts/Fesu_Nefvd_Qepzowwp_Jeqo_SGYW-SrV-4.pdfPerforming Laboratory:[facility] [place] [address] [facility], [place] [address]VREE-MJRRMTM METER 2020-07-18 21:25:00 Test Item Value Reference Range Interpretation Comments POC-GLUCOSE METER 111 mg/dL 70-110 H : TESTED A T [facility] 6720 (BEAKER) (test code = [facility] Deonte [facility], 1538) 092[address]: Molasses Preparer/Techni kate ID = [id number] for LORI CALLAHAN POCT-GLUCOSE [id number] 16:05:00 Test Item Value Reference Range Interpretation Comments POC-GLUCOSE METER 265 mg/dL 70-110 H : TESTED A T [facility] 6720 (BEAKER) (test code = MENA Clemons [facility], 1538) 19412: Molasses Preparer/Techni kate ID = [id number] for QUEEN WHITING [id number] 15:06:00 Test Item Value Reference Range Interpretation Comments PARTIAL THROMBOPLASTIN TIME 57.6 seconds 22.5-36.0 H (BEAKER) (test code = 760) POCT-GLUCOSE [id number] 11:35:00 Test Item Value Reference Range Interpretation Comments POC-GLUCOSE METER 255 mg/dL 70-110 H : TESTED A T [facility] 6720 (BEAKER) (test code = [facility] Deonte [facility], 1538) 089[address]: Molasses Preparer/Techni kate ID = [id number] for QUEEN WHITING CT, [id number] 09:48:00Unlisted Reason for Exam - Click Yes and Enter Reason Below->Yesextensive DVTUnlisted Reason for Exam->extensive DVT, extent of clot, any cause for extensive DVT?Addendum BeginsREPORT STATUS:A I agree with the nonvascular findings detailed by Dr. Schafer. Additional nonvascular finding includes: 1.5 x 1.4 cm hypodense parapelvic lesion in the anterior right interpolar region with apparent enhancement is suspicious for renal neoplasm such asrenal cell carcinoma. Abdomen MRI with and without intravenous contrast (renal mass protocol) may be obtained for further evaluation. Signed: Steven Benites MDReport Verified Date/Time: 07/18/2020 09:48:22 Reading Location: [address] Radiology Reading RoomAddendum EndsFINAL REPORT CT [...] as well as the 3-D specialist for optimalvisualisation of the abdominal aorta, pelvic arteries, and [...] to as low as reasonably achievable. FINDINGS: VASCULAR:The abdominal aorta is normal in course, calibre and contour. Scattered calcification is seen. No ectasia or aneurysmal dilation is identified. There is no evidence of acute aortic pathology, specifically, there is no dissection, intramural hematoma, or contained rupture. Quantitative dimensions of the abdominal aorta are as follows: 2.3 cm at the mesenteric segment; 1.9 cm at the renal segment,; and1.5 cm at the aortic bifurcation. The common [...] iliac and the right common femoral vein areseen to be patent. By Hounsfield unit measurement, adequate enhancement is seen, and no thrombus is identified. In contrary, persistent reduction in enhancement is identified in the LEFT common femoralvein and the left external iliac vein when compared to the right counterpart, raised concern for venous thrombus despite the veins are not dilated and no obvious inflammatory changes are seen. Adequateenhancement is identified in the left common iliac [...] left kidney, too small to characterise. Hypodensities areseen in the right kidney with no enhancement [...] pelvic veins are determined to be unremarkable. Subopt imal enhancement is identified in the LEFT EXTERNAL [...] described above. 5. An addendum will be dictatedregarding the non-vascular findings by the Programmer Business Radiologist. Pertinent findings were discussedwith the Programmer Business Client Manager Large Law at the time of dictation. Signed: Trenton Schafer MDReport Verified Date/Time: 07/17/2020 17:23:49 Reading Location: [place] [address] [address] Reading Room CALCIUM, IONIZED 2020-07-18 08:20:00 Test Item Value Reference Range Interpretation Comments CALCIUM IONIZED (BEAKER) (test 1.15 mmol/L 1.12-1.27 code = 698) PH, BLOOD (BEAKER) (test code = 7.34 1810) POCT-GLUCOSE [id number] 08:01:00 Test Item Value Reference Range Interpretation Comments POC-GLUCOSE METER 184 mg/dL 70-110 H : TESTED A T [facility] 6720 (BEAKER) (test code = [facility] [place], 1538) 18943: Molasses Preparer/Techni kate ID = [id number] for [place] WHITING CBC W/PLT COUNT & AUTO [id number] 07:17:00 Test Item Value Reference Range Interpretation [...] 0-1 PERCENT (BEAKER) (test code = 2801) [id number] 07:07:00 Test Item Value Reference Range Interpretation Comments PHOSPHORUS (BEAKER) (test code = 3.0 mg/dL 2.3-4.7 604) Molasses Preparer ID - [id number] 07:07:00 Test Item Value Reference Range Interpretation Comments MAGNESIUM (BEAKER) (test code = 1.8 mg/dL 1.6-2.6 627) Molasses Preparer ID - EDASICOMPREHENSIVE METABOLIC [id number] 07:07:00 Test Item Value Reference Range Interpretation [...] S NOT APPLICABLE FOR DIALYSIS PATIEN TS. Molasses Preparer ID - [id number] 06:26:00 Test Item Value Reference Range Interpretation Comments PARTIAL THROMBOPLASTIN TIME 60.2 seconds 22.5-36.0 H (BEAKER) (test code = 760) While on warfarin.PROTHROMBIN TIME/[id number] 06:24:00 Test Item Value Reference Range Interpretation [...] is 2.5-3.5 for patients wiht mechanical heart valves.While on warfarin.[id number] 23:06:00 Test Item Value Reference Range Interpretation Comments PARTIAL THROMBOPLASTIN TIME 49.8 seconds 22.5-36.0 H (BEAKER) (test code = 760) [id number] 21:00:00 Test Item Value Reference Range Interpretation Comments PARTIAL THROMBOPLASTIN TIME 117.2 seconds 22.5-36.0 H (BEAKER) (test code = 760) POCT-GLUCOSE [id number] 20:08:00 Test Item Value Reference Range Interpretation Comments POC-GLUCOSE METER 182 mg/dL 70-110 H : TESTED A T [facility] 6720 (BEAKER) (test code = [facility] oohilove [facility], 1538) 07723: Molasses Preparer/Techni kate ID = [id number] for KHALIDA OLIVEIRA POCT-GLUCOSE [id number] 15:38:00 Test Item Value Reference Range Interpretation Comments POC-GLUCOSE METER 233 mg/dL 70-110 H : TESTED A T [facility] 6720 (BEAKER) (test code = [facility], 1538) 430[address]: Molasses Preparer/Techni kate ID = [id number] for QUEEN WHITING [id number] 12:55:00 Test Item Value Reference Range Interpretation Comments PARTIAL THROMBOPLASTIN TIME 98.3 seconds 22.5-36.0 H (BEAKER) (test code = 760) POCT-GLUCOSE [id number] 11:33:00 Test Item Value Reference Range Interpretation Comments POC-GLUCOSE METER 253 mg/dL 70-110 H : TESTED A T [facility] 6720 (BEAKER) (test code = [facility], 1538) 21452: Molasses Preparer/Techni kate ID = [id number] for QUEEN WHITING POCT-GLUCOSE [id number] 07:41:00 Test Item Value Reference Range Interpretation Comments POC-GLUCOSE METER 203 mg/dL 70-110 H : TESTED A T [facility] 6720 (BEAKER) (test code = [facility], 1538) 75071: Molasses Preparer/Techni kate ID = [id number] for QUEEN WHITING URIC [id number] 07:18:00 Test Item Value Reference Range Interpretation Comments URIC ACID (BEAKER) (test code = 9.5 mg/dL 2.6-7.2 H 773) Molasses Preparer ID - [id number] 07:18:00 Test Item Value Reference Range Interpretation Comments MAGNESIUM (BEAKER) (test code = 1.8 mg/dL 1.6-2.6 627) Molasses Preparer ID - [id number] 07:18:00 Test Item Value Reference Range Interpretation Comments PHOSPHORUS (BEAKER) (test code = 3.2 mg/dL 2.3-4.7 604) Molasses Preparer ID - NTPCOMPREHENSIVE METABOLIC [id number] 07:18:00 Test Item Value Reference Range Interpretation [...] S NOT APPLICABLE FOR DIALYSIS PATIEN TS. Molasses Preparer ID - NTPCREATINE KINASE (CK)2020-07-17 07:18:00 Test Item Value Reference Range Interpretation Comments CREATINE KINASE TOTAL (BEAKER) (test 48 U/L 29-200 code = 380) Molasses Preparer ID - NTPB-TYPE NATRIURETIC FACTOR (BNP)2020-07-17 07:05:00 Test Item Value Reference Range Interpretation Comments B-TYPE NATRIURETIC PEPTIDE (BEAKER) 55 pg/mL 0-100 (test code = 700) Molasses Preparer ID - NTPCALCIUM, [id number] 06:53:00 Test Item Value Reference Range Interpretation Comments CALCIUM IONIZED (BEAKER) (test 1.17 mmol/L 1.12-1.27 code = 698) PH, BLOOD (BEAKER) (test code = 7.33 1810) [id number] 06:41:00 Test Item Value Reference Range Interpretation Comments PARTIAL THROMBOPLASTIN TIME 84.5 seconds 22.5-36.0 H (BEAKER) (test code = 760) While on warfarin.PROTHROMBIN TIME/[id number] 06:40:00 Test Item Value Reference Range Interpretation [...] is 2.5-3.5 for patients wiht mechanical heart valves.While on warfarin.CBC W/PLT COUNT & AUTO [id number] 06:34:00 Test Item Value Reference Range Interpretation [...] 0-1 PERCENT (BEAKER) (test code = 2801) [id number] 23:42:00 Test Item Value Reference Range Interpretation Comments PARTIAL THROMBOPLASTIN TIME 68.6 seconds 22.5-36.0 H (BEAKER) (test code = 760) POCT-GLUCOSE [id number] 20:54:00 Test Item Value Reference Range Interpretation Comments POC-GLUCOSE METER 206 mg/dL 70-110 H : TESTED A T [facility] 6720 (BEAKER) (test code = [facility] [place], 1538) 76[address]: Molasses Preparer/Techni kate ID = [id number] for BELLA, FREDDIE TTE U/S, RENAL, [id number] 20:34:00Reason for exam:->AKIFINAL REPORT Ultrasound of the Kidneys Clinical History: ROBERT Comparison: None. Discussion: Sonographic evaluation of the kidneys was performed. Right kidney: 10.5 x 4.2 x 4 cm, with cortical thickness of 0.9 cm. Normal cortical echogenicity. No mass. No shadowing calculus. No hydronephrosis. Left kidney: 11.1 x 5 x 4.3 cm, with cortical thickness of 1.5 cm. Normal cortical echogen icity. No mass. No shadowing calculus. No hydronephrosis. Limited doppler evaluation of bilateral main renal arteries and veins demonstrate patency. Bladder: Underdistended but otherwise unremarkable. Impression: No hydronephrosis. Signed: [facility] Verified Date/Time: 07/16/2020 20:34:22 CREATININE, RANDOM [id number] 18:48:00 Test Item Value Reference Range Interpretation Comments CREATININE URINE (BEAKER) (test 180.8 mg/dL code = 375) Reference Range: No NormalsOperator ID - ASPROTEIN, RANDOM [id number] 18:48:00 Test Item Value Reference Range Interpretation Comments PROTEIN, URINE (BEAKER) (test code = 27 mg/dL 0-14 H 1569) Molasses Preparer ID - ASSODIUM, RANDOM [id number] 18:48:00 Test Item Value Reference Range Interpretation Comments SODIUM URINE (BEAKER) (test code = 28 meq/L 243) Reference Range: No NormalsOperator ID - ASURINALYSIS W/ [id number] 17:19:00 Test Item Value Reference Range Interpretation [...] /LPF 514) SOURCE(BEAKER) (test code = 2795) Molasses Preparer ID - [auto]Molasses Preparer ID - [id number] 17:07:00 Test Item Value Reference Range Interpretation Comments PARTIAL THROMBOPLASTIN TIME 88.9 seconds 22.5-36.0 H (BEAKER) (test code = 760) POCT-GLUCOSE [id number] 16:59:00 Test Item Value Reference Range Interpretation Comments POC-GLUCOSE METER 199 mg/dL 70-110 H : TESTED A T [facility] 6720 (BEAKER) (test code = [facility] [place], 1538) 168[address]: Molasses Preparer/Techni kate ID = [id number] for BAHMAN KNAPP RAD, CHEST, 1 VIEW, NON [id number] 15:56:00Reason for exam:->Fluid overloadShould this be performed at the bedside?->YesFINAL REPORT CLINICAL HISTORY: Fluid overload TECHNIQUE: 1 view of the chest. CO MPARISON: 02/25/2017 IMPRESSION: There are no focal infiltrates or effusions. The cardiomediastinal silhouette is magnified by technique. The osseous structures appear intact. Signed: Petar Crowley Verified Date/Time: 07/16/2020 15:56:06 Reading Location: [facility] Reading Room POCT-GLUCOSE METER 2020-07-16 13:35:00 Test Item Value Reference Range Interpretation Comments POC-GLUCOSE METER 249 mg/dL 70-110 H : TESTED A T [facility] 6720 (BEAKER) (test code = [facility] [place], 1538) [address]: Molasses Preparer/Techni kate ID = [id number] for RU IZ, YENIFER PUL PERF IMAGING, [id number] 11:47:00Unlisted Reason for Exam - Click Yes and Enter Reason Below->Yes Unlisted Reason for Exam->Positive extensive LLE DVT, dyspneaFINAL REPORT PROCEDURE: LUNG SCAN - perfusion only CPT CODE: 99038 INDICATION: PE suspected, high pretest probability, positive DVT, treated with heparin PROTOCOL: 2.17 mCi of Tc-99m MAA was injected intravenously, and static perfusion images were obtained in standard eight projections. Ventilation imaging was not performed due to Covid 19 precautions. FINDINGS: Tracer distribution is heterogeneous, worse in the lung bases.. IMPRESSION: Abnormal perfusion lung scan. The findingsare atypical for acute pulmonary embolus but subacute embolus cannot be excluded Signed: Nicko Maynardort Verified Date/Time: 07/16/2020 11:47:57 Reading Location: [address] [address] Reading Room HEMOGLOBIN [id number] 11:33:00 Test Item Value Reference Range Interpretation Comments HEMOGLOBIN A1C (TIANAAKER) (test code = 9.6 % 4.3-6.1 H 368) [id number] 09:43:00 Test Item Value Reference Range Interpretation Comments PARTIAL THROMBOPLASTIN TIME 91.3 seconds 22.5-36.0 H (BEAKER) (test code = 760) [id number] 08:48:00 Test Item Value Reference Range Interpretation Comments PARTIAL THROMBOPLASTIN TIME > seconds 22.5-36.0 HH (BEAKER) (test code = 760) POCT-GLUCOSE [id number] 07:50:00 Test Item Value Reference Range Interpretation Comments POC-GLUCOSE METER 179 mg/dL 70-110 H : TESTED A T [facility] 6720 (BEAKER) (test code = ME[facility], 1538) 29111: Molasses Preparer/Techni kate ID = [id number] for BAHMAN KNAPP BASIC METABOLIC [id number] 06:44:00 Test Item Value Reference Range Interpretation [...] S NOT APPLICABLE FOR DIALYSIS PATIEN TS. Molasses Preparer ID - [id number] 06:36:00 Test Item Value Reference Range Interpretation Comments PARTIAL THROMBOPLASTIN TIME > seconds 22.5-36.0 HH (BEAKER) (test code = 760) PROTHROMBIN [id number] 06:17:00 Test Item Value Reference Range Interpretation [...] is 2.5-3.5 for patients wiht mechanical heart valves.Prior to initiating heparinWhile on warfarin.CBC W/PLT COUNT & AUTO [id number] 05:37:00 Test Item Value Reference Range Interpretation [...] (BEAKER) (test code = 413) CREATININE, RANDOM [id number] 04:55:00 Test Item Value Reference Range Interpretation Comments CREATININE URINE (BEAKER) (test 135.0 mg/dL code = 375) Reference Range: No NormalsOperator ID - DBSODIUM, RANDOM [id number] 04:55:00 Test Item Value Reference Range Interpretation [...] S NOT APPLICABLE FOR DIALYSIS PATIEN TS. Molasses Preparer ID - [id number] 15:22:00 Test Item Value Reference Range Interpretation Comments PARTIAL THROMBOPLASTIN TIME 27.9 seconds 22.5-36.0 (BEAKER) (test code = 760) PROTHROMBIN [id number] 15:21:00 Test Item Value Reference Range Interpretation [...] is 2.5-3.5 for patients wiht mechanical heart valves.CBC W/PLT COUNT & AUTO [id number] 15:16:00 Test Item Value Reference Range Interpretation [...] 0-1 PERCENT (BEAKER) (test code = 2801) Potassium [id number] 13:11:00 Test Item Value Reference Range Interpretation Comments K (test code = 2842712744) 4.9 mmol/L 3.5-5 Lab Interpretation (test code = Normal 03861-1[id number] 12:32:00 Test Item Value Reference Range Interpretation Comments POCT Glu (age>30days) (test code = 156 mg/dL 70-110 A 3342) Lab Interpretation (test code = Abnormal 88515-8) [facility] [id number] 14:11:00 Test Item Value Reference Range Interpretation Comments HEMOGLOBIN A1C (BEAKER) (test code = 9.4 % 4.3-6.1 H 368) TSH/FREE T4 IF [id number] 12:24:00 Test Item Value Reference Range Interpretation Comments THYROID STIMULATING HORMONE 1.808 uIU/mL 0.350-4.940 (BEAKER) (test code = 772) Molasses Preparer ID - ADMINLIPID [id number] 12:05:00 Test Item Value Reference Range Interpretation [...] Borderline 130-159 High 160-189 Very High >=190 Molasses Preparer ID - ADMINCOMPREHENSIVE METABOLIC [id number] 12:05:00 Test Item Value Reference Range Interpretation [...] S NOT APPLICABLE FOR DIALYSIS PATIEN TS. Molasses Preparer ID - ADMINHEMOGLOBIN [id number] 12:22:00 Test Item Value Reference Range Interpretation Comments HEMOGLOBIN A1C (BEAKER) (test code = 8.2 % 4.3-6.1 H 368) TSH/FREE T4 IF [id number] 11:50:00 Test Item Value Reference Range Interpretation Comments THYROID STIMULATING HORMONE 2.52 uIU/mL 0.35-4.94 (BEAKER) (test code = 772) COMPREHENSIVE METABOLIC [id number] 11:34:00 Test Item Value Reference Range Interpretation [...] PATIEN TS. CBC W/PLT COUNT & AUTO [id number] 11:15:00 Test Item Value Reference Range Interpretation [...] (BEAKER) (test code = 2801) BASIC METABOLIC [id number] 13:57:00 Test Item Value Reference Range Interpretation [...] PATIEN TS. CBC W/PLT COUNT & AUTO [id number] 13:35:00 Test Item Value Reference Range Interpretation [...] PERCENT (BEAKER) (test code = 2801) HEMOGLOBIN [id number] 13:45:00 Test Item Value Reference Range Interpretation Comments HEMOGLOBIN A1C (BEAKER) (test code = 7.9 % 4.3-6.1 H 368) TSH/FREE T4 IF [id number] 12:54:00 Test Item Value Reference Range Interpretation Comments THYROID STIMULATING HORMONE 2.71 uIU/mL 0.35-4.94 (BEAKER) (test code = 772) LIPID [id number] 11:16:00 Test Item Value Reference Range Interpretation Comments TRIGLYCERIDES (BEAKER) (test code = 158 mg/dL 540) CHOLESTEROL (BEAKER) (test code = 108 mg/dL 631) HDL CHOLESTEROL (BEAKER) (test code 27 mg/dL = 976) LDL CHOLESTEROL CALCULATED (BEAKER) 49 mg/dL (test code = 633) Triglyceride Reference Range: Low Risk <150 Borderline 150-199 High Risk 200- 499 Very High Risk >=500Cholesterol Reference Range: Low Risk <200 Borderline 200-239 High Risk >240HDL Cholesterol Reference Range: Low Risk >=60 High Risk <40LDL Cholesterol Reference Range: Optimal <100 Near Optimal 100-129 Borderline 130-159 High 160-189 Very High >=190COMPREHENSIVE METABOLIC [id number] 11:16:00 Test Item Value Reference Range Interpretation [...] PATIEN TS. CBC W/PLT COUNT & AUTO [id number] 10:52:00 Test Item Value Reference Range Interpretation [...] PERCENT (BEAKER) (test code = 2801) HEMOGLOBIN [id number] 11:30:00 Test Item Value Reference Range Interpretation Comments HEMOGLOBIN A1C (BEAKER) (test code = 8.5 % 4.3-6.1 H 368) HEMOGLOBIN [id number] 13:33:00 Test Item Value Reference Range Interpretation Comments HEMOGLOBIN A1C (BEAKER) (test code = 10.9 % 4.3-6.1 H 368) TSH/FREE T4 IF [id number] 12:27:00 Test Item Value Reference Range Interpretation Comments THYROID STIMULATING HORMONE 2.33 uIU/mL 0.35-4.94 (BEAKER) (test code = 772) LIPID [id number] 12:10:00 Test Item Value Reference Range Interpretation Comments TRIGLYCERIDES (BEAKER) (test code = 116 mg/dL 540) CHOLESTEROL (BEAKER) (test code = 130 mg/dL 631) HDL CHOLESTEROL (BEAKER) (test code 34 mg/dL = 976) LDL CHOLESTEROL CALCULATED (BEAKER) 73 mg/dL (test code = 633) Triglyceride Reference Range: Low Risk <150 Borderline 150-199 High Risk 200- 499 Very High Risk >=500Cholesterol Reference Range: Low Risk <200 Borderline 200-239 High Risk >240HDL Cholesterol Reference Range: Low Risk >=60 High Risk <40LDL Cholesterol Reference Range: Optimal <100 Near Optimal 100-129 Borderline 130-159 High 160-189 Very High >=190COMPREHENSIVE METABOLIC [id number] 12:10:00 Test Item Value Reference Range Interpretation [...] NOT APPLICABLE FOR DIALYSIS PATIEN TS. HEMOGLOBIN [id number] 13:44:00 Test Item Value Reference Range Interpretation Comments HEMOGLOBIN A1C (BEAKER) (test code = 10.8 % 4.3-6.1 H 368) HEMOGLOBIN [id number] 09:58:00 Test Item Value Reference Range Interpretation Comments HEMOGLOBIN A1C (BEAKER) (test code = 8.3 % 4.3-6.1 H 368) TSH/FREE T4 IF [id number] 13:49:00 Test Item Value Reference Range Interpretation Comments THYROID STIMULATING HORMONE 1.94 uIU/mL 0.35-4.94 (BEAKER) (test code = 772) HEMOGLOBIN [id number] 12:27:00 Test Item Value Reference Range Interpretation Comments HEMOGLOBIN A1C (BEAKER) (test code = 11.3 % 4.3-6.1 H 368) LIPID [id number] 11:56:00 Test Item Value Reference Range Interpretation Comments TRIGLYCERIDES (BEAKER) (test code = 162 mg/dL 540) CHOLESTEROL (BEAKER) (test code = 136 mg/dL 631) HDL CHOLESTEROL (BEAKER) (test code 33 mg/dL = 976) LDL CHOLESTEROL CALCULATED (BEAKER) 71 mg/dL (test code = 633) Triglyceride Reference Range: Low Risk <150 Borderline 150-199 High Risk 200- 499 Very High Risk >=500Cholesterol Reference Range: Low Risk <200 Borderline 200-239 High Risk >240HDL Cholesterol Reference Range: Low Risk >=60 High Risk <40LDL Cholesterol Reference Range: Optimal <100 Near Optimal 100-129 Borderline 130-159 High 160-189 Very High >=190COMPREHENSIVE METABOLIC [id number] 11:56:00 Test Item Value Reference Range Interpretation [...] S NOT APPLICABLE FOR DIALYSIS PATIEN TS. [id number] 09:01:00 Test Item Value Reference Range Interpretation [...] 95-100% range. CREATINE KINASE (CK), TOTAL AND [id number] 09:01:00 Test Item Value Reference Range Interpretation Comments CREATINE KINASE TOTAL (BEAKER) 43 U/L 29-200 (test code = 380) CREATINE KINASE-MB (BEAKER) (test 0.7 ng/mL 0.0-6.6 code = 750) CREATINE KINASE-MB INDEX (BEAKER) 1.6 % (test code = 395) Effective 10/16/2014: CK-MB Reference Range ChangeNew: 0.0-6.6 Previous: 0.0-4.9CK-MB Reference Range:<6.7 Normal6.7-10.0 Borderline>10.0 Abnormal TROPONIN [id number] 09:01:00 Test Item Value Reference Range Interpretation Comments TROPONIN I (BEAKER) (test code = 0.02 ng/mL 0.00-0.03 397) Effective 10/16/2014: Reference Range ChangeNew: 0.00-0.03 Previous 0.00- 0.15Troponin I (TnI) levelsmust be interpreted in the context of the presenting symptoms and the clinical findings. Elevated TnI levels indicate myocardial damage, but are not specific for ischemic heart disease. Elevated TnI levels are seen in patients with other cardiac conditions (including myocarditis and congestive heart failure), and slight TnI elevations occur in patients with other conditions, including sepsis, renal failure, acidosis, acute neurological disease, and persistent tachyarrhythmia.BASIC METABOLIC [id number] 08:53:00 Test Item Value Reference Range Interpretation [...] PATIEN TS. CBC W/PLT COUNT & AUTO [id number] 08:30:00 Test Item Value Reference Range Interpretation [...]
[2023-07-02 11:58] LABS: Absolute Lymphocytes (CBC) 2.6 K/uL (0.7-4.9); Hematocrit 42.1 % (36.0-45.0); Lymphocytes % 32.3 % (15.3-44.8); MCV 86.6 fL (80-100); MPV 9.1 fL (7.6-11.3); RBC Red Blood Cell Count 4.86 M/uL (3.86-4.86)
[2023-07-02 12:08] LABS: Specific Gravity 1.009 (1.005-1.030); Urine Bilirubin NEGATIVE (Negative); Urine Blood Negative (Negative); Urine Clarity Clear (Clear); Urine Color Colorless (Yellow); Urine Glucose 4+ (Over) (Negative); Urine Protein NEGATIVE (Negative); Urine Urobilinogen Normal (Normal)
[2023-07-02 12:17] LABS: Albumin 3.6 g/dL (3.4-5.0); Bilirubin Total 0.8 mg/dL (0.2-1.0); Potassium 2.7 mEq/L (3.5-5.1); Protein, Total 8.2 g/dL (6.4-8.2)
[2023-07-02] MEDS ORDERED: NA CHLORIDE 0.9% 1,000 ML ONE (12:35)
[2023-07-02] MEDS ORDERED: POTASSIUM CL SA 10 MEQ TAB PO ONE (12:35)
--- NOTE | 2023-07-02 12:57 | RAD REPORT ---
EXAM DESCRIPTION: CT - Abdomen Pelvis Wo Contrast - 07/02/2023 12:39 pm CLINICAL HISTORY: Abdominal pain COMPARISON: 2019 TECHNIQUE: Computed axial tomography of the abdomen and pelvis was obtained. IV and oral contrast we re not requested. All CT scans are performed using dose optimization technique as appropriate and may include automated exposure control or mA/KV adjustment according to patient size. FINDINGS: The evaluation of solid organs, vessels and bowel is limited secondary to the lack of con trast administration. Cholecystectomy. The liver, spleen, pancreas, adrenals and kidneys appear grossly normal. The appendix is normal. There is no evidence of diverticulitis. Calcified uterine fibroids without significant change. No adnexal mass IMPRESSION: No acute abnormality is displayed.
--- NOTE | 2023-07-02 14:21 | ER ---
Nurse's Notes [facility] Name: Terese Alaniz Age: 63 yrs Sex: Female : 1960 Arrival Date: 07/02/2023 Time: 10:51 Bed 8 Private MD: Diagnosis: Abdominal pain, Generalized;Chronic kidney disease, unspecified Presentation: 07/02 11:13 Chief complaint: Patient states: Decreased appetite x 2 weeks. Upset stomach, nausea ss and lower abd pain and back pain x 1 week. Coronavirus screen: Client denies travel out of the [place] in the last 14 days. Ebola Screen: Patient denies exposure to infectious person. Patient denies travel to an Ebola-affected area in the 21 days before illness onset. Initial Sepsis Screen: Does the patient meet any 2 criteria? No. Patient's initial sepsis screen is negative. Does the patient have a suspected source of infection? No. Patient's initial sepsis screen is negative. Risk Assessment: Do you want to hurt yourself or someone else? Patient reports no desire to harm self or others. Onset of symptoms was May 2023. 11:13 Method Of Arrival: Ambulatory ss 11:13 Acuity: VISHNU 3 ss Triage Assessment: 11:15 General: Appears in no apparent distress. Behavior is calm, cooperative, appropriate bp for age. Pain: Complains of pain in abdomen. EENT: No deficits noted. Neuro: No deficits noted. Cardiovascular: No deficits noted. Respiratory: No deficits noted. GI: Reports lower abdominal pain, diarrhea. : No signs and/or symptoms were reported regarding the genitourinary system. Derm: No deficits noted. Musculoskeletal: No deficits noted. Historical: - PMHx: 11:14 CHF; Diabetes - IDDM; High Cholesterol; Hypertension; ss - Immunization history:: Adult Immunizations up to date. - Social history:: Smoking status: Patient denies any tobacco usage or history of. Screenin:15 [facility] ED Fall Risk Assessment (Adult) History of falling in the last 3 months, bp including since admission No falls in past 3 months (0 pts). Abuse screen: Denies threats or abuse. Denies injuries from another. Nutritional screening: No deficits noted. Tuberculosis screening: No symptoms or risk factors identified. Assessment: 11:15 General: SEE TRIAGE NOTE. bp Vital Signs: 11:13 Pulse 62; Resp 16; Pulse Ox 97% on R/A; Weight 109.77 kg; Height 5 ft. 2 in. ; Pain ss 8/10; 11:14 BP 123 / 68; Temp 97.9(O); ss 11:15 BP 123 / 68; ss 13:23 BP 134 / 86; Pulse 68; Resp 18; Pulse Ox 98% ; ko1 14:27 BP 136 / 82; Pulse 72; Resp 16; Pulse Ox 99% ; ko1 11:13 Body Mass Index 44.26 (109.77 kg, 157.48 cm) ss 11:13 Pain Scale: Adult ss ED Course: 10:55 Patient arrived in ED. im 11:12 Sirisha Judd FNP-C is PHCP. kb 11:13 John Alcaraz MD is Attending Physician. kb 11:14 Triage completed. ss 11:14 Arm band placed on left wrist. ss 11:15 Patient has correct armband on for positive identification. Bed in low position. Call bp light in reach. Side rails up X2. 11:27 Joan Cole, JEWELL is Primary Nurse. ko1 11:47 Inserted saline lock: 20 gauge in left antecubital area, using aseptic technique. Blood bp collected. 12:40 Abdomen In Process Unspecified. EDMS 14:27 Provided Education on: NA. ko1 14:27 No provider procedures requiring assistance completed. IV discontinued, intact, ko1 bleeding controlled, No redness/swelling at site. Pressure dressing applied. Administered Medications: 12:30 Drug: NS 0.9% IV 1000 ml Route: IV; Rate: 1000 ml; Site: left antecubital; dd1 12:30 Drug: Potassium Chloride PO 40 mEq Route: PO; dd1 Medication: 11:15 VIS not applicable for this client. bp Outcome: 14:21 Discharge ordered by . kb 14:27 Discharged to home via wheelchair, with family. ko1 14:27 Condition: improved 14:27 Discharge instructions given to patient, Instructed on discharge instructions, follow up and referral plans. medication usage, Demonstrated understanding of instructions, follow-up care, medications, Prescriptions given X 1. 14:31 Patient left the ED. ko1 Signatures: Dispatcher [employer] EDND Sirisha Judd FNP-C FNP-Ckb Blanchard, Shelby, RN RN Jose Agudelo, RN RN Joan Gibson, JEWELL RN ko1 Ruth Pruett Daniel RN RN dd1 Corrections: (The following items were deleted from the chart) 14:30 14:27 Discharged to home ambulatory, ko1 ko1
--- NOTE | 2023-07-02 14:21 | EDPHYS ---
Physician Documentation [facility] Name: Terese Alaniz Age: 63 yrs Sex: Female : 1960 Arrival Date: 07/02/2023 Time: 10:51 Bed 8 Private MD: ED Physician John Alcaraz HPI: 07/02 17:17 This 63 yrs old Female presents to ER via Ambulatory with complaints of kb Abdominal Pain, Headache, Low Back Pain. 17:17 The patient presents with abdominal pain. Onset: The symptoms/episode began/occurred 2 kb week(s) ago. The symptoms do not radiate. Associated signs and symptoms: Pertinent positives: nausea, low back pain, Pertinent negatives: constipation, diarrhea, fever, vomiting. The patient has not recently seen a physician. 17:17 The symptoms are described as constant. Modifying factors: The symptoms are alleviated kb by nothing, the symptoms are aggravated by nothing. Severity of pain: At its worst the pain was mild moderate in the emergency department the pain is unchanged. The patient has not experienced similar symptoms in the past. Pt reports diffuse abd pain for 2 weeks with low back pain and nausea over the last week. Historical: - PMHx: 11:14 CHF; Diabetes - IDDM; High Cholesterol; Hypertension; ss - Immunization history:: Adult Immunizations up to date. - Social history:: Smoking status: Patient denies any tobacco usage or history of. ROS: 17:17 Constitutional: Negative for fever, chills, and weight loss. kb 17:17 Abdomen/GI: Positive for abdominal pain, nausea, Negative for vomiting, diarrhea, constipation. 17:17 Back: Positive for pain at rest, pain with movement. 17:17 All other systems are negative. Exam: 17:17 Constitutional: This is a well developed, well nourished patient who is awake, alert, kb and in no acute distress. Head/Face: Normocephalic, atraumatic. ENT: Moist Mucous membranes Cardiovascular: Regular rate and rhythm with a normal S1 and S2. No gallops, murmurs, or rubs. No pulse deficits. Respiratory: Respirations even and unlabored. No increased work of breathing. Talking in full sentences Abdomen/GI: Soft, non-tender. No distention Back: No spinal tenderness. No costovertebral tenderness. Full range of motion. Skin: Warm, dry with normal turgor. Normal color. MS/ Extremity: Pulses equal, no cyanosis. Neurovascular intact. Full, normal range of motion. Neuro: Awake and alert, GCS 15, oriented to person, place, time, and situation. Moves all extremities. Normal gait. Vital Signs: 11:13 Pulse 62; Resp 16; Pulse Ox 97% on R/A; Weight 109.77 kg; Height 5 ft. 2 in. ; Pain ss 8/10; 11:14 BP 123 / 68; Temp 97.9(O); ss 11:15 BP 123 / 68; ss 13:23 BP 134 / 86; Pulse 68; Resp 18; Pulse Ox 98% ; ko1 14:27 BP 136 / 82; Pulse 72; Resp 16; Pulse Ox 99% ; ko1 11:13 Body Mass Index 44.26 (109.77 kg, 157.48 cm) ss 11:13 Pain Scale: Adult ss MDM: 11:13 Patient medically screened. kb 17:17 Differential diagnosis: Cholelithiasis, gastritis, gastroesophageal reflux disease, kb non-specific abd pain, Pyelonephritis, Ureterolithiasis, urinary tract infection. Data reviewed: vital signs, nurses notes. Counseling: I had a detailed discussion with the patient and/or guardian regarding: the historical points, exam findings, and any diagnostic results supporting the discharge/admit diagnosis, lab results, radiology results, the need for outpatient follow up, a family practitioner, to return to the emergency department if symptoms worsen or persist or if there are any questions or concerns that arise at home. ED course: Pt reports a history of chronic kidney disease, has a grocery team member in [place] and will follow up. States she has an appt already scheduled for next month, but will call to make an earlier appt. 07/02 11:16 Order name: CBC with Diff; Complete Time: 12:03 kb 07/02 11:16 Order name: CMP; Complete Time: 12:21 kb 07/02 11:16 Order name: Lipase; Complete Time: 12:21 kb 07/02 11:16 Order name: Urinalysis w/ reflexes; Complete Time: 12:11 kb 07/02 12:30 Order name: Abdomen ; Complete Time: 13:00 EDMS 07/02 12:22 Order name: EKG; Complete Time: 12:22 kb 07/02 11:16 Order name: IV Saline Lock; Complete Time: 11:47 kb 07/02 11:16 Order name: Labs collected and sent; Complete Time: 11:47 kb 07/02 12:22 Order name: EKG - Nurse/Tech; Complete Time: 12:34 kb Administered Medications: 12:30 Drug: NS 0.9% IV 1000 ml Route: IV; Rate: 1000 ml; Site: left antecubital; dd1 12:30 Drug: Potassium Chloride PO 40 mEq Route: PO; dd1 Disposition: 18:25 Co-signature as Attending Physician, John Alcaraz MD I reviewed the patient's care rt provided by the Advanced Practice Provider and agree with the diagnosis and treatment plan. Disposition Summary: 07/02/23 14:21 Discharge Ordered Location: Home kb Condition: Stable kb Diagnosis - Abdominal pain, Generalized kb - Chronic kidney disease, unspecified kb Followup: kb - With: Emergency Department - When: As needed - Reason: Worsening of condition Followup: kb - With: Private Physician - When: 2 - 3 days - Reason: Recheck today's complaints, Continuance of care, Re-evaluation by your physician Discharge Instructions: - Discharge Summary Sheet kb - Abdominal Pain, Adult, [id number] kb - Chronic Kidney Disease, Adult, [id number] kb Forms: - Medication Reconciliation Form kb - Thank You Letter kb - Antibiotic Education kb - Prescription Opioid Use kb - Patient Portal Instructions kb Prescriptions: - Zofran 4 mg Oral Tablet - take 1 tablet by ORAL route every 6 hours As needed; 10 tablet; Refills: 0, kb Product Selection Permitted Signatures: Dispatcher [employer] EDLA Sirisha Judd, HAIRCUTTER-C HAIRCUTTER-Clotilde Staley, RN JEWELL ss Jose Padron, JEWELL CORCORAN bp John Alcaraz MD MD rt Iván Pickard, RN RN dd1 Corrections: (The following items were deleted from the chart) 12:30 11:17 Abdomen Pelvis W [id number] ordered. EDLA EDMS 17:18 17:17 Associated signs and symptoms: Pertinent positives: nausea, kb kb
[2023-07-02 14:56] VITALS: TEMP 97.9
[2023-07-02 15:00] VITALS: BP 136/82; O2SAT 99
--- NOTE | 2023-07-05 13:12 | EKG ---
Test Date: 2023-07-02 Test Time: 12:32:04 Medical Assistant Internal Medicine: BP MEASUREMENT RESULTS: Intervals: Rate: 57 WY: 212 QRSD: 170 QT: 540 QTc: 525 [place]: P: 16 WY: 212 QRS: 239 T: 28 INTERPRETIVE STATEMENTS: Sinus bradycardia with 1st degree AV block Nonspecific intraventricular block Lateral infarct, age undetermined Abnormal ECG Compared to ECG 03/28/2021 01:52:12 Myocardial infarct finding now present Atrial premature complex(es) no longer present Aberrant conduction of supraventricular beat(s) no longer present Left-axis deviation no longer present Left bundle-branch block no longer present Electronically Signed On 07-05-23 13:08:15 CDT by Jasmeet Stanford
== END 2023-07-02 14:31 | disposition home or self-care (01) ==
LOC: ER 10:51
DX: E11.22 Type 2 diabetes mellitus with diabetic chronic kidney disease (principal); I13.0 Hypertensive heart and chronic kidney disease with heart failure and stage 1 through stage 4 chronic kidney disease, or unspecified chronic kidney disease; N18.9 Chronic kidney disease, unspecified; I50.9 Heart failure, unspecified
CPT/HCPCS: 93005; 85025; 36415; 81003; 83690; 80053; 74176; 99284; J7030

== ENCOUNTER 2023-10-27 10:29 | Emergency (ER) | payer OTHER ==
--- OUTSIDE RECORDS SUMMARY | 2023-10-27 10:49 | XMS REPORT | Continuity of Care Document ---
:1960 Author Organization [facility] t Address [address] [place] [address] Care Team Providers Name Role Phone SINCERE WADE Primary Care Physician Unavailable KASIE, VAMSHI P Attending Clinician Unavailable VENITA MARES Attending Clinician Unavailable Moustapha Espinosa MD Attending Clinician Georgina Mcnamara Attending Clinician Unavailable TAVON TO Attending Clinician Unavailable Sincere Wade MD Attending Clinician SINCERE WADE Attending Clinician Unavailable Venita Dejesus MD Attending Clinician VENITA DEJESUS Attending Clinician Unavailable Eleanor Miner RN Attending Clinician Unavailable MAURA SCHMID Attending Clinician Unavailable Maura Schimd MD Attending Clinician [phone] Ministerio Cervantes MD Attending Clinician Brian Disla Attending Clinician DANE GODOY Attending Clinician Unavailable Екатерина GILLESPIE, Stephanie Younger Attending Clinician Evon Hensley MD Attending Clinician Jose Elias Puri MD Attending Clinician Walt GILLESPIE, Dane Hardwick Attending Clinician Anthony Rausch MD Attending Clinician KAT ROMAN Attending Clinician Unavailable Jessie GILLESPIE, Kat Monte Attending Clinician Kwame GILLESPIE, Steffanie Pham Attending Clinician Aretha GILLESPIE, Shawn Gonzalez Attending Clinician [phone] Ching GILLESPIE, Julia Patricio Attending Clinician [phone] JULIA COCHRAN Attending Clinician Unavailable Cindy Davis Attending Clinician Unavailable Iveth Aguayo Attending Clinician Unavailable Pranav Bradford Attending Clinician Unavailable PRITESH ROCKWELL Attending Clinician Unavailable Nurse, Adc Pob Immunization Attending Clinician Unavailable Pritesh Rockwell DO Attending Clinician Aneta Boucher MD Attending Clinician Mike GILLESPIE, Keke Prabhakar Attending Clinician Jana Valdovinos MD Attending Clinician GUSTAVO ESPINOSA Attending Clinician Unavailable Gavin Thapa MD Attending Clinician PENG TAVARES Attending Clinician Unavailable Pcp, Patient Does Not Have A Attending Clinician [phone] Martita Hutson Attending Clinician Lab, Adc Fam Pob I Attending Clinician Unavailable Pob, Adc Lab Main Attending Clinician Unavailable Doctor Unassigned, Calera Attending Clinician Unavailable BRIAN HART Attending Clinician Unavailable Venita Mares MD Attending Clinician Only, Adc Test Attending Clinician Unavailable MOUSTAPHA ESPINOSA Attending Clinician Unavailable ELSA AVITIA Attending Clinician Unavailable TAVON TO Admitting Clinician Unavailable VENITA MARES Admitting Clinician Unavailable VENITA DEJESSU Admitting Clinician Unavailable MAURA SCHMID Admitting Clinician Unavailable EVON HENSLEY Admitting Clinician Unavailable JULIA COCHRAN Admitting Clinician Unavailable JANA VALDOVINOS Admitting Clinician Unavailable ANDREW CHRISTIANSON Admitting Clinician Unavailable Suzan GILLESPIE, Venita Asher Admitting Clinician Payers Payer Name Policy Type Policy Number Effective Date Expiration Date S nikos MEDICARE A B [id number] 2012 00:00:00 [place]ID [place] [id number] 2023 00:00:00 MEDICARE PART A [id number] 2012 \\T\\ B 00:00:00 CDC REVIEW [id number] 2020 00:00:00 Problems Condition Condition Condition Status [...] r 00 l contractio contractio n) n) Arrhythmia Arrhythmia Disease [facility] 00 [place] CHF CHF Disease Recurre [facility] exacerbati exacerbati nce 4-14 [facility] on on 00:00: Medical 00 [place] SOB SOB Disease Active [facility] (shortness (shortness 4-14 [facility] of breath) of breath) 00:00: Me dical 00 [place] Hyperglyce Hyperglyce Disease Recurre 2021-[address] [facility] alejandro due to alejandro due to nce 2-16 [facility] diabetes diabetes 00:00: Medica l mellitus mellitus 00 Center Hypotensio Hypotensio Disease Active 2021-[address] n n 2-16 [facility] Medical 00 [place] Hyponatrem Hyponatrem Disease Active 2021-[address] ia ia 2-16 [facility] 00:[facility]: Medical 00 [place] Essential Essential Disease Active 2021-11 Met hodi [...] Chest pain Disease Active [facility] HTN HTN Disease Active [facility] (hypertens (hypertens 07-05 [facility] ion) ion) 00:00: Medical 00 Center Type 2 Type [address] [facility] diabetes diabetes nce 07-05 [facility] mellitus mellitus 00:00: Medica l with with 00 Center diabetic diabetic nephropath nephropath y y No known No known Disease Unive rs active active ity of problems problems [facility] Allergies, Adverse Reactions, Alerts Allergy Allergy Status Severity Reaction(s) Onset Inactive Treating Comm ents Source Name Type Date Date Clinician NO KNOWN Drug Active Univers ALLERGIE Class ity of [facility] NO KNOWN Allergy Active [facility] ALLERGIE [facility] Family History Family Member Diagnosis Comments Start Date Stop Date Source Natural [facility] Natural father Diabetes [facility] Natural father Diabetes [facility] Natural father Heart disease [facility] mother [facility] Natural brother Diabetes [facility] Natural sister Diabetes [facility] Social History Social Habit Start Date Stop Date Quantity Comments Source History [facility] Sexual orientation Method ist Hospital Exposure to Not sure University of SARS-CoV-2 (event) [facility] Gender identity [facility] Alcohol intake 2023-08-17 2023-08-17 Lifetime Denominational 00:00:00 00:00:00 non-drinker Hospital (finding) History of Social 2023-08-17 2023-08-[address] function 00:00:00 00:00:00 Hospital History SDOH 2023-04-02 2023-04-[address] [facility] Homeless 00:00:00 00:00:00 Medical Center Last Year History SDOH 2023-03-13 2023-03-[address] [facility] Transport Med 00:00:00 00:00:[address] History SDOH 2023-03-13 2023-03-[address] [facility] Housing Unable to 00:00:00 00:00:00 Medical Center Pay History SDOH 2023-03-13 2023-03-[address] [facility] Housing Places 00:00:00 00:00:00 Medical Ce nter Lived Tobacco use and 2022-09-11 2022-09-11 Smokeless Denominational exposure 00:00:00 00:00:00 tobacco non-user Hospital Sex Assigned At [birth year] Denominational 00:00:00 00:00:00 Hospital Smoking Status Start Date Stop Date Source Never smoked tobacco [facility] Unknown if ever smoked [facility] Medications Ordered Filled Start Stop Current Ordering Indication Dosage Frequency Signature Comments Components Source Medication Medication Date Date Medication? Clinician (SIG) Name Name melatonin 3 Yes 6mg QD Take 2 Meth mg mg tablet 9-19 tablets (6 st 10:21: mg total) Hospita 50 by mouth l nightly. aspirin Yes 81mg Take 1 Methodi (ECOTRIN) 9-19 tablet (81 st 81 MG 10:21: mg total) Hospita enteric 32 by mouth. l coated tablet atorvastati Yes 80mg QD Take 1 Meth mg n (LIPITOR) 8-16 tablet (80 st 80 MG 00:00: mg total) Hospita tablet 00 by mouth l nightly. insulin 2022- No type 2 40U Q.5D Inject [address] glargine 7-14 07-14 diabetes Units [facility] (LANTUS, 12:22: 00:00 [facility] :00 usly 2 Center 100 unit/mL (two) injection times daily Use as directed. pregabalin Yes 75mg Q.5D Take 1 [facility] (LYRICA) 75 7-14 capsule [facility] MG capsule 11:00: (75 mg Medic al 44 total) by Center mouth 2 (two) times daily. Max Daily Amount: 150 mg insulin Yes type 2 40U Q.5D Inject [address] glargine 7-14 diabetes Units [facility] (LANTUS, 00:00: mellitus subcutaneo Medical SEMGLEE) 00 usly 2 Center 100 unit/mL (two) injection times daily Use as directed. dapaglifloz Yes 10mg QD Take [address] [facility] in 7-14 tablet (10 [facility] (FARXIGA) 00:00: mg total) Med ical 10 mg 00 by mouth Center tablet daily. atorvastati Yes 20mg QD Take [address] n (LIPITOR) -14 tablet (20 [facility] 20 MG 00:00: mg total) Medical tablet 00 by mouth Center every evening. aspirin 81 2023- No 81mg QD Take [address] MG chewable 06-11 07-13 tablet (81 L ukes tablet 00:00: 23:59 mg total) Medic al 00 :00 by mouth Center daily. semaglutide 2022- No 2mg Q7D Inject [address] (Ozempic) 06-11 10-12 mg [facility] 0.25 mg or 00:00: 23:59 subcutaneo Medical 0.5 mg (2 00 :00 usly once Cente r mg/3 mL) a week for PnIj 90 days. insulin 2022- No 15U Inject [address] aspart - 10-12 Units [facility] U-100 00:00: 23:59 subcutaneo Medic al (NovoLOG) 00 :00 usly 3 Center 100 unit/mL (three) injection times daily before meals for 90 days. torsemide 2022- No 40mg Q.5D Take [address] 40 mg Tab 06-11 10-12 by mouth 2 Vipin es 00:00: 23:59 (two) Medical 00 :00 times Center daily for 90 days. traZODone 2022- No 50mg QD Take 1 [facility] (DESYREL) 06-11 08-13 tablet (50 Vipin es 50 MG 00:00: 23:59 mg total) Medica l tablet 00 :00 by mouth Center nightly for 30 days. traMADoL 2022- No 50mg Take [address] [facility] (ULTRAM) 50 06-11 07-24 tablet (50 L [facility]kes mg tablet 00:00: 23:59 mg total) Me dical 00 :00 by mouth Center every 6 (six) hours as needed for Pain for up to 10 days. Max Daily Amount: 200 mg calcium 2022- No 1{tbl} Q7D Take 1 Metho di carbonate-v 6-29 06-[address] itamin D3 11:38: 00:00 mouth once H ospita 500 mg-200 31 :00 a week. l unit per tablet calcium 2022-2022- No 1{tbl} Q7D Take 1 Metho di carbonate-v 05-[address] itamin D3 11:38: 00:00 mouth once H ospita 500 mg-200 31 :00 a week. l unit per tablet aspirin 2022-0 Yes 81mg Take 1 [facility] (ECOTRIN) 05-27 tablet (81 st 81 MG 10:45: mg total) Hospita enteric 29 by mouth. l coated tablet metoprolol Yes TAKE 1 Metho di tartrate 75 6-[address] mg tablet 00:00: MOUTH IN Hosp evelin 00 THE l MORNING AND 1 BEFORE BEDTIME metoprolol 0 Yes TAKE 1 [facility]o di tartrate 75 6-[address] mg tablet 00:00: MOUTH IN Hosp evelin 00 THE l MORNING AND 1 BEFORE BEDTIME sildenafil, 0 Yes 20mg Q8H Take 1 Meth mg for 6-19 tablet (20 st pulmonary 00:00: mg total) Hos fabiola hypertensio 00 by mouth l n, every 8 (REVATIO) (eight) 20 mg hours. tablet sildenafil, 0 Yes 20mg Q8H Take 1 Meth mg for 6-19 tablet (20 st pulmonary 00:00: mg total) Hos fabiola hypertensio 00 by mouth l n, every 8 (REVATIO) (eight) 20 mg hours. tablet torsemide 2022-0 2022- No 40mg QD Take [address] 40 mg Tab 04-29 by mouth [facility] 00:[facility]: 00:00 in the Medical 00 :00 morning. Center dapaglifloz 2022-0 2022- No 10mg QD Take [address] in 04-09 tablet (10 [facility] (FARXIGA) 12:41: 00:00 mg total) Me dical 10 mg 21 :00 by mouth Center tablet in the morning. dapaglifloz 2022-0 2022- No 10mg QD Take [address] in 04-09 tablet (10 [facility] (FARXIGA) 00:00: 00:00 mg total) Me dical 10 mg 00 :00 by mouth Center tablet in the morning. carvediloL 2022- No TAKE [address] [facility] (COREG) 25 5- 05-12 TABLET BY Vipin es MG tablet 00:00: 00:00 MOUTH Medica l 00 :00 TWICE Center DAILY WITH BREAKFAST AND WITH SUPPER clopidogreL 2023- No 75mg QD Take [address] (PLAVIX) 75 04-02-04 tablet (75 L ukes mg tablet 00:00: 23:59 mg total) Me dical 00 :00 by mouth Center in the morning. . aspirin 81 2022- No 81mg QD Take [address] MG chewable 03-31-14 tablet (81 L ukes tablet 00:00: 00:00 mg total) Medic al 00 :00 by mouth Center in the morning. torsemide 2022- No 40mg QD Take [address] 40 mg Tab 03-31 by mouth [facility] 00:00: 00:00 in the [facility] 00 :00 morning. Center metOLazone No peripheral 2.5mg Take [address] (ZAROXOLYN) 03-30- edema due tablet [facility] 2.5 MG 09:40: 00:00 to chronic (2.5 mg M edical tablet 01 :00 heart total) by Center failure mouth as needed Twice a week as needed, Wednesday and . metoprolol 2023- No 75mg Q.5D Take [address] tartrate 75 03-30 by mouth Vipin es mg Tab 00:00: 23:59 in the [facility] 00 :00 morning Center and 75 mg before bedtime. sildenafiL, 2023- No 20mg Take [address] [facility] pulm.hypert 03-30- tablet (20 L ukes ension, 00:00: 23:59 mg total) Medi vidhya (REVATIO, 00 :00 by mouth Cent er AGRA) 20 mg every 8 tablet (eight) hours. traMADoL 2022- No 50mg Take [address] (ULTRAM) 50 03-30- tablet (50 L ukes mg tablet 00:00: 23:59 mg total) Me dical 00 :00 by mouth 2 Center (two) times daily as needed for Pain for up to 30 days Prescribed for chronic pain. Max Daily Amount: 100 mg acetaminoph 2022- No 1{tbl} Take [address] en-codeine 4-14 04-14 tablet by Vipin es (TYLENOL 16:00: 00:00 mouth Medical #3) 300-30 13 :00 every 4 Center mg per (four) tablet hours as needed for Pain. gabapentin 2022- No TAKE [address] [facility] (NEURONTIN) 4-12 -14 CAPSULE BY Oracio duncan 300 MG 00:00: 00:00 MOUTH Medical capsule 00 :00 THREE Center TIMES DAILY acetaminoph 2022- No 1{tbl} Take [address] en-codeine 4-11 05-02 tablet by Vipin es (TYLENOL 00:00: 00:00 mouth Medical #3) 300-30 00 :00 every 6 Center mg per (six) tablet hours as needed for Pain for up to 3 days. Max Daily Amount: 4 tablets insulin Yes type 2 40U Q.5D Inject [address] glargine 4-03 diabetes Units [facility] (LANTUS, 11:01: mellitus [facility]) 29 usly in Center 100 unit/mL the injection morning and 40 Units before bedtime. Use as directed. cyclobenzap 2022- No 10mg Take [address] rine 4-03 04-03 by mouth 3 [facility] (FLEXERIL) 11:01: 00:00 (three) Med ical 10 MG 16 :00 times Center tablet daily as needed for Muscle spasms. cyclobenzap 2022- No 10mg Take [address] rine 4-03 04-03 by mouth 3 [facility] (FLEXERIL) 11:01: 00:00 (three) Med ical 10 MG 16 :00 times Center tablet daily as needed for Muscle spasms. acetaminoph Yes 1{tbl} Take [address] en-codeine 4-03 tablet by Donaldo burgos (TYLENOL 10:57: mouth Medical #3) 300-30 54 every 4 Center mg per (four) tablet hours as needed for Pain. dapaglifloz 2023-0 Yes 10mg QD Take [address] [facility] in -03 tablet (10 [facility] (FARXIGA) 10:57: mg total) Med ical 10 mg 54 by mouth Center tablet in the morning. metOLazone 2023-0 Yes peripheral 2.5mg Take [address] (ZAROXOLYN) -03 edema due tablet L ukes 2.5 MG 10:57: to chronic (2.5 mg Me dical tablet 54 heart total) by Center failure mouth as needed Twice a week as needed, Wednesday and . pregabalin 2023-0 Yes 75mg Take 1 Metho di (LYRICA) 75 4-[address] MG capsule 00:00: (75 mg Hospi ta 00 total) by l mouth. pregabalin 2023-0 Yes 75mg Take 1 Metho di (LYRICA) 75 4-[address] MG capsule 00:00: (75 mg Hospi ta 00 total) by l mouth. pregabalin 2023-0 2023- No 75mg Q.5D Take [address] (Lyrica) 75 4- 07-02 capsule Luke s MG capsule 00:00: 23:59 (75 mg Medi vidhya 00 :00 total) by Center mouth in the morning and 1 capsule (75 mg total) before bedtime. Do all this for 90 days. Max Daily Amount: 150 mg. pregabalin 2023-0 2023- No 75mg Q.5D Take [address] (Lyrica) 75 4- 07-02 capsule Luke s MG capsule 00:00: 23:59 (75 mg Medi vidhya 00 :00 total) by Center mouth in the morning and 1 capsule (75 mg total) before bedtime. Do all this for 90 days. Max Daily Amount: 150 mg. semaglutide 2023-0 2023- No 2mg Inject [address] (Ozempic) 2 4-03 07-02 mg [facility] mg/dose (8 00:00: 23:59 subcutaneo Medical mg/3 mL) 00 :00 usly every Cente r PnIj 7 days for 90 days. semaglutide 2023-0 2023- No 2mg Inject [address] (Ozempic) 2 4-03 05-02 mg [facility] mg/dose (8 00:00: 00:00 subcutaneo Medical mg/3 mL) 00 :00 usly every Patye deonte PnIj 7 days for 90 days. Constulose Yes TAKE [address] 10 gram/15 3-27 BY MOUTH [facility] mL solution 00:00: THREE Medic al 00 TIMES Center DAILY NEEDED Constulose Yes TAKE [address] 10 gram/15 3-27 BY MOUTH [facility] mL solution 00:00: THREE Medic al 00 TIMES Center DAILY NEEDED zolpidem Yes 10mg Take [address] [facility] (AMBIEN) 10 2-25 tablet (10 [facility] mg tablet 00:00: mg total) Med ical 00 by mouth Center every night as needed for Insomnia. Max Daily Amount: 10 mg zolpidem 2022- No 10mg Take [address] [facility] (AMBIEN) 10 2-25 04-14 tablet (10 L ukes mg tablet 00:00: 00:00 mg total) Me dical 00 :00 by mouth Center every night as needed for Insomnia. Max Daily Amount: 10 mg zolpidem 2022- No TAKE [address] [facility] (AMBIEN) 10 2-25 04-03 TABLET BY [facility] k[facility] mg tablet 00:00: 00:00 MOUTH Medica l 00 :00 NIGHTLY Center NEEDED FOR INSOMNIA zolpidem 2022- No TAKE [address] [facility] (AMBIEN) 10 2-25 04-03 TABLET BY [facility]en kes mg tablet 00:00: 00:00 MOUTH Medica l 00 :00 NIGHTLY Center NEEDED FOR INSOMNIA carvediloL Yes TAKE 1 [facility] (COREG) 25 2-07 TABLET BY Luke s MG tablet 00:00: MOUTH Medical 00 TWICE Center DAILY WITH BREAKFAST AND WITH DINNER carvediloL 2022- No TAKE [address] [facility] (COREG) 25 2-07 05-02 TABLET BY Vipin es MG tablet 00:00: 00:00 MOUTH Medica l 00 :00 TWICE Center DAILY WITH BREAKFAST AND WITH DINNER gabapentin Yes TAKE 1 [facility] (NEURONTIN) 1-23 CAPSULE BY [facility]en kes 300 MG 00:00: MOUTH Medical capsule 00 THREE Center TIMES DAILY gabapentin 2022- No TAKE [address] [facility] (NEURONTIN) 12-21 04-12 CAPSULE BY L ukes 300 MG 00:00: 00:00 MOUTH Medical capsule 00 :00 THREE Center TIMES DAILY Constulose 2022- No TAKE [address] 10 gram/15 12-2127 BY MOUTH Luke s mL solution 00:00: 14:47 THREE Medi vidhya 00 :57 TIMES Center DAILY NEEDED Constulose 2022- No TAKE [address] 10 gram/15 12-2127 BY MOUTH Luke s mL solution 00:00: 14:47 THREE Medi vidhya 00 :57 TIMES Center DAILY NEEDED torsemide 2021-11 Yes 20mg QD Take [address] [facility] (DEMADEX) 2-19 tablet (20 Luke s 20 MG 00:00: mg total) Medical tablet 00 by mouth Center daily. torsemide 2021-11- No 20mg QD Take 1 [facility] (DEMADEX) 2-19 05-02 tablet (20 Vipin es 20 MG 00:00: 00:00 mg total) Medica l tablet 00 :00 by mouth Center daily. insulin 2021-11- No 40U Q.5D Inject [address] glargine 12-21 04-03 Units [facility] (Basaglar 00:00: 00:00 subcutaneo M edical KwikPen 00 :00 usly 2 Center U-100 (two) Insulin) times 100 unit/mL daily. (3 mL) InPn insulin 2021-11- No 40U Q.5D Inject 40 [...] Center solution (three) times daily as needed. lactulose 2021-11- No 10g Take 15 CH[facility] [...] mouth 2 (two) times a day. torsemide 2021-11 Yes 40mg Q.5D Take 2 Method i (DEMADEX) 1-[address] 20 MG 00:00: (40 mg Hospita tablet 00 total) by l mouth 2 (two) times a day. torsemide 2021-11 No 40mg Q.5D Take 2 Metho di (DEMADEX) 1-22 11-[address] 20 MG 00:00: 00:00 (40 mg Hospita tablet 00 :00 total) by l mouth 2 (two) times a day. metoclopram 2021-11 Yes 10mg Take [address] mallorie HCl 1-21 tablet (10 [facility] (REGLAN) 10 00:00: mg total) M edical MG tablet 00 by mouth 4 Cent er (four) times daily as needed for Nausea. insulin 2021-11 Yes 15U Inject 15 [facility] aspart 1-21 Units [facility] U-100 00:00: subcutaneo Medica l (NovoLOG) 00 usly 3 Center 100 unit/mL (three) injection times daily before meals. insulin 2021-11 No 15U Inject [address] aspart 1-21 07-14 Units [facility] U-100 00:00: 00:00 subcutaneo Medic al (NovoLOG) 00 :00 usly 3 Center 100 unit/mL (three) injection times daily before meals. metoclopram 2021-11- No 10mg Take [address] mallorie HCl 1-21 04-14 tablet (10 [facility] (REGLAN) 10 00:00: 00:00 mg total) Medical MG tablet 00 :00 by mouth 4 Cent er (four) times daily as needed for Nausea. torsemide 2021-11- No 40mg QD Take 2 [facility] (DEMADEX) 1-21 12-19 tablets [facility] 20 MG 00:00: 00:00 (40 mg Medical tablet 00 :00 total) by Center mouth daily. sacubitriL- 2021-11- No 1{tbl} Q.5D Take [address] valsartan 12-19-19 tablet by Luke s (Entresto) 00:00: 00:00 mouth 2 Med ical 97-103 mg 00 :00 (two) Center tablet times daily. torsemide 2021-11- No 40mg QD Take 2 [facility] (DEMADEX) 12-19-19 tablets [facility] 20 MG 00:00: 00:00 (40 mg Medical tablet 00 :00 total) by Center mouth daily. sacubitriL- 2021-11- No 1{tbl} Q.5D Take [address] valsartan 12-19-19 tablet by Luke s (Entresto) 00:00: 00:00 mouth 2 Med ical 97-103 mg 00 :00 (two) Center tablet times daily. insulin 2021-11- No 40U Q.5D Inject [address] glargine 12-19 11-22 Units [facility] (LANTUS, 00:00: 00:00 subcutaneo Me dical SEMGLEE) 00 :00 usly 2 Center 100 unit/mL (two) injection times daily for 30 days. insulin 2021-11- No 40U Q.5D Inject [address] glargine 12-19-22 Units [facility] (LANTUS, 00:00: 00:00 subcutaneo Me dical SEMGLEE) 00 :00 usly 2 Center 100 unit/mL (two) injection times daily for 30 days. zolpidem 2021-11- No TAKE [address] [facility] (AMBIEN) 10 1- 02-24 TABLET BY Ronen kes mg tablet 00:00: 00:00 MOUTH Medica l 00 :00 NIGHTLY Center NEEDED FOR INSOMNIA zolpidem 2021-11- No TAKE [address] [facility] (AMBIEN) 10 1-10 02-24 TABLET BY Ronen kes mg tablet 00:00: 00:00 MOUTH Medica l 00 :00 NIGHTLY Center NEEDED FOR INSOMNIA metOLazone 2021-11- No 2.5mg QD Take 1 Met hodi (ZAROXOLYN) 12-07-[address] 2.5 MG 00:00: 05:59 (2.5 mg Hospita tablet 00 :00 total) by l mouth daily. Take 1/2 hour prior to morning torsemide. metOLazone 2021-11 No 2.5mg QD Take 1 Met hodi (ZAROXOLYN) 12-07 11-[address] 2.5 MG 00:00: 05:59 (2.5 mg Hospita tablet 00 :00 total) by l mouth daily. Take 1/2 hour prior to morning torsemide. metOLazone 2021-11- No pulmonary 2.5mg Q.5W Take 2.[address] (ZAROXOLYN) 12-0719 edema due mg by L ukes 2.5 MG 00:00: 00:00 to chronic mouth Med ical tablet 00 :00 heart twice a Center failure week Mondays and . metOLazone 2021-11 No pulmonary 2.5mg Q.5W Take 2.[address] (ZAROXOLYN) 12-07 edema due mg by L ukes 2.5 MG 00:00: 00:00 to chronic mouth Med ical tablet 00 :00 heart twice a Center failure week Mondays and . torsemide 2021-11 No 40mg Q.5D Take 2 Metho di (DEMADEX) 0-14 -[address] 20 MG 00:00: 00:00 (40 mg Hospita tablet 00 :00 total) by l mouth 2 (two) times a day. Farxiga 10 Yes 10mg QD Take 1 [facility]o di mg tablet 9-19 tablet ( 00:00: mg total) Hospita 00 by mouth l daily. Farxiga 10 0 Yes 10mg QD Take 1 Metho di mg tablet 9-19 tablet ( 00:00: mg total) Hospita 00 by mouth l daily. gabapentin 2022- No TAKE [address] [facility] (NEURONTIN) 08-17 CAPSULE BY L ukes 300 MG 00:00: 00:00 MOUTH Medical capsule 00 :00 THREE Center TIMES DAILY gabapentin 2022- No TAKE [address] [facility] (NEURONTIN) 08-17 CAPSULE BY L ukes 300 MG 00:00: 00:00 MOUTH Medical capsule 00 :00 THREE Center TIMES DAILY zolpidem 2021-2021- No TAKE [address] [facility] [facility] (AMBIEN) 10 08-17 11-10 TABLET BY Ronen kes mg tablet 00:00: 00:00 MOUTH Medica l 00 :00 NIGHTLY Center NEEDED FOR INSOMNIA zolpidem 2021-2021- No TAKE [address] [facility] (AMBIEN) 10 - 11-10 TABLET BY Ronen kes mg tablet [...] Hospit a mL solution 00 :00 l lactulose 2022- No once as Meth mg (CHRONULAC) 08-[address] 10 gram/15 00:00: 00:00 Hospit a mL solution 00 :00 l Constulose 2021-0 2021- No TAKE 15ML [facility] 10 gram/15 08-04 BY MOUTH Luke s mL solution 00:00: 00:00 THREE Medi vidhya 00 :00 TIMES A Center DAY NEEDED Constulose 2021-0 2021- No TAKE 15ML [facility] 10 gram/15 08-04 BY MOUTH Luke s mL solution 00:00: 00:00 THREE Medi vidhya 00 :00 TIMES A Center DAY NEEDED sacubitriL- 2021-0 2022- No 1{tbl} Q.5D Take 1 M ethodi valsartan 07-[address] (Entresto) 00:00: 00:00 mouth 2 Hos fabiola 97-103 mg 00 :00 (two) l tablet per times a tablet day. sacubitriL- 2021-0 2022- No 1{tbl} Q.5D Take 1 M ethodi valsartan 07-[address] (Entresto) 00:00: 00:00 mouth 2 Hos fabiola 97-103 mg 00 :00 (two) l tablet per times a tablet day. Entresto 2021- No Take [address] [facility] [facility] 97-103 mg 8-22 12-16 tablet by Luke s tablet 00:00: 00:00 mouth Medical 00 :00 twice Center daily Entresto 2021- No Take [address] [facility] 97-103 mg 8-22 12-16 tablet by Luke s tablet 00:00: 00:00 mouth Medical 00 :00 twice Center daily sacubitriL- 2021- No 1{tbl} Q.5D Take [address] valsartan 8-22 11-21 tablet by Donaldo s (Estadebodasto) 00:00: 00:00 mouth 2 Med ical 97-103 mg 00 :00 (two) Center tablet times daily. sacubitriL- 2021- No 1{tbl} Q.5D Take [address] valsartan 8-22 11-21 tablet by Donaldo s (Estadebodasto) 00:00: 00:00 mouth 2 Med ical 97-103 mg 00 :00 (two) Center tablet times daily. sacubitriL- 2021- No 1{tbl} Q.5D Take [address] valsartan 8-22 11-21 tablet by Ronenke s (Estadebodasto) 00:00: 00:00 mouth 2 Med ical 97-103 mg 00 :00 (two) Center tablet times daily. sacubitriL- 2021- No 1{tbl} Q.5D Take [address] valsartan 8-22 11-21 tablet by Ronenke s (Estadebodasto) 00:00: 00:00 mouth 2 Med ical 97-103 mg 00 :00 (two) Center tablet times daily. zolpidem 2021- No TAKE [address] [facility] (AMBIEN) 10 7-20 09-19 TABLET BY Ronen kes mg tablet 00:00: 00:00 MOUTH Medica l 00 :00 NIGHTLY Center NEEDED FOR INSOMNIA zolpidem 2021-2021- No TAKE [address] [facility] (AMBIEN) 10 7-20 09-19 TABLET BY Ronen kes mg tablet 00:00: 00:00 MOUTH Medica l 00 :00 NIGHTLY Center NEEDED FOR INSOMNIA Constulose 2021- No TAKE [address] [facility] 10 gram/15 -18 08- (10 [facility] mL solution 00:00: 00:00 TOTAL) BY Medical 00 :00 MOUTH Center THREE TIMES DAILY NEEDED FOR UP TO 10 DAYS Constulose 2021- No TAKE [address] [facility] 10 gram/15 -20 - (10 [facility] mL solution 00:00: 00:00 TOTAL) BY Medical 00 :00 MOUTH Center THREE TIMES DAILY NEEDED FOR UP TO 10 DAYS torsemide 2021- No 40mg QD Take 2 [facility] (DEMADEX[facility] -20 10- tablets [facility] 20 MG 00:00: 00:00 (40 mg Medical tablet 00 :00 total) by Center mouth daily. torsemide 2021-2021- No 40mg QD Take 2 [facility] (DE[facility] -20 10-21 tablets [facility] 20 MG 00:00: 00:00 (40 mg Medical tablet 00 :00 total) by Center mouth daily. gabapentin 2021- No TAKE [address] [facility] (NEURONTIN) 05-20 CAPSULE BY L ukes 300 MG 00:00: 00:00 MOUTH Medical capsule 00 :00 THREE Center TIMES DAILY gabapentin 2021- No TAKE [address] [facility] (NEURONTIN) 05-20- CAPSULE BY L ukes 300 MG 00:00: 00:00 MOUTH Medical capsule 00 :00 THREE Center TIMES DAILY atorvastati Yes 20mg QD Take [address] [facility] n (LIPITOR) 5-27 tablet (20 Ronen kes 20 MG 00:00: mg total) Medical tablet 00 by mouth Center every evening. atorvastati 2022- No 20mg QD Take [address] [facility] n (LIPITOR) 5-27 07-14 tablet (20 L ukes 20 MG 00:00: 00:00 mg total) Medica l tablet 00 :00 by mouth Center every evening. carvediloL 2022- No 25mg Take [address] [facility] (COREG) 25 5-27 02-07 tablet (25 Ronen kes MG tablet 00:00: 00:00 mg total) Me dical 00 :00 by mouth 2 Center (two) times daily with breakfast and dinner. carvediloL 2022- No 25mg Take [address] [facility] (COREG) 25 -27 02-07 tablet (25 Ronen kes MG tablet 00:00: 00:00 mg total) Me dical 00 :00 by mouth 2 Center (two) times daily with breakfast and dinner. isosorbide 2021- No 60mg QD Take [address] [facility] mononitrate -27 12-19 tablet (60 L ukes (IMDUR) 60 00:00: 00:00 mg total) M edical MG 24 hr 00 :00 by mouth Center tablet daily. isosorbide 2021- No 60mg QD Take [address] [facility] mononitrate -27 12-19 tablet (60 L ukes (IMDUR) 60 00:00: 00:00 mg total) M edical MG 24 hr 00 :00 by mouth Center tablet daily. torsemide 2021- No 40mg QD Take 2 [facility] (DE[facility]EX[facility] -27 06-22 [facility] 20 MG 00:00: 00:00 (40 mg Medical tablet 00 :00 total) by Center mouth daily. Entresto 2021-2021- No Take [address] [facility] 97-103 mg 5-23 08-22 tablet by Luke s Tab 00:00: 00:00 mouth Medical 00 :00 twice Center daily Entresto 2021-2021- No Take [address] [facility] 97-103 mg 5-23 08-22 tablet by Luke s Tab 00:00: 00:00 mouth Medical 00 :00 twice Center daily lactulose 2021- No 10g Take [address] [facility] (CHRONULAC) 5-20 07-20 mLs (10 g Ronen kes 10 gram/15 00:00: 00:00 total) by M edical mL solution 00 :00 mouth 3 Cente r (three) times daily as needed for up to 10 days. HYDROcodone 2021- No 1{tbl} Take [address] -acetaminop 5-12 05-22 tablet by Ronen kes hen ([place]) 00:00: 23:59 mouth Medi vidhya 7.5-325 mg 00 :00 every 6 Center per tablet (six) hours as needed for Pain for up to 10 days. Max Daily Amount: 4 tablets lactulose 2021- No 10g [id number] Take [address] [facility] (CEPHULAC) 5-12 05-20 [id number] packet (10 [facility] 10 gram 00:00: 00:00 [...] Yes TAKE [address] [facility] (AMBIEN) 10 1-27 TABLET BY Vipin es mg tablet 00:00: MOUTH ONCE Me dical 00 NIGHTLY Center NEEDED FOR INSOMNIA. MAX DAILY AMOUNT: 10 MG Entresto Yes Take [address] [facility] 97-103 mg 1-22 tablet by [facility] Tab 00:00: mouth Medical 00 twice Center daily Entresto 2021- No Take [address] [facility] 97-103 mg 1-22 05-23 tablet by Luke s Tab 00:00: 00:00 [...] Take 1 [facility] (COREG) 25 11-29 tablet (25 Vipin es MG tablet 00:00: mg total) Med ical 00 by mouth 2 Center (two) times daily with breakfast and dinner. carvediloL 2020-11- No 25mg Take [address] [facility] (COREG) 25 11-29 05-27 tablet (25 Ronen kes MG tablet 00:00: 00:00 mg total) Me dical 00 :00 by mouth 2 Center (two) times daily with breakfast and dinner. zolpidem 2021- No 10mg Take [address] [facility] (AMBIEN) 10 07-21 tablet (10 L ukes mg tablet 00:00: 00:00 mg total) Me dical 00 :00 by mouth Center every night as needed for Insomnia. Max Daily Amount: 10 mg gabapentin 2020- No TAKE [address] [facility] (NEURONTIN) 8 11-17 CAPSULE BY L ukes 300 MG 00:00: 19:28 MOUTH Medical capsule 00 :14 THREE Center TIMES DAILY Entresto 2021- No Take [address] [facility] 97-103 mg 06-23 tablet by Luke s Tab 00:00: 00:00 mouth Medical 00 :00 twice Center daily carvediloL 2020- No TAKE [address] [facility] (COREG) 25 06-23 TABLET BY Vipin es MG tablet 00:00: 00:00 MOUTH Medica l 00 :00 TWICE Center DAILY WITH BREAKFAST AND WITH SUPPER acetaminoph 2020- No 2{tbl} 2 tablet, Univers en-codeine - 07-04 Oral, ity of (TYLENOL 08:15: 07:35 ONCE, 1 Christie #3) 300-30 00 :00 dose, Sun Medi vidhya mg tablet 2 06/01/21 at [facility] tablet 0315, KEVIN acetaminoph Yes 4647 1{tbl} [...] 30U Q.5D Inject [address] [facility] glargine 6-01 11-21 Units [facility] (LANTUS) 00:00: 00:00 subcutaneo Me dical 100 unit/mL 00 :00 usly 2 Center injection (two) times daily. insulin 2021- No 30U Q.5D Inject [address] [facility] glargine 6-01 11-21 [facility] (LANTUS) 00:00: 00:00 subcutaneo Me dical 100 unit/mL 00 :00 usly 2 Center injection (two) times daily. acetaminoph Yes 1{tbl} Take [address] en-codeine 5-18 tablet by Luke s (TYLENOL 17:48: mouth Medical #3) 300-30 07 [...] Take [address] (ZAROXOLYN) -18 05-18 by mouth Vipin es 5 MG tablet 12:34: 00:00 daily. Med ical 18 :00 Center isosorbide 2020- Yes 60mg QD Take [facility] mononitrate 5-18 tablet (60 Ronen kes (IMDUR) 60 00:00: mg total) Me dical MG 24 hr 00 by mouth Center tablet daily. torsemide Yes 40mg QD Take [address] [facility] (DEMADEX) 5-18 tablets [facility] 20 MG 00:00: (40 mg Medical tablet 00 total) by Center mouth daily. isosorbide 2021- No 60mg QD Take [address] [facility] mononitrate 5-18 05-27 tablet (60 L ukes (IMDUR) 60 00:00: 00:00 mg total) M edical MG 24 hr 00 :00 by mouth Center tablet daily. torsemide 2021- No 40mg QD Take [facility] (DEMADEX) 5-18 05-27 tablets [facility] 20 MG 00:00: 00:00 (40 mg Medical tablet 00 :00 total) by Center mouth daily. insulin 2020- No 30U Q.5D Inject [address] [facility] glargine 04-15 06-01 Units [facility] (LANTUS) 00:00: 00:00 subcutaneo Me dical 100 unit/mL 00 :00 usly 2 Center injection (two) times daily. gabapentin 2020- No TAKE [address] [facility] (NEURONTIN) 04-06 08-17 CAPSULE BY L ukes 300 MG 00:00: 00:00 MOUTH Medical capsule 00 :00 THREE Center TIMES DAILY insulin Yes 40U Q.5D Inject 0.4 Meth mg GLARGINE 4-30 mL (40 st (LANTUS) 00:00: Units Hosp[facility] 100 unit/mL 00 total) l injection under the (vial) skin 2 (two) times a day. insulin Yes 40U Q.5D Inject 0.4 Meth [...] 70U Q.5D Inject [address] [facility] glargine 4-30 05-18 [facility] (LANTUS) 00:00: 00:00 subcutaneo Me dical 100 unit/mL 00 :00 usly 2 Center injection (two) times daily. SITagliptin 2020- No 100mg QD Take [address] (JANUVIA) 4-30 05-18 tablet [facility] 100 MG 00:00: 00:00 (100 [...] Take 50 mg Me thodi (ULTRAM) 50 03-28-[address] mg tablet 00:00: 04:59 Hospita 00 :00 l traMADoL 2020- No 50mg Take 50 mg Me thodi (ULTRAM) 50 03-28-[address] mg tablet 00:00: 04:59 Hospita 00 :00 l traMADoL 2020- No 50mg Take [address] [facility] (ULTRAM) 50 03-28 05-10 tablet (50 L ukes mg tablet 00:00: 23:59 mg total) Me dical 00 :00 by mouth Center every 6 (six) hours as needed for Pain for up to 10 days. Max Daily Amount: 200 mg insulin 2020- No 60U Q.5D Inject [address] [facility] glargine 03-27 04-29 Units [facility] (LANTUS) 15:31: 00:00 subcutaneo Me dical 100 unit/mL 39 :00 usly 2 Center injection (two) times daily. insulin 2020- No 60U Q.5D Inject [address] [facility] glargine 4- 04-30 Units [facility] (LANTUS) 00:00: 00:00 subcutaneo [...] No Take [address] [facility] 97-103 mg 3-04 02-18 tablet by Luke s Tab 00:00: 00:00 mouth Medical 00 :00 twice Center daily Eliquis 5 2020- No TAKE 2 [facility] tablet 01-01-30 TABLET BY Donaldo burgos 00:00: 00:00 MOUTH Medical 00 :00 TWICE Center DAILY FOR 6 DAYS, THEN TAKE 1 TABLET TWICE A DAY SITagliptin 2020- No 100mg QD Take [address] (Januvia) 20 04-20 tablet [facility] 100 MG 00:00: 23:59 [...] Take 1 [facility] (GLUCOTROL 1-13 -18 tablet by Vipin avina XL) 10 MG 00:00: 00:00 mouth once [...] DIFFICULY BREATHING Ventolin 2019-11- No INHALE [address] [facility] [address] HFA 90 2-20 04-03 TO 2 PUFFS [facility] mcg/actuati 00:00: 00:00 BY MOUTH M edical on inhaler 00 :00 EVERY [address] 6 HOURS NEEDED FOR DIFFICULY BREATHING Ventolin 2019-11- No INHALE [address] [facility] [address] HFA 90 2-20 04-03 TO 2 PUFFS [facility] mcg/actuati 00:00: 00:00 BY MOUTH M edical on inhaler 00 :00 EVERY [address] 6 HOURS NEEDED FOR DIFFICULY BREATHING Entresto 2019-11- No Take [address] [facility] [address] 97-103 mg 2-07 03-05 tablet by Luke s Tab 00:00: 00:00 mouth Medical 00 :00 twice Center daily sacubitriL- 2019-11 Yes Take 1 Meth mg valsartan 1-[address] [facility]) 00:00: mouth Hospit a 97-103 mg 00 twice l tablet per daily tablet sacubitriL- 2019-11 Yes Take 1 Meth mg valsartan 1-[address] ([facility]) 00:00: mouth Hospit a 97-103 mg 00 twice l tablet per daily tablet sacubitriL- 2019-11- No Take 1 Met hodi valsartan 1-04 08-[address] ([facility]) 00:00: 00:00 mouth Hospi ta 97-103 mg 00 :00 twice l tablet per daily tablet atorvastati 2020-0 Yes 20mg QD Take [address] [facility] [address] n (LIPITOR) 8-31 tablet (20 Ronen kes 20 MG 00:00: mg total) Medical tablet 00 by mouth Center every evening. metoclopram 2020-0 Yes 10mg Take [address] [facility] [address] mallorie HCl 8-31 tablet (10 [facility] (REGLAN) 10 00:00: mg total) M edical MG tablet 00 by mouth 4 Cent er (four) times daily as needed for Nausea. insulin 2020-0 Yes 15U Inject 15 [facility] aspart 8-31 Units [facility] U-100 00:00: subcutaneo Medica l (NOVOLOG) 00 usly 3 Center 100 unit/mL (three) injection times daily before meals. metoclopram 2021- No 10mg Take [address] [facility] mallorie HCl 07-29 11-21 tablet (10 [facility] (REGLAN) 10 00:00: 00:00 mg total) Medical MG tablet 00 :00 by mouth 4 Cent er (four) times daily as needed for Nausea. insulin No 15U Inject [address] [facility] aspart 07-29-21 Units [facility]ukes U-100 00:00: 00:00 subcutaneo Medic al (NOVOLOG) 00 :00 usly 3 Center 100 unit/mL (three) injection times daily before meals. metoclopram No 10mg Take [address] [facility] mallorie HCl 07-2921 tablet (10 [facility] (REGLAN) 10 00:00: 00:00 mg total) Medical MG tablet 00 :00 by mouth 4 Cent er (four) times daily as needed for Nausea. insulin No 15U Inject [address] [facility] aspart 07-29-21 Units [facility] U-100 00:00: 00:00 subcutaneo Medic al (NOVOLOG) 00 :00 usly 3 Center 100 unit/mL (three) injection times daily before meals. atorvastati 2021- No 20mg QD Take [address] [facility] n (LIPITOR) 07-29 05-27 tablet (20 L ukes 20 MG 00:00: 00:00 mg total) Medica l tablet 00 :00 by mouth Center every evening. isosorbide No 60mg QD Take [address] [facility] mononitrate 07-29 05-18 tablet (60 L ukes (IMDUR) 60 00:00: 00:00 mg total) M edical MG 24 hr 00 :00 by mouth Center tablet daily. gabapentin 2020- No 300mg [id number] Take [address] [facility] (NEURONTIN) 07-29 05-09 [id number] capsule [facility] 300 MG 00:00: 00:00 3D (300 mg Medical capsule 00 :00 total) by Center mouth 3 (three) times daily. torsemide No 10mg QD Take 1 [facility] (DEMADEX) 8-31 04-30 tablet (10 Vipin es 10 MG 00:00: 00:00 mg total) Medica l tablet 00 :00 by mouth Center every evening. carvediloL 2020-0 2020- No 25mg Take [address] [facility] (COREG) 25 07-29-09 tablet (25 Ronen kes MG tablet 00:00: 00:00 mg total) Me dical 00 :00 by mouth 2 Center (two) times daily with breakfast and dinner BREAKFAST AND DINNER. metFORMIN 2020-0 Yes 500mg Take 500 [facility] vers 500 mg 6-11 mg by ity of tablet 16:02: mouth. [address] metFORMIN 2020-0 Yes 500mg Take 500 Uni vers 500 mg 6-11 mg by ity of tablet 16:02: mouth. [address] metFORMIN 2020-0 Yes 500mg Take 500 Uni vers 500 mg 6-11 mg by ity of tablet 16:02: mouth. [address] metFORMIN 2020-0 Yes 500mg Take 500 Uni vers 500 mg 6-11 mg by ity of tablet 16:02: mouth. [address] metFORMIN 2020-0 Yes 500mg Take 500 Uni vers 500 mg 6-11 mg by ity of tablet 16:02: mouth. [address] metFORMIN 2020-0 Yes 500mg Take 500 Uni vers 500 mg 6-11 mg by ity of tablet 16:02: mouth. [address] metFORMIN 2020-0 Yes 500mg Take 500 Uni vers 500 mg 6-11 mg by ity of tablet 16:02: mouth. [address] metFORMIN 2020-0 Yes 500mg Take 500 Uni vers 500 mg 6-11 mg by ity of tablet 16:02: mouth. [address] metFORMIN 2020-0 Yes 500mg Take 500 Uni vers 500 mg 6-11 mg by ity of tablet 16:02: mouth. [address] metFORMIN 2020-0 Yes 500mg Take 500 Uni vers 500 mg 6-11 mg by ity of tablet 16:02: mouth. [address] metFORMIN 2020-0 Yes 500mg Take 500 Uni vers 500 mg 6-11 mg by ity of tablet 16:02: mouth. [address] lactated 2020-0 Yes 1000mL at 75 Univer s ringers IV 6-11 mL/hr, ity of infusion 14:15: 1,000 [place] 1[place]000 mL 00 IV Medical Infusion, Branch CONTINUOUS , Starting Anya 05/09/20 at 0915, Until Discontinu ed, Routine, PACU water for 2020-0 Yes PRN, Univers irrigation 05-09 Starting ity o f irrigation 13:54: Anya [place] solution 05/09/20 at [facility] 0854, [place] Until Discontinu ed, Routine, Intra-op NaCl 0.9% 2020-0 Yes PRN, Univers (NS) 05-09 Starting ity of injection 13:54: Anya [place] 05/09/20 at [facility] 08, [place] Until Discontinu ed, Routine, Intra-op neomycin-po 2020-0 Yes PRN, Univer s lymyxin-dex 05-09 Starting ity of amethasone 13:53: Anya [place] (MAXITROL) 05/09/20 at [facility] ical 3.5 0853, [place] mg/g-10,000 Until unit/g-0.1 Discontinu % ed, ophthalmic Routine, ointment Intra-op gentamicin 2020-0 Yes PRN, Univers injection 05-09 Starting ity of 13:53: Anya [place] 00 05/09/20 at [facility] 08, [place] Until Discontinu ed, KEVIN, Intra-op EPINEPHrine 2020-0 Yes PRN, Univer s (PF) 05-09 Starting ity of 1:1,000 (1 13:53: Anya [place] mg/mL) 05/09/20 at [facility] (ADRENALIN 0853, [place] (PF)) Until injection Discontinu ed, Routine, Intra-op DUOVISC 2020-0 Yes PRN, Univers (DUOVISC 05-09 Starting ity of VISCO 13:53: Anya [place] ELASTIC) 3 05/09/20 at [facility] ical %-4 %(0.5 0853, [place] mL) 1 % Until (0.55 mL) Discontinu intraocular ed, injection Routine, Intra-op dexamethaso 2020-0 Yes PRN, Univer s ne 05-09 Starting ity of (DECADRON) 13:52: Anya [place] injection 05/09/20 at [facility] 08, [place] Until Discontinu ed, Routine, Intra-op ceFAZolin 2020-0 Yes PRN, Univers (ANCEF) 05-09 Starting ity of injection 13:51: Anya [place] 00 05/09/20 at [facility] [address] Until Discontinu ed, KEVIN, Intra-op bupivacaine 2020-0 Yes PRN, Univer s (PF) 0.25% 05-09 Starting ity o f 5 13:51: Anya [place] mL-lidocain 05/09/20 at Wi dical e 2% (PF) 5 0851, [place] mL (EYE Until BLOCK) Discontinu syringe 10 ed, mL Intra-op balanced 2020-0 Yes PRN, Univers salt soln 05-09 Starting ity of no.2 irrig. 13:50: Anya [place] (BSS) 05/09/20 at [facility] ophthalmic 0850, [place] solution Until Discontinu ed, Routine, Intra-op tetracaine 2020-0 Yes PRN, Univers (PONTOCAINE 05-09 Starting ity of ) 0.5 % 13:38: Anya [place] ophthalmic 00 05/09/20 at [facility] ical drops 0838, [place] Until Discontinu ed, Routine, Intra-op mydriatic 2020-0 2020- No .5mL 0.5 mL, Univ ers #5 05-09 Left Eye, ity of ophthalmic 13:15: 13:01 ONCE, 1 Elder as solution 00 :00 dose, Anya Medica l 0.5 mL 05/09/20 at [place] syringe 0815, Routine, DSU Pre-op lactated 2020-0 2020- No 1000mL at 20 [facility] rs ringers IV 05-0911 mL/hr, ity of infusion 13:00: 13:09 1,000 mL, Elder as 1,000 mL 00 :00 IV Medical Infusion, [place] ONCE, 1 dose, Anya 05/09/20 at 0800, Routine, DSU Pre-op metFORMIN 2020-0 Yes 500mg Take 500 Uni vers 500 mg 6-11 mg by ity of tablet 11:02: mouth. [address] metFORMIN 2020-0 Yes 500mg Take 500 Uni vers 500 mg 6-11 mg by ity of tablet 11:02: mouth. [address] metFORMIN 2020-0 Yes 500mg Take 500 Uni vers 500 mg 5-28 mg by ity of tablet 14:49: mouth. [address] metFORMIN 2020-0 Yes 500mg Take 500 Uni vers 500 mg 5-28 mg by ity of tablet 14:49: mouth. [address] metFORMIN 2020-0 Yes 500mg Take 500 Uni vers 500 mg 5-28 mg by ity of tablet 14:49: mouth. [address] lactated 2020-0 Yes 500mL at 75 Univers ringers IV 5- mL/hr, 500 ity of infusion 14:15: mL, IV [place] 500 mL 00 Infusion, Medical CONTINUOUS Branch , Starting Anya 04/25/20 at 0915, Until Discontinu ed, Routine, PACU tetracaine 2020-0 Yes PRN, Univers (PONTOCAINE 04-25 Starting ity of ) 0.5 % 13:50: Anya [place] ophthalmic 04/25/20 at [facility] ica drops [address] Until Discontinu ed, Routine, Intra-op water for 2019-0 Yes PRN, Univers irrigation 04-25 Starting ity o f irrigation 13:50: Anya [place] solution 04/25/20 at [facility] [address] [place] [address] Until Discontinu ed, Routine, Intra-op NaCl 0.9% 2019-0 Yes PRN, Univers (NS) 04-25 Starting ity of injection 13:50: Anya [place] 04/25/20 at [facility] [address] [place] [address] Until Discontinu ed, Routine, Intra-op neomycin-po 2019-0 Yes PRN, Univer s lymyxin-dex 04-25 Starting ity of amethasone 13:50: Anya [place] (MAXITROL) 04/25/20 at [facility] 3.5 [address] mg/g-10,000 Until unit/g-0.1 Discontinu % ed, ophthalmic Routine, ointment Intra-op gentamicin 2019-0 Yes PRN, Univers injection 04-25 Starting ity of 13:49: Anya [place] 00 04/25/20 at [facility] [address] [place] [address] Until Discontinu ed, KEVIN, Intra-op EPINEPHrine 2020-0 Yes PRN, Univer s (PF) 04-25 Starting ity of 1:1,000 (1 13:49: Anya [place] mg/mL) 04/25/20 at [facility] (ADRENALIN 08, [place] (PF)) Until injection Discontinu ed, Routine, Intra-op DUOVISC 2020-0 Yes PRN, Univers (DUOVISC 04-25 Starting ity of VISCO 13:49: Anya [place] ELASTIC) 3 04/25/20 at [facility] ical %-4 %(0.5 0849, Branch mL) 1 % Until (0.55 mL) Discontinu intraocular ed, injection Routine, Intra-op ceFAZolin 2020-0 Yes PRN, Univers (ANCEF) 04-25 Starting ity of injection 13:48: Anya [place] 04/25/20 at [facility] 08, Branch Until Discontinu ed, KEVIN, Intra-op bupivacaine 2020-0 Yes PRN, Univer s (PF) 0.25% 04-25 Starting ity o f 5 13:48: Anya [place] mL-lidocain 04/25/20 at [place] dical e 2% (PF) 847, Branch mL (EYE Until BLOCK) Discontinu syringe 10 ed, mL Intra-op balanced 2020-0 Yes PRN, Univers salt soln 04-25 Starting ity of no.2 irrig. 13:48: Anya [place] (BSS) 04/25/20 at [facility] ophthalmic 0848, Branch solution Until Discontinu ed, Routine, Intra-op mydriatic 0 2020- No .5mL 0.5 mL, Univ ers #5 04-25 Right Eye, ity of ophthalmic 12:15: 12:58 ONCE, 1 [place] as solution 00 :00 dose, Anya Medica l 0.5 mL 04/25/20 at Branch syringe 0715, Routine, DSU Pre-op lactated 2020-0 2020- No 500mL at 20 Univer s ringers IV 04-25 mL/hr, 500 it y of infusion 12:15: 12:43 mL, IV [place] 500 mL 00 :00 Infusion, [facility] ONCE, 1 Branch dose, Anya 04/25/20 at 0715, Routine, DSU Pre-op metFORMIN 2020-0 Yes 500mg Take 500 Uni vers 500 mg 5-26 mg by ity of tablet 17:58: mouth. [place] 45 [facility] ILEVRO 0.3 2020-0 Yes Univers % DrpS -21 ity of 00:00: 00 [facility] ofloxacin 2020-0 Yes Univers 0.3 % -21 ity of ophthalmic 00:00: [place] solution 00 [facility] DUREZOL 2020-0 Yes Univers 0.05 % Drop -21 ity of 00:00: 00 Medical Branch ILEVRO 0.3 2020-0 Yes [...] 0.3 % 5-21 ity of ophthalmic 00:00: [facility] Branch DUREZOL 2020-0 Yes Univers 0.05 % Drop 5-21 ity of 00:00: Medical Branch ILEVRO 0.3 2020-0 Yes Univers % DrpS 5-21 ity of 00:00: Medical Branch ofloxacin 2020-0 Yes Univers 0.3 % 5-21 ity of ophthalmic 00:00: [facility] Medical Branch DUREZOL 2020-0 Yes Univers 0.05 % Drop 5-21 ity of 00:00: Medical Branch insulin 2019-0 Yes 15U Q.5D Inject Methodi [...] , MAX 10 MG PER DAY gabapentin 2019-0 Yes 300mg Take 300 Un anni 300 mg 5-11 mg by ity of capsule 00:00: mouth. [place] [facility] glipiZIDE 2019-0 Yes 10mg Take 10 mg Un anni XL 10 mg 24 5-11 by mouth. ity of hr tablet 00:00: Medical [place] insulin 2019-0 Yes 15U inject 15 Unive [...] mg by ity of capsule 00:00: mouth. [place] [facility] glipiZIDE 2020-0 Yes 10mg Take 10 mg Un anni XL 10 mg 24 5-11 by mouth. ity of hr tablet 00:00: [place] [facility] insulin 2020-0 Yes 15U inject [...] mg by ity of capsule 00:00: mouth. [place] [facility] glipiZIDE 2020-0 Yes 10mg Take 10 mg Un anni XL 10 mg 24 5-11 by mouth. ity of hr tablet 00:00: [place] [facility] insulin 2020-0 Yes 15U inject 15 Unive rs aspart 5-11 Units ity of RAPID 100 00:00: under the Elder as unit/mL 00 skin. Medical injection Branch isosorbide 2020-0 Yes 60mg Take 60 mg U nivers mononitrate 5-11 by mouth. ity of 60 mg 24 hr 00:00: [place] tablet Medical Branch torsemide 2020-0 Yes 10mg Take 10 mg Un anni 10 mg 5-11 by mouth. ity of tablet 00:00: [place] [facility] zolpidem 10 2020-0 Yes 10mg Take 10 mg Univers mg tablet 5-11 by mouth. ity o f 00:00: [place] [facility] atorvastati 2020-0 Yes 20mg Take 20 mg Univers n 20 mg 5-11 by mouth. ity of tablet 00:00: [place] [facility] carvediloL 2020-0 Yes 25mg Take 25 mg U nivers 25 mg 5-11 by mouth. ity of tablet 00:00: [place] [facility] gabapentin 2020-0 Yes 300mg Take 300 Un anni 300 mg 5-11 mg by ity of capsule 00:00: mouth. [place] [address] Medical Branch glipiZIDE 2020-0 Yes 10mg Take 10 mg Un anni XL 10 mg 24 5-11 by mouth. ity of hr tablet 00:00: [place] [facility] insulin 2020-0 Yes 15U inject 15 Unive rs aspart 5-11 Units ity of RAPID 100 00:00: under the [facility] as unit/mL 00 skin. Medical injection Branch isosorbide 2020-0 Yes 60mg Take 60 mg U nivers mononitrate 5-11 by mouth. ity of 60 mg 24 hr 00:00: [place] tablet Medical Branch torsemide 2020-0 Yes 10mg Take 10 mg Un anni 10 mg 5-11 by mouth. ity of tablet 00:00: [place] [facility] zolpidem 10 2020-0 Yes 10mg [...] of 60 mg 24 hr 00:00: [place] [facility] 00 Medical Branch torsemide 2020-0 Yes 10mg [...] mg by ity of capsule 00:00: mouth. [place] [facility] glipiZIDE 2020-0 Yes 10mg Take [...] ity of 60 mg 24 hr 00:00: [place] tablet Medical Branch torsemide 2020-0 Yes 10mg [...] 5-11 by mouth. ity of tablet 00:00: [place] [facility] gabapentin 2020-0 Yes 300mg Take 300 Un anni 300 mg 5-11 mg by ity of capsule 00:00: mouth. [place] [address] Medical Branch glipiZIDE 2020-0 Yes 10mg Take 10 mg Un anni XL 10 mg 24 5-11 by mouth. ity of hr tablet 00:00: [place] [facility] insulin 2020-0 Yes 15U inject 15 Unive rs aspart 5-11 Units ity of RAPID 100 00:00: under the [facility] as unit/mL 00 skin. Medical injection Branch isosorbide 2020-0 Yes 60mg Take 60 mg U nivers mononitrate 5-11 by mouth. ity of 60 mg 24 hr 00:00: [place] tablet Medical Branch torsemide 2020-0 Yes 10mg Take 10 mg Un anni 10 mg 5-11 by mouth. ity of tablet 00:00: Medical Branch zolpidem 10 2020-0 Yes 10mg Take 10 mg Univers mg tablet 5-11 by mouth. ity o f 00:00: [place] [facility] atorvastati 2020-0 Yes 20mg Take 20 mg Univers n 20 mg 5-11 by mouth. ity of tablet 00:00: Medical Branch carvediloL 2020-0 Yes 25mg Take 25 mg U nivers 25 mg 5-11 by mouth. ity of tablet 00:00: [place] [address] Medical Branch gabapentin 2020-0 Yes 300mg Take 300 Un anni 300 mg 5-11 mg by ity of capsule 00:00: mouth. [place] [facility] glipiZIDE 2020-0 Yes 10mg Take [...] 5-11 by mouth. ity o f 00:00: [place] [facility] atorvastati 2020-0 Yes 20mg Take 20 mg Univers n 20 mg 5-11 by mouth. ity of tablet 00:00: [place] [facility] carvediloL 2020-0 Yes 25mg Take 25 mg U nivers 25 mg 5-11 by mouth. ity of tablet 00:00: Medical Branch gabapentin 2020-0 Yes 300mg Take 300 Un anni 300 mg 5-11 mg by ity of capsule 00:00: mouth. [place] [facility] glipiZIDE 2020-0 Yes 10mg Take 10 mg Un anni XL 10 mg 24 5-11 by mouth. ity of hr tablet 00:00: [place] [facility] insulin 2020-0 Yes 15U inject 15 Unive rs aspart 5-11 Units ity of RAPID 100 00:00: under the [facility] as unit/mL 00 skin. Medical injection Branch isosorbide 2020-0 Yes 60mg Take 60 mg U nivers mononitrate 5-11 by mouth. ity of 60 mg 24 hr 00:00: [place] tablet [facility] torsemide 2020-0 Yes 10mg Take 10 mg Un anni 10 mg 5-11 by mouth. ity of tablet 00:00: Medical Branch zolpidem 10 2020-0 Yes 10mg Take 10 mg Univers mg tablet 5-11 by mouth. ity o f 00:00: Medical Branch atorvastati 2020-0 Yes 20mg Take 20 mg Univers n 20 mg 5-11 by mouth. ity of tablet 00:00: [place] [facility] carvediloL 2020-0 Yes 25mg Take 25 mg U nivers 25 mg 5-11 by mouth. ity of tablet 00:00: [place] [facility] gabapentin 2020-0 Yes 300mg Take 300 Un anni 300 mg 5-11 mg by ity of capsule 00:00: mouth. [place] [facility] glipiZIDE 2020-0 Yes 10mg Take 10 mg Un anni XL 10 mg 24 5-11 by mouth. ity of hr tablet 00:00: [place] [facility] insulin 2020-0 Yes 15U inject 15 Unive rs aspart 5-11 Units ity of RAPID 100 00:00: under the [facility] as unit/mL 00 skin. Medical injection Branch isosorbide 2020-0 Yes 60mg Take 60 mg U nivers mononitrate 5-11 by mouth. ity of 60 mg 24 hr 00:00: [place] tablet [facility] torsemide 2020-0 Yes 10mg Take 10 mg Un anni 10 mg 5-11 by mouth. ity of tablet 00:00: [place] [facility] zolpidem 10 2020-0 Yes 10mg Take 10 mg Univers mg tablet 5-11 by mouth. ity o f 00:00: [place] [id number] [facility] Branch atorvastati 2020-0 Yes 20mg Take 20 mg Univers n 20 mg 5-11 by mouth. ity of tablet 00:00: [place] [facility] carvediloL 2020-0 Yes 25mg Take 25 mg U nivers 25 mg 5-11 by mouth. ity of tablet 00:00: [place] [facility] gabapentin 2020-0 Yes 300mg Take 300 Un anni 300 mg 5-11 mg by ity of capsule 00:00: mouth. [place] [address] Medical Branch glipiZIDE 2020-0 Yes 10mg Take 10 mg Un anni XL 10 mg 24 5-11 by mouth. ity of hr tablet 00:00: [place] [address] Medical Branch insulin 2020-0 Yes 15U inject 15 Unive rs aspart 5-11 Units ity of RAPID 100 00:00: under the [facility] as unit/mL 00 skin. Medical injection Branch isosorbide 2020-0 Yes 60mg Take 60 mg U nivers mononitrate 5-11 by mouth. ity of 60 mg 24 hr 00:00: [place] tablet Medical [facility] torsemide 2020-0 Yes 10mg [...] ity of 60 mg 24 hr 00:00: [facility] torsemide 2020-0 Yes 10mg Take [...] ity of 60 mg 24 hr 00:00: [place] tablet [facility] torsemide 2020-0 Yes 10mg Take 10 mg Un anni 10 mg 5-11 by mouth. ity of tablet 00:00: [place] [facility] zolpidem 10 2020-0 Yes 10mg Take 10 mg Univers mg tablet 5-11 by mouth. ity o f 00:00: [place] [facility] gabapentin 2020-0 Yes 300mg Take 300 Un anni 300 mg 5-11 mg by ity of capsule 00:00: mouth. [place] [facility] glipiZIDE 2020-0 Yes 10mg Take 10 mg Un anni XL 10 mg 24 5-11 by mouth. ity of hr tablet 00:00: [place] [facility] insulin 2020-0 Yes 15U inject [...] 5-11 by mouth. ity of tablet 00:00: [place] [facility] gabapentin 2020-0 Yes 300mg Take 300 Un anni 300 mg 5-11 mg by ity of capsule 00:00: mouth. [place] [facility] glipiZIDE 2020-0 Yes 10mg Take [...] 24 hr 00:00: [place] tablet Medical Branch torsemide 2020-0 Yes 10mg [...] by mouth. ity of hr tablet 00:00: [place] [facility] insulin 2020-0 Yes 15U inject [...] ity of 60 mg 24 hr 00:00: [facility] 00 Medical Branch torsemide 2020-0 Yes 10mg [...] 00:00: Medical Branch atorvastati 2020-0 Yes 20mg QD Take 1 Meth mg n (LIPITOR) 5-11 tablet (20 st 20 mg 00:00: mg total) Hospita tablet 00 by mouth l daily. insulin 2020-0 Yes 15U Q.5D Inject Methodi ASPART 5-[address] (NovoLOG) 00:00: (15 Units Hos fabiola 100 unit/mL 00 total) l injection under the skin 2 (two) times a day. zolpidem 2020-0 Yes TAKE 1 Methodi (AMBIEN) 10 5-[address] mg tablet 00:00: MOUTH AT Hosp evelin 00 NIGHT l NEEDED FOR INSOMNIA , MAX 10 MG PER DAY atorvastati 2020-0 Yes 20mg Take 20 mg Methodi n (LIPITOR) 5-[address] 20 mg 00:00: Hospita tablet 00 l glipiZIDE 2020-0 Yes Take 1 Method i (GLUCOTROL) 5-[address] 10 MG 24 hr 00:00: mouth once Hospita tablet 00 daily l carvediloL 2020-0 Yes TAKE 1 Metho di (COREG) 25 5-[address] MG tablet 00:00: MOUTH Hospita 00 TWICE l DAILY WITH BREAKFAST AND DINNER isosorbide 2020-0 Yes 60mg Take 60 mg M ethodi mononitrate 5-[address] (IMDUR) 60 00:00: Hospita MG 24 hr 00 l tablet insulin 2020-0 Yes 15U Inject 15 Metho di ASPART 5-[address] (NovoLOG) 00:00: under the Hos fabiola 100 unit/mL 00 skin. l injection zolpidem 2020-0 Yes TAKE 1 Methodi (AMBIEN) 10 5-[address] mg tablet 00:00: MOUTH AT Hosp evelin 00 NIGHT l NEEDED FOR INSOMNIA , MAX 10 MG PER DAY atorvastati 2020-0 Yes 20mg Take 20 mg Methodi n (LIPITOR) 5-[address] 20 mg 00:00: Hospita tablet 00 l glipiZIDE 2020-0 Yes Take 1 Method i (GLUCOTROL) 5-[address] 10 MG 24 hr 00:00: mouth once Hospita tablet 00 daily l carvediloL 2020-0 Yes TAKE 1 Metho di (COREG) 25 5-[address] MG tablet 00:00: MOUTH Hospita 00 TWICE l DAILY WITH BREAKFAST AND DINNER isosorbide 2020-0 Yes 60mg Take 60 mg M ethodi mononitrate 5-[address] (IMDUR) 60 00:00: Hospita MG 24 hr 00 l tablet insulin 2020-0 Yes 15U Inject 15 Metho di ASPART 5-[address] (NovoLOG) 00:00: under the Hos fabiola 100 unit/mL 00 skin. l injection zolpidem 2020-0 Yes TAKE 1 Methodi (AMBIEN) 10 5-[address] mg tablet 00:00: MOUTH AT Hosp evelin 00 NIGHT l NEEDED FOR INSOMNIA , MAX 10 MG PER DAY atorvastati No 20mg QD Take 1 Met hodi n (LIPITOR) 04-08 tablet (20 s t 20 mg 00:00: 00:00 mg total) Hospit a tablet 00 :00 by mouth l daily. glipiZIDE Take 1 Metho di (GLUCOTROL) 04-[address] 10 MG 24 hr 00:00: 00:00 mouth once Hospita tablet 00 :00 daily l carvediloL No TAKE 1 Meth mg (COREG) 25 04-[address] MG tablet 00:00: 00:00 MOUTH Hospit a 00 :00 TWICE l DAILY WITH BREAKFAST AND DINNER isosorbide No 60mg QD Take 1 Meth mg mononitrate 04-08 tablet (60 s t (IMDUR) 60 00:00: 00:00 mg total) H ospita MG 24 hr 00 :00 by mouth l tablet daily. gabapentin No 300mg [id number] Take 1 Methodi (NEURONTIN) 04-[id number] 300 mg 00:00: 00:00 3D (300 mg Hospita capsule 00 :00 total) by l mouth 3 (three) times a day. glipiZIDE No Take 1 Metho di (GLUCOTROL) 04-[address] 10 MG 24 hr 00:00: 00:00 mouth once Hospita tablet 00 :00 daily l carvediloL No TAKE 1 Meth mg (COREG) 25 04-[address] MG tablet 00:00: 00:00 MOUTH Hospit a 00 :00 TWICE l DAILY WITH BREAKFAST AND DINNER isosorbide No 60mg QD Take 1 Meth mg mononitrate 04-08 tablet (60 s t (IMDUR) 60 00:00: 00:00 mg total) H ospita MG 24 hr 00 :00 by mouth l tablet daily. gabapentin 2020-0 2023- No 300mg [id number] Take 1 Methodi (NEURONTIN) 5- 06-[id number] 300 mg 00:00: 00:00 3D (300 mg Hospita capsule 00 :00 total) by l mouth 3 (three) times a day. sacubitril- 2020-0 2020- No 1{tbl} Take 1 U nivers valsartan 5-11 08-10 tablet by ity of (ENTRESTO) 00:00: 04[place] :00 Medical tablet Branch spironolact 2020-0 2020- No 25mg Take 25 mg Univers one 25 mg 5-11 08-10 by mouth. ity of tablet 00:00: 04:59 [place] 00 :00 Medical Branch sacubitril- 2020-0 2020- No 1{tbl} Take 1 U nivers valsartan 5-11 08-10 tablet by ity of (ENTRESTO) 00:00: 04:[place] 00 :00 Medical tablet Branch spironolact 2020-0 2020- No 25mg Take 25 mg Univers one 25 mg 5-11 08-10 by mouth. ity of tablet 00:00: 04:59 [place] 00 :00 Medical Branch sacubitril- 2020-0 2020- No 1{tbl} Take 1 U nivers valsartan 5-11 08-10 tablet by ity of (ENTRESTO) 00:00: 04:[place] 00 :00 Medical tablet Branch spironolact 2020-0 2020- No 25mg Take 25 mg Univers one 25 mg 5-11 08-10 by mouth. ity of tablet 00:00: 04:59 [place] 00 :00 Medical Branch sacubitril- 2020-0 2020- No 1{tbl} Take 1 U nivers valsartan 5-11 08-10 tablet by ity of (ENTRESTO) 00:00: 04:[place] 00 :00 Medical tablet Branch spironolact 2020-0 2020- No 25mg Take 25 mg Univers one 25 mg 5-11 08-10 by mouth. ity of tablet 00:00: 04:59 [place] 00 :00 Medical Branch sacubitril- 2020-0 2020- No 1{tbl} Take 1 U nivers valsartan 5- 08-10 tablet by ity of (ENTRESTO) 00:00: 04:[place] 00 :00 Medical tablet Branch spironolact 2019- No 25mg Take 25 mg Univers one 25 mg 5- 08-10 by mouth. ity of tablet 00:00: [...] hours as needed for Pain (scale 4-6). Vital Signs Vital Name Observation Time Observation Value Comments Source HEIGHT 2023-07-13 09:30:00 152.4 cm WEIGHT 2023-07-13 09:30:00 102.7 kg HEIGHT 2023-07-13 05:10:00 157.5 cm WEIGHT 2023-07-13 05:10:00 109.317 kg HEIGHT 2023-07-13 09:30:00 152.4 cm WEIGHT 2023-07-13 09:30:00 102.7 kg HEIGHT 2023-07-13 05:10:00 157.5 cm WEIGHT 2023-07-13 05:10:00 109.317 kg HEIGHT 2023-06-11 10:49:00 157.5 cm WEIGHT 2023-06-11 10:49:00 115.667 kg HEIGHT 2023-06-11 10:49:00 157.5 cm WEIGHT 2023-06-11 [...] cm WEIGHT 2023-03-12 11:05:00 122.925 kg HEIGHT 2023-03-12 11:05:00 160 cm WEIGHT [...] kg Heart rate 2021-06-01 07:30:00 58 /min [facility] Respiratory rate 2021-06-01 07:30:00 21 /min [facility] Oxygen saturation in 2021-06-01 07:30:00 78 /min [facility] Arterial blood by [facility] Pulse oximetry Branch Systolic blood 2021-06-01 07:00:00 129 mm[Hg] Univer sity of [facility] Diastolic blood 2021-06-01 07:00:00 49 mm[Hg] Unive [facility] Body temperature 2021-06-01 04:47:00 37.22 Debbi [facility] height 2021-06-01 04:47:00 160 cm [facility] Body weight 2021-06-01 04:47:00 118.389 kg [facility] BMI 2021-06-01 04:47:00 46.23 kg/m2 [facility] WEIGHT 2021-04-14 06:00:00 120.9 kg WEIGHT [...] blood 2020-05-09 14:25:00 109 mm[Hg] Univer sity [facility] Diastolic blood 2020-05-09 14:25:00 61 mm[facility]Hg[facility] 2020-05-09 14:25:00 72 /min [facility] Respiratory rate 2020-05-09 14:25:00 18 /min Univ [facility] Oxygen saturation in 2020-05-09 14:25:00 96 /min [facility] Arterial blood by [facility] Pulse oximetry Branch Body temperature 2020-05-09 14:03:00 35.72 Debbi [facility] Body height 2020-05-06 18:39:00 160 cm Universi [facility] Body weight 2020-05-06 18:39:00 106.1 kg [facility] BMI 2020-05-06 18:39:00 41.45 kg/m2 [facility] Systolic blood 2020-05-09 14:25:00 109 mm[Hg] Univer sity [facility] Diastolic blood 2020-05-09 14:25:00 61 mm[Hg] Unive rsity of pressure [facility] Heart rate 2020-05-09 14:25:00 72 /min Universi ty of [place] [facility] Respiratory rate 2020-05-09 14:25:00 18 /min Univ ersity of [place] [facility] Oxygen saturation in 2020-05-09 14:25:00 96 /min University of Arterial blood by [facility] vidhya Pulse oximetry Branch Body temperature 2020-05-09 14:03:00 35.72 Debbi Univ ersity of [place] [facility] Body height 2020-05-06 18:39:00 160 cm Universi ty of [place] [facility] Body weight 2020-05-06 18:39:00 106.1 kg Universi ty [facility] [place] [facility] BMI 2020-05-06 18:39:00 41.45 kg/m2 Universi ty of [place] [facility] Systolic blood 2020-04-25 14:35:00 130 mm[Hg] Univer sity of pressure [facility] Diastolic blood 2020-04-25 14:35:00 75 mm[Hg] Unive rsity of pressure [facility] Heart rate 2020-04-25 14:35:00 58 /min Universi ty of [place] [facility] Respiratory rate 2020-04-25 14:35:00 13 /min Univ ersity of [place] [facility] Oxygen saturation in 2020-04-25 14:35:00 95 /min University of Arterial blood by [facility] Pulse oximetry Branch Body temperature 2020-04-25 14:07:00 36.17 Debbi Univ ersity of [place] [facility] Body height 2020-04-23 17:45:00 160 cm Universi ty of [place] [facility] Body weight 2020-04-23 17:45:00 106.142 kg Universi ty of [place] [facility] BMI 2020-04-23 17:45:00 41.45 kg/m2 Universi ty of [place] [facility] Systolic blood 2020-04-25 14:35:00 130 mm[Hg] Univer sity of pressure [facility] Diastolic blood 2020-04-25 14:35:00 75 mm[Hg] Unive rsity of pressure [facility] Heart rate 2020-04-25 14:35:00 58 /min Universi ty of [place] [facility] Respiratory rate 2020-04-25 14:35:00 13 /min Univ ersity of [place] [facility] Oxygen saturation in 2020-04-25 14:35:00 95 /min [facility] blood by [facility] Pulse oximetry Branch Body temperature 2020-04-25 14:07:00 36.17 Debbi Univ [facility] Body height 2020-04-23 17:45:00 160 cm Universi ty [facility] Body weight 2020-04-23 17:45:00 106.142 kg [facility] BMI 2020-04-23 17:45:00 41.45 kg/m2 Universi [facility] HEIGHT 2020-04-08 00:00:00 165.1 cm WEIGHT 2020-04-08 00:00:00 106.414 kg HEIGHT 2020-04-08 00:00:00 165.1 cm WEIGHT 2020-04-08 00:00:00 106.414 kg Systolic blood 2023-08-17 15:07:00 112 mm[Hg] Method [facility] pressure Diastolic blood 2023-08-17 15:07:00 63 mm[Hg] [facility] pressure Heart rate 2023-08-17 15:07:00 60 /min [facility] Respiratory rate 2023-08-17 15:07:00 14 /min [facility] Body height 2023-08-17 15:07:00 162.6 cm [facility] Body weight 2023-08-17 15:07:00 103.42 kg [facility] BMI 2023-08-17 15:07:00 39.14 kg/m2 [facility] Systolic blood 2023-06-11 10:49:00 103 mm[Hg] [facility] Diastolic blood 2023-06-11 10:49:00 53 mm[Hg] [facility] Heart rate 2023-06-11 10:49:00 68 /min [facility] Body temperature 2023-06-11 10:49:00 36.44 Debbi [facility] Respiratory rate 2023-06-11 10:49:00 17 /min [facility] Body height 2023-06-11 10:49:00 157.5 cm [facility] Body weight 2023-06-11 10:49:00 115.667 kg [facility] BMI 2023-06-11 10:49:00 46.64 kg/m2 [facility] Oxygen saturation in 2023-06-11 10:49:00 94 /min [facility] Arterial blood by Medical Ce nter Pulse oximetry Systolic blood 2023-05-27 15:34:00 117 mm[Hg] Method ist [facility] pressure Diastolic blood 2023-05-27 15:34:00 63 mm[Hg] [facility] pressure Heart rate 2023-05-27 15:34:00 58 /[facility] rate 2023-05-27 15:34:00 12 /min [facility] Body height 2023-05-27 15:34:00 162.6 [facility] Body weight 2023-05-27 15:34:00 109.68 kg [facility] BMI 2023-05-27 15:34:00 41.50 kg/m2 [facility] Oxygen saturation in 2023-05-27 15:34:00 94 /min [facility] Arterial blood by Pulse oximetry Systolic blood 2023-03-01 10:45:00 135 mm[Hg] [facility] Diastolic blood 2023-03-01 10:45:00 63 mm[Hg] [facility] S t [facility] Heart rate 2023-03-01 10:45:00 44 /min [facility] Body temperature 2023-03-01 10:45:00 36 Debbi [facility] Respiratory rate 2023-03-01 10:45:00 20 /min [facility] Body height 2023-03-01 10:45:00 160 cm [facility] Body weight 2023-03-01 10:45:00 123.378 kg [facility] BMI 2023-03-01 10:45:00 48.18 kg/m2 [facility] Oxygen saturation in 2023-03-01 10:45:00 96 /min [facility] Arterial blood by Medical Ce nter Pulse oximetry Systolic blood 2021-04-15 14:51:00 115 mm[Hg] [facility] Diastolic blood 2021-04-15 14:51:00 56 mm[Hg] [facility] S t [facility] Heart rate 2021-04-15 14:51:00 69 /min [facility] Body temperature 2021-04-15 14:51:00 36 Debbi [facility] Respiratory rate 2021-04-15 14:51:00 18 /min [facility] Oxygen saturation in 2021-04-15 14:51:00 93 /min [facility] Arterial blood by Medical Ce nter Pulse oximetry Body weight 2021-04-14 06:00:00 120.9 kg [facility] BMI 2021-04-14 06:00:00 47.21 kg/m2 [facility] Body height 2021-04-11 03:06:00 160 cm [facility] Body height 2021-04-02 14:37:00 162.6 cm [facility] Body weight 2021-04-02 14:37:00 122.471 kg [facility] BMI 2021-04-02 14:37:00 46.35 kg/m2 [facility] Procedures Procedure Date / Time Performing Clinician Source Performed CV HOLTER MONITOR 48 HOUR 2023-06-04 18:05:19 [facility] ECG 12-LEAD 2023-05-27 15:49:00 [facility] POCT-ACT 2023-04-02 11:32:00 [facility] 2023-04-02 10:59:00 Will Vaughan [facility] ECG 12-LEAD 2023-04-02 09:56:14 Luis Szymanski [facility] ECG 12-LEAD 2023-04-02 09:56:14 Unknown, Hl7 Doctor [facility] POCT-ACT 2023-04-02 09:56:[address] [facility] POCT-ACT 2023-04-02 09:34:[address] [facility] POCT-ACT 2023-04-02 09:23:[address] [facility] CARDIAC ELECTROPHYSIOLOGY 2023-04-02 07:50:00 Will Vaughan [facility] STUDY, WITH ABLATION [facility] ter PROTHROMBIN TIME/INR 2023-04-02 06:28:[address] [facility] CBC W/PLT COUNT & AUTO 2023-04-02 06:28:00 Will Vaughan [facility] BASIC METABOLIC PANEL 2023-04-02 06:28:[address] [facility] MAGNESIUM 2023-04-02 06:28:[address] [facility] TYPE AND SCREEN, AUTOMATED 2023-04-02 06:28:00 Luis Szymanski [facility] CBC W/PLT COUNT & AUTO 2023-04-02 06:28:00 Solisjonny Vaughan [facility] ECG 12-LEAD 2023-04-02 05:42:33 Luis Szymanski [facility] CARDIAC CATH REPORT - SCAN 2023-04-02 00:00:00 Provider, [facility] POCT-GLUCOSE METER 2023-03-30 07:32:00 Dane Godoy [facility] CALCIUM, IONIZED 2023-03-30 03:26:00 [facility] COMPREHENSIVE METABOLIC 2023-03-30 03:26:00 [facility] MAGNESIUM 2023-03-30 03:26:00 [facility] PHOSPHORUS 2023-03-30 03:26:00 [facility] CBC W/PLT COUNT & AUTO 2023-03-30 03:26:00 [facility] CBC W/PLT COUNT & AUTO 2023-03-30 03:26:00 [facility] POCT-GLUCOSE METER 2023-03-29 21:15:00 Dane Godoy [facility] POCT-GLUCOSE METER 2023-03-29 16:04:00 Godoy, [facility] POCT-GLUCOSE METER 2023-03-29 11:43:00 Godoy, [facility] POCT-GLUCOSE METER 2023-03-29 07:32:00 Godoy, [facility] BASIC METABOLIC PANEL 2023-03-29 05:18:00 Godoy, [facility] POCT-GLUCOSE METER 2023-03-28 21:20:00 Godoy, [facility] POCT-GLUCOSE METER 2023-03-28 16:47:00 Godoy, [facility] POCT-GLUCOSE METER 2023-03-28 13:00:00 Godoy, [facility] POCT-GLUCOSE METER 2023-03-28 07:21:00 Godoy, [facility] BASIC METABOLIC PANEL 2023-03-28 06:10:00 Godoy, [facility] MAGNESIUM 2023-03-28 06:10:[facility] 2023-03-27 21:17:00 Godoy, [facility] POCT-GLUCOSE METER 2023-03-27 15:22:00 Godoy, [facility] POCT-GLUCOSE METER 2023-03-27 13:[facility] 2023-03-27 07:30[facility]00 [facility] 2023-03-27 05:06:00 [facility] COMPREHENSIVE METABOLIC 2023-03-27 05:06[facility]23-03-27 05:06:00 Abran [facility] PHOSPHORUS 2023-03-27 05:06:00 Abran [facility] CBC W/PLT COUNT & AUTO 2023-03-27 05:06:00 Osullivan, [facility] CBC W/PLT COUNT & AUTO 2023-03-27 05:06:00 Abran [facility] POCT-GLUCOSE METER 2023-03-26 21:53:00 Godoy [facility] POCT-GLUCOSE METER 2023-03-26 17:25:00 Godoy [facility] BASIC METABOLIC PANEL 2023-03-26 15:26:00 Anthony Rausch [facility] POCT-GLUCOSE METER 2023-03-26 11:17:00 [facility] PO[facility]SE METER 2023-03-26 08:37:00 Walt [facility] CATHETERIZATION, HEART, 2023-03-26 07:35:00 Anthony Rausch [facility] RIGHT, 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 CALCIUM, IONIZED 2023-03-26 03:25:00 [facility]PRE[facility]OLIC 2023-03-26 03:25:00 [facility] MAGNESIUM 2023-03-26 03:25:00 [facility] PHOSPHORUS 2023-03-26 03:25:00 [facility] CBC W/PLT COUNT & AUTO 2023-03-26 03:25:00 [facility] CBC W/PLT COUNT & AUTO 2023-03-26 03:25[facility]SE [facility] 2023-03-25 21:46:00 [facility] BASIC MET[facility]OLIC PANEL 2023-03-25 17:54:00 Anthony Rausch [facility] POCT-GLUCOSE METER 2023-03-25 16:01:00 Godoy [facility] POCT-GLUCOSE METER 2023-03-25 11:36:00 Godoy, [facility] POCT-GLUCOSE METER 2023-03-25 07:30:00 Dane Godoy [facility] CALCIUM, IONIZED 2023-03-25 03:55:00 [facility] COMPREHENSIVE METABOLIC 2023-03-25 03:55:00 Abran [facility] MAGNESIUM 2023-03-25 03:55:[facility] 2023-03-25 03:55:00 Abran [facility] CBC W/PLT COUNT & AUTO 2023-03-25 03:55:00 Abran [facility] CBC W/PLT COUNT & AUTO 2023-03-25 03:55:00 Abran [facility] POCT-GLUCOSE METER 2023-03-24 21:27:00 Dane Godoy [facility] BASIC METABOLIC PANEL 2023-03-24 16:55:00 Anthony Rausch [facility] POCT-GLUCOSE METER 2023-03-24 16:34:00 Walt [facility] POCT-GLUCOSE METER 2023-03-24 11:55:00 Walt [facility] POCT-GLUCOSE METER 2023-03-24 08:14:00 Walt [facility] CALCIUM, IONIZED 2023-03-24 05:39:00 [facility] COMPREHENSIVE METABOLIC 2023-03-24 05:39:00 Abran [facility] MAGNESIUM 2023-03-24 05:39:00 [facility] CBC W/PLT COUNT & AUTO 2023-03-24 05:39:00 [facility] BLOOD GAS, VENOUS 2023-03-24 05:39:00 [facility] CBC W/PLT COUNT & AUTO 2023-03-24 05:39:00 Abran [facility] POCT-GLUCOSE METER 2023-03-23 20:58:00 Godoy, [facility] POCT-GLUCOSE METER 2023-03-23 17:41:00 [facility]OL[facility] PANEL 2023-03-23 16:40:00 Miracle Anthony Pau [facility] POCT-GLUCOSE METER 2023-03-23 12:53:00 [facility] POCT-[facility]SE METER 2023-03-23 08:50:00 [facility] CALCI[facility], IONIZED 2023-03-23 05:06:00 [facility] COMPREHENSIVE METABOLIC 2023-03-23 05:06:00 [facility] MAGNESIUM 2023-03-23 05:06:00 [facility] PHOSPHORUS 2023-03-23 05:06:00 [facility] CBC W/PLT COUNT & AUTO 2023-03-23 05:06:00 [facility] CBC W/PLT COUNT & AUTO 2023-03-23 05:06:00 [facility] POCT-GLUCOSE METER 2023-03-22 21:51:00 [facility]EL 2023-03-22 17:19:00 Anthony Rausch [facility] POCT-GLUCOSE METER 2023-03-22 16:24:00 Walt D[facility] POCT-GLUCOSE METER 2023-03-22 12:16:00 [facility] CREATININE, RANDOM URINE 2023-03-22 08:41:00 Venita Lion [facility] PROTEIN, RANDOM URINE 2023-03-22 08:41:00 Venita Lion [facility] URINALYSIS W/ MICROSCOPIC 2023-03-22 08:41:00 Venita Lion [facility] POCT-GLUCOSE METER 2023-03-22 07:22:00 Merchant, [facility] BASIC METABOLIC PANEL 2023-03-22 05:43:00 Anthony Rausch [facility] POCT-GLUCOSE METER 2023-03-21 21:37:00 Merchant, Jose Elias [facility] POCT-GLUCOSE METER 2023-03-21 17:09:00 Merchant, [facility] BASIC METABOLIC PANEL 2023-03-21 16:29:00 Anthony Rausch [facility] POCT-GLUCOSE METER 2023-03-21 11:29:00 Merchant [facility] POCT-GLUCOSE METER 2023-03-21 07:35:00 Merchant, [facility] CBC (HEMOGRAM ONLY) 2023-03-21 04:34:00 Anthony Rausch [facility] BASIC METABOLIC PANEL 2023-03-21 04:34:00 Anthony Rausch [facility] MAGNESIUM 2023-03-21 04:34:00 Evon Hensleya [facility] POCT-GLUCOSE METER 2023-03-20 21:54:00 Merchant, [facility] BASIC METABOLIC PANEL 2023-03-20 17:10:00 Anthony Rausch [facility] POCT-GLUCOSE METER 2023-03-20 16:02:00 Merchant, Jose Elias [facility] POCT-GLUCOSE METER 2023-03-20 11:44:00 Merchant, Jose Elias [facility] POCT-GLUCOSE METER 2023-03-20 07:52:00 Merchant, [facility] BASIC METABOLIC PANEL 2023-03-20 05:18:00 Anthony Rausch [facility] MAGNESIUM 2023-03-20 05:18:00 JewelsEvon grey Hycandia [facility] POCT-GLUCOSE METER 2023-03-19 23:41:00 Jewels Evon Hyunna [facility] BASIC METABOLIC PANEL 2023-03-19 16:16:00 Anthony Rausch [facility] POCT-GLUCOSE METER 2023-03-19 11:38:00 Jewels [facility] POCT-GLUCOSE METER 2023-03-19 07:25:00 Jewels, [facility] BASIC METABOLIC PANEL 2023-03-19 04:34:00 Anthony Rausch [facility] MAGNESIUM 2023-03-19 04:34:00 [facility]els, [facility] POCT-GLUCOSE METER 2023-03-18 21:11:00 Jewels, [facility] POCT-GLUCOSE METER 2023-03-18 17:17:00 Jewels, [facility] ARTERIAL DOPPLER LEGS 2023-03-18 14:00:00 Abdias Montesinos I [facility] POCT-GLUCOSE METER 2023-03-18 12:50:00 Jewels [facility] B-TYPE NATRIURETIC FACTOR 2023-03-18 11:37:00 Anthony Rausch [facility] (BNP) [facility] POCT-GLUCOSE METER 2023-03-18 07:29:00 Jewels [facility] BASIC METABOLIC PANEL 2023-03-18 03:30:00 Anthony Rausch [facility] MAGNESIUM 2023-03-18 03:30:00 Jewels [facility] CBC (HEMOGRAM ONLY) 2023-03-18 03:30:00 Anthony Rausch [facility] POCT-GLUCOSE METER 2023-03-17 21:38:00 Jewels [facility] POCT-GLUCOSE METER 2023-03-17 17:49:00 Jewels [facility] POCT-GLUCOSE METER 2023-03-17 11:16:00 Jewels [facility] ECG 12-LEAD 2023-03-17 09:41:38 Abdias Montesinos [facility] ECG 12-LEAD 2023-03-17 09:41:38 Unknown, Hl7 Doctor [facility] POCT-GLUCOSE METER 2023-03-17 07:21:00 Jewels, [facility] BASIC METABOLIC PANEL 2023-03-17 05:40:00 Anthony Rausch [facility] MAGNESIUM 2023-03-17 05:40:00 Jewels, [facility] POCT-GLUCOSE METER 2023-03-16 20:55:00 Jewels, [facility] POCT-GLUCOSE METER 2023-03-16 16:44:00 Jewels, [facility] POCT-GLUCOSE METER 2023-03-16 11:08:00 Jewels, [facility] POCT-GLUCOSE METER 2023-03-16 07:44:00 Jewels, [facility] BASIC METABOLIC PANEL 2023-03-16 03:44:00 Anthony Rausch [facility] MAGNESIUM 2023-03-16 03:44:00 Jewels, [facility] POCT-GLUCOSE METER 2023-03-15 21:15:00 Jewels, [facility] POCT-GLUCOSE METER 2023-03-15 17:45:00 Jewels, [facility] POCT-GLUCOSE METER 2023-03-15 13:10:00 Jewels, [facility] POCT-GLUCOSE METER 2023-03-15 08:11:00 Jewels, [facility] CBC W/PLT COUNT & AUTO 2023-03-15 03:25:00 Anthony Rausch [facility] BASIC METABOLIC PANEL 2023-03-15 03:25:00 Anthony Rausch [facility] CBC W/PLT COUNT & AUTO 2023-03-15 03:25:00 Miracle Anthony Mai [facility] POCT-GLUCOSE METER 2023-03-14 20:59:00 Jewels, Evon [facility] POCT-GLUCOSE METER 2023-03-14 18:30:00 Jewels, [facility] POCT-GLUCOSE METER 2023-03-14 11:58:00 Jewels [facility] VENOUS DOPPLER LEGS 2023-03-14 10:30:[address] [facility] POCT-GLUCOSE METER 2023-03-14 07:26:00 Jewels [facility] CBC W/PLT COUNT & AUTO 2023-03-14 05:01:00 Anthony Rausch [facility] BASIC METABOLIC PANEL 2023-03-14 05:01:00 Miracle Anthony A [facility] MAGNESIUM 2023-03-14 05:01:00 Arleth [facility] CBC W/PLT COUNT & AUTO 2023-03-14 05:01:00 Miracle Anthony Pau [facility] POCT-GLUCOSE METER 2023-03-13 20:40:00 Jewels [facility] POCT-GLUCOSE METER 2023-03-13 16:36:00 Jewels [facility] 2D ECHO W/ DOPPLER 2023-03-13 16:32:45 Anthony Rausch [facility] (CW/PW/COLOR) [facility] CBC W/PLT COUNT & AUTO 2023-03-13 13:07:00 Anthony Rausch [facility] CBC W/PLT COUNT & AUTO 2023-03-13 13:07:00 Miracle Anthony A [facility] POCT-GLUCOSE METER 2023-03-13 12:21:00 [facility] PERFUSION SCAN 2023-03-13 11:14:00 RauschAnthony [facility] BASIC METABOLIC PANEL 2023-03-13 09:51:00 Anthony Rausch [facility] HEPATIC FUNCTION PANEL 2023-03-13 09:51:00 Rausch Anthony A [facility] D-DIMER 2023-03-13 09:51:00 Rausch Anthony Pau [facility] C-REACTIVE PROTEIN 2023-03-13 09:51:00 RauschRubenan Pau [facility] PROCALCITONIN 2023-03-13 09:51:00 Miracle Anthony Pau [facility] POCT-GLUCOSE METER 2023-03-13 07:07:00 Jewels [facility] HEMOGLOBIN A1C 2023-03-13 06:37:00 Jewels, [facility] POCT-GLUCOSE METER 2023-03-12 21:39:00 Jewels [facility] POCT-GLUCOSE METER 2023-03-12 19:09:00 Jewels [facility] XR CHEST 1 VIEW PORTABLE / 2023-03-12 13:30:00 Stephanie Willams [facility] BLOOD GAS, VENOUS 2023-03-12 13:01:00 Stephanie Willams [facility] LACTIC ACID, VENOUS 2023-03-12 13:01:00 Stephanie Willams [facility] B-TYPE NATRIURETIC FACTOR 2023-03-12 12:58:00 Stephanie Willams [facility] (BNP) [facility] CBC W/PLT COUNT & AUTO 2023-03-12 12:58:00 Stephanie Willams [facility] BASIC METABOLIC PANEL 2023-03-12 12:58:00 Stephanie Willams I [facility] HIGH SENSITIVITY TROPONIN I 2023-03-12 12:58:00 Stephanie Willams [facility] MAGNESIUM 2023-03-12 12:58:00 Stephanie Willams [facility] CBC W/PLT COUNT & AUTO 2023-03-12 12:58:00 Stephanie Willams [facility] CRITICAL CARE 2023-03-12 12:53:31 Stephanie Willams [facility] ECG 12-LEAD 2023-03-12 12:30:54 Unknown, 7 [facility] ECG 12-LEAD 2023-03-12 12:30:54 Unknown, [address] ECG 12-LEAD 2023-03-12 12:29:11 Unknown, [address] ECG 12-LEAD 2023-03-12 12:28:52 [facility]ерина [facility] ECG 12-LEAD 2023-03-12 12:28:52 Unknown, 7 [facility] ECG 12-LEAD 2023-03-12 12:28:34 Unknown, [address] ECG 12-LEAD 2023-03-12 10:10:12 Unknown, 7 [facility] ECG 12-LEAD 2023-03-12 10:10:12 Unknown, 7 [facility] CARDIAC CATH REPORT - SCAN 2023-03-12 00:00:00 Provider, [facility] EKG-SCANNED 2023-03-12 00:00:00 Provider, [facility] B-TYPE NATRIURETIC FACTOR 2023-03-09 13:15:00 Jessie Kat [facility] (BNP) [facility] COMPREHENSIVE METABOLIC 2023-03-09 13:15:00 Jessie [facility] HIGH SENSITIVITY TROPONIN I 2023-03-09 13:15:00 Jessie [facility] XR FOOT 3 VIEWS LEFT 2023-03-09 12:54:00 Jessie [facility] ECG 12-LEAD 2023-03-09 12:18:04 Kat Roman [facility] ECG 12-LEAD 2023-03-09 12:18:04 Unknown, Hl7 Doctor [facility] CBC W/PLT COUNT & AUTO 2023-03-09 12:11:00 Kat Roman [facility] CBC W/PLT COUNT & AUTO 2023-03-09 12:11:00 Kat Roman [facility] EKG-SCANNED 2023-03-09 00:00:00 Provider, Default [facility] POCT-GLUCOSE METER 2022-11-16 12:10:00 Ching Katelynnmac [facility] POCT-GLUCOSE METER 2022-11-16 06:17:00 [facility] BASIC METABOLIC PANEL 2022-11-16 04:29:00 Julia Cochran [facility] POCT-GLUCOSE METER 2022-11-15 22:01:00 Ching [facility] POCT-GLUCOSE METER 2022-11-15 16:51:00 [facility] POCT-GLUCOSE METER 2022-11-15 11:01:00 Ching [facility] BASIC METABOLIC PANEL 2022-11-15 08:59:00 Julia Cochran [facility] POCT-GLUCOSE METER 2022-11-15 06:37:00 [facility] POCT-GLUCOSE METER 2022-11-14 21:08:00 [facility] 2D ECHO W/ DOPPLER 2022-11-14 17:03:33 Sen, [facility] (CW[facility] 2D ECHO W/ DOPPLER 2022-11-14 17:03:33 Adeelargo, [facility] (CW/PW/COLOR) [facility] POCT-GLUCOSE METER 2022-11-14 16:37:00 Ching [facility] POCT-GLUCOSE METER 2022-11-14 10:53:00 Ching [facility] POCT-GLUCOSE METER 2022-11-14 06:36:00 Aretha, Shawn [facility] CALCIUM, IONIZED 2022-11-14 04:31:00 Aretha, Shawn Ellis [facility] COMPREHENSIVE METABOLIC 2022-11-14 04:31:00 Aretha, Shawn Corral I [facility] PANEL [facility] MAGNESIUM 2022-11-14 04:31:00 Aretha, [facility]OS[facility]US 2022-11-14 04:31:00 Aretha, Shawn [facility] CBC W/PLT COUNT & AUTO 2022-11-14 04:31:00 Aretha, [facility] CREATINE KINASE (CK) 2022-11-14 04:31:00 Aretha, [facility] CBC W/PLT COUNT & AUTO 2022-11-14 04:31:00 Aretha, [facility] PROTEIN, RANDOM URINE 2022-11-13 22:33:00 Aretha, [facility] CREATININE, RANDOM URINE 2022-11-13 22:33:00 Aretha, Shawn [facility] US RENAL COMPLETE 2022-11-13 21:25:00 Aretha, [facility] POCT-GLUCOSE METER 2022-11-13 20:40:00 Aretha, Shawn [facility] SARS-COV2/INFLUENZA/RSV 2022-11-13 19:13:00 Steffanie Puente [facility] RT-PCR [facility] BLOOD GAS, VENOUS 2022-11-13 19:13:[address] [facility] KETONE, BLOOD 2022-11-13 19:13:[address] [facility] ECG INTERPRETATION 2022-11-13 18:19:20 Steffanie Puente [facility] URINALYSIS W/ REFLEX URINE 2022-11-13 13:29:00 Steffanie Puente [facility] CULTURE [facility] COMPREHENSIVE METABOLIC 2022-11-13 13:22:00 Steffanie Puente [facility] PANEL [facility] MAGNESIUM 2022-11-13 13:22:00 Steffanie Puente [facility] PHOSPHORUS 2022-11-13 13:22:00 Steffanie Puente [facility] CBC W/PLT COUNT & AUTO 2022-11-13 13:21:[address] [facility] HIGH SENSITIVITY TROPONIN I 2022-11-13 13:21:00 Steffanie Puente [facility] B-TYPE NATRIURETIC FACTOR 2022-11-13 13:21:00 Steffanie Puente CH, I [facility] (BNP) [facility] CBC W/PLT COUNT & AUTO 2022-11-13 13:21:[address] [facility] ECG 12-LEAD 2022-11-13 12:07:38 Unknown, Hl7 [facility] ECG 12-LEAD 2022-11-13 12:07:38 Unknown, Hl7 [facility] EKG-SCANNED 2022-11-13 00:00:00 ProviderKymberly [facility] B NATRIURETIC PEPTIDE 2022-10-09 14:39:00 [facility]s [facility] HEM[facility] 2022-10-09 14:39:00 Jesús [facility] COMPREHENSIVE METABOLIC 2022-10-09 14:39:00 Jesús [facility] PANEL TRANSTHORACIC 2022-10-08 16:41:54 Jesús [facility] ECHOCARDIOGRAM COMPLETE W CONT STRAIN 3D IF NEEDED ECG 12-LEAD 2022-09-11 20:19:00 Jesús [facility] XR SHOULDER COMPLETE 2 2022-04-03 11:48:00 Sincere Wade CH I [facility] COMPREHENSIVE METABOLIC 2022-04-03 11:31:[address] [facility] HEMOGLOBIN A1C 2022-04-03 11:31:00 [facility] CBC W/PLT COUNT & AUTO 2022-04-03 11:31:00 [facility] TSH/FREE T4 IF INDICATED 2022-04-03 11:31:00 [facility] URIC ACID 2022-04-03 11:31:00 [facility] CBC W/PLT COUNT & AUTO 2022-04-03 11:31:00 RodgerazSincere nichols [facility] SARS-COV-2 COVID-19 VACCINE 2021-10-07 17:00:36 Doctor Misty sloan, [facility] BOOSTER,0.25ML,IM (MODERNA) [facility] CT KNEE RIGHT WO CONTRAST 2021-06-01 06:08:32 Aneta Boucher [facility] XR KNEE 3 VW RIGHT 2021-06-01 05:01:40 Aneta Boucher [facility] CONSENT/REFUSAL FOR 2021-06-01 04:40:38 Doctor Min, [facility] DIAGNOSIS AND TREATMENT [facility] POCT-GLUCOSE METER 2021-04-15 16:14:00 Jana Valdovinos [facility] POCT-GLUCOSE METER 2021-04-15 11:28:00 Jana Valdovinos [facility] POCT-GLUCOSE METER 2021-04-15 07:40:00 Jana Valdovinos [facility] BASIC METABOLIC PANEL (7) 2021-04-15 04:53:00 Jana Valdovinos [facility] MAGNESIUM 2021-04-15 04:53:00 Jana Valdovinos [facility] POCT-GLUCOSE METER 2021-04-14 19:54:00 Jana Valdovinos [facility] POCT-GLUCOSE METER 2021-04-14 16:17:00 Jana Valdovinos [facility] POCT-GLUCOSE METER 2021-04-14 11:25:00 Jana Valdovinos [facility] POCT-GLUCOSE METER 2021-04-14 07:38:00 Jana Valdovinos [facility] BASIC METABOLIC PANEL (7) 2021-04-14 03:43:00 Jana Valdovinos [facility] MAGNESIUM 2021-04-14 03:43:00 Abran [facility] POCT-GLUCOSE METER 2021-04-13 21:25:00 Jana Valdovinos [facility] POCT-GLUCOSE METER 2021-04-13 17:02:00 Jana Valdovinos [facility] URINE CULTURE 2021-04-13 12:57:00 Abran [facility] POCT-GLUCOSE METER 2021-04-13 12:24:00 Jana Valdovinos [facility] POCT-GLUCOSE METER 2021-04-13 08:10:00 Jana Valdovinos [facility] CALCIUM, IONIZED 2021-04-13 04:49:00 [facility] COMPREHENS[facility]ABOLIC 2021-04-13 04:49:00 [facility] 2021-04-13 04:49:00 Abran [facility] PHOSPHORUS 2021-04-13 04:49:00 Abran [facility] CBC W/PLT COUNT & AUTO 2021-04-13 04:49:00 Abran [facility] CBC W/PLT COUNT & AUTO 2021-04-13 04:49:00 Abran [facility] POCT-GLUCOSE METER 2021-04-12 20:47:00 Jana Valdovinos [facility] POCT-GLUCOSE METER 2021-04-12 16:45:00 Jana Valdovinos [facility] POCT-GLUCOSE METER 2021-04-12 12:01:00 Jana Valdovinos [facility] 2D ECHO W/ DOPPLER 2021-04-12 10:13:56 Nicko Byrd [facility] (CW/PW/COLOR) [facility] APTT 2021-04-12 09:42:00 Jana Valdovinos [facility] POCT-GLUCOSE METER 2021-04-12 08:00:00 Jana Valdovinos [facility] MAGNESIUM 2021-04-12 04:02:00 Keke Mckeon [facility] PHOSPHORUS 2021-04-12 04:02:00 Keke Mckeon [facility] CBC W/PLT COUNT & AUTO 2021-04-12 04:02:00 Keke Mckeon [facility] CALCIUM, IONIZED 2021-04-12 04:02:00 [facility] COMPREHENSIVE METABOLIC 2021-04-12 04:02:00 Abran [facility] CBC W/PLT COUNT & AUTO 2021-04-12 04:02:00 Keke Mckeon CH, I [facility] URINALYSIS W/ MICROSCOPIC 2021-04-12 01:59:00 Keke Mckeon [facility] SODIUM, RANDOM URINE 2021-04-12 01:59:00 Keke Mckeon [facility] CREATININE, RANDOM URINE 2021-04-12 01:59:00 Keke Mckeon [facility] PROTEIN, RANDOM URINE 2021-04-12 01:59:00 Keke Mckeon [facility] APTT 2021-04-11 23:33:00 Keke Mckeon [facility] APTT 2021-04-11 22:21:00 Kkee Mckeon [facility] POCT-GLUCOSE METER 2021-04-11 21:33:00 Keke Mckeon [facility] VENOUS DOPPLER LEGS 2021-04-11 19:28:00 Keke Mckeon [facility] POCT-GLUCOSE METER 2021-04-11 17:08:00 Keke Mckeon [facility] CBC (HEMOGRAM ONLY) 2021-04-11 15:13:00 Keke Mckeon [facility] APTT 2021-04-11 15:13:00 Keke Mckeon [facility] NM LUNG PERFUSION SCAN 2021-04-11 13:12:00 Yi Luna [facility] POCT-GLUCOSE METER 2021-04-11 11:01:00 Keke Mckeon Shmuel [facility] BLOOD GAS, ARTERIAL 2021-04-11 09:32:00 Keke Mckeon [facility] SARS-COV2/INFLUENZA/RSV 2021-04-11 08:26:00 Stephanie Willams [facility] RT-PCR [facility] D-DIMER 2021-04-11 04:26:00 Stephanie Willams [facility] XR CHEST 2 VIEWS 2021-04-11 03:49:00 Екатерина analy [facility] B-TYPE NATRIURETIC FACTOR 2021-04-11 03:32:00 Stephanie Willams [facility] (BNP) [facility] CBC W/PLT COUNT & AUTO 2021-04-11 03:32:00 Stephanie Willams [facility] BASIC METABOLIC PANEL (7) 2021-04-11 03:32:00 Stephanie Willams g [facility] HIGH SENSITIVITY TROPONIN I 2021-04-11 03:32:00 Stephanie Willams mark [facility] CBC W/PLT COUNT & AUTO 2021-04-11 03:32:00 Stephanie Willams [facility] ECG 12-LEAD 2021-04-11 03:18:26 Stephanie Willams [facility] ECG 12-LEAD 2021-04-11 03:18:26 Unknown, Hl7 Doctor [facility] REPORT OF PROCEDURE - 2021-04-11 00:00:00 Provider, Default [facility] ENDOSCOPY SCAN Scanning [facility] ASSIGNMENT OF BENEFITS 2020-08-30 15:44:02 Doctor Unassigned, [facility] BASIC METABOLIC PANEL (NA, 2020-08-22 20:40:00 Anjelica [facility] K, CL, CO2, GLUCOSE, BUN, Medica l Branch CREATININE, CA) ASSIGNMENT OF BENEFITS 2020-08-20 15:53:22 [facility] CONSENT/REFUSAL FOR 2020-05-08 16:05:11 Doctor Unassigned, [facility] DIAGNOSIS AND TREATMENT [facility] ASSIGNMENT OF BENEFITS 2020-05-08 16:04:49 [facility] POTASSIUM SERUM 2020-04-25 12:38:00 Jose Marks [facility] POCT GLUCOSE(AGE >30DAYS) 2020-04-25 12:32:00 [facility] DAY [facility] - ADC 2020-04-25 05:01:00 Doctor Unassigned, [facility] CONSENT/REFUSAL FOR 2020-04-18 21:46:39 Doctor Unassalda, [facility] DIAGNOSIS AND TREATMENT [facility] ASSIGNMENT OF BENEFITS 2020-04-18 21:44:48 Doctor Unassigned, [facility] PHYSICIAN ORDERS 2020-04-18 05:01:00 Doctor Min, [facility] Plan of Care Planned Activity Planned Date Details Comments Source Future Scheduled 2024-06-[address] [facility] Test 00:00:00 Counseling and Screening [facility] (12+) [code = Tobacco Cessation Counseling and Screening (12+)] Future Scheduled 2023-11-[address] [facility] Test 00:00:00 Counseling and Screening [facility] (12+) [code = Tobacco Cessation Counseling and Screening (12+)] Future Scheduled 2023-10-27 Screening for malignant [facility] 10:35:42 neoplasm of colon Hospital (procedure) [code = 166871970] Future Scheduled 2023-10-27 Screening for malignant [facility] Test 10:35:42 neoplasm of colon Hospital (procedure) [code = 399956277] Future Scheduled 2023-10-27 Screening for malignant [facility] Test 10:35:42 neoplasm of colon Hospital (procedure) [code = 899641309] Future Scheduled 2023-10-27 Hepatitis C screening [facility] 10:35:42 (procedure) [code = Hospital [id number]] Future Scheduled 2023-10-27 Screening for malignant [facility] Test 10:35:42 neoplasm of cervix Hospital (procedure) [code = 296850028] Future Scheduled 2023-10-27 BREAST CANCER SCREENING [facility] 10:35:42 [code = BREAST CANCER Hospit al SCREENING] Future Scheduled 2023-10-27 Screening for malignant [facility] Test 10:35:42 neoplasm of colon Hospital (procedure) [code = [id number]] Future Scheduled 2023-10-27 Screening for malignant [facility] Test 10:35:42 neoplasm of colon Hospital (procedure) [code = 441430563] Future Scheduled 2023-10-27 65+ PNEUMOCOCCAL VACCINE [facility] Test 10:35:42 (3 - PCV) [code = 65+ Hospit al PNEUMOCOCCAL VACCINE (3 - PCV)] Future Scheduled 2023-10-27 SHINGLES VACCINES (2 of [facility] Test 10:35:42 3) [code = SHINGLES Hospital VACCINES (2 of 3)] Future Scheduled 2023-10-27 COVID-19 VACCINE (4 - [facility] 10:35:42 season) [code = Hosp ital COVID-19 VACCINE (4 - season)] Future Scheduled 2023-10-27 INFLUENZA VACCINE (#1) [facility] Test 10:35:42 [code = INFLUENZA VACCINE Ho spital (#1)] Future Scheduled 2023-09-14 PNEUMOCOCCAL VACCINE 0-[address] [facility] Test 00:00:00 YRS (2 of 2 - PPSV23) Medica l Center [code = PNEUMOCOCCAL VACCINE 0-64 YRS (2 of 2 - PPSV23)] Future Scheduled 2023-07-30 Influenza Vaccine (#1) [facility] 00:[facility]00 [code = Influenza Vaccine Me dical Center (#1)] Future Scheduled 2023-06-05 Screening for malignant [facility] Test 10:36:59 neoplasm of colon Hospital (procedure) [code = [id number]] Future Scheduled 2023-06-05 Screening for malignant [facility] 10:36:59 neoplasm of colon Hospital (procedure) [code = 452640628] Future Scheduled 2023-06-05 Screening for malignant [facility] 10:36:59 neoplasm of colon Hospital (procedure) [code = 787638853] Future Scheduled 2023-06-05 Hepatitis C screening [facility] 10:36:59 (procedure) [code = Hospital [id number]] Future Scheduled 2023-06-05 Screening for malignant [facility] 10:36:59 neoplasm of cervix Hospital (procedure) [code = 932521809] Future Scheduled 2023-06-05 BREAST CANCER SCREENING [facility] 10:36:59 [code = BREAST CANCER Hospit al SCREENING] Future Scheduled 2023-06-05 Screening for malignant [facility] 10:36:59 neoplasm of colon Hospital (procedure) [code = 204545127] Future Scheduled 2023-06-05 Screening for malignant [facility] 10:36:59 neoplasm of colon Hospital (procedure) [code = 131468722] Future Scheduled 2023-06-05 65+ PNEUMOCOCCAL VACCINE [facility] 10:36:59 (3 - PCV) [code = 65+ Hospit al PNEUMOCOCCAL VACCINE (3 - PCV)] Future Scheduled 2023-06-05 SHINGLES VACCINES (2 of [facility] 10:36:59 3) [code = SHINGLES Hospital VACCINES (2 of 3)] Future Scheduled 2023-06-05 COVID-19 VACCINE (4 - [facility] 10:36:59 Moderna series) [code = Hosp ital COVID-19 VACCINE (4 - Moderna series)] Future Scheduled 2023-06-05 INFLUENZA VACCINE [code = [facility] 10:36:59 INFLUENZA VACCINE] Hospital Future Scheduled 2023-04-08 Lipid panel (procedure) [facility] 00:00:00 [code = 58367352] Medical Ce nter Future Scheduled 2023-04-08 Lipid panel (procedure) [facility] 00:00:00 [code = 46208789] Medical Ce nter Future Scheduled 2023-04-08 Lipid panel (procedure) [facility] 00:00:00 [code = 25239913] Medical Ce nter Future Scheduled 2022-11-[address] [facility] 00:00:00 (12+) [code = DEPRESSION Med [facility] Center SCREENING (12+)] Future Scheduled 2021-12-02 COVID-19 VACCINE (4 - [facility] series) [code = COVID-19 VACCINE (4 - Booster for Moderna series)] Future Scheduled 2021-12-02 COVID-19 VACCINE (4 - [facility] series) [code = COVID-19 VACCINE (4 - Booster for Moderna series)] Future Scheduled 2021-11-20 Hepatitis C screening [facility] 13:15:23 (procedure) [code = Hospital 734859053] Future Scheduled 2021-11-20 Screening for malignant [facility] 13:15:23 neoplasm of cervix Hospital (procedure) [code = 866867255] Future Scheduled 2021-11-20 BREAST CANCER SCREENING [facility] 13:15:23 [code = BREAST CANCER Hospit al SCREENING] Future Scheduled 2021-11-20 COLONOSCOPY SCREENING [facility] 13:15:23 [code = COLONOSCOPY Hospital SCREENING] Future Scheduled 2021-11-20 SHINGLES VACCINES (#2) [facility] 13:15:23 [code = SHINGLES VACCINES Ho spital (#2)] Future Scheduled 2021-11-20 INFLUENZA VACCINE [code = [facility] 13:15:23 INFLUENZA VACCINE] Hospital Future Scheduled 2021-11-20 COVID-19 VACCINE (3 - [facility] 13:15:23 Booster for [facility] Hospital series) [code = COVID-19 VACCINE (3 - Booster for Moderna series)] Future Scheduled 2021-11-20 Hepatitis C screening [facility] 13:15:23 (procedure) [code = Hospital 356968025] Future Scheduled 2021-11-20 Screening for malignant [facility] 13:15:23 neoplasm of cervix Hospital (procedure) [code = 026015484] Future Scheduled 2021-11-20 BREAST CANCER SCREENING [facility] 13:15:23 [code = BREAST CANCER Hospit al SCREENING] Future Scheduled 2021-11-20 COLONOSCOPY SCREENING [facility] 13:15:23 [code = COLONOSCOPY Hospital SCREENING] Future Scheduled 2021-11-20 SHINGLES VACCINES (#2) [facility] 13:15:23 [code = SHINGLES VACCINES Ho spital (#2)] Future Scheduled 2021-11-20 INFLUENZA VACCINE [code = [facility] 13:15:23 INFLUENZA VACCINE] Hospital Future Scheduled 2021-11-20 COVID-19 VACCINE (3 - [facility] 13:15:23 Booster for [facility] Hospital series) [code = COVID-19 VACCINE (3 - Booster for Moderna series)] Future Scheduled 2021-07-30 INFLUENZA VACCINE (#1) [facility] [code = INFLUENZA VACCINE Me dical Center (#1)] Future Scheduled 2021-05-[address] [facility] 00[facility]00 measurement (procedure) [facility] [code = 91964152] Future Scheduled 2021-02-[address] [facility] 00:00:00 measurement (procedure) [facility] [code = 31103257] Future Scheduled 2021-02-[address] [facility] 00:00:00 measurement (procedure) [facility] [code = 63989865] Future Scheduled 2020-12-10 SHINGLES VACCINES ([address] [facility] 00:00:00 3) [code = SHINGLES Medical Center VACCINES (3 of 3)] Future Scheduled 2020-12-10 SHINGLES VACCINES ([address] [facility] 00:00:00 3) [code = SHINGLES Medical Center VACCINES (3 of 3)] Future Scheduled 2020-12-10 SHINGLES VACCINES ([address] [facility] 00:00:00 3) [facility] Future Scheduled 2019-09-14 PNEUMOCOCCAL VACCINE 0-[address] [facility] 00:00:00 YRS (2 - PCV) [code = Medica l Center PNEUMOCOCCAL VACCINE 0-64 YRS (2 - PCV)] Future Scheduled 2019-09-14 PNEUMOCOCCAL 65+ YRS (2 - [facility] 00:00:00 PCV) [code = PNEUMOCOCCAL Me dical Center 65+ YRS (2 - PCV)] Future Scheduled 2013-02-28 MEDIC[address] ANNUAL WELLNESS [facility] 00:00:00 (YEAR 2 or FIRST YEAR if Med ical Center no IPPE) [code = MEDICARE ANNUAL WELLNESS (YEAR 2 or FIRST YEAR if no IPPE)] Future Scheduled 2013-02-28 MEDIC[address] ANNUAL WELLNESS [facility] 00:00:00 (YEAR 2 or FIRST YEAR if Med ical Center no IPPE) [code = MEDICARE ANNUAL WELLNESS (YEAR 2 or FIRST YEAR if no IPPE)] Future Scheduled 2013-02-28 MEDIC[address] ANNUAL WELLNESS [facility] 00:00:00 (YEAR 2 or FIRST YEAR if Med ical Center no IPPE) [code = MEDICARE ANNUAL WELLNESS (YEAR 2 or FIRST YEAR if no IPPE)] Future Scheduled 1979 Screening for malignant [facility] 00:00:00 neoplasm of cervix Medical C enter (procedure) [code = 155113496] Future Scheduled 1979 Screening for malignant [facility] 00:00:00 neoplasm of cervix Medical C enter (procedure) [code = 099668720] Future Scheduled 1979 Screening for malignant [facility] 00:00:00 neoplasm of cervix Medical C enter (procedure) [code = 849187967] Future Scheduled 1977 DTAP/TDAP/TD VACCINES ([address] [facility] 00:00:00 - Tdap) [code = Medical Cent er DTAP/TDAP/TD VACCINES (1 - Tdap)] Future Scheduled 1977 DTAP/TDAP/TD VACCINES ([address] [facility] 00:00:00 - Tdap) [code = Medical Cent er DTAP/TDAP/TD VACCINES (1 - Tdap)] Future Scheduled 1977 DTAP/TDAP/TD VACCINES ([address] [facility] 00:00:00 - Tdap) [code = Medical Cent er DTAP/TDAP/TD VACCINES (1 - Tdap)] Future Scheduled [...] HEPATITIS C Medical Center SCREENING] Future Scheduled [address] [facility] 00:[facility]:00 virus screening Medical Cent er (procedure) [code = 173930196] Future Scheduled 1968 DIABETIC EYE EXAM [code = [facility] 00:00:00 DIABETIC EYE EXAM] Medical C enter Future Scheduled 1968 Diabetic foot examination [facility] 00:00:00 (regime/therapy) [code = [facility] 457231078] Future Scheduled 1968 Urine screening for [facility] 00:00:00 protein (procedure) [code [facility] = 458002701] Future Scheduled 1968 DIABETIC EYE EXAM [code = [facility] 00:00:00 DIABETIC EYE EXAM] Medical C enter Future Scheduled 1968 Diabetic foot examination [facility] 00:00:00 (regime/therapy) [code = [facility] 544817277] Future Scheduled 1968 Urine screening for [facility] 00:00:00 protein (procedure) [code [facility] = 588162645] Future Scheduled 1968 DIABETIC EYE EXAM [code = [facility] 00:00:00 DIABETIC EYE EXAM] Medical C enter Future Scheduled 1968 Diabetic foot examination [facility] 00:00:00 (regime/therapy) [code = [facility] 854220840] Future Scheduled 1968 Urine screening for [facility] 00:00:00 protein (procedure) [code [facility] = 394307468] Future Scheduled 1958 Screening for malignant [facility] 00:00:00 neoplasm of breast Medical C enter (procedure) [code = 416328053] Future Scheduled 1958 Screening for malignant [facility] 00:00:00 neoplasm of colon Medical Ce nter (procedure) [code = 210048910] Future Scheduled 1958 Screening for malignant [facility] 00:00:00 neoplasm of breast Medical C enter (procedure) [code = 287772175] Future Scheduled 1958 CT Colonography (combo) [facility] 00:00:00 [code = CT Colonography [facility] (combo)] Future Scheduled 1958 Screening for malignant [facility] 00:00:00 neoplasm of colon Medical Ce nter (procedure) [code = 560301569] Future Scheduled 1958 Screening for malignant [facility] 00:00:00 neoplasm of colon Medical Ce nter (procedure) [code = 905161287] Future Scheduled 1958 Screening for malignant [facility] 00:00:00 neoplasm of colon Medical Ce nter (procedure) [code = 718039720] Future Scheduled 1958 Screening for malignant [facility] 00:00:00 neoplasm of colon Medical Ce nter (procedure) [code = 787761028] Future Scheduled 1958 Sigmoidoscopy [[facility] S[facility]oidoscopy] [facility] Future Scheduled 1958 Screening for malignant [facility] 00:00:00 neoplasm of breast Medical C enter (procedure) [code = 906811220] Future Scheduled 1958 CT Colonography (combo) [facility] 00:00:00 [code = CT Colonography [facility] (combo)] Future Scheduled 1958 Screening for malignant [facility] 00:00:00 neoplasm of colon Medical Ce nter (procedure) [code = 355783382] Future Scheduled 1958 Screening for malignant [facility] 00:00:00 neoplasm of colon Medical Ce nter (procedure) [code = 621704447] Future Scheduled 1958 DXA SCAN [code = DXA [facility] 00:00:00 SCAN] [facility] Future Scheduled 1958 Screening for malignant [facility] 00:00:00 neoplasm of colon Medical Ce nter (procedure) [code = 252165379] Future Scheduled 1958 Screening for malignant [facility] 00:00:00 neoplasm of colon Medical Ce nter (procedure) [code = 356964010] Future Scheduled 1958 Sigmoidoscopy [code [facility] S[facility]oidoscopy] Medical Cente r Encounters Start End Encounter Admission Attending Care Care Encounter Source Date/Time Date/Time Type Type Clinicians Facility Department ID 2023-07-14 Inpatient ER SEVERE, [facility] [id number] SLE 00:00:00 VAMSHI 2023-07-13 Inpatient ER SEVERE, [facility] [id number] SLE 08:16:22 VAMSHI 2021-09-29 Emergency [facility] [id number] Univers 05:48:34 [facility] 2021-09-26 [facility] [id number] Univers 00:01:23 [facility] 2021-09-25 [facility] [id number] Univers 21:30:16 [facility] 2023-08-17 2023-08-17 Office Jesús, 1.2.840.1 [id number] 2099 [id number] Methodi 10:20:00 11:36:03 Visit Moustapha Mckenzie 90509.1.[address] 3.430.2.7 Hospit a .3.310289 l .8 2023-08-17 2023-08-17 Travel 1.2.840.1 1.2.889.421 [id number] [id number] Methodi 00:00:00 00:00:[address] 3.430.2.7 0.2.7.3.698 Ho spita .3.804395 084.8 l .8 2023-08-17 2023-08-17 Outpatient JESÚS [facility] [id number] 00:00:00 00:00:00 [address] 2023-07-29 2023-07-29 Telephone Naima 1.2.840.1 [id number] Methodi 00:00:00 00:00:[address] 3.430.2.7 Hospit a .3.044777 l .8 2023-07-13 2023-07-14 Inpatient ER BERSHAD, SLE Emergency [id number] [facility] 05:08:00 17:15:00 TAVON 2023-07-14 2023-07-14 Inpatient ER SEVERE, [facility] SLE [id number] [facility]H 08:52:47 00:00:00 VAMSHI 2023-07-14 2023-07-14 Inpatient ER BERSHAD, [facility]H SLEH [id number] [facility]H 08:52:37 00:00:00 TAVON 2023-07-14 2023-07-14 Outpatient SEVERE, [facility]H [facility]H [id number] [facility] 00:00:00 00:00:00 VAMSHI 2023-07-13 2023-07-13 Emergency ER SEVERE, [facility]H [facility] [id number] [facility] 07:26:52 07:26:52 VAMSHI 2023-07-13 2023-07-13 Emergency ER SEVERE, SLEH [facility] [id number] [facility] 07:26:23 07:26:23 VAMSHI 2023-07-13 2023-07-13 Emergency ER SEVERE, [facility]H [facility]H [id number] [facility] 07:26:07 07:26:07 VAMSHI 2023-07-13 2023-07-13 Emergency ER SEVERE, [facility]H SLEH [id number] [facility]H 07:23:32 07:23:32 VAMSHI 2023-06-11 2023-06-11 [facility] [id number] [facility] [address] 11:30:00 11:45:00 Visit [facility] 2023-06-11 2023-06-[address] [id number] SLE 10:39:25 10:39:25 [facility] 2023-06-04 2023-06-04 Orders Jesús, 1.2.840.1 [id number] Methodi 00:00:00 00:00:00 Only Moustapha Stevens50.1.[address] 3.430.2.7 Hospit a .3.772748 l .8 2023-06-04 2023-06-04 Abstract Sheri [facility] [id number] 00:00[facility]00 00:00:00 [facility] 2023-06-04 2023-06-04 Orders Younis, 1.2.840.1 [id number] 2099 [id number] Methodi 00:00:00 00:00:00 Only Moustapha Mckenzie 33404.1.[address] 3.430.2.7 Hospit a .3.453421 l .8 2023-05-27 2023-05-27 Office Younis, 1.2.840.1 [id number] 2099 [id number] Methodi 10:30:00 11:45:52 Visit Moustapha Mckenzie 95571.1.[address] 3.430.2.7 Hospit a .3.557587 l .8 2023-05-27 2023-05-27 Office Younis, 1.2.840.1 [id number] 2099 [id number] Methodi 10:30:00 11:45:52 Visit Moustapha Mckenzie 56590.1.[address] 3.430.2.7 Hospit a .3.522629 l .8 2023-05-27 2023-05-27 Travel 1.2.840.1 1.2.066.248 2086 [id number] Methodi 00:00:00 00:00:[address] 3.430.2.7 0.2.7.3.698 Ho spita .3.011776 084.8 l .8 2023-05-27 2023-05-27 Outpatient [facility] [id number] 00:00:00 00:00:[address] 2023-05-27 2023-05-27 Travel 1.2.840.1 1.2.913.628 0304 [id number] Methodi 00:00:00 00:00:[address] 3.430.2.7 0.2.7.3.698 Ho spita .3.589772 084.8 l .8 2023-05-10 2023-05-10 Travel 1.2.840.1 1.2.032.862 2289 [id number] Methodi 00:00:00 00:00:[address] 3.430.2.7 0.2.7.3.698 Ho spita .3.548818 084.8 l .8 2023-05-10 2023-05-10 Travel 1.2.840.1 1.2.272.516 2930 [id number] Methodi 00:00:00 00:00:[address] 3.430.2.7 0.2.7.3.698 Ho spita .3.709486 084.8 l .8 2023-04-28 2023-04-28 [facility] [id number] 00:00:00 00:00:00 [facility] 2023-04-27 2023-04-27 [facility] AmandamaritzapabloNAYELYKARAN 1.2.840.114 1 [id number] [facility] 16:36:00 23:59:00 Encounter Venita Clancy 350.1.13.10 ity [facility] 4.2.7.2.686 Elder as [id number] [address] 2023-04-27 2023-04-27 [facility] [id number] Univers 00:00:00 23:59:00 VENITA itoumou [facility] 2023-04-09 2023-04-09 Uyen Miner [facility] [id number] 00:00:00 00:00:00 [facility] 2023-04-03 2023-04-03 Uyen Wade [facility] [id number] 00:00:00 00:00:00 [facility] 2023-04-02 2023-04-02 Outpatient [facility] Surgery [id number] [facility] 05:14:00 15:12:00 MAURA VAUGHAN 2023-04-02 2023-04-02 Hospital EL Solis [facility] [id number] 05:14:00 15:12:00 Encounter Donaldo Vaughan [facility] 2023-04-02 2023-04-02 Surgery Solis [facility] [id number] 07:15:00 11:23:00 Lazarus Vaughan [facility] 2023-04-02 2023-04-02 Anesthesia Billy Ministerio Venita [facility] [id number] 07:45:00 10:59:00 Event Brian Cruz [facility] 2023-03-12 2023-03-30 Inpatient ER [facility] Emergency [id number] [facility] 12:21:00 14:49:00 2023-03-12 2023-03-30 Hospital ER Stephanie Willams [facility] [id number] 12:21:00 14:49:00 [facility] 2023-03-26 2023-03-26 Surgery Anthony Rausch [facility] [id number] 07:45:00 09:33:00 A [facility] 2023-03-12 2023-03-12 Office Sheri [facility] [id number] 11:30:00 11:45:00 Visit [facility] 2023-03-12 2023-03-12 Outpatient [facility] [id number] [facility] 11:03:00 11:03:00 SINCERE 2023-03-09 2023-03-09 Emergency ER [facility] Emergency [id number] [facility] 10:21:00 14:36:00 KAT 2023-03-09 2023-03-09 Emergency ER Jessie, [facility] [id number] 10:21:00 14:36:00 Kat [facility] 2023-03-09 2023-03-09 Orders [facility] [id number] 00:00:00 00:00:00 [facility] 2023-03-09 2023-03-09 Travel [facility] [id number] [facility] 00:00:00 00:00:00 [facility] 2023-03-07 2023-03-07 Refill Sheri, [facility] [id number] [id number] 00:00:00 00:00:00 [facility] 2023-03-01 2023-03-01 Office Sheri [facility] [id number] [id number] 11:15:00 11:30:00 Visit [facility] 2023-03-01 2023-03-01 Outpatient SHERI [facility] [id number] [facility] 10:42:56 10:42:56 [facility] 2023-02-20 2023-02-20 Refill Sheri [facility] [id number] [id number] 00:00:00 00:00:00 [facility] 2023-01-23 2023-01-23 Refill Sheri [facility] [id number] [id number] 00:00:00 00:00:00 [facility] 2023-01-22 2023-01-22 Refill Kristofer [facility] [id number] 00:00:00 00:00:00 [facility] 2023-01-04 2023-01-04 Refill Sheri [facility] [id number] 00:00:00 00:00:00 [facility] 2022-12-21 2022-12-21 Refill Sheri [facility] [id number] 00:00:00 00:00:00 [facility] 2022-11-13 2022-11-16 [facility] Steffanie Lares [facility] [id number] 12:02:00 13:27:00 Encounter Aretha Shawndhiraj Gonzalez [facility] 2022-11-13 2022-11-16 Inpatient ER MOE COCHRAN Emergency [id number] [facility] 12:02:00 13:27:00 [facility] 2022-11-14 2022-11-14 Travel [facility] [id number] [facility] 00:00:00 00:00:00 [facility] 2022-11-13 2022-11-13 Office Sheri [facility] [id number] [facility] 11:00:00 11:15:00 Visit [facility] 2022-11-13 2022-11-13 Outpatient PIA [facility] [id number] SLE 10:52:54 10:52:54 [facility] 2022-11-13 2022-11-13 Orders [facility] [id number] 00:00:00 00:00:00 Only [facility] 2022-11-13 2022-11-13 Travel [facility] [id number] [facility] 00:00:00 00:00:00 [facility] 2022-11-06 2022-11-06 Outpatient PIA [facility]ADE [facility] [id number] SLE 00:00:00 00:00:00 [facility] 2022-10-21 2022-10-21 Refbrianda Miner [facility] [id number] 00:00:00 00:00:00 [facility] 2022-10-20 2022-10-20 Uyen Miner [facility] [id number] 00:00:00 00:00:00 [facility] 2022-10-20 2022-10-20 Uyen Davis 1.2.840.1 [id number] 2100 [id number] Edy 00:00:00 00:00:[address] 3.430.2.7 Hospit a .3.052837 l .8 2022-10-19 2022-10-19 Office Sheri [facility] [id number] [id number] [facility] [address] 10:30:00 10:45:00 Visit [facility] 2022-10-19 2022-10-19 Outpatient SHERI [facility] [id number] SLE 10:33:52 10:33:52 [facility] 2022-10-19 2022-10-[address] [facility] [id number] SLE 00:00:00 00:00:00 [facility] 2022-10-14 2022-10-14 Office Younis, 1.2.840.1 [id number] 2099 [id number] Methodi 09:10:00 09:51:45 Visit Moustapha Stevens50.1.[address] 3.430.2.7 Hospit a .3.114823 l .8 2022-10-14 2022-10-14 Travel 1.2.840.1 1.2.283.679 4382 [id number] Methodi 00:00:00 00:00:[address] 3.430.2.7 0.2.7.3.698 Ho spita .3.407321 084.8 l .8 2022-10-08 2022-10-08 [facility] [id number] [facility] 00:00:00 00:00:00 [facility] 2022-10-08 2022-10-08 Orders Younis, 1.2.840.1 [id number] 2099 [id number] Methodi 00:00:00 00:00:00 Only Moustapha Stevens50.1.[address] 3.430.2.7 Hospit a .3.012109 l .8 2022-10-07 2022-10-07 Office Younis, 1.2.840.1 [id number] 2099 [id number] Methodi 11:10:00 12:11:21 Visit Moustapha A. 52524.1.[address] 3.430.2.7 Hospit a .3.988015 l .8 2022-10-07 2022-10-07 Outpatient [facility] [id number] 00:00:00 00:00:[address] 2022-10-07 2022-10-07 Travel 1.2.840.1 1.2.109.364 7318 [id number] Methodi 00:00:00 00:00:[address] 3.430.2.7 0.2.7.3.698 Ho spita .3.379451 084.8 l .8 2022-09-11 2022-09-11 Office Younis, 1.2.840.1 [id number] 2099 [id number] Methodi 14:50:00 16:06:05 Visit Moustapha Mckenzie 37866.1.[address] 3.430.2.7 Hospit a .3.067209 l .8 2022-09-11 2022-09-11 Travel 1.2.840.1 1.2.144.745 1211 [id number] Methodi 00:00:00 00:00:[address] 3.430.2.7 0.2.7.3.698 Ho spita .3.295601 084.8 l .8 2022-09-07 2022-09-07 Travel 1.2.840.1 1.2.067.807 6058 [id number] Methodi 00:00:00 00:00:[address] 3.430.2.7 0.2.7.3.698 Ho spita .3.576616 084.8 l .8 2022-08-19 2022-08-19 Travel 1.2.840.1 1.2.654.700 7843 [id number] Methodi 00:00:00 00:00:[address] 3.430.2.7 0.2.7.3.698 Ho spita .3.772891 084.8 l .8 2022-08-16 2022-08-16 Refill Sheri, [facility] [id number] [id number] 00:00:00 00:00:00 [facility] 2022-07-21 2022-07-21 Refill Sheri, [facility] [id number] [facility] 00:00:00 00:00:00 [facility] 2022-07-21 2022-07-21 Refill Iveth Aguayo 1.2.840.1 [id number] Method 00:00:00 00:00:[address] 3.430.2.7 Hospit a .3.107954 l .8 2022-07-20 2022-07-20 Refill Sheri, [facility] [id number] [id number] [facility] 00:00:00 00:00:00 [facility] 2022-07-17 2022-07-17 Refill Sheri, [facility] [id number] [id number] [facility] 00:00:00 00:00:00 [facility] 2022-07-14 2022-07-14 Refill Sheri, [facility] [id number] [id number] [facility] 00:00:00 00:00:00 [facility] 2022-06-16 2022-06-16 Refill Sheri, [facility] [id number] [id number] [facility] 00:00:00 00:00:00 [facility] 2022-05-20 2022-05-20 Refill Kristofer, [facility] [id number] [facility] 00:00:00 00:00:00 [facility] 2022-05-19 2022-05-19 Refill Sheri, [facility] [id number] [id number] [facility] 00:00:00 00:00:00 [facility] 2022-04-24 2022-04-24 Orders Kristofer, [facility] [id number] [facility] 00:00:00 00:00:00 Only [facility] 2022-04-17 2022-04-17 Refill Kristofer [facility] [id number] [facility] 00:00:00 00:00:00 [facility] 2022-04-17 2022-04-17 Refill Kristofer [facility] [id number] [facility] 00:00:00 00:00:00 [facility] 2022-04-16 2022-04-16 Refill Sheri, [facility] [id number] [id number] [facility] 00:00:00 00:00:00 [facility] 2022-04-09 2022-04-09 Telephone Sheri, [facility] [id number] [facility] 00:00:00 00:00:00 [facility] 2022-04-03 2022-04-03 [facility] [id number] 11:36:27 23:59:00 [facility] 2022-04-03 2022-04-03 Outpatient [facility] [id number] SLE 11:36:27 23:59:00 2022-04-03 2022-04-03 Office PIA Wade, [facility] [id number] 10:30:00 10:45:00 Visit [facility] 2022-04-03 2022-04-03 Outpatient SHERI [facility] 2045 [id number] SLE 10:29:07 10:29:07 [facility] 2022-04-03 2022-04-03 Orders Sanchez, [facility] [id number] 00:00:00 00:00:00 Only [facility] 2022-04-01 2022-04-01 Refill Sheri, [facility] [id number] [id number] 00:00:00 00:00:00 [facility] 2021-12-25 2021-12-25 Refill Sheri, [facility] [id number] 00:00:00 00:00:00 [facility] 2021-12-18 2021-12-18 Refill Sheri, [facility] [id number] 00:00:00 00:00:00 [facility] 2021-10-14 2021-10-14 Refill Sheri, [facility] [id number] 00:00:00 00:00:00 [facility] 2021-10-07 2021-10-07 Outpatient Deonte ROCKWELL [facility] [id number] Univers 11:10:00 10:46:20 PRITESH turk [facility] 2021-10-07 2021-10-07 Imm/Inj Nurse, Adc Pob Immunization [facility] 1.2.840.114 [id number] Univers 10:46:10 10:46:20 Visit Pritesh Rockwell 350.1.13 .10 [facility] 4.2.7.2.686 Edwar LIN [phone] Wi dical [address] 2021-09-29 2021-09-29 Refbrianda Miner, [facility] [id number] 00:00:00 00:00:00 Stuarttri Burgos [facility] 2021-09-28 2021-09-28 Refbrianda Wade, [facility] [id number] [id number] 00:00:00 00:00:00 [facility] 2021-07-17 2021-07-17 Refbrianda Wade, [facility] [id number] [id number] 00:00:00 00:00:00 [facility] 2021-07-15 2021-07-15 Uyen Wade, [facility] [id number] [id number] 00:00:00 00:00:00 [facility] 2021-07-09 2021-07-09 Uyen Wade, [facility] [id number] [id number] 00:00:00 00:00:00 [facility] 2021-06-21 2021-06-21 Uyen Wade [facility] [id number] [id number] 00:00:00 00:00:00 [facility] 2021-05-31 2021-06-01 Emergency [facility] 1.2.259.939 [id number] Univers 23:44:00 03:11:00 Aneta Burgos [place] 350.1.13.[facility] [id number] [facility] [address] 2021-05-20 2021-05-20 Travel 1.2.840.1 1.2.398.228 [id number] Method 00:00:00 00:00:[address] 3.430.2.7 0.2.7.3.698 spita .3.732464 084.8 l .8 2021-04-29 2021-04-29 Refill Sheri [facility] [id number] [facility] [address] 00:00:00 00:00:00 [facility] 2021-04-11 2021-04-15 [facility] [id number] 03:10:00 17:48:00 Encounter Keke Mckeon [facility] 2021-04-11 2021-04-11 Emergency ER [facility] Emergency [id number] SLE 03:01:00 03:01:00 2021-04-11 2021-04-11 Outpatient PIA WADE [facility] [id number] SLE 00:00:00 00:00:00 [facility] 2021-04-11 2021-04-11 Orders [facility] [id number] 00:00:00 00:00:00 [facility] 2021-04-11 2021-04-11 Travel [facility] [id number] [facility] 00:00:00 00:00:00 [facility] 2021-04-09 2021-04-09 Outpatient JESÚS, [facility] [id number] [place] 00:00:00 00:00:00 [address] 2021-04-09 2021-04-09 Travel 1.2.840.1 1.2.632.349 [id number] Methodi 00:00:00 00:00:[address] 3.430.2.7 0.2.7.3.698 Ho spita .3.505070 084.8 l .8 2021-04-03 2021-04-03 [facility] [id number] [id number] 00:00:00 00:00:00 [facility] 2021-04-02 2021-04-02 Office Elier, 1.2.840.1 [id number] Methodi 08:58:59 11:24:09 Visit Gavin Kay 90345.1.[address] 3.430.2.7 Hospit a .3.854056 l .8 2021-04-02 2021-04-02 Travel 1.2.840.1 1.2.169.072 [id number] Methodi 00:00:00 00:00:[address] 3.430.2.7 0.2.7.3.698 Ho spita .3.239599 084.8 l .8 2021-03-28 2021-03-28 [facility] [id number] [id number] 12:00:47 12:15:47 Visit [facility] 2021-03-28 2021-03-28 Outpatient PIA WAED [facility] [id number] [facility] 00:00:00 00:00:00 SINCERE 2021-03-27 2021-03-27 Refill Sheri, [facility] [id number] [id number] 00:00:00 00:00:00 [facility] 2021-03-12 2021-03-12 [facility] [id number] [id number] 00:00:00 00:00:00 [facility] 2021-03-04 2021-03-04 [facility] [id number] [id number] 00:00:00 00:00:00 [facility] 2021-01-31 2021-01-31 [facility] [id number] [id number] 00:00:00 00:00:00 [facility] 2021-01-28 2021-01-28 Outpatient Deonte TAVRAES [facility] [id number] Univers 10:10:00 10:10:00 [facility] 2020-12-31 2020-12-31 [facility] [id number] Univers 10:10:00 10:10:00 [facility] 2020-12-18 2020-12-18 Outpatient PIA WADE [facility] [id number] SLE 00:00:00 00:00:00 [facility] 2020-12-11 2020-12-11 Letter Pcp, [facility] 1.2.840.114 [id number] Univers 00:00:00 00:00:00 (Out) Patient Health 350.1.13.10 it y of [place] Not [place].2.[place] Professio [phone] Wi dical [address] Office Building One 2020-12-11 2020-12-11 Letter Pcp, [facility] 1.2.840.114 [id number] 00:00:00 00:00:00 (Out) Patient Health 350.1.13.10 Does Not [place] 4.2.7.2.686 Have A Professio [phone] [place] [address] Office [address] One 2020-12-09 2020-12-09 Telephone Cam, [facility] 1.2.786.250 [id number] Univers 00:00:00 00:00:00 Martita A Health 350.1.13.10 i ty of [place] 4.2.7.2.686 Elder as Professio [phone] [address] Office Building [facility] 2020-12-09 2020-12-09 Telephone Cam [facility] 1.2.889.579 [id number] 00:00:00 00:00:00 Martita A Health 350.1.13.10 [place] 4.2.7.2.686 Professio [phone] [place] [address] Office [address] One 2020-12-04 2020-12-04 Laboratory Lab, [facility] 1.2.840.114 [id number] 09:55:41 10:15:41 Only Fam Pob I Health 350.1.13.10 [place] 4.2.7.2.686 Professio [phone] [place] [address] Office Building One 2020-12-04 2020-12-04 Laboratory Lab, [facility] Fam Pob I [facility] 1.2. 840.114 [id number] Univers 09:55:41 10:15:41 Only Martita [facility] 350.1.13.10 ity of [place] 4.2.7.2.686 [place] as Professio [phone] [address] Office [facility] One 2020-12-04 2020-12-04 Outpatient R [facility] [id number] Univers 10:00:00 10:00:00 [facility] 2020-11-15 2020-11-15 Outpatient PIA WADE, [facility] [id number] SLE 00:00:00 00:00:00 [facility] 2020-08-30 2020-08-30 Outpatient R ANJELICA, [facility] [id number] Univers 11:15:00 11:15:00 VENITA [facility] 2020-08-30 2020-08-30 Envelope Stamping Machine Operator Poana, [facility] 1.2.840.114 [id number] 10:48:02 11:03:02 Visit Lab Main [place] 350.1.13.10 [place] 4.2.7.2.686 Professio [phone] [address] 2020-08-30 2020-08-30 Envelope Stamping Machine Operator Roddy, [facility] Lab Main [place] 1.2.8 40.114 [id number] [facility] 10:48:02 11:03:02 Visit Venita Dejesus Derrick 350.1.13.10 ity of [place]2.7.2.[place] [phone] [address] 2020-08-30 2020-08-30 Orders Doctor LAYLA 1.2.840.114 [id number] 00:00:00 00:00:00 Only Unassigned, ALEYDA 350.1.13.10 [facility] 4.2.7.2.686 [id number] [facility] 2020-08-30 2020-08-30 Orders Doctor LAYLA 1.2.840.114 [id number] [facility] 00:00:00 00:00:00 Only Unassigned, ALEYDA 350.1.13.10 ity of [place] [facility] 4.2.7.2.686 Elder as [phone] [address] 2020-08-27 2020-08-27 Outpatient R ANJELICA [facility] [id number] [facility] 14:15:00 14:15:00 VENITA turk [facility] 2020-08-27 2020-08-27 Envelope Stamping Machine Operator Roddy [facility] 1.2.840.114 [id number] 13:39:21 13:54:21 Visit Lab Main [place] 350.1.13.10 [place] 4.2.7.2.686 Professio [phone] [address] 2020-08-27 2020-08-27 Envelope Stamping Machine Operator Roddy [facility] Lab Main [facility] 1.2.8 40.114 [id number] [facility] 13:39:21 13:54:21 Visit Venita Dejesus [place] 350.1.13.10 ity of [place].2.[place] [phone] [address] 2020-08-22 2020-08-22 Envelope Stamping Machine Operator Roddy, [facility] 1.2.840.114 [id number] 15:26:34 15:41:34 Visit Lab Main [place] 350.1.13.10 [place] 4.2.7.2.686 Professio [phone] [address] 2020-08-22 2020-08-22 Envelope Stamping Machine Operator Roddy, [facility] Lab Main [facility] 1.2.8 40.114 [id number] Univers 15:26:34 15:41:34 Visit Anjelica Venita Meza 350.1.13.10 ity of [place].2.[place] [phone] [address] 2020-08-22 2020-08-22 [facility] [id number] [facility] 15:30:00 15:30:00 VENITA turk [facility] 2020-08-20 2020-08-20 Envelope Stamping Machine Operator Roddy, [facility] 1.2.840.114 [id number] 10:58:50 11:13:50 Visit Lab Main [place] 350.1.13.10 [place] 4.2.7.2.686 Professio [phone] [address] 2020-08-20 2020-08-20 Envelope Stamping Machine Operator Roddy, [facility] Lab Main [facility] 1.2.8 40.114 [id number] [facility] 10:58:50 11:13:50 Visit Venita Dejesus Derrick 350.1.13.10 ity of [place].2.[place] [phone] [address] 2020-08-20 2020-08-20 Outpatient [facility] [id number] Univers 11:00:00 11:00:00 VENITA turk [facility] 2020-08-20 2020-08-20 Orders Doctor RICH 1.2.840.114 [id number] Univers 00:00:00 00:00:00 Only UnassignedALEYDA 350.1.13.10 [facility] 4.2.7.2.686 Elder as [phone] [address] 2020-08-20 2020-08-20 Orders Doctor RICH 1.2.840.114 [id number] 00:00:00 00:00:00 Only Unassigned, ALEYDA 350.1.13.10 [place] [facility] 4.2.7.2.686 [id number] 009 2020-07-29 2020-07-29 Outpatient SHERI [facility] [id number] SLE 00:00:00 00:00:00 [facility] 2020-07-29 2020-07-29 Outpatient PIA WADE [facility] [id number] SLE 00:00:00 00:00:00 [facility] 2020-07-15 2020-07-15 Emergency ER [facility] Emergency [id number] SLE 14:40:00 14:40:00 2020-05-09 2020-05-09 [facility] 1.2.840.114 [id number] [facility] 07:32:53 09:40:00 Encounter Venita Meza 350.1.13.10 ity of bL [place] 4.2.7.2.686 [facility] Surgical [phone] Med [address] 2020-05-09 2020-05-09 [facility] 1.2.840.114 [id number] 07:32:53 09:40:00 Encounter Venita Meza 350.1.13.10 [place] 4.2.7.2.686 Surgical [phone] [place] [address] 2020-05-08 2020-05-08 Laboratory Only, [facility] Test [facility] 1.2.840. 114 [id number] [facility] 11:03:41 11:18:41 Only Venita Mares 350.1.1 3.10 ity of [place] 4.2.7.2.686 [facility] [place] [phone] [address] 2020-05-08 2020-05-08 Laboratory Only, [facility] 1.2.840.114 [id number] 11:03:41 11:18:41 Only Test Derrick 350.1.13.10 [place] 4.2.7.2.686 [place] [id number] [facility] 2020-05-08 2020-05-08 Outpatient [facility] [id number] Univers 10:15:00 10:15:00 VENITA turk [facility] 2020-04-25 2020-04-25 [facility] 1.2.840.114 [id number] Univers 07:13:00 09:44:00 Encounter Venita Derrick 350.1.13.10 ity of [place].2.[place] [phone] [address] 2020-04-25 2020-04-25 [facility] 1.2.840.114 [id number] 07:13:00 09:44:00 Encounter Venita [place] 350.1.13.10 [place] 4.2.7.2.686 Surgical [phone] [place] [address] 2020-04-25 2020-04-25 Orders Doctor LAYLA 1.2.840.114 [id number] Univers 00:00:00 00:00:00 Only Unassigned, ALEYDA 350.1.13.10 ity of [facility] 4.2.7.2.686 [place] as [phone] [address] 2020-04-25 2020-04-25 Orders Doctor RICH 1.2.840.114 [id number] 00:00:00 00:00:00 Only Unassigned, ALEYDA 350.1.13.10 [facility] 4.2.7.2.686 [id number] [facility] 2020-04-24 2020-04-24 Laboratory Only, [facility] Test [facility] 1.2.840. 114 [id number] Univers 15:22:54 15:37:54 Only Venita Mares [place] 350.1.1 3.10 ity of [place].2.[place] [phone] Wi dical [address] 2020-04-24 2020-04-24 Laboratory Only, [facility] 1.2.840.114 [id number] 15:22:54 15:37:54 Only Test Derrick 350.1.13.10 [place] 4.2.7.2.686 Professio [phone] [address] 2020-04-24 2020-04-24 Outpatient R [facility] [id number] Univers 15:30:00 15:30:[address] [facility] 2020-04-18 2020-04-18 Envelope Stamping Machine Operator Roddy, Josh Lab Main [facility] 1.2.8 40.114 [id number] Univers 16:47:22 17:02:22 Visit Venita Mares 350.1.1 3.10 [facility] 4.2.7.2.686 Edwar burgos Professio [phone] Wi dical [address] 2020-04-18 2020-04-18 Envelope Stamping Machine Operator Roddy [facility] 1.2.840.114 [id number] 16:47:22 17:02:22 Visit Lab Main Derrick 350.1.13.10 [place] 4.2.7.2.686 Professio [phone] [address] 2020-04-18 2020-04-18 Outpatient Deonte SUZAN [facility] [id number] Univers 17:00:00 17:00:00 VENITA oumou [facility] 2020-04-08 2020-04-08 Outpatient [facility] [id number] SLE 00:00:00 00:00:00 [id number] 2020-04-08 2020-04-08 Outpatient PIA WADE, [facility] 2034 [id number] SLE 00:00:00 00:00:00 [facility] 2020-04-08 2020-04-08 Outpatient [facility] [id number] SLE 00:00:00 00:00:00 Results Test Description Test Time Test Comments Results Result Comments Source HIGH SENSITIVITY TROPONIN I 2023-07-14 12:56:45 Test Item Value Reference Range Interpretation Comme nts HIGH SENSITIVITY TROPONIN I 8 pg/ml See_Comment [Automated message] The system (test code = 5267168) which generated this result transmitted ref erence range: <=17. The reference r yamileth was not used to interpret th is result as normal/abnormal . Claim Attorney ID - esauThe SECURITY ADVISOR STAT High Sensitivity Troponin-I results should be used in conjunction with other diagnostic information such as ECG, clinical observations and information, and patient symptoms to aid in the diagnosis of NV.MR LUMBAR SPINE WITHOUT IV [id number] 12:30:04 [facility] 1960 Sex: FMR LUMBAR SPINE WITHOUT IV CONTRASTINDICATION: Low back pain, no red flags, no prior managementCOMPARISON: NoneTECHNIQUE: Multiplanar, multisequence MR images of the lumbar spinewithout contrast. FINDINGS: For the purposes of this dictation, the 5 lowermost oakqgs-sxzayppurcmfq-porq vertebral bodies are labeled L1- L5.Alignment of the lumbar spine demonstrates straightening of the normallumbar lordosis.Mild to moderate spondylosis and facet arthropathy are present withinthe spine.Vertebral body height is maintained. Vertebral hemangioma in the T12 vertebral body. Mild STIR hyperintensity at the right L5-S1 level.No spinal cord signal abnormality identified.No acute findings in the paraspinal soft tissues.Evaluation of the individual levels demonstrates:L1/L2: No significant canal or foraminal narrowing.L2/L3: Symmetric disc bulge with moderate spinal canal stenosisL3/L4: No significant canal or foraminal narrowing.L4/L5: Symmetric disc bulge severe spinal canal stenosis and clumpingof the cauda equina nerve roots with moderate bilateral neural foraminalstenosisL5/S1: No significant canal or foraminal narrowing.IMPRESSION:1. Severe degenerative spinal canal stenosis at L4-L5 with clumping ofthe cauda equina nerve roots2. Moderate degenerative spinal canal stenosis at L2-L33. Moderate degenerative ne ural foraminal stenosis at the bilateralL4-L5 level4. Mild degenerative endplate edema at the right L5-S1 level.Electronically Signed By: Kate Ayoub07/14/2023 12:32 CDTWorkstation Name: [id number] BRAIN WITHOUT IV [id number] 12:08:28[facility] : 1960 Sex: FMRI Brain without contrastClinical History: Neuro deficit, acute, stroke suspectedStrokeTechnique: MRI ofthe brain utilizing axial T2, FLAIR, GRE, DWI;sagittal and coronal T1- weighted images.Comparisons: CT 07/13/2023Findings:There is no evidence of acute infarct or hemorrhage. There are smallchronic infarcts at the right frontal vertex and in the leftperirolandic region. There is mild periventricular and subcortical whitematter T2 hyperintensity, which is nonspecific but compatible withchronic microvascular ischemic change. There is mild sulcal prominenceloss without hydrocephalus, midline shift, or apparent mass effect.There are no extra-axial fluid collections. The craniocervical junctionis preserved. The major intracranial flow-voids appear patent. 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 Electronically Signed By: Petar Crowley07/14/2023 12:10 CDTWorkstation Name: [id number] 11:37:14 Test Item Value Reference Range Interpretation Comments POC-GLUCOSE METER 173 mg/dL 70-110 H : TESTED A T [facility] 6720 ([facility]) (test code = [facility] Deonte [facility], 1538) 21509: Claim Attorney/Techni kate ID = [id number] for Gracie Palumbo POCT-GLUCOSE [id number] 06:29:42 Test Item Value Reference Range Interpretation Comments POC-GLUCOSE METER 130 mg/dL 70-110 H : TESTED A T [facility] 6720 ([facility]) (test code = [facility], 1538) 59291: Claim Attorney/Techni kate ID = [id number] for NATHAN BECK CBC W/PLT COUNT & AUTO [id number] 04:10:27 Test Item Value Reference Range Interpretation Comments WHITE BLOOD CELL COUNT 12.1 K/ L 3.5-10.5 H (BEAKER) (test code = 775) RED BLOOD CELL COUNT 4.50 M/ L 3.93-5.22 (BEAKER) (test code = 761) HEMOGLOBIN (BEAKER) 12.7 GM/DL 11.2-15.7 (test code = 410) HEMATOCRIT (BEAKER) 38.9 % 34.1-44.9 (test code = 411) MEAN CORPUSCULAR 86 fL 79-95 VOLUME (BEAKER) (test code = 753) MEAN CORPUSCULAR 28.2 pg 25.6-32.2 HEMOGLOBIN (BEAKER) (test code = 751) MEAN CORPUSCULAR 32.6 GM/DL 32.2-35.5 HEMOGLOBIN CONC (BEAKER) (test code = 752) RED CELL DISTRIBUTION 15.1 % 11.7-14.4 H WIDTH (BEAKER) (test code = 412) PLATELET COUNT 217 K/CU MM 150-450 (BEAKER) (test code = 756) MEAN PLATELET VOLUME Unable to report due (BEAKER) (test code = to abn ormal Platelet 754) population distribution. NUCLEATED RED BLOOD 0 /100 WBC 0-0 CELLS (BEAKER) (test code = 413) NEUTROPHILS RELATIVE 62 % PERCENT (BEAKER) (test code = 429) LYMPHOCYTES RELATIVE 29 % PERCENT (BEAKER) (test code = 430) MONOCYTES RELATIVE 7 % PERCENT (BEAKER) (test code = 431) EOSINOPHILS RELATIVE 1 % PERCENT (BEAKER) (test code = 432) BASOPHILS RELATIVE 1 % PERCENT (BEAKER) (test code = 437) NEUTROPHILS ABSOLUTE 7.44 K/ L 1.56-6.13 H COUNT (BEAKER) (test code = 670) LYMPHOCYTES ABSOLUTE 3.54 K/ L 1.18-3.74 COUNT (BEAKER) (test code = 414) MONOCYTES ABSOLUTE 0.87 K/ L 0.24-0.36 H COUNT (BEAKER) (test code = 415) EOSINOPHILS ABSOLUTE 0.12 K/ L 0.04-0.36 COUNT (BEAKER) (test code = 416) BASOPHILS ABSOLUTE 0.06 K/ L 0.01-0.08 COUNT (BEAKER) (test code = 417) IMMATURE 0.50 % 0.00-1.00 GRANULOCYTES-RELATIVE PERCENT (BEAKER) (test code = 2801) BASIC METABOLIC [id number] 03:45:17 Test Item Value Reference Range Interpretation Comments SODIUM (BEAKER) 138 meq/L 136-145 (test code = 381) POTASSIUM 3.8 meq/L 3.5-5.1 Specimen slight ly (BEAKER) (test hemolyzed code = 379) CHLORIDE (BEAKER) 103 meq/L 98-107 (test code = 382) CO2 (BEAKER) 23 meq/L 22-29 (test code = 355) BLOOD UREA 18 mg/dL 7-21 NITROGEN (BEAKER) (test code = 354) CREATININE 1.52 mg/dL 0.57-1.25 H Specimen slight ly (BEAKER) (test hemolyzed code = 358) GLUCOSE RANDOM 130 mg/dL 70-105 H (BEAKER) (test code = 652) CALCIUM (BEAKER) 9.2 mg/dL 8.4-10.2 (test code = 697) EGFR (BEAKER) 38 Interpretatio n of eGFR (test code = [...] not appl icable for dialysis patien ts Claim Attorney ID - [id number] 03:45:16 Test Item Value Reference Range Interpretation Comments MAGNESIUM (BEAKER) 2.3 mg/dL 1.6-2.6 Specimen slightly (test code = 627) hemolyzed Claim Attorney ID - [id number] 03:45:16 Test Item Value Reference Range Interpretation Comments PHOSPHORUS (BEAKER) 3.1 mg/dL 2.3-4.7 Specimen slightly (test code = 604) hemolyzed Claim Attorney ID - esauPOCT-GLUCOSE [id number] 21:40:12 Test Item Value Reference Range Interpretation Comments POC-GLUCOSE METER 150 mg/dL 70-110 H : TESTED A T [facility] 6720 (BEAKER) (test code = [facility], 1538) 17055: Claim Attorney/Techni kate ID = [id number] for NATHAN BECK POCT-GLUCOSE [id number] 16:32:29 Test Item Value Reference Range Interpretation Comments POC-GLUCOSE METER 186 mg/dL 70-110 H : TESTED A T [facility] 6720 (BEAKER) (test code = [facility], 1538) 71170: Claim Attorney/Techni kate ID = [id number] for Korina Guadarrama [id number] 14:48:07 Test Item Value Reference Range Interpretation Comments RPR SCREEN (BEAKER) (test code = Nonreactive Nonreactive 420) VITAMIN [id number] 13:25:44 Test Item Value Reference Range Interpretation Comments VITAMIN B12 (BEAKER) (test code = 324 pg/mL 213-816 774) Claim Attorney ID - JSHEPATIC FUNCTION [id number] 12:59:33 Test Item Value Reference Range Interpretation Comments TOTAL PROTEIN (BEAKER) (test code = 7.9 gm/dL 6.0-8.3 770) ALBUMIN (BEAKER) (test code = 1145) 4.1 g/dL 3.5-5.0 BILIRUBIN TOTAL (BEAKER) (test code 0.9 mg/dL 0.2-1.2 = 377) BILIRUBIN DIRECT (BEAKER) (test 0.4 mg/dL 0.1-0.5 code = 706) ALKALINE PHOSPHATASE (BEAKER) (test 139 U/L 40-150 code = 346) AST (SGOT) (BEAKER) (test code = 28 U/L 5-34 353) ALT (SGPT) (BEAKER) (test code = 16 U/L 6-55 347) Claim Attorney ID - JSPOCT-GLUCOSE [id number] 12:46:59 Test Item Value Reference Range Interpretation Comments POC-GLUCOSE METER 210 mg/dL 70-110 H : TESTED A T [facility] 6720 (BEAKER) (test code = MENA Clemons [facility], 1538) [id number]: Claim Attorney/Techni kate ID = [id number] for Korina Guadarrama HEMOGLOBIN [id number] 12:27:56 Test Item Value Reference Range Interpretation Comments HEMOGLOBIN A1C 8.0 % See_Comment H [Automated m essage] ELECTROPHORESIS [...] 5.7- 6.4% indicates increased risk for diabetes (prediabetes)."Claim Attorney ID - ADMOperator ID - ADMLIPID [id number] 11:00:42 Test Item Value Reference Range Interpretation Comments TRIGLYCERIDES ([facility]) (test code = 153 mg/dL 540) CHOLESTEROL ([facility]) (test code = 198 mg/dL 631) HDL CHOLESTEROL ([employer] Guide[employer]) (test code 33 mg/dL = 976) LDL CHOLESTEROL CALCULATED ([facility]) 134 mg/dL (test code = 633) Triglyceride Reference Range: Low Risk <150 Borderline 150-199 High Risk 200- 499 Very High Risk >=500Cholesterol Reference Range: Low Risk <200 Borderline 200-239 High Risk >240HDL Cholesterol Reference Range: Low Risk >=60 High Risk <40LDL Cholesterol Reference Range: Optimal <100 Near Optimal 100-129 Borderline 130-159 High 160-189 Very High >=190 Claim Attorney ID - JSPT/[id number] 10:54:14 Test Item Value Reference Range Interpretation Comments PROTIME (DNA GuideAKER) (test 14.9 seconds 11.9-14.2 H code = 759) INR (BEAKER) (test 1.24 See_Comment [Automat ed code = 370) message] The sy stem which generated this result transmitted reference range : <=5.90. The reference range was not used to interpret this result as normal/abnormal . PARTIAL THROMBOPLASTIN 29.6 seconds 22.5-36.0 TIME (BEAKER) (test code = 760) RECOMMENDED COUMADIN/WARFARIN INR THERAPY RANGESSTANDARD DOSE: 2.0 - 3.0 Includes: PROPHYLAXIS for venous thrombosis, systemic embolization; TREATMENT for venous thrombosis and/or pulmonary embolus.HIGH RISK: Target INR is 2.5-3.5 for patients with mechanical heart valves.XR CHEST 1 VIEW PORTABLE / BEDSIDE 2023-07-13 10:44:20 [facility] 1960 Sex: FCLINICAL HISTORY: EMESISMEDICATION REACTION TECHNIQUE: 1 view of the chest.COMPARISON: 03/12/2023IMPRESSION:There is increased pulmonary vascular congestion with bilateral airspaceopacities. There is no significant pleural fluid. The cardiomediastinalsilhouette is magnified by technique.Electronically Signed By: Petar Crowley07/13/2023 10:46 CDTWorkstation Name: [id number] METER 2023-07-13 10:16:32 Test Item Value Reference Range Interpretation Comments POC-GLUCOSE METER 188 mg/dL 70-110 H : TESTED A T [facility] 6720 (RAQUEL) (test code = MENA Clemons [facility], 1538) [address]: Claim Attorney/Techni kate ID = [id number] for Ba ileoumou, Sushila TSH/FREE T4 IF [id number] 09:52:37 Test Item Value Reference Range Interpretation Comments THYROID STIMULATING HORMONE 4.539 uIU/mL 0.350-4.940 (RAQUEL) (test code = 772) Claim Attorney ID - JSHIGH SENSITIVITY TROPONIN [id number] 09:37:11 Test Item Value Reference Range Interpretation Comments HIGH SENSITIVITY 11 pg/ml See_Comment [Automated message] TROPONIN I (test code = The system which [id number]) generated this result transmitted ref erence range: <=17. Th e reference range was not used to int erpret this result as normal/abnormal . Claim Attorney ID - JSThe SECURITY ADVISOR STAT High Sensitivity Troponin-I results should be used in conjunctionwith other diagnostic information such as ECG, clinical observations and information, and patient symptoms to aid in the diagnosis of NV.BASIC METABOLIC [id number] 09:29:29 Test Item Value Reference Range Interpretation Comments SODIUM (BEAKER) 139 meq/L 136-145 (test code = 381) POTASSIUM 4.1 meq/L 3.5-5.1 (BEAKER) (test code = 379) CHLORIDE (BEAKER) 99 meq/L 98-107 (test code = 382) CO2 (BEAKER) 29 meq/L 22-29 (test code = 355) BLOOD UREA 22 mg/dL 7-21 H NITROGEN (BEAKER) (test code = 354) CREATININE 1.69 mg/dL 0.57-1.25 H (BEAKER) (test code = [...] not appl icable for dialysis patien ts Claim Attorney ID - JSCBC W/PLT COUNT & AUTO [id number] 09:12:04 Test Item Value Reference Range Interpretation Comments WHITE BLOOD CELL COUNT (BEAKER) 10.7 K/ L 3.5-10.5 H (test code = 775) RED BLOOD CELL COUNT (BEAKER) 4.77 M/ L 3.93-5.22 (test code = 761) HEMOGLOBIN (BEAKER) (test code = 13.6 GM/DL 11.2-15.7 410) HEMATOCRIT (BEAKER) (test code = 41.0 % 34.1-44.9 411) MEAN CORPUSCULAR VOLUME (BEAKER) 86 fL 79-95 (test code = 753) MEAN CORPUSCULAR HEMOGLOBIN 28.5 pg 25.6-32.2 (BEAKER) (test code = 751) MEAN CORPUSCULAR HEMOGLOBIN CONC 33.2 GM/DL 32.2-35.5 (BEAKER) (test code = 752) RED CELL DISTRIBUTION WIDTH 14.8 % 11.7-14.4 H (BEAKER) (test code = 412) PLATELET COUNT (BEAKER) (test 234 K/CU MM 150-450 code = 756) MEAN PLATELET VOLUME (BEAKER) 10.7 fL 9.4-12.3 (test code = 754) NUCLEATED RED BLOOD CELLS 0 /100 WBC 0-0 (BEAKER) (test code = 413) NEUTROPHILS RELATIVE PERCENT 74 % (BEAKER) (test code = 429) LYMPHOCYTES RELATIVE PERCENT 18 % (BEAKER) (test code = 430) MONOCYTES RELATIVE PERCENT 7 % (BEAKER) (test code = 431) EOSINOPHILS RELATIVE PERCENT 1 % (BEAKER) (test code = 432) BASOPHILS RELATIVE PERCENT 1 % (BEAKER) (test code = 437) NEUTROPHILS ABSOLUTE COUNT 7.90 K/ L 1.56-6.13 H (BEAKER) (test code = 670) LYMPHOCYTES ABSOLUTE COUNT 1.97 K/ L 1.18-3.74 (BEAKER) (test code = 414) MONOCYTES ABSOLUTE COUNT (BEAKER) 0.71 K/ L 0.24-0.36 H (test code = 415) EOSINOPHILS ABSOLUTE COUNT 0.05 K/ L 0.04-0.36 (BEAKER) (test code = 416) BASOPHILS ABSOLUTE COUNT (BEAKER) 0.06 K/ L 0.01-0.08 (test code = 417) IMMATURE GRANULOCYTES-RELATIVE 0.30 % 0.00-1.00 PERCENT (BEAKER) (test code = 2801) [facility] [id number] 08:31:11 [facility] 1960 Sex: FCTA BRAIN, CT BRAIN CEREBRAL PERFUSION ANALYSIS, CTA CAROTIDINDICATION: Acute nor deficitCOMPARISON: NoneTECHNIQUE: Rapid acquisition spiral images were obtained between the aortic archand the cranial vertex during intravenous contrast infusion toreconstruct axial images and angiographic 3D maximum intensityprojections (MIP) .Three dimensional reformatted images were created isidro dedicated workstation. Prec ontrast images of the brain were alsoobtained. Perfusion imaging technique:Arterial input function: Right MCAVenous outflow function: Straight sinusSite of normal perfusion: right anterior territoryStenosis evaluation reported in compliance with NASCET criteria.DOSE REDUCTION: Dose modulation, iterative reconstruction, and/orweight-based adjustment of the mA/kV was utilized to reduce theradiation dose to as low as reasonably achievable.FINDINGS:CTA BRAIN:Internal carotid arteries: Petrous, cavernousand supraclinoid portionspatent. Middle cerebral arteries: Patent to distal branches.Anterior cerebral arteries: Patent. Intact Acomm.Basilar system: Patent vertebrobasilar system.Posterior cerebral arteries:Patent beyond the quadrigeminal segments.Venous opacification: Major dural sinuses unremarkable for bolus timing.Additional findings: None.CTA NECK:Common carotid arteries: The common carotid arteries are normal in size.Retropharyngeal course of the distal common carotid arteries.Bifurcations: show No flow-limiting stenosis. Scattered atheroscleroticvascular calcifications.Cervical internal carotid arteries: No flow limiting stenosis.Retropharyngeal course of the proximal ICA cervical segments.Vertebral arteries: Codominant. No origin stenosis.Arch anatomy: Common origin of the innominate andleft common carotidarteries.CT PERFUSION PARAMETRIC MAPS: CBF: SymmetricMTT: SymmetricCBV: SymmetricTmax: SymmetricNonvascular findings:Osseous structures: No acute osseous abnormality. Intact calvarium andskull base.Cervical soft tissues: No adenopathy. Patent aerodigestive tract.Lung apices: No apical consolidation or pneumothorax.IMPRESSION:No acute vascular abnormality in the head and neck.Retropharyngeal course of the bilateral carotid arteries.Symmetric perfusion indices. The rCBF to Tmax misma tch volume is zero.Electronically Signed By: Kate Ayoub07/13/2023 08:33 CDTWorkstation Name: [id number] BRAIN CEREBRAL PERFUSION [id number] 08:31:11[facility] : 1960 Sex: FCTA BRAIN, CT BRAIN CEREBRAL PERFUSION ANALYSIS, CTA CAROTIDINDICATION: Acute nor deficitCOMPARISON: NoneTECHNIQUE: Rapid acquisition spiral images were obtained between the aortic archand the cranial vertex during intravenous contrast infusion toreconstruct axial images and angiographic 3D maximum intensityprojections (MIP) .Three dimensional reformatted images were created isidro dedicated workstation. Prec ontrast images of the brain were alsoobtained. Perfusion imaging technique:Arterial input function: Right MCAVenous outflow function: Straight sinusSite of normal perfusion: right anterior territoryStenosis evaluation reported in compliance with NASCET criteria.DOSE REDUCTION: Dose modulation, iterative reconstruction, and/orweight-based adjustment of the mA/kV was utilized to reduce theradiation dose to as low as reasonably achievable.FINDINGS:CTA BRAIN:Internal carotid arteries: Petrous, cavernousand supraclinoid portionspatent. Middle cerebral arteries: Patent to distal branches.Anterior cerebral arteries: Patent. Intact Acomm.Basilar system: Patent vertebrobasilar system.Posterior cerebral arteries:Patent beyond the quadrigeminal segments.Venous opacification: Major dural sinuses unremarkable for bolus timing.Additional findings: None.CTA NECK:Common carotid arteries: The common carotid arteries are normal in size.Retropharyngeal course of the distal common carotid arteries.Bifurcations: show No flow-limiting stenosis. Scattered atheroscleroticvascular calcifications.Cervical internal carotid arteries: No flow limiting stenosis.Retropharyngeal course of the proximal ICA cervical segments.Vertebral arteries: Codominant. No origin stenosis.Arch anatomy: Common origin of the innominate andleft common carotidarteries.CT PERFUSION PARAMETRIC MAPS: CBF: SymmetricMTT: SymmetricCBV: SymmetricTmax: SymmetricNonvascular findings:Osseous structures: No acute osseous abnormality. Intact calvarium andskull base.Cervical soft tissues: No adenopathy. Patent aerodigestive tract.Lung apices: No apical consolidation or pneumothorax.IMPRESSION:No acute vascular abnormality in the head and neck.Retropharyngeal course of the bilateral carotid arteries.Symmetric perfusion indices. The rCBF to Tmax misma tch volume is zero.Electronically Signed By: Kate Ayoub07/13/2023 08:33 CDTWorkstation Name: [id number] 08:31:11 [facility] : 1960 Sex: FCTA BRAIN, CT BRAIN CEREBRAL PERFUSION ANALYSIS, CTA CAROTIDINDICATION: Acute nor deficitCOMPARISON: NoneTECHNIQUE: Rapid acquisition spiral images were obtained between the aortic archand the cranial vertex during intravenous contrast infusion toreconstruct axial images and angiographic 3D maximum intensityprojections (MIP) .Three dimensional reformatted images were created isidro dedicated workstation. Prec ontrast images of the brain were alsoobtained. Perfusion imaging technique:Arterial input function: Right MCAVenous outflow function: Straight sinusSite of normal perfusion: right anterior territoryStenosis evaluation reported in compliance with NASCET criteria.DOSE REDUCTION: Dose modulation, iterative reconstruction, and/orweight-based adjustment of the mA/kV was utilized to reduce theradiation dose to as low as reasonably achievable.FINDINGS:CTA BRAIN:Internal carotid arteries: Petrous, cavernousand supraclinoid portionspatent. Middle cerebral arteries: Patent to distal branches.Anterior cerebral arteries: Patent. Intact Acomm.Basilar system: Patent vertebrobasilar system.Posterior cerebral arteries:Patent beyond the quadrigeminal segments.Venous opacification: Major dural sinuses unremarkable for bolus timing.Additional findings: None.CTA NECK:Common carotid arteries: The common carotid arteries are normal in size.Retropharyngeal course of the distal common carotid arteries.Bifurcations: show No flow-limiting stenosis. Scattered atheroscleroticvascular calcifications.Cervical internal carotid arteries: No flow limiting stenosis.Retropharyngeal course of the proximal ICA cervical segments.Vertebral arteries: Codominant. No origin stenosis.Arch anatomy: Common origin of the innominate andleft common carotidarteries.CT PERFUSION PARAMETRIC MAPS: CBF: SymmetricMTT: SymmetricCBV: SymmetricTmax: SymmetricNonvascular findings:Osseous structures: No acute osseous abnormality. Intact calvarium andskull base.Cervical soft tissues: No adenopathy. Patent aerodigestive tract.Lung apices: No apical consolidation or pneumothorax.IMPRESSION:No acute vascular abnormality in the head and neck.Retropharyngeal course of the bilateral carotid arteries.Symmetric perfusion indices. The rCBF to Tmax misma tch volume is zero.Electronically Signed By: Kate Ayoub07/13/2023 08:33 CDTWorkstation Name: [id number] BRAIN/STROKE TEST [id number] 08:09:52 [facility] : 1960 Sex: FCT BRAIN/STROKE TEST DESIGNCLINICAL INDICATION: Neuro deficit, acute, stroke suspectedCOMPARISON: NoneTECHNIQUE: Noncontrast axial CT imaging of the brain and skull. Coronaland sagittal reformats are provided.DOSE REDUCTION: Dose modulation, iterative reconstruction, and/orweight-based adjustment of the mA/kV was utilized to reduce theradiation dose to as low as reasonably achievable.FINDINGS:No intracranial hemorrhage, midline shift or mass effect. Midlinestructures are normally developed. Hypoattenuation within theperiventricular and subcortical white matter is present, nonspecific byimaging, however,statistically representing chronic microvascularchanges in this age group. Diffuse senescent parenchymal volume loss. A partially empty sella ispresent.No hydrocephalus.Atherosclerotic calcification ofthe intracranial internal carotid andvertebral arteries. Orbits are within normal limits. Prior bilateral lens surgery. No obstructive paranasal sinus disease.IMPRESSION:1. No acute intracranial findings2. Aspects: 10If there is persistent clinical concern for intracranial pathology, MRshould be considered for further characterization.The above findings were discussed with , who acknowledged thefindings, on 07/13/2023 at 802am.Electronically Signed By: Kate Ayoub07/13/2023 08:12 CDTWorkstation Name: [id number] METER 2023-07-13 07:37:38 Test Item Value Reference Range Interpretation Comments POC-GLUCOSE METER 196 mg/dL 70-110 H : TESTED A T [facility] 6720 (BEAKER) (test code = MENA Deonte [facility], 1538) [address]: Claim Attorney/Techni kate ID = [id number] for Jillian Cotto HIGH SENSITIVITY TROPONIN [id number] 06:43:04 Test Item Value Reference Range Interpretation Comments HIGH SENSITIVITY 9 pg/ml See_Comment [Automated message] TROPONIN I (test code = The system which [id number]) generated this result transmitted ref erence range: <=17. Th e reference range was not used to interpr et this result as normal/abnormal . Claim Attorney ID - EMThe SECURITY ADVISOR STAT High Sensitivity Troponin-I results should be used in conjunctionwith other diagnostic information such as ECG, clinical observations and information, and patient symptoms to aid in the diagnosis of NV.URINALYSIS W/ REFLEX URINE [id number] 06:37:44 Test Item Value Reference Range Interpretation Comments COLOR (BEAKER) (test code = 470) Light Yellow CLARITY (BEAKER) (test code = Clear 469) SPECIFIC GRAVITY UA (BEAKER) 1.014 1.001-1.035 (test code = 468) PH UA (BEAKER) (test code = 467) 7.0 5.0-8.0 PROTEIN UA (BEAKER) (test code = 30 mg/dL Negative A 464) GLUCOSE UA (BEAKER) (test code = >1000 mg/dL Negative A 365) KETONES UA (BEAKER) [...] 463) RBC UA (BEAKER) (test code = 0 /HPF 519) WBC UA (BEAKER) (test code = < /HPF 520) BACTERIA (BEAKER) (test code = Rare 517) SQUAMOUS EPITHELIAL (BEAKER) 4 /HPF (test code = 516) SOURCE(BEAKER) (test code = 2795) Claim Attorney ID - [auto]Claim Attorney ID - techCOMPREHENSIVE METABOLIC [id number] 06:37:15 Test Item Value Reference Range Interpretation Comments TOTAL PROTEIN 8.4 gm/dL 6.0-8.3 H (BEAKER) (test code = 770) ALBUMIN (BEAKER) 4.3 g/dL 3.5-5.0 (test code = 1145) ALKALINE 151 U/L 40-150 H PHOSPHATASE (BEAKER) (test code = 346) BILIRUBIN TOTAL 1.1 mg/dL 0.2-1.2 (BEAKER) (test code = 377) SODIUM (BEAKER) 139 meq/L 136-145 (test code = 381) POTASSIUM (BEAKER) 4.4 meq/L 3.5-5.1 (test code = 379) CHLORIDE (BEAKER) 98 meq/L 98-107 (test code = 382) CO2 (BEAKER) (test 26 meq/L 22-29 code = 355) BLOOD UREA 24 mg/dL 7-21 H NITROGEN (BEAKER) (test code = 354) CREATININE 1.70 mg/dL 0.57-1.25 H (BEAKER) (test code = 358) GLUCOSE RANDOM 197 mg/dL 70-105 H (BEAKER) (test code = 652) CALCIUM (BEAKER) 10.4 mg/dL 8.4-10.2 H (test code = 697) AST (SGOT) 25 U/L 5-34 (BEAKER) (test code = 353) ALT (SGPT) 16 U/L 6-55 (BEAKER) (test code = 347) EGFR (BEAKER) 33 Interpretatio n of eGFR [...] not appl icable for dialysis patien ts Claim Attorney ID - [id number] 06:37:15 Test Item Value Reference Range Interpretation Comments MAGNESIUM (BEAKER) (test code = 2.3 mg/dL 1.6-2.6 627) Claim Attorney ID - [id number] 06:37:15 Test Item Value Reference Range Interpretation Comments LIPASE (BEAKER) (test code = 749) 22 U/L 8-78 Claim Attorney ID - EMCBC W/PLT COUNT & AUTO [id number] 06:28:02 Test Item Value Reference Range Interpretation Comments WHITE BLOOD CELL COUNT (BEAKER) 10.9 K/ L 3.5-10.5 H (test code = 775) RED BLOOD CELL COUNT (BEAKER) 4.99 M/ L 3.93-5.22 (test code = 761) HEMOGLOBIN (BEAKER) (test code = 14.1 GM/DL 11.2-15.7 410) HEMATOCRIT (BEAKER) (test code = 43.3 % 34.1-44.9 411) MEAN CORPUSCULAR VOLUME (BEAKER) 87 fL 79-95 (test code = 753) MEAN CORPUSCULAR HEMOGLOBIN 28.3 pg 25.6-32.2 (BEAKER) (test code = 751) MEAN CORPUSCULAR HEMOGLOBIN CONC 32.6 GM/DL 32.2-35.5 (BEAKER) (test code = 752) RED CELL DISTRIBUTION WIDTH 15.0 % 11.7-14.4 H (BEAKER) (test code = 412) PLATELET COUNT (BEAKER) (test 232 K/CU MM 150-450 code = 756) MEAN PLATELET VOLUME (BEAKER) 11.2 fL 9.4-12.3 (test code = 754) NUCLEATED RED BLOOD CELLS 0 /100 WBC 0-0 (BEAKER) (test code = 413) NEUTROPHILS RELATIVE PERCENT 75 % (BEAKER) (test code = 429) LYMPHOCYTES RELATIVE PERCENT 20 % (BEAKER) (test code = 430) MONOCYTES RELATIVE PERCENT 4 % (BEAKER) (test code = 431) EOSINOPHILS RELATIVE PERCENT 1 % (BEAKER) (test code = 432) BASOPHILS RELATIVE PERCENT 0 % (BEAKER) (test code = 437) NEUTROPHILS ABSOLUTE COUNT 8.12 K/ L 1.56-6.13 H (BEAKER) (test code = 670) LYMPHOCYTES ABSOLUTE COUNT 2.12 K/ L 1.18-3.74 (BEAKER) (test code = 414) MONOCYTES ABSOLUTE COUNT (BEAKER) 0.48 K/ L 0.24-0.36 H (test code = 415) EOSINOPHILS ABSOLUTE COUNT 0.07 K/ L 0.04-0.36 (BEAKER) (test code = 416) BASOPHILS ABSOLUTE COUNT (BEAKER) 0.04 K/ L 0.01-0.08 (test code = 417) IMMATURE GRANULOCYTES-RELATIVE 0.20 % 0.00-1.00 PERCENT (BEAKER) (test code = 2801) POC ACTIVATED CLOTTING [id number] 11:48:30 Test Item Value Reference Range Interpretation Comments Activated Clotting Time 161 sec : 74 -137 seconds, (test code = 3184-9) Baselin e: TESTED AT [address], [address]: Claim Attorney/Techni kate ID = [id number] for Ba rba, Lexie [id number] 11:48:30 Test Item Value Reference Range Interpretation Comments ACTIVATED CLOTTING TIME 161 sec : 74 -137 seconds, (BEAKER) (test code = Zarii ne: TESTED AT 441) [address], [facility] 30: Claim Attorney/Techni kate ID = [id number] for Ba rba, Lexie POC-Glucose [id number] 11:11:46 Test Item Value Reference Range Interpretation Comments POC-Glucose Meter (test 165 mg/dL 70-110 H : No tified RN/MD: code = 1538) TESTED AT [place] [address]: Claim Attorney/Techni kate ID = [id number] for IRINEO CARDONA Lab Interpretation (test Abnormal code = 45030-8) [facility] [id number] 11:11:46 Test Item Value Reference Range Interpretation Comments POC-GLUCOSE METER 165 mg/dL 70-110 H : Notified RN/MD: (BEAKER) (test code = TESTED AT [place] [address]) [facility], [address]: Claim Attorney/Techni kate ID = [id number] for IRINEO ROONEY [id number] 10:16:09 Test Item Value Reference Range Interpretation Comments ACTIVATED CLOTTING TIME 305 sec : 74 -137 seconds, (BEAKER) (test code = Andrew ne: TESTED AT [facility]) [address], [facility] 30: Claim Attorney/Techni kate ID = [id number] for LOVE-GOLDBER G, CRISELDA DYGO-[id number] 09:54:59 Test Item Value Reference Range Interpretation Comments ACTIVATED CLOTTING TIME 317 sec : 74 -137 seconds, (BEAKER) (test code = Baseli ne: TESTED AT 441) [address], [address]: Claim Attorney/Techni kate ID = [id number] for LOVE-GOLDBER G, CRISELDA [id number] 09:54:58 Test Item Value Reference Range Interpretation Comments ACTIVATED CLOTTING TIME 287 sec : 74 -137 seconds, (BEAKER) (test code = Baseli ne: TESTED AT 441) [facility] [address] [place] [place], [address]: Claim Attorney/Techni kate ID = [id number] for CRISELDA [place] BASIC METABOLIC [id number] 07:12:47 Test Item Value Reference Range Interpretation [...] not appl icable for dialysis patien ts Claim Attorney ID - [id number] 07:09:36 Test Item Value Reference Range Interpretation Comments MAGNESIUM (BEAKER) 2.3 mg/dL 1.6-2.6 Specimen slightly (test code = 627) hemolyzed Claim Attorney ID - MMPROTHROMBIN TIME/[id number] 06:46:40 Test Item Value Reference Range Interpretation Comments PROTIME (BEAKER) (test code = 13.9 seconds 11.9-14.2 759) INR (BEAKER) (test code = 370) 1.13 <=5.90 RECOMMENDED COUMADIN/WARFARIN INR THERAPY RANGESSTANDARD DOSE: 2.0 - 3.0 Includes: PROPHYLAXIS for venous thrombosis, systemic embolization; TREATMENT for venous thrombosis and/or pulmonary embolus.HIGH RISK: Target INR is 2.5-3.5 for patients with mechanical heart valves.CBC W/PLT COUNT & AUTO [id number] 06:41:56 Test Item Value Reference Range Interpretation [...] PERCENT (BEAKER) (test code = 2801) POCT-GLUCOSE [id number] 07:43:28 Test Item Value Reference Range Interpretation Comments POC-GLUCOSE METER 185 mg/dL 70-110 H : TESTED A T [facility] 6720 (BEAKER) (test code [facility], = 1538) [address]: Claim Attorney/Techni kate ID = [id number] for Shameka (con tract), Janeen CALCIUM, [id number] 06:10:33 Test Item Value Reference Range Interpretation Comments CALCIUM IONIZED (BEAKER) (test 1.22 mmol/L 1.12-1.27 code = 698) PH, BLOOD (BEAKER) (test code = 7.35 1810) COMPREHENSIVE METABOLIC [id number] 04:23:46 Test Item Value Reference Range Interpretation [...] not appl icable for dialysis patien ts Claim Attorney ID Natalya BETHEA [id number] 04:22:53 Test Item Value Reference Range Interpretation Comments PHOSPHORUS (BEAKER) (test code = 4.5 mg/dL 2.3-4.7 604) Claim Attorney ID Natalya BETHEA [id number] 04:22:52 Test Item Value Reference Range Interpretation Comments MAGNESIUM (BEAKER) (test code = 2.2 mg/dL 1.6-2.6 627) Claim Attorney ID - NEEMA WCBC W/PLT COUNT & AUTO [id number] 04:01:13 Test Item Value Reference Range Interpretation [...] PERCENT (BEAKER) (test code = 2801) POCT-GLUCOSE [id number] 21:26:45 Test Item Value Reference Range Interpretation Comments POC-GLUCOSE METER 182 mg/dL 70-110 H : Notified RN/MD: (RAQUEL) (test code = TESTED AT [facility] 6720 1538) [facility], [address]: Claim Attorney/Techni kate ID = [id number] for Praneeth Lozada POCT-GLUCOSE [id number] 16:15:39 Test Item Value Reference Range Interpretation Comments POC-GLUCOSE METER 204 mg/dL 70-110 H : TESTED A T [facility] 6720 (BEAKER) (test code [facility], = 1538) [address]: Claim Attorney/Techni kate ID = [id number] for Shameka (con tract)Janeen POCT-GLUCOSE [id number] 11:55:41 Test Item Value Reference Range Interpretation Comments POC-GLUCOSE METER 250 mg/dL 70-110 H : TESTED A T [facility] 6720 (BEAKER) (test code [facility], = 1538) [address]: Claim Attorney/Techni kate ID = [id number] for Shameka (con tract)Janeen BASIC METABOLIC [id number] 08:57:34 Test Item Value Reference Range Interpretation [...] not appl icable for dialysis patien ts Claim Attorney ID - JSPOCT-GLUCOSE [id number] 07:43:39 Test Item Value Reference Range Interpretation Comments POC-GLUCOSE METER 213 mg/dL 70-110 H : [facility] (BEAKER) (test code [facility], = 1538) [address]: Claim Attorney/Techni kate ID = [id number] for Shameka (con tract)Janeen POCT-GLUCOSE [id number] 21:32:40 Test Item Value Reference Range Interpretation Comments POC-GLUCOSE METER 169 mg/dL 70-110 H : [facility] 67[facility] (BEAKER) (test code = [facility], 1538) [address]: Claim Attorney/Techni kate ID = [id number] for AVA SORENSON POCT-GLUCOSE [id number] 17:00:53 Test Item Value Reference Range Interpretation Comments POC-GLUCOSE METER 251 mg/dL 70-110 H : Notified RN/MD: (RAQUEL) (test code = TESTED AT [place] [address] 1538) [facility], [address]: Claim Attorney/Techni kate ID = [id number] for WHITLEY COFFEY POCT-GLUCOSE [id number] 13:14:46 Test Item Value Reference Range Interpretation Comments POC-GLUCOSE METER 310 mg/dL 70-110 H : Notified RN/MD: (RAQUEL) (test code = TESTED AT [place] [id number] 1538) [facility], [address]: Claim Attorney/Techni kate ID = [id number] for WHITLEY COFFEY BASIC METABOLIC [id number] 12:20:09 Test Item Value Reference Range Interpretation [...] 358) GLUCOSE RANDOM 155 mg/dL 70-105 H ([facility] (test code = 652) CALCIUM (RAQUEL) 9.8 mg/dL 8.4-10.2 (test code = 697) EGFR ([facility] 21 Interpretatio n of eGFR (test code [...] not appl icable for dialysis patien ts Claim Attorney ID - [id number] 12:18:19 Test Item Value Reference Range Interpretation Comments MAGNESIUM (RAQUEL) 2.2 mg/dL 1.6-2.6 Specimen slightly (test code = 627) hemolyzed Claim Attorney ID - EDPOCT-GLUCOSE [id number] 07:38:30 Test Item Value Reference Range Interpretation Comments POC-GLUCOSE METER 171 mg/dL 70-110 H : Notified RN/MD: ([facility]) (test code = TESTED AT [facility] 67 1537) [facility], [address]: Claim Attorney/Techni kate ID = [id number] for WHITLEY COFFEY POCT-GLUCOSE [id number] 00:05:24 Test Item Value Reference Range Interpretation Comments POC-GLUCOSE METER 203 mg/dL 70-110 H : [facility] ([facility]) (test code [facility], = 1538) [address]: Claim Attorney/Techni kate ID = [id number] for Shameka (con tract)Janeen POCT-GLUCOSE [id number] 21:28:52 Test Item Value Reference Range Interpretation Comments POC-GLUCOSE METER 192 mg/dL 70-110 H : [facility] 67[facility] ([facility]) (test code = [facility], 153) [address]: Claim Attorney/Techni kate ID = [id number] for Malinda Haile POCT-GLUCOSE [id number] 13:28:39 Test Item Value Reference Range Interpretation Comments POC-GLUCOSE METER 214 mg/dL 70-110 H : TESTED A T [facility] 6720 (BEAKER) (test code = [facility], 1538) [address]: Claim Attorney/Techni kate ID = [id number] for Maia Jean POCT-GLUCOSE [id number] 07:48:12 Test Item Value Reference Range Interpretation Comments POC-GLUCOSE METER 146 mg/dL 70-110 H : TESTED A T [facility] 6720 (BEAKER) (test code = [facility], 1538) [address]: Claim Attorney/Techni kate ID = [id number] for Robins rellmadeline COMPREHENSIVE METABOLIC [id number] 05:53:24 Test Item Value Reference Range Interpretation [...] eGFR (test code = 1092) mL/min/1.73 values S tage Description sq m Result G1 Jade l [...] not appl icable for dialysis patien ts Claim Attorney ID - [id number] 05:52:38 Test Item Value Reference Range Interpretation Comments PHOSPHORUS (BEAKER) (test code = 4.3 mg/dL 2.3-4.7 604) Claim Attorney ID - [id number] 05:52:37 Test Item Value Reference Range Interpretation Comments MAGNESIUM (BEAKER) (test code = 2.3 mg/dL 1.6-2.6 627) Claim Attorney ID - ADMINCBC W/PLT COUNT & AUTO [id number] 05:25:03 Test Item Value Reference Range Interpretation [...] PERCENT (BEAKER) (test code = 2801) CALCIUM, [id number] 05:20:09 Test Item Value Reference Range Interpretation Comments CALCIUM IONIZED (BEAKER) (test 1.11 mmol/L 1.12-1.27 L code = 698) PH, BLOOD (BEAKER) (test code = 7.42 1810) POCT-GLUCOSE [id number] 22:04:28 Test Item Value Reference Range Interpretation Comments POC-GLUCOSE METER 135 mg/dL 70-110 H : TESTED A T [facility] 6720 (BEAKER) (test code = [facility], 1538) [address]: Claim Attorney/Techni kate ID = [id number] for ELIZABETH THOMAS GARCIA POCT-GLUCOSE [id number] 17:36:31 Test Item Value Reference Range Interpretation Comments POC-GLUCOSE METER 210 mg/dL 70-110 H : TESTED A T [facility] 6720 (BEAKER) (test code [facility], = 1538) [address]: Claim Attorney/Techni kate ID = [id number] for Cuong (contract), LaT onya BASIC METABOLIC [id number] 16:14:58 Test Item Value Reference Range Interpretation [...] not appl icable for dialysis patien ts Claim Attorney ID - MARCOPOCT-GLUCOSE [id number] 11:27:59 Test Item Value Reference Range Interpretation Comments POC-GLUCOSE METER 216 mg/dL 70-110 H : TESTED A T [facility] 6720 (BEAKER) (test code [facility], = 1538) [address]: Claim Attorney/Techni kate ID = [id number] for Cuong (contract), LaT onya POCT-GLUCOSE [id number] 08:50:50 Test Item Value Reference Range Interpretation Comments POC-GLUCOSE METER 192 mg/dL 70-110 H : TESTED A T [facility] 6720 (BEAKER) (test code = MENA Clemons [facility], 1538) [address]: Claim Attorney/Techni kate ID = [id number] for An Morales COMPREHENSIVE METABOLIC [id number] 04:24:05 Test Item Value Reference Range Interpretation [...] not appl icable for dialysis patien ts Claim Attorney ID - [id number] 04:22:34 Test Item Value Reference Range Interpretation Comments PHOSPHORUS (BEAKER) (test code = 4.1 mg/dL 2.3-4.7 604) Claim Attorney ID - [id number] 04:22:33 Test Item Value Reference Range Interpretation Comments MAGNESIUM (BEAKER) (test code = 2.2 mg/dL 1.6-2.6 627) Claim Attorney ID - MARCOCBC W/PLT COUNT & AUTO [id number] 04:07:09 Test Item Value Reference Range Interpretation [...] PERCENT (BEAKER) (test code = 2801) CALCIUM, [id number] 03:52:07 Test Item Value Reference Range Interpretation Comments CALCIUM IONIZED (BEAKER) (test 1.09 mmol/L 1.12-1.27 L code = 698) PH, BLOOD (BEAKER) (test code = 7.43 1810) POCT-GLUCOSE [id number] 21:58:00 Test Item Value Reference Range Interpretation Comments POC-GLUCOSE METER 236 mg/dL 70-110 H : TESTED A T [facility] 6720 (BEAKER) (test code = [place], 1538) [address]: Claim Attorney/Techni kate ID = [id number] for THOMAS JOHNSON RA BASIC METABOLIC [id number] 18:31:04 Test Item Value Reference Range Interpretation [...] (test code = 697) EGFR (BEAKER) 22 Interpretatio n of eGFR [...] not appl icable for dialysis patien ts Claim Attorney ID - ADMINPOCT-GLUCOSE [id number] 16:12:40 Test Item Value Reference Range Interpretation Comments POC-GLUCOSE METER 191 mg/dL 70-110 H : TESTED A T [facility] 6720 (BEAKER) (test code [facility], = 1538) [address]: Claim Attorney/Techni kate ID = [id number] for uCong (contract), LaT onya POCT-GLUCOSE [id number] 11:48:50 Test Item Value Reference Range Interpretation Comments POC-GLUCOSE METER 175 mg/dL 70-110 H : TESTED A T [facility] 6720 (BEAKER) (test code [facility], = 1538) [address]: Claim Attorney/Techni kate ID = [id number] for Cuong (contract), LaT onya POCT-GLUCOSE [id number] 07:41:46 Test Item Value Reference Range Interpretation Comments POC-GLUCOSE METER 159 mg/dL 70-110 H : TESTED A T [facility] 6720 (BEAKER) (test code [facility], = 1538) [address]: Claim Attorney/Techni kate ID = [id number] for Cuong (contract), LaT onya COMPREHENSIVE METABOLIC [id number] 04:27:57 Test Item Value Reference Range Interpretation [...] not appl icable for dialysis patien ts Claim Attorney ID - [id number] 04:27:08 Test Item Value Reference Range Interpretation Comments MAGNESIUM (BEAKER) 2.2 mg/dL 1.6-2.6 Specimen slightly (test code = 627) hemolyzed Claim Attorney ID - [id number] 04:27:08 Test Item Value Reference Range Interpretation Comments PHOSPHORUS (BEAKER) 3.9 mg/dL 2.3-4.7 Specimen slightly (test code = 604) hemolyzed Claim Attorney ID - MARCOCALCIUM, [id number] 04:13:07 Test Item Value Reference Range Interpretation Comments CALCIUM IONIZED (BEAKER) (test 1.15 mmol/L 1.12-1.27 code = 698) PH, BLOOD (BEAKER) (test code = 7.41 1810) CBC W/PLT COUNT & AUTO [id number] 04:06:02 Test Item Value Reference Range Interpretation [...] PERCENT (BEAKER) (test code = 2801) POCT-GLUCOSE [id number] 21:38:51 Test Item Value Reference Range Interpretation Comments POC-GLUCOSE METER 162 mg/dL 70-110 H : TESTED A T [facility] 6720 (BEAKER) (test code = [place], 1538) [address]: Claim Attorney/Techni kate ID = [id number] for TANGELA Kitchen BASIC METABOLIC [id number] 17:32:44 Test Item Value Reference Range Interpretation [...] not appl icable for dialysis patien ts Claim Attorney ID - BSPOCT-GLUCOSE [id number] 16:47:27 Test Item Value Reference Range Interpretation Comments POC-GLUCOSE METER 200 mg/dL 70-110 H : Notified RN/MD: (RAQUEL) (test code = TESTED AT [place] [id number] 1538) [facility], [address]: Claim Attorney/Techni kate ID = [id number] for AN WHITLEY SILVA POCT-GLUCOSE [id number] 12:07:51 Test Item Value Reference Range Interpretation Comments POC-GLUCOSE METER 267 mg/dL 70-110 H : Notified RN/MD: (RAQUEL) (test code = TESTED AT [place] [id number] 1538) [facility], [address]: Claim Attorney/Techni kate ID = [id number] for AN WHITLEY SILVA POCT-GLUCOSE [id number] 08:38:05 Test Item Value Reference Range Interpretation Comments POC-GLUCOSE METER 192 mg/dL 70-110 H : TESTED A T [facility] 6720 ([facility]) (test code = MENA [place] [facility], 1538) [address]: Claim Attorney/Techni kate ID = [id number] for AN WHITLEY SILVA COMPREHENSIVE METABOLIC [id number] 06:53:24 Test Item Value Reference Range Interpretation [...] not appl icable for dialysis patien ts Claim Attorney ID - [id number] 06:51:05 Test Item Value Reference Range Interpretation Comments MAGNESIUM (BEAKER) (test code = 2.1 mg/dL 1.6-2.6 627) Claim Attorney ID - mmBLOOD GAS, [id number] 06:27:09 Test Item Value Reference Range Interpretation [...] (BEAKER) (test code = 1819) 21.0 CALCIUM, [id number] 06:25:33 Test Item Value Reference Range Interpretation Comments CALCIUM IONIZED (BEAKER) (test 1.15 mmol/L 1.12-1.27 code = 698) PH, BLOOD (BEAKER) (test code = 7.40 1810) CBC W/PLT COUNT & AUTO [id number] 06:22:42 Test Item Value Reference Range Interpretation [...] PERCENT (BEAKER) (test code = 2801) POCT-GLUCOSE [id number] 21:10:40 Test Item Value Reference Range Interpretation Comments POC-GLUCOSE METER 218 mg/dL 70-110 H : TESTED A T [facility] 6720 ([facility]) (test code = [facility] [place] [facility], 1538) [address]: Claim Attorney/Techni kate ID = [id number] for Fidelina TANGELA POCT-GLUCOSE [id number] 17:55:05 Test Item Value Reference Range Interpretation Comments POC-GLUCOSE METER 243 mg/dL 70-110 H : Notified RN/MD: ([facility]) (test code = TESTED AT [facility] 6720 1538) [facility], [address]: Claim Attorney/Techni kate ID = [id number] for WHITLEY COFFEY BASIC METABOLIC [id number] 17:06:19 Test Item Value Reference Range Interpretation [...] not appl icable for dialysis patien ts Claim Attorney ID - BSPOCT-GLUCOSE [id number] 13:06:11 Test Item Value Reference Range Interpretation Comments POC-GLUCOSE METER 176 mg/dL 70-110 H : Notified RN/MD: (RAQUEL) (test code = TESTED AT [place] [address]) [facility], [address]: Claim Attorney/Techni kate ID = [id number] for AN WHITLEY SILVA POCT-GLUCOSE [id number] 09:02:49 Test Item Value Reference Range Interpretation Comments POC-GLUCOSE METER 178 mg/dL 70-110 H : Notified RN/MD: (RAQUEL) (test code = TESTED AT [place] [address]) [facility], [address]: Claim Attorney/Techni kate ID = [id number] for AN WHITLEY SILVA COMPREHENSIVE METABOLIC [id number] 06:47:17 Test Item Value Reference Range Interpretation Comments TOTAL PROTEIN 7.0 gm/dL 6.0-8.3 (BEAKER) (test code = 770) [...] not appl icable for dialysis patien ts Claim Attorney ID - [id number] 06:33:23 Test Item Value Reference Range Interpretation Comments MAGNESIUM (BEAKER) (test code = 2.1 mg/dL 1.6-2.6 627) Claim Attorney ID - [id number] 06:33:23 Test Item Value Reference Range Interpretation Comments PHOSPHORUS (BEAKER) (test code = 3.7 mg/dL 2.3-4.7 604) Claim Attorney ID - mmCBC W/PLT COUNT & AUTO [id number] 06:11:49 Test Item Value Reference Range Interpretation [...] PERCENT (BEAKER) (test code = 2801) CALCIUM, [id number] 06:10:48 Test Item Value Reference Range Interpretation Comments CALCIUM IONIZED (BEAKER) (test 1.13 mmol/L 1.12-1.27 code = 698) PH, BLOOD (BEAKER) (test code = 7.40 1810) POCT-GLUCOSE [id number] 22:03:13 Test Item Value Reference Range Interpretation Comments POC-GLUCOSE METER 181 mg/dL 70-110 H : TESTED P[place] T [facility] 6720 (BEAKER) (test code = [place], 1538) [address]: Claim Attorney/Techni kate ID = [id number] for THOMAS JOHNSON RA Protein, random [id number] 19:55:44 Test Item Value Reference Range Interpretation Comments Protein, Urine (test code = 0-14 2888-6) ANTHONY (test code = ANTHONY) Claim Attorney ID - FSE Lab Interpretation (test Normal code = 97510-2) [facility] [id number] 19:55:44 Test Item Value Reference Range Interpretation Comments PROTEIN, URINE (BEAKER) (test code = < mg/dL 0-14 1569) Claim Attorney ID - FSECreatinine, random [id number] 19:55:00 Test Item Value Reference Range Interpretation Comments Creatinine, Ur 28.5 mg/dL (test code = 2161-8) ANTHONY (test code = Reference Range: No ANTHONY) NormalsOperator ID - FSE [facility]AT[facility], RANDOM [id number] 19:55:00 Test Item Value Reference Range Interpretation Comments CREATININE URINE (BEAKER) (test 28.5 mg/dL code = 375) Reference Range: No NormalsOperator ID - FSEBASIC METABOLIC [id number] 17:46:25 Test Item Value Reference Range Interpretation [...] mg/dL 8.4-10.2 (test code = 697) EGFR ([facility]) 29 Interpretatio n of eGFR (test code [...] not appl icable for dialysis patien ts Claim Attorney ID - MARIOPOCT-GLUCOSE [id number] 16:40:50 Test Item Value Reference Range Interpretation Comments POC-GLUCOSE METER 201 mg/dL 70-110 H : Notified RN/MD: (RAQUEL) (test code = TESTED AT [place] [address]) [facility], [address]: Claim Attorney/Techni kate ID = [id number] for AN WHITLEY SILVA POCT-GLUCOSE [id number] 12:31:29 Test Item Value Reference Range Interpretation Comments POC-GLUCOSE METER 203 mg/dL 70-110 H : Notified RN/MD: (RAQUEL) (test code = TESTED AT [place] [address]) [facility], [address]: Claim Attorney/Techni kate ID = [id number] for AN WHITLEY SILVA Urinalysis w/[id number] 10:16:57 Test Item Value Reference Range Interpretation Comments Color, UA (test code Colorless = 5778-6) Clarity, UA (test Clear code = 5767-9) Specific [place], UA 1.007 1.001-1.035 (test code = 5811-5) pH, UA (test code = 6.5 5.0-8.0 5803-2) Protein, UA (test Negative Negative code = 02712-0) Glucose, UA (test 200 mg/dL Negative A code = 365) Ketones, UA (test Negative Negative code = 2514-8) Bilirubin, UA (test Negative Negative code = 43618-1) Blood, UA (test code Negative Negative = 29157-6) Nitrite, UA (test Negative Negative code = 5802-4) Leukocytes, UA (test Negative Negative code = 5799-2) Urobilinogen, UA 0.2 0.2-1.0 (test code = 01220-3) RBC, UA (test code = 1 See_Comment [Autom ated 28630-2) message] The system which generated this result transmitted reference range : /HPF. The reference range was not used to interpret this result as normal/abnormal . WBC, UA (test code = 0 See_Comment [Autom ated 5821-4) message] The system which generated this result transmitted reference range : /HPF. The reference range was not used to interpret this result as normal/abnormal . Bacteria, UA (test Rare code = 06626-2) Squam Epithel, UA 2 See_Comment [Automate d (test code = 76753-9) messag e] The system which generated this result transmitted reference range : /HPF. The reference range was not used to interpret this result as normal/abnormal . Hyaline Casts, UA 1 See_Comment [Automate d (test code = 77612-9) messag e] The system which generated this result transmitted reference range : /LPF. The reference range was not used to interpret this result as normal/abnormal . Specimen Source (test Urine, Clean code = 2795) Catch ANTHONY (test code = ANTHONY) Claim Attorney ID - [auto]Claim Attorney ID - tech Lab Interpretation Abnormal (test code = 88747-1) [facility]/ [id number] 10:16:57 Test Item Value Reference Range Interpretation [...] (test code Urine, Clean Catch = 2795) Claim Attorney ID - [auto]Claim Attorney ID - techPOCT-GLUCOSE [id number] 07:35:20 Test Item Value Reference Range Interpretation Comments POC-GLUCOSE METER 155 mg/dL 70-110 H : Notified RN/MD: (BEAKER) (test code = TESTED AT [facility] 9437 2908) [facility], [address]: Claim Attorney/Techni kate ID = [id number] for AN WHITLYE SILVA BASIC METABOLIC [id number] 07:05:33 Test Item Value Reference Range Interpretation [...] not appl icable for dialysis patien ts Claim Attorney ID - MARIOPOCT-GLUCOSE [id number] 21:48:45 Test Item Value Reference Range Interpretation Comments POC-GLUCOSE METER 155 mg/dL 70-110 H : TESTED A T [facility] 6720 (BEAKER) (test code = [facility] [place] [facility], 1538) [address]: Claim Attorney/Techni kate ID = [id number] for TANGELA Kitchen POCT-GLUCOSE [id number] 17:20:40 Test Item Value Reference Range Interpretation Comments POC-GLUCOSE METER 178 mg/dL 70-110 H : TESTED A T [facility] 6720 (BEAKER) (test code = [facility] [place] [facility], 1538) [address]: Claim Attorney/Techni kate ID = [id number] for Bobbi Lozada BASIC METABOLIC [id number] 17:01:44 Test Item Value Reference Range Interpretation [...] not appl icable for dialysis patien ts Claim Attorney ID - RAMILA GPOCT-GLUCOSE [id number] 11:41:25 Test Item Value Reference Range Interpretation Comments POC-GLUCOSE METER 181 mg/dL 70-110 H : TESTED A T [facility] 6720 (BEAKER) (test code = [facility] [employer] [facility], 1538) [address]: Claim Attorney/Techni kate ID = [id number] for Bobbi Lozada POCT-GLUCOSE [id number] 07:47:34 Test Item Value Reference Range Interpretation Comments POC-GLUCOSE METER 175 mg/dL 70-110 H : TESTED A T [facility] 6720 (BEAKER) (test code = [employer] [facility], 1538) [address]: Claim Attorney/Techni kate ID = [id number] for Bobbi Lozada BASIC METABOLIC [id number] 05:34:08 Test Item Value Reference Range Interpretation [...] not appl icable for dialysis patien ts Claim Attorney ID - RAMILA [id number] 05:34:08 Test Item Value Reference Range Interpretation Comments MAGNESIUM (BEAKER) (test code = 2.1 mg/dL 1.6-2.6 627) Claim Attorney ID - RAMILA GCBC (HEMOGRAM ONLY)2023-03-21 04:58:49 [...] 0-0 (BEAKER) (test code = 413) POCT-GLUCOSE [id number] 22:06:46 Test Item Value Reference Range Interpretation Comments POC-GLUCOSE METER 195 mg/dL 70-110 H : TESTED A T [facility] 6720 (BEAKER) (test code = MENA [place] [facility], 1538) [address]: Claim Attorney/Techni kate ID = [id number] for SUSU OROURKE BASIC METABOLIC [id number] 17:42:41 Test Item Value Reference Range Interpretation [...] not appl icable for dialysis patien ts Claim Attorney ID - JUDYPOCT-GLUCOSE [id number] 16:13:27 Test Item Value Reference Range Interpretation Comments POC-GLUCOSE METER 193 mg/dL 70-110 H : TESTED A T [facility] 6720 (BEAKER) (test code = MENA [place] [facility], 153) [address]: Claim Attorney/Techni kate ID = [id number] for Bobbi Lozada POCT-GLUCOSE [id number] 11:56:21 Test Item Value Reference Range Interpretation Comments POC-GLUCOSE METER 175 mg/dL 70-110 H : TESTED A T [facility] 6720 (BEAKER) (test code = [place], 1538) [address]: Claim Attorney/Techni kate ID = [id number] for Bobbi Lozada POCT-GLUCOSE [id number] 08:03:43 Test Item Value Reference Range Interpretation Comments POC-GLUCOSE METER 148 mg/dL 70-110 H : TESTED A T [facility] 6720 (BEAKER) (test code = MENA Clemons [facility], 1538) [address]: Claim Attorney/Techni kate ID = [id number] for Bobbi Lozada BASIC METABOLIC [id number] 06:26:05 Test Item Value Reference Range Interpretation [...] not appl icable for dialysis patien ts Claim Attorney ID - [id number] 06:10:39 Test Item Value Reference Range Interpretation Comments MAGNESIUM (BEAKER) (test code = 2.1 mg/dL 1.6-2.6 627) Claim Attorney ID - ADMINPOCT-GLUCOSE [id number] 23:53:20 Test Item Value Reference Range Interpretation Comments POC-GLUCOSE METER 178 mg/dL 70-110 H : TESTED A T [facility] 6720 (BEAKER) (test code = MENA [place] [facility], 1538) [address]: Claim Attorney/Techni kate ID = [id number] for TANGELA Kitchen BASIC METABOLIC [id number] 16:49:22 Test Item Value Reference Range Interpretation [...] not appl icable for dialysis patien ts Claim Attorney ID - JSPOCT-GLUCOSE [id number] 11:50:19 Test Item Value Reference Range Interpretation Comments POC-GLUCOSE METER 168 mg/dL 70-110 H : TESTED A T [facility] 6720 (BEAKER) (test code [facility], = 1538) [address]: Claim Attorney/Techni kate ID = [id number] for Cuong (contract), LaT onya Arterial doppler legs [id number] 07:50:31Ejection FractionSLEH ECHO HEARTLAB MKCKESSON CPACSCHI [facility] [id number] 07:36:28 Test Item Value Reference Range Interpretation Comments POC-GLUCOSE METER 124 mg/dL 70-110 H : [facility] (BEAKER) (test code [facility], = 1538) [address]: Claim Attorney/Techni kate ID = [id number] for Cuong (contract), LaT onya BASIC METABOLIC [id number] 05:07:47 Test Item Value Reference Range Interpretation [...] (test code = 697) EGFR (BEAKER) 31 Interpretati on of eGFR (test code = mL/min/1.73 values Stage De scription 1092) sq m Result G1 Jade l or high >=90 G2 Mildly decreased 60-89 G3a Mildl y to moderately 45- 59 G3b Moderately to s everely 30-44 G4 Severl y decreased 15-29 G5 Kidney failure <15Reported eGF R is based on the CKD-EPI 1 equation that d oes not use a race coefficientEsti mated GFR is not as accur ate as Creatinine Brenda gunnar in predicting glom erular filtration rate . Estimated GFR is not appl icable for dialysis patien ts Claim Attorney ID - [id number] 05:07:47 Test Item Value Reference Range Interpretation Comments MAGNESIUM (BEAKER) (test code = 2.0 mg/dL 1.6-2.6 627) Claim Attorney ID - marioPOCT-GLUCOSE [id number] 21:22:39 Test Item Value Reference Range Interpretation Comments POC-GLUCOSE METER 150 mg/dL 70-110 H : [facility] (BEAKER) (test code = [facility], 1538) [address]: Claim Attorney/Techni kate ID = [id number] for Praneeth Lzoada POCT-GLUCOSE [id number] 17:31:26 Test Item Value Reference Range Interpretation Comments POC-GLUCOSE METER 179 mg/dL 70-110 H : Notified RN/MD: ([facility]) (test code = TESTED AT [place] [id number] 1538) [facility], [id number]: Claim Attorney/Techni kate ID = [id number] for WHITLEY COFFEY POCT-GLUCOSE [id number] 13:20:47 Test Item Value Reference Range Interpretation Comments POC-GLUCOSE METER 176 mg/dL 70-110 H : [facility] (BEAKER) (test code = [facility], 1538) [id number]: Claim Attorney/Techni kate ID = [id number] for WHITLEY COFFEY B-TYPE NATRIURETIC FACTOR (BNP)2023-03-18 12:20:49 Test Item Value Reference Range Interpretation Comments B-TYPE NATRIURETIC PEPTIDE (BEAKER) 637 pg/mL 0-100 H (test code = 700) Claim Attorney ID - ADMINPOCT-GLUCOSE [id number] 08:04:13 Test Item Value Reference Range Interpretation Comments POC-GLUCOSE METER 121 mg/dL 70-110 H : [facility] (BEAKER) (test code = [facility], 153) [address]: Claim Attorney/Techni kate ID = [id number] for WHITLEY COFFEY BASIC METABOLIC [id number] 04:53:40 Test Item Value Reference Range Interpretation [...] not appl icable for dialysis patien ts Claim Attorney ID - [id number] 04:53:40 Test Item Value Reference Range Interpretation Comments MAGNESIUM (BEAKER) (test code = 1.9 mg/dL 1.6-2.6 627) Claim Attorney ID - ADMINCBC (HEMOGRAM ONLY)2023-03-18 04:32:37 Test [...] MEAN CORPUSCULAR HEMOGLOBIN CONC 32.2 GM/DL 32.2-35.5 ([facility]) (test code = 752) RED CELL DISTRIBUTION WIDTH 13.7 % 11.7-14.4 ([facility]) (test code = 412) PLATELET COUNT ([facility]) (test 262 K/CU MM 150-450 code = 756) MEAN PLATELET VOLUME ([facility]) 10.9 fL 9.4-12.3 (test code = 754) NUCLEATED RED BLOOD CELLS 0 /100 WBC 0-0 ([facility]) (test code = 413) POCT-GLUCOSE [id number] 21:49:26 Test Item Value Reference Range Interpretation Comments POC-GLUCOSE METER 139 mg/dL 70-110 H : TESTED A T [facility] 6720 ([facility]) (test code = [facility], 153) [address]: Claim Attorney/Techni kate ID = [id number] for TANGELA Kitchen POCT-GLUCOSE [id number] 18:03:00 Test Item Value Reference Range Interpretation Comments POC-GLUCOSE METER 155 mg/dL 70-110 H : Notified RN/MD: ([facility]) (test code = TESTED AT [place] [address] 1538) [facility], [address]: Claim Attorney/Techni kate ID = [id number] for AN WHITLEY SILVA POCT-GLUCOSE [id number] 11:34:28 Test Item Value Reference Range Interpretation Comments POC-GLUCOSE METER 160 mg/dL 70-110 H : Notified RN/MD: ([facility]) (test code = TESTED AT [place] [address] 1538) [facility], [address]: Claim Attorney/Techni kate ID = [id number] for AN WHITLEY SILVA POCT-GLUCOSE [id number] 07:50:44 Test Item Value Reference Range Interpretation Comments POC-GLUCOSE METER 131 mg/dL 70-110 H : TESTED A T [facility] 6720 ([facility]) (test code = [facility], 153) [address]: Claim Attorney/Techni kate ID = [id number] for AN WHITLEY SILVA BASIC METABOLIC [id number] 06:13:40 Test Item Value Reference Range Interpretation Comments SODIUM ([facility]) 138 meq/L 136-145 (test code = 381) [...] not appl icable for dialysis patien ts Claim Attorney ID - RAMILA [id number] 06:13:40 Test Item Value Reference Range Interpretation Comments MAGNESIUM (BEAKER) (test code = 2.0 mg/dL 1.6-2.6 627) Claim Attorney ID - RAMILA GPOCT-GLUCOSE [id number] 21:06:45 Test Item Value Reference Range Interpretation Comments POC-GLUCOSE METER 177 mg/dL 70-110 H : TESTED A T [facility] 6720 (BEAKER) (test code = [facility], 153) [address]: Claim Attorney/Techni kate ID = [id number] for HERLINDA SNYDER POCT-GLUCOSE [id number] 16:59:00 Test Item Value Reference Range Interpretation Comments POC-GLUCOSE METER 147 mg/dL 70-110 H : TESTED A T [facility] 6720 (BEAKER) (test code = [facility], 1538) [address]: Claim Attorney/Techni kate ID = [id number] for Mimi Campoverde POCT-GLUCOSE [id number] 11:21:37 Test Item Value Reference Range Interpretation Comments POC-GLUCOSE METER 202 mg/dL 70-110 H : TESTED A T [facility] 6720 (BEAKER) (test code = MENA Clemons [facility], 1538) [address]: Claim Attorney/Techni kate ID = [id number] for Brandy Beckwith POCT-GLUCOSE [id number] 07:56:25 Test Item Value Reference Range Interpretation Comments POC-GLUCOSE METER 205 mg/dL 70-110 H : TESTED A T [facility] 6720 (BEAKER) (test code = MENA Clemons [facility], 1538) [address]: Claim Attorney/Techni kate ID = [id number] for Brandy Beckwith [id number] 05:24:56 Test Item Value Reference Range Interpretation Comments MAGNESIUM (BEAKER) (test code = 2.1 mg/dL 1.6-2.6 627) Claim Attorney ID - MARCOBASIC METABOLIC [id number] 05:24:55 Test Item Value Reference Range Interpretation [...] GFR is not appl icable for dialysis patipauline heath Claim Attorney ID - MARCOPOCT-GLUCOSE [id number] 21:27:31 Test Item Value Reference Range Interpretation Comments POC-GLUCOSE METER 180 mg/dL 70-110 H : TESTED A T [facility] 6720 (BEAKER) (test code = [facility], 1538) [address]: Claim Attorney/Techni kate ID = [id number] for Malinda Haile POCT-GLUCOSE [id number] 17:56:46 Test Item Value Reference Range Interpretation Comments POC-GLUCOSE METER 202 mg/dL 70-110 H : TESTED A T [facility] 6720 (BEAKER) (test code = [facility], 1538) [address]: Claim Attorney/Techni kate ID = [id number] for NAIMA CRYSTAL POCT-GLUCOSE [id number] 13:22:26 Test Item Value Reference Range Interpretation Comments POC-GLUCOSE METER 272 mg/dL 70-110 H : TESTED A T [facility] 6720 (BEAKER) (test code = [facility], 1538) [address]: Claim Attorney/Techni kate ID = [id number] for NAIMA CRYSTAL POCT-GLUCOSE [id number] 08:22:48 Test Item Value Reference Range Interpretation Comments POC-GLUCOSE METER 197 mg/dL 70-110 H : TESTED A T [facility] 6720 (BEAKER) (test code = [facility], 1538) [address]: Claim Attorney/Techni kate ID = [id number] for NAIMA CRYSTAL BASIC METABOLIC [id number] 04:26:11 Test Item Value Reference Range Interpretation [...] De scription 1092) sq m Result G1 Norm al or high >=90 G2 Mildly decreased 60-89 [...] not appl icable for dialysis patien ts Claim Attorney ID - MARCOCBC W/PLT COUNT & AUTO [id number] 04:04:24 Test Item Value Reference Range Interpretation [...] PERCENT (BEAKER) (test code = 2801) POCT-GLUCOSE [id number] 21:11:46 Test Item Value Reference Range Interpretation Comments POC-GLUCOSE METER 204 mg/dL 70-110 H : TESTED A T [facility] 6720 (RAQUEL) (test code = MENA Clemons [facility], 1538) [address]: Claim Attorney/Techni kate ID = [id number] for Ts ada, Malinda Venous doppler legs [id number] 21:00:27Ejection FractionSLEH ECHO HEARTLAB [facility]CKProv[facility] CampusPOCT[facility]SE [id number] 18:45:05 Test Item Value Reference Range Interpretation Comments POC-GLUCOSE METER 223 mg/dL 70-110 H : Notified RN/MD: (RAQUEL) (test code = TESTED AT [facility] 6720 1538) [facility], [address]: Claim Attorney/Techni kate ID = [id number] for AN WHITLEY SILVA 2D Echo W/Doppler(CW/PW/Color)2023-03-14 14:55:14Ejection FractionSLEH ECHO HEARTLAB MKCKESSON CPACSCHI [facility] [id number] 12:23:39 Test Item Value Reference Range Interpretation Comments POC-GLUCOSE METER 175 mg/dL 70-110 H : TESTED A T [facility] 6720 (BEAKER) (test code = MENA Clemons [facility], 1538) [address]: Claim Attorney/Techni kate ID = [id number] for WHITLEY COFFYE POCT-GLUCOSE [id number] 07:37:40 Test Item Value Reference Range Interpretation Comments POC-GLUCOSE METER 161 mg/dL 70-110 H : TESTED A T [facility] 6720 (BEAKER) (test code = MENA Clemons [facility], 1538) [address]: Claim Attorney/Techni kate ID = [id number] for NAIMA CRYSTAL BASIC METABOLIC [id number] 06:11:37 Test Item Value Reference Range Interpretation [...] 30-44 G4 Severl y decreased 15-29 G5 Kidne y failure <15Reported eGF R is based on the CKD-EPI 2020 equation that d oes not use a race coefficientEsti mated GFR is not as accur ate as Creatinine Brenda gunnar in predicting glom erular filtration rate . Estimated GFR is not appl icable for dialysis patien ts Claim Attorney ID - [id number] 06:10:07 Test Item Value Reference Range Interpretation Comments MAGNESIUM (BEAKER) (test code = 2.3 mg/dL 1.6-2.6 627) Claim Attorney ID - BSCBC W/PLT COUNT & AUTO [id number] 05:35:38 Test Item Value Reference Range Interpretation [...] PERCENT (BEAKER) (test code = 2801) POCT-GLUCOSE [id number] 20:51:47 Test Item Value Reference Range Interpretation Comments POC-GLUCOSE METER 200 mg/dL 70-110 H : TESTED A T [facility] 6720 ([facility]) (test code = [facility] De[facility], 1538) [address]: Claim Attorney/Techni kate ID = [id number] for Malinda Haile POCT-GLUCOSE [id number] 16:50:37 Test Item Value Reference Range Interpretation Comments POC-GLUCOSE METER 201 mg/dL 70-110 H : Notified RN/MD: ([facility]) (test code = TESTED AT [facility] 6720 1538) [facility], [address]: Claim Attorney/Techni kate ID = [id number] for WHITLEY COFFEY CBC W/PLT COUNT & AUTO [id number] 13:23:35 Test Item Value Reference Range Interpretation [...] PERCENT (BEAKER) (test code = 2801) POCT-GLUCOSE [id number] 12:36:59 Test Item Value Reference Range Interpretation Comments POC-GLUCOSE METER 213 mg/dL 70-110 H : Notified RN/MD: (RAQUEL) (test code = TESTED AT [facility] 6720 6670) [facility], [address]: Claim Attorney/Techni kate ID = [id number] for AN WHITLEY SILVA PUL PERF IMAGING, [id number] 11:43:00Unlisted Reason for Exam - Click Yes and Enter Reason Below->No [facility] 1960 Sex: FFINAL REPORT PROCEDURE: LUNG SCAN - perfusion only CPT CODE: 53974 INDICATION: Nonspecific chest pain PROTOCOL: 5.4 mCi [...] the study of 04/11/2021. Signed: Dean Molina [facility] Verified Date/Time: 03/13/2023 11:43:29 PROCALCITONIN 2023-03-13 10:49:19 Test Item Value Reference Range Interpretation Comments PROCALCITONIN (BEAKER) (test code 0.07 ng/mL <0.05 H = 3036) SEPSIS RISK (ng/mL)Low: 0.05-0.50Intermediate: 0.51-2.00High: >=2.01BASIC METABOLIC [id number] 10:38:03 Test Item Value Reference Range Interpretation [...] (test code = 697) EGFR (BEAKER) 27 Interpretati on of eGFR (test code = [...] not appl icable for dialysis patien ts Claim Attorney ID - MMC-REACTIVE [id number] 10:31:41 Test Item Value Reference Range Interpretation Comments C-REACTIVE PROTEIN (BEAKER) (test 5.95 mg/dL 0.00-0.50 H code = 676) Claim Attorney ID - MMHEPATIC FUNCTION [id number] 10:31:40 Test Item Value Reference Range Interpretation [...] (test code = 16 U/L 6-55 347) Claim Attorney ID - [id number] 10:27:59 Test Item Value Reference Range Interpretation [...] of thrombosis is within 95-100% range. HEMOGLOBIN [id number] 09:02:21 Test Item Value Reference Range Interpretation Comments HEMOGLOBIN A1C 10.6 % See_Comment H [Automated m essage] ELECTROPHORESIS ([facility]) The system which (test code = 3811) generated this result transmitted ref erence range: <=5.6%. The reference range was not used to int erpret this result as normal/abnormal . "The A1c is measured using a [facility]-certified method. HbA1c value equal to or greater than 6.5% as thediagnosis cutoff for diabetes. An HbA1c value of 5.7- 6.4% indicates increased risk for diabetes (prediabetes)."Claim Attorney ID - ADMPOCT- GLUCOSE [id number] 08:55:22 Test Item Value Reference Range Interpretation Comments POC-GLUCOSE METER 175 mg/dL 70-110 H : TESTED A T [facility] 6720 (DNA GuideAKER) (test code = [facility], 1538) [address]: Claim Attorney/Techni kate ID = [id number] for WHITLEY COFFEY POCT-GLUCOSE [id number] 21:51:30 Test Item Value Reference Range Interpretation Comments POC-GLUCOSE METER 185 mg/dL 70-110 H : TESTED A T [facility] 6720 (DNA GuideAKER) (test code = [facility], 1538) [address]: Claim Attorney/Techni kate ID = [id number] for AVA SORENSON POCT-GLUCOSE [id number] 19:20:32 Test Item Value Reference Range Interpretation Comments POC-GLUCOSE METER 198 mg/dL 70-110 H : TESTED A T [facility] 6720 (DNA GuideAKER) (test code = [facility], 1538) [address]: Claim Attorney/Techni kate ID = [id number] for Ec by (contract), Kayla lsa HIGH SENSITIVITY TROPONIN [id number] 13:40:19 Test Item Value Reference Range Interpretation Comments HIGH SENSITIVITY TROPONIN I (test 15 pg/ml <=17 code = 1040484) Claim Attorney ID - Will SECURITY ADVISOR STAT High Sensitivity Troponin-I results should be used in conjunction with other diagnostic information such as ECG, clinical observations and information, and patientsymptoms to aid in the diagnosis of NV. B-TYPE NATRIURETIC FACTOR (BNP)2023-03-12 13:38:20 Test Item Value Reference Range Interpretation Comments B-TYPE NATRIURETIC PEPTIDE (BEAKER) 360 pg/mL 0-100 H (test code = 700) Claim Attorney ID - BSRAD, CHEST, 1 VIEW, NON [id number] 13:36:00Reason for exam:- >SHORTNESS OF BREATHShould this be performed at the bedside?->Yes [facility] : 1960 Sex: FFINAL REPORT INDICATION: SHORTNESS OF BREATH COMPARISON: None TECHNIQUE: Single frontal view of the chest. FINDINGS: Lungs and pleura: Clear lungs. No effusion.Heart and mediastinum: Normal heart size. Unremarkable mediastinal contours.Osseous structures: No acute abnormality.Other: None. IMPRESSION: No acute intrathoracic abnormality. Signed: Shani Valdes MDReport Verified Date/Time: 03/12/2023 13:36:31 Reading Location: [address] Reading Room [facility] METABOLIC [id number] 13:32:35 Test Item Value Reference Range Interpretation [...] not appl icable for dialysis patien ts Claim Attorney ID - [id number] 13:32:03 Test Item Value Reference Range Interpretation Comments MAGNESIUM (BEAKER) (test code = 2.3 mg/dL 1.6-2.6 627) Claim Attorney ID - MARIOLACTIC ACID, [id number] 13:27:54 Test Item Value Reference Range Interpretation Comments LACTATE BLOOD VENOUS 1.86 mmol/L 0.50-2.00 Specime n slightly (2) (BEAKER) (test hemolyzed code = 4790) Claim Attorney ID - MARIOBLOOD GAS, [id number] 13:18:47 Test Item Value Reference Range Interpretation [...] 1819) 28.0 CBC W/PLT COUNT & AUTO [id number] 13:15:19 Test Item Value Reference Range Interpretation [...] = 2801) RAD, FOOT, MIN 3 VIEWS, [id number] 15:10:00Reason for exam:->[facility] 1960 Sex: FFINAL REPORT RAD, FOOT, MIN 3 VIEWS, RIGHT HISTORY: FOOT PAIN COMPARISON: None IMPRESSION: Three radiographs of the right foot submitted for review 1.No acute osseous abnormality of theright foot. 2.Mild polyarticular degenerative changes most notable at the first metatarsophalangeal joint. Small plantar calcaneal enthesophyte3.No radiopaque foreign body. Vascular calcifications Signed: Tavon Headepbaljinder Verified Date/Time: 03/09/2023 15:10:01 SENSITIVITY TROPONIN [id number] 14:11:41 Test Item Value Reference Range Interpretation Comments HIGH SENSITIVITY TROPONIN I (test 17 pg/ml <=17 code = 2295618) Claim Attorney ID - MARCOThe SECURITY ADVISOR STAT High Sensitivity Troponin-I results should be used in conjunction with other diagnostic information such as ECG, clinical observations and information, and patientsymptoms to aid in the diagnosis of NV. B-TYPE NATRIURETIC FACTOR (BNP)2023-03-09 14:11:02 Test Item Value Reference Range Interpretation Comments B-TYPE NATRIURETIC PEPTIDE (BEAKER) 107 pg/mL 0-100 H (test code = 700) Claim Attorney ID - MARCOCOMPREHENSIVE METABOLIC [id number] 14:07:39 Test Item Value Reference Range Interpretation [...] not appl icable for dialysis patien ts Claim Attorney ID - ARACELID, FOOT, MIN 3 VIEWS, [id number] 12:57:00Reason for exam:->FOOT PAIN [facility] : 1960 Sex: FFINAL REPORT RAD, FOOT, MIN 3 VIEWS, LEFT INDICATION: FOOT PAIN COMPARISON: None TECHNIQUE: AP, lateral and oblique radiographs of the left foot FINDINGS/IMPRESSION:No acute fracture ormalalignment Signed: Shani Valdes MDReport Verified Date/Time: 03/09/2023 12:57:29 Reading Location: [address] Reading Room CBC W/PLT COUNT & AUTO [id number] 12:28:36 Test Item Value Reference Range Interpretation [...] PERCENT (BEAKER) (test code = 2801) POC-Glucose [id number] 12:24:16 Test Item Value Reference Range Interpretation Comments POC-Glucose Meter (test 202 mg/dL 70-110 H : TE STED AT [facility] code = 1538) 6720 [facility], [address]: Claim Attorney/Techni kate ID = [id number] for Daisy Cotter Lab Interpretation (test Abnormal code = 95695-5) [facility] [id number] 12:24:16 Test Item Value Reference Range Interpretation Comments POC-GLUCOSE METER 202 mg/dL 70-110 H : TESTED A T [facility] 6720 (BEAKER) (test code = MENA Clemons [facility], 1538) [address]: Claim Attorney/Techni kate ID = [id number] for Nolvia Dias POCT-GLUCOSE [id number] 06:28:47 Test Item Value Reference Range Interpretation Comments POC-GLUCOSE METER 183 mg/dL 70-110 H : TESTED A T [facility] 6720 (BEAKER) (test code = MENA Clemons [facility], 1538) [address]: Claim Attorney/Techni kate ID = [id number] for Naima Tirado BASIC METABOLIC [id number] 05:39:57 Test Item Value Reference Range Interpretation [...] De scription 1092) sq m Result G1 Norm al or high >=90 G2 Mildly decreased 60-89 [...] not appl icable for dialysis patien ts Claim Attorney ID - PIAYA LPOCT-GLUCOSE [id number] 22:16:48 Test Item Value Reference Range Interpretation Comments POC-GLUCOSE METER 192 mg/dL 70-110 H : TESTED A T [facility] 6720 (BEAKER) (test code = [facility], 1538) [address]: Claim Attorney/Techni kate ID = [id number] for Naima Tirado POCT-GLUCOSE [id number] 17:03:00 Test Item Value Reference Range Interpretation Comments POC-GLUCOSE METER 141 mg/dL 70-110 H : TESTED A T [facility] 6720 (BEAKER) (test code = [facility], 1538) [address]: Claim Attorney/Techni kate ID = [id number] for Catherine Blumia 2D Echo W/Doppler(CW/PW/Color)2022-11-15 14:12:59Ejection FractionSLEH ECHO HEARTLAB MKCKProvidence [facility] Campus2D Echo W/Doppler(CW/PW/Color)2022-11-15 14:12:59Ejection FractionSLEH ECHO HEARTLAB MKCKESSLos Banos Community HospitalPOCT-GLUCOSE [id number] 11:22:28 Test Item Value Reference Range Interpretation Comments POC-GLUCOSE METER 219 mg/dL 70-110 H : TESTED A T [facility] 6720 (BEAKER) (test code = [facility], 1538) [address]: Claim Attorney/Techni kate ID = [id number] for Catherine Blumia BASIC METABOLIC [id number] 09:56:16 Test Item Value Reference Range Interpretation [...] decreased 60-89 G3a Mildl y to moderately 45- 59 G3b Moderately to s everely 30-44 G4 Severl y decreased 15-29 G5 Kidney failure <15Reported eGF R is based on the CKD-EPI 2020 equation that d oes not use a race coefficientEsti mated GFR is not as accur ate as Creatinine Brenda gunnar in predicting glom erular filtration rate . Estimated GFR is not appl icable for dialysis patien ts Claim Attorney ID - D WALKEROperator ID - D WALKERPOCT-GLUCOSE [id number] 06:49:15 Test Item Value Reference Range Interpretation Comments POC-GLUCOSE METER 165 mg/dL 70-110 H : TESTED A T [facility] 6720 (BEJobool) (test code [facility], = 1538) [address]: Claim Attorney/Techni kate ID = [id number] for Maynard , Netta POCT-GLUCOSE [id number] 21:20:09 Test Item Value Reference Range Interpretation Comments POC-GLUCOSE METER 175 mg/dL 70-110 H : TESTED A T [facility] 6720 (BEJobool) (test code [facility], = 1538) [address]: Claim Attorney/Techni kate ID = [id number] for Maynard , Netta POCT-GLUCOSE [id number] 16:51:04 Test Item Value Reference Range Interpretation Comments POC-GLUCOSE METER 179 mg/dL 70-110 H : TESTED A T [facility] 6720 ([facility]) (test code = [facility], 1538) [address]: Claim Attorney/Techni kate ID = [id number] for BlumCatherine amayaia POCT-GLUCOSE [id number] 11:07:41 Test Item Value Reference Range Interpretation Comments POC-GLUCOSE METER 199 mg/dL 70-110 H : TESTED A T [facility] 6720 (BEJobool) (test code = [facility], 1538) [address]: Claim Attorney/Techni kate ID = [id number] for Preethi Blum POCT-GLUCOSE [id number] 06:48:15 Test Item Value Reference Range Interpretation Comments POC-GLUCOSE METER 223 mg/dL 70-110 H : TESTED A T [facility] 6720 (BEAKER) (test code [facility], = 1538) [address]: Claim Attorney/Techni kate ID = [id number] for Netta Maynard COMPREHENSIVE METABOLIC [id number] 05:56:06 Test Item Value Reference Range Interpretation [...] not appl icable for dialysis patien ts Claim Attorney ID - MARCOOperator ID - [id number] 05:54:31 Test Item Value Reference Range Interpretation Comments PHOSPHORUS (BEAKER) (test code = 5.7 mg/dL 2.3-4.7 H 604) Claim Attorney ID - MARCOCREATINE KINASE (CK)2022-11-14 05:54:31 Test Item Value Reference Range Interpretation Comments CREATINE KINASE TOTAL (BEAKER) (test 31 U/L 29-200 code = 380) Claim Attorney ID - [id number] 05:54:30 Test Item Value Reference Range Interpretation Comments MAGNESIUM (BEAKER) (test code = 2.4 mg/dL 1.6-2.6 627) Claim Attorney ID - MARCOCALCIUM, [id number] 05:40:18 Test Item Value Reference Range Interpretation Comments CALCIUM IONIZED (BEAKER) (test 1.07 mmol/L 1.12-1.27 L code = 698) PH, BLOOD (BEAKER) (test code = 7.39 1810) CBC W/PLT COUNT & AUTO [id number] 05:32:16 Test Item Value Reference Range Interpretation [...] PERCENT (BEAKER) (test code = 2801) POCT-GLUCOSE [id number] 01:39:21 Test Item Value Reference Range Interpretation Comments POC-GLUCOSE METER 286 mg/dL 70-110 H : TESTED A T [facility] 6720 (BEAKER) (test code = MENA Clemons [facility], 1538) [address]: Claim Attorney/Techni kate ID = [id number] for Ng analy, Tram Protein, random [id number] 23:22:35 Test Item Value Reference Range Interpretation Comments Protein, Urine (test code 0-14 = 2888-6) ANTHONY (test code = ANTHONY) Claim Attorney ID - PIAYA Oracio Lab Interpretation (test Normal code = 88850-2) [facility] [id number] 23:22:35 Test Item Value Reference Range Interpretation Comments PROTEIN, URINE (BEAKER) (test code = < mg/dL 0-14 1569) Claim Attorney ID - VERA LCreatinine, random [id number] 23:17:55 Test Item Value Reference Range Interpretation Comments Creatinine, Ur 72.4 mg/dL (test code = 2161-8) ANTHONY (test code = Reference Range: No ANTHONY) NormalsOperator ID - VERA L [facility] CenterCREATININE, RANDOM [id number] 23:17:55 Test Item Value Reference Range Interpretation Comments CREATININE URINE (BEAKER) (test 72.4 mg/dL code = 375) Reference Range: No NormalsOperator ID Natalya GAMEZ RONEN/S, RENAL, [id number] 21:47:00Reason for exam:->DIZZINESS [facility] : 1960 Sex: FFINAL REPORT EXAM/TECHNIQUE: Retroperitoneal ultrasound. INDICATION: Dizziness. COMPARISON: None. FINDINGS: Right kidney: The right kidney measures 8.5 x 4.7 x 5.8 cm. No hydronephrosis. Normal echotexture.Left kidney: The left kidney measures 10.4 x 5.6 x 5.0 cm. No hydronephrosis. Normal echotexture. Bladder: Unremarkable. Impression: No hydronephrosis. Signed: Emilio Puga Verified Date/Time: 11/13/2022 21:47:51 SARS-CoV2/Influenza/RSV [id number] 21:00:13 Test Item Value Reference Interpretation Comments Range SARS-COV2/RT-PCR Negative Negative The SARS-Co V-2 (test code = target nucleic 25945-1) acids are not detected in thi s specimen. Negat flash [...] rapid, real-elaina e RT-PCR test intended for th e qualitative detection of nucleic acid fr om SARS-CoV-2 in a nasopharyngeal swab specimen collec layne from individual s suspected of COVID-19 by the healthcare provider. Influenza A RT-PCR Negative Negative The Flu A target (test code = [place] [address]-1) not detected in this specimen. Influenza B RT-PCR Negative Negative The Flu B target (test code = [place] [address]-1) not detected in this specimen. RSV by RT-PCR (test Negative Negative The RSV target code = 08079-6) nucleic acid s are not detected in [...] SARS-CoV-2/Flu/RSV by their healthcare provider. Results from [facility] Xpert Xpress SARS-CoV-2/Flu/RSV test should be [...] the Act. Fact Sheet for Healthcare Providers:https://w [employer]/Docu ments/Xpert%20Xpres s%20SARS%20CoV-2/Fa ct%20Sheets/302-390 2%95IZOJ-FQT-1%20HE ALTHCARE%20PROVIDER S%20FACT%20SHEET.pd f Fact Sheet for Healthcare Patients:https://[employer]/Docum ents/Xpert%20Xpress %20SARS%20Cov-2/Fac t%20Sheets/302-3801 %26KAGP-SWD-4%20PAT IENT%20FACT%20SHEET .pdf Lab Interpretation Normal (test code = 52974-9) [facility] [id number] 21:00:13 Test Item Value Reference Interpretation Comments Range SARS-COV2/RT-PCR Negative Negative The SARS-Co V-2 (test code = target nucleic 04038-3) acids are not detected in thi s specimen. Negat flash [...] rapid, real-elaina e RT-PCR test intended for th e qualitative detection of nucleic acid fr om SARS-CoV-2 in a nasopharyngeal swab specimen collec layne from individual s suspected of COVID-19 by the ir healthcare provider. Influenza A RT-PCR Negative Negative The Flu A target (test code = [place] [address]-9) not detected in this specimen. Influenza B RT-PCR Negative Negative The Flu B target (test code = [place] [address]-5) not detected in this specimen. RSV by RT-PCR (test Negative Negative The RSV target code = 10226-4) nucleic acid s are not detected in [...] the Act. Fact Sheet for Healthcare Providers:https://w ww.[employer]/Docu ments/Xpert%20Xpres s%20SARS%20CoV-2/Fa ct%20Sheets/302-390 2%89UPGH-TMD-0%20HE ALTHCARE%20PROVIDER S%20FACT%20SHEET.pd f Fact Sheet for Healthcare Patients:https://ww w.[employer]/Docum ents/Xpert%20Xpress %20SARS%20Cov-2/Fac t%20Sheets/302-3801 %68JKNQ-FXS-8%20PAT IENT%20FACT%20SHEET .pdf Lab Interpretation Normal (test code = 96310-5) [facility]INFLUENZA/RSV [id number] 21:00:13 Test Item Value Reference Range Interpretation Comments SARS-COV2/RT-PCR Negative Negative The SARS-Co V-2 target (test code = nucleic acids a re not 1470043) detected in thi s specimen. Negat flash [...] individuals monique pected of COVID-[address] [facility]. INFLUENZA A RT-PCR Negative Negative The Flu A target nucleic (test code = acids are not d etected in 8736253) this specimen. INFLUENZA B RT-PCR Negative Negative The Flu B target nucleic (test code = acids are not d etected in 7695569) this specimen. RSV RT-PCR (test Negative Negative The RSV tar get nucleic code = 3051280) acids are no t detected in this [...] Xpress SARS-CoV-2/Flu/RSV by their healthcareprovider. Results from [facility] Xpert Xpress SARS-CoV-2/Flu/RSV test should be [...] of the Act.Fact Sheet for Healthcare Providers:https ://www.[employer]/Documents/Xpert%20Xpress%20SARS%20CoV-2/Fact%20Sheets/302390 2%56BHIN-WVG-9%20HEALTHCARE%20PROVIDERS%20FACT%20SHEET.pdfFact Sheet for Healthcare Patients:https://www.[employer]/Docum ents/Xpert%20Xpress%20SARS%20Cov-2/Fact%20Sheets/302-0551%28MNBP-SLH-4%20PATIENT %20FACT%20SHEET.pdfBLOOD GAS, [id number] 19:28:27 Test Item Value Reference Range Interpretation [...] (BEAKER) (test code = 1819) 21.0 KETONE, [id number] 19:24:07 Test Item Value Reference Range Interpretation Comments KETONES, BLOOD (BEAKER) (test code 0.1 mmol/L <0.4 = 1103) ECG/EKG [id number] 18:19:20 Test Item Value Reference Range Interpretation Comments ANTHONY (test code = ANTHONY) Steffanie Puente MD 11/13/2022 7:52 PMECG/EKG Interpretation Date/Time: 11/13/2022 6:19 PMPerformed by: Steffanie Puente MDAuthorized by: Steffanie Puente MD The ECG is interpreted as sinus rhythm. Abnormal conduction noted: left bundle branch block.ST segments normal. T waves normal. Pike is left. Clinical Impression: abnormal ECGECG reviewed and does not meet STEMI criteria. Patient tolerance: patient tolerated the procedure well with no immediate complications Lab Interpretation Abnormal (test code = 15320-4) [facility] [id number] 18:19:20 Test Item Value Reference Range Interpretation Comments ANTHONY (test code = ANTHONY) Steffanie Puente MD 11/13/2022 7:52 PMECG/EKG Interpretation Date/Time: 11/13/2022 6:19 PMPerformed by: Steffanie Puente MDAuthorized by: Steffanie Puente MD The ECG is interpreted as sinus rhythm. Abnormal conduction noted: left bundle branch block.ST segments normal. T waves normal. Pike is left. Clinical Impression: abnormal ECGECG reviewed and does not meet STEMI criteria. Patient tolerance: patient tolerated the procedure well with no immediate complications Lab Interpretation Abnormal (test code = 19951-3) [facility]/Microscopic + Reflex to Culture 2022-11-13 15:35:18 Test Item Value Reference Range Interpretation Comments Color, UA (test code Light Yellow = 5778-6) Clarity, UA (test Clear code = 5767-9) Specific [place], UA 1.013 1.001-1.035 (test code = 5811-5) pH, UA (test code = 6.0 5.0-8.0 5803-2) Protein, UA (test Negative Negative code = 84103-1) Glucose, UA (test 300 mg/dL Negative A code = 365) Ketones, UA (test Negative Negative code = 2514-8) Bilirubin, UA (test Negative Negative code = 57757-5) Blood, UA (test code Negative Negative = 69456-6) Nitrite, UA (test Negative Negative code = 5802-4) Leukocytes, UA (test Small Negative A code = 5799-2) Urobilinogen, UA 0.2 0.2-1.0 (test code = 49267-2) RBC, UA (test code = 1 See_Comment [Autom ated 97886-5) message] The system which generated this result [...] 9 See_Comment [Automate d (test code = 58647-6) messag e] The system which generated this result transmit layne reference range : /HPF. The reference range was not used to interpret this result as normal/abnormal . Specimen Source (test code = 2795) ANTHONY (test code = ANTHONY) Claim Attorney ID - [auto]Claim Attorney ID - tech Lab Interpretation Abnormal (test code = 11381-4) [facility] + Reflex to Culture 2022-11-13 15:35:18 Test Item Value Reference Range Interpretation Comments Color, UA (test code Light Yellow = 5778-6) Clarity, UA (test Clear code = 5767-9) Specific [place], UA 1.013 1.001-1.035 (test code = 5811-5) pH, UA (test code = 6.0 5.0-8.0 5803-2) Protein, UA (test Negative Negative code = 88941-0) Glucose, UA (test 300 mg/dL Negative A code = 365) Ketones, UA (test Negative Negative code = 2514-8) Bilirubin, UA (test Negative Negative code = 52628-7) Blood, UA (test code Negative Negative = 63465-4) Nitrite, UA (test Negative Negative code = 5802-4) Leukocytes, UA (test Small Negative A code = 5799-2) Urobilinogen, UA 0.2 0.2-1.0 (test code = 71128-3) RBC, UA (test code = 1 See_Comment [Autom ated 50489-9) message] The system which generated this result [...] 9 See_Comment [Automate d (test code = 77567-8) messag e] The system which generated this result transmit layne reference range : /HPF. The reference range was not used to interpret this result as normal/abnormal . Specimen Source (test code = 2795) ANTHONY (test code = ANTHONY) Claim Attorney ID - [auto]Claim Attorney ID - tech Lab Interpretation Abnormal (test code = 04732-2) [facility]/ REFLEX URINE [id number] 15:35:18 Test Item Value Reference Range Interpretation [...] = 516) SOURCE(BEAKER) (test code = 2795) Claim Attorney ID - [auto]Claim Attorney ID - techCOMPREHENSIVE METABOLIC [id number] 14:03:30 Test Item Value Reference Range Interpretation [...] not appl icable for dialysis patien ts Claim Attorney ID - MARCOOperator ID - [id number] 14:03:19 Test Item Value Reference Range Interpretation Comments MAGNESIUM (BEAKER) 2.4 mg/dL 1.6-2.6 Specimen moderately (test code = 627) hemolyzed Claim Attorney ID - [id number] 14:03:19 Test Item Value Reference Range Interpretation Comments PHOSPHORUS (BEAKER) 5.4 mg/dL 2.3-4.7 H Specimen moderately (test code = 604) hemolyzed Claim Attorney ID - MARCOB-TYPE NATRIURETIC FACTOR (BNP)2022-11-13 14:01:56 Test Item Value Reference Range Interpretation Comments B-TYPE NATRIURETIC PEPTIDE (BEAKER) 71 pg/mL 0-100 (test code = 700) Claim Attorney ID - MARCOHIGH SENSITIVITY TROPONIN [id number] 14:01:33 Test Item Value Reference Range Interpretation Comments HIGH SENSITIVITY 8 pg/ml See_Comment [Automated message] TROPONIN I (test code = The system which 0295707) generated this result transmitted ref erence range: <=17. Th e reference range was not used to interpr et this result as normal/abnormal . Claim Attorney ID - CHRISTINOThe SECURITY ADVISOR STAT High Sensitivity Troponin-I results should be used in conjunction with other diagnostic information such as ECG, clinical observations and information, and patientsymptoms to aid in the diagnosis of NV. CBC W/PLT COUNT & AUTO [id number] 13:40:28 Test Item Value Reference Range Interpretation [...] (BEAKER) (test code = 2801) Comprehensive metabolic [id number] 23:40:00 Test Item Value Reference Interpretation Comments Range Glucose (test code 104 mg/dL 65-99 H Fasting reference = 2345-7) interval For so memeghna without known diabetes, a glu cose valuebetween [...] Creatinine or Cystatin Cresul t, go to https://www.[employer] renard.o rg/professional s/kdo qi/gfr%5Fcalcul ator [Automated mess age] The system [employer] h generated this result transmit layne reference range : > OR = 60 mL/min/1.73m2. The reference range was not used to interpret this result as normal/abnormal . BUN/creatinine 21 See_Comment [Automated m essage] ratio (test code = The syste m which 3097-3) generated this result transmit layne reference range : 6 - 22 (calc). The reference range was not used to interpret this result as normal/abnormal . Sodium (test code = 142 mmol/L 783-370 4649-2) Potassium (test 4.7 mmol/L 3.5-5.3 code = 2823-3) Chloride (test code 102 mmol/L 98-110 = 2075-0) CO2 (test code = 31 mmol/L 20-32 2027-9) Calcium (test code 9.6 mg/dL 8.6-10.4 = 63440-8) Protein (test code 6.7 g/dL 6.1-8.1 = 2885-2) Albumin, S (test 3.8 g/dL 3.6-5.1 code = 1751-7) Globulin, total 2.9 See_Comment [Automated message] (test code = The system [employer] h 19137-7) generated this result transmit layne reference range : 1.9 - 3.7 g/dL (vidhya c). The reference r yamileth was not used to interpret this result as normal/abnormal . Albumin/globulin 1.3 See_Comment [Automated message] ratio (test code = The syste m which 1759-0) generated this result transmit layne [...] = Performing RAC) Organization Information: Site ID: [facility] Name: [facility] Address: [address] [place], [place] [id number] Director: Franco Gerardo Lab Interpretation Abnormal (test code = 17619-3) [facility] natriuretic [id number] 23:40:00 Test Item Value Reference Interpretation Comments Range BNP (test code = 209 pg/mL See_Comment H BNP levels increase 43491-5) with age in the generalpopgulfport behavioral health systemti on with the highes t values seen inindividuals g reater than 75 years o f age.Reference: J. Am. Jaycob. Cardiol. 2002; 40:976-982. [Automated mess age] The system [employer] generated this result transmitted ref erence range: <=100. T he reference range was not used to int erpret this result as normal/abnormal . ANTHONY (test code = FASTING:YES ANTHONY) FASTING: YES RAC (test code = Performing RAC) Organization Information: Site ID: A Name: [facility] Address: [address] [place] [id number] Director: Franco Gerardo Lab Interpretation Abnormal (test code = 05775-1) [facility] [id number] 23:40:00 Test Item Value Reference Range Interpretation Comments WBC (test code = 7.1 See_Comment [Automated 6690-2) message] The system which generated this result transmit layne reference range : 3.8 - 10.8 Thousand/uL. Th e reference range was not used to interpret this result as normal/abnormal . RBC (test code = 4.37 See_Comment [Automated 789-8) message] The system which generated this result [...] RAC) Organization Information: Site ID: RGA Name: [facility] Address: [address] [place] [phone] Director: Franco Gerardo [facility] HospitalHEMOGLOBIN [id number] 12:38:24 Test Item Value Reference Range Interpretation [...] 5.7- 6.4% indicates increased risk for diabetes (prediabetes)."Claim Attorney ID - ADM TSH/FREE T4 IF [id number] 12:27:05 Test Item Value Reference Range Interpretation Comments THYROID STIMULATING HORMONE 3.432 uIU/mL 0.350-4.940 (BEAKER) (test code = 772) Claim Attorney ID - DBRAD, SHOULDER, COMPLETE (MIN 2 VIEWS), [id number] 12:26:00 Reason for Exam:->left shoulder pain [facility] : 1960 Sex: FFINAL REPORT CLINICAL HISTORY: left shoulder pain TECHNIQUE: Three views of the leftshoulder COMPARISON: None FINDINGS: No acute fracture or malalignment. No radiopaque foreign body inthe soft tissues. No significant soft tissues swelling. IMPRESSION: No acute fracture or malalignment. Signed: Kate Ayoub [facility] Verified Date/Time: 04/03/2022 12:26:55 Reading Location: [facility] Radiology Reading Room COMPREHENSIVE METABOLIC [id number] 12:07:37 Test Item Value Reference Range Interpretation [...] S NOT APPLICABLE FOR DIALYSIS PATIEN TS. Claim Attorney ID - DBURIC [id number] 12:07:37 Test Item Value Reference Range Interpretation Comments URIC ACID (BEAKER) (test code = 10.1 mg/dL 2.6-7.2 H 773) Claim Attorney ID - DBCBC W/PLT COUNT & AUTO [id number] 11:45:09 Test Item Value Reference Range Interpretation [...] PERCENT (BEAKER) (test code = 2801) POC-Glucose [id number] 16:25:00 Test Item Value Reference Range Interpretation Comments POC-Glucose Meter (test 285 mg/dL 70-110 H : TE STED AT [facility] code = 1538) [address] [facility] [place], 770 30: Claim Attorney/Techni kate ID = [id number] for GRACIELA ROBB IE Lab Interpretation (test Abnormal code = 40778-7) [facility] [id number] 16:25:00 Test Item Value Reference Range Interpretation Comments POC-GLUCOSE METER 285 mg/dL 70-110 H : TESTED A T [facility] 6720 (BEAKER) (test code [facility], = 1538) [address]: Claim Attorney/Techni kate ID = [id number] for JAIMIES CARMINA GREY POCT-GLUCOSE [id number] 11:39:00 Test Item Value Reference Range Interpretation Comments POC-GLUCOSE METER 382 mg/dL 70-110 H : TESTED A T [facility] 6720 (BEAKER) (test code [facility], = 1538) [address]: Claim Attorney/Techni kate ID = [id number] for JAIMIES ONCARMINA Urine [id number] 08:15:00 Test Item Value Reference Range Interpretation Comments Result (test code = See comment 6463-4) ANTHONY (test code = 50-59,000 col/mL enteric ANTHONY) organisms of >2 types. No further workup performed. Multiple organisms suggestive of colonization or contamination. Repeat collection recommended. [facility] CenterUR[facility] [id number] 08:15:00 Test Item Value Reference Range Interpretation Comments CULTURE (BEAKER) (test code = See comment 1095) 50-59,000 col/mL enteric organisms of >2 types. No further workup performed. Multiple organisms suggestive of colonization or contamination. Repeat collection recommended.POCT-GLUCOSE [id number] 07:51:00 Test Item Value Reference Range Interpretation Comments POC-GLUCOSE METER 194 mg/dL 70-110 H : TESTED A T [facility] 6720 (BEAKER) (test code = MENA Clemons [facility], 1538) [address]: Claim Attorney/Techni kate ID = [id number] for FREDDIE BELLA TTE Basic Metabolic [id number] 05:59:00 Test Item Value Reference Range Interpretation [...] Calcium (test code = 9.9 mg/dL 8.4-10.2 04359-7) EGFR (test code = 28 mL/min/1.73 [place] [address]-4) NOT ACCURATE CREATININE CLEARANCE IN PREDICTING GLOMERULAR FILTRATION RATE . ESTIMATED GFR I S NOT APPLICABLE FOR DIALYSIS PATIENTS. ANTHONY (test code = ANTHONY) Claim Attorney ID - AMIRAH M Lab Interpretation Abnormal (test code = 14274-6) [facility] CenterBASI METABOLIC [id number] 05:59:00 Test Item Value Reference Range Interpretation [...] S NOT APPLICABLE FOR DIALYSIS PATIEN TS. Claim Attorney ID - AMIRAH [id number] 05:57:00 Test Item Value Reference Range Interpretation Comments Magnesium (test code = 1.8 mg/dL 1.6-2.6 07557-8) ANTHONY (test code = ANTHONY) Claim Attorney ID - AMIRAH M Lab Interpretation (test Normal code = 54621-5) [facility] CenterMAGNESIUM2021-05-18 05:57:00 Test Item Value Reference Range Interpretation Comments MAGNESIUM (BEAKER) (test code = 1.8 mg/dL 1.6-2.6 627) Claim Attorney ID - AMIRAH MPOCT-GLUCOSE [id number] 20:06:00 Test Item Value Reference Range Interpretation Comments POC-GLUCOSE METER 296 mg/dL 70-110 H : TESTED A T [facility] 6720 (BEAKER) (test code = [facility]8) [address]: Claim Attorney/Techni kate ID = [id number] for LUCIE OLIVEIRAA POCT-GLUCOSE [id number] 16:29:00 Test Item Value Reference Range Interpretation Comments POC-GLUCOSE METER 202 mg/dL 70-110 H : TESTED A T [facility] 6720 (BEAKER) (test code = [facility], [facility]) [address]: Claim Attorney/Techni kate ID = [id number] for BELLAFREDDIE TTE POCT-GLUCOSE [id number] 11:36:00 Test Item Value Reference Range Interpretation Comments POC-GLUCOSE METER 256 mg/dL 70-110 H : TESTED A T [facility] 6720 (BEAKER) (test code = [facility], [facility]8) [address]: Claim Attorney/Techni kate ID = [id number] for BELLA, FREDDIE TTE POCT-GLUCOSE [id number] 07:49:00 Test Item Value Reference Range Interpretation Comments POC-GLUCOSE METER 226 mg/dL 70-110 H : TESTED A T [facility] 6720 (BEAKER) (test code = [facility], [facility]) [address]: Claim Attorney/Techni kate ID = [id number] for BELLA, FREDDIE TTE BASIC METABOLIC [id number] 04:56:00 Test Item Value Reference Range Interpretation [...] S NOT APPLICABLE FOR DIALYSIS PATIEN TS. Claim Attorney ID - NEEMA [id number] 04:56:00 Test Item Value Reference Range Interpretation Comments MAGNESIUM (BEAKER) (test code = 2.2 mg/dL 1.6-2.6 627) Claim Attorney ID - NEEMA WPOCT-GLUCOSE [id number] 21:37:00 Test Item Value Reference Range Interpretation Comments POC-GLUCOSE METER 341 mg/dL 70-110 H : TESTED A T [facility] 6720 (BEAKER) (test code = [facility], 1538) 18[address]: Claim Attorney/Techni kate ID = [id number] for CR ISARCENIO TIA POCT-GLUCOSE [id number] 17:17:00 Test Item Value Reference Range Interpretation Comments POC-GLUCOSE METER 348 mg/dL 70-110 H : TESTED A T [facility] 6720 (BEAKER) (test code = [facility], 1538) [address]: Claim Attorney/Techni kate ID = [id number] for [place] LLIS, KARELY POCT-GLUCOSE [id number] 12:40:00 Test Item Value Reference Range Interpretation Comments POC-GLUCOSE METER 223 mg/dL 70-110 H : TESTED A T [facility] 6720 (BEAKER) (test code = [facility], 1538) 177[address]: Claim Attorney/Techni kate ID = [id number] for [place] LLIS, KARELY POCT-GLUCOSE [id number] 08:48:00 Test Item Value Reference Range Interpretation Comments POC-GLUCOSE METER 188 mg/dL 70-110 H : TESTED A T [facility] 6720 (BEAKER) (test code = [facility], 1538) 84[address]: Claim Attorney/Techni kate ID = [id number] for [place] LLIS, KARELY Comprehensive metabolic [id number] 06:10:00 Test Item Value Reference Range Interpretation Comments Protein, Total (test 6.5 See_Comment [Autom ated code = 2885-2) message] The system which generated this result transmit layne reference range : 6.0 - 8.3 gm/dL . The reference range was not u sed to interpret th is result as normal/abnormal . Albumin (test code = 3.6 g/dL 3.5-5.0 68223-6) Alkaline Phosphatase 94 U/L 40-150 (test code = 6768-6) Total Bilirubin (test 0.6 mg/dL 0.2-1.2 code = 1974-2) Sodium (test code = 136 meq/L 066-023 9552-2) Potassium (test code 3.9 meq/L 3.5-5.1 = 2823-3) Chloride (test code = 97 meq/L 98-107 L 2075-0) CO2 (test code = 27 meq/L 22-29 8-9) BUN (test code = 48 mg/dL 7-21 H 3094-0) Creatinine (test code 1.99 mg/dL 0.57-1.25 H = 2160-0) Glucose (test code = 242 mg/dL 70-105 H 2345-7) Calcium (test code = 9.2 mg/dL 8.4-10.2 62138-8) AST (test code = 16 U/L 5-34 1920-8) ALT (test code = 15 U/L 6-55 1742-6) EGFR (test code = 25 mL/min/1.[place] [address]-3) NOT ACCURATE CREATININE CLEARANCE IN PREDICTING GLOMERULAR FILTRATION RATE . ESTIMATED GFR I S NOT APPLICABLE FOR DIALYSIS PATIEN TS. ANTHONY (test code = ANTHONY) Claim Attorney ID - NEEMA W Lab Interpretation Abnormal (test code = 86021-3) [facility]osphorus[facility]21-[facility] 06:10:00 Test Item Value Reference Range Interpretation Comments Phosphorus (test code = 3.6 mg/dL 2.3-4.7 2777-1) ANTHONY (test code = ANTHONY) Claim Attorney ID - NEEMA W Lab Interpretation (test Normal code = 87203-6) [facility]MAGNESIUM2021-05-16 06:10:00 Test Item Value Reference Range Interpretation Comments MAGNESIUM (BEAKER) (test code = 1.9 mg/dL 1.6-2.6 627) Claim Attorney ID Natalya BETHEA [id number] 06:10:00 Test Item Value Reference Range Interpretation Comments PHOSPHORUS (BEAKER) (test code = 3.6 mg/dL 2.3-4.7 604) Claim Attorney ID Natalya BETHEA WCOMPREHENSIVE METABOLIC [id number] 06:10:00 Test Item Value Reference Range Interpretation [...] S NOT APPLICABLE FOR DIALYSIS PATIEN TS. Claim Attorney ID Natalya BETHEA WCBC with platelet count + automated [id number] 05:23:00 Test Item Value Reference Range Interpretation Comments WBC (test code = 6690-2) 8.5 See_Comment [A utomated message] The system [employer] generated this result transmitted ref erence range: 3.5 - 10 .5 K/L. The refe rence range was not u sed to interpret this result as normal/abnor mal. RBC (test code = 789-8) 4.09 See_Comment [Au tomated message] The system [employer] generated this result transmitted ref erence range: 3.93 - 5 .22 M/L. The refe rence range was not u sed to interpret this result as normal/abnor mal. MCHC (test code = 786-4) 33.5 See_Comment [A utomated message] The system [employer] generated this result transmitted ref erence range: [...] See_Comment [Aut omated message] 777-3) The system [employer] generated this result transmitted ref erence range: 150 - 45 0 K/CU MM. The referen ce range was not u sed to interpret this result as normal/abnor mal. MPV (test code = 10.9 fL 9.4-12.3 05510-8) nRBC (test code = 413) 0 See_Comment [Aut omated message] The system [employer] generated this result transmitted ref erence range: [...] See_Comment [Aut omated message] 670) The system [employer] generated this result transmitted ref erence range: 1.56 - 6 .13 K/L. The refe rence range was not u sed to interpret this result as normal/abnor mal. # Lymphs (test code = 2.28 See_Comment [Auto mated message] 414) The system [employer] generated this result transmitted ref erence range: 1.18 - 3 .74 K/L. The refe rence range was not u sed to interpret this result as normal/abnor mal. # Monos (test code = 0.64 See_Comment H [Autom ated message] 415) The system [employer] generated this result transmitted ref erence range: 0.24 - 0 .36 K/L. The refe rence range was not u sed to interpret this result as normal/abnor mal. # Eos (test code = 416) 0.09 See_Comment [Au tomated message] The system [employer] generated this result transmitted ref erence range: 0.04 - 0 .36 K/L. The refe rence range was not u sed to interpret this result as normal/abnor mal. # Baso (test code = 417) 0.06 See_Comment [A utomated message] The system [employer] generated this result transmitted ref erence range: 0.01 - 0 .08 K/L. The refe rence range was not u sed to interpret this result as normal/abnor mal. Immature 0 % 0-1 Granulocytes-Relative (test code = 2801) Lab Interpretation (test Abnormal code = 05456-2) [facility] W/PLT COUNT & AUTO [id number] 05:23:00 Test Item Value Reference Range Interpretation [...] PERCENT (BEAKER) (test code = 2801) Calcium, [id number] 05:17:00 Test Item Value Reference Range Interpretation Comments Calcium, Ion (test code = 1993-) 1.08 mmol/L 1.12-1.27 L pH, Blood (test code = 12537-5) 7.45 Lab Interpretation (test code = Abnormal 33728-8) [facility], [id number] 05:17:00 Test Item Value Reference Range Interpretation Comments CALCIUM IONIZED (BEAKER) (test 1.08 mmol/L 1.12-1.27 L code = 698) PH, BLOOD ([facility]) (test code = 7.45 1810) POCT-GLUCOSE [id number] 20:58:00 Test Item Value Reference Range Interpretation Comments POC-GLUCOSE METER 195 mg/dL 70-110 H : TESTED A T [facility] 6720 ([facility]) (test code = [facility], 1538) 604[address]: Claim Attorney/Techni kate ID = [id number] for JENNIFER GREER POCT-GLUCOSE [id number] 16:56:00 Test Item Value Reference Range Interpretation Comments POC-GLUCOSE METER 239 mg/dL 70-110 H : TESTED A T [facility] 6720 ([facility]) (test code = [facility], 1538) 47630: Claim Attorney/Techni kate ID = [id number] for BAHMAN KNAPP Venous doppler legs [id number] 16:19:49Ejection FractionSLEH ECHO HEARTLAB [facility] W/Doppler(CW/PW/Color)2021-04-12 14:19:29Ejection FractionSLEH ECHO HEARTLAB [facility] CenterPOCT-GLUCOSE [id number] 12:12:00 Test Item Value Reference Range Interpretation Comments POC-GLUCOSE METER 273 mg/dL 70-110 H : TESTED A T [facility] 6720 ([facility]) (test code = [facility], 1538) 72607: Claim Attorney/Techni kate ID = [id number] for BAHMAN KNAPP [id number] 10:00:00 Test Item Value Reference Range Interpretation Comments PTT (test code = 96.2 See_Comment H [Automated message] 14161-6) The system Th[employer] generated this result transmitted ref erence range: 22.5 - 3 6.0 seconds. The reference range was not used to int erpret this result as normal/abnormal . Lab Interpretation (test Abnormal code = 37906-0) [facility] CenterAPTT20[facility] 10:00:00 Test Item Value Reference Range Interpretation Comments PARTIAL THROMBOPLASTIN TIME 96.2 seconds 22.5-36.0 H [facility] (test code = 760) POCT-GLUCOSE [id number] 08:11:00 Test Item Value Reference Range Interpretation Comments POC-GLUCOSE METER 145 mg/dL 70-110 H : TESTED [place] [facility] 6720 (BEAKER) (test code = [place], 1538) [address]: Claim Attorney/Techni kate ID = [id number] for BAHMAN KNAPP [id number] 05:18:00 Test Item Value Reference Range Interpretation Comments MAGNESIUM (BEAKER) (test code = 1.8 mg/dL 1.6-2.6 627) Claim Attorney ID - BNVOLAKJBWERYUK2628-28-60 05:18:00 Test Item Value Reference Range Interpretation Comments PHOSPHORUS (BEAKER) (test code = 4.3 mg/dL 2.3-4.7 604) Claim Attorney ID - EDASICOMPREHENSIVE METABOLIC [id number] 05:18:00 Test Item Value Reference Range Interpretation [...] S NOT APPLICABLE FOR DIALYSIS PATIEN TS. Claim Attorney ID - EDASICALCIUM, [id number] 05:08:00 Test Item Value Reference Range Interpretation Comments CALCIUM IONIZED (BEAKER) (test 1.15 mmol/L 1.12-1.27 code = 698) PH, BLOOD (BEAKER) (test code = 7.31 1810) CBC W/PLT COUNT & AUTO [id number] 04:38:00 Test Item Value Reference Range Interpretation [...] (BEAKER) (test code = 2801) Creatinine, random [id number] 02:58:00 Test Item Value Reference Range Interpretation Comments Creatinine, Ur 246.4 mg/dL (test code = 2161-8) ANTHONY (test code = Reference Range: No ANTHONY) NormalsOperator ID - AMIRAH M [facility] CenterCREATININE, RANDOM [id number] 02:58:00 Test Item Value Reference Range Interpretation Comments CREATININE URINE (BEAKER) (test 246.4 mg/dL code = 375) Reference Range: No NormalsOperator ID - AMIRAH MUrinalysis w/Microscopic 2021-04-12 02:48:00 Test Item Value Reference Range Interpretation Comments Color, UA (test code Yellow = 5778-6) Clarity, UA (test Hazy code = 5767-9) Specific [place], UA 1.015 1.001-1.035 (test code = 5811-5) pH, UA (test code = 5.5 5.0-8.0 5803-2) Protein, UA (test 20 mg/dL Negative A code = 58111-1) Glucose, UA (test Negative Negative code = 365) Ketones, UA (test Negative Negative code = 2514-8) Bilirubin, UA (test Negative Negative code = 45554-5) Blood, UA (test code Negative Negative = 85398-2) Nitrite, UA (test Negative Negative code = 5802-4) Leukocytes, UA (test Negative Negative code = 5799-2) Urobilinogen, UA 2.0 mg/dL 0.2-1.0 H (test code = 55147-1) RBC, UA (test code = 2 See_Comment [Autom ated 55240-7) message] The system which generated this result [...] . Bacteria, UA (test Occasional code = 19327-7) Mucus (test code = Rare 8247-9) Squam Epithel, UA 7 See_Comment [Automate d (test code = 49029-6) messag e] The system which generated this result transmitted reference range : /HPF. The reference range was not used to interpret this result as normal/abnormal . Hyaline Casts, UA 51 See_Comment [Automate d (test code = 77439-8) messag e] The system which generated this result transmitted reference range : /LPF. The reference range was not used to interpret this result as normal/abnormal . Yeast (test code = Occasional 27393-5) Specimen Source (test code = 2795) ANTHONY (test code = ANTHONY) Claim Attorney ID - [auto]Claim Attorney ID - tech Lab Interpretation Abnormal (test code = 60598-7) [facility] CenterURINALYSIS W/ [id number] 02:48:00 Test Item Value Reference Range Interpretation [...] 1585) Occasional SOURCE(BEAKER) (test code = 2795) Claim Attorney ID - [auto]Claim Attorney ID - techProtein, random [id number] 02:37:00 Test Item Value Reference Range Interpretation Comments Protein, Urine (test code 29 mg/dL 0-14 H = 2888-6) ANTHONY (test code = ANTHONY) Claim Attorney ID - AMIRAH M Lab Interpretation (test Abnormal code = 44416-8) [facility]odium, random [id number] 02:37:00 Test Item Value Reference Range Interpretation Comments Sodium Urine (test 41 meq/L code = 2955-3) ANTHONY (test code = Reference Range: No ANTHONY) NormalsOperator ID - AMIRAH Pippa [facility] CenterPROTEIN, RANDOM [id number] 02:37:00 Test Item Value Reference Range Interpretation Comments PROTEIN, URINE (BEAKER) (test code = 29 mg/dL 0-14 H 1569) Claim Attorney ID - AMIRAH MSODIUM, RANDOM [id number] 02:37:00 Test Item Value Reference Range Interpretation Comments SODIUM URINE (BEAKER) (test code = 41 meq/L 243) Reference Range: No NormalsOperator ID - AMIRAH [id number] 00:21:00 Test Item Value Reference Range Interpretation Comments PARTIAL THROMBOPLASTIN TIME 118.1 seconds 22.5-36.0 H (BEAKER) (test code = 760) [id number] 23:19:00 Test Item Value Reference Range Interpretation Comments PARTIAL THROMBOPLASTIN TIME 169.7 seconds 22.5-36.0 HH (BEAKER) (test code = 760) POCT-GLUCOSE [id number] 21:46:00 Test Item Value Reference Range Interpretation Comments POC-GLUCOSE METER 174 mg/dL 70-110 H : TESTED A T [facility] 6720 (BEAKER) (test code = [place] [facility], 1538) 105[address]: Claim Attorney/Techni kate ID = [id number] for JENNIFER GREER POCT-GLUCOSE [id number] 17:19:00 Test Item Value Reference Range Interpretation Comments POC-GLUCOSE METER 195 mg/dL 70-110 H : TESTED A T [facility] 6720 (BEAKER) (test code = [place] [facility], 1538) 31611: Claim Attorney/Techni kate ID = [id number] for BAHMAN KNAPP [id number] 15:38:00 Test Item Value Reference Range Interpretation Comments PARTIAL THROMBOPLASTIN TIME 30.3 seconds 22.5-36.0 (BEAKER) (test code = 760) CBC (Hemogram only)2021-04-11 15:28:00 Test Item Value Reference Range Interpretation Comments WBC (test code = 6690-2) 9.0 See_Comment [A utomated message] The system [employer] generated this result transmitted ref erence range: 3.5 - 10 .5 K/L. The refe rence range was not u sed to interpret this result as normal/abnor mal. RBC (test code = 789-8) 4.31 See_Comment [Au tomated message] The system [employer] generated this result transmitted ref erence range: 3.93 - 5 .22 M/L. The refe rence range was not u sed to interpret this result as normal/abnor mal. MCHC (test code = 786-4) 33.2 See_Comment [A utomated message] The system [employer] generated this result transmitted ref erence range: [...] code = 274 See_Comment [Aut omated message] 717-3) The system [employer] generated this result transmitted ref erence range: 150 - 45 0 K/CU MM. The referen ce range was not u sed to interpret this result as normal/abnor mal. MPV (test code = 13913-6) 10.6 fL 9.4-12.3 nRBC (test code = 413) 0 See_Comment [Aut omated message] The system [employer] generated this result transmitted ref erence range: 0 - 0 /1 00 WBC. The refere nce range was not u sed to interpret this result as normal/abnor mal. Lab Interpretation (test Normal code = 35294-7) [facility] (HEMOGRAM ONLY)2021-04-11 15:28:00 Test Item Value Reference [...] (test code = 413) PUL PERF IMAGING, [id number] 14:11:00Unlisted Reason for Exam - Click Yes and Enter Reason Below->No [facility] 1960 Sex: FFINAL REPORT PROCEDURE: LUNG SCAN - perfusion only CPT CODE: 33131 INDICATION: PE issuspected, positive D-dimer PROTOCOL: 2.2 mCi of Tc-99m MAA was injected intravenously, and static perfusion images were obtained in anterior and anterior-oblique projections. Ventilation imaging was not performed due to COVID-19 precautions. FINDINGS: Tracer distribution is near normal. IMPRESSION: Very low limited perfusion lung scan. Signed: Nicko Maynard Verified Date/Time: 04/11/2021 14:11:55 Reading Location: [address] Reading Room POCT-GLUCOSE [id number] 11:13:00 Test Item Value Reference Range Interpretation Comments POC-GLUCOSE METER 153 mg/dL 70-110 H : TESTED A T [facility] 6720 (BEAKER) (test code = MENA [place] [facility], 1538) 74238: Claim Attorney/Techni kate ID = [id number] for Chema coker Tonya SARS-CoV2/Influenza/RSV RT-PCR (Symptomatic ONLY)2021-04-11 10:06:00 Test Item Value Reference Range Interpretation Comments SARS-COV2/RT-PCR (test Negative Negative code = 22732-7) Influenza A RT-PCR Negative Negative (test code = 25773-5) Influenza B RT-PCR Negative Negative (test code = 01822-1) RSV by RT-PCR (test Negative Negative Performa nce of the code = 28587-9) Xpert Xpress SARS-CoV-2/Flu/ RSV test has only [...] Fact Sh eet for Healthcare Prov iders: https://www.[employer] /Documents/Xper t%20Xpre ss%63RKZI-UrM-1 -Flu-RSV /3024508%20Rev .%20B%20 HCP%20Fact%20Sh eet.pdf Fact Sheet for Healthcare Katerine ents: https://www.[employer] /Documents/Xper t%20Xpre ss%49PJXN-NpH-9 -Flu-RSV /3024507%20Rev .%20B%20 Patient%20Fact% 20Sheet. pdf Lab Interpretation Normal (test code = 80334-5) [facility]ARS-[facility]OV2/INFLUENZA/RSV [id number] 10:06:00 Test Item Value Reference Range Interpretation Comments SARS-COV2/RT-PCR Negative Negative (test code = 2792063) INFLUENZA A RT-PCR Negative Negative (test code = 9229499) INFLUENZA B RT-PCR Negative Negative (test code = 9876916) RSV RT-PCR (test Negative Negative Performance of the Xpert code = 4346890) Xpress SARS- CoV-2/Flu/RSV test has only b [...] iological data, and other data available to th e clinician evalu ating the patient. Invali [...] sooner.Fact She et for Healthcare Prov iders: https://www.Peecho.[employer]/D ocuments/Xpert% 20Xpress%2 9AYUV-IxS-9-Flu -RSV/302-4 508%20Rev.%20B% 20HCP%20Fa ct%20Sheet.pdfF act Sheet for Healthcare Patients: https://www.[employer]ee[employer]/D ocuments/Xpert% 20Xpress%2 9RAWY-PfW-0-Flu -RSV/302-4 507%20Rev.%20B% 20Patient% 20Fact%20Sheet. pdf Blood gas, [id number] 09:43:00 Test Item Value Reference Range Interpretation Comments pH, Arterial (test code 7.43 7.35-7.45 = 2744-1) pCO2, Arterial (test 43 See_Comment [Autom ated message] code = 2019-06) The system [facility] generated this result transmit layne reference range : 35 - 45 mm Hg. The reference range was not used to interpret this result as normal/abnormal . pO2, Arterial (test 113 See_Comment H [Automa layne message] code = 2703-7) The system ich generated this result transmit lanye reference range : 80 - 90 mm [...] 28 Lab Interpretation Abnormal (test code = 51013-5) [facility] CenterBLOOD GAS, [id number] 09:43:00 Test Item Value Reference Range Interpretation [...] (BEAKER) (test code = 1819) 28.0 D-dimer, [id number] 04:55:00 Test Item Value Reference Range Interpretation Comments D-Dimer, Quant (test 1.33 See_Comment H [Autom ated code = 67530-5) message] The system which generated this result [...] range. Lab Interpretation Abnormal (test code = 28217-4) [facility] CenterD-[id number] 04:55:00 Test Item Value Reference Range Interpretation [...] Range Interpretation Comments BNP (test code = 81113-6) 94 pg/mL 0-100 ANTHONY (test code = ANTHONY) Claim Attorney ID - EDASI Lab Interpretation (test Normal code = 92755-4) [facility] CenterHigh Sens Trop I ([facility] Only)2021-04-11 04:09:00 Test Item Value Reference Range Interpretation Comments Troponin I HS (test 8 pg/ml See_Comment [Automa layne code = 01858-7) message] The system which generated this result transmitted reference range : <=17. The reference range was not used to interpret this result as normal/abnormal . ANTHONY (test code = Claim Attorney ID - ANTHONY) EDASIThe SECURITY ADVISOR STAT High Sensitivity Troponin-I results should be used in conjunction with other diagnostic information such as ECG, clinical observations and information, and patient symptoms to aid in the diagnosis of NV. Lab Interpretation Normal (test code = 23441-1) [facility] CenterHIGH SENSITIVITY TROPONIN [id number] 04:09:00 Test Item Value Reference Range Interpretation Comments HIGH SENSITIVITY 8 pg/ml See_Comment [Automated message] TROPONIN I (test code = The system which 2171226) generated this result transmitted ref erence range: <=17. Th e reference range was not used to interpr et this result as normal/abnormal . Claim Attorney ID - EDASIThe SECURITY ADVISOR STAT High Sensitivity Troponin-I results should be used in conjunction with other diagnostic information such as ECG, clinical observations and information, and patientsymptoms to aid in the diagnosis of NV. B-TYPE NATRIURETIC FACTOR (BNP)2021-04-11 04:09:00 Test Item Value Reference Range Interpretation Comments B-TYPE NATRIURETIC PEPTIDE (BEAKER) 94 pg/mL 0-100 (test code = 700) Claim Attorney ID - EDASIBASIC METABOLIC [id number] 04:03:00 Test Item Value Reference Range Interpretation [...] S NOT APPLICABLE FOR DIALYSIS PATIEN TS. Claim Attorney ID - TINO, CHEST, 2 [id number] 03:54:00Reason for exam:- >LEG SWELLINGReason for exam:->SHORTNESS OF BREATH [facility] : 1960 Sex: FFINAL [...] (BEAKER) (test code = 2801) VITAMIN D, [id number] 11:46:00 Test Item Value Reference Range Interpretation Comments VITAMIN D 25-OH (BEAKER) (test 15.9 ng/mL 6.6-49.9 code = 2764) Effective 09/08/2017: Reference Range ChangeNew: 6.6-49.9 ng/mL Previous: 13.0- 47.8 ng/mLRecommendedVitamin D Target Range: 30.0-40.0 ng/mLOperator [facility] FBASIC METABOLIC [id number] 11:28:00 Test Item Value Reference Range Interpretation [...] S NOT APPLICABLE FOR DIALYSIS PATIEN TS. Claim Attorney ID - [place] FB-TYPE NATRIURETIC FACTOR (BNP)2020-11-15 14:51:00 Test Item Value Reference Range Interpretation Comments B-TYPE NATRIURETIC PEPTIDE (BEAKER) 119 pg/mL 0-100 H (test code = 700) TSH/FREE T4 IF [id number] 12:42:00 Test Item Value Reference Range Interpretation Comments THYROID STIMULATING HORMONE 2.524 uIU/mL 0.350-4.940 (BEAKER) (test code = 772) Claim Attorney ID - ADMINVITAMIN B12 AND [id number] 12:42:00 Test Item Value Reference Range Interpretation Comments VITAMIN B12 (BEAKER) (test code = 307 pg/mL 213-816 774) FOLATE (BEAKER) (test code = 362) 11.90 ng/mL >=7.00 Claim Attorney ID - ADMINHEMOGLOBIN [id number] 12:22:00 Test Item Value Reference Range Interpretation [...] % 20-55 L (test code = 2590) Claim Attorney ID - ADMINCOMPREHENSIVE METABOLIC [id number] 11:41:00 Test Item Value Reference Range Interpretation [...] S NOT APPLICABLE FOR DIALYSIS PATIEN TS. Claim Attorney ID - PIAYA LCBC W/PLT COUNT & AUTO [id number] 11:22:00 Test Item Value Reference Range Interpretation [...] (test code = 134 mmol/L 135-145 L 4340179181) K (test code = 5.6 mmol/L 3.5-5 H 8524952717) CL (test code = 99 mmol/L 98-108 7102580794) CO2 TOTAL (test code = 26 mmol/L 23-31 0303963504) AGAP (test code = 2-16 5181078182) BUN (test code = 30 mg/dL 7-23 H 8460810064) GLUCOSE (test code = 337 mg/dL 70-110 H 3365049168) CREATININE (test code = 1.41 mg/dL 0.5-1.04 H 3148860593) CALCIUM (test code = 9.0 mg/dL 8.6-10.6 2197910680) eGFR Calculation mL/min/1.73m2 (Non-) (test code = 7058715542) eGFR Calculation mL/min/1.73m2 () (test code = 8980293039) ANTHONY (test code = ANTHONY) Association of [...] tests). Lab Interpretation Abnormal (test code = 75627-7) [facility] CenterCT, EXTREMITY, LOWER WITHOUT CONTRAST, RIGHT 2020-07-29 15:05:00Unlisted [...] Thang Obrien Verified Date/Time: 07/29/2020 15:05:00 Reading Location:[address] Consult Reading Room POCT-GLUCOSE [id number] 12:07:00 Test Item Value Reference Range Interpretation Comments POC-GLUCOSE METER 259 mg/dL 70-110 H : TESTED A T [facility] 6720 ([facility]) (test code = [facility], 1538) 22101: Claim Attorney/Techni kate ID = [id number] for QU ARTRANJITH, [place] POCT-GLUCOSE [id number] 08:02:00 Test Item Value Reference Range Interpretation Comments POC-GLUCOSE METER 206 mg/dL 70-110 H : TESTED A T [facility] 6720 (BEAKER) (test code = [facility], 1538) 67445: Claim Attorney/Techni kate ID = [id number] for QU ARTMAN, [place] [id number] 05:38:00 Test Item Value Reference Range Interpretation Comments PHOSPHORUS (BEAKER) (test code = 2.8 mg/dL 2.3-4.7 604) Claim Attorney ID - AMIRAH [id number] 05:38:00 Test Item Value Reference Range Interpretation Comments MAGNESIUM (BEAKER) (test code = 1.8 mg/dL 1.6-2.6 627) Claim Attorney ID - AMIRAH MCOMPREHENSIVE METABOLIC [id number] 05:38:00 Test Item Value Reference Range Interpretation [...] S NOT APPLICABLE FOR DIALYSIS PATIEN TS. Claim Attorney ID - AMIRAH MB-TYPE NATRIURETIC FACTOR (BNP)2020-07-20 05:34:00 Test Item Value Reference Range Interpretation Comments B-TYPE NATRIURETIC PEPTIDE (BEAKER) 213 pg/mL 0-100 H (test code = 700) Claim Attorney ID - AMIRAH MCBC W/PLT COUNT & AUTO [id number] 05:16:00 Test Item Value Reference Range Interpretation [...] PERCENT (BEAKER) (test code = 2801) CALCIUM, [id number] 04:56:00 Test Item Value Reference Range Interpretation Comments CALCIUM IONIZED (BEAKER) (test 1.16 mmol/L 1.12-1.27 code = 698) PH, BLOOD (BEAKER) (test code = 7.37 1810) POCT-GLUCOSE [id number] 21:18:00 Test Item Value Reference Range Interpretation Comments POC-GLUCOSE METER 333 mg/dL 70-110 H : TESTED A T [facility] 6720 (BEAKER) (test code = [facility], 1538) 95896: Claim Attorney/Techni kate ID = [id number] for MAYELA DEMARCO POCT-GLUCOSE [id number] 17:10:00 Test Item Value Reference Range Interpretation Comments POC-GLUCOSE METER 286 mg/dL 70-110 H : TESTED A T [facility] 6720 (BEAKER) (test code = [facility], 1538) 10605: Claim Attorney/Techni kate ID = [id number] for [place] [id number] 14:08:00 Test Item Value Reference Range Interpretation Comments PHOSPHORUS (BEAKER) (test code = 2.9 mg/dL 2.3-4.7 604) Claim Attorney ID - [id number] 14:08:00 Test Item Value Reference Range Interpretation Comments MAGNESIUM (BEAKER) (test code = 1.9 mg/dL 1.6-2.6 627) Claim Attorney ID - NTPBASIC METABOLIC [id number] 14:08:00 Test Item Value Reference Range Interpretation [...] S NOT APPLICABLE FOR DIALYSIS PATIEN TS. Claim Attorney ID - NTPCALCIUM, [id number] 13:10:00 Test Item Value Reference Range Interpretation Comments CALCIUM IONIZED (BEAKER) (test 1.15 mmol/L 1.12-1.27 code = 698) PH, BLOOD (BEAKER) (test code = 7.37 1810) CBC W/PLT COUNT & AUTO [id number] 13:10:00 Test Item Value Reference Range Interpretation [...] PERCENT (BEAKER) (test code = 2801) POCT-GLUCOSE [id number] 12:39:00 Test Item Value Reference Range Interpretation Comments POC-GLUCOSE METER 152 mg/dL 70-110 H : [facility] ([facility]) (test code = [facility], 1538) 912[address]: Claim Attorney/Techni kate ID = [id number] for [place] POCT-GLUCOSE [id number] 10:52:00 Test Item Value Reference Range Interpretation Comments POC-GLUCOSE METER 164 mg/dL 70-110 H : TESTED A T [facility] 6720 (BEAKER) (test code = [facility], 1538) 35158: Claim Attorney/Techni kate ID = [id number] for IRINEO ROONEY [id number] 09:42:00 Test Item Value Reference Range Interpretation Comments ACTIVATED CLOTTING TIME 219 sec : 74 -137 seconds, (BEAKER) (test code = nAdrew ne: TESTED AT 441) [facility] 67[address] [facility], 770 30: Claim Attorney/Techni kate ID = [id number] for MARINO OLMEDO [id number] 08:51:00 Test Item Value Reference Range Interpretation Comments ACTIVATED CLOTTING TIME 263 sec : 74 -137 seconds, (BEAKER) (test code = Zarii ne: TESTED AT 441) [facility] [address] [place], 770 30: Claim Attorney/Techni kate ID = [id number] for MARINO OLMEDO SARS-COV2/RT-PCR ([facility]2020-07-19 00:30:00 Test Item Value Reference Range Interpretation Comments SARS-COV2/RT-PCR (test Negative Not Detected, Negative, code = 6096356) See external report for linked test SARS-COV-2 PERFORMING LAB [facility] KAY (test code = 1527232) Negative result for this test determines that [...] of the Act.Fact Sheet for Healthcare Prov iders:https://www.Idea.me.[employer]/sites/default/files/product/documents/Fact_Sheet_HC _Vzykqdiba_Ylrf_EDZO-CcS-5.pdfFact Sheet for Healthcare Patients:https://www.Idea.me.[employer]/sites/default/files/product/docume nts/Dldw_Etxfx_Hptukujz_Qkpv_JZUI-QyF-1.pdfPerforming Laboratory:[facility], [place] [address]TQOI-XWUUUUZ METER 2020-07-18 21:25:00 Test Item Value Reference Range Interpretation Comments POC-GLUCOSE METER 111 mg/dL 70-110 H : TESTED A T [facility] 6720 (BEAKER) (test code = TRELLAZ De[place] [facility], 1538) [address]: Claim Attorney/Techni kate ID = [id number] for LORI CALLAHAN POCT-GLUCOSE [id number] 16:05:00 Test Item Value Reference Range Interpretation Comments POC-GLUCOSE METER 265 mg/dL 70-110 H : TESTED A T [facility] 6720 (BEAKER) (test code = [facility] [place] [facility], 153) [address]: Claim Attorney/Techni kate ID = [id number] for QUEEN WHITING [id number] 15:06:00 Test Item Value Reference Range Interpretation Comments PARTIAL THROMBOPLASTIN TIME 57.6 seconds 22.5-36.0 H (BEAKER) (test code = 760) POCT-GLUCOSE [id number] 11:35:00 Test Item Value Reference Range Interpretation Comments POC-GLUCOSE METER 255 mg/dL 70-110 H : TESTED A T [facility] 6720 (BEAKER) (test code = [facility] [place] [facility], 153) 56[address]: Claim Attorney/Techni kate ID = [id number] for QUEEN WHITING CT, [id number] 09:48:00Unlisted Reason for Exam - Click Yes [...] be obtained for further evaluation. Signed: Steven Beniteseport Verified Date/Time: 07/18/2020 09:48:22 Reading Location: [address] Radiology Reading RoomAddendum EndsFINAL REPORT CT [...] be dictatedregarding the non-vascular findings by the Supervisor Soakers Radiologist. Pertinent findings were discussedwith the Supervisor Soakers [employer] at the time of dictation. Signed: Trenton Schafer Verified Date/Time: 07/17/2020 17:23:49 Reading Location: [place] [address] [place] Reading Room CALCIUM, IONIZED 2020-07-18 08:20:00 Test Item Value Reference Range Interpretation Comments CALCIUM IONIZED (BEAKER) (test 1.15 mmol/L 1.12-1.27 code = 698) PH, BLOOD (BEAKER) (test code = 7.34 1810) POCT-GLUCOSE [id number] 08:01:00 Test Item Value Reference Range Interpretation Comments POC-GLUCOSE METER 184 mg/dL 70-110 H : [facility] (BEAKER) (test code = [place], 1538) [address]: Claim Attorney/Techni kate ID = [id number] for QUEEN WHITING CBC W/PLT COUNT & AUTO [id number] 07:17:00 Test Item Value Reference Range Interpretation [...] 0-1 PERCENT (BEAKER) (test code = 2801) [id number] 07:07:00 Test Item Value Reference Range Interpretation Comments PHOSPHORUS (BEAKER) (test code = 3.0 mg/dL 2.3-4.7 604) Claim Attorney ID - [id number] 07:07:00 Test Item Value Reference Range Interpretation Comments MAGNESIUM (BEAKER) (test code = 1.8 mg/dL 1.6-2.6 627) Claim Attorney ID - EDASICOMPREHENSIVE METABOLIC [id number] 07:07:00 Test Item Value Reference Range Interpretation [...] S NOT APPLICABLE FOR DIALYSIS PATIEN TS. Claim Attorney ID - [id number] 06:26:00 Test Item Value Reference Range Interpretation Comments PARTIAL THROMBOPLASTIN TIME 60.2 seconds 22.5-36.0 H (BEAKER) (test code = 760) While on warfarin.PROTHROMBIN TIME/[id number] 06:24:00 Test Item Value Reference Range Interpretation [...] for patients wiht mechanical heart valves.While on warfarin.[id number] 23:06:00 Test Item Value Reference Range Interpretation Comments PARTIAL THROMBOPLASTIN TIME 49.8 seconds 22.5-36.0 H (BEAKER) (test code = 760) [id number] 21:00:00 Test Item Value Reference Range Interpretation Comments PARTIAL THROMBOPLASTIN TIME 117.2 seconds 22.5-36.0 H (BEAKER) (test code = 760) POCT-GLUCOSE [id number] 20:08:00 Test Item Value Reference Range Interpretation Comments POC-GLUCOSE METER 182 mg/dL 70-110 H : TESTED A T [facility] 6720 (BEAKER) (test code = [employer] [facility], 1538) [address]: Claim Attorney/Techni kate ID = [id number] for KHALIDA OLIVEIRA POCT-GLUCOSE [id number] 15:38:00 Test Item Value Reference Range Interpretation Comments POC-GLUCOSE METER 233 mg/dL 70-110 H : TESTED A T [facility] 6720 (BEAKER) (test code = [facility] [employer] [facility], 1538) [address]: Claim Attorney/Techni kate ID = [id number] for QUEEN WHITING [id number] 12:55:00 Test Item Value Reference Range Interpretation Comments PARTIAL THROMBOPLASTIN TIME 98.3 seconds 22.5-36.0 H (BEAKER) (test code = 760) POCT-GLUCOSE [id number] 11:33:00 Test Item Value Reference Range Interpretation Comments POC-GLUCOSE METER 253 mg/dL 70-110 H : TESTED A T [facility] 6720 (BEAKER) (test code = MENA [employer]ons [facility], 1538) [address]: Claim Attorney/Techni kate ID = [id number] for QUEEN WHITING POCT-GLUCOSE [id number] 07:41:00 Test Item Value Reference Range Interpretation Comments POC-GLUCOSE METER 203 mg/dL 70-110 H : TESTED A T [facility] 6720 (BEAKER) (test [facility] = [facility], 1538) [address]: Claim Attorney/Techni kate ID = [id number] for QUEEN WHITING URIC [id number] 07:18:00 Test Item Value Reference Range Interpretation Comments URIC ACID (BEAKER) (test code = 9.5 mg/dL 2.6-7.2 H 773) Claim Attorney ID - [id number] 07:18:00 Test Item Value Reference Range Interpretation Comments MAGNESIUM (BEAKER) (test code = 1.8 mg/dL 1.6-2.6 627) Claim Attorney ID - [id number] 07:18:00 Test Item Value Reference Range Interpretation Comments PHOSPHORUS (BEAKER) (test code = 3.2 mg/dL 2.3-4.7 604) Claim Attorney ID - NTPCOMPREHENSIVE METABOLIC [id number] 07:18:00 Test Item Value Reference Range Interpretation [...] S NOT APPLICABLE FOR DIALYSIS PATIEN TS. Claim Attorney ID - NTPCREATINE KINASE (CK)2020-07-17 07:18:00 Test Item Value Reference Range Interpretation Comments CREATINE KINASE TOTAL (BEAKER) (test 48 U/L 29-200 code = 380) Claim Attorney ID - NTPB-TYPE NATRIURETIC FACTOR (BNP)2020-07-17 07:05:00 Test Item Value Reference Range Interpretation Comments B-TYPE NATRIURETIC PEPTIDE (BEAKER) 55 pg/mL 0-100 (test code = 700) Claim Attorney ID - NTPCALCIUM, [id number] 06:53:00 Test Item Value Reference Range Interpretation Comments CALCIUM IONIZED (BEAKER) (test 1.17 mmol/L 1.12-1.27 code = 698) PH, BLOOD (BEAKER) (test code = 7.33 1810) [id number] 06:41:00 Test Item Value Reference Range Interpretation Comments PARTIAL THROMBOPLASTIN TIME 84.5 seconds 22.5-36.0 H (BEAKER) (test code = 760) While on warfarin.PROTHROMBIN TIME/[id number] 06:40:00 Test Item Value Reference Range Interpretation [...] valves.While on warfarin.CBC W/PLT COUNT & AUTO [id number] 06:34:00 Test Item Value Reference Range Interpretation [...] 0-1 PERCENT (BEAKER) (test code = 2801) [id number] 23:42:00 Test Item Value Reference Range Interpretation Comments PARTIAL THROMBOPLASTIN TIME 68.6 seconds 22.5-36.0 H (BEAKER) (test code = 760) POCT-GLUCOSE [id number] 20:54:00 Test Item Value Reference Range Interpretation Comments POC-GLUCOSE METER 206 mg/dL 70-110 H : TESTED A T [facility] 6720 (BEAKER) (test code = MENA Clemons [facility], 1538) [address]: Claim Attorney/Techni kate ID = [id number] for BELLA, FREDDIE TTE U/S, RENAL, [id number] 20:34:00Reason for exam:->AKIFINAL REPORT Ultrasound of the [...] otherwise unremarkable. Impression: No hydronephrosis. Signed: Kiki Burden Verified Date/Time: 07/16/2020 20:34:22 CREATININE, RANDOM [id number] 18:48:00 Test Item Value Reference Range Interpretation Comments CREATININE URINE (BEAKER) (test 180.8 mg/dL code = 375) Reference Range: No NormalsOperator ID - ASPROTEIN, RANDOM [id number] 18:48:00 Test Item Value Reference Range Interpretation Comments PROTEIN, URINE (BEAKER) (test code = 27 mg/dL 0-14 H 1569) Claim Attorney ID - ASSODIUM, RANDOM [id number] 18:48:00 Test Item Value Reference Range Interpretation Comments SODIUM URINE (BEAKER) (test code = 28 meq/L 243) Reference Range: No NormalsOperator ID - ASURINALYSIS W/ [id number] 17:19:00 Test Item Value Reference Range Interpretation [...] /LPF 514) SOURCE(BEAKER) (test code = 2795) Claim Attorney ID - [auto]Claim Attorney ID - [id number] 17:07:00 Test Item Value Reference Range Interpretation Comments PARTIAL THROMBOPLASTIN TIME 88.9 seconds 22.5-36.0 H (BEAKER) (test code = 760) POCT-GLUCOSE [id number] 16:59:00 Test Item Value Reference Range Interpretation Comments POC-GLUCOSE METER 199 mg/dL 70-110 H : TESTED A T [facility] 6720 (BEAKER) (test code = MENA Clemons [facility], 1538) [address]: Claim Attorney/Techni kate ID = [id number] for BAHMAN KNAPP RAD, CHEST, 1 VIEW, NON [id number] 15:56:00Reason for exam:->Fluid overloadShould this be performed at the bedside?->YesFINAL REPORT CLINICAL HISTORY: Fluid overload TECHNIQUE: 1 view of the chest. C OMPARISON: 02/25/2017 IMPRESSION: There are no focal infiltrates or effusions. The cardiomediastinal silhouette is magnified by technique. The osseous structures appear intact. Signed: Petar Crowley Verified Date/Time: 07/16/2020 15:56:06 Reading Location: [facility] Radiology Reading Room E lectronically signed by: PETAR CROWLEY M.D. on 07/16/2020 03:56 PMPOCT-GLUCOSE [id number] 13:35:00 Test Item Value Reference Range Interpretation Comments POC-GLUCOSE METER 249 mg/dL 70-110 H : TESTED A T [facility] 6720 (BEAKER) (test code = MENA Clemons [facility], 1538) [address]: Claim Attorney/Techni kate ID = [id number] for YENIFER MOSLEY P[facility] PERF IMAGING, [id number] 11:47:00Unlisted Reason for Exam - Click Yes and Enter Reason Below->Yes Unlisted Reason for Exam->Positive extensive LLE DVT, dyspneaFINAL REPORT PROCEDURE: LUNG SCAN - perfusion only CPT CODE: 81157 INDICATION:PE suspected, high pretest probability, positive DVT, treated [...] Maynard Verified Date/Time: 07/16/2020 11:47:57 Reading Location: [address] [address] Reading Room HEMOGLOBIN [id number] 11:33:00 Test Item Value Reference Range Interpretation Comments HEMOGLOBIN A1C (BEAKER) (test code = 9.6 % 4.3-6.1 H 368) [id number] 09:43:00 Test Item Value Reference Range Interpretation Comments PARTIAL THROMBOPLASTIN TIME 91.3 seconds 22.5-36.0 H (BEAKER) (test code = 760) [id number] 08:48:00 Test Item Value Reference Range Interpretation Comments PARTIAL THROMBOPLASTIN TIME > seconds 22.5-36.0 HH (BEAKER) (test code = 760) POCT-GLUCOSE [id number] 07:50:00 Test Item Value Reference Range Interpretation Comments POC-GLUCOSE METER 179 mg/dL 70-110 H : TESTED A T [facility] 6720 (BEAKER) (test code = [place], 1538) [address]: Claim Attorney/Techni kate ID = [id number] for BAHMAN KNAPP BASIC METABOLIC [id number] 06:44:00 Test Item Value Reference Range Interpretation [...] S NOT APPLICABLE FOR DIALYSIS PATIEN TS. Claim Attorney ID - [id number] 06:36:00 Test Item Value Reference Range Interpretation Comments PARTIAL THROMBOPLASTIN TIME > seconds 22.5-36.0 HH (BEAKER) (test code = 760) PROTHROMBIN [id number] 06:17:00 Test Item Value Reference Range Interpretation [...] heparinWhile on warfarin.CBC W/PLT COUNT & AUTO [id number] 05:37:00 Test Item Value Reference Range Interpretation [...] (BEAKER) (test code = 413) CREATININE, RANDOM [id number] 04:55:00 Test Item Value Reference Range Interpretation Comments CREATININE URINE (BEAKER) (test 135.0 mg/dL code = 375) Reference Range: No NormalsOperator ID - DBSODIUM, RANDOM [id number] 04:55:00 Test Item Value Reference Range Interpretation [...] I S NOT APPLICABLE FOR DIALYSIS PATIEN DENYS. Claim Attorney ID - [id number] 15:22:00 Test Item Value Reference Range Interpretation Comments PARTIAL THROMBOPLASTIN TIME 27.9 seconds 22.5-36.0 (BEAKER) (test code = 760) PROTHROMBIN [id number] 15:21:00 Test Item Value Reference Range Interpretation [...] mechanical heart valves.CBC W/PLT COUNT & AUTO [id number] 15:16:00 Test Item Value Reference Range Interpretation [...] PERCENT (BEAKER) (test code = 2801) Potassium [id number] 13:11:00 Test Item Value Reference Range Interpretation Comments K (test code = 0401156446) 4.9 mmol/L 3.5-5 Lab Interpretation (test code = Normal 63143-7) [id number] 12:32:00 Test Item Value Reference Range Interpretation Comments POCT Glu (age>30days) (test code = 156 mg/dL 70-110 A 3342) Lab Interpretation (test code = Abnormal 63326-6) [facility] [id number] 14:11:00 Test Item Value Reference Range Interpretation Comments HEMOGLOBIN A1C (BEAKER) (test code = 9.4 % 4.3-6.1 H 368) TSH/FREE T4 IF [id number] 12:24:00 Test Item Value Reference Range Interpretation Comments THYROID STIMULATING HORMONE 1.808 uIU/mL 0.350-4.940 (BEAKER) (test code = 772) Claim Attorney ID - ADMINLIPID [id number] 12:05:00 Test Item Value Reference Range Interpretation [...] Borderline 130-159 High 160-189 Very High >=190 Claim Attorney ID - ADMINCOMPREHENSIVE METABOLIC [id number] 12:05:00 Test Item Value Reference Range Interpretation [...] S NOT APPLICABLE FOR DIALYSIS PATIEN TS. Claim Attorney ID - ADMINHEMOGLOBIN [id number] 12:22:00 Test Item Value Reference Range Interpretation Comments HEMOGLOBIN A1C (BEAKER) (test code = 8.2 % 4.3-6.1 H 368) TSH/FREE T4 IF [id number] 11:50:00 Test Item Value Reference Range Interpretation Comments THYROID STIMULATING HORMONE 2.52 uIU/mL 0.35-4.94 (BEAKER) (test code = 772) COMPREHENSIVE METABOLIC [id number] 11:34:00 Test Item Value Reference Range Interpretation [...] PATIEN TS. CBC W/PLT COUNT & AUTO [id number] 11:15:00 Test Item Value Reference Range Interpretation [...] (BEAKER) (test code = 2801) BASIC METABOLIC [id number] 13:57:00 Test Item Value Reference Range Interpretation [...] PATIEN TS. CBC W/PLT COUNT & AUTO [id number] 13:35:00 Test Item Value Reference Range Interpretation [...] PERCENT (BEAKER) (test code = 2801) HEMOGLOBIN [id number] 13:45:00 Test Item Value Reference Range Interpretation Comments HEMOGLOBIN A1C (BEAKER) (test code = 7.9 % 4.3-6.1 H 368) TSH/FREE T4 IF [id number] 12:54:00 Test Item Value Reference Range Interpretation Comments THYROID STIMULATING HORMONE 2.71 uIU/mL 0.35-4.94 (BEAKER) (test code = 772) LIPID [id number] 11:16:00 Test Item Value Reference Range Interpretation [...] 130-159 High 160-189 Very High >=190COMPREHENSIVE METABOLIC [id number] 11:16:00 Test Item Value Reference Range Interpretation [...] PATIEN TS. CBC W/PLT COUNT & AUTO [id number] 10:52:00 Test Item Value Reference Range Interpretation [...] PERCENT (BEAKER) (test code = 2801) HEMOGLOBIN [id number] 11:30:00 Test Item Value Reference Range Interpretation Comments HEMOGLOBIN A1C (BEAKER) (test code = 8.5 % 4.3-6.1 H 368) HEMOGLOBIN [id number] 13:33:00 Test Item Value Reference Range Interpretation Comments HEMOGLOBIN A1C (BEAKER) (test code = 10.9 % 4.3-6.1 H 368) TSH/FREE T4 IF [id number] 12:27:00 Test Item Value Reference Range Interpretation Comments THYROID STIMULATING HORMONE 2.33 uIU/mL 0.35-4.94 (BEAKER) (test code = 772) LIPID [id number] 12:10:00 Test Item Value Reference Range Interpretation [...] 130-159 High 160-189 Very High >=190COMPREHENSIVE METABOLIC [id number] 12:10:00 Test Item Value Reference Range Interpretation [...] NOT APPLICABLE FOR DIALYSIS PATIEN TS. HEMOGLOBIN [id number] 13:44:00 Test Item Value Reference Range Interpretation Comments HEMOGLOBIN A1C (BEAKER) (test code = 10.8 % 4.3-6.1 H 368) HEMOGLOBIN [id number] 09:58:00 Test Item Value Reference Range Interpretation Comments HEMOGLOBIN A1C (BEAKER) (test code = 8.3 % 4.3-6.1 H 368) TSH/FREE T4 IF [id number] 13:49:00 Test Item Value Reference Range Interpretation Comments THYROID STIMULATING HORMONE 1.94 uIU/mL 0.35-4.94 (BEAKER) (test code = 772) HEMOGLOBIN [id number] 12:27:00 Test Item Value Reference Range Interpretation Comments HEMOGLOBIN A1C (BEAKER) (test code = 11.3 % 4.3-6.1 H 368) LIPID [id number] 11:56:00 Test Item Value Reference Range Interpretation [...] 130-159 High 160-189 Very High >=190COMPREHENSIVE METABOLIC [id number] 11:56:00 Test Item Value Reference Range Interpretation [...] S NOT APPLICABLE FOR DIALYSIS PATIEN TS. [id number] 09:01:00 Test Item Value Reference Range Interpretation [...] 95-100% range. CREATINE KINASE (CK), TOTAL AND [id number] 09:01:00 Test Item Value Reference Range Interpretation Comments CREATINE KINASE TOTAL (BEAKER) 43 U/L 29-200 (test code = 380) CREATINE KINASE-MB (BEAKER) (test 0.7 ng/mL 0.0-6.6 code = 750) CREATINE KINASE-MB INDEX (BEAKER) 1.6 % (test code = 395) Effective 10/16/2014: CK-MB Reference Range ChangeNew: 0.0-6.6 Previous: 0.0-4.9CK-MB Reference Range:<6.7 Normal6.7-10.0 Borderline>10.0 Abnormal TROPONIN [id number] 09:01:00 Test Item Value Reference Range Interpretation [...] acute neurological disease, and persistent tachyarrhythmia.BASIC METABOLIC [id number] 08:53:00 Test Item Value Reference Range Interpretation [...] PATIEN TS. CBC W/PLT COUNT & AUTO [id number] 08:30:00 Test Item Value Reference Range Interpretation [...]
--- NOTE | 2023-10-27 11:16 | RAD REPORT ---
EXAM DESCRIPTION: CT - Abdomen Pelvis Wo Contrast - 10/27/2023 10:59 am CLINICAL HISTORY: Abdominal pain COMPARISON: June 2020. TECHNIQUE: Computed axial tomography of the abdomen and pelvis was obtained. IV and oral contrast we re not requested. All CT scans are performed using dose optimization technique as appropriate and may include automated exposure control or mA/KV adjustment according to patient size. FINDINGS: The evaluation of solid organs, vessels and bowel is limited secondary to the lack of con trast administration. Small pericardial effusion Cholecystectomy The liver, spleen, pancreas, adrenals and kidneys appear grossly normal. No evidence of diverticulitis. Calcified uterine fibroids. No adnexal mass. Normal appendix IMPRESSION: Small pericardial effusion No acute abnormality involving the abdomen/pelvis
[2023-10-27 11:30] LABS: Absolute Lymphocytes (CBC) 1.4 K/uL (0.7-4.9); Hematocrit 39.4 % (36.0-45.0); Lymphocytes % 18.1 % (15.3-44.8); MCV 86.4 fL (80-100); Platelets 226 thou/uL (152-406); RBC Red Blood Cell Count 4.56 M/uL (3.86-4.86)
[2023-10-27] MEDS ORDERED: NA CHLORIDE 0.9% 1,000 ML ONE (11:33)
[2023-10-27 11:53] LABS: Specific Gravity 1.021 (1.005-1.030); Transitional Epithelial <5 /HPF (None Seen); Urine Bacteria <20 /HPF (<20); Urine Bilirubin NEGATIVE (Negative); Urine Blood 1+ (Negative); Urine Clarity Extremely Turbid (Clear); Urine Color Yellow (Yellow); Urine Glucose 1+ (Negative); Urine Mucus Slight /HPF (None Seen); Urine Protein 2+ (Negative); Urine Urobilinogen 1+ (Normal); Urine pH 5.5 (5.0-7.0)
[2023-10-27 12:18] LABS: Albumin 3.5 g/dL (3.4-5.0); Bilirubin Total 0.8 mg/dL (0.2-1.0); Potassium 3.5 mEq/L (3.5-5.1); Protein, Total 8.6 g/dL (6.4-8.2)
--- NOTE | 2023-10-27 12:36 | RAD REPORT ---
EXAM DESCRIPTION: RADChest Single View10/27/2023 12:29 pm CLINICAL HISTORY: weaknes COMPARISON: Chest Single View dated 03/28/2021; Chest Single View dated 06/04/2019; Chest Pa And Lat (2 Views) dated 10/03/2017; CHEST SINGLE VIEW dated 12/29/2015 TECHNIQUE: Portable AP view of the chest. FINDINGS: The lungs are clear. Prominence of the central vasculature and mild central interstitial p ain mildly progressive since the prior exam. No pneumothorax or effusion. Mild cardiomegaly. Mediasti nal contours are unremarkable. IMPRESSION: Findings suggestive of mild central congestion or CHF. No evidence of focal airspace opa city.
--- NOTE | 2023-10-27 14:10 | EDPHYS ---
Physician Documentation [facility] Name: Terese Alaniz Age: 63 yrs Sex: Female : 1960 Arrival Date: 10/27/2023 Time: : Bed 19 Private MD: ED Physician Akash Bolanos HPI: 10/27 13:55 This 63 yrs old Female presents to ER via Wheelchair with complaints of kb Abdominal Pain, Dizziness, Weakness. 13:55 Patient is a 63-year-old female with a history of CHF, diabetes, high cholesterol, kb hypertension and chronic renal disease who presents for lower abdominal pain, diarrhea, weakness, shortness of breath that started yesterday. Denies fever, nausea, vomiting, chest pain.. Historical: - Allergies: 10:41 No Known Allergies; aa5 - PMHx: 10:41 CHF; Diabetes - IDDM; High Cholesterol; Hypertension; aa5 ROS: 13:54 Constitutional: Negative for fever, chills, and weight loss, kb 13:54 Respiratory: Positive for shortness of breath, 13:54 Abdomen/GI: Positive for abdominal pain, diarrhea, 13:54 Neuro: Positive for weakness, 13:54 All other systems are negative, Exam: 13:54 Constitutional: This is a well developed, well nourished patient who is awake, alert, kb and in no acute distress. Head/Face: Normocephalic, atraumatic. ENT: Moist Mucous membranes Cardiovascular: Regular rate Respiratory: Respirations even and unlabored. No increased work of breathing. Talking in full sentences Skin: Warm, dry with normal turgor. Normal color. MS/ Extremity: Pulses equal, no cyanosis. Neurovascular intact. Full, normal range of motion. Neuro: Awake and alert, GCS 15, oriented to person, place, time, and situation. Moves all extremities. Normal gait. 13:54 Abdomen/GI: Inspection: abdomen appears normal, Bowel sounds: normal, Palpation: soft, in all quadrants, mild abdominal tenderness, in the right lower quadrant and left lower quadrant, Vital Signs: 10:40 BP 94 / 64; Pulse 52; Resp 18 S; Temp 97.7(TE); Pulse Ox 98% on R/A; Weight 108.86 kg aa5 (R); Height 5 ft. 3 in. (R); 11:51 BP 120 / 70; Pulse 64; Resp 20 S; Pulse Ox 93% on R/A; kc6 13:07 BP 117 / 76; Pulse 62; Resp 17 S; Pulse Ox 97% on R/A; kc6 14:20 BP 105 / 72; Pulse 70; Resp 20 S; Pulse Ox 97% on R/A; kc6 10:40 Body Mass Index 42.51 (108.86 kg, 160.02 cm) aa5 MDM: 10:38 Patient medically screened. kb 13:52 Differential diagnosis: flu, covid, dehydration, electrolyte imbalance, diverticulitis, kb colitis. Data reviewed: vital signs, nurses notes. Consideration of Admission/Observation Escalation of care including admission/observation considered. 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 Counseling: I had a detailed discussion with the patient and/or guardian regarding the historical points, exam findings, and any diagnostic results supporting the discharge/admit diagnosis, lab results, radiology results, the need to transfer to another facility, for higher level of care. 13:56 ED course: Patient is a 63-year-old female with a history of diabetes, CHF, high kb cholesterol, hypertension, chronic renal disease who presents with lower abdominal pain, diarrhea, weakness and shortness of breath that started yesterday. On exam patient has mild lower abdominal tenderness. CT scan revealed small pericardial effusion otherwise no acute findings. Cardiac labs, EKG and chest x-ray added to work-up at that time. Troponin and BNP elevated, EKG shows heart block and chest x-ray reveals mild CHF. Discussed case with Dr. Stanford who recommends transfer for higher level of care, states patient needs an urgent heart cath and possible placement. Transfer initiated to [facility]. 14:10 Management of patient was discussed with the following: Dr Espinosa at [facility] accepts pt kb for transfer to CCU. Discussion of test interpretation with radiology: I had a discussion with radiology regarding a test interpretation. Discussed pericardial effusion finding with Dr Doss, not present on CT in June. Care significantly affected by the following chronic conditions: Hypertension, Congestive Heart Failure, Chronic Kidney Disease. 10/27 10:42 Order name: Flu; Complete Time: 12:09 kb 10/27 10:42 Order name: COVID-19 SARS RT PCR; Complete Time: 12:35 kb 10/27 10:42 Order name: CBC with Diff; Complete Time: 11:44 kb 10/27 10:42 Order name: CMP; Complete Time: 12:19 kb 10/27 10:42 Order name: Lipase; Complete Time: 12:19 kb 10/27 10:42 Order name: Urinalysis w/ reflexes; Complete Time: 11:54 kb 10/27 11:53 Order name: Troponin High Sensitivity; Complete Time: 13:11 kb 10/27 11:53 Order name: BNP; Complete Time: 13:11 kb 10/27 13:47 Order name: Ptt, Activated; Complete Time: 14:11 kc6 10/27 10:59 Order name: Abdomen ; Complete Time: 11:17 EDMS 10/27 11:53 Order name: Chest Single View XRAY; Complete Time: 12:37 kb 10/27 11:19 Order name: EKG; Complete Time: 11:19 kb 10/27 10:42 Order name: IV Saline Lock; Complete Time: 11:21 kb 10/27 10:42 Order name: Labs collected and sent; Complete Time: 11:21 kb 10/27 11:19 Order name: EKG - Nurse/Tech; Complete Time: 11:40 kb Administered Medications: 11:40 Drug: NS 0.9% IV 1000 ml IV at 1 bolus Per protocol; 1000 mL bolus Route: IV; Rate: 1 kc6 bolus; Site: left antecubital; 12:40 Follow up: Response: No adverse reaction; IV Status: Completed infusion; IV Intake: kc6 1000ml 12:40 Not Given (Physician Discretion): ns 0.9% 1000 ml IV at 100 ml/hr once kb 14:08 Drug: Heparin ([place]-Bolus No thrombolytic) - HEParin IVP 60 units/kg IVP once; Max 5000 kc6 units {Co-Signature: ko1 (Joan Cole RN).} Route: IVP; Site: left antecubital; 15:10 Follow up: Response: No adverse reaction kc6 14:08 Drug: Heparin ([place] Drip) 12 units/kg/[place] - ([place] [address] units, D5W IV 500 ml) IV at kc6 calculated rate Per protocol; Max initial rate 1000 units/hr {Co-Signature: ko1 (Joan Cole RN).} Route: IV; Rate: calculated rate; Site: left antecubital; 15:10 Follow up: Response: No adverse reaction; IV Status: Infusion continued upon transfer; kc6 IV Intake: 500ml 14:17 Drug: Furosemide IVP 20 mg IVP once; give over 2 minutes Route: IVP; Site: left kc6 antecubital; 15:10 Follow up: Response: No adverse reaction kc6 14:17 Drug: Famotidine IVP 20 mg IVP once; dilute with 10 mL 0.9% NaCl; give over 2 minutes kc6 Route: IVP; Site: left antecubital; 15:11 Follow up: Response: No adverse reaction kc6 Disposition Summary: 10/27/23 14:10 Transfer Ordered Notes: Transfer Location: [facility] kb Reason: Higher level of care kb Condition: Serious kb Problem: new kb Symptoms: are unchanged kb Accepting Physician: Dr Espinosa(10/27/23 15:11) kc6 Diagnosis - Pericardial effusion (noninflammatory) kb - Complete Heart Block kb - NSTEMI kb - acute on chronic renal failure kb - Influenza B kb Forms: - Medication Reconciliation Form kb - SBAR form kb Critical care time excluding procedures: 14:11 Critical care time: Bedside Care: 15 minutes, Consultation: 10 minutes, Family kb Intervention: 10 minutes. Total time: 35 minutes Signatures: Dispatcher [employer] EDMS Sirisha Judd, STONE CUTTER-C STONE CUTTER-Ckb Kayla Castañeda RN RN aa5 Vicki Lion RN RN kc6 Joan Cole RN ko1 Corrections: (The following items were deleted from the chart) 10:59 10:42 Abdomen Pelvis W Con+CT.RAD.BRZ ordered. EDWV EDMS 15:11 14:10 Dr Espinosa kb kc6
--- NOTE | 2023-10-27 14:10 | ER ---
Nurse's Notes [facility] Name: Terese Alaniz Age: 63 yrs Sex: Female : 1960 Arrival Date: 10/27/2023 Time: : Bed 19 Private MD: Diagnosis: Pericardial effusion (noninflammatory);Complete Heart Block;NSTEMI;acute on chronic renal failure;Influenza B Presentation: 10/27 10:40 Chief complaint: Patient states: lower abd pain and diarrhea that began yesterday, pt aa5 also reports feeling weak and dizzy. Coronavirus screen: diarrhea. Ebola Screen: Patient denies travel to an Ebola-affected area in the 21 days before illness onset. Initial Sepsis Screen: Does the patient meet any 2 criteria? No. Patient's initial sepsis screen is negative. Does the patient have a suspected source of infection? No. Patient's initial sepsis screen is negative. Risk Assessment: Do you want to hurt yourself or someone else? Patient reports no desire to harm self or others. Onset of symptoms was September 2023. 10:40 Method Of Arrival: Wheelchair aa5 10:40 Acuity: VISHNU 3 aa5 Historical: - Allergies: 10:41 No Known Allergies; aa5 - PMHx: 10:41 CHF; Diabetes - IDDM; High Cholesterol; Hypertension; aa5 Screenin:[facility] ED Fall Risk Assessment (Adult) History of falling in the last 3 months, kc6 including since admission No falls in past 3 months (0 pts) Confusion or Disorientation No (0 pts) Intoxicated or Sedated No (0 pts) Impaired Gait No (0 pts) Mobility Assist Device Used No (0 pt) Altered Elimination No (0 pt) Score/Fall Risk Level 0 - 2 = Low Risk. Abuse screen: Denies threats or abuse. Denies injuries from another. Nutritional screening: No deficits noted. Tuberculosis screening: No symptoms or risk factors identified. Assessment: 11:50 General: Appears in no apparent distress. comfortable, obese, well groomed, Behavior is kc6 calm, cooperative, appropriate for age. Pain: Complains of pain in abdomen. Neuro: Level of Consciousness is awake, alert, obeys commands, Oriented to person, place, time, situation, Appropriate for age Reports dizziness, weakness. Cardiovascular: Denies chest pain, Heart tones S1 S2 present Capillary refill < 3 seconds Rhythm is sinus rhythm. Respiratory: Reports shortness of breath on exertion Airway is patent Trachea midline Respiratory effort is even, unlabored, Respiratory pattern is regular, symmetrical. GI: Abdomen is round non-distended, obese, Bowel sounds present X 4 quads. Abd is soft X 4 quads Reports diarrhea, Patient currently denies nausea, vomiting. : No signs and/or symptoms were reported regarding the genitourinary system. Urine is clear. EENT: No signs and/or symptoms were reported regarding the EENT system. Derm: No signs and/or symptoms reported regarding the dermatologic system. Skin is intact, is healthy with good turgor, Skin is pale. Musculoskeletal: No signs and/or symptoms reported regarding the musculoskeletal system. Circulation, motion, and sensation intact. Capillary refill < 3 seconds, Range of motion: intact in all extremities. 13:07 Reassessment: Patient appears in no apparent distress at this time. No changes from kc6 previously documented assessment. Patient and/or family updated on plan of care and expected duration. Pain level reassessed. Patient is alert, oriented x 3, equal unlabored respirations, skin warm/dry/pink. 14:19 Reassessment: Patient appears in no apparent distress at this time. No changes from kc6 previously documented assessment. Patient and/or family updated on plan of care and expected duration. Pain level reassessed. Patient is alert, oriented x 3, equal unlabored respirations, skin warm/dry/pink. attempted to call report to [facility]. asked that I call back so they can assign the nurse. Vital Signs: 10:40 BP 94 / 64; Pulse 52; Resp 18 S; Temp 97.7(TE); Pulse Ox 98% on R/A; Weight 108.86 kg aa5 (R); Height 5 ft. 3 in. (R); 11:51 BP 120 / 70; Pulse 64; Resp 20 S; Pulse Ox 93% on R/A; kc6 13:07 BP 117 / 76; Pulse 62; Resp 17 S; Pulse Ox 97% on R/A; kc6 14:20 BP 105 / 72; Pulse 70; Resp 20 S; Pulse Ox 97% on R/A; kc6 10:40 Body Mass Index 42.51 (108.86 kg, 160.02 cm) aa5 ED Course: 10:33 Patient arrived in ED. im 10:38 Sirisha Judd, VERA is PHCP. kb 10:38 Akash Bolanos MD is Attending Physician. kb 10:38 Arm band placed on. aa5 10:40 Triage completed. aa5 10:59 Abdomen In Process Unspecified. EDMS 11:15 Missed attempt(s): 20 gauge in right antecubital area. bc6 11:17 Vicki Lion, RN is Primary Nurse. kc6 11:21 CBC with Diff Sent. bc6 11:21 CMP Sent. bc6 11:21 Lipase Sent. bc6 11:22 Inserted saline lock: 20 gauge in left antecubital area, using aseptic technique. Blood bc6 collected. 11:51 Patient has correct armband on for positive identification. Bed in low position. Call kc6 light in reach. Side rails up X2. Adult w/ patient. Client placed on continuous cardiac and pulse oximetry monitoring. NIBP monitoring applied. clinical research monitor on. 11:51 Patient maintains SpO2 saturation greater than 95% on room air. kc6 12:31 Chest Single View XRAY In Process Unspecified. EDMS 13:07 Notified Nurse Practitioner and/or Physician Truck Sales Representative of a critical lab result(s), ll1 80,842.3 troponin. 13:[address] [facility]. bd 13:56 Ptt, Activated Sent. kc6 14:17 pt accepted in transfer to [facility] ccu [address] S [id number]spinosa, admin approval bd given by MATILDE Briceno. 14:33 Sandoval cath inserted, using sterile technique, 16 Fr., by wy, balloon inflated, to kc6 gravity drainage, clamped. returned clear yellow urine. Patient tolerated well. 15:09 No provider procedures requiring assistance completed. Patient transferred, IV remains kc6 in place. Administered Medications: 11:40 Drug: NS 0.9% IV 1000 ml IV at 1 bolus Per protocol; 1000 mL bolus Route: IV; Rate: 1 kc6 bolus; Site: left antecubital; 12:40 Follow up: Response: No adverse reaction; IV Status: Completed infusion; IV Intake: kc6 1000ml 12:40 Not Given (Physician Discretion): ns 0.9% 1000 ml IV at 100 ml/hr once kb 14:08 Drug: Heparin ([place]-Bolus No thrombolytic) - HEParin IVP 60 units/kg IVP once; Max 5000 kc6 units {Co-Signature: gail (Joan Cole RN).} Route: IVP; Site: left antecubital; 15:10 Follow up: Response: No adverse reaction kc6 14:08 Drug: Heparin ([place] Drip) 12 units/kg/[place] - ([place] [address] units, D5W IV 500 ml) IV at kc6 calculated rate Per protocol; Max initial rate 1000 units/hr {Co-Signature: ko1 (Joan Cole RN).} Route: IV; Rate: calculated rate; Site: left antecubital; 15:10 Follow up: Response: No adverse reaction; IV Status: Infusion continued upon transfer; kc6 IV Intake: 500ml 14:17 Drug: Furosemide IVP 20 mg IVP once; give over 2 minutes Route: IVP; Site: left kc6 antecubital; 15:10 Follow up: Response: No adverse reaction kc6 14:17 Drug: Famotidine IVP 20 mg IVP once; dilute with 10 mL 0.9% NaCl; give over 2 minutes kc6 Route: IVP; Site: left antecubital; 15:11 Follow up: Response: No adverse reaction kc6 Medication: 15:10 VIS not applicable for this client. kc6 Intake: 12:40 IV: 1000ml; Total: 1000ml. kc6 15:10 IV: 500ml; Total: 1500ml. kc6 Outcome: 14:10 ER care complete, transfer ordered by . cecil 15:[address] [facility], Transfer form completed. kc6 Note: report called to JEWELL Gao. pt transferred via life flight 15:09 Condition: stable 15:09 Instructed on the need for transfer, 15:11 Patient left the ED. kc6 Signatures: Dispatcher [employer] EDMS Sirisha Judd, VERA HOYOSP-Jacinta Pena Audri RN RN [id number] Lefty Jack RN RN ll1 Vicki Lion RN RN kc6 Jane Skinner Itzel im Oliver, Kathy RN ko1 Corrections: (The following items were deleted from the chart) 13:09 13:07 Notified Nurse Practitioner and/or Physician Truck Sales Representative of a critical lab ll1 result(s), 80,862.5 troponin ll1
[2023-10-27] MEDS ORDERED: HEPARIN/D5W 25,000 UNIT/500 ML BAG IV ONE (14:11)
[2023-10-27] MEDS ORDERED: FAMOTIDINE 20 MG/2 ML VIAL IV ONE (14:11)
[2023-10-27] MEDS ORDERED: FUROSEMIDE 20 MG/ 2ML VIAL ONE (14:11)
[2023-10-27] MEDS ORDERED: HEPARIN 5000 UNIT/ML 1 ML VIAL ONE (14:11)
[2023-10-27 15:39] VITALS: TEMP 97.7
[2023-10-27 15:42] VITALS: O2SAT 97
[2023-10-27 15:43] VITALS: BP 105/72
--- NOTE | 2023-10-28 15:16 | EKG ---
Test Date: 2023-10-27 Test Time: 11:41:56 Manual Tester: YUKI MEASUREMENT RESULTS: Intervals: Rate: 62 MT: QRSD: 142 QT: 488 QTc: 495 [place]: P: MT: QRS: -70 T: 108 INTERPRETIVE STATEMENTS: Sinus rhythm with complete heart block and Wide QRS rhythm with occasional premature ventricular complexes Left axis deviation Nonspecific intraventricular block Inferior infarct, age undetermined Possible Anterolateral infarct, age undetermined Abnormal ECG Compared to ECG 10/27/2023 11:29:46 Uncertain supraventricular rhythm now present Ventricular premature complex(es) now present AV block, complete (third-degree) now present Myocardial infarct finding still present Electronically Signed On 10-28-23 15:12:06 CHIEF CATALYST OPERATOR by Jasmeet Stanford
--- NOTE | 2023-10-28 15:16 | EKG ---
Test Date: 2023-10-27 Test Time: 11:44:27 Digester Cook: YUKI MEASUREMENT RESULTS: Intervals: Rate: 63 AR: QRSD: 140 QT: 472 QTc: 483 [place]: P: AR: QRS: -70 T: 108 INTERPRETIVE STATEMENTS: Sinus rhythm with complete heart block and Wide QRS rhythm with occasional premature ventricular complexes Left axis deviation Nonspecific intraventricular block Possible Lateral infarct, age undetermined Inferior infarct, age undetermined Abnormal ECG Compared to ECG 10/27/2023 11:43:45 AV block, complete (third-degree) now present Fusion complex(es) no longer present AV dissociation no longer present Myocardial infarct finding still present Electronically Signed On 10-28-23 15:11:49 REGIONAL INTERMODAL TRUCK DRIVER by Jasmeet Stanford
--- NOTE | 2023-10-28 15:16 | EKG ---
Test Date: 2023-10-27 Test Time: 11:43:45 Resp Ther: YUIK MEASUREMENT RESULTS: Intervals: Rate: 62 DE: QRSD: 144 QT: 472 QTc: 479 [place]: P: DE: QRS: -70 T: 103 INTERPRETIVE STATEMENTS: Sinus rhythm with AV dissociation and Wide QRS rhythm with premature ventricular complexes or fusion complexes Left axis deviation Nonspecific intraventricular block Possible Lateral infarct, age undetermined Inferior infarct, age undetermined Abnormal ECG Compared to ECG 10/27/2023 11:41:56 Fusion complex(es) now present AV dissociation now present AV block, complete (third-degree) no longer present Myocardial infarct finding still present Electronically Signed On 10-28-23 15:11:56 RESTAURANT AREA DIRECTOR by Jasmeet Stanford
== END 2023-10-27 15:11 | disposition short-term general hospital (02) ==
LOC: ER 10:29
DX: I21.4 Non-ST elevation (NSTEMI) myocardial infarction (principal); I10 Essential (primary) hypertension; I44.2 Atrioventricular block, complete; I31.39 Other pericardial effusion (noninflammatory); E11.22 Type 2 diabetes mellitus with diabetic chronic kidney disease; I13.0 Hypertensive heart and chronic kidney disease with heart failure and stage 1 through stage 4 chronic kidney disease, or unspecified chronic kidney disease; N18.9 Chronic kidney disease, unspecified; I50.9 Heart failure, unspecified; N17.9 Acute kidney failure, unspecified; J10.1 Influenza due to other identified influenza virus with other respiratory manifestations; Z11.52 Encounter for screening for COVID-19
CPT/HCPCS: 96365; 96361; 93005 ×4; 85025; 81001; 36415; 85730; 84484; 83690; 80053; 83880; 87635; 87804 ×2; 74176; 71045; 51702; 96375; 99285; J1644; J1940; J7030